=== PATIENT | male | born 1960 | race Caucasian/White ===

== ENCOUNTER 2023-07-23 08:52 | Outpatient (OUT) | payer MEDICARE, MEDICAID, SELFPAY ==
--- NOTE | 2023-07-23 | XR_ITS ---
The [address] [address] Patient Name: JILLIAN POSADAS MRN: [id number] date: 1960 Sex: M Assigned Patient Location: Current Patient Location: Accession/Order Number: [id number] Exam Date: 07/23/2023 08:53 Report Date: 07/23/2023 13:33 At the request of: RAEANN CARRILLO Procedure: XR ankle TE min 3V EXAMINATION: XR ankle TE min 3V, XR foot TE min 3V HISTORY: BILATERAL ANKLE PAIN COMPARISON: XR foot left 06/26/2022, XR foot right 02/09/2022 FINDINGS: RIGHT FINDINGS: BONES: Advanced degenerative changes the midfoot with complete collapse of plantar arch. Unremarkable ankle joint. Remote fractures and healing/partial healing involving the second through 5th metatarsals. 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 SOFT TISSUES: Soft tissue swelling of the foot and ankle. OTHER: Negative. LEFT FINDINGS: BONES: Advanced degenerative changes of the midfoot with moderate flattening of plantar arch. Unremarkable ankle joint. Heterotopic bone formation distal lateral to the lateral malleolus favoring sequela of remote injury. Amputation of the first toe at the level of the first metatarsal neck. No appreciable cortical destruction or periosteal reaction. SOFT TISSUES: Moderate soft tissue swelling surrounding the foot and ankle. OTHER: Negative. XR/XR ankle TE min 3V IMPRESSION: RIGHT CONCLUSION: 1. 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 2. No appreciable osteomyelitis. 3. Stable surgical changes. LEFT CONCLUSION: 1. Grossly stable marked degenerative changes and stable prior surgical changes. 2. No appreciable ostial myelitis. Electronically authenticated by: YAZAN LARA Date: 07/23/2023 13:33
--- NOTE | 2023-07-23 | XR_ITS ---
The [address] [address] Patient Name: JILLIAN POSADAS MRN: [id number] date: 1960 Sex: M Assigned Patient Location: Current Patient Location: Accession/Order Number: [id number] Exam Date: 07/23/2023 08:53 Report Date: 07/23/2023 13:33 At the request of: RAEANN CARRILLO Procedure: XR foot TE min 3V EXAMINATION: XR ankle TE min 3V, XR foot TE min 3V HISTORY: BILATERAL ANKLE PAIN COMPARISON: XR foot left 06/26/2022, XR foot right 02/09/2022 FINDINGS: RIGHT FINDINGS: BONES: Advanced degenerative changes the midfoot with complete collapse of plantar arch. Unremarkable ankle joint. Remote fractures and healing/partial healing involving the second through 5th metatarsals. 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 SOFT TISSUES: Soft tissue swelling of the foot and ankle. OTHER: Negative. LEFT FINDINGS: BONES: Advanced degenerative changes of the midfoot with moderate flattening of plantar arch. Unremarkable ankle joint. Heterotopic bone formation distal lateral to the lateral malleolus favoring sequela of remote injury. Amputation of the first toe at the level of the first metatarsal neck. No appreciable cortical destruction or periosteal reaction. SOFT TISSUES: Moderate soft tissue swelling surrounding the foot and ankle. OTHER: Negative. XR/XR foot TE min 3V IMPRESSION: RIGHT CONCLUSION: 1. 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 2. No appreciable osteomyelitis. 3. Stable surgical changes. LEFT CONCLUSION: 1. Grossly stable marked degenerative changes and stable prior surgical changes. 2. No appreciable ostial myelitis. Electronically authenticated by: YAZAN LARA Date: 07/23/2023 13:33
== END 2023-07-23 08:53 | disposition home or self-care (01) ==
PROVIDERS: Visit Provider Podiatrist Foot & Ankle Surgery
DX: M25.571 Pain in right ankle and joints of right foot (principal); M25.572 Pain in left ankle and joints of left foot; M79.671 Pain in right foot; M79.672 Pain in left foot; E11.621 Type 2 diabetes mellitus with foot ulcer; L97.428 Non-pressure chronic ulcer of left heel and midfoot with other specified severity
CPT/HCPCS: 11042; 73610; 73630; G0463

== ENCOUNTER 2023-07-23 10:28 | Outpatient (OUT) | payer MEDICARE, MEDICAID, SELFPAY ==
[2023-07-23 11:09] LABS: Basophils Percent Auto 0.3 % (0.2-2.0); Eosinophils Absolute Auto 0.2 10^3/uL (0.0-0.7); Eosinophils Percent Auto 2.1 % (0.9-7.0); Hematocrit 33.4 % (42.0-54.0); Hemoglobin 10.7 g/dL (14.0-18.0); Immature Granulocytes Abs Auto 0.03 10^3/uL (0.00-0.03); Immature Granulocytes Pct Auto 0.3 % (0.0-0.5); Lymphocytes Percent Auto 23.3 % (20.5-60.0); Mean Corpuscular Hemoglobin 30.6 pg (25.9-34.0); Mean Corpuscular Volume 95.4 fL (80.0-94.0); Mean Platelet Volume 9.6 fL (9.5-13.5); Monocytes Absolute Auto 0.5 10^3/uL (0.3-0.8); Monocytes Percent Auto 6.2 % (1.7-12.0); Neutrophils Absolute Auto 5.9 10^3/uL (1.4-6.5); Neutrophils Percent Auto 67.8 % (43.0-75.0); Platelet Count 273 10^3/uL (150-450); Red Cell Distribution Width 13.3 % (11.0-15.0); White Blood Count 8.7 10^3/uL (4.0-11.0)
[2023-07-23 11:10] LABS: C Reactive Protein 1.63 mg/dL (<=0.50)
[2023-07-23 11:13] LABS: Erythrocyte Sedimentation Rate 50 mm/hr (<=20)
== END 2023-07-23 10:29 | disposition home or self-care (01) ==
LOC: LAB 10:32
PROVIDERS: PCP Student in an Organized Health Care Education/Training Program; Visit Provider Podiatrist Foot & Ankle Surgery
DX: M14.672 Charcot's joint, left ankle and foot (principal)
CPT/HCPCS: 36415; 85025; 85652; 86140

== ENCOUNTER 2023-07-30 15:34 | Outpatient (OUT) | payer MEDICARE, MEDICAID, SELFPAY | END 2023-07-30 15:35 | disposition home or self-care (01) | LOC: WC 15:34 | PROVIDERS: PCP Student in an Organized Health Care Education/Training Program; Visit Provider Podiatrist Foot & Ankle Surgery | DX: E11.621 Type 2 diabetes mellitus with foot ulcer (principal); L97.428 Non-pressure chronic ulcer of left heel and midfoot with other specified severity | CPT/HCPCS: 11042 ==

== ENCOUNTER 2023-08-01 09:12 | Outpatient (OUT) | payer MEDICARE, MEDICAID, SELFPAY ==
--- NOTE | 2023-08-01 09:15 | CT_ITS ---
[address] [address] Patient Name: JILLIAN POSADAS MRN: [id number] date: 1960 Sex: M Assigned Patient Location: CT Current Patient Location: CT Accession/Order Number: [id number] Exam Date: 08/01/2023 09:25 Report Date: 08/01/2023 10:19 At the request of: JUANJOSE KAUR Procedure: CT ankle LT wo con EXAMINATION: CT ankle LT wo con HISTORY: Left midfoot charcot,chronic ulcer COMPARISON: 07/23/2023 plain x-ray TECHNIQUE: Multi-planar CT images were created without IV contrast. Dose reduction techniques were achieved by using automated exposure control and/or adjustment of mA and/or kV according to patient size and/or use of iterative reconstruction technique. FINDINGS: BONES: No acute fracture or dislocation. Marked degenerative changes of the midfoot and hindfoot with bone destruction bony remodeling and heterotopic ossification and extensive cystic changes. Dorsal displacement of the midfoot in relation to the hindfoot with plantar rotation of the hindfoot. SOFT TISSUES: Diffuse soft tissue swelling . 3.5 cm plantar ulceration best seen on sagittal image 69 EFFUSION: Large joint effusion OTHER: Negative. CT/CT ankle LT wo con IMPRESSION: Severe degenerative changes stable from the prior plain x-ray consistent with neuropathic osteoarthropathy Plantar ulceration with no bony changes to suggest osteomyelitis Electronically authenticated by: LUPE SOTO Date: 08/01/2023 10:19
== END 2023-08-01 09:13 | disposition home or self-care (01) ==
LOC: CT 09:12
PROVIDERS: PCP Student in an Organized Health Care Education/Training Program; Visit Provider Podiatrist Foot & Ankle Surgery
DX: M14.672 Charcot's joint, left ankle and foot (principal); L97.429 Non-pressure chronic ulcer of left heel and midfoot with unspecified severity
CPT/HCPCS: 73700

== ENCOUNTER 2023-08-06 09:00 | Outpatient (OUT) | payer MEDICARE, MEDICAID, SELFPAY | END 2023-08-06 09:01 | disposition home or self-care (01) | LOC: WC 08-07 09:09 | PROVIDERS: PCP Student in an Organized Health Care Education/Training Program; Visit Provider Physician Assistant | DX: E11.621 Type 2 diabetes mellitus with foot ulcer (principal); L97.428 Non-pressure chronic ulcer of left heel and midfoot with other specified severity; L97.418 Non-pressure chronic ulcer of right heel and midfoot with other specified severity; S90.821A Blister (nonthermal), right foot, initial encounter | CPT/HCPCS: A6213; G0463 ==

== ENCOUNTER 2023-08-13 10:27 | Outpatient (OUT) | payer MEDICARE, MEDICAID, SELFPAY | END 2023-08-13 10:28 | disposition home or self-care (01) | LOC: WC 10:27 | PROVIDERS: PCP Student in an Organized Health Care Education/Training Program; Visit Provider Podiatrist Foot & Ankle Surgery | DX: E11.621 Type 2 diabetes mellitus with foot ulcer (principal); L97.428 Non-pressure chronic ulcer of left heel and midfoot with other specified severity; L97.418 Non-pressure chronic ulcer of right heel and midfoot with other specified severity | CPT/HCPCS: 11042; 29445; A6213 ==

== ENCOUNTER 2023-08-21 09:00 | Outpatient (OUT) | payer MEDICARE, MEDICAID, SELFPAY ==
--- NOTE | 2023-08-21 09:24 | VEIN_ITS ---
The [place] [address] Patient Name: JILLIAN POSADAS MRN: [id number] date: 1960 Sex: M Assigned Patient Location: Current Patient Location: Accession/Order Number: [id number] Exam Date: 08/21/2023 09:35 Report Date: 08/21/2023 11:37 At the request of: JUANJOSE KAUR Procedure: VC SEGMENTAL PRESSURES EXAM: VC SEGMENTAL PRESSURES HISTORY: R09.89 COMPARISON: None. FINDINGS: Segmental pressures presented as follows (right, left) in mmHg. Brachial: 130, 131 Upper thigh: 165, 188 Lower thigh: 162, 176 Calf: 155, 163 DPA: 96, 143 MATTRESS STUFFER: 148, 136 1st Toe: 154, 233 STEW: 1.13, 1.09 TBI: 1.18, 1.78 The ABIs are Normal The TBI's are normal in the right, elevated on the left suggesting calcification of vessel hardening PVR waveforms: Right leg: Thigh: Grade C, moderate PAD Above knee: Grade C, moderate PAD Below knee: Grade B, mild PAD Right ankle: Grade C, moderate PAD Left leg: Thigh: Grade C, moderate PAD Above knee: Grade C, moderate PAD Below knee: Grade C, moderate PAD Right ankle: Grade B, mild PAD VEIN/VC SEGMENTAL PRESSURES IMPRESSION: Elevated tibial TBI left first metatarsal PVR waveforms suggest bilateral mild to moderate peripheral arterial disease Electronically authenticated by: LUPE SOTO Date: 08/21/2023 11:37
--- OUTSIDE RECORDS SUMMARY | 2023-08-21 09:34 | XMS_ITS | CCD ---
Author Organization [facility] Care Team Providers Care Coding Machine Operator Name Role Phone Moises Lesterssjeff Schaefer Primary Care Provider [phone] MOISES LESTERSSICA Silvano Primary Care Physician Yojake CHRISTINE Sara Silvano Primary Care Provider [phone] TITO MOREJON Attending Unavailable YONLEY, SARA Primary Care Unavailable Yonley DO, Sara L Primary Care Provider Yojake CHRISTINE Sara Silvano Primary Care Provider YONLEY, SARA L Primary Care Unavailable YONLEY, SARA L Attending Unavailable YONLEY, SARA L Referring Unavailable YONLEY, SARA L Primary Care Unavailable YONLEY, SARA L Attending Unavailable YONLEY, SARA L Referring Unavailable YONLEY, SARA L Primary Care Unavailable BACK, OMID Admitting Unavailable BACK, OMID Attending Unavailable FESTUS PEACE Consulting Unavailabl e BACK, OMID Consulting Unavailable YONLEY, SARA L Referring Unavailable YONLEY, SARA L Primary Care Unavailable YONLEY, SARA L Referring Unavailable YONLEY, SARA L Primary Care Unavailable YONLEY, SARA L Primary Care Unavailable YONLEY, SARA L Referring Unavailable YONLEY, SARA L Primary Care Unavailable YONLEY, SARA L Attending Unavailable YONLEY, SARA L Referring Unavailable YONLEY, SARA L Primary Care Unavailable YONLEY, SARA L Attending Unavailable YONLEY, SARA L Referring Unavailable YONLEY, SARA L Primary Care Unavailable YONLEY, SARA L Attending Unavailable YONLEY, SARA L Referring Unavailable YONLEY, SARA L Primary Care Unavailable YONLEY, SARA L Referring Unavailable FESTUS PEACE Attending Unavailabl e FESTUS PEACE Attending Unavailabl e Dolce, Zenon R Attending Unavailable Dolce, Zenon R Attending Unavailable Dolce, Zenon R Attending Unavailable Dolce, Zenon R Attending Unavailable Dolce, Zenon R Attending Unavailable Dolce, Zenon R Attending Unavailable Dolce, Zenon R Attending Unavailable Dolce, Zenon R Attending Unavailable Dolce, Zenon R Attending Unavailable Dolce, Zenon R Attending Unavailable Dolce, Zenon R Attending Unavailable Dolce, Zenon R Attending Unavailable Dolce, Zenon R Attending Unavailable Dolce, Zenon R Attending Unavailable AkkinaElder Attending Unavailable AkkinaElder Referring Unavailable Akkina Elder Admitting Unavailable Dolce, Zenon R Attending Unavailable Dolce, Zenon R Admitting Unavailable Moussawi, Anthony Attending Unavailable MoussawiPerlamacristian Admitting Unavailable Dolce, Zenon R Attending Unavailable Dolce, Zenon R Attending Unavailable Dolce, Zenon R Attending Unavailable Dolce, Zenon R Attending Unavailable Dolce, Zenon R Attending Unavailable Dolce, Zenon R Attending Unavailable Dolce, Zenon R Attending Unavailable Bill Ochoa Attending Unavailable Dolce, Zenon R Attending Unavailable Dolce, Zenon R Attending Unavailable Dolce, Zenon R Attending Unavailable Dolce, Zenon R Attending Unavailable Dolce, Zenon R Attending Unavailable Bill Ochoa Attending Unavailable Dolce, Zenon R Attending Unavailable Dolce, Zenon R Attending Unavailable Medications Current Medications Medication Drug Class(es) Dates Sig (Normalized) Sig (Original) Acetaminophen (3 sources) Start: 07-03-2023 acetaminophen (TYLENOL) tablet 650 mg Start: 06-26-2022 acetaminophen (TYLENOL) tablet 650 mg Start: 03-20-2020 acetaminophen (TYLENOL) tablet 650 mg acetaminophen 325 mg / HYDROcodone bitartrate 5 mg oral tablet (20 sources) Opioid Agonist Start: 05-16-2020 HYDROcodone-ac etaminophen (NORCO) 5-325 MG per tablet 1 tablet Start: 11-24-2019 Randolph 325 mg-5 mg oral tablet 1 tab(s), Oral, q6hr for pain, 6 tab(s), Refill(s) 0 Start Date: 11/24/19 Status: Ordered Advair Discus 100 mcg-50 mcg Powder (20 sources) Start: 01-19-2012 take 1 puff(s) by inhalation twice daily Advair Discus 100 mcg-50 mcg Powder 1 puff(s), Inhalation, BID, Refill(s) 0 Start Date: 01/19/12 Status: Ordered [id number] 200 actuat albuterol 0.09 mg/actuat metered dose inhaler (14 sources) beta2-Adrenergi c Agonist Start: 07-01-2023 take 2 puff(s) by inhalation every four hours as needed for wheezing albuterol sulfate HFA (PROVENTIL;VENTOLI N;PROAIR) 108 (90 Base) MCG/ACT inhaler INHALE 2 PUFFS into the lungs EVERY 4 HOURS NEEDED FOR WHEEZING 8.5 g 3 07/01/2023 Active Start: 01-03-2023 take 2 puff(s) by in halation every four hours as needed for wheezing albuterol sulfate HFA (VENTOLIN HFA) 108 (90 Base) MCG/ACT inhaler Inhale 2 puffs into the lungs every 4 hours as needed for Wheezing 18 g 3 01/03/2023 Active Start: 06-04-2022 take 2 puff(s) by mo uth every four hours as needed for wheezing VENTOLIN HFA 108 (90 Base) MCG/ACT inhaler INHALE 2 PUFFS BY MOUTH EVERY 4 HOURS NEEDED FOR WHEEZING. 18 g 0 06/04/2022 Active Start: 12-20-2021 take 2 puff(s) by mo uth every four hours as needed for wheezing PROAIR HFA 108 (90 Base) MCG/ACT inhaler INHALE 2 PUFFS BY MOUTH EVERY 4 HOURS NEEDED FOR WHEEZING 8.5 g 5 12/20/2021 Active Start: 06-15-2020 take 2 puff(s) by mo uth every four hours as needed for wheezing albuterol sulfate HFA 108 (90 Base) MCG/ACT inhaler INHALE 2 PUFFS BY MOUTH EVERY 4 HOURS NEEDED FOR WHEEZING 18 g 5 06/15/2020 Active Start: 01-20-2019 take 2 puff(s) by in halation every four hours as needed for wheezing albuterol sulfate HFA (PROAIR HFA) 108 (90 Base) MCG/ACT inhaler Inhale 2 puffs into the lungs every 4 hours as needed for Wheezing 1 Inhaler 5 01/20/2019 Active Start: 09-23-2018 take 2 puff(s) by in halation every four hours as needed for wheezing albuterol sulfate HFA (VENTOLIN HFA) 108 (90 Base) MCG/ACT inhaler Inhale 2 puffs into the lungs every 4 hours as needed for Wheezing or Shortness of Breath 1 Inhaler 0 09/23/2018 Active albuterol sulfate HFA 108 (90 Base) MCG/ACT inhaler (6 sources) Start: 12-17-2019 take 2 puff(s) by inhalation every four hours as needed for wheezing albuterol sulfate HFA 108 (90 Base) MCG/ACT inhaler INHALE 2 PUFFS EVERY 4 HOURS NEEDED FOR WHEEZING 18 g 5 12/17/2019 Active amoxicillin 500 mg oral capsule (1 source) Penicillin-class Antibacterial Start: 07-05-2023 End: 07-15-2023 take 1 capsule by mouth three times daily amoxicillin (AMOXIL) 500 MG capsule Take 1 capsule by mouth 3 times daily for 10 days 30 capsule 0 07/05/2023 07/15/2023 Active amoxicillin 875 mg / clavulanate 125 mg oral tablet (4 sources) Penicillin-class Antibacterial Start: 06-21-2022 End: 07-01-2022 take 1 tablet by mouth twice daily amoxicillin-clavu lanate (AUGMENTIN) 875-125 MG per tablet Take 1 tablet by mouth 2 times daily for 10 days 20 tablet 0 06/21/2022 06/30/2022 Discontinued (Stop Taking at Discharge) Start: 04-18-2021 End: 04-18-2021 amoxicillin-clavulanate (AUG MENTIN) 875-125 MG per tablet 1 tablet Start: 04-18-2021 End: 04-28-2021 take 1 tablet by mouth twice daily amoxicillin-clavulanate (AUGMENTIN) 875-125 MG per tablet Take 1 tablet by mouth 2 times daily for 10 days 20 tablet 0 04/18/2021 04/28/2021 Active becaplermin 0.0001 mg/mg topical gel (3 sources) Human Platelet-derived Growth Factor Start: 05-12-2020 REGRANEX 0.01 % gel benzonatate 100 mg oral capsule (4 sources) Non-narcotic Antitussive Start: 08-11-2022 End: 08-25-2022 take 1 capsule by mouth three times daily as needed for cough Tessalon 100 mg Cap 100 mg = 1 cap(s), Oral, TID, PRN Cough, X 2 week(s), # 20 cap(s), Refills(s) 0, Pharmacy: [id number], 175.3, cm, 08/09/22 15:05:00 EDT, Height/Length Dosing, 96, kg, 08/09/22 15:05:00 EDT, Weight Dosing Start Date: 08/11/22 Stop Date: 08/25/22 Status: Ordered Blood Glucose Calibration LIQD (2 sources) Start: 03-19-2023 Blood Glucose Calibration LIQD Indications: Type 2 diabetes mellitus with diabetic polyneuropathy, with long-term current use of insulin (HCC) Use to calibrate glucometer as needed 1 each 5 03/19/2023 Active Blood Glucose Monitoring Suppl (TRUE METRIX AIR GLUCOSE METER) EDDIE (20 sources) Start: 02-13-2023 Blood Glucose Monitoring Suppl (TRUE METRIX AIR GLUCOSE METER) EDDIE Indications: Type 2 diabetes mellitus with diabetic polyneuropathy, with long-term current use of insulin (HCC) Use to test sugar QID, AC and HS 1 each 0 02/13/2023 Active Start: 12-03-2017 Blood Glucose Monitoring Suppl (TRUE METRIX AIR GLUCOSE METER) EDDIE Use to test sugar TID and PRN 1 Device 0 12/03/2017 Active Blood Glucose Monitoring Suppl (TRUE METRIX METER) w/Device KIT (19 sources) Start: 01-20-2019 Blood Glucose Monitoring Suppl (TRUE METRIX METER) w/Device KIT use THREE TIMES DAILY 0 01/20/2019 Active 60 actuat budesonide 0.16 mg/actuat / formoterol fumarate 0.0045 mg/actuat metered dose inhaler (20 sources) Corticosteroid, beta2-Adrenergi c Agonist Start: 05-21-2023 take 2 puff(s) by inhalation twice daily budesonide-formot elizabeth (SYMBICORT) 160-4.5 MCG/ACT AERO INHALE 2 PUFFS TWICE DAILY. 30.6 g 5 05/21/2023 Active Start: 11-17-2021 take 2 puff(s) by in halation twice daily budesonide-formoterol (SYMBICORT) 160-4.5 MCG/ACT AERO INHALE 2 PUFFS into the lungs TWICE DAILY 30.6 g 5 11/17/2021 Active Start: 11-15-2020 take 2 puff(s) by in halation twice daily budesonide-formoterol (SYMBICORT) 160-4.5 MCG/ACT AERO Inhale 2 puffs into the lungs 2 times daily 30.6 g 1 11/15/2020 Active Start: 04-13-2020 take 2 puff(s) by in halation twice daily SYMBICORT 160-4.5 MCG/ACT AERO Inhale 2 puffs into the lungs 2 times daily 30.6 g 1 04/13/2020 Active Start: 03-20-2020 take 2 puff(s) by in halation twice daily 2 puff, Inhalation, 2 TIMES DAILY, First dose on 03/20/20 at 0900 Rinse mouth out with water (without swallowing) after every dose. Start: 10-22-2019 take 2 puff(s) by in halation twice daily SYMBICORT 160-4.5 MCG/ACT AERO Inhale 2 puffs into the lungs 2 times daily 30.6 g 1 10/22/2019 Active Start: 01-20-2019 take 2 puff(s) by in halation twice daily budesonide-formoterol (SYMBICORT) 160-4.5 MCG/ACT AERO Inhale 2 puffs into the lungs 2 times daily 3 Inhaler 1 01/20/2019 Active Start: 09-23-2018 take 2 puff(s) by in halation twice daily budesonide-formoterol (SYMBICORT) 160-4.5 MCG/ACT AERO Inhale 2 puffs into the lungs 2 times daily 1 Inhaler 0 09/23/2018 Active calcium chloride 0.0014 meq/ml / potassium chloride 0.004 meq/ml / sodium chloride 0.103 meq/ml / sodium lactate 0.028 meq/ml injectable solution (1 source) Start: 05-16-2020 lactated ringe rs infusion cefepime (MAXIPIME) 2,000 mg in sodium chloride 0.9 % 50 mL IVPB (mini-bag) (1 source) Start: 06-27-2022 End: 07-04-2022 cefepime (MAXIPIME) 2,000 mg in sodium chloride 0.9 % 50 mL IVPB (mini-bag) cephalexin 500 mg oral capsule (4 sources) Cephalosporin Antibacterial Start: 04-10-2022 End: 04-20-2022 take 1 capsule by mouth three times daily cephALEXin (KEFLEX) 500 MG capsule Take 1 capsule by mouth 3 times daily for 10 days 30 capsule 0 04/10/2022 04/20/2022 Active Start: 02-09-2022 End: 02-19-2022 take 1 capsule by mouth three times daily cephALEXin (KEFLEX) 500 MG capsule Take 1 capsule by mouth 3 times daily for 10 days 30 capsule 0 02/09/2022 02/19/2022 Start: 12-13-2020 take 1 capsule by mo ut four times daily cephALEXin (KEFLEX) 500 MG capsule Take 1 capsule by mouth 4 times daily 40 capsule 0 12/13/2020 Active Start: 11-30-2020 take 1 capsule by mo ut four times daily cephALEXin (KEFLEX) 500 MG capsule Take 1 capsule by mouth 4 times daily 40 capsule 0 11/30/2020 Active clindamycin 300 mg oral capsule (3 sources) Lincosamide Antibacterial Start: 06-21-2022 End: 06-30-2022 take 1 capsule by mouth three times daily clindamycin (CLEOCIN) 300 MG capsule Take 1 capsule by mouth 3 times daily for 7 days 21 capsule 0 06/21/2022 06/30/2022 Discontinued (Stop Taking at Discharge) Start: 06-21-2022 End: 06-21-2022 clindamycin (CLEOCIN) capsul e 300 mg Continuous Blood Gluc Manager Plant (DEXCOM G6 COOK RAILROAD) EDDIE (2 sources) Start: 12-13-2020 Continuous Blood Gluc Manager Plant (DEXCOM G6 COOK RAILROAD) EDDIE Indications: Uncontrolled type 2 diabetes mellitus with peripheral neuropathy (HCC) , detention current use of insulin (HCC) Use to monitor glucose continuously. Replace yearly. 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 Replace every 30 days 3 each 3 12/13/2020 Active Continuous Blood Gluc Transmit (DEXCOM G6 TRANSMITTER) [facility] (2 sources) Start: 12-13-2020 Continuous Blood Gluc Transmit (DEXCOM G6 TRANSMITTER) [facility] Indications: Uncontrolled type 2 diabetes mellitus with peripheral neuropathy (HCC) , detention current use of insulin (HCC) Use to monitor glucose continuously. Replace every 3 mos. 1 each 3 12/13/2020 Active 12 hr dextromethorphan hydrobromide 60 mg / guaiFENesin 1200 mg extended release oral tablet (1 source) Uncompetitive [place] te Receptor Antagonist, Sigma-1 Agonist Start: 04-18-2021 take 1 tablet by mouth every twelve hours as needed for cough Dextromethorphan-g uaiFENesin 60-1200 MG TB12 Take 1 tablet by mouth every 12 hours as needed (cough congestion) 28 tablet 0 04/18/2021 Active diphenhydrAMINE hydrochloride 25 mg oral capsule (20 sources) Histamine-1 Receptor Antagonist Start: 01-19-2012 take 1 capsule by mouth twice daily Benadryl 25 mg Cap 25 mg = 1 cap(s), Oral, BID, Refills(s) 0 Start Date: 01/19/12 Status: Ordered doxycycline hyclate 100 mg oral capsule (3 sources) Tetracycline-class Drug Start: 06-30-2022 End: 07-07-2022 take 1 capsule by mouth twice daily doxycycline hyclate (VIBRAMYCIN) 100 MG capsule Take 1 capsule by mouth 2 times daily for 7 days 14 capsule 0 06/30/2022 07/07/2022 Active Start: 03-26-2020 End: 04-02-2020 take 1 capsule by mouth twice daily doxycycline hyclate (VIBRAMYCIN) 100 MG capsule Take 1 capsule by mouth 2 times daily for 7 days 14 capsule 0 03/26/2020 04/02/2020 Active doxycycline (VIBRAMYCIN) 100 mg in sodium chloride 0.9 % 100 mL IVPB (1 source) Start: 07-04-2023 End: 07-11-2023 doxycycline (VIBRAMYCIN) 100 mg in sodium chloride 0.9 % 100 mL IVPB 0.5 ml dulaglutide 3 mg/ml auto-injector (9 sources) GLP-1 Receptor Agonist Start: 04-30-2022 inject 1.5 mg by subcutaneous injection every week TRULICITY 1.5 MG/0.5ML SC injection INJECT 1.5mg under the skin once a week. 2 mL 5 04/30/2022 Active Start: 11-17-2021 Dulaglutide (T RULICITY) 1.5 MG/0.5ML SOPN Inject 1.5 mg into the skin once a week 4 Adjustable Dose Pre-filled Pen Syringe 5 11/17/2021 Active Start: 12-13-2020 Dulaglutide (T RULICITY) 1.5 MG/0.5ML SOPN Inject 1.5 mg into the skin once a week 4 pen 5 12/13/2020 Active Dulaglutide (TRULICITY) 3 MG/0.5ML SOPN (2 sources) Start: 05-21-2023 Dulaglutide (TRULICITY) 3 MG/0.5ML SOPN Inject 3 mg into the skin once a week 2 mL 5 05/21/2023 Active empagliflozin 10 mg oral tablet (1 source) Sodium-Glucose Cotransporter 2 Inhibitor Start: 06-20-2023 take 1 tablet by mouth once daily JARDIANCE 10 MG tablet Take 1 tablet by mouth daily 0 06/20/2023 Active esomeprazole 40 mg delayed release oral capsule (20 sources) Proton Pump Inhibitor Start: 01-19-2012 Nexium 40 mg Cap-EC Oral, Daily, Refills(s) 0 Start Date: 01/19/12 Status: Ordered ferrous sulfate 325 mg oral tablet (20 sources) Start: 08-11-2022 take 1 tablet by mouth three times daily ferrous sulfate 325 mg Tab 325 mg = 1 tab(s), Oral, TID, # 90 tab(s), Refills(s) 0, Pharmacy: [id number], 175.3, cm, 08/09/22 15:05:00 EDT, Height/Length Dosing, 96, kg, 08/09/22 15:05:00 EDT, Weight Dosing Start Date: 08/11/22 Status: Ordered 30 actuat fluticasone furoate 0.2 mg/actuat / vilanterol 0.025 mg/actuat dry powder inhaler (5 sources) Corticosteroid, beta2-Adrenergic Agonist Start: 04-19-2020 take 1 puff(s) by inhalation once daily Fluticasone furoate-vilanter ol (BREO ELLIPTA) 200-25 MCG/INH AEPB inhaler Inhale 1 puff into the lungs daily 30 each 5 04/19/2020 Active glimepiride 4 mg oral tablet (20 sources) Sulfonylurea Start: 08-11-2022 take 1 tablet by mouth twice daily at mealtime glimepiride (AMARYL) 4 MG tablet Take 1 tablet by mouth 2 times daily (with meals) 180 tablet 3 05/21/2023 Active Start: 01-19-2012 take 1 tablet by yadira th once daily glimepiride 4 mg Tab 4 mg = 1 tab(s), Oral, Daily, Refills(s) 0 Start Date: 01/19/12 Status: Ordered 1000 ml glucose 100 mg/ml injection (9 sources) Start: 07-03-2023 take 1 mL intravenously every hour IntraVENous, at 100 mL/hr, CONTINUOUS PRN, if blood glucose remains LESS THAN 70 mg/dL after 2 dextrose 10% intravenous boluses or administration of glucagon, Starting on Sat07/03/23 at 1750 If blood glucose fails to stabilize after 2 dextrose 10% intravenous boluses or glucagon administration, start dextrose 10% infusion at 100 mL/hour and repeat blood glucose at 30 and 60 minutes. If blood glucose is GREATER THAN 70 mg/dL after 60 minutes, discontinue dextrose 10% infusion. Start: 07-03-2023 dextrose bolus 10% 125 mL Start: 07-03-2023 16 g (4 tablet ), Oral, PRN, Starting on Sat07/03/23 at 1750, Until Discontinued, Low blood sugar If blood glucose is LESS THAN 70 mg/dL and patient is alert and tolerating oral. Give 4 tablets (16g) Repeat blood glucose in 15 minutes. If blood glucose is LESS THAN 70 mg/dL, repeat treatment and recheck blood glucose in 15 minutes x 2. If blood glucose remains LESS THAN 70 mg/dL, notify provider. Start: 06-26-2022 take 1 mL intravenou sly every hour IntraVENous, at 100 mL/hr, CONTINUOUS PRN, if blood glucose remains LESS THAN 70 mg/dL after 2 dextrose 10% intravenous boluses or administration of glucagon, Starting on Sat06/26/22 at 1820 If blood glucose fails to stabilize after 2 dextrose 10% intravenous boluses or glucagon administration, start dextrose 10% infusion at 100 mL/hour and repeat blood glucose at 30 and 60 minutes. If blood glucose is GREATER THAN 70 mg/dL after 60 minutes, discontinue dextrose 10% infusion. Start: 06-26-2022 dextrose bolus 10% 125 mL Start: 06-26-2022 16 g (4 tablet ), Oral, PRN, Starting on Sat06/26/22 at 1820, Until Discontinued, Low blood sugar If blood glucose is LESS THAN 70 mg/dL and patient is alert and tolerating oral. Give 4 tablets (16g) Repeat blood glucose in 15 minutes. If blood glucose is LESS THAN 70 mg/dL, repeat treatment and recheck blood glucose in 15 minutes x 2. If blood glucose remains LESS THAN 70 mg/dL, notify provider. Start: 03-20-2020 15 g, Oral, MS N, Low blood sugar, Starting 03/20/20 at 0358 If blood glucose less than 50 mg/dL and patient ALERT and TOLERATING PO, give 2 tubes glucose gel. If blood glucose less than 70 mg/dL and patient ALERT and TOLERATING PO, give 1 tube glucose gel. Repeat blood glucose in 15 minutes. If blood glucose is less than 70 mg/dL, repeat treatment and recheck blood glucose in 15 minutes x2 and notify provider. Start: 03-20-2020 12.5 g, Intrav enous, PRN, Low blood sugar, Blood glucose less than 70 mg/dL and patient NOT ALERT or NPO., Starting 03/20/20 at 0358 If patient does not respond within 5 minutes, repeat dose x1. Start D5W at 100 mL/hour until ordering provider can be reached. Repeat blood glucose in 15 minutes. If blood glucose is less than 70 mg/dL, repeat treatment and recheck blood glucose in 15 minutes x2. If using Glucostabilizer, dose as instructed per system. Start: 03-20-2020 100 mL/hr, Int ravenous, at 100 mL/hr, PRN, Low blood sugar, Starting 03/20/20 at 0358 Start infusion following administration of dextrose 50% or glucagon. 12 hr guaiFENesin 600 mg extended release oral tablet (4 sources) Start: 08-11-2022 End: 08-25-2022 take 1 tablet by mouth twice daily Mucinex 600 mg Tab-ER 600 mg = 1 tab(s), Oral, BID, X 2 week(s), # 28 tab(s), Refills(s) 0, Pharmacy: [id number], 175.3, cm, 08/09/22 15:05:00 EDT, Height/Length Dosing, 96, kg, 08/09/22 15:05:00 EDT, Weight Dosing Start Date: 08/11/22 Stop Date: 08/25/22 Status: Ordered hydroCHLOROthiazide 25 mg / lisinopril 20 mg oral tablet (17 sources) Thiazide Diuretic, Angiotensin Converting Enzyme Inhibitor Start: 04-30-2022 End: 06-30-2022 take 0.5 tablet by mouth once daily lisinopril-hydroCH LOROthiazide (PRINZIDE;ZESTORET IC) 20-25 MG per tablet TAKE 1/2 (ONE-HALF) OF A TABLET BY MOUTH EVERY DAY. 45 tablet 5 04/30/2022 06/30/2022 Discontinued (Stop Taking at Discharge) Start: 11-17-2021 take 0.5 tablet by mouth once daily lisinopril-hydroCHLOROthiazide (PRINZIDE;ZESTORETIC) 20-25 MG per tablet Take 0.5 tablets by mouth daily 45 tablet 1 11/17/2021 Active Start: 11-15-2020 take 0.5 tablet by mouth once daily lisinopril-hydroCHLOROthiazide (PRINZIDE;ZESTORETIC) 20-25 MG per tablet Take 0.5 tablets by mouth daily 45 tablet 1 11/15/2020 Active Start: 04-13-2020 take 0.5 tablet by mouth once daily lisinopril-hydroCHLOROthiazide (PRINZIDE;ZESTORETIC) 20-25 MG per tablet Take 0.5 tablets by mouth daily 45 tablet 1 04/13/2020 Active Start: 09-23-2018 take 0.5 tablet by mouth once daily lisinopril-hydrochlorothiazide (PRINZIDE;ZESTORETIC) 20-25 MG per tablet Take 0.5 tablets by mouth daily 45 tablet 1 10/21/2018 Active hydroCHLOROthiazide 12.5 mg / losartan potassium 50 mg oral tablet (20 sources) Thiazide Diuretic, Angiotensin 2 Receptor Pierre Start: 01-19-2012 take 1 tablet by mouth once daily hydrochlorothiazide-losartan 12.5 mg-50 mg Tab 1 tab(s), Oral, Daily, Refill(s) 0 Start Date: 01/19/12 Status: Ordered sodium hypochlorite 2.5 mg/ml topical solution (2 sources) Start: 10-17-2022 HYSEPT 0.25 % SOLN Apply onc e daily for infected wound as directed for 14 days 0 10/17/2022 Active 3 ml insulin aspart, human 100 unt/ml pen injector (12 sources) Insulin Analog Start: 05-21-2023 insulin aspart (NOVOLOG FLEXPEN) 100 UNIT/ML injection pen Inject 40 Units into the skin 3 times daily (before meals) 15 mL 5 05/21/2023 Active Start: 04-30-2022 NOVOLOG FLEXPE N 100 UNIT/ML injection pen inject 15 units into the skin 3 (THREE) times a day before meals 15 mL 5 04/30/2022 Active Start: 09-25-2021 NOVOLOG FLEXPE N 100 UNIT/ML injection pen inject 15 units into the skin 3 (THREE) times a day before meals 15 mL 5 09/25/2021 Active Start: 11-15-2020 insulin aspart (NOVOLOG FLEXPEN) 100 UNIT/ML injection pen Inject 10 Units into the skin 3 times daily (before meals) 5 pen 5 11/15/2020 Active 3 ml insulin degludec 100 unt/ml pen injector (19 sources) Insulin Analog Start: 06-25-2023 TRESIBA FLEXTO UCH 100 UNIT/ML SOPN Inject 70 Units into the skin daily 0 06/25/2023 Active Start: 05-21-2023 End: 06-20-2023 Insulin Degludec (TRESIBA FL EXTOUCH) 100 UNIT/ML SOPN Inject 70 Units into the skin daily 45 mL 5 05/21/2023 06/20/2023 Active Start: 05-18-2022 Insulin Deglud ec (TRESIBA FLEXTOUCH) 200 UNIT/ML SOPN INJECT 100 UNITS under the skin once DAILY. 27 mL 5 05/18/2022 Active Start: 11-17-2021 Insulin Deglud ec (TRESIBA FLEXTOUCH) 200 UNIT/ML SOPN inejct 100 units into the skin daily 27 mL 5 11/17/2021 Active Start: 04-10-2021 Insulin Deglud ec (TRESIBA FLEXTOUCH) 200 UNIT/ML SOPN inejct 90 units into the skin daily 27 mL 5 04/10/2021 Active Start: 11-15-2020 Insulin Deglud ec (TRESIBA FLEXTOUCH) 200 UNIT/ML SOPN inejct 90 units into the skin daily 27 mL 5 11/15/2020 Active Start: 04-13-2020 Insulin Deglud ec (TRESIBA FLEXTOUCH) 200 UNIT/ML SOPN inejct 90 units into the skin daily 27 mL 5 05/16/2020 Active Start: 01-19-2020 TRESIBA FLEXTO UCH 200 UNIT/ML SOPN INJECT 90 UNITS into the skin DAILY 35 mL 0 01/19/2020 Active Start: 03-12-2019 Insulin Deglud ec (TRESIBA FLEXTOUCH) 200 UNIT/ML SOPN Inject 86 Units into the skin daily 7 pen 5 03/12/2019 Active insulin glargine 100 unt/ml injectable solution (15 sources) Insulin Analog Start: 07-03-2023 insulin glargi ne (LANTUS) injection vial 56 Units Start: 08-12-2022 inject 20 [IU] by colon bcutaneous injection at bedtime insulin glargine 100 units/mL SubQ Ana 10 mL 20 unit(s), SubCutaneous, Bedtime, # 15 mL, Refills(s) 0, Pharmacy: [id number], 175.3, cm, 08/09/22 15:05:00 EDT, Height/Length Dosing, 96, kg, 08/09/22 15:05:00 EDT, Weight Dosing Start Date: 08/12/22 Status: Ordered Start: 06-28-2022 insulin glargi ne (LANTUS) injection vial 45 Units Start: 06-26-2022 End: 06-28-2022 insulin glargine (LANTUS) injection vial 40 Units Start: 03-24-2020 insulin glargi ne (LANTUS) injection vial 10 Units Start: 03-21-2020 insulin glargi ne (LANTUS) injection vial 90 Units insulin glargine 100 units/mL SubQ Ana 10 mL (20 sources) Start: 08-12-2022 inject 20 [IU] by subcutaneous injection at bedtime insulin glargine 100 units/mL SubQ Ana 10 mL 20 unit(s), SubCutaneous, Bedtime, # 15 mL, Refills(s) 0, Pharmacy: [id number], 175.3, cm, 08/09/22 15:05:00 EDT, Height/Length Dosing, 96, kg, 08/09/22 15:05:00 EDT, Weight Dosing Start Date: 08/12/22 Status: Ordered Insulin Lispro KwikPen 100 units/mL injectable solution (20 sources) Start: 08-11-2022 Insulin Lispro KwikPen 100 units/mL injectable solution See Instructions, Check BS QID AC, HS Take 2 units of lispro if BS between 151-200 Take 4 units of lispro if BS between 201-250 Take 6 units of lispro if BS between 251-300 Take 8 units of lispro if BS between 301-350 Take 10 units of lispro if BS between 351-400 Take 14 units of lispro if BS between >400 Total maximum dose per day is 56 units, # 15 mL, Refills(s) 0, Pharmacy: [id number], 175.3, cm, 08/09/22 15:05:00 EDT, Height/Length Dosing, 96, kg, 08/09/22 15:05:00 EDT, Weight Dosing Start Date: 08/11/22 Status: Ordered Start: 08-11-2022 Insulin Lispro KwikPen 100 units/mL injectable solution See Instructions, Check BS QID AC, HS Take 2 units of lispro if BS between 151-200 Take 4 units of lispro if BS between 201-250 Take 6 units of lispro if BS between 251-300 Take 8 units of lispro if BS between 301-350 Take 10 units of lispro if B... Start Date: 08/11/22 Status: Ordered I-tvvuxlbkkebx-F0-B12 (METANX) 3-90.314-2-35 MG CAPS capsule (18 sources) Start: 03-26-2020 take 1 capsule by mouth once daily, then take 3-90.314 capsules by mouth F-hmpiebstwfxv-F5-B12 (METANX) 3-90.314-2-35 MG CAPS capsule Take 1 capsule by mouth daily 30 capsule 1 03/26/2020 Active L-vlarhjclzddn-Z3-B12 3-35-2 mg (METANX) capsule (1 source) Start: 03-25-2020 U-icehjntfemgn-I1-B12 3-35-2 mg (METANX) capsule levoFLOXacin 500 mg oral tablet (5 sources) Quinolone Antimicrobial Start: 06-30-2022 End: 07-10-2022 take 1 tablet by mouth once daily levoFLOXacin (LEVAQUIN) 500 MG tablet Take 1 tablet by mouth daily for 10 days 10 tablet 0 06/30/2022 07/10/2022 Active Start: 11-15-2020 End: 11-30-2020 take 1 tablet by mouth once daily levoFLOXacin (LEVAQUIN) 750 MG tablet TAKE 1 TABLET BY MOUTH ONCE DAILY FOR 10 DAYS 10 tablet 0 11/15/2020 11/30/2020 Discontinued (LIST CLEANUP) Start: 03-26-2020 End: 04-02-2020 take 1 tablet by mouth once daily levoFLOXacin (LEVAQUIN) 500 MG tablet Take 1 tablet by mouth daily for 7 days 7 tablet 0 03/26/2020 04/02/2020 Active 3 ml liraglutide 6 mg/ml pen injector (10 sources) GLP-1 Receptor Agonist Start: 06-15-2020 inject 1.8 mg by subcutaneous injection once daily VICTOZA 18 MG/3ML SOPN SC injection inject 1.8 mg under the skin once daily 9 mL 5 06/15/2020 Active Start: 12-17-2019 inject 1.8 mg by sub cutaneous injection once daily VICTOZA 18 MG/3ML SOPN SC injection INJECT 1.8 mg under the skin once DAILY 9 mL 5 12/17/2019 Active Start: 01-20-2019 Liraglutide (V ICTOZA) 18 MG/3ML SOPN SC injection Inject 1.8 mg into the skin daily 3 mL 1 01/20/2019 Active Start: 08-05-2018 Liraglutide (V ICTOZA) 18 MG/3ML SOPN SC injection Inject 1.8 mg into the skin daily 3 mL 0 08/05/2018 Active Lisinopril (20 sources) Angiotensin Converting Enzyme Inhibitor Start: 03-21-2020 lisinopril (PRINIVIL;ZESTRIL) tablet 10 mg Start: 01-19-2012 take 1 tablet by yadira th once daily lisinopril 20 mg Tab 20 mg = 1 tab(s), Oral, Daily, Refills(s) 0 Start Date: 01/19/12 Status: Ordered meloxicam 7.5 mg oral tablet (3 sources) Nonsteroidal Anti-inflammatory Drug Start: 06-21-2022 take 1 tablet by mouth once daily as needed for pain meloxicam (MOBIC) 7.5 MG tablet Take 1 tablet by mouth daily as needed for Pain 10 tablet 1 06/21/2022 Active 24 hr metFORMIN hydrochloride 750 mg extended release oral tablet (20 sources) Biguanide Start: 08-11-2022 take 1 tablet by mouth twice daily metformin 750 mg ER Tab 750 mg = 1 tab(s), Oral, BID, # 60 tab(s), Refills(s) 0, Pharmacy: [id number], 175.3, cm, 08/09/22 15:05:00 EDT, Height/Length Dosing, 96, kg, 08/09/22 15:05:00 EDT, Weight Dosing Start Date: 08/11/22 Status: Ordered Start: 08-11-2022 take 1 tablet by yadira th at bedtime metformin 500 mg ER Tab 500 mg = 1 tab(s), Oral, Bedtime, # 30 tab(s), Refills(s) 0, Pharmacy: [id number], 175.3, cm, 08/09/22 15:05:00 EDT, Height/Length Dosing, 96, kg, 08/09/22 15:05:00 EDT, Weight Dosing Start Date: 08/11/22 Status: Ordered Start: 07-27-2021 take 1 tablet by yadira th twice daily at mealtime metFORMIN (GLUCOPHAGE) 1000 MG tablet TAKE 1 TABLET BY MOUTH TWICE DAILY WITH MEALS 180 tablet 1 07/27/2021 Active Start: 03-16-2020 take 1000 mg by mout h twice daily at mealtime 1,000 mg, Oral, 2 TIMES DAILY WITH MEALS, First dose on 03/20/20 at 0800 Start: 01-20-2019 take 1 tablet by yadira th twice daily at mealtime metFORMIN (GLUCOPHAGE) 1000 MG tablet Take 1 tablet by mouth two times daily with meals 180 tablet 1 01/20/2019 Active Start: 09-23-2018 take 1 tablet by yadira th twice daily at mealtime metFORMIN (GLUCOPHAGE) 1000 MG tablet Take 1 tablet by mouth two times daily with meals 60 tablet 0 09/23/2018 Active metFORMIN hydrochloride 500 mg / repaglinide 1 mg oral tablet (20 sources) Glinide, Biguanide Start: 01-19-2012 take 1 tablet by mouth twice daily metformin-repaglinide 500 mg-1 mg oral tablet 1 tab(s), Oral, BID, Refill(s) 0 Start Date: 01/19/12 Status: Ordered 24 hr metoprolol succinate 25 mg extended release oral tablet (20 sources) beta-Adrenergi c Pierre Start: 08-12-2022 End: 08-14-2022 metoprolol 25 mg ER Tab 12.5 mg = 0.5 tab(s), Oral, Daily, # 15 tab(s), Refills(s) 0, Pharmacy: [id number], 175.3, cm, 08/09/22 15:05:00 EDT, Height/Length Dosing, 96, kg, 08/09/22 15:05:00 EDT, Weight Dosing Start Date: 08/12/22 Status: Ordered Misc. Devices (WALKER WHEELS) MISC (3 sources) Start: 03-26-2020 M[facility]. Devices (WALKER WHEELS) [facility] Indications: Osteomyelitis of right foot, unspecified type (HCC) , Cellulitis of right foot 1 each by Does not apply route once for 1 dose 1 each 0 03/26/2020 Active Multiple Vitamin (MULTIVITAMIN) TABS tablet (4 sources) Start: 06-30-2022 take 1 tablet by mouth once daily Multiple Vitamin (MULTIVITAMIN) TABS tablet Take 1 tablet by mouth daily 30 tablet 3 06/30/2022 Active Nebulizers (COMPRESSOR/NEBULI ZER) MISC (8 sources) Start: 06-04-2016 Nebulizers (COMPRESSOR/NEBULIZER) MISC Indications: COPD with exacerbation (HCC) , Hypoxemia Use for breathing tx every 4 hours as needed for shortness of breath and wheezing 1 each 0 06/04/2016 Active Nexium 40 mg Cap-EC (8 sources) Start: 01-19-2012 Nexium 40 mg Cap-EC Oral, Daily, Refills(s) 0 Start Date: 01/19/12 Status: Ordered omeprazole 40 mg delayed release oral capsule (20 sources) Proton Pump Inhibitor Start: 05-21-2023 take 1 capsule by mouth twice daily omeprazole (PRILOSEC) 40 MG delayed release capsule TAKE 1 CAPSULE BY MOUTH TWICE DAILY. 60 capsule 5 05/21/2023 Active Start: 04-30-2022 take 1 capsule by mo uth twice daily omeprazole (PRILOSEC) 40 MG delayed release capsule TAKE 1 CAPSULE BY MOUTH TWICE DAILY. 60 capsule 5 04/30/2022 Active Start: 11-17-2021 take 1 capsule by mo uth twice daily omeprazole (PRILOSEC) 40 MG delayed release capsule TAKE 1 CAPSULE BY MOUTH BID 60 capsule 5 11/17/2021 Active Start: 11-15-2020 take 1 capsule by mo uth once daily omeprazole (PRILOSEC) 40 MG delayed release capsule TAKE 1 CAPSULE BY MOUTH EVERY DAY 90 capsule 1 11/15/2020 Active Start: 04-13-2020 take 1 capsule by mo uth once daily omeprazole (PRILOSEC) 40 MG delayed release capsule TAKE 1 CAPSULE BY MOUTH EVERY DAY 90 capsule 1 04/13/2020 Active Start: 01-19-2020 take 1 capsule by mo uth once daily omeprazole (PRILOSEC) 40 MG delayed release capsule TAKE 1 CAPSULE BY MOUTH EVERY DAY 90 capsule 0 01/19/2020 Active Start: 01-20-2019 take 1 capsule by mo uth once daily omeprazole (PRILOSEC) 40 MG delayed release capsule TAKE 1 CAPSULE BY MOUTH EVERY DAY 90 capsule 1 01/20/2019 Active Start: 09-23-2018 take 1 capsule by mo uth once daily omeprazole (PRILOSEC) 40 MG delayed release capsule TAKE 1 CAPSULE BY MOUTH EVERY DAY 30 capsule 0 09/23/2018 Active ondansetron (ZOFRAN-ODT) disintegrating tablet 4 mg (2 sources) Start: 07-03-2023 ondansetron (Z OFRAN-ODT) disintegrating tablet 4 mg Start: 06-26-2022 ondansetron (Z OFRAN-ODT) disintegrating tablet 4 mg povidone-iodine 100 mg/ml topical spray (1 source) Antiseptic Start: 07-04-2023 povidone-iodine (BETADINE) 10 % external solution pramipexole dihydrochloride 0.5 mg oral tablet (9 sources) Nonergot Dopamine Agonist Start: 04-13-2020 take 1 tablet by mouth twice daily pramipexole (MIRAPEX) 0.5 MG tablet 1 by mouth twice daily 180 tablet 1 04/13/2020 Active Start: 03-20-2020 take 0.5 mg by mouth twice daily 0.5 mg, Oral, 2 TIMES DAILY, First dose on 03/20/20 at 0900 Start: 08-17-2019 take 1 tablet by yadira twice daily pramipexole (MIRAPEX) 0.5 MG tablet TAKE 1 TABLET BY MOUTH TWICE DAILY 180 tablet 1 08/17/2019 Active Start: 01-20-2019 take 1 tablet by yadira twice daily pramipexole (MIRAPEX) 0.5 MG tablet TAKE 1 TABLET BY MOUTH TWICE DAILY 180 tablet 1 01/20/2019 Active Start: 09-23-2018 take 1 tablet by [facility] twice daily pramipexole (MIRAPEX) 0.5 MG tablet TAKE 1 TABLET BY MOUTH TWICE DAILY 60 tablet 0 09/23/2018 Active Promethazine (1 source) Phenothiazine Start: 03-20-2020 promethazine ( PHENERGAN) tablet 12.5 mg repaglinide 1 mg oral tablet (20 sources) Glinide Start: 08-11-2022 repaglinide 1 mg Tab 1 mg = 1 tab(s), Oral, TIDAC, # 90 tab(s), Refills(s) 0, Pharmacy: [id number], 175.3, cm, 08/09/22 15:05:00 EDT, Height/Length Dosing, 96, kg, 08/09/22 15:05:00 EDT, Weight Dosing Start Date: 08/11/22 Status: Ordered Respiratory Therapy Supplies (NEBULIZER/TUBING/MOUTHPIE CE) KIT (19 sources) Start: 04-04-2022 Respiratory Th erapy Supplies (NEBULIZER/TUBING/MOUTHPI ERASMO) KIT 1 kit by Does not apply route daily as needed (SOB) Adult mask please 1 kit 0 04/04/2022 Active Start: 10-23-2018 Respiratory Th erapy Supplies (NEBULIZER/TUBING/MOUTHPIECE) KIT Indications: Chronic obstructive pulmonary disease with acute exacerbation (HCC) 1 kit by Does not apply route every 4 hours as needed (SOB) Adult sized mask please 1 kit 0 10/23/2018 Active sildenafil 20 mg oral tablet (18 sources) Phosphodiesterase 5 Inhibitor Start: 01-20-2019 take 3-5 tablets by mouth once daily as needed sildenafil (REVATIO) 20 MG tablet 3-5 tabs po daily prn 30 tablet 0 01/20/2019 Active Start: 08-05-2018 take 3-5 tablets by mouth once daily as needed sildenafil (REVATIO) 20 MG tablet 3-5 tabs po daily prn 30 tablet 0 08/05/2018 Active silver sulfADIAZINE 10 mg/ml topical cream (3 sources) Sulfonamide Antibacterial Start: 04-06-2022 End: 06-30-2022 silver sulfADIAZINE (SILVADENE) 1 % cream APPLY once a day for 30 days 0 04/06/2022 06/30/2022 Discontinued (Stop Taking at Discharge) simvastatin 40 mg oral tablet (20 sources) HMG-CoA Reductase Inhibitor Start: 01-19-2012 take 1 tablet by mouth once daily at bedtime Zocor 40 mg Tab 40 mg = 1 tab(s), Oral, Once a day (at bedtime), Refills(s) 0 Start Date: 01/19/12 Status: Ordered SITagliptin 100 mg oral tablet (20 sources) Dipeptidyl Peptidase 4 Inhibitor Start: 01-19-2012 take 1 tablet by mouth once daily Januvia 100 mg Tab 100 mg = 1 tab(s), Oral, Daily, Refills(s) 0 Start Date: 01/19/12 Status: Ordered sulfamethoxazole 800 mg / trimethoprim 160 mg oral tablet (1 source) Dihydrofolate Reductase Inhibitor Antibacterial, Sulfonamide Antimicrobial Start: 11-30-2020 End: 12-10-2020 take 1 tablet by mouth twice daily sulfamethoxazole -trimethoprim (BACTRIM DS) 800-160 MG per tablet Take 1 tablet by mouth 2 times daily for 10 days 20 tablet 0 11/30/2020 12/10/2020 Active tiotropium 0.018 mg inhalation powder (8 sources) Anticholinergic Start: 05-21-2023 take 1 capsule by inhalation once daily tiotropium (SPIRIVA HANDIHALER) 18 MCG inhalation capsule Inhale 1 capsule into the lungs daily 30 capsule 5 05/21/2023 Active Start: 04-30-2022 take 1 capsule by in halation once daily SPIRIVA HANDIHALER 18 MCG inhalation capsule Inhale 1 (ONE) CAPSULES into the lungs DAILY 30 capsule 5 04/30/2022 Active Start: 09-25-2021 take 1 capsule by in halation once daily SPIRIVA HANDIHALER 18 MCG inhalation capsule INHALE 1 (ONE) capsule into the lungs DAILY 30 capsule 5 09/25/2021 Active traMADol hydrochloride 50 mg oral tablet (1 source) Opioid Agonist Start: 03-20-2020 traMADol (ULTRAM) tablet 50 mg 7 actuat umeclidinium 0.0625 mg/actuat dry powder inhaler (8 sources) Anticholinergic Start: 01-20-2019 take 1 puff(s) by inhalation once daily Umeclidinium Jefferson (INCRUSE ELLIPTA) 62.5 MCG/INH AEPB 1 puff inhaled daily 90 each 1 01/20/2019 Active Start: 09-23-2018 take 1 puff(s) by in halation once daily Umeclidinium Jefferson (INCRUSE ELLIPTA) 62.5 MCG/INH AEPB 1 puff inhaled daily 1 each 0 09/23/2018 Active vancomycin (VANCOCIN) 1,250 mg in sodium chloride 0.9 % 250 mL IVPB (2 sources) Start: 06-29-2022 vancomycin (VA NCOCIN) 1,250 mg in sodium chloride 0.9 % 250 mL IVPB Start: 06-27-2022 End: 06-29-2022 vancomycin (VANCOCIN) 1,250 mg in sodium chloride 0.9 % 250 mL IVPB vancomycin (VANCOCIN) intermittent dosing (placeholder) (2 sources) Start: 06-26-2022 vancomycin (VA NCOCIN) intermittent dosing (placeholder) Start: 03-20-2020 vancomycin (VA NCOCIN) intermittent dosing (placeholder) vitamin b12 1 mg oral tablet (20 sources) Vitamin B12 Start: 08-11-2022 take 1 tablet by mouth once daily cyanocobalamin 1000 mcg Tab 1,000 mcg = 1 tab(s), Oral, Daily, # 30 tab(s), Refills(s) 0, Pharmacy: [id number], 175.3, cm, 08/09/22 15:05:00 EDT, Height/Length Dosing, 96, kg, 08/09/22 15:05:00 EDT, Weight Dosing Start Date: 08/11/22 Status: Ordered Start: 08-11-2022 take 1000 ug by mout h once daily 1,000 mcg, Oral, DAILY, First dose on Sat07/03/23 at 1815, Until Discontinued Completed/Discontinued Medications Medication Drug Class(es) Dates Sig (Normalized) Sig (Original) albuterol 0.833 mg/ml / ipratropium bromide 0.167 mg/ml inhalation solution (20 sources) Anticholinergic, beta2-Adrenergic Agonist Start: 04-04-2022 take 1 dose by inhalation every four hours as needed 1 Dose, Inhalation, EVERY 4 HOURS PRN, Starting on Sat07/03/23 at 1750, Until Discontinued, Shortness of Breath Initiate RT Bronchodilator Protocol: No Start: 09-23-2018 take 3 mL by inhalat ion every four hours as needed ipratropium-albuterol (DUONEB) 0.5-2.5 (3) MG/3ML SOLN nebulizer solution Inhale 3 mLs into the lungs every 4 hours as needed for Shortness of Breath 360 mL 0 10/21/2018 Active amitriptyline hydrochloride 25 mg oral tablet (20 sources) Tricyclic Antidepressant Start: 10-02-2022 take 25 mg by mouth once daily 25 mg, Oral, NIGHTLY, First dose on Sat07/03/23 at 2100, Until Discontinued Start: 09-25-2021 take 1 tablet by yadira th once daily amitriptyline (ELAVIL) 25 MG tablet TAKE 1 TABLET BY MOUTH NIGHTLY 90 tablet 5 09/25/2021 Active Start: 03-31-2021 take 1 tablet by yadira th once daily amitriptyline (ELAVIL) 25 MG tablet TAKE 1 TABLET BY MOUTH NIGHTLY 90 tablet 1 03/31/2021 Active Start: 09-07-2020 take 1 tablet by yadira th once daily amitriptyline (ELAVIL) 25 MG tablet TAKE 1 TABLET BY MOUTH NIGHTLY 90 tablet 1 09/07/2020 Active Start: 04-13-2020 take 1 tablet by yadira th once daily amitriptyline (ELAVIL) 25 MG tablet Take 1 tablet by mouth nightly 90 tablet 1 04/13/2020 Active Start: 08-17-2019 take 25 mg by mouth once daily 25 mg, Oral, NIGHTLY, First dose on 03/20/20 at 2100 Start: 01-20-2019 take 1 tablet by yadira th once daily amitriptyline (ELAVIL) 25 MG tablet Take 1 tablet by mouth nightly 90 tablet 1 01/20/2019 Active Start: 09-23-2018 take 1 tablet by yadira th once daily amitriptyline (ELAVIL) 25 MG tablet Take 1 tablet by mouth nightly 30 tablet 0 09/23/2018 Active ampicillin-sulbactam (UNASYN) 3,000 mg in sodium chloride 0.9 % 100 mL IVPB (mini-bag) (1 source) Start: 06-21-2022 End: 06-21-2022 ampicillin-sulbactam (UNASYN) 3,000 mg in sodium chloride 0.9 % 100 mL IVPB (mini-bag) aspirin 81 mg delayed release oral tablet (15 sources) Platelet Aggregation Inhibitor, Nonsteroidal Anti-inflammator y Drug Start: 01-06-2023 take 81 mg by mouth once daily 81 mg, Oral, DAILY, First dose on Sat07/03/23 at 1815, Until Discontinued Do not crush or break. Start: 03-20-2020 take 81 mg by mouth once daily 81 mg, Oral, DAILY, First dose on 03/20/20 at 0900 take 1 tablet by mouth once miko y aspirin 81 MG tablet Take 81 mg by mouth daily 0 Active atorvastatin 40 mg oral tablet (20 sources) HMG-CoA Reductase Inhibitor Start: 10-02-2022 take 40 mg by mouth once daily 40 mg, Oral, DAILY, First dose on Sat07/03/23 at 1815, Until Discontinued Start: 04-30-2022 take 1 tablet by yadira th once daily atorvastatin (LIPITOR) 40 MG tablet TAKE 1 TABLET BY MOUTH EVERY DAY. 90 tablet 1 04/30/2022 Active Start: 11-17-2021 take 1 tablet by yadira th once daily atorvastatin (LIPITOR) 40 MG tablet Take 1 tablet by mouth daily 90 tablet 1 11/17/2021 Active Start: 11-15-2020 take 1 tablet by yadira th once daily atorvastatin (LIPITOR) 40 MG tablet Take 1 tablet by mouth daily 90 tablet 1 11/15/2020 Active Start: 04-13-2020 take 1 tablet by yadira th once daily atorvastatin (LIPITOR) 40 MG tablet Take 1 tablet by mouth daily 90 tablet 1 04/13/2020 Active Start: 04-21-2019 take 40 mg by mouth once daily 40 mg, Oral, DAILY, First dose on 03/20/20 at 0900 Start: 01-20-2019 take 1 tablet by yadira th once daily atorvastatin (LIPITOR) 40 MG tablet Take 1 tablet by mouth daily 90 tablet 1 01/20/2019 Active Start: 09-23-2018 take 1 tablet by yadira th once daily atorvastatin (LIPITOR) 40 MG tablet Take 1 tablet by mouth daily 30 tablet 0 09/23/2018 Active 24 hr buPROPion hydrochloride 150 mg extended release oral tablet (20 sources) Aminoketone Start: 10-02-2022 take 150 mg by mouth once daily in the morning 150 mg, Oral, EVERY MORNING, First dose on Elenita 07/04/23 at 0900, Until Discontinued Do not crush or break. Start: 04-30-2022 take 1 tablet by yadira th once daily in the morning buPROPion (WELLBUTRIN XL) 150 MG extended release tablet TAKE 1 TABLET BY MOUTH EVERY DAY IN THE MORNING. 30 tablet 5 04/30/2022 Active Start: 11-17-2021 take 1 tablet by yadira th once daily in the morning buPROPion (WELLBUTRIN XL) 150 MG extended release tablet Take 1 tablet by mouth every morning 30 tablet 5 11/17/2021 Active Start: 11-15-2020 take 1 tablet by yadira th once daily in the morning buPROPion (WELLBUTRIN XL) 150 MG extended release tablet Take 1 tablet by mouth every morning 30 tablet 5 11/15/2020 Active cefepime (MAXIPIME) 2,000 mg in sterile water 20 mL IV syringe (1 source) Start: 06-26-2022 End: 06-27-2022 cefepime (MAXIPIME) 2,000 mg in sterile water 20 mL IV syringe cholecalciferol 0.025 mg oral tablet (20 sources) Vitamin D Start: 05-21-2023 take 1000 [IU] by mouth once daily 1,000 Units, Oral, DAILY, First dose on Sat07/03/23 at 1815, Until Discontinued Start: 08-11-2022 take 1 tablet by yadira th once daily cholecalciferol 1000 intl units (25 mcg) oral tablet 25 mcg = 1 tab(s), Oral, Daily, # 30 tab(s), Refills(s) 0, Pharmacy: [id number], 175.3, cm, 08/09/22 15:05:00 EDT, Height/Length Dosing, 96, kg, 08/09/22 15:05:00 EDT, Weight Dosing Start Date: 08/11/22 Status: Ordered Start: 08-11-2022 take 1 tablet by yadira th once daily cholecalciferol 1000 intl units (25 mcg) oral tablet 25 mcg = 1 tab(s), Oral, Daily, # 30 tab(s), Refills(s) 0, Pharmacy: [id number], 175.3, cm, 08/09/22 15:05:00 EDT, Height/Length Dosing, 96, kg, 08/09/22 15:05:00 EDT, Weight Dosing Start Date: 08/11/22 Status: Ordered cyclobenzaprine hydrochloride 10 mg oral tablet (20 sources) Muscle Relaxant Start: 07-03-2023 take 5 mg by mouth twice daily as needed 5 mg, Oral, 2 TIMES DAILY PRN, Starting on Sat07/03/23 at 1750, Until Discontinued, Muscle spasms Start: 05-21-2023 take 1 tablet by yadira th twice daily as needed for muscle spasms cyclobenzaprine (FLEXERIL) 5 MG tablet Take 1 tablet by mouth 2 times daily as needed for Muscle spasms 60 tablet 2 05/21/2023 Active Start: 01-19-2012 take 1 tablet by yadira th three times daily Flexeril 10 mg Tab 10 mg = 1 tab(s), Oral, TID, Take one by mouth three times a day, # 21 tab(s), Refills(s) 0 Start Date: 01/19/12 Status: Ordered DULoxetine 30 mg delayed release oral capsule (20 sources) Serotonin and Norepinephrine Reuptake Inhibitor Start: 07-03-2023 take 1 capsule by mouth once daily 60 mg, Oral, DAILY, First dose on Sat07/03/23 at 1815, Until Discontinued Do not crush or break. May add contents of capsule to apple juice or apple sauce, but not chocolate. Start: 10-02-2022 take 1 capsule by mo uth once daily, then take 1 capsule by mouth once daily DULoxetine (CYMBALTA) 60 MG extended release capsule Take 1 capsule by mouth daily TAKE 1 CAPSULE BY MOUTH EVERY DAY. 90 capsule 1 05/21/2023 Active Start: 06-26-2022 take 1 capsule by mo uth once daily 60 mg, Oral, DAILY, First dose on Sat06/26/22 at 1830, Until Discontinued Do not crush or break. May add contents of capsule to apple juice or apple sauce, but not chocolate. Start: 04-30-2022 take 1 capsule by mo uth once daily DULoxetine (CYMBALTA) 60 MG extended release capsule TAKE 1 CAPSULE BY MOUTH EVERY DAY. 90 capsule 1 04/30/2022 Active Start: 11-17-2021 take 1 capsule by mo uth once daily DULoxetine (CYMBALTA) 60 MG extended release capsule TAKE 1 CAPSULE BY MOUTH EVERY DAY 90 capsule 1 11/17/2021 Active Start: 04-10-2021 take 1 capsule by mo uth once daily DULoxetine (CYMBALTA) 60 MG extended release capsule TAKE 1 CAPSULE BY MOUTH EVERY DAY 90 capsule 1 04/10/2021 Active Start: 10-10-2020 take 1 capsule by mo uth once daily DULoxetine (CYMBALTA) 60 MG extended release capsule TAKE 1 CAPSULE BY MOUTH EVERY DAY 90 capsule 1 10/10/2020 Active Start: 04-13-2020 take 1 capsule by mo uth once daily DULoxetine (CYMBALTA) 60 MG extended release capsule 1 by mouth daily 90 capsule 1 04/13/2020 Active Start: 03-20-2020 take 1 capsule by mo uth once daily 60 mg, Oral, DAILY, First dose on Sat03/20/20 at 0900 Do not crush or break. May add contents of capsule to apple juice or apple sauce, but not chocolate. Start: 04-21-2019 take 1 capsule by mo ut once daily DULoxetine (CYMBALTA) 60 MG extended release capsule Take 1 capsule by mouth daily 90 capsule 1 04/21/2019 Active Start: 01-20-2019 take 1 capsule by mo uth once daily DULoxetine (CYMBALTA) 60 MG extended release capsule Take 1 capsule by mouth daily 90 capsule 1 01/20/2019 Active Start: 09-23-2018 take 1 capsule by mo uth once daily DULoxetine (CYMBALTA) 60 MG extended release capsule Take 1 capsule by mouth daily 30 capsule 0 09/23/2018 Active 0.4 ml enoxaparin sodium 100 mg/ml prefilled syringe (4 sources) Low Molecular Weight Heparin Start: 07-03-2023 inject 40 mg by subcutaneous injection once daily 40 mg, SubCUTAneous, DAILY, First dose on Sat07/03/23 at 1815, Until Discontinued Indication of Use: Prophylaxis-DVT/PE Administer by deep subCUTAneous injection with pt lying down. Alternate injection sites on abdominal wall. Do not rub site after injection. Check with provider prior to any invasive procedure. Start: 06-26-2022 inject 40 mg by subc utaneous injection once daily 40 mg, SubCUTAneous, DAILY, First dose on Sat06/26/22 at 1830, Until Discontinued Indication of Use: Prophylaxis-DVT/PE Administer by deep subCUTAneous injection with pt lying down. Alternate injection sites on abdominal wall. Do not rub site after injection. Check with provider prior to any invasive procedure. Start: 03-26-2020 enoxaparin (LO VENOX) injection 40 mg Start: 03-20-2020 End: 03-23-2020 inject 40 mg by subcutaneous injection once daily 40 mg, Subcutaneous, DAILY, First dose on Sat03/20/20 at 0900 60 actuat formoterol fumarate 0.005 mg/actuat / mometasone furoate 0.2 mg/actuat metered dose inhaler (2 sources) Corticosteroid, beta2-Adrenergic Agonist Start: 07-03-2023 take 2 puff(s) by inhalation twice daily 2 puff, Inhalation, 2 TIMES DAILY RESP, First dose on Sat07/03/23 at 2000, Until Discontinued Substituted for Budesonide-Formoterol (SYMBICORT). Start: 06-26-2022 take 2 puff(s) by in halation twice daily 2 puff,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 foot] Spondylosis; intervertebral disc disorders; other back problems (1 source) Chronic low back pain; Translations: [Chronic midline low back pain without sciatica] Episodic Transient cerebral ischemia (1 source) Transient cerebral ischemic attack, unspecified; Translations: [Transient cerebral ischemic attack, unspecified] Onset: 3 Chronic Past or Other Problems Problem Classification Problem Date Documented Date Episodic/Chronic Cardiac dysrhythmias (20 sources) Atrial fibrillation with rapid ventricular response; Translations: [Unspecified atrial fibrillation] Onset: 05-26-2016 Resolved: 09-23-2018 09-23-2018 Chronic Deficiency and other anemia (1 source) Iron deficiency anemia, unspecified; Translations: [Iron deficiency anemia, unspecified] Onset: 08-28-2022 Episodic Infective arthritis and osteomyelitis (except that caused by tuberculosis or sexually transmitted disease) (6 sources) Osteomyelitis of forefoot; Translations: [Osteomyelitis, unspecified] Onset: 06-26-2022 Resolved: 11-09-2022 Chronic Other nervous system disorders (1 source) Slurred speech; Translations: [Slurred speech] Onset: 01-17-2023 Episodic Other nutritional; endocrine; and metabolic disorders (1 source) Polydipsia; Translations: [Polydipsia] Onset: 02-13-2023 Episodic Other screening for suspected conditions (not mental disorders or infectious disease) (2 sources) Encounter for screening for malignant neoplasm of prostate; Translations: [Other specified abnormal findings of blood chemistry] Onset: 01-17-2023 Episodic Skin and subcutaneous tissue infections (20 sources) Cellulitis of foot; Translations: [Paronychia of toe of left foot] Onset: 03-20-2020 Resolved: 04-17-2020 04-17-2020 Episodic Unclassified (2 sources) Onset: 03-19-2023 03-19-2023 Results Test Name Value Interpretation Reference Range Facility Consent for Treatmenton 08-09 Consent for Treatment [id number] #1.00TIFF [facility] Physician Orderon 07-31-2023 Physician Order [id number] #1.00TIFF [facility] Cult, Bloodon 07-09-2023 Cult, Blood Specimen Description .BLOOD Special Requests 20ML LAC Culture NO GROWTH 6 DAYS Report Status FINAL 07/09/2023 [facility] Comment on above: Performed By: #### B CUL2 #### [facility] [address] [place] [address] [employer] Supervisor: Anibal Marquis MD Cult,Bloodon 07-09-2023 Cult,Blood Specimen Description .BLOOD Special Requests 10ML RFA Culture NO GROWTH 6 DAYS Report Status FINAL 07/09/2023 [facility] Comment on above: Performed By: #### B C #### [facility] [address] [place] [address] [employer] Supervisor: Anibal [facility]quis [facility],Wound Specimen Description .FOOT Direct Exam NO NEUTROPHILS SEEN NO BACTERIA SEEN Culture STAPHYLOCOCCUS AUREUS MODERATE GROWTH This isolate is methicillin susceptible. NORMAL SKIN VIRGEN Report Status FINAL 07/06/2023 SUSCEPTIBILITY Organism SAUR MSSA Method LANDY Clindamycin >=8 RESISTANT Erythromycin >=8 RESISTANT Gentamicin <=0.5 SUSCEPTIBLE Gentamicin is used only in combination with other active agents that test susceptible. Induced Clind Resist NEGATIVE Levofloxacin 0.25 SUSCEPTIBLE Oxacillin 0.5 SUSCEPTIBLE This staph isolate may be susceptible to Penicillin. Please contact Microbiology for confirmatory testing of susceptibility if Pencillin is a therapeutic consideration. Tetracycline <=1 SUSCEPTIBLE Trimethoprim/Sulfa <=10 SUSCEPTIBLE Susceptible [facility] Comment on above: Performed By: #### C DP, BMPX #### [facility] [address] [place] [address] [employer] Supervisor: Anibal Marquis [facility] Cult,Wound Specimen Description .FOOT Direct Exam NO NEUTROPHILS NO ORGANISMS SEEN Culture STAPHYLOCOCCUS AUREUS HEAVY GROWTH This isolate is methicillin susceptible. Report Status FINAL 07/05/2023 SUSCEPTIBILITY Organism SAUR MSSA Method LANDY Clindamycin >=8 RESISTANT Erythromycin >=8 RESISTANT Gentamicin <=0.5 SUSCEPTIBLE Gentamicin is used only in combination with other active agents that test susceptible. Induced Clind Resist NEGATIVE Levofloxacin 0.25 SUSCEPTIBLE Oxacillin <=0.25 SUSCEPTIBLE This staph isolate may be susceptible to Penicillin. Please contact Microbiology for confirmatory testing of susceptibility if Pencillin is a therapeutic consideration. Tetracycline <=1 SUSCEPTIBLE Trimethoprim/Sulfa <=10 SUSCEPTIBLE Susceptible [facility] Comment on above: Performed By: #### W DC #### [facility] [address] [place] [address] [employer] Supervisor: Tai Albarran MD [facility] [address] [facility] [place] [address] [employer] Supervisor: Anibal Marquis MD Culture, [facility] 07-05-2023 Interpretation and review of laboratory results Abnormal [facility] Microorganism identified Cx Nom (Unsp spec) STAPHYLOCOCCUS AUREUS HEAVY GROWTH This isolate is methicillin susceptible. Abnormal [facility] Microorganism or agent identified Nom (Unsp spec) NO NEUTROPHILS [facility] Microorganism or agent identified Nom (Unsp spec) NO ORGANISMS SEEN [facility] Specimen Description .FOOT [facility] Glucose, Whole Bloodon 07-04 Glucose [Mass/Vol] 114 mg/dL High 65 - 99 mg/dL [facility] Interpretation and review of laboratory results Abnormal [facility] Glucose [Mass/Vol] 209 mg/dL High 65 - 99 mg/dL [facility] Interpretation and review of laboratory results Abnormal [facility] Glucose,Whole Bloodon 2023 Glucose [Mass/Vol] 114 mg/dL High 65-99 [facility] Glucose [Mass/Vol] 209 mg/dL High 65-99 [facility] Basic Metab w/rfx MGon 07-03 Anion gap [Moles/Vol] 12 mmol/L Normal 9-17 [facility] Comment on above: Performed By: #### C DP, BMPX #### [facility] [address] [place], [place] [id number] [employer] Supervisor: Anibal Marquis MD BUN/CRE Ratio 9 Normal 9-20 [facility] Comment on above: Performed By: #### C DP, BMPX #### [facility] [address] [place], [place] [id number] [employer] Supervisor: Anibal Marquis MD Calcium [Mass/Vol] 8.9 mg/dL Normal 8.6-10.4 [facility] Comment on above: Performed By: #### C DP, BMPX #### [facility] [address] [place], [place] [id number] [employer] Supervisor: Anibal Marquis MD Chloride [Moles/Vol] 103 mmol/L Normal 98-107 [facility] Comment on above: Performed By: #### C DP, BMPX #### [facility] [address] [place], [place] [id number] [employer] Supervisor: Anibal Marquis MD CO2 [Moles/Vol] 22 mmol/L Normal 20-31 [facility] Comment on above: Performed By: #### C DP, BMPX #### [facility] [address] [place] [address] [employer] Supervisor: Anibal Marquis MD Creatinine [Mass/Vol] 1.2 mg/dL Normal 0.7-1.2 [facility] Comment on above: Performed By: #### C DP, BMPX #### [facility] [address] [place], [place] [id number] [employer] Supervisor: Anibal Marquis MD GFR/1.73 sq M.predicted among non-blacks MDRD (S/P/Bld) [Vol rate/Area] 68 mL/min/{1.73_m2} Normal >60 [facility] Comment on above: Result Comment: These results are not intended for use in patients <18 years of age. eGFR results are calculated without a race factor using the 2020 CKD-EPI equation. Careful clinical correlation is recommended, particularly when comparing to results calculated using previous equations. The CKD-EPI equation is less accurate in patients with extremes of muscle mass, extra-renal metabolism of creatine, excessive creatine ingestion, or following therapy that affects renal tubular secretion. Performed By: #### C DP, BMPX #### [facility] [address] [place], [place] [id number] [employer] Supervisor: Anibal Marquis MD Glucose [Mass/Vol] 236 mg/dL High 70-99 [facility] Comment on above: Performed By: #### C DP, BMPX #### [facility] [address] [place], [place] [id number] [employer] Supervisor: Anibal Marquis MD Potassium [Moles/Vol] 4.4 mmol/L Normal 3.7-5.3 [facility] Comment on above: Performed By: #### C DP, BMPX #### [facility] [address] [place] [address] [employer] Supervisor: Anibal Marquis MD Sodium [Moles/Vol] 137 mmol/L Normal 135-144 [facility] Comment on above: Performed By: #### C DP, BMPX #### [facility] [address] [place] [address] [employer] Supervisor: Anibal Marquis MD Urea nitrogen [Mass/Vol] 11 mg/dL Normal 8-23 [facility] Comment on above: Performed By: #### C DP, BMPX #### [facility] [address] [place] [address] [employer] Supervisor: Anibal Marquis MD Basic Metabolic Panel w/ Ref belle to MG 07-04-2023 Anion gap [Moles/Vol] 12 mmol/L 9 - 17 mmol/L [facility] Calcium [Mass/Vol] 8.9 mg/dL 8.6 - 10. 4 mg/dL [facility] Chloride [Moles/Vol] 103 mmol/L 98 - 10 7 mmol/L [facility] CO2 [Moles/Vol] 22 mmol/L 20 - 31 mmol/L [facility] Creatinine [Mass/Vol] 1.2 mg/dL 0.7 - 1.2 mg/dL [facility] GFR/1.73 sq M.predicted MDRD (S/P/Bld) [Vol rate/Area] 68 mL/min/{1.73_m2} - PINF [facility] Comment on above: These results are not intended for use in patients <18 years of age. eGFR results are calculated without a race factor using the 2020 CKD-EPI equation. Careful clinical correlation is recommended, particularly when comparing to results calculated using previous equations. The CKD-EPI equation is less accurate in patients with extremes of muscle mass, extra-renal metabolism of creatine, excessive creatine ingestion, or following therapy that affects renal tubular secretion. Glucose [Mass/Vol] 236 mg/dL High 70 - 99 mg/dL [facility] Interpretation and review of laboratory results Abnormal [facility] Potassium [Moles/Vol] 4.4 mmol/L 3.7 - 5.3 mmol/L [facility] Sodium [Moles/Vol] 137 mmol/L 135 - 144 mmol/L [facility] Urea nitrogen [Mass/Vol] 11 mg/dL 8 - 23 mg/dL [facility] Urea nitrogen/Creatinine [Mass ratio] 9 mg/mg 9 - 20 [facility] CBC with Auto Differentialon 07-04-2023 Basophils (Bld) [#/Vol] 0.03 10*3/uL [facility] Basophils/100 WBC (Bld) 1 % 0 - 2 % B ON [facility] Eosinophils (Bld) [#/Vol] 0.18 10*3/uL [facility] Eosinophils/100 WBC (Bld) 3 % 0 - 5 % [facility] Erythrocyte distribution width (RBC) [Ratio] 13.8 % 12.1 - 15.2 % [facility] Hematocrit (Bld) [Volume fraction] 30.2 % Low 41.0 - 53.0 % [facility] Hemoglobin (Bld) [Mass/Vol] 10.3 g/dL Low 13.5 - 17.5 g/dL [facility] Immature granulocytes (Bld) [#/Vol] 0.01 10*3/uL [facility] Immature granulocytes/100 WBC (Bld) 0 % 0 - 5 % [facility] Interpretation and review of laboratory results Abnormal [facility] Lymphocytes/100 WBC (Bld) 37 % 13 - 44 % [facility] Lymphocytes/100 WBC (Bld) 2.14 % [facility] MCH (RBC) [Entitic mass] 31.8 pg 26. 0 - 34.0 pg [facility] MCHC (RBC) [Mass/Vol] 34.1 g/dL 31.0 - 37.0 g/dL [facility] MCV (RBC) [Entitic vol] 93.2 fL 80.0 - 100.0 fL [facility] Monocytes/100 WBC (Bld) 7 % 5 - 9 % B ON [facility] Monocytes/100 WBC (Bld) 0.38 % B ON [facility] Neutrophils/100 WBC (Bld) 52 % 39 - 75 % [facility] Platelet mean volume (Bld) [Entitic vol] 9.6 fL 6.0 - 12.0 fL [facility] Platelets (Bld) [#/Vol] 194 10*3/uL [facility] RBC (Bld) [#/Vol] 3.24 10*6/uL Low 4.50 - 5.9 0 m/uL [facility] Segmented neutrophils/100 WBC (Bld) 3.09 % [facility] WBC other (Bld) [#/Vol] 5.8 B ON [facility] CBC with Diffon 07-04-2023 Abs. Basophil 0.03 k/uL Normal 0.00-0.20 [facility] Comment on above: Performed By: #### C DP, BMPX #### [facility] [address] [place] [address] [employer] Supervisor: Anibal Marquis MD Abs.Imm.Granulocyte 0.01 k/uL Normal 0.00-0.30 [facility] Comment on above: Performed By: #### C DP, BMPX #### [facility] [address] [place] [address] [employer] Supervisor: Ainbal Marquis MD Abs.Neutrophil (Seg) 3.09 k/uL Normal 2.1-6.5 [facility] Comment on above: Performed By: #### C DP, BMPX #### [facility] [address] [place] [address] [employer] Supervisor: Anibal Marquis MD Basophils/100 WBC (Bld) 1 % Normal 0-2 M [facility] Comment on above: Performed By: #### C DP, BMPX #### [facility] [address] [place] [address] [employer] Supervisor: Anibal Marquis MD Eosinophils (Bld) [#/Vol] 0.18 10*3/uL Normal 0.00-0.40 [facility] Comment on above: Performed By: #### C DP, BMPX #### [facility] [address] [place], [place] [id number] [employer] Supervisor: Anibal Marquis MD Eosinophils/100 WBC (Bld) 3 % Normal 0-5 [facility] Comment on above: Performed By: #### C DP, BMPX #### [facility] [address] [place] [phone] [employer] Supervisor: Anibal Marquis MD Erythrocyte distribution width (RBC) [Ratio] 13.8 % Normal 12.1-15.2 [facility] Comment on above: Performed By: #### C DP, BMPX #### [facility] [address] [place] [address] [employer] Supervisor: Anibal Marquis MD Hematocrit (Bld) [Volume fraction] 30.2 % Low 41.0-53.0 [facility] Comment on above: Performed By: #### C DP, BMPX #### [facility] [address] [place] [phone] [employer] Supervisor: Anibal Marquis MD Hemoglobin (Bld) [Mass/Vol] 10.3 g/dL Low 13.5-17.5 [facility] Comment on above: Performed By: #### C DP, BMPX #### [facility] [address] [place] [phone] [employer] Supervisor: Anibal Marquis MD Immature granulocytes/100 WBC (Bld) 0 % Normal 0-5 [facility] Comment on above: Performed By: #### C DP, BMPX #### [facility] [address] [place] [phone] [employer] Supervisor: Anibal Marquis MD Lymphocytes (Bld) [#/Vol] 2.14 10*3/uL Normal 1.00-4.80 [facility] Comment on above: Performed By: #### C DP, BMPX #### [facility] [address] [place] [address] [employer] Supervisor: Anibal Marquis MD Lymphocytes/100 WBC (Bld) 37 % Normal 13-44 [facility] Comment on above: Performed By: #### C DP, BMPX #### [facility] [address] [place] [address] [employer] Supervisor: Anibal Marquis MD MCH (RBC) [Entitic mass] 31.8 pg Normal 26.0-34.0 [facility] Comment on above: Performed By: #### C DP, BMPX #### [facility] [address] [place] [address] [employer] Supervisor: Anibal Marquis MD MCHC (RBC) [Mass/Vol] 34.1 g/dL Normal 31.0-37.0 [facility] Comment on above: Performed By: #### C DP, BMPX #### [facility] [address] [place] [phone] [employer] Supervisor: Anibal Marquis MD MCV (RBC) [Entitic vol] 93.2 fL Normal 80.0-100.0 [facility] Comment on above: Performed By: #### C DP, BMPX #### [facility] [address] [place] [address] [employer] Supervisor: Anibal Marquis MD Monocytes (Bld) [#/Vol] 0.38 10*3/uL Normal 0.00-1.00 [facility] Comment on above: Performed By: #### C DP, BMPX #### [facility] [address] [place] [address] [employer] Supervisor: Anibal Marquis MD Monocytes/100 WBC (Bld) 7 % Normal 5-9 M [facility] Comment on above: Performed By: #### C DP, BMPX #### [facility] [address] [place] [address] [employer] Supervisor: Anibal Marquis MD Neutrophil (Seg) 52 % Normal 39-75 [facility] Comment on above: Performed By: #### C DP, BMPX #### [facility] [address] [place] [address] [employer] Supervisor: Anibal Marquis MD Platelet mean volume (Bld) [Entitic vol] 9.6 fL Normal 6.0-12.0 [facility] Comment on above: Performed By: #### C DP, BMPX #### [facility] [address] [place] [address] [employer] Supervisor: Anibal Marquis MD Platelets (Bld) [#/Vol] 194 10*3/uL Normal 140-450 [facility] Comment on above: Performed By: #### C DP, BMPX #### [facility] [address] [place] [address] [employer] Supervisor: Anibal Marquis MD RBC (Bld) [#/Vol] 3.24 10*6/uL Low 4.50-5.90 [facility] Comment on above: Performed By: #### C DP, BMPX #### [facility] [address] [place] [address] [employer] Supervisor: Anibal Marquis MD WBC (Bld) [#/Vol] 5.8 10*3/uL Normal 3.5-11.0 [facility] Comment on above: Performed By: #### C DP, BMPX #### [facility] [address] [place] [address] [employer] Supervisor: Anibal Marquis MD Glucose, Whole Bloodon 07-03 Glucose [Mass/Vol] 241 mg/dL High 65 - 99 mg/dL [facility] Interpretation and review of laboratory results Abnormal [facility] Glucose [Mass/Vol] 241 mg/dL High 65 - 99 mg/dL [facility] Interpretation and review of laboratory results Abnormal [facility] Glucose [Mass/Vol] 73 mg/dL 65 - 99 mg/dL [facility] Glucose [Mass/Vol] 171 mg/dL High 65 - 99 mg/dL [facility] Interpretation and review of laboratory results Abnormal [facility] Glucose,Whole Bloodon 2023 Glucose [Mass/Vol] 241 mg/dL High 65-99 [facility] Glucose [Mass/Vol] 241 mg/dL High 65-99 [facility] Glucose [Mass/Vol] 73 mg/dL Normal 65-99 [facility] Glucose [Mass/Vol] 171 mg/dL High 65-99 [facility] Hemoglobin A1Con 07-04-2023 Glucose [Mass/Vol] 258 mg/dL Normal [facility] Comment on above: Result Comment: The ADA and AACC recommend providing the estimated average glucose result to permit better patient understanding of their HBA1c result. Performed By: #### B C #### [facility] [address] [place] [address] [employer] Supervisor: Anibal Marquis MD HbA1c (Bld) [Mass fraction] 10.6 % High 4.0-6.0 [facility] Comment on above: Performed By: #### B C #### [facility] [address] [place] [address] [employer] Supervisor: Anibal Marquis MD Hemoglobin A1con 07-04-2023 Average glucose Estimated from glycated hemoglobin (Bld) [Mass/Vol] 258 mg/dL [facility] Comment on above: The ADA and AACC rec ommend providing the estimated average glucose result to permit better patient understanding of their HBA1c result. HbA1c (Bld) [Mass fraction] 10.6 % High 4.0 - 6.0 % [facility] Interpretation and review of laboratory results Abnormal [facility] CBC with Auto Differentialon 07-03-2023 Basophils (Bld) [#/Vol] 0.03 10*3/uL [facility] Basophils/100 WBC (Bld) 1 % 0 - 2 % B ON [facility] Eosinophils (Bld) [#/Vol] 0.13 10*3/uL [facility] Eosinophils/100 WBC (Bld) 2 % 0 - 5 % [facility] Erythrocyte distribution width (RBC) [Ratio] 13.6 % 12.1 - 15.2 % [facility] Hematocrit (Bld) [Volume fraction] 32.2 % Low 41.0 - 53.0 % [facility] Hemoglobin (Bld) [Mass/Vol] 10.8 g/dL Low 13.5 - 17.5 g/dL [facility] Immature granulocytes (Bld) [#/Vol] 0.02 10*3/uL [facility] Immature granulocytes/100 WBC (Bld) 0 % 0 - 5 % [facility] Interpretation and review of laboratory results Abnormal [facility] Lymphocytes/100 WBC (Bld) 26 % 13 - 44 % [facility] Lymphocytes/100 WBC (Bld) 1.57 % [facility] MCH (RBC) [Entitic mass] 30.6 pg 26. 0 - 34.0 pg [facility] MCHC (RBC) [Mass/Vol] 33.5 g/dL 31.0 - 37.0 g/dL [facility] MCV (RBC) [Entitic vol] 91.2 fL 80.0 - 100.0 fL [facility] Monocytes/100 WBC (Bld) 6 % 5 - 9 % B ON [facility] Monocytes/100 WBC (Bld) 0.35 % B ON [facility] Neutrophils/100 WBC (Bld) 65 % 39 - 75 % [facility] Platelet mean volume (Bld) [Entitic vol] 9.9 fL 6.0 - 12.0 fL [facility] Platelets (Bld) [#/Vol] 203 10*3/uL [facility] RBC (Bld) [#/Vol] 3.53 10*6/uL Low 4.50 - 5.9 0 m/uL [facility] Segmented neutrophils/100 WBC (Bld) 3.88 % [facility] WBC other (Bld) [#/Vol] 6.0 B ON [facility] CBC with Diffon 07-03-2023 Abs. Basophil 0.03 k/uL Normal 0.00-0.20 [facility] Comment on above: Performed By: #### C DP, CP #### [facility] [address] [place] [address] [employer] Supervisor: Anibal Marquis MD Abs.Imm.Granulocyte 0.02 k/uL Normal 0.00-0.30 [facility] Comment on above: Performed By: #### C DP, CP #### [facility] [address] [place] [address] [employer] Supervisor: Anibal Marquis MD Abs.Neutrophil (Seg) 3.88 k/uL Normal 2.1-6.5 [facility] Comment on above: Performed By: #### C DP, CP #### [facility] [address] [place] [id number] [employer] Supervisor: Anibal Marquis MD Basophils/100 WBC (Bld) 1 % Normal 0-2 [facility] Comment on above: Performed By: #### C DP, CP #### [facility] [address] [place] [address] [employer] Supervisor: Anibal Marquis MD Eosinophils (Bld) [#/Vol] 0.13 10*3/uL Normal 0.00-0.40 [facility] Comment on above: Performed By: #### C DP, CP #### [facility] [address] [place] [address] [employer] Supervisor: Anibal Marquis MD Eosinophils/100 WBC (Bld) 2 % Normal 0-5 [facility] Comment on above: Performed By: #### C DP, CP #### [facility] [address] [place] [id number] [employer] Supervisor: Anibal Marquis MD Erythrocyte distribution width (RBC) [Ratio] 13.6 % Normal 12.1-15.2 [facility] Comment on above: Performed By: #### C DP, CP #### [facility] [address] [place] [address] [employer] Supervisor: Anibal Marquis MD Hematocrit (Bld) [Volume fraction] 32.2 % Low 41.0-53.0 [facility] Comment on above: Performed By: #### C DP, CP #### [facility] [address] [place] [address] [employer] Supervisor: Anibal Marquis MD Hemoglobin (Bld) [Mass/Vol] 10.8 g/dL Low 13.5-17.5 [facility] Comment on above: Performed By: #### C DP, CP #### [facility] [address] [place] [address] [employer] Supervisor: Anibal Marquis MD Immature granulocytes/100 WBC (Bld) 0 % Normal 0-5 [facility] Comment on above: Performed By: #### C DP, CP #### [facility] [address] [place] [address] [employer] Supervisor: Anibal Marqius MD Lymphocytes (Bld) [#/Vol] 1.57 10*3/uL Normal 1.00-4.80 [facility] Comment on above: Performed By: #### C DP, CP #### [facility] [address] [place] [address] [employer] Supervisor: Anibal Marquis MD Lymphocytes/100 WBC (Bld) 26 % Normal 13-44 [facility] Comment on above: Performed By: #### C DP, CP #### [facility] [address] [place] [address] [employer] Supervisor: Anibal Marquis MD MCH (RBC) [Entitic mass] 30.6 pg Normal 26.0-34.0 [facility] Comment on above: Performed By: #### C DP, CP #### [facility] [address] [place] [address] [employer] Supervisor: Anibal Marquis MD MCHC (RBC) [Mass/Vol] 33.5 g/dL Normal 31.0-37.0 [facility] Comment on above: Performed By: #### C DP, CP #### [facility] [address] [place] [address] [employer] Supervisor: Anibal Marquis MD MCV (RBC) [Entitic vol] 91.2 fL Normal 80.0-100.0 [facility] Comment on above: Performed By: #### C DP, CP #### [facility] [address] [place] [phone] [employer] Supervisor: Anibal Marquis MD Monocytes (Bld) [#/Vol] 0.35 10*3/uL Normal 0.00-1.00 [facility] Comment on above: Performed By: #### C DP, CP #### [facility] [address] [place] [address] [employer] Supervisor: Anibal Marquis MD Monocytes/100 WBC (Bld) 6 % Normal 5-9 M [facility] Comment on above: Performed By: #### C DP, CP #### [facility] [address] [place] [address] [employer] Supervisor: Anibal Marquis MD Neutrophil (Seg) 65 % Normal 39-75 [facility] Comment on above: Performed By: #### C DP, CP #### [facility] [address] [place] [address] [employer] Supervisor: Anibal Marquis MD Platelet mean volume (Bld) [Entitic vol] 9.9 fL Normal 6.0-12.0 [facility] Comment on above: Performed By: #### C DP, CP #### [facility] [address] [place], [place] [phone] [employer] Supervisor: Anibal Marquis MD Platelets (Bld) [#/Vol] 203 10*3/uL Normal 140-450 [facility] Comment on above: Performed By: #### C DP, CP #### [facility] [address] [place] [phone] [employer] Supervisor: Anibal Marquis MD RBC (Bld) [#/Vol] 3.53 10*6/uL Low 4.50-5.90 [facility] Comment on above: Performed By: #### C DP, CP #### [facility] [address] [place] [phone] [employer] Supervisor: Anibal Marquis MD WBC (Bld) [#/Vol] 6.0 10*3/uL Normal 3.5-11.0 [facility] Comment on above: Performed By: #### C DP, CP #### [facility] [address] [place] [address] [employer] Supervisor: Anibal Marquis MD [facility] 07-03-2023 Albumin [Mass/Vol] 4.2 g/dL 3.5 - 5.2 g/dL [facility] ALP [Catalytic activity/Vol] 138 U/L High 40 - 129 U/L [facility] ALT [Catalytic activity/Vol] 15 U/L 5 - 41 U/L [facility] Anion gap [Moles/Vol] 13 mmol/L 9 - 17 mmol/L [facility] AST [Catalytic activity/Vol] 16 U/L NINF - 40 U/L [facility] Bilirubin [Mass/Vol] 0.8 mg/dL 0.3 - 1 .2 mg/dL [facility] Calcium [Mass/Vol] 9.3 mg/dL 8.6 - 10. 4 mg/dL [facility] Chloride [Moles/Vol] 100 mmol/L 98 - 10 7 mmol/L [facility] CO2 [Moles/Vol] 25 mmol/L 20 - 31 mmol/L [facility] Creatinine [Mass/Vol] 1.2 mg/dL 0.7 - 1.2 mg/dL [facility] GFR/1.73 sq M.predicted MDRD (S/P/Bld) [Vol rate/Area] 68 mL/min/{1.73_m2} - PINF [facility] Comment on above: These results are not intended for use in patients <18 years of age. eGFR results are calculated without a race factor using the 2020 CKD-EPI equation. Careful clinical correlation is recommended, particularly when comparing to results calculated using previous equations. The CKD-EPI equation is less accurate in patients with extremes of muscle mass, extra-renal metabolism of creatine, excessive creatine ingestion, or following therapy that affects renal tubular secretion. Glucose [Mass/Vol] 459 mg/dL Critically high 70 - 9 9 mg/dL [facility] Interpretation and review of laboratory results Abnormal [facility] Potassium [Moles/Vol] 4.8 mmol/L 3.7 - 5.3 mmol/L [facility] Protein [Mass/Vol] 7.3 g/dL 6.4 - 8.3 g/dL [facility] Sodium [Moles/Vol] 138 mmol/L 135 - 144 mmol/L [facility] Urea nitrogen [Mass/Vol] 11 mg/dL 8 - 23 mg/dL [facility] Urea nitrogen/Creatinine [Mass ratio] 9 mg/mg 9 - 20 [facility] Comp Metabolic Profon 2023 Albumin [Mass/Vol] 4.2 g/dL Normal 3.5-5.2 [facility] Comment on above: Performed By: #### C ROSY, CP #### [facility] [address] [place] [address] [employer] Supervisor: Anibal Marquis MD Alkaline Phos 138 U/L High 40-129 [facility] Comment on above: Performed By: #### C ROSY, CP #### [facility] [address] [place], [place] [phone] [employer] Supervisor: Anibal Marquis MD ALT [Catalytic activity/Vol] 15 U/L Normal 5-41 [facility] Comment on above: Performed By: #### C DP, CP #### [facility] [address] [place], [place] [phone] [employer] Supervisor: Anibal Marquis MD Anion gap [Moles/Vol] 13 mmol/L Normal 9-17 [facility] Comment on above: Performed By: #### C DP, CP #### [facility] [address] [place], [place] [phone] [employer] Supervisor: Anibal Marquis MD AST [Catalytic activity/Vol] 16 U/L Normal <40 [facility] Comment on above: Performed By: #### C DP, CP #### [facility] [address] [place], [place] [phone] [employer] Supervisor: Anibal Marquis MD Bilirubin [Mass/Vol] 0.8 mg/dL Normal 0.3-1.2 [facility] Comment on above: Performed By: #### C DP, CP #### [facility] [address] [place] [address] [employer] Supervisor: Anibal Marquis MD BUN/CRE Ratio 9 Normal 9-20 [facility] Comment on above: Performed By: #### C DP, CP #### [facility] [address] [place], [place] [phone] [employer] Supervisor: Anibal Marquis MD Calcium [Mass/Vol] 9.3 mg/dL Normal 8.6-10.4 [facility] Comment on above: Performed By: #### C DP, CP #### [facility] [address] [place], [place] [phone] [employer] Supervisor: Anibal Marquis MD Chloride [Moles/Vol] 100 mmol/L Normal 98-107 [facility] Comment on above: Performed By: #### C DP, CP #### [facility] [address] [place], [place] [phone] [employer] Supervisor: Anibal Marquis MD CO2 [Moles/Vol] 25 mmol/L Normal 20-31 [facility] Comment on above: Performed By: #### C DP, CP #### [facility] [address] [place] [address] [employer] Supervisor: Anibal Marquis MD Creatinine [Mass/Vol] 1.2 mg/dL Normal 0.7-1.2 [facility] Comment on above: Performed By: #### C DP, CP #### [facility] [address] [place] [address] [employer] Supervisor: Anibal Marquis MD GFR/1.73 sq M.predicted among non-blacks MDRD (S/P/Bld) [Vol rate/Area] 68 mL/min/{1.73_m2} Normal >60 [facility] Comment on above: Result Comment: These results are not intended for use in patients <18 years of age. eGFR results are calculated without a race factor using the 2020 CKD-EPI equation. Careful clinical correlation is recommended, particularly when comparing to results calculated using previous equations. The CKD-EPI equation is less accurate in patients with extremes of muscle mass, extra-renal metabolism of creatine, excessive creatine ingestion, or following therapy that affects renal tubular secretion. Performed By: #### C DP, CP #### [facility] [address] [place] [address] [employer] Supervisor: Anibal Marquis MD Glucose [Mass/Vol] 459 mg/dL Critically high 70-99 M [facility] Comment on above: Performed By: #### C DP, CP #### [facility] [address] [place] [address] [employer] Supervisor: Anibal Marquis MD Potassium [Moles/Vol] 4.8 mmol/L Normal 3.7-5.3 [facility] Comment on above: Performed By: #### C DP, CP #### [facility] [address] [place] [address] [employer] Supervisor: Anibal Marquis MD Protein [Mass/Vol] 7.3 g/dL Normal 6.4-8.3 [facility] Comment on above: Performed By: #### C DP, CP #### [facility] [address] [facility] [place] [address] [employer] Supervisor: Anibal Marquis MD Sodium [Moles/Vol] 138 mmol/L Normal 135-144 [facility] Comment on above: Performed By: #### C DP, CP #### [facility] [address] [place] [address] [employer] Supervisor: Anibal Marquis MD Urea nitrogen [Mass/Vol] 11 mg/dL Normal 8-23 [facility] Comment on above: Performed By: #### C DP, CP #### [facility] [address] [place] [address] [employer] Supervisor: Anibal Marquis MD Glucose, Whole Bloodon 07-02 Glucose [Mass/Vol] 157 mg/dL High 65 - 99 mg/dL [facility] Interpretation and review of laboratory results Abnormal [facility] Glucose,Whole Bloodon 2023 Glucose [Mass/Vol] 157 mg/dL High 65-99 [facility] Lactic Acidon 07-03-2023 Lactate [Moles/Vol] 2.2 mmol/L Normal 0.5-2.2 [facility] Comment on above: Performed By: #### C DP, BMPX #### [facility] [address] [place] [address] [employer] Supervisor: Anibal Marquis MD Lactate (BldV) [Moles/Vol] 2.2 mmol/L 0.5 - 2.2 mmol/L [facility] XR FOOT LEFT (MIN 3 VIEWS)on 07-03-2023 XR FOOT LEFT (MIN 3 VIEWS) IMAGES REVIEWED: XR FOOT LEFT (MIN 3 VIEWS) COMPARISON: 06/26/2022. CLINICAL INDICATION: new wound on arch of foot (not there yesterday), Hx DM w/ neuropathy and CMT disease, r/o FB or air IMPRESSION: FINDINGS/IMPRESSION: 1. Advanced neuropathic arthropathy of the midfoot/hindfoot with associated severe bony fragmentation and dislocation/disorgan ization as well as midfoot collapse, new compared to prior from 06/26/2022. 2. Given apparent plantar midfoot soft tissue ulcer and diffuse moderate soft tissue swelling of the left foot which could suggest cellulitis, as well as apparent fairly prominent tibiotalar joint effusion extending into the midfoot, superimposed osteomyelitis is a consideration and further evaluation with MRI should be considered. Again destructive change of the midfoot/hindfoot is favored to relate to neuropathic arthropathy as opposed to osteomyelitis. 3. BB marker placed by technologist. No radiopaque foreign body or soft tissue gas collection seen deep to the plantar midfoot soft tissue ulcer. 4. New partial amputation of the first digit at the level of the distal first metatarsal. Small plantar calcaneal spur. Osteopenia. Possible small loose bodies in the posterior recess of the ankle. Question neuropathic arthropathy versus less likely osteomyelitis of the ankle as well. Interpreted by: Timoteo Monroy MD Signed by: Timoteo Monroy MD 07/03/23 Final result Normal [facility] XR Foot - left 3 Viewson FINDINGS/IMPRESSION: 1. Advanced neuropathic arthropathy of the midfoot/hindfoot with associated severe bony fragmentation and dislocation/disorgan ization as well as midfoot collapse, new compared to prior from 06/26/2022. 2. Given apparent plantar midfoot soft tissue ulcer and diffuse moderate soft tissue swelling of the left foot which could suggest cellulitis, as well as apparent fairly prominent tibiotalar joint effusion extending into the midfoot, superimposed osteomyelitis is a consideration and further evaluation with MRI should be considered. Again destructive change of the midfoot/hindfoot is favored to relate to neuropathic arthropathy as opposed to osteomyelitis. 3. BB marker placed by technologist. No radiopaque foreign body or soft tissue gas collection seen deep to the plantar midfoot soft tissue ulcer. 4. New partial amputation of the first digit at the level of the distal first metatarsal. Small plantar calcaneal spur. Osteopenia. Possible small loose bodies in the posterior recess of the ankle. Question neuropathic arthropathy versus less likely osteomyelitis of the ankle as well. [facility] IMAGES REVIEWED: XR FOOT LEFT (MIN 3 VIEWS) COMPARISON: 06/26/2022. CLINICAL INDICATION: new wound on arch of foot (not there yesterday), Hx DM w/ neuropathy and CMT disease, r/o FB or air [facility] Timoteo Monroy MD - 07/03/2023 IMAGES REVIEWED: XR FOOT LEFT (MIN 3 VIEWS) COMPARISON: 06/26/2022. CLINICAL INDICATION: new wound on arch of foot (not there yesterday), Hx DM w/ neuropathy and CMT disease, r/o FB or air IMPRESSION: FINDINGS/IMPRESSION: 1. Advanced neuropathic arthropathy of the midfoot/hindfoot with associated severe bony fragmentation and dislocation/disorgan ization as well as midfoot collapse, new compared to prior from 06/26/2022. 2. Given apparent plantar midfoot soft tissue ulcer and diffuse moderate soft tissue swelling of the left foot which could suggest cellulitis, as well as apparent fairly prominent tibiotalar joint effusion extending into the midfoot, superimposed osteomyelitis is a consideration and further evaluation with MRI should be considered. Again destructive change of the midfoot/hindfoot is favored to relate to neuropathic arthropathy as opposed to osteomyelitis. 3. BB marker placed by technologist. No radiopaque foreign body or soft tissue gas collection seen deep to the plantar midfoot soft tissue ulcer. 4. New partial amputation of the first digit at the level of the distal first metatarsal. Small plantar calcaneal spur. Osteopenia. Possible small loose bodies in the posterior recess of the ankle. Question neuropathic arthropathy versus less likely osteomyelitis of the ankle as well. [facility] Radiology Study observation (narrative) [facility] XR Foot - left 3 ViewsOrdere d By: Timoteo Monroy on 07-03-2023 [facility] Work Phone: US Kidneyon 06-06-2023 Normal study. [facility] EXAM: US RENAL COMPLETE. HISTORY: HALEY (acute kidney injury) (HCC). COMPARISON: CT abdomen and pelvis 12/04/2021 FINDINGS: POSITIVES related to history: None. NEGATIVES related to history: Normal echogenicity of the kidneys with no mass or hydronephrosis. ROUTINE: Right kidney: 10.5 x 5.5 x 5.7 cm with cortical thickness 18 mm. Left kidney: 9.9 x 4.9 x 4.5 cm with cortical thickness 14 mm. Both ureteral jets are seen. The bladder volume 459 mL with 40 mL postvoid residual. [facility] Primo Neely Jr., MD - 06/06/2023 EXAM: US RENAL COMPLETE. HISTORY: HALEY (acute kidney injury) (HCC). COMPARISON: CT abdomen and pelvis 12/04/2021 FINDINGS: POSITIVES related to history: None. NEGATIVES related to history: Normal echogenicity of the kidneys with no mass or hydronephrosis. ROUTINE: Right kidney: 10.5 x 5.5 x 5.7 cm with cortical thickness 18 mm. Left kidney: 9.9 x 4.9 x 4.5 cm with cortical thickness 14 mm. Both ureteral jets are seen. The bladder volume 459 mL with 40 mL postvoid residual. IMPRESSION: Normal study. [facility] Radiology Study observation (narrative) [facility] US KidneyOrdered By: Primo Neely on 06-06-2023 [facility] Work Phone: US RENAL COMPLETEon 06-06-19 US RENAL COMPLETE EXAM: US RENAL COMPLETE. HISTORY: HALEY (acute kidney injury) (HCC). COMPARISON: CT abdomen and pelvis 12/04/2021 FINDINGS: POSITIVES related to history: None. NEGATIVES related to history: Normal echogenicity of the kidneys with no mass or hydronephrosis. ROUTINE: Right kidney: 10.5 x 5.5 x 5.7 cm with cortical thickness 18 mm. Left kidney: 9.9 x 4.9 x 4.5 cm with cortical thickness 14 mm. Both ureteral jets are seen. The bladder volume 459 mL with 40 mL postvoid residual. IMPRESSION: Normal study. Interpreted by: Primo Neely Jr., MD Signed by: Primo Neely Jr., MD 06/06/23 Final result Normal [facility] CBC with Diffon 05-21-2023 Abs. Basophil 0.03 k/uL Normal 0.00-0.20 [facility] Comment on above: Performed By: #### C DP, BMPX #### [facility] [address] [place] [address] [employer] Supervisor: Anibal Marquis MD Abs.Imm.Granulocyte 0.01 k/uL Normal 0.00-0.30 [facility] Comment on above: Performed By: #### C DP, BMPX #### [facility] [address] [place] [phone] [employer] Supervisor: Anibal Marquis MD Abs.Neutrophil (Seg) 2.97 k/uL Normal 2.1-6.5 [facility] Comment on above: Performed By: #### C DP, BMPX #### [facility] [address] [place] [phone] [employer] Supervisor: Anibal Marquis MD Basophils/100 WBC (Bld) 1 % Normal 0-2 [facility] Comment on above: Performed By: #### C DP, BMPX #### [facility] [address] [place] [phone] [employer] Supervisor: Anibal Marquis MD Eosinophils (Bld) [#/Vol] 0.17 10*3/uL Normal 0.00-0.40 [facility] Comment on above: Performed By: #### C DP, BMPX #### [facility] [address] [place] [phone] [employer] Supervisor: Anibal Marquis MD Eosinophils/100 WBC (Bld) 3 % Normal 0-5 [facility] Comment on above: Performed By: #### C DP, BMPX #### [facility] [address] [place] [phone] [employer] Supervisor: Anibal Marquis MD Erythrocyte distribution width (RBC) [Ratio] 13.0 % Normal 12.1-15.2 [facility] Comment on above: Performed By: #### C DP, BMPX #### [facility] [address] [place] [address] [employer] Supervisor: Anibal Marquis MD Hematocrit (Bld) [Volume fraction] 34.1 % Low 41.0-53.0 [facility] Comment on above: Performed By: #### C DP, BMPX #### [facility] [address] [place] [address] [employer] Supervisor: Anibal Marquis MD Hemoglobin (Bld) [Mass/Vol] 11.3 g/dL Low 13.5-17.5 [facility] Comment on above: Performed By: #### C DP, BMPX #### [facility] [address] [place] [address] [employer] Supervisor: Anibal Marquis MD Immature granulocytes/100 WBC (Bld) 0 % Normal 0-5 [facility] Comment on above: Performed By: #### C DP, BMPX #### [facility] [address] [place] [address] [employer] Supervisor: Anibal Marquis MD Lymphocytes (Bld) [#/Vol] 1.72 10*3/uL Normal 1.00-4.80 [facility] Comment on above: Performed By: #### C DP, BMPX #### [facility] [address] [place] [address] [employer] Supervisor: Anibal Marquis MD Lymphocytes/100 WBC (Bld) 33 % Normal 13-44 [facility] Comment on above: Performed By: #### C DP, BMPX #### [facility] [address] [place] [address] [employer] Supervisor: Anibal Marquis MD MCH (RBC) [Entitic mass] 30.5 pg Normal 26.0-34.0 [facility] Comment on above: Performed By: #### C DP, BMPX #### [facility] [address] [place] [address] [employer] Supervisor: Anibal Marquis MD MCHC (RBC) [Mass/Vol] 33.1 g/dL Normal 31.0-37.0 [facility] Comment on above: Performed By: #### C DP, BMPX #### [facility] [address] [place] [address] [employer] Supervisor: Anibal Marquis MD MCV (RBC) [Entitic vol] 92.2 fL Normal 80.0-100.0 [facility] Comment on above: Performed By: #### C DP, BMPX #### [facility] [address] [place] [address] [employer] Supervisor: Anibal Marquis MD Monocytes (Bld) [#/Vol] 0.36 10*3/uL Normal 0.00-1.00 [facility] Comment on above: Performed By: #### C DP, BMPX #### [facility] [address] [place] [address] [employer] Supervisor: Anibal Marquis MD Monocytes/100 WBC (Bld) 7 % Normal 5-9 M [facility] Comment on above: Performed By: #### C DP, BMPX #### [facility] [address] [place] [address] [employer] Supervisor: Anibal Marquis MD Neutrophil (Seg) 56 % Normal 39-75 [facility] Comment on above: Performed By: #### C DP, BMPX #### [facility] [address] [place] [address] [employer] Supervisor: Anibal Marquis MD Platelet mean volume (Bld) [Entitic vol] 9.4 fL Normal 6.0-12.0 [facility] Comment on above: Performed By: #### C DP, BMPX #### [facility] [address] [place] [address] [phone] [employer] Supervisor: Anibal Marquis MD Platelets (Bld) [#/Vol] 197 10*3/uL Normal 140-450 [facility] Comment on above: Performed By: #### C DP, BMPX #### [facility] [address] [place] [address] [employer] Supervisor: Anibal Marquis MD RBC (Bld) [#/Vol] 3.70 10*6/uL Low 4.50-5.90 [facility] Comment on above: Performed By: #### C DP, BMPX #### [facility] [address] [place], [place] [phone] [employer] Supervisor: Anibal Marquis MD WBC (Bld) [#/Vol] 5.3 10*3/uL Normal 3.5-11.0 [facility] Comment on above: Performed By: #### C DP, BMPX #### [facility] [address] [place], [place] [phone] [employer] Supervisor: Anibal Marquis MD Comp Metabolic Profon 2023 Albumin [Mass/Vol] 4.1 g/dL Normal 3.5-5.2 [facility] Comment on above: Performed By: #### C DP, BMPX #### [facility] [address] [place] [address] [employer] Supervisor: Anibal Marquis MD Alkaline Phos 112 U/L Normal 40-129 [facility] Comment on above: Performed By: #### C DP, BMPX #### [facility] [address] [place] [address] [employer] Supervisor: Anibal Marquis MD ALT [Catalytic activity/Vol] 14 U/L Normal 5-41 [facility] Comment on above: Performed By: #### C DP, BMPX #### [facility] [address] [place], [place] [phone] [employer] Supervisor: Anibal Marquis MD Anion gap [Moles/Vol] 15 mmol/L Normal 9-17 [facility] Comment on above: Performed By: #### C DP, BMPX #### [facility] [address] [place], [place] [phone] [employer] Supervisor: Anibal Marquis MD AST [Catalytic activity/Vol] 16 U/L Normal <40 [facility] Comment on above: Performed By: #### C DP, BMPX #### [facility] [address] [place], [place] [phone] [employer] Supervisor: Anibal Marquis MD Bilirubin [Mass/Vol] 0.7 mg/dL Normal 0.3-1.2 [facility] Comment on above: Performed By: #### C DP, BMPX #### [facility] [address] [place], [place] [phone] [employer] Supervisor: Anibal Marquis MD BUN/CRE Ratio 13 Normal 9-20 [facility] Comment on above: Performed By: #### C DP, BMPX #### [facility] [address] [place], [place] [phone] [employer] Supervisor: Anibal Marquis MD Calcium [Mass/Vol] 9.4 mg/dL Normal 8.6-10.4 [facility] Comment on above: Performed By: #### C DP, BMPX #### [facility] [address] [place], [place] [phone] [employer] Supervisor: Anibal Marquis MD Chloride [Moles/Vol] 104 mmol/L Normal 98-107 [facility] Comment on above: Performed By: #### C DP, BMPX #### [facility] [address] [place], [place] [phone] [employer] Supervisor: Anibal Marquis MD CO2 [Moles/Vol] 22 mmol/L Normal 20-31 [facility] Comment on above: Performed By: #### C DP, BMPX #### [facility] [address] [place] [address] [employer] Supervisor: Anibal Marquis MD Creatinine [Mass/Vol] 2.1 mg/dL High 0.7-1.2 [facility] Comment on above: Performed By: #### C DP, BMPX #### [facility] [address] [place] [address] [employer] Supervisor: Anibal Marquis MD GFR/1.73 sq M.predicted among non-blacks MDRD (S/P/Bld) [Vol rate/Area] 35 mL/min/{1.73_m2} Low >60 [facility] Comment on above: Result Comment: These results are not intended for use in patients <18 years of age. eGFR results are calculated without a race factor using the 2020 CKD-EPI equation. Careful clinical correlation is recommended, particularly when comparing to results calculated using previous equations. The CKD-EPI equation is less accurate in patients with extremes of muscle mass, extra-renal metabolism of creatine, excessive creatine ingestion, or following therapy that affects renal tubular secretion. Performed By: #### C DP, BMPX #### [facility] [address] [place] [address] [employer] Supervisor: Anibal Marquis MD Glucose [Mass/Vol] 247 mg/dL High 70-99 [facility] Comment on above: Performed By: #### C DP, BMPX #### [facility] [address] [place] [address] [employer] Supervisor: Anibal Marquis MD Potassium [Moles/Vol] 4.8 mmol/L Normal 3.7-5.3 [facility] Comment on above: Performed By: #### C DP, BMPX #### [facility] [address] [place] [address] [employer] Supervisor: Anibal Marquis MD Protein [Mass/Vol] 7.0 g/dL Normal 6.4-8.3 [facility] Comment on above: Performed By: #### C DP, BMPX #### [facility] [address] [place], [place] 1949[address] [employer] Supervisor: Anibal Marquis MD Sodium [Moles/Vol] 141 mmol/L Normal 135-144 [facility] Comment on above: Performed By: #### C DP, BMPX #### [facility] [address] [place], [place] 0331290 [employer] Supervisor: Anibal Marquis MD Urea nitrogen [Mass/Vol] 28 mg/dL High 8-23 [facility] Comment on above: Performed By: #### C DP, BMPX #### [facility] [address] [place], [place] [id number] [employer] Supervisor: Anibal Marquis MD Ferritinon 05-21-2023 Ferritin [Mass/Vol] 192 ng/mL Normal 30-400 [facility] Comment on above: Result Comment: No r eference range established for this age/gender. Performed By: #### C DP, BMPX #### [facility] [address] [place], [place] 3425[address] [employer] Supervisor: Anibal Marquis MD Ironon 05-21-2023 Iron [Mass/Vol] 71 ug/dL Normal 61-157 [facility] Comment on above: Performed By: #### C DP, BMPX #### [facility] [address] [place] [address] [employer] Supervisor: Anibal Marquis MD Insurance Correspondence Off iceon 02-21-2023 Insurance Correspondence Office [phone] [id number] 69#1.00TIFF Normal [facility] Nursing Assessment - Woundon 02-19-2023 Nursing Assessment - Wound [id number] 51#1.00TIFF Normal [facility] Nursing Assessment - Woundon 02-15-2023 Nursing Assessment - Wound [id number] 8#1.00TIFF Normal [facility] Ironon 02-14-2023 Iron [Mass/Vol] 70 ug/dL Normal 59-158 [facility] Comment on above: Performed By: #### C DP, TSHX, CP, MG ####[facility] Hqj110[address] [place] [address] Lab Director: Anibal Marquis MD#### LIPR, PSAS, FE ####[address] [place], [place] 7169308 Lab Director: Tai Albarran MD CBC with Diffon 02-13-2023 Abs. Basophil 0.03 k/uL Normal 0.00-0.20 [facility] Comment on above: Performed By: #### C DP, TSHX, CP, MG ####[facility] Oou[address] [place] [address] lab Director: Anibal Marquis MD#### ANTOINE PSAS, FE ####[address] [place] [address] Lab Director: Tai Albarran MD Abs.Imm.Granulocyte 0.02 k/uL Normal 0.00-0.30 [facility] Comment on above: Performed By: #### C DP, TSHX, CP, MG ####[facility] Xin[address] [place], [place] 0157490 Lab Director: Anibal Marquis MD#### ANTOINE PSAS, FE ####[address] [place] [address] Lab Director: Tai Albarran MD Abs.Neutrophil (Seg) 3.55 k/uL Normal 2.1-6.5 [facility] Comment on above: Performed By: #### C DP, TSHX, CP, MG ####[facility] Qcr8149 [place] [address] lab Director: Anibal Marquis MD#### LIPR, PSAS, FE ####[address] [place] [address] Lab Director: Tai Albarran MD Basophils/100 WBC (Bld) 1 % Normal 0-2 M [facility] Comment on above: Performed By: #### C DP, TSHX, CP, MG ####[facility] [phone]([facility])[phone] Director: Anibal Marquis MD#### LIPR, PSAS, FE ####[place] [address] Lab Director: Tai Albarran MD Eosinophils (Bld) [#/Vol] 0.15 10*3/uL Normal 0.00-0.40 [facility] Comment on above: Performed By: #### C DP, TSHX, CP, MG ####[facility] [address] [phone] Lab Director: Anibal Marquis MD#### LIPAdarsh, PSAS, FE ####[place] [address] Lab Director: Tai Albarran MD Eosinophils/100 WBC (Bld) 3 % Normal 0-5 [facility] Comment on above: Performed By: #### C DP, TSHX, CP, MG ####[facility] [address] [phone] Lab Director: Anibal Marquis MD#### LIPR, PSAS, FE ####[place] [address] Lab Director: Tai Albarran MD Erythrocyte distribution width (RBC) [Ratio] 13.7 % Normal 12.1-15.2 [facility] Comment on above: Performed By: #### C DP, TSHX, CP, MG ####[facility] [address] [place] [address] Lab Director: Anibal Marquis MD#### LIPR PSAS, FE ####[facility] [address] [place] [address] Lab Director: Tai Albarran MD Hematocrit (Bld) [Volume fraction] 34.3 % Low 41.0-53.0 [facility] Comment on above: Performed By: #### C DP, TSHX, CP, MG ####[facility] Oux[address] [place], [place] 9811190 Lab Director: Anibal Marquis MD#### ANTOINE PSAS, FE ####[address] [address] Lab Director: Tai Albarran MD Hemoglobin (Bld) [Mass/Vol] 11.4 g/dL Low 13.5-17.5 [facility] Comment on above: Performed By: #### C DP, TSHX, CP, MG ####[facility] Rgk[address] [place], [place] 5036990 Lab Director: Anibal Marquis MD#### ANTOINE PSAS, FE ####[address] [place] [address] Lab Director: Tai Albarran MD Immature granulocytes/100 WBC (Bld) 0 % Normal 0-5 [facility] Comment on above: Performed By: #### C DP, TSHX, CP, MG ####[facility] Ski[address] [place], [place] 5687290 Lab Director: Anibal Marquis MD#### LIPR PSAS, FE ####[address] [place] [address] Lab Director: Tai Albarran MD Lymphocytes (Bld) [#/Vol] 1.65 10*3/uL Normal 1.00-4.80 [facility] Comment on above: Performed By: #### C DP, TSHX, CP, MG ####[facility] Xdu77[address] [place], [place] [address])[phone] Director: Anibal Marquis MD#### LIPR, PSAS, FE ####[place] [address] Lab Director: Tai Albarran MD Lymphocytes/100 WBC (Bld) 29 % Normal 13-44 [facility] Comment on above: Performed By: #### C DP, TSHX, CP, MG ####[facility] Jsd5526 [place], [place] [address])[phone] Director: Anibal Marquis MD#### ANTOINE PSAS, FE ####[place] [address] Lab Director: Tai Albarran MD MCH (RBC) [Entitic mass] 29.4 pg Normal 26.0-34.0 [facility] Comment on above: Performed By: #### C DP, TSHX, CP, MG ####[facility] Cwm9621 [place] [address] lab Director: Anibal Marquis MD#### ANTOINE PSANain, FE ####[place] [address] Lab Director: Tai Albarran MD MCHC (RBC) [Mass/Vol] 33.2 g/dL Normal 31.0-37.0 [facility] Comment on above: Performed By: #### C DP, TSHX, CP, MG ####[facility] Cfv1819 [place] [address] Lab Director: Anibal Marquis MD#### ANTOINE PSAS, FE ####[address] [address] Lab Director: Tai Albarran MD MCV (RBC) [Entitic vol] 88.4 fL Normal 80.0-100.0 M [facility] Comment on above: Performed By: #### C DP, TSHX, CP, MG ####[facility] Ksy[address] [place] [address] Lab Director: Anibal Marquis MD#### LIPR, PSAS, FE ####[facility] [address] [place] [address] Lab Director: Tai Albarran MD Monocytes (Bld) [#/Vol] 0.38 10*3/uL Normal 0.00-1.00 [facility] Comment on above: Performed By: #### C DP, TSHX, CP, MG ####[facility] Mxm80[address] [place], [place] [address])[phone] Director: Anibal Marquis MD#### ANTOINE PSAS, FE ####[address] [address] Lab Director: Tai Albarran MD Monocytes/100 WBC (Bld) 7 % Normal 5-9 M [facility] Comment on above: Performed By: #### C DP, TSHX, CP, MG ####[facility] [address]sx[address] [place] [phone] Lab Director: Anibal Marquis MD#### LIPAdarsh, PSAS, FE ####[address] [place] [address] Lab Director: Tai Albarran MD Neutrophil (Seg) 62 % Normal 39-75 [facility] Comment on above: Performed By: #### C DP, TSHX, CP, MG ####[facility] Baj[address] [place], [place] 0804390 Lab Director: Anibal Marquis MD#### LIPR, PSAS, FE ####[facility] Tg[address]zzknpd8978 [place], [place] [phone] Director: Tai Albarran MD Platelet mean volume (Bld) [Entitic vol] 9.4 fL Normal 6.0-12.0 [facility] Comment on above: Performed By: #### C DP, TSHX, CP, MG ####[facility] [address] [phone])[phone] Director: Anibal Marquis MD#### LIPR, PSAS, FE ####[address] [place], [place] [address])[phone] Director: Tai Albarran MD Platelets (Bld) [#/Vol] 235 10*3/uL Normal 140-450 [facility] Comment on above: Performed By: #### C DP, TSHX, CP, MG ####[facility] Bgw[address] [place], [place] [address])[phone] Director: Anibal Marquis MD#### LIPAdarsh, PSAS, FE ####[address] [place], [place] [phone] Director: Tai Albarran MD RBC (Bld) [#/Vol] 3.88 10*6/uL Low 4.50-5.90 [facility] Comment on above: Performed By: #### C DP, TSHX, CP, MG ####[facility] [address] [phone])[phone] Director: Anibal Marquis MD#### LIPR, PSAS, FE ####[address] [place], [place] [phone] Director: Tai Albarran MD WBC (Bld) [#/Vol] 5.8 10*3/uL Normal 3.5-11.0 [facility] Comment on above: Performed By: #### C DP, TSHX, CP, MG ####[facility] Hne7517 [place], [place] 9822990 Lab Director: Anibal Marquis MD#### LIPR, PSAS, FE ####[facility] [address] [place] [address] Lab Director: Tai Albarran MD Comp Metabolic Profon 2022 Albumin [Mass/Vol] 4.3 g/dL Normal 3.5-5.2 [facility] Comment on above: Performed By: #### C DP, TSHX, CP, MG ####[facility] Unz[address] [place], [place] 2122190 Lab Director: Anibal Marquis MD#### ANTOINE PSAS, FE ####[address] [place] [address] Lab Director: Tai Albarran MD Alkaline Phos 179 U/L High 40-129 [facility] Comment on above: Performed By: #### C DP, TSHX, CP, MG ####[facility] Deg[address] [place], [place] [phone] Lab Director: Aniabl Marquis MD#### ANTOINE PSAS, FE ####[address] [place] [address] Lab Director: Tai Albarran MD ALT [Catalytic activity/Vol] 8 U/L Normal 5-41 [facility] Comment on above: Performed By: #### C DP, TSHX, CP, MG ####[facility] Yle7559 [place], [place] 8349890 Lab Director: Anibal Marquis MD#### LIPR, PSAS, FE ####[address] [place], [place] 1072908 Lab Director: Tai Albarran MD Anion gap [Moles/Vol] 11 mmol/L Normal 9-17 [facility] Comment on above: Performed By: #### C DP, TSHX, CP, MG ####[facility] Vxi6595 [place] [address] Lab Director: Anibal Marquis MD#### LIPR, PSAS, FE ####[address] [place] [address] Lab Director: Tai Albarran MD AST [Catalytic activity/Vol] 9 U/L Normal <40 [facility] Comment on above: Performed By: #### C DP, TSHX, CP, MG ####[facility] Rfz97[address] [place], [place] [address])[phone] Director: Anibal Marquis MD#### ANTOINE PSAS, FE ####[address] [address] Lab Director: Tai Albarran MD Bilirubin [Mass/Vol] 0.5 mg/dL Normal 0.3-1.2 [facility] Comment on above: Performed By: #### C DP, TSHX, CP, MG ####[facility] [address] [place] [phone] Lab Director: Anibal Marquis MD#### ANTOINE PSAS, FE ####[address] [address] Lab Director: Tai Albarran MD BUN/CRE Ratio 14 Normal 9-20 [facility] Comment on above: Performed By: #### C DP, TSHX, CP, MG ####[facility] Hha0914 [place] [address] Lab Director: Anibal Marquis MD#### LIPR, PSAS, FE ####[address] [place] [address] Lab Director: Tai Albarran MD Calcium [Mass/Vol] 9.7 mg/dL Normal 8.6-10.4 [facility] Comment on above: Performed By: #### C DP, TSHX, CP, MG ####[facility] Dvw5603 [place] [address] Lab Director: Anibal Marquis MD#### LIPAdarsh PSAS, FE ####[address] 8352508 Lab Director: Tai Albarran MD Chloride [Moles/Vol] 96 mmol/L Low 98-107 [facility] Comment on above: Performed By: #### C DP, TSHX, CP, MG ####[facility] Ndx[address] [place], [place] [phone] Lab Director: Anibal Marquis MD#### ANTOINE PSAS, FE ####[address] [address] Lab Director: Tai Albarran MD CO2 [Moles/Vol] 26 mmol/L Normal 20-31 [facility] Comment on above: Performed By: #### C DP, TSHX, CP, MG ####[facility] Yhw2995 [place], [place] 7288990 Lab Director: Anibal Marquis MD#### ANTOINE PSAS, FE ####[address] [address] Lab Director: Tai Albarran MD Creatinine [Mass/Vol] 1.2 mg/dL Normal 0.7-1.2 [facility] Comment on above: Performed By: #### C DP, TSHX, CP, MG ####[facility] Vfh[address] [place], [place] 3123390 Lab Director: Anibal Marquis MD#### LIPAdarsh PSAS, FE ####[address], [place] 2021708 Lab Director: Tai Albarran MD GFR/1.73 sq M.predicted among non-blacks MDRD (S/P/Bld) [Vol rate/Area] mL/min/{1.73_m2} Normal >60 [facility] Comment on above: Result Comment: These results are not intended for use in patients <18 years of age. eGFR results are calculated without a race factor using the 2020 CKD-EPI equation. Careful clinical correlation is recommended, particularly when comparing to results calculated using previous equations. The CKD-EPI equation is less accurate in patients with extremes of muscle mass, extra-renal metabolism of creatine, excessive creatine ingestion, or following therapy that affects renal tubular secretion. Performed By: #### C DP, TSHX, CP, MG ####[facility] Yhe1694 [place] [address] lab Director: Anibal Marquis MD#### CRISTIANO SCHULTZ, FE ####[address] [place], [place] 0049708 Lab Director: Tai Albarran MD Glucose [Mass/Vol] 334 mg/dL High 70-99 [facility] Comment on above: Performed By: #### C DP, TSHX, CP, MG ####[facility] Xpl[address] [place], [place] 6390290 Lab Director: Anibal Marquis MD#### ANTOINE PSANain, FE ####[address] [place], [place] 8722808 Lab Director: Tai Albarran MD Potassium [Moles/Vol] 4.4 mmol/L Normal 3.7-5.3 [facility] Comment on above: Performed By: #### C DP, TSHX, CP, MG ####[facility] Aal24[address] [place] [address] Lab Director: Anibal Marquis MD#### ANTOINE PSAS, FE ####[facility] [place] [address] Lab Director: Tai Albarran MD Protein [Mass/Vol] 7.7 g/dL Normal 6.4-8.3 [facility] Comment on above: Performed By: #### C DP, TSHX, CP, MG ####[facility] Pbj6748 [place] [address] Lab Director: Anibal Marquis MD#### ANTOINE PSAS, FE ####[facility] [address]ubx[address]22 [place] [address] Lab Director: Tai Albarran MD Sodium [Moles/Vol] 133 mmol/L Low 135-144 [facility] Comment on above: Performed By: #### C DP, TSHX, CP, MG ####[facility] Pyh7396 [place], [place] 1532090 Lab Director: Anibal Marquis MD#### ANTOINE PSANain, FE ####[address] [place], [place] 0263708 Lab Director: Tai Albarran MD Urea nitrogen [Mass/Vol] 17 mg/dL Normal 8-23 [facility] Comment on above: Performed By: #### C DP, TSHX, CP, MG ####[facility] Tcn[address] [place] [address] Lab Director: Anibal Marquis MD#### ANTOINE PSAS, FE ####[address] [place], [place] 3942308 Lab Director: Tai Albarran MD Lipid Profileon 02-13-2023 Cholesterol [Mass/Vol] 136 mg/dL Normal 0-199 [facility] Comment on above: Result Comment: Cholesterol Guidelines: <200 Desirable 200-240 Borderline >240 Undesirable Performed By: #### C DP, TSHX, CP, MG ####[facility] Gyw0975 [place] [address] Lab Director: Anibal Marquis MD#### LIPR PSAS, FE ####[facility] F[address]chmzu[address] [place] [address] Lab Director: Tai Albarran MD Cholesterol in HDL [Mass/Vol] 36 mg/dL Low >40 [facility] Comment on above: Result Comment: HDL Guidelines: <40 Undesirable 40-59 Borderline >59 Desirable Performed By: #### C DP, TSHX, CP, MG ####[facility] Yan59[address] [place] [address] Lab Director: Anibal Marquis MD#### ANTOINE, PSAS, FE ####[facility] [place] [address] Lab Director: Tai Albarran MD Cholesterol in LDL [Mass/Vol] 51 mg/dL Normal 0-100 [facility] Comment on above: Result Comment: LDL Guidelines: <100 Desirable 100-129 Near to/above Desirable 130-159 Borderline >159 Undesirable Direct (measured) LDL and calculated LDL are not interchangeable tests. Performed By: #### C DP, TSHX, CP, MG ####[facility] Ffh[address]381 [place] [address] Lab Director: Anibal Marquis MD#### LIPAdarsh PSAS, FE ####[facility] [address]jo[address] [place] [address] Lab Director: Tai Albarran MD Cholesterol in VLDL [Mass/Vol] 49 mg/dL Normal [facility] Comment on above: Performed By: #### C DP, TSHX, CP, MG ####[facility] Ute[address]13 [place] [address] Lab Director: Anibal Marquis MD#### LIPR PSAS, FE ####[facility] [address] [place] [address] Lab Director: Tai Albarran MD Cholesterol.total/Choles terol in HDL [Mass ratio] 4.0 {ratio} Normal [facility] Comment on above: Performed By: #### C DP, TSHX, CP, MG ####[facility] Kmz8673 [place] [address] Lab Director: Anibal Marquis MD#### RAQUEL SCHULTZS, FE ####[facility] [place] [address] Lab Director: Tai Albarran MD Triglyceride [Mass/Vol] 245 mg/dL High 0-149 M [facility] Comment on above: Result Comment: Triglyceride Guidelines: <150 Desirable 150-199 Borderline 200-499 High >499 Very high Based on AHA Guidelines for fasting triglyceride, December 2011. Performed By: #### C DP, TSHX, CP, MG ####[facility] Vji[address] [place], [place] [address])[phone] Director: Anibal Marquis MD#### CRISTIANO SCHULTZ, FE ####[address] [place] [address] Lab Director: Tai Albarran MD Magnesiumon 02-13-2023 Magnesium [Mass/Vol] 2.1 mg/dL Normal 1.6-2.6 [facility] Comment on above: Performed By: #### C DP, TSHX, CP, MG ####[facility] Caf[address] [place], [place] [address])[phone] Director: Anibal Marquis MD#### CRISTIANO SCHULTZ, FE ####[facility] [address]una[address] [place], [place] 5940608 Lab Director: Tai Albarran MD Osmolality, Urineon 02-14-20 23 Osmolality - Urine 634 mOsm/kg Normal 80-1300 [facility] Comment on above: Performed By: #### U AMIC #### [facility] [address] [place], [place] 0996990 [employer] Supervisor: Anibal Marquis MD #### UOSMO #### [facility] [address] [place], [place] 3348808 [employer] Supervisor: Tai Albarran MD PSA, Screeningon 02-13-2023 Prostatic Spec. Ag 0.40 ng/mL Normal <4.1 [facility] Comment on above: Result Comment: The Tha ECLIA assay is used. Results obtained with different assay methods cannot be used interchangeably. Performed By: #### C DP, TSHX, CP, MG ####[facility] Nbr[address] [place], [place] 8299190 Lab Director: Anibal Marquis MD#### LIPR, PSAS, FE ####[address] [place] [address] Lab Director: Tai Albarran MD TSH w/reflex to FT4on 2022 Thyroid Stim. Horm. 1.66 uIU/mL Normal 0.30-5.00 [facility] Comment on above: Performed By: #### C DP, TSHX, CP, MG ####[facility] Nas9419 [place], [place] 7289090 Lab Director: Anibal Marquis MD#### LIPR, PSAS, FE ####[address] [place] [address] Lab Director: Tai Albarran MD Urinalysis w/ Microon 4 ----- Normal [facility] Comment on above: Performed By: #### U AMIC #### [facility] [address] [place], [place] 8607990 [employer] Supervisor: Anibal Marquis MD #### UOSMO #### [facility] [address] [place] [address] [employer] Supervisor: Tai Albarran MD Bilirubin, SemiQt,Ur Negative Normal NEG [facility] Comment on above: Performed By: #### U AMIC #### [facility] [address] [place] [address] [employer] Supervisor: Anibal Marquis MD #### UOSMO #### [facility] [address] [place] [address] [employer] Supervisor: Tai Albarran MD Blood, Urine TRACE Abnormal NEG [facility] Comment on above: Performed By: #### U AMIC #### [facility] [address] [place] [address] [employer] Supervisor: Anibal Marquis MD #### UOSMO #### [facility] [address] [place] [address] [employer] Supervisor: Tai Albarran MD Clarity (U) Clear Normal CLEAR [facility] Comment on above: Performed By: #### U AMIC #### [facility] [address] [place] [address] [employer] Supervisor: Anibal Marquis MD #### UOSMO #### [facility] [address] [place] [address] [employer] Supervisor: Tai Albarran MD Color (U) Yellow Normal YEL [facility] Comment on above: Performed By: #### U AMIC #### [facility] [address] [place] [address] [employer] Supervisor: Anibal Marquis MD #### UOSMO #### [facility] [address] [place] [address] [employer] Supervisor: Tai Albarran MD Comment Normal [facility] Comment on above: Performed By: #### U AMIC #### [facility] [address] [place] [address] [employer] Supervisor: Anibal Marquis MD #### UOSMO #### [facility] [address] [place] [address] [employer] Supervisor: Tai Albarran MD Epithelial cells LM Ql (Urine sed) 0 TO 2 Normal [facility] Comment on above: Performed By: #### U AMIC #### [facility] [address] [place] [address] [employer] Supervisor: Anibal Marquis MD #### UOSMO #### [facility] [address] [place] [address] [employer] Supervisor: Tai Albarran MD Glucose Ql (U) 1000 mg/dL Abnormal NEG [facility] Comment on above: Performed By: #### U AMIC #### [facility] [address] [place] [address] [employer] Supervisor: Anibal Marquis MD #### UOSMO #### [address] [address] [employer] Supervisor: Tai Albarran MD Ketones Ql (U) Negative Normal NEG [facility] Comment on above: Performed By: #### U AMIC #### [facility] [address] [place] [address] [employer] Supervisor: Anibal Marquis MD #### UOSMO #### [facility] [address] [place] [address] [employer] Supervisor: Tai Albarran MD Leukocyte esterase Test strip Ql (U) Negative Normal NEG [facility] Comment on above: Performed By: #### U AMIC #### [facility] [address] [place] [address] [employer] Supervisor: Anibal Marquis MD #### UOSMO #### [facility] [address] [place] [address] [employer] Supervisor: Tai Albarran MD Nitrite,Ur Negative Normal NEG [facility] Comment on above: Performed By: #### U AMIC #### [facility] [address] [place] [address] [employer] Supervisor: Anibal Marquis MD #### UOSMO #### [facility] [address] [place] [address] [employer] Supervisor: Tai Albarran MD PH,Ur 6.0 Normal 5.0-8.0 [facility] Comment on above: Performed By: #### U AMIC #### [facility] [address] [place] [address] [employer] Supervisor: Anibal Marquis MD #### UOSMO #### [address] [address] [address] [employer] Supervisor: Tai Albarran MD Protein Ql (U) Negative Normal NEG [facility] Comment on above: Performed By: #### U AMIC #### [facility] [address] [place] [address] [employer] Warehouse Supervisor: Anibal Marquis MD #### UOSMO #### [facility] [address] [place] [address] [employer] Supervisor: Tai Albarran MD Spec. [place],Ur 1.020 Normal 1.005-1.030 [facility] Comment on above: Performed By: #### U AMIC #### [facility] [address] [place] [address] [employer] Supervisor: Anibal Marquis MD #### UOSMO #### [facility] [address] [place] [address] [employer]house Supervisor: Tai Albarran MD Urine RBC's 0 TO 2 Normal 0-2 [facility] Comment on above: Performed By: #### U AMIC #### [facility] [address] [place] [address] [employer] Supervisor: Anibal Marquis MD #### UOSMO #### [facility] [address] [place] [address] [employer] Supervisor: Tai Albarran MD Urine WBC's NONE SEEN Normal 0 [facility] Comment on above: Performed By: #### U AMIC #### [facility] [address] [place], [place] [id number] [employer] Supervisor: Anibal Marquis MD #### UOSMO #### [facility] [address] [place] [address] [employer] Supervisor: Tai Albarran MD Urobilinogen,Ur Normal Normal 0.0-1.0 [facility] Comment on above: Performed By: #### U AMIC #### [facility] [address] [place], [place] [id number] [employer] Supervisor: Anibal Marquis MD #### UOSMO #### [facility] [address] [place] [address] [employer] Supervisor: Tai Albarran MD Basic Metabolic Profon 01-17 Anion gap [Moles/Vol] 13 mmol/L Normal - [facility] Comment on above: Performed By: #### C DP, BMP ####[facility] Kht[address] [place], [place] 0209[address] Lab Director: Anibal Marquis MD BUN/CRE Ratio 9 Normal - [facility] Comment on above: Performed By: #### C DP, BMP ####[facility] Qkg3311 [place], [place] 9881290 Lab Director: Anibal Marquis MD Calcium [Mass/Vol] 9.0 mg/dL Normal 8.6-10.4 [facility] Comment on above: Performed By: #### C DP, BMP ####[facility] Gin0610 [facility] [place] [address] lab Director: Anibal Marquis MD Chloride [Moles/Vol] 96 mmol/L Low 98-107 [facility] Comment on above: Performed By: #### C DP, BMP ####[facility] Ucd[address] [place] [address] Lab Director: Anibal Marquis MD CO2 [Moles/Vol] 24 mmol/L Normal 20-31 [facility] Comment on above: Performed By: #### C DP, BMP ####[facility] Jrq[address] [place] [address] Lab Director: Anibal Marquis MD Creatinine [Mass/Vol] 1.7 mg/dL High 0.7-1.2 [facility] Comment on above: Performed By: #### C DP, BMP ####[facility] Xzr1047 [place] [address] Lab Director: Anibal Marquis MD GFR/1.73 sq M.predicted among non-blacks MDRD (S/P/Bld) [Vol rate/Area] 45 mL/min/{1.73_m2} Low >60 [facility] Comment on above: Result Comment: These results are not intended for use in patients <18 years of age. eGFR results are calculated without a race factor using the 2020 CKD-EPI equation. Careful clinical correlation is recommended, particularly when comparing to results calculated using previous equations. The CKD-EPI equation is less accurate in patients with extremes of muscle mass, extra-renal metabolism of creatine, excessive creatine ingestion, or following therapy that affects renal tubular secretion. Performed By: #### C DP, BMP ####[facility] Hrl[address] [place] [address] Lab Director: Anibal Marquis MD Glucose [Mass/Vol] 213 mg/dL High 70-99 [facility] Comment on above: Performed By: #### C DP, BMP ####[facility] Vvz[address] [place] [address] Lab Director: Anibal Marquis MD Potassium [Moles/Vol] 4.3 mmol/L Normal 3.7-5.3 [facility] Comment on above: Performed By: #### C DP, BMP ####[facility] Avm[address] [place], [place] [phone] Director: Anibal Marquis MD Sodium [Moles/Vol] 133 mmol/L Low 135-144 [facility] Comment on above: Performed By: #### C DP, BMP ####[facility] Wyg[address]39 [address] [place], [place] [phone] Director: Anibal Marquis MD Urea nitrogen [Mass/Vol] 15 mg/dL Normal 8-23 [facility] Comment on above: Performed By: #### C DP, BMP ####[facility] Piv[address] [place], [place] [phone] Director: Anibal Marquis MD CBC with Diffon 01-17-2023 Abs. Basophil 0.05 k/uL Normal 0.00-0.20 [facility] Comment on above: Performed By: #### C DP, BMP ####[facility] Rjg[address] [place], [place] [phone] Director: Anibal Marquis MD Abs.Imm.Granulocyte 0.01 k/uL Normal 0.00-0.30 [facility] Comment on above: Performed By: #### C DP, BMP ####[facility] Iqj[address] [place], [place] [phone] Director: Anibal Marquis MD Abs.Neutrophil (Seg) 4.64 k/uL Normal 2.1-6.5 [facility] Comment on above: Performed By: #### C DP, BMP ####[facility] Hht[address]146 [address] [place], [place] [phone] Director: Anibal Marquis MD Basophils/100 WBC (Bld) 1 % Normal 0-2 [facility] Comment on above: Performed By: #### C DP, BMP ####[facility] Yfd4243 [facility] [place] [address] Lab Director: Anibal Marquis MD Eosinophils (Bld) [#/Vol] 0.22 10*3/uL Normal 0.00-0.40 [facility] Comment on above: Performed By: #### C DP, BMP ####[facility] Aye8962 [place] [address] Lab Director: Anibal Marquis MD Eosinophils/100 WBC (Bld) 3 % Normal 0-5 [facility] Comment on above: Performed By: #### C DP, BMP ####[facility] Dlv3111 [place] [address] Lab Director: Anibal Marquis MD Erythrocyte distribution width (RBC) [Ratio] 13.3 % Normal 12.1-15.2 [facility] Comment on above: Performed By: #### C DP, BMP ####[facility] Xul5725 [place] [address] Lab Director: Anibal Marquis MD Hematocrit (Bld) [Volume fraction] 28.9 % Low 41.0-53.0 [facility] Comment on above: Performed By: #### C DP, BMP ####[facility] Wwt1194 [place] [address] Lab Director: Anibal Marquis MD Hemoglobin (Bld) [Mass/Vol] 9.5 g/dL Low 13.5-17.5 [facility] Comment on above: Performed By: #### C DP, BMP ####[facility] Dhn6875 [place] [address] Lab Director: Anbial Marquis MD Immature granulocytes/100 WBC (Bld) 0 % Normal 0-5 [facility] Comment on above: Performed By: #### C DP, BMP ####[facility] Xsq2359 [place] [address] Lab Director: Anibal Marquis MD Lymphocytes (Bld) [#/Vol] 2.45 10*3/uL Normal 1.00-4.80 [facility] Comment on above: Performed By: #### C DP, BMP ####[facility] Xlc3271 [place] [phone] lab Director: Anibal Marquis MD Lymphocytes/100 WBC (Bld) 31 % Normal 13-44 [facility] Comment on above: Performed By: #### C DP, BMP ####[facility] Mdi0757 [place] [address] lab Director: Anibal Marquis MD MCH (RBC) [Entitic mass] 29.6 pg Normal 26.0-34.0 [facility] Comment on above: Performed By: #### C DP, BMP ####[facility] Jjt3752 [place] [phone] lab Director: Anibal Marquis MD MCHC (RBC) [Mass/Vol] 32.9 g/dL Normal 31.0-37.0 [facility] Comment on above: Performed By: #### C DP, BMP ####[facility] Kvr8636 [place] [address] Lab Director: Anibal Marquis MD MCV (RBC) [Entitic vol] 90.0 fL Normal 80.0-100.0 [facility] Comment on above: Performed By: #### C DP, BMP ####[facility] Jwf0710 [place] [address] Lab Director: Anibal Marquis MD Monocytes (Bld) [#/Vol] 0.53 10*3/uL Normal 0.00-1.00 [facility] Comment on above: Performed By: #### C DP, BMP ####[facility] Zof[address] [place] [address] Lab Director: Anibal Marquis MD Monocytes/100 WBC (Bld) 7 % Normal 5-9 [facility] Comment on above: Performed By: #### C DP, BMP ####[facility] Rjs[address] [place], [place] [phone] Director: Anibal Marquis MD Neutrophil (Seg) 59 % Normal 39-75 [facility] Comment on above: Performed By: #### C DP, BMP ####[facility] Agx0466 [address] [place], [place] [phone] Director: Anibal Marquis MD Platelet mean volume (Bld) [Entitic vol] 8.9 fL Normal 6.0-12.0 [facility] Comment on above: Performed By: #### C DP, BMP ####[facility] Vmx9663 [facility] [place] [address] Lab Director: Anibal Marquis MD Platelets (Bld) [#/Vol] 222 10*3/uL Normal 140-450 [facility] Comment on above: Performed By: #### C DP, BMP ####[facility] Dik5688 [facility] [place] [address] Lab Director: Anibal Marquis MD RBC (Bld) [#/Vol] 3.21 10*6/uL Low 4.50-5.90 [facility] Comment on above: Performed By: #### C DP, BMP ####[facility] Jfr[address] [place], [place] [phone] Director: Anibal Marquis MD WBC (Bld) [#/Vol] 7.9 10*3/uL Normal 3.5-11.0 [facility] Comment on above: Performed By: #### C DP, BMP ####[facility] Whr[address] [place] [address] Lab Director: Anibal Marquis MD MRI BRAIN W WO CONTRASTon MRI BRAIN W WO CONTRAST EXAM: MRI BRAIN W WO CONTRAST HISTORY: Slurred speech COMPARISON: None. TECHNIQUE: Multiplanar multisequence imaging of the brain with and without contrast FINDINGS: No acute ischemia. No acute intracranial hemorrhage. Midline structures and the craniocervical junction is within limits of normal. The ventricles and sulci are of normal size shape and position. There is no significant brain parenchymal abnormality. No evidence of abnormal intraparenchymal enhancement. IMPRESSION: No acute intracranial abnormality Interpreted by: Mona Rodriguez DO Signed by: Mona Rodriguez DO 01/17/23 Final result Normal [facility] Nursing Note - Woundon 01-09 Nursing Note - Wound [id number] 1 [id number] 1#2.00TIFF Normal [facility] Progress Note - Woundon 12-09 Progress Note - Wound [id number] 1#2.00TIFF Normal [facility] Consent for Treatmenton 12-09 Consent for Treatment [id number] #1.00TIFF [facility] Nursing Assessment - Woundon 12-26-2022 Nursing Assessment - Wound [id number] 9#1.00TIFF Normal [facility] Physician Orderon 12-26-2022 Physician Order [id number] 3#1.00TIFF [facility] CBC with Diffon 12-20-2022 Abs. Basophil 0.02 k/uL Normal 0.00-0.20 [facility] Comment on above: Performed By: #### B C #### [facility] [address] [place], [place] [phone] [employer] Supervisor: Anibal Marquis MD Abs.Imm.Granulocyte 0.01 k/uL Normal 0.00-0.30 [facility] Comment on above: Performed By: #### B C #### [facility] [address] [place], [place] [phone] [employer] Supervisor: Anibal Marquis MD Abs.Neutrophil (Seg) 5.01 k/uL Normal 2.1-6.5 [facility] Comment on above: Performed By: #### B C #### [facility] [address] [place], [place] [phone] [employer] Supervisor: Anibal Marquis MD Basophils/100 WBC (Bld) 0 % Normal 0-2 [facility] Comment on above: Performed By: #### B C #### [facility] [address] [place] [address] [employer] Supervisor: Anibal Marquis MD Eosinophils (Bld) [#/Vol] 0.19 10*3/uL Normal 0.00-0.40 [facility] Comment on above: Performed By: #### B C #### [facility] [address] [place] [address] [employer] Supervisor: Anibal Marquis MD Eosinophils/100 WBC (Bld) 3 % Normal 0-5 [facility] Comment on above: Performed By: #### B C #### [facility] [address] [place], [place] [phone] [employer] Supervisor: Anibal Marquis MD Erythrocyte distribution width (RBC) [Ratio] 13.5 % Normal 12.1-15.2 [facility] Comment on above: Performed By: #### B C #### [facility] [address] [place] [address] [employer] Supervisor: Anibal Marquis MD Hematocrit (Bld) [Volume fraction] 31.7 % Low 41.0-53.0 [facility] Comment on above: Performed By: #### B C #### [facility] [address] [place], [place] [phone] [employer] Supervisor: Anibal Marquis MD Hemoglobin (Bld) [Mass/Vol] 10.6 g/dL Low 13.5-17.5 [facility] Comment on above: Performed By: #### B C #### [facility] [address] [place] [address] [employer] Supervisor: Anibal Marquis MD Immature granulocytes/100 WBC (Bld) 0 % Normal 0-5 [facility] Comment on above: Performed By: #### B C #### [facility] [address] [place] [address] [employer] Supervisor: Anibal Marquis MD Lymphocytes (Bld) [#/Vol] 1.42 10*3/uL Normal 1.00-4.80 [facility] Comment on above: Performed By: #### B C #### [facility] [address] [place] [address] [employer] Supervisor: Anibal Marquis MD Lymphocytes/100 WBC (Bld) 20 % Normal 13-44 [facility] Comment on above: Performed By: #### B C #### [facility] [address] [place] [address] [employer] Supervisor: Anibal Marquis MD MCH (RBC) [Entitic mass] 29.9 pg Normal 26.0-34.0 [facility] Comment on above: Performed By: #### B C #### [facility] [address] [place] [address] [employer] Supervisor: Anibal Marquis MD MCHC (RBC) [Mass/Vol] 33.4 g/dL Normal 31.0-37.0 [facility] Comment on above: Performed By: #### B C #### [facility] [address] [place] [address] [employer] Supervisor: Anibal Marquis MD MCV (RBC) [Entitic vol] 89.5 fL Normal 80.0-100.0 M [facility] Comment on above: Performed By: #### B C #### [facility] [address] [place] [address] [employer] Supervisor: Anibal Marquis MD Monocytes (Bld) [#/Vol] 0.47 10*3/uL Normal 0.00-1.00 [facility] Comment on above: Performed By: #### B C #### [facility] [address] [place] [address] [employer] Supervisor: Anibal Marquis MD Monocytes/100 WBC (Bld) 7 % Normal 5-9 M [facility] Comment on above: Performed By: #### B C #### [facility] [address] [place] [address] [employer] Supervisor: Anibal Marquis MD Neutrophil (Seg) 70 % Normal 39-75 [facility] Comment on above: Performed By: #### B C #### [facility] [address] [place] [address] [employer] Supervisor: Anibal Marquis MD Platelet mean volume (Bld) [Entitic vol] 9.2 fL Normal 6.0-12.0 [facility] Comment on above: Performed By: #### B C #### [facility] [address] [place] [address] [employer] Supervisor: Anibal Marquis MD Platelets (Bld) [#/Vol] 266 10*3/uL Normal 140-450 [facility] Comment on above: Performed By: #### B C #### [facility] [address] [place] [address] [employer] Supervisor: Anibal Marquis MD RBC (Bld) [#/Vol] 3.54 10*6/uL Low 4.50-5.90 [facility] Comment on above: Performed By: #### B C #### [facility] [address] [place] [address] [employer] Supervisor: Anibal Marquis MD WBC (Bld) [#/Vol] 7.1 10*3/uL Normal 3.5-11.0 [facility] Comment on above: Performed By: #### B C #### [facility] [address] [place] [address] [employer] Supervisor: Anibal Marquis MD Comp Metabolic Profon 2022 Albumin [Mass/Vol] 3.7 g/dL Normal 3.5-5.2 [facility] Comment on above: Performed By: #### B C #### [facility] [address] [place] [address] [employer] Supervisor: Anibal Maqruis MD Alkaline Phos 171 U/L High 40-129 [facility] Comment on above: Performed By: #### B C #### [facility] [address] [place], [place] 0404690 [employer] Supervisor: Anibal Marquis MD ALT [Catalytic activity/Vol] 12 U/L Normal 5-41 [facility] Comment on above: Performed By: #### B C #### [facility] [address] [place] [address] [employer] Supervisor: Anibal Marquis MD Anion gap [Moles/Vol] 12 mmol/L Normal 9-17 [facility] Comment on above: Performed By: #### B C #### [facility] [address] [place] [address] [employer] Supervisor: Anibal Marquis MD AST [Catalytic activity/Vol] 14 U/L Normal <40 [facility] Comment on above: Performed By: #### B C #### [facility] [address] [place], [place] [id number] [employer] Supervisor: Anibal Marquis MD Bilirubin [Mass/Vol] 0.7 mg/dL Normal 0.3-1.2 [facility] Comment on above: Performed By: #### B C #### [facility] [address] [place], [place] 5922790 [employer] Supervisor: Anibal Marquis MD BUN/CRE Ratio 16 Normal 9-20 [facility] Comment on above: Performed By: #### B C #### [facility] [address] [place], [place] 1113190 [employer] Supervisor: Anibal Marquis MD Calcium [Mass/Vol] 9.8 mg/dL Normal 8.6-10.4 [facility] Comment on above: Performed By: #### B C #### [facility] [address] [place], [place] 6702090 [employer] Supervisor: Anibal Marquis MD Chloride [Moles/Vol] 94 mmol/L Low 98-107 [facility] Comment on above: Performed By: #### B C #### [facility] [address] [place] [address] [employer] Supervisor: Anibal Marquis MD CO2 [Moles/Vol] 25 mmol/L Normal 20-31 [facility] Comment on above: Performed By: #### B C #### [facility] [address] [place], [place] 8416090 [employer] Supervisor: Anibal Marquis MD Creatinine [Mass/Vol] 1.5 mg/dL High 0.7-1.2 [facility] Comment on above: Performed By: #### B C #### [facility] [address] [place] [address] [employer] Supervisor: Anibal Marquis MD GFR/1.73 sq M.predicted among non-blacks MDRD (S/P/Bld) [Vol rate/Area] 53 mL/min/{1.73_m2} Low >60 [facility] Comment on above: Result Comment: These results are not intended for use in patients <18 years of age. eGFR results are calculated without a race factor using the 1 CKD-EPI equation. Careful clinical correlation is recommended, particularly when comparing to results calculated using previous equations. The CKD-EPI equation is less accurate in patients with extremes of muscle mass, extra-renal metabolism of creatine, excessive creatine ingestion, or following therapy that affects renal tubular secretion. Performed By: #### B C #### [facility] [address] [place] [address] [employer] Supervisor: Anibal Marquis MD Glucose [Mass/Vol] 334 mg/dL High 70-99 [facility] Comment on above: Performed By: #### B C #### [facility] [address] [place] [address] [employer] Supervisor: Anibal Marquis MD Potassium [Moles/Vol] 4.3 mmol/L Normal 3.7-5.3 [facility] Comment on above: Performed By: #### B C #### [facility] [address] [place] [address] [employer] Supervisor: Anibal Marquis MD Protein [Mass/Vol] 7.7 g/dL Normal 6.4-8.3 [facility] Comment on above: Performed By: #### B C #### [facility] [address] [place] [address] [employer] Supervisor: Anibal Marquis MD Sodium [Moles/Vol] 131 mmol/L Low 135-144 [facility] Comment on above: Performed By: #### B C #### [facility] [address] [place] [address] [employer] Supervisor: Anibal Marquis MD Urea nitrogen [Mass/Vol] 24 mg/dL High 8-23 [facility] Comment on above: Performed By: #### B C #### [facility] [address] [place] [address] [employer] Supervisor: Anibal Marquis MD Sedimentation Rateon 023 Sedimentation Rate 70 mm/Hr High 0-20 [facility] Comment on above: Performed By: #### B C #### [facility] [address] [place] [address] [employer] Supervisor: Anibal Marquis MD Physician Orderon 12-13-2022 Physician Order [id number] 2#1.00CD:127 [facility] Procedure - Woundon 12-14-19 Procedure - Wound [id number] 9#1.00CD:127 [facility] Consent for Treatmenton Consent for Treatment [id number] #1.00CD:127 [facility] Multi-Wound Charton 12-12-19 Multi-Wound Chart [id number] 2#1.00CD:127 [facility] Nursing Assessment - Woundon 12-11-2022 Nursing Assessment - Wound [id number] 9#1.00CD:127 [facility] Nursing Note - Woundon 12-11 Nursing Note - Wound [id number] 4#1.00CD:127 [facility] Consent for Treatmenton 11-10 Consent for Treatment [id number] #1.00CD:127 [facility] Multi-Wound Charton 12-06-19 Multi-Wound Chart [id number] 1#1.00CD:127 [facility] Nursing Assessment - Woundon 12-05-2022 Nursing Assessment - Wound [id number] 4#1.00CD:127 [facility] Nursing Note - Woundon 12-05 Nursing Note - Wound [id number] 4#1.00CD:127 [facility] Physician Orderon 12-05-2022 Physician Order [id number] 3#1.00CD:127 [facility] Procedure - Woundon 12-06-19 Procedure - Wound [id number] 1#1.00CD:127 [facility] Progress Note - Woundon 11-10 Progress Note - Wound [id number] 6#1.00CD:127 [facility] HBOon 11-29-2022 HBO [id number] 8#3.00CD:127 [facility] Physician Orderon 11-29-2022 Physician Order [id number] 7#1.00CD:127 [facility] Consent for Treatmenton 11-10 Consent for Treatment [id number] #1.00CD:127 [facility] Multi-Wound Charton 11-29-19 Multi-Wound Chart [id number] 4#1.00CD:127 [facility] Nursing Assessment - Woundon 11-28-2022 Nursing Assessment - Wound [id number] 5#1.00CD:127 [facility] Nursing Note - Woundon 11-28 Nursing Note - Wound [id number] 0 [id number] 4#1.00CD:127 [facility] Physician Orderon 11-28-2022 Physician Order [id number] 8#1.00CD:127 Normal [facility] Procedure - Woundon 11-29-19 Procedure - Wound [id number] 5#1.00CD:127 Normal [facility] Progress Note - Woundon 11-10 Progress Note - Wound [id number] 5#1.00CD:127 Normal [facility] CHEMISTRYOrdered By: Lab ROP User on 11-26-2022 Glucose [Mass/Vol] 115 mg/dL High 55 - 99 mg/dL [facility] Subsection Comment on above: Result Comment: Oliva hanane Meter POC Username Shona Clark Invalid Interpretation Code [facility] Subsection Sodium [Moles/Vol] 916463648965 mmol/L Invalid Interpretation Code [facility] Subsection Sodium [Moles/Vol] [id number] mmol/L Invalid Interpretation Code [facility] Subsection Glucose [Mass/Vol] 152 mg/dL High 55 - 99 mg/dL [facility] Subsection Comment on above: Result Comment: Oliva hanane Meter POC Username Shona Clark Invalid Interpretation Code [facility] P[facility] Subsection Sodium [Moles/Vol] 365927039110 mmol/L Invalid Interpretation Code [facility] P[facility] Subsection Sodium [Moles/Vol] 281963038 mmol/L Invalid Interpretation Code [facility] POC Subsection Capillary Glucose POCon 11-09 Glucose [Mass/Vol] 115 mg/dL High 55-99 [facility] Comment on above: Result Comment: Oliva hanane Meter Performed By: #### 2 [id number] ####[facility] [address] [place] [address] Glucose [Mass/Vol] 152 mg/dL High 55-99 [facility] Comment on above: Result Comment: Oliva hanane Meter Performed By: #### 2 [id number] #### [facility] [address] [place] [address] Nursing Note - Woundon 11-26 Nursing Note - Wound [id number] 0 [id number] 1#2.00CD:127 Normal [facility] CHEMISTRYOrdered By: Lab ROP User on 11-21-2022 Glucose [Mass/Vol] 307 mg/dL High 55 - 99 mg/dL [facility] POC Subsection Comment on above: Result Comment: Oliva hanane Meter POC Username Shona Clark Invalid Interpretation Code [facility] POC Subsection Sodium [Moles/Vol] 042430272024 mmol/L Invalid Interpretation Code [facility] POC Subsection Sodium [Moles/Vol] 989847336 mmol/L Invalid Interpretation Code [facility] POC Subsection Capillary Glucose POCon 11-09 Glucose [Mass/Vol] 307 mg/dL High 55-99 [facility] Comment on above: Result Comment: Oliva hanane Meter Performed By: #### 2 [id number] #### [facility] [address] [place] [address] Consent for Treatmenton 11-09 Consent for Treatment [id number] 30 [id number] #1.00CD:127 [facility] Correspondence - Woundon Correspondence - Wound [id number] 309 [id number] 8#1.00CD:127 [facility] Multi-Wound Charton 11-22-19 23 Multi-Wound Chart [id number] 7#1.00CD:127 [facility] Nursing Assessment - Woundon 11-21-2022 Nursing Assessment - Wound [id number] 0#1.00CD:127 [facility] Nursing Note - Woundon 11-21 Nursing Note - Wound [id number] 0 [id number] 9#1.00CD:127 [facility] Nursing Note - Wound [id number] 0 [id number] 6#1.00CD:127 [facility] Physician Orderon 11-21-2022 Physician Order [id number] 2#1.00CD:127 Normal [facility] Physician Order [id number] 5#1.00CD:127 Normal [facility] Physician Order [id number] 0#1.00CD:127 Normal [facility] Procedure - Woundon 11-22-19 Procedure - Wound [id number] 9#1.00CD:127 Normal [facility] Progress Note - Woundon 11-09 Progress Note - Wound 170.71.121.117. 30 [id number] 2#1.00CD:127 [facility] Capillary Glucose POCon 11-09 Glucose [Mass/Vol] 229 mg/dL [address] Comment on above: Result Comment: Oliva hanane Meter Performed By: #### 2 [id number] ####[facility] [address] [place] [address] Glucose [Mass/Vol] 229 mg/dL [address] Comment on above: Result Comment: Oliav hanane Meter Performed By: #### 2 [id number] #### [facility] [address] [place] [address] HBOon 11-19-2022 HBO [id number] 1#1.00CD:127 Normal [facility] Nursing Note - Woundon 11-19 Nursing Note - Wound [id number] 0 [id number] 5#1.00CD:127 Normal [facility] Nursing Note - Woundon 11-16 Nursing Note - Wound [id number] 0 [id number] 8#2.00CD:127 Normal [facility] Physician Orderon 11-16-2022 Physician Order [id number] 5#1.00CD:127 Normal [facility] Capillary Glucose POCon Glucose [Mass/Vol] 395 mg/dL High 55-99 [facility] Comment on above: Result Comment: Oliva hanane Meter Performed By: #### 2 [id number] #### [facility] [address] [place] [address] HBOon 11-15-2022 HBO [id number] 3#1.00CD:127 Normal [facility] Capillary Glucose POCon Glucose [Mass/Vol] 253 mg/dL High 55-99 [facility] Comment on above: Performed By: #### 2 [id number] #### [facility] [address] [place] [address] Glucose [Mass/Vol] 198 mg/dL High 55-99 [facility] Comment on above: Performed By: #### 2 [id number] #### [facility] [address] [place] [address] Glucose [Mass/Vol] 128 mg/dL High 55-99 [facility] Comment on above: Result Comment: Oliva hanane Meter Performed By: #### 2 [id number] #### [facility] [address] [place] [address] Glucose [Mass/Vol] 124 mg/dL High 55-99 [facility] Comment on above: Result Comment: Oliva hanane Meter Performed By: #### 2 [id number] #### [facility] [address] [place] [address] Nursing Note - Woundon 11-13 Nursing Note - Wound [id number] 0 [id number] 8#1.00CD:127 Normal [facility] Physician Orderon 11-13-2022 Physician Order [id number] 9#1.00CD:127 Normal [facility] Capillary Glucose POCon Glucose [Mass/Vol] 141 mg/dL High 55-99 [facility] Comment on above: Performed By: #### 2 [id number] #### [facility] [address] [place] [address] Glucose [Mass/Vol] 233 mg/dL [address] Comment on above: Performed By: #### 2 [id number] ####[facility] [address] [place] [address] HBOon 11-09-2022 HBO [id number] 4#1.00CD:127 Normal [facility] HBO [id number] 5#1.00CD:127 Normal [facility] Nursing Note - Woundon 11-09 Nursing Note - Wound [id number] 0 [id number] 7#1.00CD:127 Normal [facility] Capillary Glucose POCon 10-11 Glucose [Mass/Vol] 192 mg/dL [address] Comment on above: Performed By: #### 2 [id number] #### [facility] [address] [place] [address] Glucose [Mass/Vol] 153 mg/dL [address] Comment on above: Result Comment: Oliva hanane Meter Performed By: #### 2 [id number] #### [facility] [address] [place] [address] Nursing Note - Woundon 11-08 Nursing Note - Wound [id number] 0 [id number] 4#1.00CD:127 Normal [facility] Nursing Note - Wound 170.71.860.338.3216 0 [id number] 0#2.00CD:127 Normal [facility] Physician Orderon 11-08-2022 Physician Order [id number] 1#1.00CD:127 Normal [facility] Physician Order [id number] 5#1.00CD:127 Normal [facility] Physician Order [id number] 5#1.00CD:127 Normal [facility] Capillary Glucose POCon - Glucose [Mass/Vol] 169 mg/dL High 55-99 [facility] Comment on above: Performed By: #### 2 [id number] #### [facility] [address] [place] [address] Glucose [Mass/Vol] 145 mg/dL High 55-99 [facility] Comment on above: Performed By: #### 2 [id number] #### [facility] [address] [place] [address] HBOon 11-07-2022 HBO [id number] 6#2.00CD:127 Normal [facility] Nursing Note - Woundon 11-07 Nursing Note - Wound 170.71.029.313.2632 0 [id number] 7#2.00CD:127 Normal [facility] Procedure - Woundon 11-08-19 Procedure - Wound [id number] 7#1.00CD:127 Normal [facility] Capillary Glucose POCon 10-10 Glucose [Mass/Vol] 190 mg/dL High 55-[address] [place] [address] Comment on above: Result Comment: Oliva hanane Meter Performed By: #### 2 [id number] #### [facility] [address] [place] [address] Glucose [Mass/Vol] 141 mg/dL [facility] 55-99 [facility] Comment on above: Performed By: #### 2 [id number] #### [facility] [address] [place] [address] Glucose [Mass/Vol] 111 mg/dL High 55-99 [facility] Comment on above: Performed By: #### 2 [id number] #### [facility] [address] [place] [address] HBOon 11-06-2022 HBO [id number] 4#2.00CD:127 Normal [facility] Multi-Wound Charton 11-07-19 Multi-Wound Chart [id number] 0#1.00CD:127 Normal [facility] Nursing Assessment - Woundon 11-06-2022 Nursing Assessment - Wound [id number] 6#1.00CD:127 Normal [facility] Nursing Note - Woundon 11-06 Nursing Note - Wound 170.71.070.416.8783 0 [id number] 3#2.00CD:127 Normal [facility] Physician Orderon 11-06-2022 Physician Order [id number] 3#1.00CD:127 Normal [facility] Physician Order [id number] 9#1.00CD:127 Normal [facility] Capillary Glucose POCon 10-10 Glucose [Mass/Vol] 215 mg/dL High 55-99 [facility] Comment on above: Performed By: #### 2 [id number] ####[facility] [address] [place] [address] Glucose [Mass/Vol] 169 mg/dL High 55-99 [facility] Comment on above: Performed By: #### 2 [id number] #### [facility] [address] [place] [address] Glucose [Mass/Vol] 102 mg/dL High 55-99 [facility] Comment on above: Performed By: #### 2 [id number] #### [facility] [address] [place] [address] Glucose [Mass/Vol] 98 mg/dL Normal 55-99 [facility] Comment on above: Result Comment: Repe at Test Performed By: #### 2 [id number] ####[facility] [address] [place] [address] Consent for Treatmenton 10-10 Consent for Treatment [id number] 08 [id number] 1#1.00CD:127 Normal [facility] HBOon 11-05-2022 HBO [id number] 1#1.00CD:127 Normal [facility] Nursing Note - Woundon 11-05 Nursing Note - Wound [id number] 0 [id number] 5#1.00CD:127 [facility] Capillary Glucose POCon 10-10 Glucose [Mass/Vol] 148 mg/dL [address] Comment on above: Performed By: #### 2 [id number] #### [facility] [address] [place] [address] Glucose [Mass/Vol] 265 mg/dL [address] Comment on above: Performed By: #### 2 [id number] #### [facility] [address] [place] [address] HBOon 11-02-2022 HBO [id number] 2#1.00CD:127 Normal [facility] Nursing Note - Woundon 11-02 Nursing Note - Wound [id number] 0 [id number] 6#1.00CD:127 Normal [facility] Nursing Note - Wound [id number] 0 [id number] 4#1.00CD:127 Normal [facility] Physician Orderon 11-02-2022 Physician Order [id number] 5#1.00CD:127 [facility] Physician Order [id number] 6#1.00CD:127 Normal [facility] CHEMISTRYOrdered By: SYSTEM SYSTEM on 11-01-2022 Glucose post fast [Mass/Vol] 616 mg/dL Invalid Interpretation Code 55 - 99 mg/dL [facility] Comment on above: Result Comment: Crit ical Result verified by repeat analysis\Critical Result S_GLUF:[id number] Called to DANIKA HERNADEZ AT [facility] by DAVON RUIZ And Read Back For Confirmation at: 11/01/2022 09:57:53 Capillary Glucose POCon 10-10 Glucose Cap >500 Abnormal 55-99 [facility] Comment on above: Performed By: #### 2 [id number] #### [facility] [address] [place] [address] Glucose Cap >500 Abnormal 55-99 [facility] Comment on above: Result Comment: Oliva hanane Meter Performed By: #### 2 [id number] #### [facility] [address] [place] [address] Glu Fastingon 11-01-2022 Glucose [Mass/Vol] 616 mg/dL Abnormal 55-99 [facility] Comment on above: Result Comment: Crit ical Result verified by repeat analysis\Critical Result S_GLUF:[id number] Called to DANIKA HERNADEZ AT [facility] by DAVON RUIZ And Read Back For Confirmation at: 11/01/2022 09:57:53 Performed By: #### 2 [id number] #### [facility] [address] [place] [address] Consent for Procedure/Surger yon 10-31-2022 Consent for Procedure/Surgery [id number] #1.00CD:127 Normal [facility] Consent for Treatmenton 10-10 Consent for Treatment [id number]. [id number] #1.00CD:127 Normal [facility] Correspondence - Woundon Correspondence - Wound [id number] 080 [id number] #1.00CD:127 [facility] Nursing Note - Woundon 10-31 Nursing Note - Wound [id number] 0 [id number] 0#1.00CD:127 [facility] Physician Orderon 10-31-2022 Physician Order [id number] 8#1.00CD:127 [facility] Consent for Treatmenton 10-09 Consent for Treatment [id number] 30 [id number] #1.00CD:127 [facility] Correspondence - Woundon Correspondence - Wound [id number] 308 [id number] 9#1.00CD:127 [facility] Correspondence - Wound [id number] [facility] [id number] 0#1.00CD:127 [facility] Correspondence - Wound [id number] [facility] [id number] 9#1.00CD:127 [facility] Insurance Correspondenceon 0 10-25-2022 Insurance Correspondence [id number] 4#1.00CD:127 [facility] Nursing Assessment - Woundon 10-25-2022 Nursing Assessment - Wound [id number] 4#1.00CD:127 [facility] Nursing Note - Woundon 10-25 Nursing Note - Wound 170.71.396.635.6528 0 [id number] 0#1.00CD:127 [facility] Physician Orderon 10-25-2022 Physician Order [id number] 6#1.00CD:127 [facility] Physician Order [id number] 1#1.00CD:127 [facility] Procedure - Woundon 10-26-19 Procedure - Wound [id number] 0#1.00CD:127 Normal [facility] Progress Note - Woundon 10-09 Progress Note - Wound 170.71.121.117. 30 [id number] 3#1.00CD:127 Normal [facility] XR Chest 2 Viewson XR Chest 2 Views Exam Date/Time: 10/25/2022 11:12 EDT Reason for Exam: clearance for HBOT Report IMPRESSION: Significant clearing of bilateral infiltrates and effusions EXAM: XR Chest 2 Views CLINICAL HISTORY: Shortness of breath clearance for HBOT COMPARISONS: 08/09/[address] from 08/12/2022. FINDINGS: Significant clearing of bilateral opacities and resolving of the previous bilateral effusions which were suggestive of CHF. Minimal increase reticulation at the lung bases may represent chronic change or minimal atelectasis.. No pneumothorax. No focal consolidation. Ordering Provider: Bill Ochoa FINAL REPORT Dictated: 10/25/2022 3:23 pm Godwin Brower MD Signed (Electronic Signature): 10/25/2022 3:23 pm Signed by: Godwin Brower MD Transcribed by: ROSY Technologist: PRESLEY Technical Comments Radiation Dose: Ka,r in mGy = na DAP = na Normal [facility] Insurance Correspondenceon 0 10-18-2022 Insurance Correspondence [id number] #1.00CD:127 Normal [facility] XR Foot 3+ Views Lefton 10-09 XR Foot 3+ Views Left Exam Date/Time: 10/17/2022 13:01 EDT Reason for Exam: WOUND Report IMPRESSION: NO SIGNIFICANT CHANGE EXAM: XR Foot 3+ Views Left DATE: 10/17/2022 12:51 PM INDICATION: Acute left foot pain WOUND COMPARISON: 10/02/2022 FINDINGS: Images obtained through overlying cast which obscures detail somewhat. 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 Exuberant reactive periosteal reaction again seen. Appearance stable. No signs of disease/osteomyeliti s of progression radiographically. Left foot otherwise unremarkable.. Ordering Provider: Zenon Santiago FINAL REPORT Dictated: 10/18/2022 1:12 pm Godwin Brower MD Signed (Electronic Signature): 10/18/2022 1:12 pm Signed by: Godwin Brower MD Transcribed by: ROSY Technologist: NADIA Technical Comments Radiation Dose: Ka,r in mGy = na DAP = na [facility] Consent for Treatmenton Consent for Treatment [id number] 30 [id number] #1.00CD:127 [facility] Consent for Treatment [id number] 30 [id number] #1.00CD:127 [facility] Multi-Wound Charton 10-18-19 Multi-Wound Chart [id number] 9#1.00CD:127 [facility] No Panel InformationOrdered By: Emily Walton on 10-17-2022 GS Occasional Gram Positive [facility] Nursing Assessment - Woundon 10-17-2022 Nursing Assessment - Wound [id number] 2#1.00CD:127 [facility] Nursing Note - Woundon 10-17 Nursing Note - Wound 170.71.945.934.9817 0 [id number] 3#2.00CD:127 [facility] Physician Orderon 10-17-2022 Physician Order [id number] 7#2.00CD:127 [facility] Physician Order [id number] 4#1.00CD:127 [facility] Procedure - Woundon 10-18-19 Procedure - Wound [id number] 5#1.00CD:127 [facility] Progress Note - Woundon Progress Note - Wound 170.71.121.117.202 30 [id number] 0#1.00CD:127 [facility] Consent for Treatmenton Consent for Treatment [id number] 30 [id number] #1.00CD:127 [facility] Multi-Wound Charton 10-16-19 Multi-Wound Chart [id number] [id number] 9#1.00CD:127 [facility] Nursing Note - Woundon 10-15 Nursing Note - Wound 170.71.261.407.0853 0 [id number] 3#1.00CD:127 [facility] Physician Orderon 10-15-2022 Physician Order [id number] 6#1.00CD:127 [facility] Procedure - Woundon 10-16-19 Procedure - Wound [id number] [id number] 8#1.00CD:127 [facility] Consent for Procedure/Surger yon 10-10-2022 Consent for Procedure/Surgery [id number] 6#1.00CD:127 [facility] Consent for Treatmenton Consent for Treatment [id number] 30 [id number] #1.00CD:127 [facility] Multi-Wound Charton 10-11-19 Multi-Wound Chart [id number] 9#1.00CD:127 [facility] Nursing Assessment - Woundon 10-10-2022 Nursing Assessment - Wound [id number] [id number] 7#1.00CD:127 [facility] Nursing Note - Woundon 10-10 Nursing Note - Wound 170.71.208.910.6895 0 [id number] 1#1.00CD:127 [facility] Physician Orderon 10-10-2022 Physician Order [id number] 0#1.00CD:127 [facility] Procedure - Woundon 10-11-19 Procedure - Wound [id number] [id number] 0#1.00CD:127 [facility] Progress Note - Woundon Progress Note - Wound 170.71.121.117.202 30 [id number] 3#1.00CD:127 [facility] Discharge Instructionson Discharge Instructions [id number] 307 [id number] 1#1.00CD:127 [facility] Insurance Correspondence Off iceon 10-04-2022 Insurance Correspondence Office [id number] #1.00CD:127 [facility] CHEMISTRYOrdered By: Carlos Hill on 10-03-2022 POC Device SN [id number] Invalid Interpretation Code [facility] POC Subsection POC User ID [id number] Invalid Interpretation Code [facility] POC Subsection POC Username AUSTIN CURRIE Invalid Interpretation Code [facility] POC Subsection Capillary Glucose POCOrdered By: Carlos Billingsely on 10-03-2022 Glucose [Mass/Vol] 222 mg/dL High 55-99 [facility] P OC Subsection Comment on above: Result Comment: Luna webb RN/ Performed By: #### 2 [id number] #### [facility] [address] [place] [address] Inpatient Clinical Summaryon 10-03-2022 Inpatient Clinical Summary [address] [address] Clinical Summary Person Information: Name: JILLIAN LITTLE Age: 62 Years : 1960 Sex: Male PCP: SARA LESTER DO Marital Status: Race: White Ethnicity: Non- or Language: Namibian Visit Id: Visit Reason: LEFT FOOT WOUND Speciality: Acuity: Enc Type: Observation Med Service: Medical Arrival: 10/02/2022 09:25:11 Discharge: Dispo Type: Admitted as IP to this Hosp Address: [address] [place] [id number] Provider Notes: Diagnosis: 1:Chronic GERD; 2:HTN (hypertension); 3:diabetes; 4:HLD (hyperlipidemia); 5:Diabetic foot ulcer; 6:Hyperlipidemia; Non-pressure chronic ulcer of other part of unspecified foot with unspecified severity Problems Active Diabetic foot ulcer HLD (hyperlipidemia) Anemia diabetes HTN (hypertension) Hyperlipidemia Chronic GERD Smoking Status: Former Smoker Functional Status: Sensory Deficits: History of Falls: Mobility Assistance Prior to Admission: Independent ADLs: Independent Current Level of Assistance for Self-Care/Mobility: Cognitive Status: Oriented x 3 Allergies No Known Allergies Measurements: Height: 175.26 cm Weight: 90.3 kg Blood Pressure: 113 mmHg / 72 mmHg BMI: 30.02 kg/m2 Procedures No Procedures Documented Immunizations No Immunizations Documented This Visit Final Med List: acetaminophen-hydroc odone (Randolph 325 mg-5 mg oral tablet) 1 Tablets By Mouth every 6 hours as needed for pain. Refills: 0. amitriptyline (amitriptyline 25 mg Tab) 1 Tablets By Mouth once a day (at bedtime). TAKE 1 TABLET BY MOUTH NIGHTLY.. atorvastatin (atorvastatin 40 mg Tab) 1 Tablets By Mouth every day. TAKE 1 TABLET BY MOUTH EVERY DAY. buPROPion (buPROPion 150 mg/24 hours XL Tab) 1 Tablets By Mouth every day. cholecalciferol (cholecalciferol 1000 intl units (25 mcg) oral tablet) 1 Tablets By Mouth every day. Refills: 0. cyanocobalamin (cyanocobalamin 1000 mcg Tab) 1 Tablets By Mouth every day. Refills: 0. cyclobenzaprine (Flexeril 10 mg Tab) 1 Tablets By Mouth 3 times a day. Take one by mouth three times a day. Refills: 0. diphenhydrAMINE (Benadryl 25 mg Cap) 1 Capsules By Mouth 2 times a day. duloxetine (duloxetine 60 mg oral delayed release capsule) 1 Capsules By Mouth every day. TAKE 1 CAPSULE BY MOUTH EVERY DAY. esomeprazole (Nexium 40 mg Cap-EC) By Mouth every day. ferrous sulfate (ferrous sulfate 325 mg Tab) 1 Tablets By Mouth 3 times a day. Refills: 0. fluticasone-salmeter ol (Advair Discus 100 mcg-50 mcg Powder) 1 Puffs Inhalation 2 times a day. glimepiride (glimepiride 4 mg Tab) 1 Tablets By Mouth 2 times a day. Refills: 0. insulin glargine (insulin glargine 100 units/mL SubQ Ana 10 mL) 20 Units Subcutaneous at bedtime. Refills: 0. insulin lispro (Insulin Lispro KwikPen 100 units/mL injectable solution) Check BS QID AC, HS Take 2 units of lispro if BS between 151-200 Take 4 units of lispro if BS between 201-250 Take 6 units of lispro if BS between 251-300 Take 8 units of lispro if BS between 301-350 Take 10 units of lispro if BS between 351-400 Take 14 units of lispro if BS between >400 Total maximum dose per day is 56 units. Refills: 0. metformin (metformin 500 mg ER Tab) 1 Tablets By Mouth at bedtime. Refills: 0. metformin (metformin 750 mg ER Tab) 1 Tablets By Mouth 2 times a day. Refills: 0. metoprolol (metoprolol 25 mg ER Tab) 0.5 Tablets By Mouth every day. Refills: 0. Misc Prescription (glucometer, matching strips and lancets, insulin pen and needles, alcohol swabs) 0. 30 day supply. Refills: 0. pregabalin (pregabalin 75 mg Cap) 1 By Mouth 3 times a day. TAKE 1 CAPSULE BY MOUTH THREE TIMES DAILY. repaglinide (repaglinide 1 mg Tab) 1 Tablets By Mouth before meals. Refills: 0. ropinirole (ropinirole 1 mg Tab) 3 Tablets By Mouth at bedtime. TAKE 3 TABLETS BY MOUTH NIGHTLY. simvastatin (Zocor 40 mg Tab) 1 Tablets By Mouth once a day (at bedtime). sitagliptin (Januvia 100 mg Tab) 1 Tablets By Mouth every day. Care Team Members: Attending Physician: Anthony Mansfield MD Consulting Physician: Referring Physician: Follow up: With: Address: When: Zenon Santiago [facility]: [place] [facility] [place] [address] [place] [address], [place] [address] In 1 week 10/10/2022 With: Address: When: [address] [place] [address] Business (1) Type Location Start Finish State Secured Appointment Type Secured Location 10/10/2022 9:45 AM 10/10/2022 10:30 AM Confirmed Patient Education Information: Normal [facility] Inpatient Patient Summaryon 10-03-2022 Inpatient Patient Summary JILLIAN LITTLE :1960 Visit Date:10/02/2022 Inpatient Discharge Instructions Your Care Team Admitting Physician - Shyla MCGILL, Anthony Reason for Your Visit swelling and drainage R foot Your Diagnosis Chronic GERD HTN (hypertension) diabetes HLD (hyperlipidemia), Hyperlipidemia Diabetic foot ulcer Non-pressure chronic ulcer of other part of unspecified foot with unspecified severity Tests Performed Automated Diff Blood Culture Charcoal -- Results Pending -- BMP -- Results Pending -- Capillary Glucose POC CBC w/ Auto Diff -- Results Pending -- CMP eGFR Ferritin Iron Level Lactic Acid Magnesium Level -- Results Pending -- PT & PTT TIBC Calculated Troponin US PVR Lower EXT Complete Bilat XR Foot 3+ Views Left Please visit your patient portal for your results or contact your primary care physician. This Is Your Medications List [facility] Prescription (glucometer, matching strips and lancets, insulin pen and needles, alcohol swabs) acetaminophen-hydroc odone (Randolph 325 mg-5 mg oral tablet) amitriptyline (amitriptyline 25 mg Tab) atorvastatin (atorvastatin 40 mg Tab) buPROPion (buPROPion 150 mg/24 hours XL Tab) cholecalciferol (cholecalciferol 1000 intl units (25 mcg) oral tablet) cyanocobalamin (cyanocobalamin 1000 mcg Tab) cyclobenzaprine (Flexeril 10 mg Tab) diphenhydrAMINE (Benadryl 25 mg Cap) duloxetine (duloxetine 60 mg oral delayed release capsule) esomeprazole (Nexium 40 mg Cap-EC) ferrous sulfate (ferrous sulfate 325 mg Tab) fluticasone-salmeter ol (Advair Discus 100 mcg-50 mcg Powder) glimepiride (glimepiride 4 mg Tab) insulin glargine (insulin glargine 100 units/mL SubQ Ana 10 mL) insulin lispro (Insulin Lispro KwikPen 100 units/mL injectable solution) metformin (metformin 500 mg ER Tab) metformin (metformin 750 mg ER Tab) metoprolol (metoprolol 25 mg ER Tab) pregabalin (pregabalin 75 mg Cap) repaglinide (repaglinide 1 mg Tab) ropinirole (ropinirole 1 mg Tab) simvastatin (Zocor 40 mg Tab) sitagliptin (Januvia 100 mg Tab) Procedure History hernia repair X 3, Lasik left eye. Discharge Vitals Temperature (Oral) 36.7 ?C Heart Rate (Monitored) 89 Respiratory Rate 17 Blood Pressure 113/72 Weight 90.3 kg What to do next Instructions From Your Doctor Event Name Event Result Discharge Activity Partial weight bearing Discharge Diet(s) Calorie Controlled- 1999 Calorie Diet Wound Care Remove dressing as instructed Pharmacy Information [facility] [place] Previously Scheduled Follow-Up Appointments Saturday 9:45 AM EDT With: Zenon Santiago DPM Where: [facility] New Follow Up Appointments after Discharge Follow Up with Zenon Santiago When: 10/10/2022 09:45 AM EDT Comments: Wound clinic Where: [facility]: c/o [address] [place] [address]- Follow Up with SARA LESTER When: In 0 days Where: [address] [place] [address]- Business (1) Medications What How Much When Why Instructions Next Dose Unchanged acetaminophen-hydroc odone (Randolph 325 mg-5 mg oral tablet) 1 Tablets By Mouth Every 6 hours as needed for for pain Ultraviolet keratitis of both eyes resume Unchanged amitriptyline (amitriptyline 25 mg Tab) 1 Tablets By Mouth Once a day (at bedtime) TAKE 1 TABLET BY MOUTH NIGHTLY. resume Unchanged atorvastatin (atorvastatin 40 mg Tab) 1 Tablets By Mouth Every day TAKE 1 TABLET BY MOUTH EVERY DAY resume Unchanged buPROPion (buPROPion 150 mg/ 24 hours XL Tab) 1 Tablets By Mouth Every day resume Unchanged cholecalciferol (cholecalciferol 1000 intl units (25 mcg) oral tablet) 1 Tablets By Mouth Every day resume Unchanged cyanocobalamin (cyanocobalamin 1000 mcg Tab) 1 Tablets By Mouth Every day resume Unchanged cyclobenzaprine (Flexeril 10 mg Tab) 1 Tablets By Mouth 3 times a day Take one by mouth three times a day resume Unchanged diphenhydrAMINE (Benadryl 25 mg Cap) 1 Capsules By Mouth 2 times a day resume Unchanged duloxetine (duloxetine 60 mg oral delayed release capsule) 1 Capsules By Mouth Every day TAKE 1 CAPSULE BY MOUTH EVERY DAY resume Unchanged esomeprazole (Nexium 40 mg Cap-EC) By Mouth Every day resume Unchanged ferrous sulfate (ferrous sulfate 325 mg Tab) 1 Tablets By Mouth 3 times a day resume Unchanged fluticasone-salmeter ol (Advair Discus 100 mcg-50 mcg Powder) 1 Puffs Inhalation 2 times a day resume Unchanged glimepiride (glimepiride 4 mg Tab) 1 Tablets By Mouth 2 times a day resume Unchanged insulin glargine (insulin glargine 100 units/ mL SubQ Ana 10 mL) 20 Units Subcutaneous At bedtime resume Unchanged insulin lispro (Insulin Lispro KwikPen 100 units/ mL injectable solution) See instructions Check BS QID AC, HS Take 2 units of lispro if BS between 151-200 Take 4 units of lispro if BS between 201-250 Take 6 units of lis (more content not included)... Normal [facility] Inpatient Patient Summary [place] [address] Patient Discharge Instructions PERSON INFORMATION Name: JILLIAN LITTLE Date of : 1960 Current Date: 10/03/2022 10:40:10 PHYSICIANS Admitting Physician: Anthony Mansfield MD Primary Care Physician: SARA LESTER DO PCP Comment: Discharge Diagnosis: 1:Chronic GERD; 2:HTN (hypertension); 3:diabetes; 4:HLD (hyperlipidemia); 5:Diabetic foot ulcer; 6:Hyperlipidemia; Non-pressure chronic ulcer of other part of unspecified foot with unspecified severity Condition at Discharge: JILLIAN LITTLE has been given the following list of follow-up instructions, prescriptions, and patient education materials: PATIENT FOLLOW-UP INFORMATION Diet: Calorie Controlled- 2000 Calorie Diet Discharge Activity: Partial weight bearing Discharge Restrictions: Wound Care Instructions: Remove dressing as instructed Remove Your Dressing In Days Call Your Doctor For: IF UNABLE TO CONTACT YOUR PHYSICIAN AND YOU FEEL IT IS AN EMERGENCY, GO TO THE NEAREST EMERGENCY ROOM OR CALL 911 Home Treatment: Devices/Equipment: Cane Special Services: Additional Instructions: Primary Care Physician to provide the following pending test results: Follow up: With: Address: When: Zenon Pamela [facility]: [place] [facility] [place] [address] [place] [address], [place] [address] In 1 week 10/10/2022 With: Address: When: SARA LESTER [address] [place], [place] [address] [address] [facility] () In the event that this physician does not participate in your insurance network, please consult with your insurance company to find a nearby participating provider. Type Location Start Finish State Secured Appointment Type Secured Location 10/10/2022 9:45 AM 10/10/2022 10:30 AM Confirmed Comment: KATHARINA Posadas WESLEY E, have received the attached patient education materials/instructio ns and have verbalized understanding: Patient Signature Date Clinican/Nurse Signature Date HERE ARE THE MEDICATION CHANGES THAT OCCURRED DURING YOUR HOSPITAL STAY Medications to Continue with No Changes Other Medications acetaminophen-hydroc odone (Randolph 325 mg-5 mg oral tablet) 1 Tablets By Mouth every 6 hours as needed for pain. Refills: 0. Last Dose: Next Dose: amitriptyline (amitriptyline 25 mg Tab) 1 Tablets By Mouth once a day (at bedtime). TAKE 1 TABLET BY MOUTH NIGHTLY.. Last Dose: Next Dose: atorvastatin (atorvastatin 40 mg Tab) 1 Tablets By Mouth every day. TAKE 1 TABLET BY MOUTH EVERY DAY. Last Dose: Next Dose: buPROPion (buPROPion 150 mg/24 hours XL Tab) 1 Tablets By Mouth every day. Last Dose: Next Dose: cholecalciferol (cholecalciferol 1000 intl units (25 mcg) oral tablet) 1 Tablets By Mouth every day. Refills: 0. Last Dose: Next Dose: cyanocobalamin (cyanocobalamin 1000 mcg Tab) 1 Tablets By Mouth every day. Refills: 0. Last Dose: Next Dose: cyclobenzaprine (Flexeril 10 mg Tab) 1 Tablets By Mouth 3 times a day. Take one by mouth three times a day. Refills: 0. Last Dose: Next Dose: diphenhydrAMINE (Benadryl 25 mg Cap) 1 Capsules By Mouth 2 times a day. Last Dose: Next Dose: duloxetine (duloxetine 60 mg oral delayed release capsule) 1 Capsules By Mouth every day. TAKE 1 CAPSULE BY MOUTH EVERY DAY. Last Dose: Next Dose: esomeprazole (Nexium 40 mg Cap-EC) By Mouth every day. Last Dose: Next Dose: ferrous sulfate (ferrous sulfate 325 mg Tab) 1 Tablets By Mouth 3 times a day. Refills: 0. Last Dose: Next Dose: fluticasone-salmeter ol (Advair Discus 100 mcg-50 mcg Powder) 1 Puffs Inhalation 2 times a day. Last Dose: Next Dose: glimepiride (glimepiride 4 mg Tab) 1 Tablets By Mouth 2 times a day. Refills: 0. Last Dose: Next Dose: insulin glargine (insulin glargine 100 units/mL SubQ Ana 10 mL) 20 Units Subcutaneous at bedtime. Refills: 0. Last Dose: Next Dose: insulin lispro (Insulin Lispro KwikPen 100 units/mL injectable solution) Check BS QID AC, HS Take 2 units of lispro if BS between 151-200 Take 4 units of lispro if BS between 201-250 Take 6 units of lispro if BS between 251-300 Take 8 units of lispro if BS between 301-350 Take 10 units of lispro if BS between 351-400 Take 14 units of lispro if BS between >40 (more content not included)... [facility] Interdisciplinary Note - Harpreet e Manageron 10-03-2022 Interdisciplinary Note - Curator Of Collections Pt is awake and alert in bed, previously rounded with Dr. Mansfield and aware of plan to DC home today at bedside and will transport at DC. PCP verified and insurance information reviewed and DME discussed. Declines any concerns or DC needs. Contact information provided and white board updated. Observation status reviewed, WEEKS form reviewed with pt and original provided. [facility] Comment on above: Result Comment: Elec tronically Signed By: Abe ARCHIBALD, Rachana\.br\Date and Time Signed: 10/03/22 10:22 EDT Message from Medicareon 09-09 Message from Medicare [id number] 07 [id number] #1.00CD:127 [facility] Physician Orderon 10-03-2022 Physician Order [id number] 6#1.00CD:127 [facility] Progress Note-Physicianon Progress Note-Physician Patient: JILLIAN LITTLE Age: 62 years Sex: Male : 1960 Associated Diagnoses: None Author: Zenon Santiago DPM Subjective Chief complaint 10/02/2022 13:50 EDT swelling and drainage R foot 10/02/2022 9:30 EDT Snet from wound clinnic for possible infection of left foot. Denies fever and chills. . pt seen bedside this am he is doing well with no signs of infection based on labs, clinical exam pvrs were good. pt can be discharged today. Health Status Allergies: Allergic Reactions (Selected) No Known Allergies Problem list: All Problems Anemia / SNOMED CT 315318519 / Confirmed At risk for falls / SNOMED CT 593884481 / Possible Problem added when Risk for Falls Careplan was initiated. diabetes / SNOMED CT 520947273 / Confirmed Diabetic foot ulcer / SNOMED CT 1754051883 / Confirmed Chronic GERD / SNOMED CT 064978439 / Confirmed HTN (hypertension) / ICD-9-CM 401.9 / Confirmed Hyperlipidemia / SNOMED CT 10263227 / Confirmed HLD (hyperlipidemia) / SNOMED CT 43425434 / Confirmed Objective vasc: dp/pt palpable no erythema or edema present no proximal streaking noted overall progressing well derm: wound periwound more than likely reaction to foam dressing around the wound deramtitis wound is to the deep exposed fat layer. wound has mild periwound erythema no edema noted does not probe or undermine wound bed to deep exposed fat layer no malodor or purulence noted overall progressing well no proximal streaking noted Impression and Plan Pt is diabetic with chronic wound to the level of deep exposed fat layer, there are no signs of infection pt can be discharged today with remaining wound care supplies instructed for to change. applied aquacel ag to wound gauze abd kerlix and tubidgrip she can change every other and will see in wound care next week Normal [facility] Comment on above: Result Comment: Elec tronically Signed By: Pamela HECK, Zenon Altamirano\.br\Date and Time Signed: 10/03/22 09:21 EDT Auto Diffon 10-02-2022 Basophils/100 WBC (Bld) 1.0 % Normal 0.0-2.0 [facility] Comment on above: Order Comment: Order Added by Discern Expert. Performed By: #### 1 [id number], 14838140, 2405874, 4801917, 36753113, 7283038, 5867704, 4543447, 0162137, 8040788 ####[facility] [address] [place] [address] Basophils/Leukocytes Auto (Bld) [Pure # fraction] 0.1 E9/L Normal 0.0-0.2 [facility] Comment on above: Order Comment: Order Added by Discern Expert. Performed By: #### 1 2906616, 34855794, 4760424, 5700465, 40620738, 7784049, 6094314, 5120136, 2664857, 5528776 ####[facility] [address] [place] [address] Eosinophils/100 WBC (Bld) 3.3 % Normal 0.0-8.0 [facility] Comment on above: Order Comment: Order Added by Discern Expert. Performed By: #### 1 9676210, 29125356, 2255641, 4271695, 10699967, 3802125, 4751623, 9757490, 2725232, 8250275 ####[facility] [address] [place] [address] Eosinophils/Leukocytes Auto (Bld) [Pure # fraction] 0.2 E9/L Normal 0.0-0.5 [facility] Comment on above: Order Comment: Order Added by Discern Expert. Performed By: #### 1 3668735, 59835256, 4502641, 4970466, 27509025, 0240061, 4662370, 8648742, 1707649, 4794346 ####[facility] [address] [place] [address] Lymphocytes/100 WBC (Bld) 33.0 % Normal 14.0-50.0 [facility] Comment on above: Order Comment: Order Added by Discern Expert. Performed By: #### 1 8821920, 45614511, 6485163, 9270140, 18956046, 1323293, 6431063, 0712146, 1926041, 8922581 ####[place] [address] [place] [address] Lymphocytes/Leukocytes Auto (Bld) [Pure # fraction] 1.9 E9/L Normal 1.0-4.0 [facility] Comment on above: Order Comment: Order Added by Discern Expert. Performed By: #### 1 0916349, 08057420, 2877602, 6196820, 78979601, 9933963, 8448674, 8297766, 4747843, 8226720 ####[place] [address] [place] [address] Monocytes/100 WBC (Bld) 6.4 % Normal 4.0-14.0 [facility] Comment on above: Order Comment: Order Added by Discern Expert. Performed By: #### 1 4489067, 87947661, 9492974, 6601695, 03480771, 0173567, 9311051, 4473468, 5924679, 9141026 ####[facility] [address] [place] [address] Monocytes/Leukocytes Auto (Bld) [Pure # fraction] 0.4 E9/L Normal 0.2-1.0 [facility] Comment on above: Order Comment: Order Added by Discern Expert. Performed By: #### 1 0307106, 47071914, 6121606, 2009256, 72372887, 8743150, 6400641, 5471406, 6059021, 8401794 ####[place] [address] [place] [address] Neutrophils/100 WBC (Bld) 56.3 % Normal 36.0-75.0 [facility] Comment on above: Order Comment: Order Added by Discern Expert. Performed By: #### 1 8610113, 25613602, 6348695, 1436712, 88053340, 0484068, 5083012, 3880880, 5508675, 4580969 ####[facility] [address] [place] [address] Neutrophils/Leukocytes Auto (Bld) [Pure # fraction] 3.2 E9/L Normal 2.0-7.5 [facility] Comment on above: Order Comment: Order Added by Discern Expert. Performed By: #### 1 1900177, 24732902, 1566584, 1994527, 62866539, 1938812, 9147898, 6142947, 4025669, 8023177 ####[facility] [address] [place] [address] CBC w/ Auto Diffon 3 Erythrocyte distribution width (RBC) [Ratio] 15.3 % High 10.9-14.2 [facility] Comment on above: Performed By: #### 1 4775836, 12363404, 2616033, 6576304, 14005201, 6387009, 3410033, 7351544, 3009372, 9668577 ####[facility] [address] [place] [address] Hematocrit (Bld) [Volume fraction] 37.2 % Low 37.7-49.0 [facility] Comment on above: Performed By: #### 1 3899418, 38159363, 3591551, 2562234, 27982116, 8047939, 2381082, 3854197, 9568631, 2938973 ####[facility] [address] [place] [address] Hemoglobin (Bld) [Mass/Vol] 12.6 g/dL Low 13.5-17.5 [facility] Comment on above: Performed By: #### 1 0713547, 07294791, 3103083, 7399753, 57020644, 1093329, 4974468, 3144265, 7757117, 3549751 ####[facility] [address] [place] [address] MCH (RBC) [Entitic mass] 30.1 pg Normal 27.0-34.0 [facility] Comment on above: Performed By: #### 1 1582331, 71409022, 9774819, 3712288, 41906607, 7997548, 3425796, 0706840, 0937787, 2048662 ####[facility] [address] [place] [address] MCHC (RBC) [Mass/Vol] 34.0 g/dL Normal 31.4-36.0 [facility] Comment on above: Performed By: #### 1 1153954, 50670509, 8968049, 5684590, 22219865, 1023221, 1378688, 4542427, 9753578, 1317536 ####[place] [address] [place] [address] MCV (RBC) [Entitic vol] 88.5 fL Normal 80.0-100.0 [facility] Comment on above: Performed By: #### 1 5063731, 68771152, 4439771, 2356966, 44654248, 9526962, 4080578, 4307600, 6508226, 2144318 ####[facility] [address] [place] [address] Platelet mean volume (Bld) [Entitic vol] 7.7 fL Normal 6.4-10.8 [facility] Comment on above: Performed By: #### 1 6178082, 50764628, 3666488, 6428402, 89032596, 1717361, 2218364, 6659530, 6249791, 8247446 ####[facility] [address] [place] [address] Platelets (Bld) [#/Vol] 268.0 E9/L Normal 150.0-500.0 [facility] Comment on above: Performed By: #### 1 3943271, 27392300, 0930664, 6425721, 24033046, 2974829, 9942452, 6305567, 7667889, 9327526 ####[address] [address] RBC (Bld) [#/Vol] 4.2 E12/L Low 4.3-5.9 [facility] Comment on above: Performed By: #### 1 9261439, 01875726, 8481002, 1095771, 26390477, 2512010, 6781294, 8388290, 2982084, 1570836 ####[facility] [address] [place] [address] WBC corrected for nucl RBC Auto (Bld) [#/Vol] 5.7 E9/L Normal 4.0-11.0 [facility] Comment on above: Performed By: #### 1 1878592, 60244470, 2125602, 2177951, 60159594, 3555258, 7431663, 6005302, 4374591, 4243944 ####[place] [place] [address] CHEMISTRYOrdered By: Lab ROP User on 10-02-2022 Glucose [Mass/Vol] 305 mg/dL High 55 - 99 mg/dL [facility] POC Subsection Comment on above: Result Comment: Luna webb RN/ POC Device SN [id number] Invalid Interpretation Code [facility] POC Subsection POC User ID [id number] Invalid Interpretation Code [facility] POC Subsection POC Username ELEONORA NOLAND Invalid Interpretation Code [facility] POC Subsection Glucose [Mass/Vol] 277 mg/dL High 55 - 99 mg/dL [facility] POC Subsection Comment on above: Result Comment: Luna webb RN/ POC Device SN [id number] Invalid Interpretation Code [facility] POC Subsection POC User ID [id number] Invalid Interpretation Code [facility] POC Subsection POC Username DINESH FERNANDEZ Invalid Interpretation Code [facility] POC Subsection CHEMISTRYOrdered By: SYSTEM SYSTEM on 10-02-2022 Albumin [Mass/Vol] 4.1 g/dL Normal 3.3 - 5.0 gm/dL [facility] Remisol Albumin/Globulin [Mass ratio] 1.0 {ratio} Low 1.1 - 2.2 [facility] ALP [Catalytic activity/Vol] 127 [iU]/d High 21 - 98 Int._Unit/L [facility] ALT No additional P-5'-P [Catalytic activity/Vol] 23 [iU]/d Normal 6 - 46 Int._Unit/L [facility] Anion gap [Moles/Vol] 15 mmol/L Normal 6 - 16 mEq/L [facility] AST [Catalytic activity/Vol] 25 [iU]/d Normal 5 - 43 Int._Unit/L [facility] Bilirubin [Mass/Vol] 0.7 mg/dL Normal 0.0 - 1 .1 mg/dL [facility] Calcium [Mass/Vol] 9.3 mg/dL Normal 8.9 - 11. 1 mg/dL [facility] Chloride [Moles/Vol] 99 mmol/L Low 101 - 1 11 mmol/L [facility] CO2 [Moles/Vol] 25 mmol/L Normal 21 - 31 mmol/L [facility] Creatinine [Mass/Vol] 1.2 mg/dL Normal 0.5 - 1.3 mg/dL [facility] Ferritin [Mass/Vol] 163 ng/mL Normal 24 - 336 ng/mL [facility] Rem[facility] GFR/1.73 sq M.predicted among non-blacks MDRD (S/P/Bld) [Vol rate/Area] 69 mL/min/1.73 m2 Normal >=59mL/min/ 1.73 m2 [facility] Chem S Globulin (S) [Mass/Vol] 4.1 g/dL High 1.4 - 4.0 gm/dL [facility] Remisol Glucose [Mass/Vol] 326 mg/dL High 55 - 199 mg/dL [facility] Iron [Mass/Vol] 92 ug/dL Normal 35 - 153 mcg/dL [facility] Iron binding capacity [Mass/Vol] 327 ug/dL Normal 250 - 400 mcg/dL [facility] Lactate [Mass/Vol] 2.5 mmol/L High 0.5 - 2.2 mmol/L [facility] Potassium [Moles/Vol] 3.8 mmol/L Normal 3.5 - 5.3 mmol/L [facility] Protein [Mass/Vol] 8.2 g/dL High 6.0 - 7.8 gm/dL [facility] Sodium [Moles/Vol] 135 mmol/L Normal 135 - 145 mmol/L [facility] Transferrin [Mass/Vol] 234 mg/dL Normal 200 - 370 mg/dL [facility] Troponin I.cardiac [Mass/Vol] 5.20 pg/mL Low 15.90 - 38.40 pg/mL [facility] Urea nitrogen [Mass/Vol] 14 mg/dL Normal 5 - 21 mg/dL [facility] Urea nitrogen/Creatinine [Mass ratio] 12 mg/mg Normal 10 - 20 [facility] Rem[facility] CMPon 10-02-2022 Albumin [Mass/Vol] 4.1 g/dL Normal 3.3-5.0 [facility] Comment on above: Performed By: #### 1 4254876, 39469446, 9327964, 0173913, 29519993, 2317047, 8796890, 6360457, 6536860, 5547502 ####[facility] [address] [place] [address] Albumin/Globulin (S) [Mass conc ratio] 1.0 Low 1.1-2.2 [facility] Comment on above: Performed By: #### 1 5752818, 65666826, 6518605, 8016667, 67837269, 1839726, 8165546, 2234310, 6158319, 3004869 ####[facility] [address] [place] [address] ALP [Catalytic activity/Vol] 127 Int._Unit/L High 21-98 [facility] Comment on above: Performed By: #### 1 9843698, 81073129, 5438482, 3857517, 40910476, 2106920, 1972225, 6571041, 9381594, 0256921 ####[facility] [address] [place] [address] ALT No additional P-5'-P [Catalytic activity/Vol] 23 Int._Unit/L Normal 6-46 [facility] Comment on above: Performed By: #### 1 7710660, 02821075, 0672397, 6725857, 56130271, 4827020, 7097908, 5419682, 4929934, 4078477 ####[facility] [address] [place] [address] AST [Catalytic activity/Vol] 25 Int._Unit/L Normal 5-43 [facility] Comment on above: Performed By: #### 1 1232959, 96434949, 1969861, 5785649, 60297933, 1074098, 3193779, 1687272, 3549767, 9576864 ####[facility] [address] [place] [address] Bilirubin [Mass/Vol] 0.7 mg/dL Normal 0.0-1.1 [facility] Comment on above: Performed By: #### 1 0341808, 40533256, 2973598, 4207302, 43325447, 2695524, 4846963, 2361404, 5918954, 5426828 ####[facility] [address] [place] [address] Creatinine [Mass/Vol] 1.2 mg/dL Normal 0.5-1.3 [facility] Comment on above: Performed By: #### 1 3232248, 45232346, 0836029, 7556521, 36081601, 0117169, 7945420, 6507579, 7263771, 6987089 ####[facility] [address] [place] [address] Globulin (S) [Mass/Vol] 4.1 g/dL High 1.4-4.0 [facility] Comment on above: Performed By: #### 1 1075255, 06205524, 6523183, 2083970, 46617617, 9597942, 8504866, 4152649, 0357045, 4310646 ####[facility] [address] [place] [address] Protein [Mass/Vol] 8.2 g/dL High 6.0-7.8 [facility] Comment on above: Performed By: #### 1 6215121, 79368826, 4350630, 1594463, 17496925, 6960636, 9691722, 7393184, 7903400, 7367822 ####[facility] [address] [place] [address] Urea nitrogen [Mass/Vol] 14 mg/dL Normal 5-21 [facility] Comment on above: Performed By: #### 1 2417347, 76901398, 1611251, 0841936, 27230449, 5690407, 9425803, 1569336, 3165017, 2063890 ####[facility] [address] [place] [address] Urea nitrogen/Creatinine [Mass ratio] 12 No Units Normal 10-20 [facility] Comment on above: Performed By: #### 1 3806178, 46939048, 1744756, 7412890, 81341015, 3721197, 1356789, 3286278, 8799977, 2002392 ####[facility] [address] [place] [address] Anion gap [Moles/Vol] 15 mmol/L Normal 6-16 [facility] Comment on above: Performed By: #### 1 7320794, 68724883, [id number], [id number], [id number], 7657533, 5488751, 3121653, 5013327, [id number] ####[facility] [address] [place] [address] Calcium [Mass/Vol] 9.3 mg/dL Normal 8.9-11.1 [facility] Comment on above: Performed By: #### 1 [id number], [id number], 1459247, 1081784, 10045804, 0099772, 6528509, 9893649, 5032978, 9038823 ####[facility] [address] [place] [address] Chloride [Moles/Vol] 99 mmol/L Low 101-111 [facility] Comment on above: Performed By: #### 1 [id number], [id number], 7038200, 8462663, 44731273, 2367156, 8348015, 5598785, 8999350, 6415524 ####[facility] [address] [place] [address] CO2 [Moles/Vol] 25 mmol/L Normal 21-31 [facility] Comment on above: Performed By: #### 1 [id number], 63550758, 1784100, 9668853, 79926177, 6528230, 2154698, 3368533, 7235900, 6410611 ####[facility] [address] [place] [address] Glucose [Mass/Vol] 326 mg/dL High 55-199 [facility] Comment on above: Result Comment: If t his glucose result represents a fasting glucose, interpretation should refer to the following reference range: 55-99 mg/dL Performed By: #### 1 [id number], [id number], 1342278, 0481022, [id number], 9431202, 2309947, 7244676, 7679787, 2389313 ####[facility] [address] [place] [address] Potassium [Moles/Vol] 3.8 mmol/L Normal 3.5-5.3 [facility] Comment on above: Performed By: #### 1 [id number], [id number], 6542668, 1803488, 43034261, 5312325, 6126998, 9277294, 3679230, 2960068 ####[facility] [address] [place] [address] Sodium [Moles/Vol] 135 mmol/L Normal 135-145 [facility] Comment on above: Performed By: #### 1 6002941, [id number], 4865390, 4113694, 89663689, 0564827, 8578672, 5020245, 3626183, 3037084 ####[facility] [address] [place] [address] COAGULATIONOrdered By: Telma Harrison on 10-02-2022 aPTT Coag (PPP) [Time] 31.1 s Normal 25.1 - 36.5 second(s) [facility] Auto Coag INR Coag (PPP) [Relative time] 0.9 {INR} Invalid Interpretation Code [facility] Coag PT Coag (PPP) [Time] 10.3 s Normal 9.4 - 1 2.5 second(s) [facility] Coag Capillary Glucose POCon 09-09 Glucose [Mass/Vol] 305 mg/dL High 55-99 [facility] Comment on above: Result Comment: Luna GILBERT Performed By: #### 2 [id number] #### [facility] [address] [place] [address] Glucose [Mass/Vol] 277 mg/dL High 55-99 [facility] Comment on above: Result Comment: Luna GILBERT Performed By: #### 2 [id number] #### [facility] [address] [place] [address] Glucose [Mass/Vol] 289 mg/dL High 55-99 [facility] Comment on above: Result Comment: Luna GILBERT Performed By: #### 2 [id number] #### [facility] [address] [facility] [place] [address] Consent for Treatmenton 09-09 Consent for Treatment [id number] #1.00CD:127 Normal [facility] Consent for Treatment [id number] #1.00CD:127 Normal [facility] Consultation Noteon 10-03-19 Consultation Note Patient: JILLIAN LITTLE Age: 62 years Sex: Male : 1960 Associated Diagnoses: None Author: Maxim Santiago DPM Subjective Chief complaint 10/02/2022 9:30 EDT Snet from wound clinnic for possible infection of left foot. Denies fever and chills. . This patient was admitted today directly from the emergency department. He is well-known to our practice currently being seen in the wound center. The wound VAC was placed on hold approximately a week ago secondary to maceration. Has developed some erythema the dorsal aspect of the foot secondary to contact dermatitis that appears to be. Does have chronic osteomyelitis. Wound is improving appears to be stable at this point. Health Status Allergies: Allergic Reactions (Selected) No Known Allergies, Allergies (1) Active Reaction No Known Allergies None Documented Current medications: (Selected) Inpatient Medications Ordered Dextrose 50% Soln-IV: 50 mL, Soln-IV, IV Push, Once PRN Blood glucose, Routine, Start date 10/02/22 11:43:00 EDT DuoNeb 2.5 mg-0.5 mg/3 mL Soln-Inh: 3 mL, Soln-Inh, Inhalation, QID PRN Shortness of breath or wheezing, Routine, Start date 10/02/22 11:50:00 EDT Insulin Lispro Sliding Scale: 0-10 Units, Injection-Insulin, SubCutaneous, QIDACHS, NOW, Start date 10/02/22 11:43:00 EDT Lactated Ringers IV Ana 1000 mL 1,000 mL: 1,000 mL, IV, 120 mL/hr, Routine, Start date 10/02/22 11:42:00 EDT, 8.3 hour(s), Total volume (mL): 1,000, 92.2 kg, 2.12, m2 Pantoprazole [address] Tab: 40 mg = 1 tab(s), Tab-DR, Oral, Daily, Routine, Start date 10/03/22 9:00:00 EDT, 10/02/22 11:51:00 EDT atorvastatin 40 mg Tab: 40 mg = 1 tab(s), Tab, Oral, Bedtime, Routine, Start date 10/02/22 21:00:00 EDT, 10/02/22 11:53:00 EDT Prescriptions Prescribed Flexeril 10 mg Tab: 10 mg = 1 tab(s), Oral, TID, Take one by mouth three times a day, # 21 tab(s), Refills(s) 0, 0, Print Requisition Insulin Lispro KwikPen 100 units/mL injectable solution: See Instructions, Check BS QID AC, HS Take 2 units of lispro if BS between 151-200 Take 4 units of lispro if BS between 201-250 Take 6 units of lispro if BS between 251-300 Take 8 units of lispro if BS between 301-350 Take 10 units of lispro if B... Randolph 325 mg-5 mg oral tablet: 1 tab(s), Oral, q6hr for pain, 6 tab(s), Refill(s) 0 cholecalciferol 1000 intl units (25 mcg) oral tablet: 25 mcg = 1 tab(s), Oral, Daily, # 30 tab(s), Refills(s) 0, Pharmacy: [facility], 175.3, cm, 08/09/22 15:05:00 EDT, Height/Length Dosing, 96, kg, 08/09/22 15:05:00 EDT, Weight Dosing cyanocobalamin 1000 mcg Tab: 1,000 mcg = 1 tab(s), Oral, Daily, # 30 tab(s), Refills(s) 0, Pharmacy: [facility], 175.3, cm, 08/09/22 15:05:00 EDT, Height/Length Dosing, 96, kg, 08/09/22 15:05:00 EDT, Weight Dosing ferrous sulfate 325 mg Tab: 325 mg = 1 tab(s), Oral, TID, # 90 tab(s), Refills(s) 0, Pharmacy: [facility], 175.3, cm, 08/09/22 15:05:00 EDT, Height/Length Dosing, 96, kg, 08/09/22 15:05:00 EDT, Weight Dosing glimepiride 4 mg Tab: 4 mg = 1 tab(s), Oral, BID, # 60 tab(s), Refills(s) 0, Pharmacy: [facility], 175.3, cm, 08/09/22 15:05:00 EDT, Height/Length Dosing, 96, kg, 08/09/22 15:05:00 EDT, Weight Dosing glucometer, matching strips and lancets, insulin pen and needles, alcohol swabs: glucometer, matching strips and lancets, insulin pen and needles, alcohol swabs, 30 day supply, Print Requisition, Supply insulin glargine 100 units/mL SubQ Ana 10 mL: 20 unit(s), SubCutaneous, Bedtime, # 15 mL, Refills(s) 0, Pharmacy: [facility], 175.3, cm, 08/09/22 15:05:00 EDT, Height/Length Dosing, 96, kg, 08/09/22 15:05:00 EDT, Weight Dosing metformin 500 mg ER Tab: 500 mg = 1 tab(s), Oral, Bedtime, # 30 tab(s), Refills(s) 0, Pharmacy: [facility], 175.3, cm, 08/09/22 15:05:00 EDT, Height/Length Dosing, 96, kg, 08/09/22 15:05:00 EDT, Weight Dosing metformin 750 mg ER Tab: 750 mg = 1 tab(s), Oral, BID, # 60 tab(s), Refills(s) 0, Pharmacy: [facility], 175.3, cm, 08/09/22 15:05:00 EDT, Height/Length Dosing, 96, kg, 08/09/22 15:05:00 EDT, Weight Dosing metoprolol 25 mg ER Tab: 12.5 mg = 0.5 tab(s), Oral, Daily, # 15 tab(s), Refills(s) 0, Pharmacy: [facility], 175.3, cm, 08/09/22 15:05:00 EDT, Height/Length Dosing, 96, kg, 08/09/22 15:05:00 EDT, Weight Dosing repaglinide 1 mg Tab: 1 mg = 1 tab(s), Oral, TIDAC, # 90 tab(s), Refills(s) 0, Pharmacy: [facility], 175.3, cm, 08/09/22 15:05:00 EDT, Height/Length Dosing, 96, kg, 08/09/22 15:05:00 EDT, Weight Dosing Documented Medications Documented Advair Discus 100 mcg-50 mcg Powder: 1 puff(s), Inhalation, BID, Refill(s) 0 Benadryl 25 mg Cap: 25 mg = 1 cap(s), Oral, BID, Refills(s) 0 Januvia 100 mg Tab: 100 mg = 1 tab(s), Oral, Daily, Refills(s) 0 Nexium 40 mg Cap-EC: Oral, Daily, Refills(s) 0 Zocor 40 mg Tab: 40 mg = 1 tab(s), Oral, Once a day (at bedtime), Refills(s) 0 amitript (more content not included)... Normal [facility] Comment on above: Result Comment: Elec tronically Signed By: Maxim Santiago DPM\.br\Date and Time Signed: 10/02/22 14:05 EDT ED Clinical Summaryon 2022 ED Clinical Summary [place] [id number] ED Clinical Summary Person Information Name: JILLIAN LITTLE/[facility] Age: 62 Years : 1960 Sex: Male Language: Namibian PCP: SARA LESTER DO Marital Status: Visit Id: Visit Reason: LEFT FOOT WOUND Speciality: Acuity: 2 Enc Type: Observation Med Service: Emergency Arrival: 10/02/2022 09:25:11 Discharge: LOS: 000 03:02 Checkin: 10/02/2022 09:25:11 Checkout: 10/02/2022 12:27:57 Dispo Type: Admitted as IP to this [facility] EVENTS: Event Name Event Status Request Date/Time Start Date/Time Complete Date/Time Arrive Complete 10/02/2022 09:25:11 10/02/2022 09:25:11 10/02/2022 09:25:11 Document Home Meds Request 10/02/2022 09:25:11 Triage Complete 10/02/2022 09:25:11 10/02/2022 09:36:55 10/02/2022 09:36:55 X-Ray Complete 10/02/2022 09:28:16 10/02/2022 09:41:14 10/02/2022 10:22:36 EKG Complete 10/02/2022 09:28:16 10/02/2022 09:33:34 Pending Labs Inlab 10/02/2022 09:28:16 Lab Inlab 10/02/2022 09:28:16 Patient Care Request 10/02/2022 09:28:16 RT Request 10/02/2022 09:28:16 Bed Assign Complete 10/02/2022 09:28:27 10/02/2022 09:28:27 10/02/2022 09:28:27 Dr Exam Complete 10/02/2022 09:28:27 10/02/2022 09:28:37 10/02/2022 09:28:37 RN Exam Complete 10/02/2022 09:28:27 10/02/2022 10:06:09 10/02/2022 10:06:09 Registration Complete 10/02/2022 09:28:37 10/02/2022 10:04:44 10/02/2022 10:04:44 Meds Admin Cancel 10/02/2022 09:42:59 10/02/2022 11:33:39 Pending Labs Complete 10/02/2022 09:57:08 10/02/2022 09:57:08 10/02/2022 10:14:20 Lab Complete 10/02/2022 09:57:08 10/02/2022 09:57:08 10/02/2022 10:14:20 Pending Labs Complete 10/02/2022 09:59:09 10/02/2022 09:59:09 10/02/2022 09:59:10 Reg Complete Request 10/02/2022 10:04:44 Pending Labs Complete 10/02/2022 10:05:50 10/02/2022 10:05:50 10/02/2022 10:06:00 Lab Complete 10/02/2022 10:05:50 10/02/2022 10:05:50 10/02/2022 10:06:00 Fall Risk Request 10/02/2022 10:06:10 Pending Labs Request 10/02/2022 10:15:18 Lab Request 10/02/2022 10:15:18 Wet Read Complete 10/02/2022 10:22:36 10/02/2022 10:30:14 10/02/2022 10:30:14 Consult Request 10/02/2022 10:33:26 Hospitalist Consult Request 10/02/2022 10:33:31 Meds Admin Complete 10/02/2022 10:33:31 10/02/2022 11:33:39 Patient Care Request 10/02/2022 11:29:16 Patient Care Request 10/02/2022 11:29:16 Patient Care Request 10/02/2022 11:29:16 Patient Care Request 10/02/2022 11:29:16 Patient Care Request 10/02/2022 11:42:03 Bed Request Request 10/02/2022 11:42:03 Reg Bed Request Request 10/02/2022 11:42:03 Admit Request 10/02/2022 11:42:03 Meds Admin Request 10/02/2022 11:44:02 Patient Care Request 10/02/2022 11:44:02 Meds Admin Request 10/02/2022 11:52:36 RT Tx/ABG Request 10/02/2022 11:52:36 RT Tx/ABG Request 10/02/2022 11:52:37 RT Tx/ABG Request 10/02/2022 11:52:37 Meds Admin Request 10/02/2022 11:53:27 Pending Labs Complete 10/02/2022 11:54:35 10/02/2022 11:54:35 10/02/2022 11:54:36 Pending Labs Cancel 10/02/2022 12:04:10 10/02/2022 12:10:31 Lab Cancel 10/02/2022 12:04:10 10/02/2022 12:10:31 Pending Labs Inlab 10/02/2022 12:11:16 10/02/2022 12:11:16 Lab Inlab 10/02/2022 12:11:16 10/02/2022 12:11:16 Pending Labs Inlab 10/02/2022 12:11:37 10/02/2022 12:11:37 Lab Inlab 10/02/2022 12:11:37 10/02/2022 12:11:37 Inpatient Bed Ready Complete 10/02/2022 12:27:57 10/02/2022 12:27:57 10/02/2022 12:27:57 ADDRESS: [address] [place] [id number] PHYS DOC NOTES: MEDICAL INFORMATION: Prescriptions Given: Medications to Continue with No Changes Other Medications acetaminophen-hydroc odone (Randolph 325 mg-5 mg oral tablet) 1 Tablets By Mouth every 6 hours as needed for pain. Refills: 0. cholecalciferol (cholecalciferol 1000 intl units (25 mcg) oral tablet) 1 Tablets By Mouth every day. Refills: 0. cyanocobalamin (cyanocobalamin 1000 mcg Tab) 1 Tablets By Mouth every day. Refills: 0. cyclobenzaprine (Flexeril 10 mg Tab) 1 Tablets By Mouth 3 times a day. Take one by mouth three times a day. Refills: 0. diphenhydrAMINE (Benadryl 25 mg Cap) 1 Capsules By Mouth 2 times a day. esomeprazole (Nexium 40 mg Cap-EC) By Mouth every day. ferrous sulfate (ferrous sulfate 325 mg Tab) 1 Tablets By Mouth 3 times a day. Refills: 0. fluticasone-salmeter ol (Advair Discus 100 mcg-50 mcg Powder) 1 Puffs Inhalation 2 times a day. glimepiride (glimepiride 4 mg Tab) 1 Tablets By Mouth 2 times a day. Refills: 0. insulin glargine (insulin glargine 100 units/mL SubQ Ana 10 mL) 20 Units Subcutaneous at bedtime. Refills: 0. insulin lispro (Insulin Lispro KwikPen 100 units/mL injectable solution) Check BS QID AC, HS Take 2 units of lispro if BS between 151-200 Take 4 units of lispro if BS between 201-250 Take 6 units of lispro if BS between 251-300 Take 8 units of lispro if BS between 301-350 Take 10 units of lispro if BS between 351-400 Take 14 units of lispro if BS between >400 Total maximum dose per day (more content not included)... Normal [facility] ED Note-Physicianon 10-03-19 ED Note-Physician Basic Information Time Seen: Sakina Bill 10/02/2022 09:28 work-up in the ER has been reviewed and noted. Patient is found to have elevated lactate level Chief Complaint Snet from wound clinnic for possible infection of left foot. Denies fever and chills. History of Present Illness 62 male presents emergency department with left foot wound. 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 He was sent from wound care today because of foul smell emanating from the wound with purulent drainage to the medial aspect of that distal left foot. It was wrapped at that time. Patient has not recently been on antibiotics for this but was just recently in the hospital last month for sepsis secondary to pneumonia did receive Rocephin and Zithromax at that time. Patient does state that he occasionally monitors his blood sugars he has not noticed any deviations from his baseline however family does state that normally he runs between 5 and 700 regardless of what they do with his medications. Patient states he does not feel sick he does not feel like he has fevers nausea vomiting he is noted to be tachycardic here upon presentation to the ER. He reports no pain in the foot. No other aggravating or relieving factors no other associated symptoms no other prior treatments or complaints. Family: Reviewed and noncontributory Social: lives at home Review of systems negative unless otherwise specified in the HPI. Physical Exam Vitals & Measurements T: 36.8 ?C(Oral) HR: 120(Peripheral) RR: 18 BP: 132/83 SpO2: 97% HT: 175.26 cm WT: 92.2 kg BMI: 30.02 General: The patient appears well and in no apparent distress. Patient is resting comfortably on cart. Skin: The left foot is wrapped from wound care therefore I did not take the entire dressing down. There is some redness and ulceration to the medial aspect of the left foot distally with amputation of the great toe previously. There is drainage noted on the fresh bandage as well. No other evidence of cellulitis a sending up the extremity. The dorsum of the foot is swollen. Head: Normocephalic, atraumatic Neck: No JVD Eye: PERRLA, EOMI ENT: Moist mucus membranes Cardiovascular: Tachycardic rate regular rhythm with normal peripheral perfusion Respiratory: No respiratory distress no accessory muscle use no obvious audible wheezing Chest Wall: no deformity Musculoskeletal: Skin exam as described above GI: Soft no obvious distention. No rebound or rigidity. No guarding. No tenderness. Neurological: A&O moves all extremities equal strength and symmetry Psychiatric: Cooperative and appropriate Medical Decision Making MEDICAL DECISION MAKING Number and Complexity of Problems Differential Diagnosis: MDM Data External documents reviewed: My EKG interpretation: in chart if applicable My CT interpretation: in chart if applicable My X-ray interpretation: in chart if applicable My Ultrasound interpretation: Decision rules/scores evaluated: Discussed with: Treatment and Disposition ED Course: Work-up in the ER has been reviewed and noted. Patient was found to have elevated lactate level and tachycardia therefore does meet criteria for sepsis. He is treated here with IV fluids cultures pending started on IV Zosyn and vancomycin. Case will be discussed with the hospitalist for admission. Shared decision making: Code status: Assessment/Plan Diabetic foot ulcer (E11.621: Type 2 diabetes mellitus with foot ulcer) Non-pressure chronic ulcer of other part of unspecified foot with unspecified severity (L97.509: Non-pressure chronic ulcer of other part of unspecified foot with unspecified severity) Sepsis due to cellulitis (L03.90: Cellulitis, unspecified) Sepsis, unspecified organism (A41.9: Sepsis, unspecified organism) Orders: piperacillin-tazobac perez + Sodium Chloride 0.9% intravenous solution 50 mL, 3.375 gram = 1 EA, IV Piggyback, Once, Stop date 10/02/22 10:33:00 EDT, STAT, Start date 10/02/22 10:33:00 EDT, 100 mL/hr, Infuse over 30 minute(s), 10/02/22 10:33:00 EDT Sodium Chloride 0.9% intravenous solution 1,000 mL, 1,000 mL, IV, 1,000 mL/hr, STAT, Start date 10/02/22 9:42:00 EDT, 1 hour(s), Total volume (mL): 1,000, 92.2 kg, 2.12, m2 vancomycin + Sodium Chloride 0.9% intravenous solution 250 mL, Reason for Vancomycin: Acute hospitalization within last year, 1,000 mg = 1 EA, IV Piggyback, Once, Stop date 10/02/22 11:00:00 EDT, Routine, Start date 10/02/22 11:00:00 EDT, Infuse over 60 minute(s) Automated Diff Blood Culture Charcoal Blood Culture Charcoal CBC w/ Auto Diff Comprehensive Metabolic Panel Continuous Pulse Oximetry ECG 12 Lead Adult ED Cardiac Monitoring ED Physician consult Hospitalist for continued care eGFR Extra SST Tube Lactic Acid Lactic Acid Lactic Acid Oxygen Therapy PT & PTT Saline Lock Insert Troponin XR Foot 3+ Views Left Medications Administered Given Sodi (more content not included)... Normal [facility] Comment on above: Result Comment: Elec tronically Signed By: Bill Presley DO\.br\Date and Time Signed: 10/02/22 10:33 EDT ED Patient Education Noteon 10-02-2022 ED Patient Education Note Normal [facility] ED Patient Summaryon 023 ED Patient Summary [place] [id number] Patient Discharge Instructions Person Information Name: JILLIAN LITTLE Age: 62 Years Arrival Date: 10/02/2022 09:25:11 Discharge Diagnosis: 1:Chronic GERD; 2:HTN (hypertension); 3:diabetes; 4:HLD (hyperlipidemia); 5:Diabetic foot ulcer; 6:Hyperlipidemia; Non-pressure chronic ulcer of other part of unspecified foot with unspecified severity Primary Care Physician: SARA LESTER DO Provider Information Primary Provider: Bill Presley DO Advanced Science Manager:None The exam and treatment you received in the Emergency Department were for an urgent problem and are not intended as complete care. It is important that you follow up with a doctor, nurse practitioner, or physician?s retirement assistant for ongoing care. If your symptoms become worse or you do not improve as expected and you are unable to reach your usual health care provider, you should return to the Emergency Department. We are available 24 hours a day. KATHARINA JILLIAN Singh has been given the following list of patient education materials, prescriptions and follow-up instructions: Follow-up Instructions: In the event that this physician does not participate in your insurance network, please consult with your insurance company to find a nearby participating provider. Patient Education Materials: A MESSAGE TO ALL PATIENTS REGARDING OPIOIDS PRESCRIPTION OPIOIDS: WHAT YOU NEED TO KNOW Prescription opioids can be used to help relieve rcwfwryo-dr-sskyvy pain and are often prescribed following a surgery or injury, or for certain health conditions. These medications can be an important part of the treatment but also come with serious risks. It is important to work with your healthcare provider to make sure you are getting the safest, most effective care. WHAT ARE THE RISKS AND SIDE EFFECTS OF OPIOID USE? Prescription opioids carry serious risks of addiction and overdose, especially with prolonged use. An opioid overdose, often marked by slowed breathing, can cause sudden . The use of prescription opioids can have a number of side effects as well, even when taken as directed: ? Tolerance?meaning you might need to take more of the medication for the same pain relief ? Physical dependence?meaning you have symptoms of withdrawal when a medication is stopped ? Increased sensitivity to pain ? Constipation ? Nausea, vomiting, and dry mouth ? Sleepiness and dizziness ? Confusion ? Depression ? Low levels of testosterone that can result in lower sex drive, energy, and strength ? Itching and sweating RISKS ARE GREATER WITH: ? History of drug misuse, substance use disorder, or overdose ? Mental health conditions (such as depression or anxiety) ? Sleep apnea ? Older age (65 years and older) ? Avoid alcohol while taking prescription opioids. Also, unless specifically advised by your health care provider, medications to avoid include: ? Benzodiazepines (such as Xanax or Valium) ? Muscle relaxants (such as Soma or Flexeril) ? Hypnotics (such as Ambien or Lunesta) ? Other prescription opioids KNOW YOUR OPTIONS Talk to your health care provider about ways to manage your pain that don?t involve prescription opioids. Some of these options may actually work better and have fewer risks and side effects. Options may include: ? Pain relievers such as acetaminophen, ibuprofen, and naproxen ? Some medication that are also used for depression or seizures ? Physical therapy and exercise ? Cognitive behavioral therapy, a psychological, goal-directed approach, in which patients learn how to modify physical, behavioral, and emotional triggers of pain and stress. IF YOU ARE PRESCRIBED OPIOIDS FOR PAIN: ? Never take opioids in greater amounts or more often than prescribed. ? Follow up with your primary health care provider. o Work together to create a plan on how to manage your pain. o Talk about ways to help manage your pain that don?t involve prescription opioids. o Talk about any and all concerns and side effects. ? Help prevent misuse and abuse o Never sell or share prescription opioids. o Never use another person?s prescription opioids. ? Store prescription opioids in a secure place and out of reach of others (this may include visitors, children, friends, and family). ? Safely dispose of unused prescription opioids: Find your community drug take-back program or your pharmacy mail-back program, or flush them down the toilet, following guidance from the Food and Drug Administration (www.fda.gov/Drugs/R esourcesForYou). ? Visit www.cdc.gov/drugover dose to learn about the risks of opioids abuse and overdose. ? If you believe you may be struggling with addiction, tell your health home care physical therapist and ask for guidance or call SAMHSA?S National Helpline at 9-767-359-HELP. maría Dent (more content not included)... Normal [facility] Ferritinon 10-02-2022 Ferritin [Mass/Vol] 163 ng/mL Normal 24-336 [facility] Comment on above: Result Comment: NORM ALS MEN <30 YRS 16-132 ng/mL MEN >30 YRS 8-338 ng/mL WOMEN (PREMEN) 6-104 ng/mL WOMEN (POSTMEN) 12-210 ng/mL Performed By: #### 2 [id number] #### [facility] [address] [place] [address] HEMATOLOGYOrdered By: SYSTEM SYSTEM on 10-02-2022 Basophils/100 WBC (Bld) 1.0 % Normal 0.0 - 2.0 % [facility] HemeAutoSS Basophils/Leukocytes Auto (Bld) [Pure # fraction] 0.1 E9/L Normal 0.0 - 0.2 E9/L [facility] HemeAutoSS Eosinophils/100 WBC (Bld) 3.3 % Normal 0.0 - 8.0 % [facility] HemeAutoSS Eosinophils/Leukocytes Auto (Bld) [Pure # fraction] 0.2 E9/L Normal 0.0 - 0.5 E9/L [facility] HemeAutoSS Lymphocytes/100 WBC (Bld) 33.0 % Normal 14.0 - 50.0 % [facility] HemeAutoSS Lymphocytes/Leukocytes Auto (Bld) [Pure # fraction] 1.9 E9/L Normal 1.0 - 4.0 E9/L [facility] HemeAutoSS Monocytes/100 WBC (Bld) 6.4 % Normal 4.0 - 14.0 % [facility] HemeAutoSS Monocytes/Leukocytes Auto (Bld) [Pure # fraction] 0.4 E9/L Normal 0.2 - 1.0 E9/L [facility] Neutrophils/100 WBC (Bld) 56.3 % Normal 36.0 - 75.0 % [facility] Neutrophils/Leukocytes Auto (Bld) [Pure # fraction] 3.2 E9/L Normal 2.0 - 7.5 E9/L [facility] HEMATOLOGYOrdered By: Belinda Mas on 10-02-2022 Erythrocyte distribution width (RBC) [Ratio] 15.3 % High 10.9 - 14.2 % [facility] Hematocrit (Bld) [Volume fraction] 37.2 % Low 37.7 - 49.0 % [facility] Hemoglobin (Bld) [Mass/Vol] 12.6 g/dL Low 13.5 - 17.5 gm/dL [facility] MCH (RBC) [Entitic mass] 30.1 pg Normal 27. 0 - 34.0 pg [facility] MCHC (RBC) [Mass/Vol] 34.0 g/dL Normal 31.4 - 36.0 gm/dL [facility] MCV (RBC) [Entitic vol] 88.5 fL Normal 80.0 - 100.0 fL [facility] Platelet mean volume (Bld) [Entitic vol] 7.7 fL Normal 6.4 - 10.8 fL [facility] Platelets (Bld) [#/Vol] 268.0 E9/L Normal 150. 0 - 500.0 E9/L [facility] RBC (Bld) [#/Vol] 4.2 E12/L Low 4.3 - 5.9 E12/L [facility] WBC corrected for nucl RBC Auto (Bld) [#/Vol] 5.7 E9/L Normal 4.0 - 11.0 E9/L [facility] Ironon 10-02-2022 Iron [Mass/Vol] 92 microgram/dL Normal 35-153 [facility] Comment on above: Performed By: #### 1 [id number], [id number], 1095162, 7684576, 46501748, 0387069, 6427002, 4898008, 5951266, 1610503 ####[facility] [address] [place] [address] Lactic AcidOrdered By: [employer] on 10-02-2022 Lactate [Mass/Vol] 2.3 mmol/L High 0.5-2.2 [facility] R emisol Comment on above: Order Comment: Order added by EKS Rule. (FT_LACTIC_ACID_REFLEX) Adds reflex Lactic Acid 4 hours after initial if result is greater than or equal to 2.0. Performed By: #### 2 [id number] #### [facility] [address] [place] [address] Lactic Acidon 10-02-2022 Lactate [Mass/Vol] 2.5 mmol/L High 0.5-2.2 [facility] Comment on above: Performed By: #### 1 [id number], 17787655, 4344647, 7005657, 48524078, 8085785, 4312916, 0546765, 9152457, 5596727 ####[facility] [address] [place] [address] Monitor Recordon 10-02-2022 Monitor Record [id number] 4#1.00CD:127 Normal [facility] Multi-Wound Charton 10-03-19 Multi-Wound Chart [id number] 4#1.00CD:127 Normal [facility] No Panel InformationOrdered By: ANGPROCESSSERVER MICROBIOLOGY on 10-02-2022 Blood Culture Charcoal No growth at 1 da y. Final to follow at 7 days. [facility] Blood Culture Charcoal No growth at 1 da y. Final to follow at 7 days. [facility] Nursing Note - Woundon 10-02 Nursing Note - Wound [id number] 0 [id number] 2#1.00CD:127 Normal [facility] PT & PTTon 10-02-2022 aPTT Coag (PPP) [Time] 31.1 second(s) Normal 25.1-36.5 [facility] Comment on above: Result Comment: Para meter 15 days - 4 weeks 1 - 5 months 6 - 11 months 1 - 5 years 6 - 10 years 11 - 17 years PTT Mean: 35.4 (27.6-45.6) Mean: 33.5 (24.8-40.7) Mean: 32.4 (25.1-40.7) Mean: 31.6 (24.0-39.2) Mean: 31.6 (26.9-38.7) Mean: 31.0 (24.6-38.4) Pediatric Reference ranges were obtained from a study by Antoine Luna et al. prepared from 1437 samples obtained at 7 different centers using the same coagulation reagent and instrumentation as [facility]. Currently there are no coagulation studies available worldwide for children to 14 days, and no normal ranges. Heparin therapeutic range (represented by Anti-Factor Xa activity of 0.2 - 0.4 U/mL) corresponds to PTT of 56.6 - 109.0 sec. Performed By: #### 1 [id number], [id number], 4759952, 0940458, 99958571, 7723134, 6862784, 6682534, 6811106, 1342178 ####[facility] [address] [place] [address] INR Coag (PPP) [Relative time] 0.9 {INR} Invalid Interpretation Code [facility] Comment on above: Result Comment: INR results are specifically intended to assess patients stabilized on long-term Anticoagulation therapy suggested INR?s ?Less Intensive Anticoagulation? 2.0 ? 3.0 Conventional Range 3.0 ? 4.5 Performed By: #### 1 [id number], 85365157, 7982142, 3455300, 14198771, 3866401, 7657801, 5761776, 4707053, 0700499 ####[facility] [address] [place] [address] PT Coag (PPP) [Time] 10.3 second(s) Normal 9.4-12.5 [facility] Comment on above: Result Comment: 15 d ays - 4 weeks 1 - 5 months 6 -11 months 1 ? 5 years 6 ? 10 years 11 -17 years Mean: 11.2 (9.5 ? 12.6) Mean: 11.0 (9.7 ? 12.8) Mean: 11.0 (9.8 ? 13.0) Mean: 11.3 (9.9 ? 13.4) Mean: 11.7 (10.0 ? 14.6) Mean: 11.8 (10.0 - 14.1) Pediatric Reference ranges were obtained from a study by Antoine Luna et al. prepared from 1437 samples obtained at 7 different centers using the same coagulation reagent and instrumentation as [facility]. Currently there are no coagulation studies available worldwide for children to 14 days, and no normal ranges. Performed By: #### 1 [id number], 93562049, 9270545, 5715642, 31486340, 3798254, 3186451, 5467664, 5433001, 1123120 ####[facility] [address] [place] [address] Progress Note-Nurseon 2022 Progress Note-Nurse Only one liter of NS given per Dr Sakina Maxwell [facility] TIBC Calculatedon 10-02-2022 Iron binding capacity [Mass/Vol] 327 microgram/dL Normal 250-400 [facility] Comment on above: Performed By: #### 2 [id number] #### [facility] [address] [place] [address] Transferrin [Mass/Vol] 234 mg/dL Normal 200-370 [facility] Comment on above: Performed By: #### 2 [id number] #### [facility] [address] [place] [address] Troponinon 10-02-2022 Troponin I.cardiac [Mass/Vol] 5.20 pg/mL Low 15.90-38.40 [facility] Comment on above: Result Comment: The 95% CI (Confidence Interval) PPV (Positive Predictive Value) for myocardial infarction in females is 38 pg/mL, in males 51 pg/mL. The results should be used in conjunction with clinical conditions of myocardial infarction. (Access High Sensitivity Troponin I Instructions For Use, Zan [place], October 2017) Performed By: #### 1 [id number], 08698686, 2168259, 8202156, 15301427, 7108063, 3596237, 6510867, 8140256, 4600455 ####[facility] [address] [place] [address] US PVR Lower EXT Complete Bi laton 10-02-2022 US PVR Lower EXT Complete Bilat Exam Date/Time: 10/02/2022 15:18 EDT Reason for Exam: PAD Report IMPRESSION: NO EVIDENCE OF SIGNIFICANT ARTERIAL STENOTIC DISEASE INVOLVING THE RIGHT AND LEFT LEGS. CLINICAL HISTORY: PAD. COMPARISON: None available. FINDINGS: On the right, the brachial systolic pressure is 104, the high thigh pressure is 142, the low thigh pressure is 130, the calf pressure is 123, the posterior tibial ankle pressure is 132, the dorsalis pedis ankle pressure is 127, and the digit pressure is 79. The high thigh-brachial index is 1.28. The ankle-brachial index at the posterior tibial artery is 1.17 The dorsalis pedis-brachial index is 1.14. The toe-brachial index is 0.71, with normal 0.7 or greater. The plethysmography waveforms are essentially normal. On the left, the brachial systolic pressure is 111, the high thigh pressure is 146, the low thigh pressure is 138, the calf pressure is 119, the posterior tibial ankle pressure is 125, the dorsalis pedis ankle pressure is 113, and the digit pressure was not obtained secondary to previous amputation. The high thigh-brachial index is 1.32. The ankle-brachial index at the posterior tibial artery is 1.13 The dorsalis pedis to brachial index is 1.02, with normal 1.0 or greater. The plethysmography waveforms are essentially normal. Report Ordering Provider: Maxim Santiago FINAL REPORT Dictated: 10/02/2022 4:19 pm Song Loya MD Signed (Electronic Signature): 10/02/2022 4:19 pm Signed by: Song Loya MD Transcribed by: ROSY Technologist: HW Normal [facility] XR Foot 3+ Views Lefton 09-09 XR Foot 3+ Views Left Exam Date/Time: 10/02/2022 10:22 EDT Reason for Exam: Pain, Traumatic Report IMPRESSION: CHRONIC OSTEOMYELITIS VERSUS REACTIVE PERIOSTEAL REACTION LEFT FIRST METATARSAL STUMP. EXAM: XR Foot 3+ Views Left DATE: 10/02/2022 CLINICAL HISTORY: Pain, Traumatic. COMPARISON: 05/16/2022 TECHNIQUE: AP, lateral and oblique radiographs of the left foot were obtained. 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 Moderately extensive periosteal reaction of the mid left first metatarsal diaphysis is probably related to chronic osteomyelitis, but may be reactive. Predominantly medial forefoot soft tissue swelling is present, without obvious soft tissue emphysema, other areas of periosteal reaction, fracture, bone destruction, radiodense foreign bodies. Ordering Provider: Bill Presley FINAL REPORT Dictated: 10/02/2022 12:50 pm Song Loya MD Signed (Electronic Signature): 10/02/2022 12:50 pm Signed by: Song Loya MD Transcribed by: ROSY Technologist: JUWAN Technical Comments Radiation Dose: Ka,r in mGy = na DAP = na Wet Read 10/02/2022 12:51 pm EDT, Song Loya MD, DISAGREE Normal [facility] eGFRon 10-02-2022 GFR/1.73 sq M.predicted among non-blacks MDRD (S/P/Bld) [Vol rate/Area] 69 mL/min/1.73 m2 Normal >=59 [facility] Comment on above: Order Comment: Order added by Discern Expert. Result Comment: Vascular Ultrasound Technician sarah kidney disease could be indicated at eGFR's of less than 60 mL/min/1.73m2. Kidney failure is indicated at less than 15 mL/min/1.73m2. Performed By: #### 1 [id number], 15030850, 8888329, 0833539, 29605302, 1266075, 2689224, 0180378, 4459539, 1427632 ####[facility] [address] [place] [address] Consent for Treatmenton 09-08 Consent for Treatment [id number] 30 [id number] #1.00CD:127 Normal [facility] Multi-Wound Charton 09-27-19 Multi-Wound Chart [id number] 7#1.00CD:127 [facility] Nursing Assessment - Woundon 09-26-2022 Nursing Assessment - Wound [id number] [id number] 3#1.00CD:127 [facility] Nursing Note - Woundon 09-26 Nursing Note - Wound 170.71.864.750.9144 0 [id number] 5#1.00CD:127 [facility] Physician Orderon 09-26-2022 Physician Order [id number] 9#1.00CD:127 [facility] Physician Order [id number] 9#1.00CD:127 [facility] Procedure - Woundon 09-27-19 Procedure - Wound [id number] 1#1.00CD:127 [facility] Progress Note - Woundon 09-08 Progress Note - Wound 170.71.121.117.202 30 [id number] 3#1.00CD:127 [facility] Consent for Treatmenton 09-08 Consent for Treatment 159.140.128.36.202 30 [id number] #1.00CD:127 [facility] Multi-Wound Charton 09-25-19 Multi-Wound Chart [id number] 6#1.00CD:127 [facility] Nursing Note - Woundon 09-24 Nursing Note - Wound 170.71.553.214.6072 0 [id number] 1#2.00CD:127 [facility] Procedure - Woundon 09-25-19 Procedure - Wound [id number] [id number] 0#1.00CD:127 [facility] Consent for Treatmenton 09-08 Consent for Treatment 159.140.128.34.202 30 [id number] #1.00CD:127 [facility] Multi-Wound Charton 09-22-19 Multi-Wound Chart [id number] 4#1.00CD:127 [facility] Nursing Note - Woundon 09-21 Nursing Note - Wound 170.71.387.297.7942 0 [id number] 1#1.00CD:127 [facility] Physician Orderon 09-21-2022 Physician Order [id number] 8#1.00CD:127 [facility] Procedure - Woundon 09-22-19 Procedure - Wound [id number] [id number] 4#1.00CD:127 [facility] Progress Note - Woundon 09-08 Progress Note - Wound 170.71.121.117.202 30 [id number] 1#2.00CD:127 [facility] Consent for Procedure/Surger yon 09-19-2022 Consent for Procedure/Surgery [id number] 2#1.00CD:127 [facility] Consent for Treatmenton 09-08 Consent for Treatment 159.140.128.34.202 30 [id number] #1.00CD:127 [facility] Correspondence - Woundon Correspondence - Wound 170.71.121.95.202 307 [id number] 6#1.00CD:127 [facility] Correspondence - Wound 170.71.121.95.202 307 [id number] 2#1.00CD:127 [facility] Multi-Wound Charton 09-20-19 Multi-Wound Chart [id number] [id number] 6#1.00CD:127 [facility] Nursing Assessment - Woundon 09-19-2022 Nursing Assessment - Wound 170.71.121.117.33813 [id number] 3#1.00CD:127 [facility] Nursing Note - Woundon 09-19 Nursing Note - Wound 170.71.956.977.3906 0 [id number] 4#1.00CD:127 [facility] Physician Orderon 09-19-2022 Physician Order [id number] 5#1.00CD:127 [facility] Procedure - Woundon 09-20-19 Procedure - Wound 170.71.121.117.85377 [id number] 9#2.00CD:127 [facility] Physician Orderon 09-18-2022 Physician Order [id number] 7#1.00CD:127 [facility] Consent for Treatmenton 09-08 Consent for Treatment 159.140.128.36.202 30 [id number] #1.00CD:127 [facility] Multi-Wound Charton 09-18-19 Multi-Wound Chart 170.71.121.117.81739 [id number] 5#1.00CD:127 [facility] Nursing Note - Woundon 09-17 Nursing Note - Wound 170.71.033.476.2133 0 [id number] 2#1.00CD:127 Normal [facility] Procedure - Woundon 09-18-19 Procedure - Wound 170.71.121.117.56924 [id number] 2#1.00CD:127 [facility] Multi-Wound Charton 09-15-19 Multi-Wound Chart [id number] 1#1.00CD:127 [facility] Nursing Note - Woundon 09-14 Nursing Note - Wound 170.71.699.320.1449 0 [id number] 0#1.00CD:127 [facility] Physician Orderon 09-14-2022 Physician Order [id number] 1#1.00CD:127 [facility] Physician Order [id number] 1#1.00CD:127 [facility] Physician Order [id number] 0#1.00CD:127 [facility] Procedure - Woundon 09-15-19 Procedure - Wound 170.71.121.117.60062 [id number] 3#1.00CD:127 [facility] Progress Note - Woundon Progress Note - Wound 170.71.121.117.202 30 [id number] #2.00CD:127 [facility] Nursing Note - Woundon 09-13 Nursing Note - Wound 170.71.611.321.9075 0 [id number] 8#1.00CD:127 [facility] Multi-Wound Charton 09-11-19 Multi-Wound Chart 170.71.121.117.67431 [id number] 4#1.00CD:127 [facility] Procedure - Woundon 09-11-19 Procedure - Wound 170.71.121.117.66322 [id number] 7#1.00CD:127 [facility] Consent for Treatmenton 08-11 Consent for Treatment 159.140.128.36.202 30 [id number] #1.00CD:127 [facility] Multi-Wound Charton 09-08-19 Multi-Wound Chart 170.71.121.117.63788 [id number] #1.00CD:127 [facility] Nursing Note - Woundon 09-07 Nursing Note - Wound 170.71.181.977.2949 0 [id number] #1.00CD:127 [facility] Procedure - Woundon 09-08-19 Procedure - Wound 170.71.121.117. [id number] #1.00CD:127 [facility] Consent for Procedure/Surger yon 09-05-2022 Consent for Procedure/Surgery 149.45.122.20.079646 [id number] 0#1.00CD:127 [facility] Consent for Treatmenton 08-10 Consent for Treatment 159.140.128.34.202 30 [id number] #1.00CD:127 [facility] Multi-Wound Charton 09-06-19 Multi-Wound Chart 170.71.121.117.70531 [id number] #1.00CD:127 [facility] Nursing Assessment - Woundon 09-05-2022 Nursing Assessment - Wound 170.71.121.117. [id number] #1.00CD:127 [facility] Nursing Note - Woundon 09-05 Nursing Note - Wound 170.71.607.147.6122 0 [id number] #2.00CD:127 [facility] Physician Orderon 09-05-2022 Physician Order 170.71.121.117. [id number] #1.00CD:127 [facility] Physician Order [id number] #1.00CD:127 [facility] Procedure - Woundon 09-06-19 Procedure - Wound 170.71.121.117.09349 [id number] #1.00CD:127 [facility] Consent for Treatmenton 08-10 Consent for Treatment 159.140.128.36.202 30 [id number] #1.00CD:127 [facility] Multi-Wound Charton 09-04-19 Multi-Wound Chart [id number] [id number] 9#1.00CD:127 [facility] Nursing Note - Woundon 09-03 Nursing Note - Wound 170.71.046.676.2190 0 [id number] 3#1.00CD:127 [facility] Nursing Note - Wound 170.71.913.913.3861 0 [id number] 6#1.00CD:127 [facility] Procedure - Woundon 09-04-19 Procedure - Wound 170.71.121.117.06677 [id number] 9#1.00CD:127 [facility] Consent for Treatmenton 08-10 Consent for Treatment 159.140.128.36.202 30 [id number] #1.00CD:127 [facility] Multi-Wound Charton 09-01-19 Multi-Wound Chart 170.71.121.117.24794 [id number] 5#1.00CD:127 [facility] Nursing Note - Woundon 08-31 Nursing Note - Wound 170.71.026.502.9985 0 [id number] 8#1.00CD:127 [facility] Physician Orderon 08-31-2022 Physician Order [id number] 6#1.00CD:127 [facility] Procedure - Woundon 09-01-19 Procedure - Wound 170.71.121.117.50146 [id number] 2#1.00CD:127 Normal [facility] Physician Orderon 08-30-2022 Physician Order [id number] 1#1.00CD:127 Normal [facility] Physician Order [id number] 6#1.00CD:127 Normal [facility] Physician Order [id number] 0#1.00CD:127 [facility] Physician Order [id number] 7#1.00CD:127 Normal [facility] Procedure - Woundon 08-31-19 Procedure - Wound 170.71.121.117.66762 [id number] 2#1.00CD:127 Normal [facility] Progress Note - Woundon 08-10 Progress Note - Wound 170.71.121.117.202 30 [id number] 1#1.00CD:127 Normal [facility] B12/Folate Panelon Cobalamin (Vitamin B12) [Mass/Vol] 472 pg/mL Normal 232-1245 [facility] Comment on above: Performed By: #### B C #### [facility] [address] [place], [place] [address] [employer] Supervisor: Anibal Marquis MD Folic Acid 11.6 ng/mL Normal >4.8 [facility] Comment on above: Performed By: #### B C #### [facility] [address] [place] [address] [employer] Supervisor: Anibal Marquis MD Consent for Treatmenton 08-10 Consent for Treatment 159.140.128.34.202 30 [id number] #1.00CD:127 Normal [facility] Iron Binding Cap.on 08-30-19 23 % Fe Saturation 33 % Normal 20-55 [facility] Comment on above: Performed By: #### B C #### [facility] [address] [place], [place] [address] [employer] Supervisor: Anibal Marquis MD Iron [Mass/Vol] 86 ug/dL Normal 59-158 [facility] Comment on above: Performed By: #### B C #### [facility] [address] [place], [place] [address] [employer] Supervisor: Anibal Marquis MD Total Fe Binding Cap 259 ug/dL Normal 250-450 [facility] Comment on above: Performed By: #### B C #### [facility] [address] [place], [place] [address] [employer] Supervisor: Anibal Marquis MD Unbound Fe Bind Cap 173 ug/dL Normal 112-347 [facility] Comment on above: Performed By: #### B C #### [facility] [address] [place], [place] [address] [employer] Supervisor: Anibal Marquis MD Multi-Wound Charton 08-30-19 23 Multi-Wound Chart [id number] [id number] 4#1.00CD:127 Normal [facility] Nursing Assessment - Woundon 08-29-2022 Nursing Assessment - Wound 170.71.121.117.81131 [id number] 3#1.00CD:127 Normal [facility] Nursing Note - Woundon 08-29 Nursing Note - Wound 170.71.948.768.6147 0 [id number] 0#1.00CD:127 Normal [facility] Hgb/Hcton 08-28-2022 Hematocrit (Bld) [Volume fraction] 34.6 % Low 41-53 [facility] Comment on above: Performed By: #### B C #### [facility] [address] [place], [place] [address] [employer] Supervisor: Anibal Marquis MD Hemoglobin (Bld) [Mass/Vol] 11.5 g/dL Low 13.5-17.5 [facility] Comment on above: Performed By: #### B C #### [facility] [address] [place] [address] [employer] Supervisor: Anibal Marquis MD Consent for Treatmenton 08-09 Consent for Treatment 159.140.128.34.202 30 [id number] #1.00CD:127 [facility] Consent for Treatmenton 08-09 Consent for Treatment 159.140.128.34.202 30 [id number] #1.00CD:127 [facility] Multi-Wound Charton 08-25-19 Multi-Wound Chart [id number] [id number] 2#1.00CD:127 [facility] Nursing Note - Woundon 08-24 Nursing Note - Wound 170.71.020.306.8494 0 [id number] 5#1.00CD:127 [facility] Nursing Note - Woundon 08-23 Nursing Note - Wound 170.71.329.110.9235 0 [id number] 4#2.00CD:127 [facility] Consent for Treatmenton 08-09 Consent for Treatment 159.140.128.36.202 30 [id number] #1.00CD:127 [facility] Multi-Wound Charton 08-23-19 Multi-Wound Chart [id number] [id number] 4#1.00CD:127 [facility] Physician Orderon 08-22-2022 Physician Order [id number] 1#1.00CD:127 [facility] Multi-Wound Charton 08-22-19 Multi-Wound Chart [id number] 1#1.00CD:127 Normal [facility] Nursing Note - Woundon 08-21 Nursing Note - Wound 170.71.739.193.7119 0 [id number] 9#1.00CD:127 [facility] Consent for Treatmenton 08-09 Consent for Treatment 159.140.128.34.202 30 [id number] #1.00CD:127 [facility] CHEMISTRYOrdered By: Lab ROP User on 08-14-2022 Glucose [Mass/Vol] 106 mg/dL High 55 - 99 mg/dL [facility] POC Subsection Comment on above: Result Comment: Luna GILBERT POC Device SN [id number] Invalid Interpretation Code [facility] POC Subsection POC User ID [id number] Invalid Interpretation Code [facility] POC Subsection POC Username GUSTAVO EVERETT Invalid Interpretation Code [facility] POC Subsection CHEMISTRYOrdered By: Lab ROP User on 08-13-2022 Glucose [Mass/Vol] 121 mg/dL High 55 - 99 mg/dL [facility] POC Subsection POC Device SN [id number] Invalid Interpretation Code FT POC Subsection POC User ID [id number] Invalid Interpretation Code FT POC Subsection POC Username MICAELA ORTIZ Invalid Interpretation Code [facility] POC Subsection Glucose [Mass/Vol] 79 mg/dL Normal 55 - 99 mg/dL [facility] POC Subsection Comment on above: Result Comment: Luna GILBERT POC Device SN [id number] Invalid Interpretation Code [facility] POC Subsection POC User ID [id number] Invalid Interpretation Code [facility] POC Subsection POC Username JAN ANGULO Invalid Interpretation Code [facility] POC Subsection CHEMISTRYOrdered By: SYSTEM SYSTEM on 08-12-2022 Anion gap [Moles/Vol] 8 mmol/L Normal 6 - 16 mEq/L FT Remisol Calcium [Mass/Vol] 8.5 mg/dL Low 8.9 - 11. 1 mg/dL [facility] Chloride [Moles/Vol] 107 mmol/L Normal 101 - 1 11 mmol/L [facility] CO2 [Moles/Vol] 27 mmol/L Normal 21 - 31 mmol/L [facility] Creatinine [Mass/Vol] 0.9 mg/dL Normal 0.5 - 1.3 mg/dL [facility] GFR/1.73 sq M.predicted among non-blacks MDRD (S/P/Bld) [Vol rate/Area] 97 mL/min/1.73 m2 Normal >=59mL/min/ 1.73 m2 [facility] S Glucose [Mass/Vol] 140 mg/dL Normal 55 - 199 mg/dL [facility] Potassium [Moles/Vol] 4.2 mmol/L Normal 3.5 - 5.3 mmol/L [facility] Procalcitonin 3.18 ng/mL High 0.00 - 0.50 ng/mL [facility] Sodium [Moles/Vol] 138 mmol/L Normal 135 - 145 mmol/L [facility] Urea nitrogen [Mass/Vol] 9 mg/dL Normal 5 - 21 mg/dL [facility] Urea nitrogen/Creatinine [Mass ratio] 10 mg/mg Normal 10 - 20 [facility] COAGULATIONOrdered By: Telma Velez on 08-12-2022 Fibrin D-dimer FEU (PPP) [Mass/Vol] 3745 ng/mL FEU Invalid Interpretation Code 215 - 500 ng/mL FEU [facility] Comment on above: Result Comment: Resu lts Called To Bharat/Jony Meza By BC And Read Back For Confirmation On 08/12/2022 08:49:03 EDT Results Verified By Repeat Analysis HEMATOLOGYOrdered By: SYSTEM SYSTEM on 08-12-2022 Basophils/100 WBC (Bld) 0.4 % Normal 0.0 - 2.0 % [facility] Basophils/Leukocytes Auto (Bld) [Pure # fraction] 0.0 E9/L Normal 0.0 - 0.2 E9/L [facility] Eosinophils/100 WBC (Bld) 2.2 % Normal 0.0 - 8.0 % [facility] Eosinophils/Leukocytes Auto (Bld) [Pure # fraction] 0.2 E9/L Normal 0.0 - 0.5 E9/L [facility] Lymphocytes/100 WBC (Bld) 16.5 % Normal 14.0 - 50.0 % [facility] Lymphocytes/Leukocytes Auto (Bld) [Pure # fraction] 1.3 E9/L Normal 1.0 - 4.0 E9/L [facility] Monocytes/100 WBC (Bld) 7.0 % Normal 4.0 - 14.0 % [facility] Monocytes/Leukocytes Auto (Bld) [Pure # fraction] 0.5 E9/L Normal 0.2 - 1.0 E9/L [facility] Neutrophils/100 WBC (Bld) 73.9 % Normal 36.0 - 75.0 % [facility] Neutrophils/Leukocytes Auto (Bld) [Pure # fraction] 5.7 E9/L Normal 2.0 - 7.5 E9/L [facility] HEMATOLOGYOrdered By: Liana Vivar on 08-12-2022 Erythrocyte distribution width (RBC) [Ratio] 14.4 % High 10.9 - 14.2 % [facility] Hematocrit (Bld) [Volume fraction] 25.1 % Low 37.7 - 49.0 % [facility] Hemoglobin (Bld) [Mass/Vol] 8.4 g/dL Low 13.5 - 17.5 gm/dL [facility] MCH (RBC) [Entitic mass] 29.9 pg Normal 27. 0 - 34.0 pg [facility] MCHC (RBC) [Mass/Vol] 33.3 g/dL Normal 31.4 - 36.0 gm/dL [facility] MCV (RBC) [Entitic vol] 89.8 fL Normal 80.0 - 100.0 fL [facility] Platelet mean volume (Bld) [Entitic vol] 7.8 fL Normal 6.4 - 10.8 fL [facility] Platelets (Bld) [#/Vol] 256.0 E9/L Normal 150. 0 - 500.0 E9/L [facility] RBC (Bld) [#/Vol] 2.8 E12/L Low 4.3 - 5.9 E12/L [facility] WBC corrected for nucl RBC Auto (Bld) [#/Vol] 7.7 E9/L Normal 4.0 - 11.0 E9/L [facility] Laboratory - Microbiology an d Antimicrobial susceptibilityOrdered By: Emily Walton on 08-12-2022 Bacteria identified Respiratory culture Nom (Sput) 2+ Normal upper respiratory virgen isolated [facility] No Panel InformationOrdered By: Emily Walton on 08-12-2022 GS 2+ White Blood Cells 1+ epithelial cells 2+ Yeast Occasional Gram Positive Cocci Occasional Gram Positive Rods [facility] Reference Laboratory Testing Ordered By: Harrison Espinosa on 08-12-2022 Cortisol [Mass/Vol] 14.9 ug/dL Invalid Interpretation Code 6.2-19.4mcg /dL [facility] Comment on above: Result Comment: Seferino carlos Note: The reference interval and flagging for this test is for an AM collection. If this is a PM collection please use: Cortisol PM: 2.3-11.9 Performed at: [id number] [id number] PhD Marlo Bowser CHEMISTRYOrdered By: SYSTEM SYSTEM on 08-11-2022 Anion gap [Moles/Vol] 6 mmol/L Normal 6 - 16 mEq/L [facility] Calcium [Mass/Vol] 8.2 mg/dL Low 8.9 - 11. 1 mg/dL [facility] Chloride [Moles/Vol] 110 mmol/L Normal 101 - 1 11 mmol/L [facility] CO2 [Moles/Vol] 25 mmol/L Normal 21 - 31 mmol/L [facility] Creatinine [Mass/Vol] 1.2 mg/dL Normal 0.5 - 1.3 mg/dL [facility] GFR/1.73 sq M.predicted among non-blacks MDRD (S/P/Bld) [Vol rate/Area] 69 mL/min/1.73 m2 Normal >=59mL/min/ 1.73 m2 [facility] Chem S Glucose [Mass/Vol] 342 mg/dL High 55 - 199 mg/dL [facility] Potassium [Moles/Vol] 4.2 mmol/L Normal 3.5 - 5.3 mmol/L [facility] Procalcitonin 6.43 ng/mL High 0.00 - 0.50 ng/mL [facility] Sodium [Moles/Vol] 137 mmol/L Normal 135 - 145 mmol/L [facility] Urea nitrogen [Mass/Vol] 14 mg/dL Normal 5 - 21 mg/dL [facility] Urea nitrogen/Creatinine [Mass ratio] 12 mg/mg Normal 10 - 20 [facility] HEMATOLOGYOrdered By: SYSTEM SYSTEM on 08-11-2022 Basophils/100 WBC (Bld) 0.2 % Normal 0.0 - 2.0 % [facility] Basophils/Leukocytes Auto (Bld) [Pure # fraction] 0.0 E9/L Normal 0.0 - 0.2 E9/L [facility] Eosinophils/100 WBC (Bld) 1.3 % Normal 0.0 - 8.0 % [facility] Eosinophils/Leukocytes Auto (Bld) [Pure # fraction] 0.1 E9/L Normal 0.0 - 0.5 E9/L [facility] Lymphocytes/100 WBC (Bld) 14.5 % Normal 14.0 - 50.0 % [facility] Lymphocytes/Leukocytes Auto (Bld) [Pure # fraction] 1.1 E9/L Normal 1.0 - 4.0 E9/L [facility] Monocytes/100 WBC (Bld) 5.4 % Normal 4.0 - 14.0 % [facility] Monocytes/Leukocytes Auto (Bld) [Pure # fraction] 0.4 E9/L Normal 0.2 - 1.0 E9/L [facility] Neutrophils/100 WBC (Bld) 78.6 % High 36.0 - 75.0 % [facility] Neutrophils/Leukocytes Auto (Bld) [Pure # fraction] 6.0 E9/L Normal 2.0 - 7.5 E9/L [facility] HEMATOLOGYOrdered By: Liana Vivar on 08-11-2022 Erythrocyte distribution width (RBC) [Ratio] 15.0 % High 10.9 - 14.2 % [facility] Hematocrit (Bld) [Volume fraction] 24.9 % Low 37.7 - 49.0 % [facility] Hemoglobin (Bld) [Mass/Vol] 8.2 g/dL Low 13.5 - 17.5 gm/dL [facility] MCH (RBC) [Entitic mass] 29.8 pg Normal 27. 0 - 34.0 pg [facility] MCHC (RBC) [Mass/Vol] 33.0 g/dL Normal 31.4 - 36.0 gm/dL [facility] MCV (RBC) [Entitic vol] 90.2 fL Normal 80.0 - 100.0 fL [facility] Platelet mean volume (Bld) [Entitic vol] 8.1 fL Normal 6.4 - 10.8 fL [facility] Platelets (Bld) [#/Vol] 238.0 E9/L Normal 150. 0 - 500.0 E9/L [facility] RBC (Bld) [#/Vol] 2.8 E12/L Low 4.3 - 5.9 E12/L [facility] WBC corrected for nucl RBC Auto (Bld) [#/Vol] 7.7 E9/L Normal 4.0 - 11.0 E9/L [facility] CHEMISTRYOrdered By: SYSTEM SYSTEM on 08-10-2022 Albumin [Mass/Vol] 3.0 g/dL Low 3.3 - 5.0 gm/dL [facility] Albumin/Globulin [Mass ratio] 0.9 {ratio} Low 1.1 - 2.2 [facility] ALP [Catalytic activity/Vol] 102 [iU]/d High 21 - 98 Int._Unit/L [facility] ALT No additional P-5'-P [Catalytic activity/Vol] 22 [iU]/d Normal 6 - 46 Int._Unit/L [facility] Anion gap [Moles/Vol] 9 mmol/L Normal 6 - 16 mEq/L [facility] AST [Catalytic activity/Vol] 27 [iU]/d Normal 5 - 43 Int._Unit/L [facility] Bilirubin [Mass/Vol] 1.2 mg/dL High 0.0 - 1 .1 mg/dL [facility] Bilirubin.direct [Mass/Vol] 0.3 mg/dL Normal 0.1 - 0.4 mg/dL [facility] Bilirubin.indirect [Mass or moles/Vol] 0.9 mg/dL Normal 0.1 - 0.9 mg/dL [facility] Calcium [Mass/Vol] 8.1 mg/dL Low 8.9 - 11. 1 mg/dL [facility] Chloride [Moles/Vol] 108 mmol/L Normal 101 - 1 11 mmol/L [facility] CO2 [Moles/Vol] 22 mmol/L Normal 21 - 31 mmol/L [facility] Creatinine [Mass/Vol] 1.4 mg/dL High 0.5 - 1.3 mg/dL [facility] Ferritin [Mass/Vol] 57 ng/mL Normal 24 - 336 ng/mL [facility] GFR/1.73 sq M.predicted among non-blacks MDRD (S/P/Bld) [Vol rate/Area] 57 mL/min/1.73 m2 Low >=59mL/min/ 1.73 m2 [facility] S Globulin (S) [Mass/Vol] 3.2 g/dL Normal 1.4 - 4.0 gm/dL [facility] Glucose [Mass/Vol] 381 mg/dL High 55 - 199 mg/dL [facility] Iron [Mass/Vol] 19 ug/dL Low 35 - 153 mcg/dL [facility] Iron binding capacity [Mass/Vol] 281 ug/dL Normal 250 - 400 mcg/dL [facility] Iron saturation [Mass fraction] 7 % Low 20 - 50 % [facility] Magnesium [Mass/Vol] 2.1 mg/dL Normal 1.3 - 2 .4 mg/dL [facility] Phosphate [Mass/Vol] 2.6 mg/dL Normal 1.9 - 4 .6 mg/dL [facility] Potassium [Moles/Vol] 4.1 mmol/L Normal 3.5 - 5.3 mmol/L [facility] Procalcitonin 10.25 ng/mL High 0.00 - 0.50 ng/mL [facility] Protein [Mass/Vol] 6.2 g/dL Normal 6.0 - 7.8 gm/dL [facility] Sodium [Moles/Vol] 135 mmol/L Normal 135 - 145 mmol/L [facility] Transferrin [Mass/Vol] 201 mg/dL Normal 200 - 370 mg/dL [facility] Urea nitrogen [Mass/Vol] 20 mg/dL Normal 5 - 21 mg/dL [facility] Urea nitrogen/Creatinine [Mass ratio] 14 mg/mg Normal 10 - 20 [facility] HEMATOLOGYOrdered By: SYSTEM SYSTEM on 08-10-2022 Basophils/100 WBC (Bld) 0.4 % Normal 0.0 - 2.0 % [facility] Basophils/Leukocytes Auto (Bld) [Pure # fraction] 0.0 E9/L Normal 0.0 - 0.2 E9/L [facility] Eosinophils/100 WBC (Bld) 1.4 % Normal 0.0 - 8.0 % [facility] Eosinophils/Leukocytes Auto (Bld) [Pure # fraction] 0.1 E9/L Normal 0.0 - 0.5 E9/L [facility] Lymphocytes/100 WBC (Bld) 16.7 % Normal 14.0 - 50.0 % [facility] Lymphocytes/Leukocytes Auto (Bld) [Pure # fraction] 1.5 E9/L Normal 1.0 - 4.0 E9/L [facility] Monocytes/100 WBC (Bld) 5.4 % Normal 4.0 - 14.0 % [facility] Monocytes/Leukocytes Auto (Bld) [Pure # fraction] 0.5 E9/L Normal 0.2 - 1.0 E9/L [facility] Neutrophils/100 WBC (Bld) 76.1 % High 36.0 - 75.0 % [facility] Neutrophils/Leukocytes Auto (Bld) [Pure # fraction] 6.8 E9/L Normal 2.0 - 7.5 E9/L [facility] HEMATOLOGYOrdered By: Gutierrez Guzmán on 08-10-2022 Erythrocyte distribution width (RBC) [Ratio] 14.7 % High 10.9 - 14.2 % [facility] Hematocrit (Bld) [Volume fraction] 27.1 % Low 37.7 - 49.0 % [facility] Hemoglobin (Bld) [Mass/Vol] 8.9 g/dL Low 13.5 - 17.5 gm/dL [facility] MCH (RBC) [Entitic mass] 30.0 pg Normal 27. 0 - 34.0 pg [facility] MCHC (RBC) [Mass/Vol] 32.9 g/dL Normal 31.4 - 36.0 gm/dL [facility] MCV (RBC) [Entitic vol] 91.3 fL Normal 80.0 - 100.0 fL [facility] Platelet mean volume (Bld) [Entitic vol] 7.4 fL Normal 6.4 - 10.8 fL [facility] Platelets (Bld) [#/Vol] 224.0 E9/L Normal 150. 0 - 500.0 E9/L [facility] RBC (Bld) [#/Vol] 3.0 E12/L Low 4.3 - 5.9 E12/L [facility] WBC corrected for nucl RBC Auto (Bld) [#/Vol] 8.9 E9/L Normal 4.0 - 11.0 E9/L [facility] Laboratory - Microbiology an d Antimicrobial susceptibilityOrdered By: Fadia Cyr on 08-10-2022 MRSA DNA NAKIA+probe Ql (Unsp spec) MRSA Negative. [facility] MICRO OTHER TESTSOrdered By: Kati Castillo on 08-10-2022 Occult Bld Stl Negative (08/10/22 1:00 PM) Normal Negative [facility] CHEMISTRYOrdered By: SYSTEM SYSTEM on 08-09-2022 Troponin I.cardiac [Mass/Vol] 6.30 pg/mL Low 15.90 - 38.40 pg/mL [facility] Lactate [Mass/Vol] 2.1 mmol/L Normal 0.5 - 2.2 mmol/L [facility] Troponin I.cardiac [Mass/Vol] 6.80 pg/mL Low 15.90 - 38.40 pg/mL [facility] 25-hydroxyvitamin D3 [Mass/Vol] 24.0 ng/mL Low 30.0 - 100.0 ng/mL [facility] Albumin [Mass/Vol] 3.6 g/dL Normal 3.3 - 5.0 gm/dL [facility] Albumin/Globulin [Mass ratio] 1.0 {ratio} Low 1.1 - 2.2 [facility] ALP [Catalytic activity/Vol] 122 [iU]/d High 21 - 98 Int._Unit/L [facility] ALT No additional P-5'-P [Catalytic activity/Vol] 25 [iU]/d Normal 6 - 46 Int._Unit/L [facility] AST [Catalytic activity/Vol] 39 [iU]/d Normal 5 - 43 Int._Unit/L [facility] Bilirubin [Mass/Vol] 0.8 mg/dL Normal 0.0 - 1 .1 mg/dL [facility] Bilirubin.direct [Mass/Vol] 0.3 mg/dL Normal 0.1 - 0.4 mg/dL [facility] Bilirubin.indirect [Mass or moles/Vol] 0.5 mg/dL Normal 0.1 - 0.9 mg/dL [facility] CK [Catalytic activity/Vol] 240 [iU]/d Normal 14 - 261 Int._Unit/L [facility] Cobalamin (Vitamin B12) [Mass/Vol] 137 pg/mL Normal 50 - 1500 pg/mL [facility] Folate [Mass/Vol] 9.5 ng/mL Normal >=6.7ng/mL [facility] Re misol Globulin (S) [Mass/Vol] 3.7 g/dL Normal 1.4 - 4.0 gm/dL [facility] Lactate [Mass/Vol] 3.2 mmol/L High 0.5 - 2.2 mmol/L [facility] Lipase [Catalytic activity/Vol] 25 U/L Normal 13 - 58 unit/L [facility] Protein [Mass/Vol] 7.3 g/dL Normal 6.0 - 7.8 gm/dL [facility] Troponin I.cardiac [Mass/Vol] 10.50 pg/mL Low 15.90 - 38.40 pg/mL [facility] TSH Qn 0.77 m[IU]/L Normal 0.34 - 5.60 mcIU/mL [facility] CHEMISTRYOrdered By: Gutierrez can on 08-09-2022 HbA1c (Bld) [Mass fraction] 13.4 % High <=5.9% [facility] CHEMISTRYOrdered By: Jules Mas on 08-09-2022 Natriuretic peptide B (Bld) [Mass/Vol] 17 pg/mL Normal 5 - 80 pg/mL [facility] COAGULATIONOrdered By: Di Walton on 08-09-2022 aPTT Coag (PPP) [Time] 16.6 s Low 25.1 - 36.5 second(s) [facility] INR Coag (PPP) [Relative time] 1.1 {INR} Invalid Interpretation Code [facility] PT Coag (PPP) [Time] 12.2 s Normal 9.4 - 1 2.5 second(s) [facility] FT Blood GasesOrdered By: Alfredo Olmos on 08-09-2022 a/A Ratio Art 50.70 % Normal >=0.80% [facility] Resp A uto SS AaDO2 Art 50.2 mm[Hg] High 5.0 - 15.0 mmHg [facility] Resp Auto SS Allens Test Positive (08/09/22 4:10 PM) Normal [facility] Resp Auto SS Base Excess Arterial -0.7 mmol/L Low >=2.8mmol/L [facility] Resp Auto SS cCa2+ Art 4.76 mg/dL Normal 4.40 - 5.30 mg/dL [facility] Resp Auto SS cCl- Art 98.0 mmol/L Low 101.0 - 111.0 mmol/L [facility] Resp Auto SS cGlu Art 441 mg/dL High 55 - 99 mg/dL [facility] Resp Auto SS cK+ Art 4.4 mmol/L Normal 3.5 - 5.3 mmol/L [facility] Resp Auto SS cLac Art 2.0 mmol/L Normal 0.5 - 2.2 mmol/L [facility] Resp Auto SS sales and support center agent+ Art 134.0 mmol/L Low 135.0 - 145.0 mmol/L [facility] Resp Auto SS Drawn by D[facility] Invalid Interpretation Code [facility] Resp Auto SS FCOHb Art 1.9 % Normal 1.5 - 4.9 % [facility] Resp Aut o SS FIO2 BG 21 Invalid Interpretation Code [facility] Resp Auto SS FMetHb Art 0.2 % Normal 0.0 - 1.9 % [facility] Resp Aut o SS FO2Hb Art 86.5 % Low 93.0 - 100.0 % [facility] Resp Auto SS HCO3 (Bld) [Moles/Vol] 23.7 mmol/L Normal 22.0 - 26.0 mmol/L [facility] Resp Auto SS Hemoglobin (Bld) [Mass/Vol] 9.8 g/dL Low 12.0 - 17.0 gm/dL [facility] Resp Auto SS P CO2 Arterial 38.8 mm[Hg] Normal 35.0 - 45.0 mmHg [facility] Resp Auto SS P O2 Arterial 51.7 mm[Hg] Low 80.0 - 100.0 mmHg [facility] Resp Auto SS pH Arterial 7.400 Normal 7.350 - 7.450 [facility] Resp Auto SS Sample Site R Radial (08/09/22 4:10 PM) Normal [facility] Resp Auto SS Sample Type Arterial Draw (08/09/22 4:10 PM) Normal [facility] Resp Auto SS No Panel InformationOrdered By: [facility] on 08-09-2022 Blood Culture Charcoal No growth at 5 da ys. Final to follow at 7 days. [facility] Blood Culture Charcoal No growth at 5 da ys. Final to follow at 7 days. [facility] Basic Metabolic Panel w/ Ref belle to MGon 06-30-2022 Anion gap [Moles/Vol] 8 mmol/L Low 9 - 17 mmol/L [facility] Calcium [Mass/Vol] 9.3 mg/dL 8.6 - 10. 4 mg/dL [facility] Chloride [Moles/Vol] 102 mmol/L 98 - 10 7 mmol/L [facility] CO2 [Moles/Vol] 27 mmol/L 20 - 31 mmol/L [facility] Creatinine [Mass/Vol] 1.09 mg/dL 0.70 - 1.20 mg/dL [facility] GFR/1.73 sq M.predicted MDRD (S/P/Bld) [Vol rate/Area] - PINF [facility] Comment on above: These results are not intended for use in patients <18 years of age. eGFR results are calculated without a race factor using the 2020 CKD-EPI equation. Careful clinical correlation is recommended, particularly when comparing to results calculated using previous equations. The CKD-EPI equation is less accurate in patients with extremes of muscle mass, extra-renal metabolism of creatine, excessive creatine ingestion, or following therapy that affects renal tubular secretion. Glucose [Mass/Vol] 224 mg/dL High 70 - 99 mg/dL [facility] Interpretation and review of laboratory results Abnormal [facility] Potassium [Moles/Vol] 4.5 mmol/L 3.7 - 5.3 mmol/L [facility] Sodium [Moles/Vol] 137 mmol/L 135 - 144 mmol/L [facility] Urea nitrogen [Mass/Vol] 14 mg/dL 8 - 23 mg/dL [facility] [facility] Urea nitrogen/Creatinine (Bld) [Mass ratio] 13 9 - 20 [facility] Glucose, Whole Bloodon 06-30 Glucose [Mass/Vol] 189 mg/dL High 65 - 99 mg/dL [facility] Interpretation and review of laboratory results Abnormal [facility] Basic Metabolic Panel w/ Ref belle to MGon 06-29-2022 Anion gap [Moles/Vol] 8 mmol/L Low 9 - 17 mmol/L [facility] Calcium [Mass/Vol] 9.1 mg/dL 8.6 - 10. 4 mg/dL [facility] Chloride [Moles/Vol] 105 mmol/L 98 - 10 7 mmol/L [facility] CO2 [Moles/Vol] 27 mmol/L 20 - 31 mmol/L [facility] Creatinine [Mass/Vol] 1.05 mg/dL 0.70 - 1.20 mg/dL [facility] GFR/1.73 sq M.predicted MDRD (S/P/Bld) [Vol rate/Area] - PINF [facility] Comment on above: These results are not intended for use in patients <18 years of age. eGFR results are calculated without a race factor using the 2020 CKD-EPI equation. Careful clinical correlation is recommended, particularly when comparing to results calculated using previous equations. The CKD-EPI equation is less accurate in patients with extremes of muscle mass, extra-renal metabolism of creatine, excessive creatine ingestion, or following therapy that affects renal tubular secretion. Glucose [Mass/Vol] 220 mg/dL High 70 - 99 mg/dL [facility] Interpretation and review of laboratory results Abnormal [facility] Potassium [Moles/Vol] 4.3 mmol/L 3.7 - 5.3 mmol/L [facility] Sodium [Moles/Vol] 140 mmol/L 135 - 144 mmol/L [facility] Urea nitrogen [Mass/Vol] 14 mg/dL 8 - 23 mg/dL [facility] Urea nitrogen/Creatinine (Bld) [Mass ratio] 13 9 - 20 [facility] Culture, Wound Aerobic Onlyo n 06-29-2022 Interpretation and review of laboratory results Abnormal [facility] Microorganism identified Cx Nom (Unsp spec) SERRATIA MARCESCENS MODERATE GROWTH Abnormal [facility] Microorganism identified Cx Nom (Unsp spec) NORMAL SKIN VIRGEN [facility] Microorganism or agent identified Nom (Unsp spec) MODERATE NEUTROPHILS Abnormal [facility] Microorganism or agent identified Nom (Unsp spec) MIXED BACTERIAL MORPHOTYPES SEEN ON GRAM STAIN. Abnormal [facility] Specimen Description .FOOT [facility] Glucose, Whole Bloodon 06-29 Glucose [Mass/Vol] 270 mg/dL High 65 - 99 mg/dL [facility] Interpretation and review of laboratory results Abnormal [facility] Glucose [Mass/Vol] 258 mg/dL High 65 - 99 mg/dL [facility] Interpretation and review of laboratory results Abnormal [facility] Glucose [Mass/Vol] 171 mg/dL High 65 - 99 mg/dL [facility] Interpretation and review of laboratory results Abnormal [facility] Glucose [Mass/Vol] 165 mg/dL High 65 - 99 mg/dL [facility] Interpretation and review of laboratory results Abnormal [facility] Vancomycin Level, Randomon 0 06-29-2022 Vancomycin Random Date last dose 06.28.22 [facility] Vancomycin Random Dose amount 1250 [facility] Vancomycin Random Time last dose 2232 [facility] Vancomycin Rm 13.5 ug/mL [facility] Comment on above: Higher trough serum vancomycin concentrations of 15-20 ug/mL are recommended for complicated infections such as bacteremia, endocarditis, osteomyelitis, meningitis, and hospital acquired pneumonia. [facility] Basic Metabolic Panel w/ Ref belle to MGon 06-28-2022 Anion gap [Moles/Vol] 9 mmol/L 9 - 17 mmol/L [facility] Calcium [Mass/Vol] 8.5 mg/dL Low 8.6 - 10. 4 mg/dL [facility] Chloride [Moles/Vol] 103 mmol/L 98 - 10 7 mmol/L [facility] CO2 [Moles/Vol] 25 mmol/L 20 - 31 mmol/L [facility] Creatinine [Mass/Vol] 1.09 mg/dL 0.70 - 1.20 mg/dL [facility] GFR/1.73 sq M.predicted MDRD (S/P/Bld) [Vol rate/Area] - [facility] Comment on above: These results are not intended for use in patients <18 years of age. eGFR results are calculated without a race factor using the 2020 CKD-EPI equation. Careful clinical correlation is recommended, particularly when comparing to results calculated using previous equations. The CKD-EPI equation is less accurate in patients with extremes of muscle mass, extra-renal metabolism of creatine, excessive creatine ingestion, or following therapy that affects renal tubular secretion. Glucose [Mass/Vol] 320 mg/dL High 70 - 99 mg/dL [facility] Interpretation and review of laboratory results Abnormal [facility] Potassium [Moles/Vol] 4.5 mmol/L 3.7 - 5.3 mmol/L [facility] Sodium [Moles/Vol] 137 mmol/L 135 - 144 mmol/L [facility] Urea nitrogen [Mass/Vol] 15 mg/dL 8 - 23 mg/dL [facility] Urea nitrogen/Creatinine (Bld) [Mass ratio] 14 - [facility] Glucose, Whole Bloodon 06-28 Glucose [Mass/Vol] 375 mg/dL High 65 - 99 mg/dL [facility] Interpretation and review of laboratory results Abnormal [facility] [employer] Glucose [Mass/Vol] 331 mg/dL High 65 - 99 mg/dL [facility] Interpretation and review of laboratory results Abnormal [facility] Glucose [Mass/Vol] 209 mg/dL High 65 - 99 mg/dL [facility] Interpretation and review of laboratory results Abnormal [facility] Glucose [Mass/Vol] 306 mg/dL High 65 - 99 mg/dL [facility] Interpretation and review of laboratory results Abnormal [facility] Vancomycin Level, Randomon 0 06-28-2022 Vancomycin Random Date last dose 06.28.22 [facility] Vancomycin Random Dose amount 1250 [facility] Vancomycin Random Time last dose 415 [facility] Vancomycin Rm 25.9 ug/mL [facility] Comment on above: Higher trough serum vancomycin concentrations of 15-20 ug/mL are recommended for complicated infections such as bacteremia, endocarditis, osteomyelitis, meningitis, and hospital acquired pneumonia. [facility] Basic Metabolic Panel w/ Ref belle to MGon 06-27-2022 Anion gap [Moles/Vol] 10 mmol/L 9 - 17 mmol/L [facility] Calcium [Mass/Vol] 8.7 mg/dL 8.6 - 10. 4 mg/dL [facility] Chloride [Moles/Vol] 102 mmol/L 98 - 10 7 mmol/L [facility] CO2 [Moles/Vol] 25 mmol/L 20 - 31 mmol/L [facility] Creatinine [Mass/Vol] 1.31 mg/dL High 0.70 - 1.20 mg/dL [facility] GFR/1.73 sq M.predicted MDRD (S/P/Bld) [Vol rate/Area] - PINF [facility] Comment on above: These results are not intended for use in patients <18 years of age. eGFR results are calculated without a race factor using the 2020 CKD-EPI equation. Careful clinical correlation is recommended, particularly when comparing to results calculated using previous equations. The CKD-EPI equation is less accurate in patients with extremes of muscle mass, extra-renal metabolism of creatine, excessive creatine ingestion, or following therapy that affects renal tubular secretion. Glucose [Mass/Vol] 290 mg/dL High 70 - 99 mg/dL [facility] Interpretation and review of laboratory results Abnormal [facility] Potassium [Moles/Vol] 4.5 mmol/L 3.7 - 5.3 mmol/L [facility] Sodium [Moles/Vol] 137 mmol/L 135 - 144 mmol/L [facility] Urea nitrogen [Mass/Vol] 14 mg/dL 8 - 23 mg/dL [facility] Urea nitrogen/Creatinine (Bld) [Mass ratio] 11 9 - 20 [facility] CBC with Auto Differentialon 06-27-2022 Absolute Eos # 0.20 [place] [facility] Absolute Lymph # 2.00 [facility] Absolute Pope # 0.50 [facility] Basophils (Bld) [#/Vol] 0.00 10*3/uL [facility] Basophils/100 WBC (Bld) 0 % 0 - 2 % B ON [facility] Differential Type YES [facility] Eosinophils/100 WBC (Bld) 3 % 0 - 5 % [facility] Hematocrit (Bld) [Volume fraction] 31.0 % Low 41 - 53 % [facility] Hemoglobin (Bld) [Mass/Vol] 10.4 g/dL Low 13.5 - 17.5 g/dL [facility] Interpretation and review of laboratory results Abnormal [facility] Lymphocytes/100 WBC (Bld) 34 % 13 - 44 % [facility] MCH (RBC) [Entitic mass] 30.6 pg 26 - 34 pg [facility] MCHC (RBC) [Mass/Vol] 33.7 g/dL 31 - 3 7 g/dL [facility] MCV (RBC) [Entitic vol] 91.0 fL 80 - 100 fL [facility] Monocytes/100 WBC (Bld) 8 % 5 - 9 % B ON [facility] Platelet distribution width (Bld) [Ratio] 13.9 % 12.1 - 15.2 % [facility] Platelets (Bld) [#/Vol] 334 10*3/uL [facility] RBC (Bld) [#/Vol] 3.40 10*6/uL Low 4.5 - 5.9 m/uL [facility] Segmented neutrophils/100 WBC (Bld) 55 % 39 - 75 % [facility] Segs Absolute 3.30 [facility] WBC (Bld) [#/Vol] 6.0 10*3/uL [facility] Glucose, Whole Bloodon 06-27 Glucose [Mass/Vol] 211 mg/dL High 65 - 99 mg/dL [facility] Interpretation and review of laboratory results Abnormal [facility] Glucose [Mass/Vol] 184 mg/dL High 65 - 99 mg/dL [facility] Interpretation and review of laboratory results Abnormal [facility] Glucose [Mass/Vol] 217 mg/dL High 65 - 99 mg/dL [facility] Interpretation and review of laboratory results Abnormal [facility] Glucose [Mass/Vol] 289 mg/dL High 65 - 99 mg/dL [facility] Interpretation and review of laboratory results Abnormal [facility] C-Reactive Proteinon 023 CRP High sensitivity method [Mass/Vol] 151.6 mg/L High 0.0 - 5.0 mg/L [facility] CBC with Auto Differentialon 06-26-2022 Absolute Eos # 0.10 [place] [facility] Absolute Lymph # 1.50 [facility] Absolute Pope # 0.70 [facility] RS [facility] Basophils (Bld) [#/Vol] 0.00 10*3/uL [facility] Basophils/100 WBC (Bld) 0 % 0 - 2 % B ON [facility] Differential Type YES [facility] Eosinophils/100 WBC (Bld) 1 % 0 - 5 % [facility] Hematocrit (Bld) [Volume fraction] 31.9 % Low 41 - 53 % [facility] Hemoglobin (Bld) [Mass/Vol] 10.7 g/dL Low 13.5 - 17.5 g/dL [facility] Interpretation and review of laboratory results Abnormal [facility] Lymphocytes/100 WBC (Bld) 17 % 13 - 44 % [facility] MCH (RBC) [Entitic mass] 30.5 pg 26 - 34 pg [facility] MCHC (RBC) [Mass/Vol] 33.5 g/dL 31 - 3 7 g/dL [facility] MCV (RBC) [Entitic vol] 91.3 fL 80 - 100 fL [facility] Monocytes/100 WBC (Bld) 8 % 5 - 9 % B ON [facility] Platelet distribution width (Bld) [Ratio] 13.9 % 12.1 - 15.2 % [facility] Platelets (Bld) [#/Vol] 350 10*3/uL [facility] RBC (Bld) [#/Vol] 3.49 10*6/uL Low 4.5 - 5.9 m/uL [facility] Segmented neutrophils/100 WBC (Bld) 74 % 39 - 75 % [facility] Segs Absolute 6.50 [facility] WBC (Bld) [#/Vol] 8.8 10*3/uL [facility] CMPon 06-26-2022 Albumin [Mass/Vol] 3.7 g/dL 3.5 - 5.2 g/dL [facility] ALP [Catalytic activity/Vol] 129 U/L 40 - 129 U/L [facility] ALT [Catalytic activity/Vol] 17 U/L 5 - 41 U/L [facility] Anion gap [Moles/Vol] 14 mmol/L 9 - 17 mmol/L [facility] AST [Catalytic activity/Vol] 21 U/L NINF - 40 U/L [facility] Bilirubin [Mass/Vol] 0.6 mg/dL 0.3 - 1 .2 mg/dL [facility] Calcium [Mass/Vol] 8.9 mg/dL 8.6 - 10. 4 mg/dL [facility] Chloride [Moles/Vol] 94 mmol/L Low 98 - 10 7 mmol/L [facility] CO2 [Moles/Vol] 23 mmol/L 20 - 31 mmol/L [facility] Creatinine [Mass/Vol] 1.43 mg/dL High 0.70 - 1.20 mg/dL [facility] GFR/1.73 sq M.predicted MDRD (S/P/Bld) [Vol rate/Area] 56 mL/min/{1.73_m2} Low - PINF [facility] Comment on above: These results are not intended for use in patients <18 years of age. eGFR results are calculated without a race factor using the 2020 CKD-EPI equation. Careful clinical correlation is recommended, particularly when comparing to results calculated using previous equations. The CKD-EPI equation is less accurate in patients with extremes of muscle mass, extra-renal metabolism of creatine, excessive creatine ingestion, or following therapy that affects renal tubular secretion. Glucose [Mass/Vol] 560 mg/dL Critically high 70 - 9 9 mg/dL [facility] Potassium [Moles/Vol] 4.4 mmol/L 3.7 - 5.3 mmol/L [facility] Protein [Mass/Vol] 7.6 g/dL 6.4 - 8.3 g/dL [facility] Sodium [Moles/Vol] 131 mmol/L Low 135 - 144 mmol/L [facility] Urea nitrogen [Mass/Vol] 15 mg/dL 8 - 23 mg/dL [facility] Urea nitrogen/Creatinine (Bld) [Mass ratio] 10 9 - 20 [facility] COVID-19, Rapidon 06-26-2022 SARS-CoV-2 (COVID-19) RdRp gene NAKIA+probe Ql (Resp) Not detected Not Detected [facility] Comment on above: Rapid NAAT: The specimen is NEGATIVE for SARS-CoV-2, the novel coronavirus associated with COVID-19. The ID NOW COVID-19 assay is designed to detect the virus that causes COVID-19 in patients with signs and symptoms of infection who are suspected of COVID-19. An individual without symptoms of COVID-19 and who is not shedding SARS-CoV-2 virus would expect to have a negative (not detected) result in this assay. Negative results should be treated as presumptive and, if inconsistent with clinical signs and symptoms or necessary for patient management, should be tested with an alternative molecular assay. Negative results do not preclude SARS-CoV-2 infection and should not be used as the sole basis for patient management decisions. Fact sheet for Healthcare Providers: https://www.fda.gov/media/118518/download Fact sheet for Patients: https://www.fda.gov/media/110724/download Methodology: Isothermal Nucleic Acid Amplification Specimen Description .NASOPHARYNGEAL SWAB [facility] Glucose, Whole Bloodon 06-26 Glucose [Mass/Vol] 333 mg/dL High 65 - 99 mg/dL [facility] Interpretation and review of laboratory results Abnormal [facility] Glucose [Mass/Vol] 381 mg/dL High 65 - 99 mg/dL [facility] Interpretation and review of laboratory results Abnormal [facility] No Panel Informationon 06-26 Interpretation and review of laboratory results Abnormal [facility] Sedimentation Rateon 023 ESR (Bld) [Velocity] 49 mm/h High [facility] Interpretation and review of laboratory results Abnormal [facility] XR FOOT LEFT (MIN 3 VIEWS)on 06-26-2022 FINDINGS/IMPRESSION: 1. 8 mm area rarefaction in the medial articular aspect proximal portion of the distal phalanx great toe with associated skin ulcer and soft tissue swelling is more suspicious for osteomyelitis than previously. 2. No gas in the soft tissues. [facility] EXAM: XR FOOT LEFT (MIN 3 VIEWS) HISTORY: Reason for exam:->big toe infection COMPARISON: 06/21/2022. [facility] Primo Neely Jr., MD - 06/26/2022 EXAM: XR FOOT LEFT (MIN 3 VIEWS) HISTORY: Reason for exam:->big toe infection COMPARISON: 06/21/2022. IMPRESSION: FINDINGS/IMPRESSION: 1. 8 mm area rarefaction in the medial articular aspect proximal portion of the distal phalanx great toe with associated skin ulcer and soft tissue swelling is more suspicious for osteomyelitis than previously. 2. No gas in the soft tissues. [facility] Work Phone: Radiology Study observation (narrative) [facility] Work Phone: XR FOOT LEFT (MIN 3 VIEWS)Or dered By: Primo Neely on 06-26-2022 [facility] Work Phone: C-Reactive Proteinon 023 CRP High sensitivity method [Mass/Vol] 73.2 mg/L High 0.0 - 5.0 mg/L [facility] CBC with Auto Differentialon 06-21-2022 Absolute Eos # 0.10 [place] [facility] Absolute Lymph # 1.40 [facility] URS [facility] Absolute Pope # 0.50 [facility] RS [facility] Basophils (Bld) [#/Vol] 0.10 10*3/uL [facility] Basophils/100 WBC (Bld) 1 % 0 - 2 % B ON [facility] Differential Type YES [facility] Eosinophils/100 WBC (Bld) 2 % 0 - 5 % [facility] Hematocrit (Bld) [Volume fraction] 33.3 % Low 41 - 53 % [facility] Hemoglobin (Bld) [Mass/Vol] 11.3 g/dL Low 13.5 - 17.5 g/dL [facility] Interpretation and review of laboratory results Abnormal [facility] Lymphocytes/100 WBC (Bld) 20 % 13 - 44 % [facility] MCH (RBC) [Entitic mass] 30.7 pg 26 - 34 pg [facility] MCHC (RBC) [Mass/Vol] 33.9 g/dL 31 - 3 7 g/dL [facility] MCV (RBC) [Entitic vol] 90.7 fL 80 - 100 fL [facility] Monocytes/100 WBC (Bld) 7 % 5 - 9 % B ON [facility] Platelet distribution width (Bld) [Ratio] 14.1 % 12.1 - 15.2 % [facility] Platelets (Bld) [#/Vol] 283 10*3/uL [facility] RBC (Bld) [#/Vol] 3.67 10*6/uL Low 4.5 - 5.9 m/uL [facility] Segmented neutrophils/100 WBC (Bld) 70 % 39 - 75 % [facility] Segs Absolute 4.70 [facility] WBC (Bld) [#/Vol] 6.8 10*3/uL [facility] CMPon 06-21-2022 Albumin [Mass/Vol] 3.9 g/dL 3.5 - 5.2 g/dL [facility] ALP [Catalytic activity/Vol] 141 U/L High 40 - 129 U/L [facility] ALT [Catalytic activity/Vol] 20 U/L 5 - 41 U/L [facility] Anion gap [Moles/Vol] 12 mmol/L 9 - 17 mmol/L [facility] AST [Catalytic activity/Vol] 21 U/L NINF - 40 U/L [facility] Bilirubin [Mass/Vol] 0.7 mg/dL 0.3 - 1 .2 mg/dL [facility] Calcium [Mass/Vol] 9.2 mg/dL 8.6 - 10. 4 mg/dL [facility] Chloride [Moles/Vol] 97 mmol/L Low 98 - 10 7 mmol/L [facility] CO2 [Moles/Vol] 26 mmol/L 20 - 31 mmol/L [facility] Creatinine [Mass/Vol] 1.2 mg/dL 0.70 - 1.20 mg/dL [facility] GFR/1.73 sq M.predicted MDRD (S/P/Bld) [Vol rate/Area] - PINF [facility] Comment on above: These results are not intended for use in patients <18 years of age. eGFR results are calculated without a race factor using the 2020 CKD-EPI equation. Careful clinical correlation is recommended, particularly when comparing to results calculated using previous equations. The CKD-EPI equation is less accurate in patients with extremes of muscle mass, extra-renal metabolism of creatine, excessive creatine ingestion, or following therapy that affects renal tubular secretion. Glucose [Mass/Vol] 367 mg/dL High 70 - 99 mg/dL [facility] Potassium [Moles/Vol] 4.5 mmol/L 3.7 - 5.3 mmol/L [facility] Protein [Mass/Vol] 7.4 g/dL 6.4 - 8.3 g/dL [facility] Sodium [Moles/Vol] 135 mmol/L 135 - 144 mmol/L [facility] Urea nitrogen [Mass/Vol] 11 mg/dL 8 - 23 mg/dL [facility] Urea nitrogen/Creatinine (Bld) [Mass ratio] 9 9 - 20 [facility] No Panel Informationon 06-21 Interpretation and review of laboratory results Abnormal [facility] Sedimentation Rateon 023 ESR (Bld) [Velocity] 90 mm/h High [facility] Interpretation and review of laboratory results Abnormal [facility] XR FOOT LEFT (MIN 3 VIEWS)on 06-21-2022 FINDINGS/IMPRESSION: 1. Ulcer plantar surface distal phalanx great toe. 2. Diffuse soft tissue swelling particularly involving the great toe, distal phalanx. 3. A subtle lucency in the medial aspect base of the distal phalanx does not appear closely correlated to the skin ulcer and is unlikely to represent osteomyelitis. 3. Healed fracture proximal phalanx second toe. Recommendation: Consider 7-10 day follow-up films.. [facility] EXAM: XR FOOT LEFT (MIN 3 VIEWS) HISTORY: Reason for exam:->toe infection COMPARISON: None. [facility] Primo Neely Jr., MD - 06/21/2022 EXAM: XR FOOT LEFT (MIN 3 VIEWS) HISTORY: Reason for exam:->toe infection COMPARISON: None. IMPRESSION: FINDINGS/IMPRESSION: 1. Ulcer plantar surface distal phalanx great toe. 2. Diffuse soft tissue swelling particularly involving the great toe, distal phalanx. 3. A subtle lucency in the medial aspect base of the distal phalanx does not appear closely correlated to the skin ulcer and is unlikely to represent osteomyelitis. 3. Healed fracture proximal phalanx second toe. Recommendation: Consider 7-10 day follow-up films.. [employer] Phone: Radiology Study observation (narrative) [email or web address] Phone: XR FOOT LEFT (MIN 3 VIEWS)Or dered By: Primo Neely on 06-21-2022 [employer] Phone: VL LOWER EXTREMITY ARTERIAL SEGMENTAL PRESSURES W PPGon 04-16-2022 Primo Neely Jr., MD - 04/17/2022 [facility] Vascular Lower Arterial Plethysmography Procedure Patient Name KATHARINA WALSH Date of Study 04/16/2022 E Date of 1960 Gender Male Age 62 year(s) Race Room Number Corporate ID # [id number] Patient MR # [id number] Safety Relief Valve Technician Sofie Conn, RT Interpreting Physician Tank Neely Referring Referring Physician Sara Lester Nurse Practitioner Procedure Type of Study: Extremities Arteries: Lower Arterial Plethysmography, PVR Lower with PPG. Indications for Study:Diminished pulses. Patient Status:Routine. 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 Near normal waveforms. Signature ---- ---- ---- ---- Findings: Right Impression: Left Impression: Right STEW within normal limits at Left STEW within normal limits at 1.09 1.08 Velocities are measured in cm/s ; Diameters are measured in cm Pressures + + +--------+-----+---- +--------+----- + ! !!Right ! !Left! ! ! + + +--------+-----+---- +--------+----- + !Location !!Pressure!Ratio! !Pressure!Ratio! + + +--------+-----+---- +--------+----- + !Thigh !!122 !1.06 ! !128 !1.11 ! + + +--------+-----+---- +--------+----- + !Calf !!119 !1.03 ! !125 !1.09 ! + + +--------+-----+---- +--------+----- + !Ankle PT !!120 !1.04 ! !117 !1.02 ! + + +--------+-----+---- +--------+----- + !Ankle DP !!124 !1.08 ! !125 !1.09 ! + + +--------+-----+---- +--------+----- + !Great Toe !!143 !1.24 ! !125 !1.09 ! + + +--------+-----+---- +--------+----- + - Brachial Pressure:Right: 103.Left:115. - STEW:Right: 1.08.Left: 1.09. Right Plethysmographic Results + +--- +------- -----+ +- + !Right ! ! ! ! ! + +--- +------- -----+ +- + !Location !Pressure !Ratio !Notch !Amplitude ! + +--- +------- -----+ +- + !Calf !119 !1.03 ! ! ! + +--- +------- -----+ +- + !Ankle PT !120 !1.04 ! ! ! + +--- +------- -----+ +- + !Ankle DP !124 !1.08 ! ! ! + +--- +------- -----+ +- + - Right Brachial Pressure:103. - Right STEW:1.08. Left Plethysmographic Results + +--- +------- -----+ +- + !Left ! ! ! ! ! + +--- +------- -----+ +- + !Location !Pressure !Ratio !Notch !Amplitude ! + +--- +------- -----+ +- + !Calf !125 !1.09 ! ! ! + +--- +------- -----+ +- + !Ankle PT !117 !1.02 ! ! ! + +--- +------- -----+ +- + !Ankle DP !125 !1.09 ! ! ! + +--- +------- -----+ +- + - Left Brachial Pressure:115. - Left STEW:1.09. Plethysmographic Digit Evaluation +---------++-------- +-----+ --++--------+-----+- + ! !!Right ! !Left !! ! ! ! +---------++-------- +-----+ --++--------+-----+- + !Location !!Pressure!Ratio!PPG Wave Form !!Pressure!Ratio!PPG Wave Form ! +---------++-------- +-----+ --++--------+-----+- + !Great Toe!!143 !1.24 ! !!125 !1.09 ! ! +---------++-------- +-----+ --++--------+-----+- + Post Exercise Exercise Time: 0 sec. [employer] Phone: Radiology Study observation (narrative) [employer] Phone: VL LOWER EXTREMITY ARTERIAL SEGMENTAL PRESSURES W PPGOrdered By: Primo Neely on 04-16-2022 [employer] Phone: CHEMISTRYOrdered By: Kati Castillo on 04-02-2022 HbA1c (Bld) [Mass fraction] 10.4 % High <=5.9% [facility] [employer] MRI LUMBAR SPINE W WO CONTRA STonatalya 02-20-2022 1. There is grade 1 anterolisthesis of L4 on L5 of 2 mm secondary to severe facet joint arthropathy and the findings at this level causes moderate spinal canal stenosis with at least moderate narrowing of the lateral recesses bilaterally. There is also mild bilateral foraminal narrowing. No other spinal canal stenosis of the lumbar spine is seen. 2. There is mild left foraminal narrowing at the L3-L4 level secondary to a small left foraminal/left far lateral disc protrusion. 3. There is multilevel discogenic disease and this appears most severe at the L1-L2 level. [facility] HISTORY: The patient has had incontinence of stool for the past 6-8 months. Chronic midline low back pain. MRI lumbar spine without and with contrast 02/19/2022. COMPARISON: CT scan abdomen and pelvis 12/04/2021. TECHNIQUE: Multiplanar, multisequence MRI images of the lumbar spine were obtained prior to and following the intravenous administration of gadolinium. FINDINGS: A few images are slightly degraded by motion artifact. There is severe discogenic disease at the L1-L2 level with prominent anterior osteophyte formation. There is mild anterolisthesis of L4 on L5 of 2 mm. No other spondylolisthesis is seen. There is mild discogenic disease at the L4-L5 level and moderate discogenic disease posteriorly at the L5-S1 level. There is no significant scoliosis. The bone marrow signal intensity appears age appropriate. The conus medullaris is not studied in detail, but it appears grossly unremarkable. L1-L2 level: There is a small posterior disc bulge, but there is no significant spinal canal stenosis or foraminal narrowing. L2-L3 level: No significant disc protrusion, spinal canal stenosis, or foraminal narrowing is seen. L3-L4 level: There is a small left foraminal/left far lateral disc protrusion containing an annular fissure and this appears to cause mild left foraminal narrowing. There is no right foraminal narrowing or central spinal canal stenosis. Mild facet joint arthropathy. L4-L5 level: Anterolisthesis is secondary to severe facet joint arthropathy. This results in moderate spinal canal stenosis and at least moderate narrowing of the lateral recesses bilaterally. There is also mild bilateral foraminal narrowing. L5-S1 level: There is a small posterior disc bulge without significant spinal canal stenosis or foraminal narrowing. No abnormal enhancement of the thecal sac is seen. [facility] [place], King Vargas MD - 02/20/2022 HISTORY: The patient has had incontinence of stool for the past 6-8 months. Chronic midline low back pain. MRI lumbar spine without and with contrast 02/19/2022. COMPARISON: CT scan abdomen and pelvis 12/04/2021. TECHNIQUE: Multiplanar, multisequence MRI images of the lumbar spine were obtained prior to and following the intravenous administration of gadolinium. FINDINGS: A few images are slightly degraded by motion artifact. There is severe discogenic disease at the L1-L2 level with prominent anterior osteophyte formation. There is mild anterolisthesis of L4 on L5 of 2 mm. No other spondylolisthesis is seen. There is mild discogenic disease at the L4-L5 level and moderate discogenic disease posteriorly at the L5-S1 level. There is no significant scoliosis. The bone marrow signal intensity appears age appropriate. The conus medullaris is not studied in detail, but it appears grossly unremarkable. L1-L2 level: There is a small posterior disc bulge, but there is no significant spinal canal stenosis or foraminal narrowing. L2-L3 level: No significant disc protrusion, spinal canal stenosis, or foraminal narrowing is seen. L3-L4 level: There is a small left foraminal/left far lateral disc protrusion containing an annular fissure and this appears to cause mild left foraminal narrowing. There is no right foraminal narrowing or central spinal canal stenosis. Mild facet joint arthropathy. L4-L5 level: Anterolisthesis is secondary to severe facet joint arthropathy. This results in moderate spinal canal stenosis and at least moderate narrowing of the lateral recesses bilaterally. There is also mild bilateral foraminal narrowing. L5-S1 level: There is a small posterior disc bulge without significant spinal canal stenosis or foraminal narrowing. No abnormal enhancement of the thecal sac is seen. IMPRESSION: 1. There is grade 1 anterolisthesis of L4 on L5 of 2 mm secondary to severe facet joint arthropathy and the findings at this level causes moderate spinal canal stenosis with at least moderate narrowing of the lateral recesses bilaterally. There is also mild bilateral foraminal narrowing. No other spinal canal stenosis of the lumbar spine is seen. 2. There is mild left foraminal narrowing at the L3-L4 level secondary to a small left foraminal/left far lateral disc protrusion. 3. There is multilevel discogenic disease and this appears most severe at the L1-L2 level. [employer] Phone: MRI LUMBAR SPINE W WO CONTRA STOrdered By: King Antonio on 02-20-2022 [employer] Phone: MRI LUMBAR SPINE W WO CONTRA STon 02-19-2022 Radiology Study observation (narrative) [email or web address] Phone: CBCon 12-04-2021 ABSOLUTE BAS 0.0 10*3/uL Normal 0.0-0.2 [facility] Comment on above: Performed By: #### M G, PT, CMPF, ACBC, PTT #### Testing performed at [facility] [address] [place] [address] ABSOLUTE EOS 0.1 10*3/uL Normal 0.0-0.7 [facility] Comment on above: Performed By: #### M G, PT, CMPF, ACBC, PTT #### Testing performed at [address] [address] ABSOLUTE NEUTROPHIL COUNT 5.2 10*3/uL Normal 1.4-6.5 [facility] Comment on above: Performed By: #### M G, PT, CMPF, ACBC, PTT #### Testing performed at [address] [address] Basophils/100 WBC (Bld) 0.6 % Normal 0.0-2.0 [facility] Comment on above: Performed By: #### M G, PT, CMPF, ACBC, PTT #### Testing performed at [address] [address] DTYPE AUTO DIFF Normal [facility] Comment on above: Performed By: #### M G, PT, CMPF, ACBC, PTT #### Testing performed at [address] [address] Eosinophils/100 WBC (Bld) 1.8 % Normal 0.0-11.0 [facility] Comment on above: Performed By: #### M G, PT, CMPF, ACBC, PTT #### Testing performed at [address] [address] Lymphocytes (Bld) [#/Vol] 1.3 10*3/uL Normal 1.2-3.4 [facility] Comment on above: Performed By: #### M G, PT, CMPF, ACBC, PTT #### Testing performed at [address] [address] Lymphocytes/100 WBC (Bld) 18.6 % Low 20.0-55.0 [facility] Comment on above: Performed By: #### M G, PT, CMPF, ACBC, PTT #### Testing performed at [address] [address] Monocytes (Bld) [#/Vol] 0.3 10*3/uL Normal 0.0-0.7 [facility] Comment on above: Performed By: #### M G, PT, CMPF, ACBC, PTT #### Testing performed at [address] [address] Monocytes/100 WBC (Bld) 4.9 % Normal 0.0-10.0 [facility] Comment on above: Performed By: #### M G, PT, CMPF, ACBC, PTT #### Testing performed at [address] [address] Neutrophils/100 WBC (Bld) 74.1 % Normal 37.0-75.0 [facility] Comment on above: Performed By: #### M G, PT, CMPF, ACBC, PTT #### Testing performed at [address] [address] Erythrocyte distribution width (RBC) [Ratio] 14.1 % Normal 11.5-14.5 [facility] Comment on above: Performed By: #### M G, PT, CMPF, ACBC, PTT #### Testing performed at [address] [address] Hematocrit (Bld) [Volume fraction] 36.3 % Low 42.0-52.0 [facility] Comment on above: Performed By: #### M G, PT, CMPF, ACBC, PTT #### Testing performed at [address] [address] Hemoglobin (Bld) [Mass/Vol] 12.1 g/dL Low 14.0-18.0 [facility] Comment on above: Performed By: #### M G, PT,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 (Bld) [#/Vol] 4.18 10*6/uL Low 4.5 - 5.9 m/uL [employer] Work Phone: RBC (Bld) [#/Vol] NOT REPORTED [employer] Phone: Segmented neutrophils/100 WBC (Bld) 79 % High 39 - 75 % [employer] Work Phone: Segs Absolute 6.80 High [employer] Work Phone: WBC (Bld) [#/Vol] 8.6 10*3/uL [employer] Work Phone: WBC (Bld) [#/Vol] NOT REPORTED [employer] Phone: [employer] Phone: XR FOOT RIGHT (MIN 3 VIEWS)O rdered By: Festus Tolentino on 11-30-2020 Subacute fractures consistent with neuropathic foot, 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 [employer] Phone: EXAM: XR FOOT RIGHT (MIN 3 VIEWS) HISTORY: Reason for exam:->?infection (red/warm/swollen) , DM pt w/ Hx 3+5th toe removal, per pt known 4 fx in foot from xrays taken at foot/ankle in [place], [place] COMPARISON: Right foot 03/20/2020. TECHNIQUE: 3 views right foot. FINDINGS: Healing subacute fractures with periosteal new bone formation proximal third and fourth metatarsal shafts. Healing fracture fifth metatarsal, distal third, with mild overlap of fracture fragments. On the lateral view there is fragmentation of the medial cuneiform. Diffuse soft tissue swelling. No evidence of osteomyelitis. [employer] Phone: Cedric, Mhpn Incoming Radiant Results From [facility] - 11/30/2020 5:11 PM EDT EXAM: XR FOOT RIGHT (MIN 3 VIEWS) HISTORY: Reason for exam:->?infection (red/warm/swollen) , DM pt w/ Hx 3+5th toe removal, per pt known 4 fx in foot from xrays taken at foot/ankle in [place], [place] COMPARISON: Right foot 03/20/2020. TECHNIQUE: 3 views right foot. FINDINGS: Healing subacute fractures with periosteal new bone formation proximal third and fourth metatarsal shafts. Healing fracture fifth metatarsal, distal third, with mild overlap of fracture fragments. On the lateral view there is fragmentation of the medial cuneiform. Diffuse soft tissue swelling. No evidence of osteomyelitis. IMPRESSION: Subacute fractures consistent with neuropathic foot, 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 [employer] Phone: [employer] Phone: Comprehensive Metabolic Pane lOrdered By: Sara Lester on 11-15-2020 Albumin [Mass/Vol] 4 g/dL 3.5 - 5.2 g/dL [employer] Phone: Albumin/Globulin Ratio NOT REPORTED [employer] Phone: ALP (Bld) [Catalytic activity/Vol] 197 U/L High 40 - 129 U/L [employer] Phone: ALT [Catalytic activity/Vol] 23 U/L 5 - 41 U/L [employer] Phone: Anion gap [Moles/Vol] 13 mmol/L 9 - 17 mmol/L [employer] Phone: AST [Catalytic activity/Vol] 21 U/L <40 [employer] Phone: Bilirubin [Mass/Vol] 0.71 mg/dL 0.30 - 1.20 mg/dL [employer] Phone: Calcium [Mass/Vol] 9.4 mg/dL 8.6 - 10. 4 mg/dL [employer] Phone: Chloride [Moles/Vol] 94 mmol/L Low 98 - 10 7 mmol/L [employer] Phone: CO2 [Moles/Vol] 23 mmol/L 20 - 31 mmol/L [employer] Phone: Creatinine [Mass/Vol] 1.03 mg/dL 0.70 - 1.20 mg/dL [employer] Phone: Free PSA/Total PSA [Mass fraction] 7.4 g/dL 6.4 - 8.3 g/dL [employer] Phone: GFR >60 >60 mL/min [employer] Phone: GFR Non- >60 >60 mL/min [employer] Phone: GFR/1.73 sq M.predicted MDRD (S/P/Bld) [Vol rate/Area] [employer] Phone: Comment on above: Average GFR for 50-5 9 years old: 93 mL/min/1.73sq m Chronic Kidney Disease: <60 mL/min/1.73sq m Kidney failure: <15 mL/min/1.73sq m eGFR calculated using average adult body mass. Additional eGFR calculator available at: http://www.AppLayer.Cogniscan/multiple_crcl_2012.htm GFR/1.73 sq M.predicted MDRD (S/P/Bld) [Vol rate/Area] NOT REPORTED [employer] Phone: Glucose [Mass/Vol] 514 mg/dL Critically high 70 - 9 9 mg/dL [employer] Phone: Interpretation and review of laboratory results Abnormal [employer] Phone: Potassium [Moles/Vol] 4.6 mmol/L 3.7 - 5.3 mmol/L [employer] Phone: Sodium [Moles/Vol] 130 mmol/L Low 135 - 144 mmol/L [employer] Phone: Urea nitrogen (BldV) [Mass/Vol] 13 mg/dL 6 - 20 mg/dL [employer] Phone: Urea nitrogen/Creatinine (Bld) [Mass ratio] 13 [employer] Phone: [employer] Phone: Sedimentation RateOrdered By : Sara Lester on 11-15-2020 Interpretation and review of laboratory results Abnormal [employer] Phone: Sed Rate 58 mm High 0 - 20 mm [employer] Phone: [employer] Phone: COVID-19, Rapidon 05-16-2020 SARS-CoV-2, Rapid Not Detected Not Detected [employer] Phone: Comment on above: Rapid NAAT: The specimen is NEGATIVE for SARS-CoV-2, the novel coronavirus associated with COVID-19. The ID NOW COVID-19 assay is designed to detect the virus that causes COVID-19 in patients with signs and symptoms of infection who are suspected of COVID-19. An individual without symptoms of COVID-19 and who is not shedding SARS-CoV-2 virus would expect to have a negative (not detected) result in this assay. Negative results should be treated as presumptive and, if inconsistent with clinical signs and symptoms or necessary for patient management, should be tested with an alternative molecular assay. Negative results do not preclude SARS-CoV-2 infection and should not be used as the sole basis for patient management decisions. Fact sheet for Healthcare Providers: https://www.fda.gov/media/649003/download Fact sheet for Patients: https://www.fda.gov/media/762683/download Methodology: Isothermal Nucleic Acid Amplification Specimen Description .NASOPHARYNGEAL SWAB [employer] Phone: Glucose, Whole Bloodon 05-16 Glucose [Mass/Vol] 120 mg/dL High 65 - 99 mg/dL [employer] Phone: Interpretation and review of laboratory results Abnormal [employer] Phone: Basic Metabolic Panelon - Anion gap [Moles/Vol] 14 mmol/L 9 - 17 mmol/L [employer] Phone: Bun/Cre Ratio 15 [employer] Work Phone: Calcium [Mass/Vol] 10.0 mg/dL 8.6 - 10. 4 mg/dL [employer] Phone: Chloride [Moles/Vol] 98 mmol/L 98 - 10 7 mmol/L [employer] Phone: CO2 [Moles/Vol] 22 mmol/L 20 - 31 mmol/L [employer] Phone: Creatinine [Mass/Vol] 1.08 mg/dL 0.7 - 1.2 mg/dL [employer] Phone: GFR >60 >60 mL/min [employer] Phone: GFR Non- >60 >60 mL/min [employer] Phone: GFR/1.73 sq M predicted among non-blacks MDRD (S/P/Bld) [Vol rate/Area] NOT REPORTED [employer] Phone: GFR/1.73 sq M predicted among non-blacks MDRD (S/P/Bld) [Vol rate/Area] [employer] Phone: Comment on above: Average GFR for 50-5 9 years old: 93 mL/min/1.73sq m Chronic Kidney Disease: <60 mL/min/1.73sq m Kidney failure: <15 mL/min/1.73sq m eGFR calculated using average adult body mass. Additional eGFR calculator available at: http://www.AppLayer.Cogniscan/multiple_crcl_2012.htm Glucose [Mass/Vol] 227 mg/dL High 70 - 99 mg/dL [employer] Phone: Interpretation and review of laboratory results Abnormal [employer] Phone: Potassium [Moles/Vol] 3.5 mmol/L Low 3.7 - 5.3 mmol/L [employer] Phone: Sodium [Moles/Vol] 134 mmol/L Low 135 - 144 mmol/L [employer] Phone: Urea nitrogen [Mass/Vol] 16 mg/dL 6 - 20 mg/dL [employer] Phone: CBCon 05-13-2020 Erythrocyte distribution width (RBC) [Ratio] 12.4 % 12.1 - 15.2 % [employer] Phone: Hematocrit (Bld) [Volume fraction] 35.0 % Low 41 - 53 % [employer] Phone: Hemoglobin (Bld) [Mass/Vol] 11.9 g/dL Low 13.5 - 17.5 g/dL [employer] Phone: Interpretation and review of laboratory results Abnormal [employer] Phone: MCH (RBC) [Entitic mass] 29.2 pg 26 - 34 pg [employer] Phone: MCHC (RBC) [Mass/Vol] 34.0 g/dL 31 - 3 7 g/dL [employer] Phone: MCV (RBC) [Entitic vol] 86.0 fL 80 - 100 fL [employer] Phone: Platelet mean volume (Bld) [Entitic vol] NOT REPORTED fL [employer] Phone: Platelets (Bld) [#/Vol] 410 10*3/uL [employer] Phone: RBC (Bld) [#/Vol] 4.07 10*6/uL Low 4.5 - 5.9 m/uL [employer] Phone: WBC (Bld) [#/Vol] NOT REPORTED per 100 WBC [employer] Phone: WBC (Bld) [#/Vol] 9.4 10*3/uL [employer] Phone: Comprehensive Metabolic Pane dayo 05-13-2020 Albumin [Mass/Vol] 4.1 g/dL 3.5 - 5.2 g/dL [employer] Phone: Albumin/Globulin [Mass ratio] NOT REPORTED [employer] Phone: ALP [Catalytic activity/Vol] 129 U/L 40 - 129 U/L [employer] Phone: ALT [Catalytic activity/Vol] 22 U/L 5 - 41 U/L [employer] Phone: Anion gap [Moles/Vol] 13 mmol/L 9 - 17 mmol/L [employer] Phone: AST [Catalytic activity/Vol] 22 U/L <40 [employer] Phone: Bilirubin Ql (U) 0.37 mg/dL 0.3 - 1.2 mg/dL [employer] Phone: Bun/Cre Ratio 14 [employer] Phone: Calcium [Mass/Vol] 9.8 mg/dL 8.6 - 10. 4 mg/dL [employer] Phone: Chloride [Moles/Vol] 97 mmol/L Low 98 - 10 7 mmol/L [employer] Phone: CO2 [Moles/Vol] 23 mmol/L 20 - 31 mmol/L [employer] Phone: Creatinine [Mass/Vol] 1.11 mg/dL 0.7 - 1.2 mg/dL [employer] Phone: GFR >60 >60 mL/min [employer] Phone: GFR Non- >60 >60 mL/min [employer] Phone: GFR/1.73 sq M predicted among non-blacks MDRD (S/P/Bld) [Vol rate/Area] [employer] Phone: Comment on above: Average GFR for 50-5 9 years old: 93 mL/min/1.73sq m Chronic Kidney Disease: <60 mL/min/1.73sq m Kidney failure: <15 mL/min/1.73sq m eGFR calculated using average adult body mass. Additional eGFR calculator available at: http://www.dabanniu.com/multiple_crcl_2012.htm GFR/1.73 sq M predicted among non-blacks MDRD (S/P/Bld) [Vol rate/Area] NOT REPORTED [employer] Phone: Glucose [Mass/Vol] 226 mg/dL High 70 - 99 mg/dL [employer] Phone: Interpretation and review of laboratory results Abnormal [employer] Phone: Potassium [Moles/Vol] 3.5 mmol/L Low 3.7 - 5.3 mmol/L [employer] Phone: Protein [Mass/Vol] 8.2 g/dL 6.4 - 8.3 g/dL [employer] Phone: Sodium [Moles/Vol] 133 mmol/L Low 135 - 144 mmol/L [employer] Phone: Urea nitrogen [Mass/Vol] 15 mg/dL 6 - 20 mg/dL [employer] Phone: Hemoglobin A1Con 05-13-2020 Glucose [Mass/Vol] 286 mg/dL [employer] Phone: Comment on above: The ADA and AACC rec ommend providing the estimated average glucose result to permit better patient understanding of their HBA1c result. HbA1c (Bld) [Mass fraction] 11.6 % High 4 - 6 % [employer] Phone: Interpretation and review of laboratory results Abnormal [employer] Phone: Lipid Panelon 05-13-2020 Cholesterol [Mass/Vol] 137 mg/dL <200 [employer] Phone: Comment on above: Cholesterol Guidelines: <200 Desirable 200-240 Borderline >240 Undesirable Cholesterol in HDL [Mass/Vol] 32 mg/dL Low >40 [employer] Phone: Comment on above: HDL Guidelines: <40 Undesirable 40-59 Borderline >59 Desirable Cholesterol in LDL [Mass/Vol] 62 mg/dL 0 - 130 mg/dL [employer] Phone: Comment on above: LDL Guidelines: <100 Desirable 100-129 Near to/above Desirable 130-159 Borderline >159 Undesirable Direct (measured) LDL and calculated LDL are not interchangeable tests. Cholesterol in VLDL [Mass/Vol] NOT REPORTED High 1 - 30 mg/dL [employer] Phone: Cholesterol.total/Choles terol in HDL [Mass ratio] 4.3 {ratio} <5 [employer] Phone: Interpretation and review of laboratory results Abnormal [employer] Phone: Triglyceride [Mass/Vol] 215 mg/dL High <150 [employer] Phone: Comment on above: Triglyceride Guidelines: <150 Desirable 150-199 Borderline 200-499 High >499 Very high Based on AHA Guidelines for fasting triglyceride, December 2011. Microalbumin, Uron 1 Albumin/Creatinine DL <= 20 mg/L (24H U) [Mass ratio] <12 <21 mg/L [employer] Phone: Albumin/Creatinine DL <= 20 mg/L (U) [Ratio] CANNOT BE CALCULATED <17 mcg/mg creat [employer] Phone: Creatinine [Mass/Vol] 20.6 mg/dL Low 39 - 2 59 mg/dL [employer] Phone: Interpretation and review of laboratory results Abnormal [employer] Phone: Culture, Blood 1on 1 Culture NO GROWTH 6 DAYS [place], [place] Special Requests 10 ml iv start [place] Specimen Description .BLOOD [place] Glucose, Whole Bloodon 03-26 Glucose [Mass/Vol] 254 mg/dL High 65 - 99 mg/dL [place] Interpretation and review of laboratory results Abnormal [place] Glucose [Mass/Vol] 160 mg/dL High 65 - 99 mg/dL [place] Interpretation and review of laboratory results Abnormal [place] Glucose, Whole Bloodon 03-25 Glucose [Mass/Vol] 198 mg/dL High 65 - 99 mg/dL [place] Interpretation and review of laboratory results Abnormal [place] Glucose [Mass/Vol] 321 mg/dL High 65 - 99 mg/dL [place] Interpretation and review of laboratory results Abnormal [place] Glucose [Mass/Vol] 162 mg/dL High 65 - 99 mg/dL [place] Interpretation and review of laboratory results Abnormal [place] Glucose [Mass/Vol] 181 mg/dL High 65 - 99 mg/dL [place] Interpretation and review of laboratory results Abnormal [place] Basic Metabolic Panelon 03-11 Anion gap [Moles/Vol] 10 mmol/L 9 - 17 mmol/L [place] Bun/Cre Ratio 11 [place] Calcium [Mass/Vol] 9.1 mg/dL 8.6 - 10. 4 mg/dL [place] Chloride [Moles/Vol] 100 mmol/L 98 - 10 7 mmol/L [place] CO2 [Moles/Vol] 27 mmol/L 20 - 31 mmol/L [place] Creatinine [Mass/Vol] 0.84 mg/dL 0.7 - 1.2 mg/dL [place] GFR >60 >60 mL/min [place] GFR Non- >60 >60 mL/min [place] GFR/1.73 sq M predicted among non-blacks MDRD (S/P/Bld) [Vol rate/Area] NOT REPORTED [place] GFR/1.73 sq M predicted among non-blacks MDRD (S/P/Bld) [Vol rate/Area] [place] Comment on above: Average GFR for 50-5 9 years old: 93 mL/min/1.73sq m Chronic Kidney Disease: <60 mL/min/1.73sq m Kidney failure: <15 mL/min/1.73sq m eGFR calculated using average adult body mass. Additional eGFR calculator available at: http://www.dabanniu.com/multiple_crcl_2012.htm Glucose [Mass/Vol] 222 mg/dL High 70 - 99 mg/dL [place] Interpretation and review of laboratory results Abnormal [place] Potassium [Moles/Vol] 4.0 mmol/L 3.7 - 5.3 mmol/L [place] Sodium [Moles/Vol] 137 mmol/L 135 - 144 mmol/L [place] Urea nitrogen [Mass/Vol] 9 mg/dL 6 - 20 mg/dL [place] Glucose, Whole Bloodon 03-24 Glucose [Mass/Vol] 255 mg/dL High 65 - 99 mg/dL [place] Interpretation and review of laboratory results Abnormal [place] Glucose [Mass/Vol] 262 mg/dL High 65 - 99 mg/dL [place] Interpretation and review of laboratory results Abnormal [place] Glucose [Mass/Vol] 208 mg/dL High 65 - 99 mg/dL [place] Interpretation and review of laboratory results Abnormal [place] Glucose [Mass/Vol] 184 mg/dL High 65 - 99 mg/dL [place] Interpretation and review of laboratory results Abnormal [place] Surgical Pathologyon 021 Surgical Pathology Report -- Diagnosis -- 1. 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 2. RIGHT FIFTH TOE AMPUTATION: CHRONIC ACTIVE ULCER WITH ACUTE SUPPURATIVE INFLAMMATION, BONE NECROSIS AND REACTIVE BONE CHANGES. Dara Beckford Electronically Signed Out ajb03/24/2020 Clinical Information Pre-op Diagnosis: OSTEOMYELITIS, RIGHT 3RD AND 5TH TOES Operative Findings: RIGHT 5TH TOE (CULTURE ANAEROBIC AND AEROBIC); RIGHT 3RD TOE; RIGHT 5TH TOE Operation Performed: TOE AMPUTATION Source of Specimen 1: RIGHT 3RD TOE 2: RIGHT 5TH TOE Gross Description 1. JILLIAN LITTLE, RIGHT 3RD TOE 5.5 x 2.5 x 2.2 cm disarticulated digit with nail. On the plantar aspect at the margin there is granularity that extends to the soft tissue margin (inked black). There is no subjacent bone. Sectioning of the tip reveals pink-ferguson trabecular bone with no marked softening. Also, separate, is a 3.2 x 1.5 x 1.2 cm portion of bone with grossly unremarkable yellow-ferguson cut surfaces. Cassette summary: A soft tissue margin inked black perpendicular, B bone distal digit and separate bone inked black after decalcification. 2. JILLIAN LITTLE, RIGHT 5TH TOE 5.0 x 2.9 x 2.0 cm disarticulated digit with nail. At the margin, is an area of granularity and necrosis. The subjacent bone is pink-ferguson and slightly soft. Senior Storage 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 sections 2cs with margin inked black perpendicular after decalcification. tm Microscopic Description 1, 2. Microscopic examination performed. SURGICAL PATHOLOGY CONSULTATION Patient Name: JILLIAN LITTLE [facility] Rec: [id number] Path Number: [id number] [facility] ANATOMIC PATHOLOGY [address] [place] [address]. [place], [place] [address] [place] Basic Metabolic Panelon 03-11 Anion gap [Moles/Vol] 10 mmol/L 9 - 17 mmol/L [place] Bun/Cre Ratio 13 [place] Calcium [Mass/Vol] 9.9 mg/dL 8.6 - 10. 4 mg/dL [place] Chloride [Moles/Vol] 100 mmol/L 98 - 10 7 mmol/L [place] CO2 [Moles/Vol] 26 mmol/L 20 - 31 mmol/L [place] Creatinine [Mass/Vol] 0.9 mg/dL 0.7 - 1.2 mg/dL [place] GFR >60 >60 mL/min [place] GFR Non- >60 >60 mL/min [place] GFR/1.73 sq M predicted among non-blacks MDRD (S/P/Bld) [Vol rate/Area] [place] Comment on above: Average GFR for 50-5 9 years old: 93 mL/min/1.73sq m Chronic Kidney Disease: <60 mL/min/1.73sq m Kidney failure: <15 mL/min/1.73sq m eGFR calculated using average adult body mass. Additional eGFR calculator available at: http://www.dabanniu.com/multiple_crcl_2012.htm GFR/1.73 sq M predicted among non-blacks MDRD (S/P/Bld) [Vol rate/Area] NOT REPORTED [place] Glucose [Mass/Vol] 227 mg/dL High 70 - 99 mg/dL [place] Interpretation and review of laboratory results Abnormal [place] Potassium [Moles/Vol] 3.6 mmol/L Low 3.7 - 5.3 mmol/L [place] Sodium [Moles/Vol] 136 mmol/L 135 - 144 mmol/L [place] Urea nitrogen [Mass/Vol] 12 mg/dL 6 - 20 mg/dL [place] Culture, Woundon 03-23-2020 Culture NORMAL SKIN VIRGEN Abnormal [place] Culture STREPTOCOCCI, BETA HEMOLYTIC GROUP B LIGHT GROWTH Abnormal [place] Direct Exam NO NEUTROPHILS SEEN [place] Direct Exam NO BACTERIA SEEN [place] Interpretation and review of laboratory results Abnormal [place] Special Requests NOT REPORTED [place] Specimen Description .FOOT LEFT [place] Glucose, Whole Bloodon 03-23 Glucose [Mass/Vol] 268 mg/dL High 65 - 99 mg/dL [place] Interpretation and review of laboratory results Abnormal [place] Glucose [Mass/Vol] 273 mg/dL High 65 - 99 mg/dL [place] Interpretation and review of laboratory results Abnormal [place] Glucose [Mass/Vol] 118 mg/dL High 65 - 99 mg/dL [place] Interpretation and review of laboratory results Abnormal [place] Glucose [Mass/Vol] 173 mg/dL High 65 - 99 mg/dL [place] Interpretation and review of laboratory results Abnormal [place] Vancomycin, troughon 021 Vancomycin Tr 15 ug/mL 10 - 20 ug/mL [place] Comment on above: Higher trough serum vancomycin concentrations of 15-20 ug/mL are recommended for complicated infections such as bacteremia, endocarditis, osteomyelitis, meningitis, and hospital acquired pneumonia. Vancomycin Trough Date last dose UNKNOWN [place] Vancomycin Trough Dose amount UNKNOWN [place] Vancomycin Trough Time last dose UNKNOWN [place] Basic Metabolic Panelon 03-11 Anion gap [Moles/Vol] 7 mmol/L Low 9 - 17 mmol/L [place] Bun/Cre Ratio 12 [place] Calcium [Mass/Vol] 9.6 mg/dL 8.6 - 10. 4 mg/dL [place] Chloride [Moles/Vol] 100 mmol/L 98 - 10 7 mmol/L [place] CO2 [Moles/Vol] 29 mmol/L 20 - 31 mmol/L [place] Creatinine [Mass/Vol] 0.78 mg/dL 0.7 - 1.2 mg/dL [place] GFR >60 >60 mL/min [place] GFR Non- >60 >60 mL/min [place] GFR/1.73 sq M predicted among non-blacks MDRD (S/P/Bld) [Vol rate/Area] NOT REPORTED [place] GFR/1.73 sq M predicted among non-blacks MDRD (S/P/Bld) [Vol rate/Area] [place] Comment on above: Average GFR for 50-5 9 years old: 93 mL/min/1.73sq m Chronic Kidney Disease: <60 mL/min/1.73sq m Kidney failure: <15 mL/min/1.73sq m eGFR calculated using average adult body mass. Additional eGFR calculator available at: http://www.AppLayer.Cogniscan/multiple_crcl_2011.htm Glucose [Mass/Vol] 193 mg/dL High 70 - 99 mg/dL [place] Interpretation and review of laboratory results Abnormal [place] Potassium [Moles/Vol] 3.6 mmol/L Low 3.7 - 5.3 mmol/L [place] Sodium [Moles/Vol] 136 mmol/L 135 - 144 mmol/L [place] Urea nitrogen [Mass/Vol] 9 mg/dL 6 - 20 mg/dL [place] CBC Auto Differentialon 03-11 Basophils (Bld) [#/Vol] 0.00 10*3/uL [place] Basophils/100 WBC (Bld) 1 % 0 - 2 % [place] Differential Type YES [place] Eosinophils (Bld) [#/Vol] 0.10 10*3/uL [place] Eosinophils/100 WBC (Bld) 2 % 0 - 5 % [place] Erythrocyte distribution width (RBC) [Ratio] 12.9 % 12.1 - 15.2 % [place] Hematocrit (Bld) [Volume fraction] 31.0 % Low 41 - 53 % [place] Hemoglobin (Bld) [Mass/Vol] 10.5 g/dL Low 13.5 - 17.5 g/dL [place] Interpretation and review of laboratory results Abnormal [place] Lymphocytes (Bld) [#/Vol] 1.50 10*3/uL [place] Lymphocytes/100 WBC (Bld) 26 % 13 - 44 % [place] MCH (RBC) [Entitic mass] 29.5 pg 26 - 34 pg [place] MCHC (RBC) [Mass/Vol] 33.9 g/dL 31 - 3 7 g/dL [place] MCV (RBC) [Entitic vol] 86.9 fL 80 - 100 fL [place] Monocytes (Bld) [#/Vol] 0.50 10*3/uL [place] Monocytes/100 WBC (Bld) 8 % 5 - 9 % [place] Platelet mean volume (Bld) [Entitic vol] NOT REPORTED 6 - 12 fL [place] Platelets (Bld) [#/Vol] 247 10*3/uL [place] Platelets (Bld) [#/Vol] NOT REPORTED [place] RBC (Bld) [#/Vol] 3.56 10*6/uL Low 4.5 - 5.9 m/uL [place] RBC morphology finding Nom (Bld) NOT REPORTED [place] Segmented neutrophils/100 WBC (Bld) 63 % 39 - 75 % [place] Segs Absolute 3.70 [place] WBC (Bld) [#/Vol] NOT REPORTED per 100 WBC [place] WBC (Bld) [#/Vol] 5.9 10*3/uL [place] WBC Morphology NOT REPORTED [place] Culture, [place] 03-22-2020 Culture STAPHYLOCOCCUS AUREUS MODERATE GROWTH Abnormal [place] Culture STREPTOCOCCI, BETA HEMOLYTIC GROUP B HEAVY GROWTH Abnormal [place] Culture This is a mixed culture of organisms, which may represent colonization or contamination. Notify the laboratory within 7 days for further workup. Susceptibilities have not been performed. Abnormal [place] Culture MULTIPLE SPECIES OF GRAM NEGATIVE BACTERIA, NO PREDOMINANT ORGANISM ISOLATED. Abnormal [place] Direct Exam NO NEUTROPHILS SEEN [place] Direct Exam Positive Abnormal [place] Direct Exam Negative Abnormal [place] Interpretation and review of laboratory results Abnormal [place] Special Requests NOT REPORTED [place] Specimen Description .FOOT [place] Glucose, Whole Bloodon 03-22 Glucose [Mass/Vol] 200 mg/dL High 65 - 99 mg/dL [place] Interpretation and review of laboratory results Abnormal [place] Glucose [Mass/Vol] 170 mg/dL High 65 - 99 mg/dL [place] Interpretation and review of laboratory results Abnormal [place] Glucose [Mass/Vol] 196 mg/dL High 65 - 99 mg/dL [place] Interpretation and review of laboratory results Abnormal [place] Glucose [Mass/Vol] 174 mg/dL High 65 - 99 mg/dL [place] Interpretation and review of laboratory results Abnormal [place] Otheron 03-22-2020 Immature granulocytes (Bld) [#/Vol] NOT REPORTED 0 % [place] Vancomycin, troughon 021 Interpretation and review of laboratory results Abnormal [place] Vancomycin Tr 9.7 ug/mL Low 10 - 20 ug/mL [place] Comment on above: Higher trough serum vancomycin concentrations of 15-20 ug/mL are recommended for complicated infections such as bacteremia, endocarditis, osteomyelitis, meningitis, and hospital acquired pneumonia. Vancomycin Trough Date last dose 03/21/2020 [place] Vancomycin Trough Dose amount 1250 MG [place] Vancomycin Trough Time last dose 1250 [place] Basic Metabolic Panel w/ Ref belle to MGon 03-21-2020 Anion gap [Moles/Vol] 8 mmol/L Low 9 - 17 mmol/L [place] Bun/Cre Ratio 9 [place] Calcium [Mass/Vol] 8.3 mg/dL Low 8.6 - 10. 4 mg/dL [place] Chloride [Moles/Vol] 100 mmol/L 98 - 10 7 mmol/L [place] CO2 [Moles/Vol] 27 mmol/L 20 - 31 mmol/L [place] Creatinine [Mass/Vol] 0.8 mg/dL 0.7 - 1.2 mg/dL [place] GFR >60 >60 mL/min [place] GFR Non- >60 >60 mL/min [place] GFR/1.73 sq M predicted among non-blacks MDRD (S/P/Bld) [Vol rate/Area] [place] Comment on above: Average GFR for 50-5 9 years old: 93 mL/min/1.73sq m Chronic Kidney Disease: <60 mL/min/1.73sq m Kidney failure: <15 mL/min/1.73sq m eGFR calculated using average adult body mass. Additional eGFR calculator available at: http://www.AppLayer.Cogniscan/multiple_crcl_2012.htm GFR/1.73 sq M predicted among non-blacks MDRD (S/P/Bld) [Vol rate/Area] NOT REPORTED [place] Glucose [Mass/Vol] 160 mg/dL High 70 - 99 mg/dL [place] Interpretation and review of laboratory results Abnormal [place] Potassium [Moles/Vol] 3.3 mmol/L Low 3.7 - 5.3 mmol/L [place] Sodium [Moles/Vol] 135 mmol/L 135 - 144 mmol/L [place] Urea nitrogen [Mass/Vol] 7 mg/dL 6 - 20 mg/dL [place] CBC auto differentialon 03-11 Basophils (Bld) [#/Vol] 0.00 10*3/uL [place] Basophils/100 WBC (Bld) 0 % 0 - 2 % M [place] Differential Type YES [place] Eosinophils (Bld) [#/Vol] 0.10 10*3/uL [place] Eosinophils/100 WBC (Bld) 1 % 0 - 5 % [place] Erythrocyte distribution width (RBC) [Ratio] 13.0 % 12.1 - 15.2 % [place] Hematocrit (Bld) [Volume fraction] 30.6 % Low 41 - 53 % [place] Hemoglobin (Bld) [Mass/Vol] 10.3 g/dL Low 13.5 - 17.5 g/dL [place] Interpretation and review of laboratory results Abnormal [place] Lymphocytes (Bld) [#/Vol] 1.70 10*3/uL [place] Lymphocytes/100 WBC (Bld) 22 % 13 - 44 % [place] MCH (RBC) [Entitic mass] 29.3 pg 26 - 34 pg [place] MCHC (RBC) [Mass/Vol] 33.6 g/dL 31 - 3 7 g/dL [place] MCV (RBC) [Entitic vol] 87.2 fL 80 - 100 fL [place] Monocytes (Bld) [#/Vol] 0.60 10*3/uL [place] Monocytes/100 WBC (Bld) 8 % 5 - 9 % [place] Platelet mean volume (Bld) [Entitic vol] NOT REPORTED 6 - 12 fL [place] Platelets (Bld) [#/Vol] NOT REPORTED [place] Platelets (Bld) [#/Vol] 221 10*3/uL [place] RBC (Bld) [#/Vol] 3.51 10*6/uL Low 4.5 - 5.9 m/uL [place] RBC morphology finding Nom (Bld) NOT REPORTED [place] Segmented neutrophils/100 WBC (Bld) 69 % 39 - 75 % [place] Segs Absolute 5.20 [place] WBC (Bld) [#/Vol] 7.5 10*3/uL [place] WBC (Bld) [#/Vol] NOT REPORTED per 100 WBC [place] WBC Morphology NOT REPORTED [place] Glucose, Whole Bloodon 03-21 Glucose [Mass/Vol] 150 mg/dL High 65 - 99 mg/dL [place] Interpretation and review of laboratory results Abnormal [place] Glucose [Mass/Vol] 202 mg/dL High 65 - 99 mg/dL [place] Interpretation and review of laboratory results Abnormal [place] Glucose [Mass/Vol] 153 mg/dL High 65 - 99 mg/dL [place] Interpretation and review of laboratory results Abnormal [place] Glucose [Mass/Vol] 155 mg/dL High 65 - 99 mg/dL [place] Interpretation and review of laboratory results Abnormal [place] Hemoglobin A1con 03-21-2020 Glucose [Mass/Vol] 355 mg/dL [place] Comment on above: The ADA and AACC rec ommend providing the estimated average glucose result to permit better patient understanding of their HBA1c result. HbA1c (Bld) [Mass fraction] 14.0 % High 4 - 6 % [place] Interpretation and review of laboratory results Abnormal [place] MRI FOOT RIGHT W WO CONTRAST on 03-21-2020 1. A 1.5 cm skin wound/ulcer plantar to the third proximal phalanx, with early osteomyelitis throughout the third proximal phalanx. 2. A skin wound/ulcer is also suspected lateral to the base of the fifth proximal phalanx, overlying a 1.6 cm area of hypointense signal, which may represent devitalized/necrotic subcutaneous soft tissue. There is surrounding subcutaneous soft tissue edema/enhancement throughout the lateral and dorsal aspect of the forefoot, which may represent cellulitis. No abscess is seen. 3. Early osteomyelitis is suspected in the fifth proximal phalanx. Mild bone marrow edema, which is most likely reactive, in the medial aspect of the fifth metatarsal head. 4. A small amount of fluid surrounds the fifth flexor digitorum tendons at the level of the phalanges, suggestive of tenosynovitis, which may be infectious or inflammatory. 5. Edema throughout the foot musculature, which is most likely due to chronic diabetic neuropathy, though the possibility of superimposed infectious myositis cannot be excluded. [place] CLINICAL HISTORY: Diabetic right foot ulcer, plantar to the third toe. Evaluate for deep infection, septic arthritis, or osteomyelitis. MRI RIGHT FOOT WITH AND WITHOUT CONTRAST: TECHNIQUE: Before and after the administration of 19 mL of IV MultiHance contrast, multiplanar long and short TR and TE images were obtained through the right forefoot, from the level of the metatarsal diaphyses through the distal phalanges. COMPARISON: Radiographs of 03/20/2020. FINDINGS: This MRI is mildly compromised by patient motion artifact. A 1.5 cm skin wound/ulcer is noted plantar to the third proximal phalanx. There is mild wispy hypointense T1 signal in the bone marrow of the base of the third proximal phalanx, with bone marrow edema throughout the third proximal phalanx, consistent with early osteomyelitis. A skin wound/ulcer is also suspected lateral to the base of the fifth proximal phalanx, overlying an approximately 1.6 cm AP by 1.2 cm craniocaudal by 1.5 cm transverse globular area of hypointense T1/STIR signal in the subcutaneous soft tissues, which may represent devitalized/necrotic soft tissue. There is surrounding subcutaneous soft tissue edema/enhancement throughout the lateral and dorsal aspect of the forefoot, which may represent cellulitis in the correct clinical setting. No abscess is seen. Mild wispy hypointense T1 signal is noted in the bone marrow of the base of the fifth proximal phalanx, with bone marrow edema throughout the fifth proximal phalanx, suggestive of early osteomyelitis. Mild bone marrow edema, which is most likely reactive, is noted in the medial aspect of the fifth metatarsal head. There is bony fusion of the fifth DIP joint, which is most likely due to normal anatomic variation. A small amount of fluid surrounds the fifth flexor digitorum tendons at the level of the phalanges, suggestive of tenosynovitis, which may be infectious or inflammatory. The visualized distal portions of the tendons appear otherwise intact. Edema is noted throughout the foot musculature, which is most likely due to chronic diabetic neuropathy, though the possibility of superimposed infectious myositis cannot be excluded. Mild first MTP joint osteoarthrosis is present, with small marginal osteophytes, and minimal subchondral bone edema in the central aspect of the first metatarsal head. The bone marrow is otherwise normal in signal, without signs of acute fracture. This case was placed in stat call report folder at the time dictation on 03/21/2020, at 1:[address] [facility], [facility] Incoming Radiant Results From [facility] - 03/21/2020 1:02 PM EST CLINICAL HISTORY: Diabetic right foot ulcer, plantar to the third toe. Evaluate for deep infection, septic arthritis, or osteomyelitis. MRI RIGHT FOOT WITH AND WITHOUT CONTRAST: TECHNIQUE: Before and after the administration of 19 mL of IV MultiHance contrast, multiplanar long and short TR and TE images were obtained through the right forefoot, from the level of the metatarsal diaphyses through the distal phalanges. COMPARISON: Radiographs of 03/20/2020. FINDINGS: This MRI is mildly compromised by patient motion artifact. A 1.5 cm skin wound/ulcer is noted plantar to the third proximal phalanx. There is mild wispy hypointense T1 signal in the bone marrow of the base of the third proximal phalanx, with bone marrow edema throughout the third proximal phalanx, consistent with early osteomyelitis. A skin wound/ulcer is also suspected lateral to the base of the fifth proximal phalanx, overlying an approximately 1.6 cm AP by 1.2 cm craniocaudal by 1.5 cm transverse globular area of hypointense T1/STIR signal in the subcutaneous soft tissues, which may represent devitalized/necrotic soft tissue. There is surrounding subcutaneous soft tissue edema/enhancement throughout the lateral and dorsal aspect of the forefoot, which may represent cellulitis in the correct clinical setting. No abscess is seen. Mild wispy hypointense T1 signal is noted in the bone marrow of the base of the fifth proximal phalanx, with bone marrow edema throughout the fifth proximal phalanx, suggestive of early osteomyelitis. Mild bone marrow edema, which is most likely reactive, is noted in the medial aspect of the fifth metatarsal head. There is bony fusion of the fifth DIP joint, which is most likely due to normal anatomic variation. A small amount of fluid surrounds the fifth flexor digitorum tendons at the level of the phalanges, suggestive of tenosynovitis, which may be infectious or inflammatory. The visualized distal portions of the tendons appear otherwise intact. Edema is noted throughout the foot musculature, which is most likely due to chronic diabetic neuropathy, though the possibility of superimposed infectious myositis cannot be excluded. Mild first MTP joint osteoarthrosis is present, with small marginal osteophytes, and minimal subchondral bone edema in the central aspect of the first metatarsal head. The bone marrow is otherwise normal in signal, without signs of acute fracture. This case was placed in stat call report folder at the time dictation on 03/21/2020, at 1:00 PM IMPRESSION: 1. A 1.5 cm skin wound/ulcer plantar to the third proximal phalanx, with early osteomyelitis throughout the third proximal phalanx. 2. A skin wound/ulcer is also suspected lateral to the base of the fifth proximal phalanx, overlying a 1.6 cm area of hypointense signal, which may represent devitalized/necrotic subcutaneous soft tissue. There is surrounding subcutaneous soft tissue edema/enhancement throughout the lateral and dorsal aspect of the forefoot, which may represent cellulitis. No abscess is seen. 3. Early osteomyelitis is suspected in the fifth proximal phalanx. Mild bone marrow edema, which is most likely reactive, in the medial aspect of the fifth metatarsal head. 4. A small amount of fluid surrounds the fifth flexor digitorum tendons at the level of the phalanges, suggestive of tenosynovitis, which may be infectious or inflammatory. 5. Edema throughout the foot musculature, which is most likely due to chronic diabetic neuropathy, though the possibility of superimposed infectious myositis cannot be excluded. [place] Magnesiumon 03-21-2020 Magnesium [Mass/Vol] 1.6 mg/dL 1.6 - 2 .6 mg/dL [place] Otheron 03-21-2020 Immature granulocytes (Bld) [#/Vol] NOT REPORTED [place] CBC Auto Differentialon 03-11 Basophils (Bld) [#/Vol] 0.10 10*3/uL [place] Basophils/100 WBC (Bld) 1 % 0 - 2 % M [place] Differential Type YES [place] Eosinophils (Bld) [#/Vol] 0.00 10*3/uL [place] Eosinophils/100 WBC (Bld) 0 % 0 - 5 % [place] Erythrocyte distribution width (RBC) [Ratio] 13.6 % 12.1 - 15.2 % [place] Hematocrit (Bld) [Volume fraction] 35.4 % Low 41 - 53 % [place] Hemoglobin (Bld) [Mass/Vol] 11.8 g/dL Low 13.5 - 17.5 g/dL [place] Interpretation and review of laboratory results Abnormal [place] Lymphocytes (Bld) [#/Vol] 1.40 10*3/uL [place] Lymphocytes/100 WBC (Bld) 13 % 13 - 44 % [place] MCH (RBC) [Entitic mass] 29.3 pg 26 - 34 pg [place] MCHC (RBC) [Mass/Vol] 33.4 g/dL 31 - 3 7 g/dL [place] MCV (RBC) [Entitic vol] 87.6 fL 80 - 100 fL [place] Monocytes (Bld) [#/Vol] 0.70 10*3/uL [place] Monocytes/100 WBC (Bld) 6 % 5 - 9 % M [place] Platelet mean volume (Bld) [Entitic vol] NOT REPORTED 6 - 12 fL [place] Platelets (Bld) [#/Vol] 253 10*3/uL [place] Platelets (Bld) [#/Vol] NOT REPORTED [place] RBC (Bld) [#/Vol] 4.04 10*6/uL Low 4.5 - 5.9 m/uL [place] RBC morphology finding Nom (Bld) NOT REPORTED [place] Segmented neutrophils/100 WBC (Bld) 80 % High 39 - 75 % [place] Segs Absolute 9.20 High [place] WBC (Bld) [#/Vol] 11.5 10*3/uL [place] WBC (Bld) [#/Vol] NOT REPORTED per 100 WBC [place] WBC Morphology NOT REPORTED [place] COVID-19on 03-20-2020 SARS-CoV-2, Rapid Not Detected Not Detected [place] Comment on above: Rapid NAAT: The specimen is NEGATIVE for SARS-CoV-2, the novel coronavirus associated with COVID-19. The ID NOW COVID-19 assay is designed to detect the virus that causes COVID-19 in patients with signs and symptoms of infection who are suspected of COVID-19. An individual without symptoms of COVID-19 and who is not shedding SARS-CoV-2 virus would expect to have a negative (not detected) result in this assay. Negative results should be treated as presumptive and, if inconsistent with clinical signs and symptoms or necessary for patient management, should be tested with an alternative molecular assay. Negative results do not preclude SARS-CoV-2 infection and should not be used as the sole basis for patient management decisions. Fact sheet for Healthcare Providers: https://www.fda.gov/media/625041/download Fact sheet for Patients: https://www.fda.gov/media/757720/download Methodology: Isothermal Nucleic Acid Amplification Source .THROAT [place] Comprehensive Metabolic Pane dayo 03-20-2020 Albumin [Mass/Vol] 3.8 g/dL 3.5 - 5.2 g/dL [place] Albumin/Globulin [Mass ratio] NOT REPORTED [place] ALP [Catalytic activity/Vol] 121 U/L 40 - 129 U/L [place] ALT [Catalytic activity/Vol] 11 U/L 5 - 41 U/L [place] Anion gap [Moles/Vol] 10 mmol/L 9 - 17 mmol/L [place] AST [Catalytic activity/Vol] 13 U/L <40 [place] Bilirubin Ql (U) 1.33 mg/dL High 0.3 - 1.2 mg/dL [place] Bun/Cre Ratio 11 [place] Calcium [Mass/Vol] 8.9 mg/dL 8.6 - 10. 4 mg/dL [place] Chloride [Moles/Vol] 97 mmol/L Low 98 - 10 7 mmol/L [place] CO2 [Moles/Vol] 27 mmol/L 20 - 31 mmol/L [place] Creatinine [Mass/Vol] 0.94 mg/dL 0.7 - 1.2 mg/dL [place] GFR >60 >60 mL/min [place] GFR Non- >60 >60 mL/min [place] GFR/1.73 sq M predicted among non-blacks MDRD (S/P/Bld) [Vol rate/Area] [place] Comment on above: Average GFR for 50-5 9 years old: 93 mL/min/1.73sq m Chronic Kidney Disease: <60 mL/min/1.73sq m Kidney failure: <15 mL/min/1.73sq m eGFR calculated using average adult body mass. Additional eGFR calculator available at: http://www.dabanniu.com/multiple_crcl_2012.htm GFR/1.73 sq M predicted among non-blacks MDRD (S/P/Bld) [Vol rate/Area] NOT REPORTED [place] Glucose [Mass/Vol] 244 mg/dL High 70 - 99 mg/dL [place] Interpretation and review of laboratory results Abnormal [place] Potassium [Moles/Vol] 3.6 mmol/L Low 3.7 - 5.3 mmol/L [place] Protein [Mass/Vol] 7.1 g/dL 6.4 - 8.3 g/dL [place] Sodium [Moles/Vol] 134 mmol/L Low 135 - 144 mmol/L [place] Urea nitrogen [Mass/Vol] 10 mg/dL 6 - 20 mg/dL [place] Glucose, Whole Bloodon 03-20 Glucose [Mass/Vol] 203 mg/dL High 65 - 99 mg/dL [place] Interpretation and review of laboratory results Abnormal [place] Glucose [Mass/Vol] 178 mg/dL High 65 - 99 mg/dL [place] Interpretation and review of laboratory results Abnormal [place] Glucose [Mass/Vol] 217 mg/dL High 65 - 99 mg/dL [place] Interpretation and review of laboratory results Abnormal [place] Glucose [Mass/Vol] 187 mg/dL High 65 - 99 mg/dL [place] Interpretation and review of laboratory results Abnormal [place] Glucose [Mass/Vol] 209 mg/dL High 65 - 99 mg/dL [place] Interpretation and review of laboratory results Abnormal [place] Lactic Acidon 03-20-2020 Lactate [Moles/Vol] 2 mmol/L 0.5 - 2. 2 mmol/L [place] Otheron 03-20-2020 SARS-CoV-2 [place] Immature granulocytes (Bld) [#/Vol] NOT REPORTED 0 % [place] XR FOOT RIGHT (MIN 3 VIEWS)o n 03-20-2020 1. No osseous abnormality is noted. 2. There is mild diffuse soft tissue swelling. [place] [facility] Incoming Radiant Results From [employer] - 03/20/2020 1:10 AM EST RIGHT FOOT 3 VIEWS HISTORY: Large open wound plantar aspect right foot COMPARISON: 02/21/2017 FINDINGS: The osseous structures are adequately mineralized. No fracture, dislocation, or other acute osseous abnormality is noted. There is no conventional radiographic evidence of osteomyelitis. There is mild diffuse soft tissue swelling about the metatarsals. IMPRESSION: 1. No osseous abnormality is noted. 2. There is mild diffuse soft tissue swelling. [facility] RIGHT FOOT 3 VIEWS HISTORY: Large open wound plantar aspect right foot COMPARISON: 02/21/2017 FINDINGS: The osseous structures are adequately mineralized. No fracture, dislocation, or other acute osseous abnormality is noted. There is no conventional radiographic evidence of osteomyelitis. There is mild diffuse soft tissue swelling about the metatarsals. [facility] Comprehensive Metabolic Pane lOrdered By: Sara Lester on 03-12-2019 Albumin [Mass/Vol] 4.9 g/dL 3.5 - 5.2 g/dL [employer] Phone: Albumin/Globulin Ratio NOT REPORTED [employer] Phone: ALP [Catalytic activity/Vol] 84 U/L 40 - 129 U/L [employer] Phone: ALT [Catalytic activity/Vol] 22 U/L 5 - 41 U/L [employer] Phone: Anion gap [Moles/Vol] 15 mmol/L 9 - 17 mmol/L [employer] Phone: AST [Catalytic activity/Vol] 28 U/L <40 [employer] Phone: Bilirubin [Mass/Vol] 1.02 mg/dL 0.3 - 1 .2 mg/dL [employer] Phone: Bun/Cre Ratio 13 [employer] Phone: Calcium [Mass/Vol] 10.8 mg/dL High 8.6 - 10. 4 mg/dL [employer] Phone: Chloride [Moles/Vol] 101 mmol/L 98 - 10 7 mmol/L [employer] Phone: CO2 [Moles/Vol] 24 mmol/L 20 - 31 mmol/L [employer] Phone: Creatinine [Mass/Vol] 0.94 mg/dL 0.7 - 1.2 mg/dL [employer] Phone: GFR >60 >60 mL/min [employer] Phone: GFR Comment [employer] Phone: Comment on above: Average GFR for 50-5 9 years old: 93 mL/min/1.73sq m Chronic Kidney Disease: <60 mL/min/1.73sq m Kidney failure: <15 mL/min/1.73sq m eGFR calculated using average adult body mass. Additional eGFR calculator available at: http://www.dabanniu.com/multiple_crcl_2012.htm GFR Non- >60 >60 mL/min [employer] Phone: GFR Staging NOT REPORTED [employer] Phone: Glucose [Mass/Vol] 61 mg/dL Low 70 - 99 mg/dL [employer] Phone: Interpretation and review of laboratory results Abnormal [employer] Phone: Potassium [Moles/Vol] 4.0 mmol/L 3.7 - 5.3 mmol/L [employer] Phone: Protein [Mass/Vol] 7.8 g/dL 6.4 - 8.3 g/dL [employer] Phone: Sodium [Moles/Vol] 140 mmol/L 135 - 144 mmol/L [employer] Phone: Urea nitrogen [Mass/Vol] 12 mg/dL 6 - 20 mg/dL [employer] Phone: Hemoglobin [id number] By: Moises Lester on 03-12-2019 Glucose [Mass/Vol] 203 mg/dL [employer] Phone: Comment on above: The ADA and AACC rec ommend providing the estimated average glucose result to permit better patient understanding of their HBA1c result. HbA1c (Bld) [Mass fraction] 8.7 % High 4.8 - 5.9 % [employer] Phone: Interpretation and review of laboratory results Abnormal [employer] Phone: Lipid PanelOrdered By: Lilia Lester on 03-12-2019 Cholesterol [Mass/Vol] 109 mg/dL <200 [employer] Phone: Comment on above: Cholesterol Guidelines: <200 Desirable 200-240 Borderline >240 Undesirable Cholesterol in HDL [Mass/Vol] 58 mg/dL >40 [facility]: Comment on above: HDL Guidelines: <40 Undesirable 40-59 Borderline >59 Desirable Cholesterol in LDL [Mass/Vol] 32 mg/dL 0 - 130 mg/dL [employer] Phone: Comment on above: LDL Guidelines: <100 Desirable 100-129 Near to/above Desirable 130-159 Borderline >159 Undesirable Direct (measured) LDL and calculated LDL are not interchangeable tests. Cholesterol.total/Choles terol in HDL [Mass ratio] 1.9 {ratio} <5 [facility] Phone: Triglyceride [Mass/Vol] 93 mg/dL <[address] [facility]: Comment on above: Triglyceride Guidelines: <150 Desirable 150-199 Borderline 200-499 High >499 Very high Based on AHA Guidelines for fasting triglyceride, December 2011. VLDL NOT REPORTED 1 - 30 mg/dL [employer] Phone: Patient Fasting?Ordered By: Sara Lester on 03-12-2019 Patient Fasting? yes [employer] Phone: Comprehensive Metabolic Pane dayo 10-20-2018 Albumin [Mass/Vol] 4.1 g/dL 3.5 - 5.2 g/dL [facility] [place] Albumin/Globulin [Mass ratio] NOT REPORTED [facility] [employer] [place] ALP [Catalytic activity/Vol] 98 U/L 40 - 129 U/L [place] ALT [Catalytic activity/Vol] 9 U/L 5 - 41 U/L [place] Anion gap [Moles/Vol] 13 mmol/L 9 - 17 mmol/L [place] AST [Catalytic activity/Vol] 12 U/L <40 [place] Bilirubin Ql (U) 0.74 mg/dL 0.3 - 1.2 mg/dL [place] Bun/Cre Ratio 8 Low [place] Calcium [Mass/Vol] 9.5 mg/dL 8.6 - 10. 4 mg/dL [place] Chloride [Moles/Vol] 98 mmol/L 98 - 10 7 mmol/L [place] CO2 [Moles/Vol] 25 mmol/L 20 - 31 mmol/L [place] Creatinine [Mass/Vol] 0.75 mg/dL 0.7 - 1.2 mg/dL [place] GFR >60 >60 mL/min [place] GFR Non- >60 >60 mL/min [place] GFR/1.73 sq M predicted among non-blacks MDRD (S/P/Bld) [Vol rate/Area] [place] Comment on above: Average GFR for 50-5 9 years old: 93 mL/min/1.73sq m Chronic Kidney Disease: <60 mL/min/1.73sq m Kidney failure: <15 mL/min/1.73sq m eGFR calculated using average adult body mass. Additional eGFR calculator available at: http://www.[employer].Cogniscan/multiple_crcl_2012.htm GFR/1.73 sq M predicted among non-blacks MDRD (S/P/Bld) [Vol rate/Area] NOT REPORTED [place] Glucose [Mass/Vol] 440 mg/dL Critically high 70 - 9 9 mg/dL [place] Interpretation and review of laboratory results Abnormal [place] Potassium [Moles/Vol] 3.3 mmol/L Low 3.7 - 5.3 mmol/L [place] Protein [Mass/Vol] 7.4 g/dL 6.4 - 8.3 g/dL [place] Sodium [Moles/Vol] 136 mmol/L 135 - 144 mmol/L [place] Urea nitrogen [Mass/Vol] 6 mg/dL 6 - 20 mg/dL [place] Hemoglobin A1Con 10-20-2018 Glucose [Mass/Vol] 303 mg/dL [place] Comment on above: The ADA and AACC rec ommend providing the estimated average glucose result to permit better patient understanding of their HBA1c result. HbA1c (Bld) [Mass fraction] 12.2 % High 4.8 - 5.9 % [place] Interpretation and review of laboratory results Abnormal [place] Microalbumin / Creatinine Ur ine Ratioon 10-20-2018 Albumin/Creatinine DL <= 20 mg/L (24H U) [Mass ratio] <12 <21 mg/L [place] Albumin/Creatinine DL <= 20 mg/L (U) [Ratio] CANNOT BE CALCULATED <17 mcg/mg creat [place] Creatinine, Ur 47.6 mg/dL 39 - 259 mg/dL [place] Vital Signs Date Time Vital Sign Value Performing Clinician Charles jean-baptiste 07-05-2023 11:16-0400 Body height 175.3 cm Festus Tolentino MD Work Phone: [facility] 07-05-2023 08:57-0400 SaO2% (BldA) [Mass fraction] 98 % Festus Tolentino MD Work Phone: [facility] 07-05-2023 07:40-0400 Body temperature 98.1 [degF] Festus Tolentino MD Work Phone: [facility] 07-05-2023 07:40-0400 Diastolic blood pressure 67 mm[Hg] Festus Tolentino MD Work Phone: [facility] 07-05-2023 07:40-0400 Heart rate 88 /min Festus Tolentino MD Work Phone: [facility] 07-05-2023 07:40-0400 Respiratory rate 16 /min Festus Tolentino MD Work Phone: [facility] 07-05-2023 07:40-0400 Systolic blood pressure 110 mm[Hg] Festus Tolentino MD Work Phone: [facility] 07-05-2023 06:00-0400 Body mass index (BMI) [Ratio] 28.26 kg/m2 Festus Tolentino MD Work Phone: [facility] 07-05-2023 06:00-0400 Body weight 86.8 kg Festus Tolentino MD Work Phone: [facility] 10-03-2022 14:03-[address] [facility] 10-03-2022 14:03-[address] [facility] 10-03-2022 14:00-[address] [facility] 10-03-2022 14:00-0400 Body temperature 98.06 [degF] [facility] 10-03-2022 14:00-0400 Diastolic blood pressure 70 mm[Hg] [facility] 10-03-2022 14:00-0400 Heart rate 88 /min [facility] 10-03-2022 14:00-[address] [facility] 10-03-2022 14:00-0400 Respiratory rate 17 /min [facility] 10-03-2022 14:00-0400 SaO2% (BldA) [Mass fraction] 97 % [facility] 10-03-2022 14:00-0400 Systolic blood pressure 118 mm[Hg] [facility] 10-03-2022 13:27-[address] [facility] 10-03-2022 12:27-0400 [facility]-03-[facility] 08:00-0400 Diastolic blood pressure 72 mm[Hg] [facility] 10-03-2022 08:00-0400 Heart rate 89 /min [facility] 10-03-2022 08:00-0400 SaO2% (BldA) [Mass fraction] 94 % [facility] 10-03-2022 08:00-0400 Systolic blood pressure 113 mm[Hg] [facility] 10-02-2022 20:00-0400 Respiratory rate 16 /min [facility] 10-02-2022 19:24-0400 Heart rate 96 /min [facility] 10-02-2022 19:24-0400 SaO2% (BldA) [Mass fraction] 96 % [facility] 10-02-2022 19:24-0400 Diastolic blood pressure 73 mm[Hg] yang [facility] 10-02-2022 19:24-0400 Mean blood pressure 89 mm[Hg] [facility] 10-02-2022 19:24-0400 Systolic blood pressure 121 mm[Hg] yang [facility] 10-02-2022 19:23-0400 Body temperature 98.24 [degF] [facility] 10-02-2022 16:30-0400 Body temperature 97.88 [degF] [facility] 10-02-2022 16:30-0400 Mean blood pressure 81 mm[Hg] [facility] 10-02-2022 16:00-[address] [facility] 10-02-2022 14:22-0400 Mean blood pressure 91 mm[Hg] [facility] 10-02-2022 14:21-0400 Body temperature 97.88 [degF] [facility] 10-02-2022 12:00-0400 Mean blood pressure 94 mm[Hg] [facility] 10-02-2022 11:54-0400 gluc 289 mg/dL [facility] 10-02-2022 11:54-0400 Mean blood pressure 102 mm[Hg] [facility] 10-02-2022 11:54-0400 Respiratory rate 20 /min [facility] 10-02-2022 11:29-0400 Body temperature 97.88 [degF] [facility] 10-02-2022 11:29-0400 Heart rate 103 /min [facility] 10-02-2022 10:25-0400 Mean blood pressure 79 mm[Hg] [facility] 10-02-2022 09:30-0400 Heart rate 120 /min [facility] 08-14-2022 10:07-0400 Diastolic blood pressure 69 mm[Hg] Bonifacio Blayne [facility] 08-14-2022 10:07-0400 Heart rate 108 /min Bonifacio Blayne [facility] 08-14-2022 10:07-0400 Systolic blood pressure 120 mm[Hg] Bonifacio Blayne [facility] 08-14-2022 10:03-0400 Hourly Rounding Bonifacio Blayne [facility] 08-14-2022 10:03-0400 Promise to Return Bonifacio Blayne [facility] 08-14-2022 09:15-0400 Hourly Rounding Bonifacio Blayne [facility] 08-14-2022 09:15-0400 Promise to Return Bonifacio Blayne [facility] 08-14-2022 08:37-0400 gluc 106 mg/dL Bonifacio Blayen [facility] 08-14-2022 08:37-0400 Hourly Rounding Bonifacio Blayne [facility] 08-14-2022 08:37-0400 Promise to Return Bonifacio Blayne [facility] 08-14-2022 08:06-0400 Heart rate 104 /min Bonifacio Blayne [facility] 08-14-2022 08:06-0400 SaO2% (BldA) [Mass fraction] 91 % Bonifacio Blayne [facility] 08-14-2022 08:04-0400 Diastolic blood pressure 69 mm[Hg] Bonifacio Blayne [facility] 08-14-2022 08:04-0400 Mean blood pressure 86 mm[Hg] Bonifacio Blayne [facility] 08-14-2022 08:04-0400 Systolic blood pressure 120 mm[Hg] Bonifacio Blayne [facility] 08-14-2022 08:04-0400 Body temperature 98.6 [degF] Bonifacio Blay[facility] 08-14-2022 08:00-0400 gluc 98 mg/dL Bonifacio Blayne [facility] 08-14-2022 07:52-0400 Heart rate 100 /min Bonifacio Blayne [facility] 08-14-2022 07:52-0400 Respiratory rate 18 /min Bonifacio Blayne [facility] 08-14-2022 07:47-0400 Heart rate 98 /min Bonifacio Blayne [facility] 08-14-2022 07:47-0400 Respiratory rate 18 /min Bonifacio Blayne [facility] 08-14-2022 00:25-0400 Body temperature 97.88 [degF] Bonifacio Blayne [facility] 08-14-2022 00:25-0400 Diastolic blood pressure 62 mm[Hg] Bonifacio Blayne [facility] 08-14-2022 00:25-0400 Respiratory rate 16 /min Bonifacio Blayne [facility] 08-14-2022 00:25-0400 SaO2% (BldA) [Mass fraction] 97 % Bonifacio Blayne [facility] 08-14-2022 00:25-0400 Systolic blood pressure 110 mm[Hg] Bonifacio Blayne [facility] 08-13-2022 19:58-0400 SaO2% (BldA) [Mass fraction] 97 % Bonifacio Blayne [facility] 08-13-2022 17:04-0400 gluc 79 mg/dL Bonifacio Blayne [facility] 08-13-2022 16:40-0400 Body temperature 98.42 [degF] Bonifacio Blayne [facility] 08-13-2022 16:40-0400 Mean blood pressure 93 mm[Hg] Bonifacio Blayne [facility] 08-13-2022 11:24-0400 Mean blood pressure 98 mm[Hg] Bonifacio Blayne [facility] 08-13-2022 08:57-0400 Heart rate 111 /min Bonifacio Blayen [facility] 08-13-2022 01:41-0400 Mean blood pressure 93 mm[Hg] Bonifacio Blayne [facility] 08-12-2022 10:05-0400 Heart rate 110 /min Bonifacio Blayne [facility] 08-12-2022 00:00-0400 Blood Pressure Location Bonifacio Blayne [facility] 08-12-2022 00:00-0400 Body temperature 98.42 [degF] Bonifacio Blayne [facility] 08-12-2022 00:00-0400 Mean blood pressure 89 mm[Hg] Bonifacio Blayne [facility] 08-11-2022 15:44-0400 Body temperature 96.98 [degF] Bonifacio Blayne [facility] 08-10-2022 07:00-0400 Blood Pressure Location Bonifacio Blayne [facility] 08-10-2022 05:00-0400 Mean blood pressure 80 mm[Hg] Bonifacio Blayne [facility] 08-09-2022 19:03-0400 Heart rate 99 /min Bonifacio Blayne [facility] 08-09-2022 18:33-0400 Respiratory rate 19 /min Bonifacio Blayne [facility] 08-09-2022 18:00-0400 Respiratory rate 20 /min Bonifacio Blayne [facility] 08-09-2022 17:30-0400 Respiratory rate 22 /min Bonifacio Blayne [facility] 08-09-2022 16:10-0400 SaO2% (BldA) [Mass fraction] 88.3 % Bonifacio Blayne [facility] [employer] 08-09-2022 15:00-0400 Heart rate 125 /min Bonifacio Cisneros [facility] 06-30-2022 09:07-0400 Heart rate 98 /min Cass Harrison MD Work Phone: [employer] 06-30-2022 09:07-0400 Respiratory rate 18 /min Cass Harrison MD Work Phone: [employer] 06-30-2022 09:07-0400 SaO2% (BldA) [Mass fraction] 97 % Cass Harrison MD Work Phone: [employer] 06-30-2022 08:20-0400 Body temperature 98.2 [degF] Cass Harrison MD Work Phone: [employer] 06-30-2022 08:20-0400 Diastolic blood pressure 66 mm[Hg] Cass Harrison MD Work Phone: [employer] 06-30-2022 08:20-0400 Systolic blood pressure 112 mm[Hg] Cass Harrison MD Work Phone: [employer] 06-30-2022 06:00-0400 Body mass index (BMI) [Ratio] 31.19 kg/m2 Cass Harrison MD Work Phone: [employer] 06-30-2022 06:00-0400 Body weight 95.8 kg Cass Harrison MD Work Phone: [employer] 06-27-2022 10:12-0400 Body height 175.3 cm Cass Harrison MD Work Phone: [employer] 06-21-2022 13:50-0400 Diastolic blood pressure 78 mm[Hg] Cass Harrison MD Work Phone: [employer] 06-21-2022 13:50-0400 Heart rate 94 /min Cass Harrison MD Work Phone: [employer] 06-21-2022 13:50-0400 Respiratory rate 18 /min Cass Harrison MD Work Phone: [employer] 06-21-2022 13:50-0400 SaO2% (BldA) [Mass fraction] 95 % Cass Harrison MD Work Phone: [employer] 06-21-2022 13:50-0400 Systolic blood pressure 113 mm[Hg] Cass Harrison MD Work Phone: [facility] [employer] 06-21-2022 11:12-0400 Body height 175.3 cm Cass Harrison MD Work Phone: [facility] [employer] 06-21-2022 11:12-0400 Body mass index (BMI) [Ratio] 31.04 kg/m2 Cass Harrison MD Work Phone: [employer] 06-21-2022 11:12-0400 Body temperature 98.1 [degF] Cass Harrison MD Work Phone: [facility] [employer] 06-21-2022 11:12-0400 Body weight 95.35 kg Cass Harrison MD Work Phone: [facility] [employer] 04-18-2021 21:04-0500 Body height 175.3 cm Festus Tolentino MD Work Phone: [employer] 04-18-2021 21:04-0500 Body mass index (BMI) [Ratio] 28.06 kg/m2 Festus Tolentino MD Work Phone: [employer] 04-18-2021 21:04-0500 Body temperature 98.6 [degF] Festus Tolentino MD Work Phone: [employer] 04-18-2021 21:04-0500 Body weight 86.18 kg Festus Tolentino MD Work Phone: [employer] 04-18-2021 21:04-0500 Diastolic blood pressure 73 mm[Hg] Festus Tolentino MD Work Phone: [employer] 04-18-2021 21:04-0500 Heart rate 124 /min Festus Tolentino MD Work Phone: [employer] 04-18-2021 21:04-0500 Respiratory rate 20 /min Festus Tloentino MD Work Phone: [employer] 04-18-2021 21:04-0500 SaO2% (BldA) [Mass fraction] 99 % Festus Tolentino MD Work Phone: [employer] 04-18-2021 21:04-0500 Systolic blood pressure 117 mm[Hg] Festus Tolentino MD Work Phone: [employer] 11-30-2020 16:28-0400 Body temperature 97.5 [degF] Festus Tolentino MD Work Phone: [employer] Work Phone: 11-30-2020 16:22-0400 Body height 175.3 cm Festus Tolentino MD Work Phone: [employer] Work Phone: 11-30-2020 16:22-0400 Body mass index (BMI) [Ratio] 28.31 kg/m2 Festus Tolentino MD Work Phone: [employer] Work Phone: 11-30-2020 16:22-0400 Body weight 86.95 kg Festus Tolentino MD Work Phone: [employer] Work Phone: 11-30-2020 16:22-0400 Diastolic blood pressure 61 mm[Hg] Festus Tolentino MD Work Phone: [employer] Work Phone: 11-30-2020 16:22-0400 Heart rate 119 /min Festus Tolentino MD Work Phone: [employer] Work Phone: 11-30-2020 16:22-0400 Respiratory rate 18 /min Festus Tolentino MD Work Phone: [employer] Work Phone: 11-30-2020 16:22-0400 SaO2% (BldA) [Mass fraction] 97 % Festus Tolentino MD Work Phone: [facility] Work Phone: 11-30-2020 16:22-0400 Systolic blood pressure 116 mm[Hg] Festus Tolentino MD Work Phone: [facility] Work Phone: 05-16-2020 09:04-0500 BP Diastolic 85 mm[Hg] [facility] Work Phone: 05-16-2020 09:04-0500 BP Systolic 140 mm[Hg] [facility] Work Phone: 05-16-2020 09:04-0500 Pulse (Heart Rate) 93 /min [facility] Work Phone: 05-16-2020 09:04-0500 Pulse Oximetry 98 % [facility] Work Phone: 05-16-2020 09:04-0500 Respiratory Rate 20 /min [facility] Work Phone: 05-16-2020 08:28-0500 Body Temperature 97.9 [degF] [facility] Work Phone: 05-16-2020 06:41-0500 BMI (Body Mass Index) 30.85 kg/m2 [facility] [employer] Work Phone: 05-16-2020 06:41-0500 Body weight 94.76 kg [facility] Work Phone: 05-16-2020 06:41-0500 Height 175.3 cm [facility] Work Phone: 03-26-2020 09:40-0500 Pulse Oximetry 96 % [facility] [place] 03-26-2020 07:45-0500 Body Temperature 97.5 [degF] [facility] 03-26-2020 07:45-0500 BP Diastolic 69 mm[Hg] [facility] [place] 03-26-2020 07:45-0500 BP Systolic 110 mm[Hg] [place] 03-26-2020 07:45-0500 Pulse (Heart Rate) 88 /min [place] 03-26-2020 07:45-0500 Respiratory Rate 16 /min [place] 03-26-2020 06:00-0500 BMI (Body Mass Index) 29 kg/m2 [facility] [place] 03-26-2020 06:00-0500 Body weight 91.67 kg [place] 03-23-2020 06:15-0500 Height 177.8 cm [facility] [place] Encounters Encounter Date Encounter Type Care Provider Facility Start: 08-20-2023 ambulatory Elder Denson Facility:[facility] Start: 08-20-2023 End: 08-20-2023 Patient encounter procedure Elder Akmarion [facility] Start: 07-09-2023 End: 07-09-2023 ambulatory FESTUS PEACE Not Available Start: 07-04-2023 End: 07-04-2023 ambulatory FESTUS PEACE Not Available Start: 07-03-2023 End: 07-05-2023 Evaluation and management of inpatient SARA Silvano [facility] Start: 07-03-2023 End: 07-05-2023 Evaluation and management of inpatient Festus Tolentino MD Work Phone: [facility] Comment on above: Diabetic ulcer of le ft midfoot associated with type 2 diabetes mellitus, unspecified ulcer stage (HCC) (Primary Dx); Foot ulcer, left, limited to breakdown of skin ([facility]) Start: 06-06-2023 End: 06-09-2023 ambulatory [facility] Start: 06-06-2023 End: 06-08-2023 Subsequent hospital visit by physician Sara Lester DO Work Phone: [facility] Comment on above: HALEY (acute kidney in jury) ([facility]) Start: 05-21-2023 End: 05-22-2023 ambulatory [facility] Start: 02-13-2023 End: 02-14-2023 ambulatory [facility] Start: 01-17-2023 End: 01-20-2023 [facility] Start: 12-26-2022 End: 12-26-2022 ambulatory Zenon R Dolce Facility:[facility] Start: 12-20-2022 End: 12-21-2022 ambulatory [facility] Start: 12-11-2022 End: 12-11-2022 ambulatory Zenon R Dolce Facility:[facility] Start: 12-11-2022 End: 12-11-2022 Patient encounter procedure Zenon R Dolce [facility] Start: 12-05-2022 End: 12-05-2022 ambulatory Zenon R Dolce Facility:[facility] Start: 11-28-2022 End: 11-28-2022 ambulatory Zenon R Dolce Facility:[facility] Start: 11-28-2022 End: 11-28-2022 Patient encounter procedure Zenon R Dolce [facility] Start: 11-21-2022 End: 11-21-2022 ambulatory Zenon R Dolce Facility:[facility] Start: 11-21-2022 End: 11-21-2022 Patient encounter procedure Zenon R Dolce [facility] Start: 11-06-2022 End: 11-06-2022 ambulatory Zenon R Dolce Facility:[facility] Start: 11-06-2022 End: 11-06-2022 Patient encounter procedure Zenon R Wilmerce [facility] Start: 11-01-2022 End: 02-24-2023 ambulatory Bill Ochoa Facility:[facility] Start: 11-01-2022 End: 02-24-2023 Recurring Bill Ochoa [facility] Start: 10-31-2022 End: 10-31-2022 ambulatory Zenon R Dolce Facility:[facility] Start: 10-31-2022 End: 10-31-2022 Patient encounter procedure Zenon R Wil[place] [facility] Start: 10-25-2022 End: 10-25-2022 ambulatory Bill Ochoa Facility:[facility] Start: 10-25-2022 End: 10-25-2022 Patient encounter procedure Bill Ochoa [facility] Start: 10-17-2022 End: 10-17-2022 ambulatory Zenon R Dolce Facility:[facility] Start: 10-17-2022 End: 10-17-2022 Patient encounter procedure Zenon R Wilmerce [facility] Start: 10-15-2022 End: 10-15-2022 ambulatory Zenon R Dolce Facility:[facility] Start: 10-15-2022 End: 10-15-2022 Patient encounter procedure Zenon R Dolce [facility] Start: 10-10-2022 End: 10-10-2022 ambulatory Zenon R Dolce Facility:[facility] Start: 10-10-2022 End: 10-10-2022 Patient encounter procedure Zenon R Dolce [facility] Start: 10-02-2022 End: 10-03-2022 Observation Anthony Vanceawi [facility] Start: 10-02-2022 End: 10-03-2022 ambulatory Anthony Mansfield Facility:[facility] Start: 09-26-2022 End: 09-26-2022 ambulatory Zenon R Dolce Facility:[facility] Start: 09-26-2022 End: 09-26-2022 Patient encounter procedure Zenon R Dolce [facility] Start: 09-24-2022 End: 09-24-2022 ambulatory Zenon R Dolce Facility:[facility] Start: 09-24-2022 End: 09-24-2022 Patient encounter procedure Zenon R Wil[place] [facility] Start: 09-21-2022 End: 09-21-2022 ambulatory Zenon R Dolce Facility:[facility] Start: 09-21-2022 End: 09-21-2022 Patient encounter procedure Zenon R Dolce [facility] Start: 09-19-2022 End: 09-19-2022 ambulatory Zenon R Dolce Facility:[facility] Start: 09-19-2022 End: 09-19-2022 Patient encounter procedure Zenon R Dolce [facility] Start: 09-17-2022 End: 09-17-2022 ambulatory Zenon R Dolce Facility:[facility] Start: 09-17-2022 End: 09-17-2022 Patient encounter procedure Zenon R Dolce [facility] Start: 09-14-2022 End: 09-15-2022 ambulatory Zenon R Dolce Facility:[facility] Start: 09-14-2022 End: 09-15-2022 Pre-admission assessment Zenon R Dolce [facility] Start: 09-12-2022 End: 09-12-2022 ambulatory Zenon R Dolce Facility:[facility] Start: 09-12-2022 End: 09-13-2022 Pre-admission assessment Zenon R Wilmerce [facility] Start: 09-10-2022 End: 09-10-2022 ambulatory Zenon R Dolce Facility:[facility] Start: 09-10-2022 End: 09-11-2022 Pre-admission assessment Zenon R [place] [facility] Start: 09-07-2022 End: 09-07-2022 ambulatory Zenon R Dolce Facility:[facility] Start: 09-07-2022 End: 09-07-2022 Patient encounter procedure Zenon R [place] [facility] Start: 09-05-2022 End: 09-05-2022 ambulatory Zenon R Dolce Facility:[facility] Start: 09-03-2022 End: 09-03-2022 ambulatory Zenon R Dolce Facility:[facility] Start: 09-03-2022 End: 09-03-2022 Patient encounter procedure Zenon R Dolce [facility] Start: 08-31-2022 End: 08-31-2022 ambulatory Zenon R Dolce Facility:[facility] Start: 08-31-2022 End: 08-31-2022 Patient encounter procedure Zenon R Dolce [facility] Start: 08-29-2022 End: 08-29-2022 ambulatory Zenon R Dolce Facility:[facility] Start: 08-29-2022 End: 08-29-2022 Patient encounter procedure Zenon R Dolce [facility] Start: 08-28-2022 End: 08-29-2022 ambulatory [facility] Start: 08-27-2022 End: 08-27-2022 ambulatory Zenon R Dolce Facility:[facility] Start: 08-27-2022 End: 08-27-2022 Patient encounter procedure Zenon R Dolce [facility] Start: 08-24-2022 End: 08-24-2022 ambulatory Zenon Santiago Facility:[facility] Start: 08-24-2022 End: 08-24-2022 Patient encounter procedure Zenon Santiago [facility] Start: 08-22-2022 End: 08-22-2022 ambulatory Zenon Santiago Facility:[facility] Start: 08-20-2022 End: 08-20-2022 ambulatory Zenon Santiago Facility:[facility] Start: 08-20-2022 End: 08-20-2022 Patient encounter procedure Zenon Santiago [facility] Start: 08-15-2022 End: 08-15-2022 Patient encounter procedure Zenon Santiago [facility] Start: 08-09-2022 End: 08-14-2022 Evaluation and management of inpatient Boinfacio Cisneros [facility] Start: 07-05-2022 End: 07-05-2022 Lab Drop off Zenon Santiago [facility] Start: 06-30-2022 End: 06-30-2022 Subsequent hospital visit by physician Sara Lester DO Work Phone: [facility] Start: 06-26-2022 End: 06-30-2022 Evaluation and management of inpatient Cass Harrison MD Work Phone: [facility]LE[facility] Comment on above: Osteomyelitis of gre at toe (HCC) (Primary Dx); Cellulitis of foot; Hyperglycemia Start: 06-21-2022 End: 06-21-2022 Emergency department patient visit Cass Harrison MD Work Phone: [facility] Comment on above: Abscess or celluliti s of toe, left (Primary Dx); Wound infection Start: 06-11-2022 End: 06-11-2022 Patient encounter procedure Bill Ochoa [facility] Start: 06-06-2022 End: 06-06-2022 Patient encounter procedure Zenon Santiago [facility] Start: 05-23-2022 End: 05-23-2022 Patient encounter procedure Zenon Santiago [facility] Start: 05-02-2022 End: 05-02-2022 Patient encounter procedure Zenon Santiago [facility] Start: 04-30-2022 End: 04-30-2022 Patient encounter procedure Zenno Santiago [facility] Start: 04-16-2022 End: 04-18-2022 Subsequent hospital visit by physician [facility] Comment on above: Decreased pulse Start: 04-04-2022 End: 04-04-2022 Patient encounter procedure Zenon Santiago [facility] Start: 04-02-2022 End: 04-02-2022 Patient encounter procedure Zenon Santiago [facility] Start: 03-28-2022 End: 03-28-2022 Patient encounter procedure Zenon Santiago [facility] Start: 02-19-2022 End: 02-21-2022 Subsequent hospital visit by physician [facility] Comment on above: Full incontinence of feces; Chronic midline low back pain without sciatica Start: 12-04-2021 End: 12-04-2021 Emergency department patient visit [facility] Start: 11-29-2021 End: 11-29-2021 Patient encounter procedure Zenon [facility] Start: 11-17-2021 End: 11-17-2021 Subsequent hospital visit by physician Sara Lester DO Work Phone: [facility] Comment on above: Type 2 diabetes evonne itus with diabetic polyneuropathy, with long-term current use of insulin (HCC) Start: 11-01-2021 End: 11-01-2021 Patient encounter procedure [facility] Start: 10-18-2021 End: 10-18-2021 Patient encounter procedure [facility]on [facility] Start: 10-11-2021 End: 10-11-2021 [facility] Start: 10-04-2021 End: 10-04-2021 [facility] Start: 09-27-2021 End: 09-27-2021 Patient encounter procedure Zenon [facility] Start: 09-20-2021 End: 09-20-2021 Patient encounter procedure [facility]on [facility] Start: 09-18-2021 End: 09-18-2021 Patient encounter procedure [facility]on [facility] Start: 09-12-2021 End: 09-20-2021 Pre-admission assessment [facility] Start: 09-12-2021 End: 09-12-2021 Patient encounter procedure [facility] Start: 09-06-2021 End: 09-06-2021 Patient encounter procedure [facility]on [facility] Start: 08-30-2021 End: 08-30-2021 Patient encounter procedure Zenon [facility] Start: 08-14-2021 End: 08-14-2021 Patient encounter procedure Zenon [facility] Start: 07-31-2021 End: 07-31-2021 Patient encounter procedure [facility]on [facility] Start: 07-17-2021 End: 07-17-2021 Patient encounter procedure Zenon [facility] Start: 07-03-2021 End: 07-11-2021 Pre-admission assessment Zenon [facility] Start: 07-03-2021 End: 07-03-2021 Patient encounter procedure Zenon [facility] Start: 06-19-2021 End: 06-27-2021 Pre-admission assessment [facility]on [facility] Start: 06-19-2021 End: 06-19-2021 Patient encounter procedure Zenon [facility] Start: 06-12-2021 End: 09-10-2021 Recurring SARA LE[facility] Start: 06-12-2021 End: 09-10-2021 Special examination status SARA LESTER [facility] Start: 06-05-2021 End: 06-05-2021 Patient encounter procedure Zenon [facility] Start: 04-18-2021 End: 04-18-2021 Emergency department patient visit Festus Tolentino MD Work Phone: [facility] ED Comment on above: Subacute bronchitis (Primary Dx); Lab test negative for COVID-19 virus Start: 12-14-2020 End: 12-16-2020 Subsequent hospital visit by physician Leyda Mri [facility] MRI Comment on above: Charcot's joint of r ight foot; Cellulitis of right foot; Diabetic neuropathic arthropathy (HCC) Start: 11-30-2020 End: 11-30-2020 Emergency department patient visit Festus Tolentino MD Work Phone: [facility] ED Comment on above: Cellulitis of right foot (Primary Dx); Type 2 diabetes mellitus with hyperglycemia, with long-term current use of insulin (HCC) Start: 11-15-2020 End: 11-15-2020 Subsequent hospital visit by physician Sara Lester DO Work Phone: [facility] Comment on above: Paronychia of great toe of left foot; Diabetic polyneuropathy associated with type 2 diabetes mellitus (HCC) Start: 05-16-2020 End: 05-16-2020 Subsequent hospital visit by physician Festus Peace Work Phone: [facility] Start: 05-16-2020 End: 05-16-2020 Subsequent hospital visit by physician Bong Covid19 Pat Screening Schedule [facility] PRE ADMIT Comment on above: Arrived Start: 05-13-2020 End: 05-13-2020 Subsequent hospital visit by physician Sara Lester [facility] Comment on above: Diabetic polyneuropa thy associated with type 2 diabetes mellitus (HCC) Start: 03-19-2020 End: 03-26-2020 Evaluation and management of inpatient Hugo Butler Work Phone: [facility] Comment on above: Osteomyelitis of rig ht foot, unspecified type (HCC) (Primary Dx); Cellulitis of right foot Start: 03-12-2019 End: 03-12-2019 Subsequent hospital visit by physician Sara Lester DO Work Phone: [facility] Comment on above: Type 2 diabetes evonne itus with diabetic polyneuropathy, with long-term current use of insulin (HCC) Start: 10-20-2018 End: 10-20-2018 Subsequent hospital visit by physician Sara Lester [facility] Comment on above: Diabetic polyneuropa thy associated with type 2 diabetes mellitus (HCC) Procedures Date Procedure Procedure Detail Performing Clinician Start: 07-05-2023 Gluc bld gluc mntr d ev cleared fda spec home use Omid Carias MD Work Phone: Start: 07-05-2023 Gluc bld gluc mntr d ev cleared fda spec home use Omid Carias MD Work Phone: Start: 07-04-2023 Gluc bld gluc mntr d ev cleared fda spec home use Omid Carias MD Work Phone: Start: 07-04-2023 Gluc bld gluc mntr d ev cleared fda spec home use Omid Carias MD Work Phone: Start: 07-04-2023 Gluc bld gluc mntr d ev cleared fda spec home use Omid Carias MD Work Phone: Start: 07-04-2023 Cul bact xcpt urine blood/stool aerobic isol Festus Peace DPM Work Phone: Start: 07-04-2023 Gluc bld gluc mntr d ev cleared fda spec home use Omid Carias MD Work Phone: Start: 07-04-2023 BASIC METABOLIC PANE L W/ REFLEX TO MG FOR LOW K Omid Carias MD Work Phone: Start: 07-04-2023 Blood count complete auto&auto difrntl wbc Omid Carias MD Work Phone: Start: 07-03-2023 Gluc bld gluc mntr d ev cleared fda spec home use Omid Carias MD Work Phone: Start: 07-03-2023 Assay of lactate Dinh Tolentino MD Work Phone: Start: 07-03-2023 CULTURE, BLOOD 1 Dinh Tolentino MD Work Phone: Start: 07-03-2023 End: 07-03-2023 Cul bact xcpt urine blood/stool aerobic isol Festus Tolentino MD Work Phone: Start: 07-03-2023 Comprehensive metabo lic panel Festus Tolentino MD Work Phone: Start: 07-03-2023 Radex foot complete minimum 3 views Festus Tolentino MD Work Phone: Start: 06-06-2023 Us retroperitoneal r eal time w/image complete Sara Lester DO Work Phone: Start: 06-30-2022 Ecg routine ecg w/le ast 12 lds w/i&r Zenon R Dolce DPM Work Phone: Start: 06-30-2022 Gluc bld gluc mntr d ev cleared fda spec home use Kiet Farah MD Work Phone: Start: 06-30-2022 BASIC METABOLIC PANE L W/ REFLEX TO MG FOR LOW K Kiet Farah MD Work Phone: Start: 06-29-2022 Gluc bld gluc mntr d ev cleared fda spec home use Kiet Farah MD Work Phone: Start: 06-29-2022 Gluc bld gluc mntr d ev cleared fda spec home use Kiet Farah MD Work Phone: Start: 06-29-2022 Gluc bld gluc mntr d ev cleared fda spec home use Kiet Farah MD Work Phone: Start: 06-29-2022 Gluc bld gluc mntr d ev cleared fda spec home use Kiet Farah MD Work Phone: Start: 06-29-2022 BASIC METABOLIC PANE L W/ REFLEX TO MG FOR LOW K Kiet Farah MD Work Phone: Start: 06-29-2022 Drug screen quantita tive vancomycin Kiet Farah MD Work Phone: Start: 06-28-2022 Gluc bld gluc mntr d ev cleared fda spec home use Kiet Farah MD Work Phone: Start: 06-28-2022 Gluc bld gluc mntr d ev cleared fda spec home use Kiet Farah MD Work Phone: Start: 06-28-2022 Gluc bld gluc mntr d ev cleared fda spec home use Kiet Farah MD Work Phone: Start: 06-28-2022 Gluc bld gluc mntr d ev cleared fda spec home use Kiet Farah MD Work Phone: Start: 06-28-2022 BASIC METABOLIC PANE L W/ REFLEX TO MG FOR LOW K Kiet Farah MD Work Phone: Start: 06-28-2022 Drug screen quantita tive vancomycin Kiet Farah MD Work Phone: Start: 06-27-2022 Gluc bld gluc mntr d ev cleared fda spec home use Kiet Farah MD Work Phone: Start: 06-27-2022 Gluc bld gluc mntr d ev cleared fda spec home use Kiet Farah MD Work Phone: Start: 06-27-2022 Gluc bld gluc mntr d ev cleared fda spec home use Cass Harrison MD Work Phone: Start: 06-27-2022 Cul bact xcpt urine blood/stool aerobic isol Festus Peace DPM Work Phone: Start: 06-27-2022 Gluc bld gluc mntr d ev cleared fda spec home use Kiet Farah MD Work Phone: Start: 06-27-2022 BASIC METABOLIC PANE L W/ REFLEX TO MG FOR LOW K Kiet Farah MD Work Phone: Start: 06-27-2022 Blood count complete auto&auto difrntl wbc Kiet Farah MD Work Phone: Start: 06-26-2022 Gluc bld gluc mntr d ev cleared fda spec home use Kiet Farah MD Work Phone: Start: 06-26-2022 Gluc bld gluc mntr d ev cleared fda spec home use Cass Harrison MD Work Phone: Start: 06-26-2022 Radex foot complete minimum 3 views Cass Harrison MD Work Phone: Start: 06-26-2022 CULTURE, BLOOD 1 Cass Harrison MD Work Phone: Start: 06-26-2022 C-reactive protein Rebekah Harrison MD Work Phone: Start: 06-26-2022 Comprehensive metabo lic panel Cass Harrison MD Work Phone: Start: 06-26-2022 COVID-19, RAPID Cass Harrison MD Work Phone: Start: 06-26-2022 Culture bacterial bl ood aerobic w/id isolates Cass Harrison MD Work Phone: Start: 06-21-2022 C-reactive protein Rebekah Harrison MD Work Phone: Start: 06-21-2022 End: 06-21-2022 Comprehensive metabolic panel Cass Harrison MD Work Phone: Start: 06-21-2022 Radex foot complete minimum 3 views Cass Harrison MD Work Phone: Start: 04-16-2022 Non-invasive physiol ogic study extremity 3 levls Sara Lester DO Work Phone: Start: 02-19-2022 Mri spinal canal lum bar w/o & w/contr matrl Sara Lester DO Work Phone: Start: 11-17-2021 Comprehensive metabo lic panel Sara Schaefer Yonley DO Work Phone: Start: 11-17-2021 Lipid panel Sara Lester DO Work Phone: Start: 11-17-2021 PATIENT FASTING? Mae Lester DO Work Phone: Start: 04-18-2021 COVID-19, RAPID Khari Tolentino MD Work Phone: Start: 04-18-2021 Iaadiadoo streptococ cus group a Festus Tolentino MD Work Phone: Start: 12-14-2020 Mri lower extrem oth /thn jt w/o & w/contr matr Sara Lester DO Work Phone: Start: 11-30-2020 Radex foot complete minimum 3 views Festus Tolentino MD Work Phone: Start: 11-30-2020 BASIC METABOLIC PANE L W/ REFLEX TO MG FOR LOW K Festus Tolentino MD Work Phone: Start: 11-30-2020 Blood count complete auto&auto difrntl wbc Festus Tolentino MD Work Phone: Start: 11-15-2020 Comprehensive metabo lic panel Sara Lester DO Work Phone: Start: 05-16-2020 Gluc bld gluc mntr d ev cleared fda spec home use Festus Peace Work Phone: Start: 05-16-2020 COVID-19, RAPID Fernando Dimas Work Phone: Start: 05-13-2020 Ecg routine ecg w/le ast 12 lds w/i&r Festus Peace Work Phone: Start: 05-13-2020 Basic metabolic pane l calcium total Festus Peace Work Phone: Start: 05-13-2020 Blood count complete automated Festus Peace Work Phone: Start: 05-13-2020 Comprehensive metabo lic panel Sara Lester Work Phone: Start: 05-13-2020 Hemoglobin glycosylated a1c Sara Lester Work Phone: Start: 05-13-2020 Lipid panel Sara Lester Work Phone: Start: 05-13-2020 Urine albumin quantitative Sara Lester Work Phone: Start: 03-26-2020 Gluc bld gluc mntr d ev cleared fda spec home use [employer] Work Phone: Start: 03-26-2020 Gluc bld gluc mntr d ev cleared fda spec home use [employer] Work Phone: Start: 03-25-2020 Gluc bld gluc mntr d ev cleared fda spec home use [employer] Work Phone: Start: 03-25-2020 Gluc bld gluc mntr d ev cleared fda spec home use [employer] Work Phone: Start: 03-25-2020 Gluc bld gluc mntr d ev cleared fda spec home use [place] [employer] Work Phone: Start: 03-25-2020 Gluc bld gluc mntr d ev cleared fda spec home use [employer] Work Phone: Start: 03-24-2020 Gluc bld gluc mntr d ev cleared fda spec home use [employer] Work Phone: Start: 03-24-2020 Gluc bld gluc mntr d ev cleared fda spec home use [place] [employer] Work Phone: Start: 03-24-2020 Gluc bld gluc mntr d ev cleared fda spec home use [employer] Work Phone: Start: 03-24-2020 Gluc bld gluc mntr d ev cleared fda spec home use [place] [employer] Work Phone: Start: 03-24-2020 Basic metabolic pane l calcium total Festus Peace Work Phone: Start: 03-23-2020 Gluc bld gluc mntr d ev cleared fda spec home use [employer] Work Phone: Start: 03-23-2020 Level iv surg pathol ogy gross&microscopic exam Festus Peace Work Phone: Start: 03-23-2020 Drug screen quantita tive vancomycin Festus Castellanos [employer] Work Phone: Start: 03-23-2020 Gluc bld gluc mntr d ev cleared fda spec home use [employer] Work Phone: Start: 03-23-2020 Cul prsmptv pthgnc o rganism scrn w/col[place] estimj Dinhzenon Castellanos [employer] Work Phone: Start: 03-23-2020 End: 03-23-2020 Amputation of toe Festus Castellanos [employer] Work Phone: Start: 03-23-2020 End: 03-23-2020 Gluc bld gluc mntr dev cleared fda spec home use [employer] Work Phone: Start: 03-23-2020 Basic metabolic pane l calcium total [employer] Work Phone: Start: 03-22-2020 Gluc bld gluc mntr d ev cleared fda spec home use [employer] Work Phone: Start: 03-22-2020 Gluc bld gluc mntr d ev cleared fda spec home use [employer] Work Phone: Start: 03-22-2020 Gluc bld gluc mntr d ev cleared fda spec home use [employer] Work Phone: Start: 03-22-2020 Gluc bld gluc mntr d ev cleared fda spec home use [employer] Work Phone: Start: 03-22-2020 Basic metabolic pane l calcium total [employer] Work Phone: Start: 03-22-2020 Blood count complete auto&auto difrntl wbc [employer] Work Phone: Start: 03-21-2020 Drug screen quantita tive vancomycin [employer] Work Phone: Start: 03-21-2020 Gluc bld gluc mntr d ev cleared fda spec home use [employer] Work Phone: Start: 03-21-2020 Gluc bld gluc mntr d ev cleared fda spec home use [employer] Work Phone: Start: 03-21-2020 Mri lower extrem oth /thn jt w/o & w/contr matr Dinhzenon Emanuel Kobi Work Phone: Start: 03-21-2020 Cul bact xcpt urine blood/stool aerobic isol Dinhzenon Peace Work Phone: Start: 03-21-2020 End: 03-21-2020 Gluc bld gluc mntr dev cleared fda spec home use [employer] Work Phone: Start: 03-21-2020 Assay of magnesium Bill y Back Work Phone: Start: 03-21-2020 BASIC METABOLIC PANE L W/ REFLEX TO MG FOR LOW K Omid Back Work Phone: Start: 03-21-2020 Blood count complete auto&auto difrntl wbc Omid Back Work Phone: Start: 03-20-2020 Gluc bld gluc mntr d ev cleared fda spec home use Omid Back Work Phone: Start: 03-20-2020 Gluc bld gluc mntr d ev cleared fda spec home use Omid Back Work Phone: Start: 03-20-2020 Gluc bld gluc mntr d ev cleared fda spec home use Omid Back Work Phone: Start: 03-20-2020 End: 03-20-2020 Gluc bld gluc mntr dev cleared fda spec home use Omid Back Work Phone: Start: 03-20-2020 COVID-19 Hugo beckman Work Phone: Start: 03-20-2020 Radex foot complete minimum 3 views Hugo Butler Work Phone: Start: 03-20-2020 Blood count complete auto&auto difrntl wbc Hugo Butler Work Phone: Start: 03-20-2020 Comprehensive metabo lic panel Hugo Butler Work Phone: Start: 03-20-2020 Cul bact xcpt urine blood/stool aerobic isol Hugo Butler Work Phone: Start: 03-20-2020 CULTURE, BLOOD 1 Hugo Butler Work Phone: Start: 03-20-2020 Lactate [Moles/Vol] Marshall Butler Work Phone: Start: 03-20-2020 Hemoglobin glycosylated a1c Omid Back Work Phone: Start: 03-12-2019 Comprehensive metabo lic panel Sara Silvano Jose Rafaelveenademetrio DO Work Phone: Start: 03-12-2019 Lipid panel Sarajeff Lester DO Work Phone: Start: 03-12-2019 PATIENT FASTING? Mae Mantillaveenademetrio DO Work Phone: Start: 10-20-2018 Comprehensive metabo lic panel Sara Silvano Jose Rafaelveenademetrio Work Phone: Start: 10-20-2018 Hemoglobin glycosylated a1c Sara Silvano Jose Rafaelveenademetrio Work Phone: Start: 10-20-2018 Urine albumin quantitative Sara L Jose Rafaelveenademetrio Work Phone: hernia repair X 3 Zenon Dol ce Lasik left eye Zenon Dolce Plan of Treatment Date Care Activity Detail Author Start: 08-05-2028 DTaP/Tdap/Td vaccine (3 - Td or Tdap) DTaP/Tdap/Td vaccine (3 - Td or Tdap) [facility] Start: 08-05-2028 DTaP/Tdap/Td vaccine (3 - Td) DTaP/Tdap/Td vaccine (3 - Td) [facility] [place] Start: 2026 Pneumococcal 0-64 ye ars Vaccine (2 of 2 - PPSV23) Pneumococcal 0-64 years Vaccine (2 of 2 - PPSV23) [facility] Start: 2026 Pneumococcal 0-64 ye ars Vaccine (3 - PPSV23 if available, else PCV20) Pneumococcal 0-64 years Vaccine (3 - PPSV23 if available, else PCV20) [facility] Start: 2026 Pneumococcal 0-64 ye ars Vaccine (3 - PPSV23 or PCV20) Pneumococcal 0-64 years Vaccine (3 - PPSV23 or PCV20) [facility] Start: 2026 Pneumococcal 0-64 ye ars Vaccine (3 of 3 - PPSV23 or PCV20) Pneumococcal 0-64 years Vaccine (3 of 3 - PPSV23 or PCV20) [facility] Start: 07-03-2024 GFR test (Diabetes, CKD 3-4, OR last GFR 15-59) GFR test (Diabetes, CKD 3-4, OR last GFR 15-59) [facility] Start: 05-20-2024 Diabetic foot examination Diabetic f oot exam [facility] Start: 05-20-2024 GFR test (Diabetes, CKD 3-4, OR last GFR 15-59) GFR test (Diabetes, CKD 3-4, OR last GFR 15-59) [facility] Start: 05-20-2024 Urine screening for protein Diabetic Alb to Cr ratio (uACR) test [facility] Start: 03-19-2024 Depression Monitoring Depression Mon itoring [facility] Start: 02-14-2024 Lipid panel Lipids [facility] Start: 10-02-2023 Hemoglobin A1c measurement A1C test (Diabetic or Prediabetic) [facility] Start: 08-27-2023 End: 08-27-2023 Patient encounter procedure 08/27/2023 9:00 AM EDT Office Visit [facility] [address] [place] [address] Sara Lester DO [address] [place] [address] 3 mon check DM [facility] Comment on above: 3 mon check DM Start: 08-21-2023 Hemoglobin A1c measurement A1C test (Diabetic or Prediabetic) [facility] [email or web address] Start: 07-09-2023 End: 07-09-2023 Patient encounter procedure 07/09/2023 10:00 AM EDT Office Visit [facility] [address] [facility] [place] [phone] Sara Lester DO [address] [facility] [place] [address] discharged 07/06/23 [facility] Comment on above: discharged 07/06/23 Start: 07-01-2023 GFR test (Diabetes, CKD 3-4, OR last GFR 15-59) GFR test (Diabetes, CKD 3-4, OR last GFR 15-59) [facility] [email or web address] Start: 06-22-2023 GFR test (Diabetes, CKD 3-4, OR last GFR 15-59) GFR test (Diabetes, CKD 3-4, OR last GFR 15-59) [facility] [employer] Start: 04-10-2023 Depression Monitoring Depression Mon itoring [facility] [employer] Start: 04-10-2023 Diabetic foot examination Diabetic f oot exam [facility] [email or web address] Start: 02-09-2023 GFR test (Diabetes, CKD 3-4, OR last GFR 15-59) GFR test (Diabetes, CKD 3-4, OR last GFR 15-59) [facility] [email or web address] Start: 11-17-2022 Hemoglobin A1c measurement A1C test (Diabetic or Prediabetic) [facility] [email or web address] Start: 11-17-2022 Lipid panel [facility] Start: 07-04-2022 End: 07-04-2022 Patient encounter procedure 07/04/2022 Office Visit Family Medicine Sara Lester DO [address] [facility] [place] [phone] [facility] Start: 07-02-2022 End: 07-02-2022 Patient encounter procedure 07/02/2022 Office Visit Family Medicine Sara Lester DO [address] [place] [address] [facility] Start: 07-01-2022 Hemoglobin A1c measurement A1C test (Diabetic or Prediabetic) [facility] Start: 04-21-2022 Depression Monitoring Depression Mon itoring [facility] Start: 11-30-2021 Creatinine measurement Creatinine mo [facility] Start: 11-30-2021 Potassium monitoring Potassium monit [facility] Start: 11-15-2021 Creatinine measurement Creatinine mo [facility] Work Phone: Start: 11-15-2021 Potassium monitoring Potassium monit [facility] Work Phone: Start: 11-09-2021 Influenza vaccination Flu vaccine (# 1) [facility] Start: 07-19-2021 Hemoglobin A1c measurement A1C test (Diabetic or Prediabetic) [facility] Start: 07-01-2021 Diabetic foot examination Diabetic f oot exam [facility] Start: 05-13-2021 Creatinine measurement Creatinine mo [facility] Work Phone: Start: 05-13-2021 Diabetic microalbumi kristopher test Diabetic microalbuminuria test [facility] [employer] Phone: Start: 05-13-2021 Lipid panel [facility] Start: 05-13-2021 Potassium monitoring Potassium monit [facility] Work Phone: Start: 05-13-2021 Urine screening for protein [facility] Start: 05-05-2021 Screening for malign ant neoplasm of colon [facility] Start: 03-24-2021 Creatinine measurement Creatinine mo [facility] [place] Start: 03-24-2021 Potassium monitoring Potassium monit [facility] [place], [place] Start: 02-21-2021 End: 02-21-2021 Patient encounter procedure 02/21/2021 Office Visit Family Medicine Sara Lester, DO [address] [place] [address] [facility] Start: 02-14-2021 Hemoglobin A1c measurement A1C test (Diabetic or Prediabetic) [facility] Start: 2021 Respiratory Syncytia l Virus (RSV) or age 60 yrs+ (1 - 1-dose 60+ series) Respiratory Syncytial Virus (RSV) or age 60 yrs+ (1 - 1-dose 60+ series) [facility] TORRES [facility] Start: 12-13-2020 End: 12-13-2020 Patient encounter procedure 12/13/2020 Office Visit Family Medicine Sara Lester DO [address] [place] [address] [facility] Start: 11-09-2020 Influenza vaccination Flu vaccine (# 1) [facility] [employer] Phone: Start: 08-13-2020 HbA1c (Bld) [Mass fraction] A1C test (Diabetic or Prediabetic) [facility]: Start: 08-13-2020 Hemoglobin A1c measurement A1C test (Diabetic or Prediabetic) [facility] Phone: Start: 07-11-2020 End: 07-11-2020 Office Visit 07/11/2020 Office Visit Family Medicine Sara Lester DO [address] [place] [address] [facility] Start: 06-18-2020 HbA1c (Bld) [Mass fraction] A1C test (Diabetic or Prediabetic) [facility] [place], [place] Start: 05-24-2020 End: 05-24-2020 Office Visit 05/24/2020 Office Visit Family Sara Estes DO [address] [place] [phone] [facility] Start: 05-16-2020 End: 05-16-2020 Hospital Encounter [facility] Comment on above: I AND D OF RIGHT FIF TH METATARSAL AND EXCESION OF BONE RIGHT FIFTH METATARSAL Start: 05-16-2020 End: 05-16-2020 Appointment 05/16/2020 Appointment Pre-Admission Testing [facility] PRE ADMIT Start: 03-12-2020 A1C test (Diabetic o r Prediabetic) A1C test (Diabetic or Prediabetic) [employer] Phone: Start: 03-12-2020 Creatinine monitoring Creatinine mon itoring [employer] Phone: Start: 03-12-2020 Lipid panel Lipid screen [facility] [place] [place] Start: 03-12-2020 Lipid screen Lipid screen [employer] Phone: Start: 03-12-2020 Potassium monitoring Potassium monit oring [employer] Phone: Start: 02-22-2020 Shingles Vaccine (2 of 2) Shingles V accine (2 of 2) [facility] [employer] Start: 01-21-2020 3 comp foot exam completed Diabetic foot exam [employer] Phone: Start: 01-21-2020 Diabetic foot examination Diabetic f oot exam [place], [place] Start: 10-22-2019 Colon Cancer Screen FIT/FOBT Colon Cancer Screen FIT/FOBT [facility] Phone: Start: 10-22-2019 Screening for malign ant neoplasm of colon Colon Cancer Screen FIT/FOBT [place], [place] Start: 10-21-2019 Diabetic microalbumi kristopher test Diabetic microalbuminuria test [facility] Phone: Start: 09-06-2019 Diabetic retinal exam Diabetic retin al exam [facility] [employer] Start: 09-06-2019 Glaucoma screening Diabetic retinal exam [facility] TORRES [facility] [email or web address] Start: 04-22-2019 End: 04-22-2019 Patient encounter procedure 04/22/2019 Office Visit Family Medicine Sara Lester DO [address] [place] [address] [facility] Start: 12-03-2018 Creatinine monitoring Creatinine mon [place], [place] Start: 12-03-2018 Lipid screen Lipid screen [place], [place] Start: 12-03-2018 Potassium monitoring Potassium monit oring [place], [place] Start: 11-09-2018 Influenza vaccination Flu vaccine (# 1) [place] Start: 10-21-2018 End: 10-21-2018 Office Visit 10/21/2018 Office Visit Family Medicine Sara Lester DO [address] [place] [address] [facility] Start: 06-21-2018 [object Object] Diabetic foot exam M [place] Start: 06-21-2018 Diabetic microalbumi kristopher test Diabetic microalbuminuria test [place] Start: 03-04-2018 A1C test (Diabetic o r Prediabetic) A1C test (Diabetic or Prediabetic) [place] Start: 10-16-2017 Colon Cancer Screen FIT/FOBT Colon Cancer Screen FIT/FOBT [place], [place] Start: 09-25-[address] lung screening Low dose CT lung screening [place] Start: 09-25-2017 Screening for malign ant neoplasm of lung Low dose CT lung screening [facility] Start: 2011 Shingles Vaccine (1 of 2) Shingles V accine (1 of 2) [place] Start: 2006 Screening for malign ant neoplasm of colon [facility] Start: 01-09-1980 Hepatitis B Vaccine (1 of 3 - Risk 3-dose series) Hepatitis B Vaccine (1 of 3 - Risk 3-dose series) [place] Start: 1973 COVID-19 Vaccine (1) COVID-19 Vaccin e (1) [facility] Work Phone: Start: 1973 Depression Monitoring Depression Mon [facility] Start: 1967 Pneumococcal 0-64 ye ars Vaccine (1 of 1 - PPSV23) Pneumococcal 0-64 years Vaccine (1 of 1 - PPSV23) [place] Start: 1966 COVID-19 Vaccine (1) COVID-19 Vaccin e (1) [employer] Start: 1961 COVID-19 Vaccine (#1) COVID-19 Vacci ne (#1) [facility] End: 07-02-2022 Basic Metabolic Panel w/ Reflex to MG Basic Metabolic Panel w/ Reflex to MG Lab Routine Daily for 5 Days starting 06/28/2022 until 07/02/2022, 3 completed [facility] [employer] Work Phone: Comment on above: Daily for 5 Days sta rting 06/28/2022 until 07/02/2022, 3 completed Blood Culture 1 Blood Culture 1 Microbiology STAT 07/03/2023 4:55 PM EDT [facility] Culture, Anaerobic a nd Aerobic [place] Comment on above: Release Upon Orderin g for 1 Occurrences starting 05/16/2020 Culture, Blood 1 Culture, Blood 1 Microbiology Routine 06/26/2022 2:26 PM EDT [facility] [employer] Work Phone: Culture, Blood 2 Culture, Blood 2 Microbiology Stat [employer] Label print 06/26/2022 2:15 PM EDT [facility] [employer] Phone: Culture, Blood 2 Culture, Blood 2 Microbiology Stat [employer] Label print 07/03/2023 5:00 PM EDT [facility] [employer] Culture, Wound Culture, Wound Microbiology [employer] Label Print 07/04/2023 9:18 AM EDT [facility] EKG 12 lead EKG 12 lead ECG Routine 05/13/2020 8:51 AM EST [employer] Work Phone: EKG 12 Lead EKG 12 Lead ECG Routine 06/30/2022 10:05 AM EDT [facility] Work Phone: Glucose [Mass/volume ] in Serum or Plasma [facility] Phone: Comment on above: 4X Daily (AC & HS) u ntil discontinued starting 06/26/2022 As Needed until disc ontinued starting 06/26/2022 Glucose [Mass/volume ] in Serum or Plasma [facility] [employer] Comment on above: 4X Daily (AC & HS) u ntil discontinued starting 07/03/2023 As Needed until disc ontinued starting 07/03/2023 End: 11-15-2020 Hemoglobin A1c/Hemoglobin.total in Blood Hemoglobin A1C Lab Routine Diabetic polyneuropathy associated with type 2 diabetes mellitus (HCC) 1 Occurrences starting 11/15/2020 until 11/15/2020 [employer] Phone: Comment on above: 1 Occurrences starti ng 11/15/2020 until 11/15/2020 Hemoglobin A1c/Hemoglobin.total in Blood Hemoglobin A1C Lab Routine Diabetic polyneuropathy associated with type 2 diabetes mellitus (HCC) 11/15/2020 2:01 PM EDT [employer] Phone: Oxygen therapy [Mini mum Data Set] Initiate Oxygen Therapy Protocol Respiratory Care Routine Daily until discontinued starting 03/20/2020 [facility] Comment on above: Daily until disconti nued starting 03/20/2020 Oxygen therapy [Mini mum Data Set] Initiate Oxygen Therapy Protocol Respiratory Care Routine As Needed until discontinued starting 06/26/2022 [facility] [employer] Phone: Comment on above: As Needed until disc ontinued starting 06/26/2022 Oxygen therapy [Mini mum Data Set] Initiate Oxygen Therapy Protocol Respiratory Care Routine As Needed until discontinued starting 07/03/2023 [facility] [employer] Comment on above: As Needed until disc ontinued starting 07/03/2023 POCT glucose [facility] Comment on above: 4X Daily (AC & HS) u ntil discontinued starting 03/20/2020 As Needed until disc ontinued starting 03/20/2020 [facility] Comment on above: Release Upon Orderin g for 1 Occurrences starting 05/16/2020 Release Upon Orderin g for 1 Occurrences starting 03/23/2020 End: 04-18-2021 XR CHEST PORTABLE [employer] Phone: Comment on above: Once for 1 Occurrenc es starting 04/18/2021 until 04/18/2021 Immunizations Immunization Date Immunization Notes Care Provider Andrew rosaanabel 01-03-2023 Influenza, injectabl e, Madin Teresa Canine Kidney, preservative free, quadrivalent Sara Yonley DO Work Phone: [facility] [employer] 01-15-2022 influenza, injectabl e, quadrivalent, preservative free [facility] [employer] Work Phone: 12-15-2020 influenza, injectabl e, quadrivalent, preservative free Sara Yonley DO Work Phone: [facility] [employer] Work Phone: 12-15-2020 pneumococcal conjuga te vaccine, 13 valent Sara Yonley DO Work Phone: [facility] [employer] Work Phone: 05-25-2020 zoster vaccine recombinant [facility] [employer] Work Phone: 12-28-2019 influenza virus vacc ine, unspecified formulation Sara Yonley DO Work Phone: [facility] [employer] Work Phone: 12-28-2019 influenza, injectabl e, quadrivalent, contains preservative [facility] 12-28-2019 zoster vaccine recombinant [place] 01-20-2019 influenza, injectabl e, quadrivalent, preservative free Sara Yonley DO Work Phone: [facility] [employer] Work Phone: 01-20-2019 pneumococcal polysaccharide vaccine, 23 valent Sara Yonley DO Work Phone: [facility] Phone: 08-05-2018 tetanus toxoid, redu kavon diphtheria toxoid, and acellular pertussis vaccine, adsorbed Sara [facility] 12-06-2016 tetanus toxoid, redu kavon diphtheria toxoid, and acellular pertussis vaccine, adsorbed [employer] [employer] 11-19-2016 influenza, injectabl e, quadrivalent, contains preservative [facility] P[facility] Date Payer Category Payer Medicare [id number] 2022 Medicare [id number] 2022 Private Health Insurance [id number] 2022 Private Health Insurance [id number] 2022 Medicare [id number] 2018 Unknown [facility] xxxxxxxxxxxx 2018-Present [phone] [address] [place] [address] xxxxxxxxxxxx [id number] .[id number] 2016 Unknown [id number] 1.2.840.157265.1.13.239.2 .7.3.883977.315 1961 Unknown [id number] 2.16.840.1.412252.3.579.2 .983 1961 Unknown [id number] 2.16.840.1.514993.3.579.2 .174 1961 Unknown [id number] 2.16.840.1.796861.3.579.2 .174 1961 Unknown [id number] 2.16.840.1.894592.3.579.2 .174 1961 Unknown [id number] 2.16.840.1.301319.3.579.2 .174 1961 Unknown [id number] 2.16.840.1.875402.3.579.2 .174 1961 Unknown [id number] 2.16.840.1.616761.3.579.2 .174 1961 Unknown [id number] 2.16.840.1.468346.3.579.2 .174 1961 Unknown [id number] 2.16.840.1.531609.3.579.2 .174 1961 Unknown [id number] 2.16.840.1.378459.3.579.2 .174 1961 Unknown [id number] 2.16.840.1.742854.3.579.2 .174 1961 Unknown [id number] 2.16.840.1.094109.3.579.2 .1259 1961 Unknown [id number] 2.16.840.1.738583.3.579.2 .1259 1961 Unknown [id number] 2.16.840.1.941930.3.579.2 .727 1961 Unknown [id number] 2.16.840.1.664207.3.579.2 .727 1961 Unknown [id number] 2.16.840.1.844990.3.579.2 .727 1961 Unknown [id number] 2.16.840.1.820552.3.579.2 .727 1961 Unknown [id number] 2.16.840.1.715298.3.579.2 .727 1961 Unknown [id number] 2.16.840.1.612509.3.579.2 .727 1961 Unknown [id number] 2.16.840.1.434574.3.579.2 .727 1961 Unknown [id number] 2.16.840.1.166029.3.579.2 .727 1961 Unknown [id number] 2.16.840.1.993571.3.579.2 .727 1961 Unknown [id number] 2.16.840.1.659548.3.579.2 .727 1961 Unknown [id number] 2.16.840.1.804961.3.579.2 .727 1961 Unknown [id number] 2.16.840.1.788540.3.579.2 .727 1961 Unknown [id number] 2.16.840.1.339890.3.579.2 .727 1961 Unknown [id number] 2.16.840.1.325283.3.579.2 .72 1961 Unknown [id number] 2.16.840.1.010733.3.579.2 .72 1961 Unknown [id number] 2.16.840.1.482328.3.579.2 .72 1961 Unknown [id number] 2.16.840.1.747069.3.579.2 .72 1961 Unknown [id number] 2.16.840.1.720051.3.579.2 .72 1961 Unknown [id number] 2.16.840.1.939432.3.579.2 .727 1961 Unknown [id number] 2.16.840.1.471383.3.579.2 .727 1961 Unknown [id number] 2.16.840.1.732151.3.579.2 .72 1961 Unknown [id number] 2.16.840.1.030732.3.579.2 .72 1961 Unknown [id number] 2.16.840.1.717750.3.579.2 .727 1961 Unknown [id number] 2.16.840.1.622984.3.579.2 .72 1961 Unknown [id number] 2.16.840.1.028380.3.579.2 .727 1961 Unknown [id number] 2.16.840.1.982055.3.579.2 .727 1961 Unknown [id number] 2.16.840.1.844291.3.579.2 .727 1961 Unknown [id number] 2.16.840.1.182580.3.579.2 .727 1961 Unknown [id number] 2.16.840.1.115352.3.579.2 .727 1961 Unknown [id number] 2.16.840.1.205580.3.579.2 .727 1961 Unknown [id number] 2.16.840.1.054577.3.579.2 .727 1961 Unknown [id number] 2.16.840.1.566501.3.579.2 .727 1961 Unknown [id number] 2.16.840.1.546090.3.579.2 .727 Social History Date Type Detail Facility Start: 08-05-2018 End: 11-24-2019 Tobacco smoking status NHIS Former sm[place] Comment on above: pt states he quit in 2007 Start: 10-11-1967 End: 10-11-2007 History of tobacco use Current smoker [place] Start: 10-11-1967 End: 10-11-2007 History of tobacco use Cigarette Smoker [place] Start: 08-05-2018 End: 07-03-2023 Cigarettes smoked current (pack per day) - Reported [facility]ACH TORRES [facility] Start: 08-05-2018 End: 07-03-2023 Alcohol intake No [place], [place] Start: 1960 Sex Assigned At Not on file [place] Start: 04-12-2020 End: 03-19-2023 Tobacco use and exposure Never used [facility] Start: 04-12-2020 End: 07-03-2023 Alcohol intake Current non-drinker of alcohol (finding) [facility] [employer] Work Phone: Start: 04-12-2020 End: 04-21-2021 History SDOH Financial 5 [employer] Phone: Start: 04-12-2020 End: 04-21-2021 History SDOH Food Worry 1 [employer] Phone: Start: 06-11-2022 End: 06-26-2022 Exposure to SARS-CoV-2 (event) Not sure [employer]- [place], [place] Start: 06-21-2022 End: 06-26-2022 History SDOH Alcohol Std Drinks 0 [employer] Work Phone: How often to you hav e a drink containing alcohol? Never [employer] How many standard dr inks containing alcohol do you have on a typical day? Patient does not drink [employer] (I/We) worried wheth er (my/our) food would run out before (I/we) got money to buy more. Never true [employer] At any time in the p ast 12 months, were you homeless or living in alf [including now]? No [employer] Medical Equipment Procedure Code Equipment Code Equipment Origin al Text Equipment Identifier Dates Use to test suga r TID and as needed. [id number] Start: 12-03-2017 use to inject la ntus and victoza daily [id number] Start: 06-17-2017 Dispense to matc h true metrix [id number] Start: 06-18-2016 Use to test suga r BID [id number] Start: 04-13-2020 Use to inject tw ice daily [id number] Start: 04-13-2020 1 each by Does n ot apply route 3 times daily [id number] Start: 01-20-2019 use to inject la ntus and victoza daily [id number] Start: 01-27-2019 Use to test suga r BID [id number] Start: 11-15-2020 use to inject TW ICE DAILY [id number] Start: 07-14-2020 glucometer, matc kaitlin strips and lancets, insulin pen and needles, alcohol swabs, 30 day supply, Print Requisition, Supply Start: 08-11-2022 glucometer, matc kaitlin strips and lancets, insulin pen and needles, alcohol swabs, 30 day supply, Print Requisition, Supply Start: 08-11-2022 glucometer, matc kaitlin strips and lancets, insulin pen and needles, alcohol swabs, 30 day supply, Print Requisition, Supply Start: 08-11-2022 glucometer, matc kaitlin strips and lancets, insulin pen and needles, alcohol swabs, 30 day supply, Print Requisition, Supply Start: 08-11-2022 glucometer, matc kaitlin strips and lancets, insulin pen and needles, alcohol swabs, 30 day supply, Print Requisition, Supply Start: 08-11-2022 glucometer, matc kaitlin strips and lancets, insulin pen and needles, alcohol swabs, 30 day supply, Print Requisition, Supply Start: 08-11-2022 glucometer, matc kaitlin strips and lancets, insulin pen and needles, alcohol swabs, 30 day supply, Print Requisition, Supply Start: 08-11-2022 glucometer, matc kaitlin strips and lancets, insulin pen and needles, alcohol swabs, 30 day supply, Print Requisition, Supply Start: 08-11-2022 glucometer, matc kaitlin strips and lancets, insulin pen and needles, alcohol swabs, 30 day supply, Print Requisition, Supply Start: 08-11-2022 glucometer, matc kaitlin strips and lancets, insulin pen and needles, alcohol swabs, 30 day supply, Print Requisition, Supply Start: 08-11-2022 glucometer, matc kaitlin strips and lancets, insulin pen and needles, alcohol swabs, 30 day supply, Print Requisition, Supply Start: 08-11-2022 glucometer, matc kaitlin strips and lancets, insulin pen and needles, alcohol swabs, 30 day supply, Print Requisition, Supply Start: 08-11-2022 glucometer, matc kaitlin strips and lancets, insulin pen and needles, alcohol swabs, 30 day supply, Print Requisition, Supply Start: 08-11-2022 glucometer, matc kaitlin strips and lancets, insulin pen and needles, alcohol swabs, 30 day supply, Print Requisition, Supply Start: 08-11-2022 glucometer, matc kaitlin strips and lancets, insulin pen and needles, alcohol swabs, 30 day supply, Print Requisition, Supply Start: 08-11-2022 glucometer, matc kaitlin strips and lancets, insulin pen and needles, alcohol swabs, 30 day supply, Print Requisition, Supply Start: 08-11-2022 glucometer, matc kaitlin strips and lancets, insulin pen and needles, alcohol swabs, 30 day supply, Print Requisition, Supply Start: 08-11-2022 glucometer, matc kaitlin strips and lancets, insulin pen and needles, alcohol swabs, 30 day supply, Print Requisition, Supply Start: 08-11-2022 glucometer, matc kaitlin strips and lancets, insulin pen and needles, alcohol swabs, 30 day supply, Print Requisition, Supply Start: 08-11-2022 glucometer, matc kaitlin strips and lancets, insulin pen and needles, alcohol swabs, 30 day supply, Print Requisition, Supply Start: 08-11-2022 glucometer, matc kaitlin strips and lancets, insulin pen and needles, alcohol swabs, 30 day supply, Print Requisition, Supply Start: 08-11-2022 glucometer, matc kaitlin strips and lancets, insulin pen and needles, alcohol swabs, 30 day supply, Print Requisition, Supply Start: 08-11-2022 glucometer, matc kaitlin strips and lancets, insulin pen and needles, alcohol swabs, 30 day supply, Print Requisition, Supply Start: 08-11-2022 glucometer, matc kaitlin strips and lancets, insulin pen and needles, alcohol swabs, 30 day supply, Print Requisition, Supply Start: 08-11-2022 glucometer, matc kaitlin strips and lancets, insulin pen and needles, alcohol swabs, 30 day supply, Print Requisition, Supply Start: 08-11-2022 glucometer, matc kaitlin strips and lancets, insulin pen and needles, alcohol swabs, 30 day supply, Print Requisition, Supply Start: 08-11-2022 glucometer, matc kaitlin strips and lancets, insulin pen and needles, alcohol swabs, 30 day supply, Print Requisition, Supply Start: 08-11-2022 glucometer, matc kaitlin strips and lancets, insulin pen and needles, alcohol swabs, 30 day supply, Print Requisition, Supply Start: 08-11-2022 glucometer, matc kaitlin strips and lancets, insulin pen and needles, alcohol swabs, 30 day supply, Print Requisition, Supply Start: 08-11-2022 Use to test mandi MCCLELLAN [id number] Start: 02-13-2023 glucometer, matc kaitlin strips and lancets, insulin pen and needles, alcohol swabs, 30 day supply, Print Requisition, Supply Start: 08-11-2022 Functional Status Date Assessment Result Facility 10-02-2022 Functional Status No [facility] 10-02-2022 Functional Status [facility] 08-09-2022 Functional Status No [facility] Clinical Notes 04-16-2022 to 07-05-2023 Janice Matias RN - 07/05/2023 12:[address], LD - 07/05/2023 11:15 AM Rhea Aguirre LSW - 07/05/2023 11:06 AM FADITMatt Maddox RN - 07/05/2023 8:45 AM EDT Note Date & Type Note Facility 07-05-2023 History of Present illness Narrative IV removed without incident, diffuse pink area above IV site. Instructed patient to monitor area for s/s of infection, and to call if s/s appear. Discharge instructions reviewed with and provided to patient at bedside. 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 LLE foot new dressing applied and earl wrap applied. Dressing supplies sent with patient. Advised to call back directly if there are further questions, or if these symptoms fail to improve as anticipated or worsen. All questions answered. Personal belongings sent with patient. Assisted to wheelchair and taken to personal car. Denies further needs. Comprehensive Nutrition Assessment Type and Reason for Visit: Initial, Wound Nutrition Recommendations/Plan: Continue current diet. Continue daily MVI. Recommend 500 mg vitamin C and 220 mg zinc sulfate to aid healing needs. Encouraged 3 meals per day with consistent carbs. Encouraged protein foods for healing needs with meals and snacks. 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 Altered nutrition related labs r/t endocrine dysfunction aeb A1c 10.6/EAG 258. Pt encouraged to eat protein foods, drink water, take daily MVI for wound healing needs. Recommended vitamin C and zinc to aid wound healing. Pt expected to d/c today. Pt states he was not eating the right things at home. Discussed with Pt that improving glycemic control can aid healing, states I know. States he is going to start making changes. Recommended comprehensive diabetes outpatient education. Pt states he had education years ago. Glucose 236, glucose range 73-241. Pt is on a daily vitamin and probiotic. 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 Weight Source: Bed Scale Current BMI (kg/m2): 28.2 Usual Body Weight: 90.7 kg (200 lb) % Weight Change (Calculated): -4.3 Weight Adjustment For: No Adjustment BMI Categories: Normal Weight (BMI 22.0 to 24.9) age over 65 Estimated Daily Nutrient Needs: Energy Requirements Based On: Kcal/kg Weight Used for Energy Requirements: Current Energy (kcal/day): [phone] (25-28/kg) Weight Used for Protein Requirements: Redford Protein (g/day): 102-117g (1.4-1.6g/kg) Method Used for Fluid Requirements: 1 ml/kcal Fluid (ml/day): 2,400 ml Lab Results Component Value Date/Time LABA1C 10.6 07/03/2023 03:23 PM Recent Labs 07/03/23202307/04/23 0734 07/04/23 1131 07/04/23 1628 07/04/23202007/05/23 0746 POCGLU 157* 171* 73 241* 241* 209* Lab Results Component Value Date/Time TRIG 245 02/13/2023 07:00 AM HDL 36 02/13/2023 07:00 AM LDLDIRECT 89 12/03/2017 09:17 AM Hematology: Recent Labs 07/03/23 1523 07/04/23 0411 WBC 6.0 5.8 HGB 10.8* 10.3* HCT 32.2* 30.2* Chemistry: Recent Labs 07/03/23 1523 07/04/23 0411 NA 138 137 K 4.8 4.4 CL 100 103 CO2 25 22 GLUCOSE 459* 236* BUN 11 11 CREATININE 1.2 1.2 CALCIUM 9.3 8.9 Recent Labs 07/03/23 1523 PROT 7.3 LABA1C 10.6* AST 16 ALT 15 ALKPHOS 138* BILITOT 0.8 Nutrition Diagnosis: Increased nutrient needs related to acute injury/trauma as evidenced by wounds Altered nutrition-related lab values related to endocrine dysfuntion as evidenced by lab values Nutrition Interventions: Food and/or Nutrient Delivery: Continue Current Diet, Mineral Supplement, Vitamin Supplement Nutrition Education/Counseling: Education initiated Coordination of Nutrition Care: Continue to monitor while inpatient Plan of Care discussed with: Patient Goals: Goals: Meet at least 75% of estimated needs Nutrition Monitoring and Evaluation: Behavioral-Environmental Outcomes: Readiness for Change Food/Nutrient Intake Outcomes: Food and Nutrient Intake, Vitamin/Mineral Intake Physical Signs/Symptoms Outcomes: Biochemical Data, Weight, Skin, Fluid Status or Edema Discharge Planning: Continue current diet, Recommend pursue outpatient diabetes education STELLA SOARES RD, LD Contact: [phone] Order for front wheeled walker sent to [employer] this a.m. per Patient request for choice of Pharmacy. 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 Knee scooter not covered by insurance as it is considered a convenience item. Spoke with [facility] in [place] where Patient can rent one for $50/month. Information provided to Patient for his consideration. Patient to be discharged home later today. DIANA Ramos 07/05/[address] Alvarenga's office to schedule podiatry appointment. Per office phone message, office is closed on Fridays. Patient encouraged to call office on Saturday to set up an appointment, information added to his discharge AVS. Podiatry Progress Note SUBJECTIVE no pain, no complaints OBJECTIVE Physical VITALS: BP 110/67 Pulse 88 Temp 98.1 F (36.7 C) (Oral) Resp 16 Ht 1.753 m (5' 9 ) Wt 86.8 kg (191 lb 5.8 oz) SpO2 95% BMI 28.26 kg/m CONSTITUTIONAL: awake, alert, cooperative, no apparent distress, and appears stated age Reduced wound size. No redness , swelling and minimal drainage Data CBC with Differential: Lab Results Component Value Date/Time WBC 5.8 07/04/2023 04:11 AM RBC 3.24 07/04/2023 04:11 AM HGB 10.3 07/04/2023 04:11 AM HCT 30.2 07/04/2023 04:11 AM PLT 194 07/04/2023 04:11 AM MCV 93.2 07/04/2023 04:11 AM MCH 31.8 07/04/2023 04:11 AM MCHC 34.1 07/04/2023 04:11 AM RDW 13.8 07/04/2023 04:11 AM LYMPHOPCT 37 07/04/2023 04:11 AM MONOPCT 7 07/04/2023 04:11 AM BASOPCT 1 07/04/2023 04:11 AM MONOSABS 0.38 07/04/2023 04:11 AM LYMPHSABS 2.14 07/04/2023 04:11 AM EOSABS 0.18 07/04/2023 04:11 AM BASOSABS 0.03 07/04/2023 04:11 AM DIFFTYPE YES 06/27/2022 03:45 AM CMP: Lab Results Component Value Date/Time NA 137 07/04/2023 04:11 AM K 4.4 07/04/2023 04:11 AM CL 103 07/04/2023 04:11 AM CO2 22 07/04/2023 04:11 AM BUN 11 07/04/2023 04:11 AM CREATININE 1.2 07/04/2023 04:11 AM GFRAA >60 11/17/2021 06:43 AM AGRATIO NOT REPORTED 04/21/2021 09:57 AM LABGLOM 68 07/04/2023 04:11 AM GLUCOSE 236 07/04/2023 04:11 AM PROT 7.3 07/03/2023 03:23 PM CALCIUM 8.9 07/04/2023 04:11 AM BILITOT 0.8 07/03/2023 03:23 PM ALKPHOS 138 07/03/2023 03:23 PM AST 16 07/03/2023 03:23 PM ALT 15 07/03/2023 03:23 PM Wound Culture: sensitive S. Aureus Current Inpatient Medications Current Facility-Administered Medications: povidone-iodine (BETADINE) 10 % external solution, , Topical, BID doxycycline (VIBRAMYCIN) 100 mg in sodium chloride 0.9 % 100 mL IVPB, 100 mg, IntraVENous, Q12H amitriptyline (ELAVIL) tablet 25 mg, 25 mg, Oral, Nightly aspirin EC tablet 81 mg, 81 mg, Oral, Daily atorvastatin (LIPITOR) tablet 40 mg, 40 mg, Oral, Daily mometasone-formoterol (DULERA) 200-5 MCG/ACT inhaler 2 puff, 2 puff, Inhalation, BID RT buPROPion (WELLBUTRIN XL) extended release tablet 150 mg, 150 mg, Oral, QAM cyclobenzaprine (FLEXERIL) tablet 5 mg, 5 mg, Oral, BID PRN DULoxetine (CYMBALTA) extended release capsule 60 mg, 60 mg, Oral, Daily glipiZIDE (GLUCOTROL) tablet 5 mg, 5 mg, Oral, BID AC insulin lispro (HUMALOG) injection vial 40 Units, 40 Units, SubCUTAneous, TID WC ipratropium 0.5 mg-albuterol 2.5 mg (DUONEB) nebulizer solution 1 Dose, 1 Dose, Inhalation, Q4H PRN [id number] 3-35-2 mg (METANX) capsule (Patient Supplied), 1 capsule, Oral, Daily lactobacillus (CULTURELLE) capsule 1 capsule, 1 capsule, Oral, BID WC multivitamin 1 tablet, 1 tablet, Oral, Daily pantoprazole (PROTONIX) tablet 40 mg, 40 mg, Oral, BID AC pregabalin (LYRICA) capsule 75 mg, 75 mg, Oral, TID rOPINIRole (REQUIP) tablet 3 mg, 3 mg, Oral, Nightly ipratropium (ATROVENT) 0.02 % nebulizer solution 0.5 mg, 0.5 mg, Nebulization, TID RT vitamin B-12 (CYANOCOBALAMIN) tablet 1,000 mcg, 1,000 mcg, Oral, Daily Vitamin D (CHOLECALCIFEROL) tablet 1,000 Units, 1,000 Units, Oral, Daily sodium chloride flush 0.9 % injection 5-40 mL, 5-40 mL, IntraVENous, 2 times per day sodium chloride flush 0.9 % injection 5-40 mL, 5-40 mL, IntraVENous, PRN 0.9 % sodium chloride infusion, , IntraVENous, PRN enoxaparin (LOVENOX) injection 40 mg, 40 mg, SubCUTAneous, Daily ondansetron (ZOFRAN-ODT) disintegrating tablet 4 mg, 4 mg, Oral, Q8H PRN OR ondansetron (ZOFRAN) injection 4 mg, 4 mg, IntraVENous, Q6H PRN polyethylene glycol (GLYCOLAX) packet 17 g, 17 g, Oral, Daily PRN acetaminophen (TYLENOL) tablet 650 mg, 650 mg, Oral, Q6H PRN OR acetaminophen (TYLENOL) suppository 650 mg, 650 mg, Rectal, Q6H PRN piperacillin-tazobactam (ZOSYN) 3,375 mg in sodium chloride 0.9 % 50 mL IVPB (mini-bag), 3,375 mg, IntraVENous, Q8H glucose chewable tablet 16 g, 4 tablet, Oral, PRN dextrose bolus 10% 125 mL, 125 mL, IntraVENous, PRN OR dextrose bolus 10% 250 mL, 250 mL, IntraVENous, PRN glucagon injection 1 mg, 1 mg, SubCUTAneous, PRN dextrose 10 % infusion, , IntraVENous, Continuous PRN insulin lispro (HUMALOG) injection vial 0-8 Units, 0-8 Units, SubCUTAneous, TID WC insulin lispro (HUMALOG) injection vial 0-4 Units, 0-4 Units, SubCUTAneous, Nightly insulin glargine (LANTUS) injection vial 56 Units, 56 Units, SubCUTAneous, Daily ASSESSMENT AND PLAN Good progress left foot Risks of osteo discussed as low , but wound care and follow-up needed NWB critical to heal wound and stop the acute charcot reviewed again and agreed Oral amox sugg with knee scooter and qd betadine drsg Follow <1wk dr Alvarenga Hospitalist Progress Note 07/05/2023 5:15 AM Subjective: Admit Date: 07/03/2023 PCP: Sara Lester DO Interval History: Jillian has no complaints this am. He denies chest pain or SOB. No pain in the foot. Appetite is good, no nausea. Bowels are moving and he denies any trouble urinating. Diet: ADULT DIET; Regular; 4 carb choices (60 gm/meal) Medications: Scheduled Meds: povidone-iodine Topical BID doxycycline (VIBRAMYCIN) IV 100 mg IntraVENous Q12H amitriptyline 25 mg Oral Nightly aspirin 81 mg Oral Daily atorvastatin 40 mg Oral Daily mometasone-formoterol 2 puff Inhalation BID RT buPROPion 150 mg Oral QAM DULoxetine 60 mg Oral Daily glipiZIDE 5 mg Oral BID AC insulin lispro 40 Units SubCUTAneous TID WC [id number] 1 capsule Oral Daily lactobacillus 1 capsule Oral BID WC multivitamin 1 tablet Oral Daily pantoprazole 40 mg Oral BID AC pregabalin 75 mg Oral TID rOPINIRole 3 mg Oral Nightly ipratropium 0.5 mg Nebulization TID RT vitamin B-12 1,000 mcg Oral Daily Vitamin D 1,000 Units Oral Daily sodium chloride flush 5-40 mL IntraVENous 2 times per day enoxaparin 40 mg SubCUTAneous Daily piperacillin-tazobactam 3,375 mg IntraVENous Q8H insulin lispro 0-8 Units SubCUTAneous TID WC insulin lispro 0-4 Units SubCUTAneous Nightly insulin glargine 56 Units SubCUTAneous Daily Continuous Infusions: sodium chloride 15 mL/hr at 07/05/23 0256 dextrose Patient's current medications documented, reviewed, and updated. CBC: Recent Labs 07/03/23 1523 07/04/23 0411 WBC 6.0 5.8 HGB 10.8* 10.3* PLT 203 194 BMP: Recent Labs 07/03/23 1523 07/04/23 0411 NA 138 137 K 4.8 4.4 CL 100 103 CO2 25 22 BUN 11 11 CREATININE 1.2 1.2 GLUCOSE 459* 236* Hepatic: Recent Labs 07/03/23 1523 AST 16 ALT 15 BILITOT 0.8 ALKPHOS 138* Troponin: No results for input(s): TROPONINI in the last 72 hours. BNP: No results for input(s): BNP in the last 72 hours. Lipids: No results for input(s): CHOL , HDL in the last 72 hours. Invalid input(s): LDLCALCU INR: No results for input(s): INR in the last 72 hours. Objective: Vitals: BP (!) 101/52 Pulse 94 Temp 98.3 F (36.8 C) (Axillary) Resp 16 Ht 1.753 m (5' 9 ) Wt 86.6 kg (190 lb 14.7 oz) SpO2 94% BMI 28.19 kg/m General appearance: alert and cooperative with exam HEENT: Head: Normocephalic, no lesions, without obvious abnormality. Eye: Normal external eye, conjunctiva, lids cornea, WES. Nose: Normal external nose, mucus membranes and septum. Neck: no adenopathy, no carotid bruit, and supple, symmetrical, trachea midline Lungs: clear to auscultation bilaterally Heart: regular rate and rhythm and S1, S2 normal Abdomen: soft, non-tender; bowel sounds normal; no masses, no organomegaly Extremities: No lower leg edema, no calf tenderness. Dressing over the left foot. Neurologic: Mental status: Alert, oriented, thought content appropriate Medical Decision Making (MDM) Data: External documents reviewed: - My CXR interpretation: - My EKG interpretation: - Discussed with: - Tests considered but not ordered: - Heart score: - Social Determinants of Health that impact treatment or disposition: - Assessment and Plan: Left foot Ulcer - stage II according to Podiatry. Wound culture with Louise. Jillian was started on IV Zosyn and Doxycycline upon admission. Blood cultures with no growth. Dr. Peace, in Podiatry, consulted with debridement on 07/03. Charcot foot. DM II - BS > 400 upon admission. Humalog SS added to his normal dose of Lantus and Humalog. Hyperlipidemia - on Lipitor. H/O Depression / anxiety - on Elavil, Wellbutrin XL, and Cymbalta. COPD - on Dulera with PRN Duoneb. GERD - on Protonix. Diabetic Peripheral neuropathy - on Lyrica. Restless legs - controlled on Requip. Vitamin D deficiency - on replacement. Plan: Continue with the current treatment while awaiting sensitivity of Staph. Dr. Peace to determine when patient can be discharged and which oral antibiotic he would prefer at discharge. Differential Diagnosis: - Condition is improving / unchanged / worsening: Improving Condition is at treatment goal: Close Chronic condition is / is not having mild / moderate, severe exacerbation, progression or side effects of treatment: - Shared decision making: - Code status and discussions: Full Medical Necessity: In patient is appropriate for this patient secondary to the need for IV antibiotics. DVT prophylaxis: [x] Lovenox [] SCDs [] SQ Heparin [] Encourage ambulation, low risk for DVT, no chemical or mechanical prophylaxis necessary [] Already on Anticoagulation Patient Active Problem List: Pure hypercholesterolemia Essential hypertension, benign GERD (gastroesophageal reflux disease) RLS (restless legs syndrome) Uncontrolled type 2 diabetes mellitus with peripheral neuropathy Major depressive disorder, single episode, moderate (HCC) Mixed simple and mucopurulent chronic bronchitis (HCC) Charcot's arthropathy Foot ulcer, left, limited to breakdown of skin (HCC) Omid Carias MD, MD Rounding Hospitalist 2020 Patient is alert and oriented to time, place, person and situation. FSBS 241. Snack provided per pt request. Medications administered as ordered as well as PRN Flexeril per pt request. IV fluids infusing without incident. VITALS: BP 109/64 Pulse 98 Temp 98.2 F (36.8 C) (Oral) Resp 16 Ht 1.753 m (5' 9 ) Wt 86.6 kg (190 lb 14.7 oz) SpO2 96% BMI 28.19 kg/m . Pt reports pain 0 out of 10. Pt continent of bowel and bladder. Patient is a high fall risk, discussed such with patient, as well as, fall prevention strategies. Pt ambulated to and from bathroom using Left knee scooter and tolerated fairly well. Left plantar foot dressing change performed per orders as well as Left sherwood dressing change. Pt tolerated well with no complaints of pain before, during, or after dressing changes. Pt updated on plan of care as well as the use of call light throughout this shift. Lights dimmed for patient comfort with no further needs at this time. Lunch time humalog held at this time per Dr. Carias. FSBS 73. Met with Patient this a.m. during quality flow rounding to discuss discharge planning. Patient is a 63 year old white male, admitted with a diagnosis of left foot ulcer. Patient is alert and oriented, polite and cooperative with this assessment. States that his plan is to return home with his girl friend following this hospitalization. Patient [place] in [place] with his significant other. Patient has a knee scooter, cane, home oxygen and a shower chair to use at home as needed. Patient reports no current use of outside resources or services. Patient ordinarily drives himself and provides for his own transportation needs. 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 History of anxiety and depression and Diabetes noted. PCP is Dr. Lester. Patient sees Dr. Alvarenga in podiatry as well. Patient reports that he has medical insurance coverage and that his prescription medications are well covered at this time. Discharge plan is home when stable. Patient may need a front wheeled walker at discharge as he says that he cannot use crutches. Patient is a 'Full Code' status and has no medical directives currently on file. Designates his son as his decision maker with girl friend second. Patient considering implementing Advanced Directives. HIMS MANAGER to monitor and assist with further discharge planning needs as they present. DIANA Ramos 07/04/2023 Dressing to left lateral leg torn down; moderate yellow thick exudate on old padded tegaderm bandage; wound bed cleansed with saline and wound painted with betadine as ordered; dsd 4x4 applied and secured with paper tape. Pt tolerated well. Dressing is still clean dry, and intact on left plantar foot from morning dressing change by Dr. Peace. Patient is alert and oriented to time, place, person and situation. FSBS 157. Snack provided per pt request. Medications administered as ordered as well as PRN Flexeril per pt request. IV fluids infusing without incident. Pt reports pain 0 out of 10. Pt continent of bowel and bladder. Patient is not a high fall risk, discussed such with patient, as well as, fall prevention strategies. Pt updated on plan of care as well as the use of call light throughout this shift. Lights dimmed for patient comfort with no further needs at this time. documented in this encounter [facility] 07-05-2023 Hospital Discharge instructions Janice Matias RN - 07/05/2023 9:22 AM EDT Discharge Instructions Admission Date: 07/03/2023 Discharge Date: 07/05/23 Disposition: Home. Discharge Instructions: Resume previous home medication. Take Amoxicillin 500 mg three times a day x 10 days. Activity: As tolerated (non weight bearing left foot). Diet: Diabetic Wound care as directed by Dr. Peace. Follow up with Sara Lester DO in 1 week. Janice Matais RN - 07/05/2023 10:20 AM EDT supply coordinator prescription and walker from [facility]. Non-weight bearing to left foot- use wheeled walker, or knee scooter if you choose to rent one. Call to schedule follow up appointment with your product safety expert, Dr. Alvarenga. Daily dressing change to left foot and leg. Apply betadine followed with dry, sterile dressing. Janice Matias RN - 07/05/2023 10:15 AM EDT Maintain non-weight bearing status to left foot using front wheeled walker, or knee scooter, if you choose to rent one. Stella Soares RD, ANNE MARIE - 07/05/2023 11:29 AM EDT Good nutrition is important when healing from an illness, injury, or surgery. Follow any nutrition recommendations given to you during your hospital stay. If you were given an oral nutrition supplement while in the hospital, continue to take this supplement at home. You can take it with meals, in-between meals, and/or before bedtime. These supplements can be purchased at most local grocery stores, pharmacies, and chain super-stores. If you have any questions about your diet or nutrition, call the hospital and ask for the dietitian. Eat 3 well balanced meals with a variety of lean meats, fresh fruits, vegetables, whole grains and low fat dairy. Include protein foods with meals and snacks (cheese, chicken, eggs, fish, etc.). Take daily multivitamin with minerals to aid healing needs. Start 500 mg vitamin C daily for healing needs. Start 220 mg zinc sulfate daily for healing needs. Consider comprehensive outpatient diabetes education. Call Stella (dietitian) with any questions: [phone] The following attachments cannot be sent through Care Everywhere.Charcot Foot (Namibian)amoxicillin (Namibian)Diabetes and Wound Care: Video (Namibian)Care for a Skin Wound: Video (Namibian)Diabetes Diet Meal Planning: General Info (Namibian)documented in this encounter [facility] 10-19-2022 Note Microbiology PROCEDURE: Wound Culture [R1] SOURCE: Wound BODY SITE: Foot L COLLECTED DATE/TIME: 10/17/2022 12:20 EDT RECEIVED DATE/TIME: 10/17/2022 15:25 EDT START DATE/TIME: 10/17/2022 15:25 EDT FREE TEXT SOURCE: deep tissue culture left foot ulcer Pamela HECK, Zenon Santiago DPM, Zenon Altamirano FINAL REPORTS Final Report [] Verified Date/Time: 10/19/2022 15:31 EDT 2+ Enterococcus faecalis 2+ Staphylococcus epidermidis Scant growth of Bacteroides species Presumptive STAINS Gram Stain Report [] Verified Date/Time: 10/17/2022 16:41 EDT Occasional Gram Positive Cocci SUSCEPTIBILITY RESULTS LEGEND: S=Susceptible, N/R=Not Reported, Blank=Data not available, or drug not advisable or tested, I=Intermediate, ESBL=Extended spectrum beta-lactamase, R=Resistant, TFG=Thymidine-dependent strain, EARLENE=Beta-lactamase positive, LANDY=mcg/m;(mg/L), S*=Predicted susceptible interp, R*=Predicted resistant interp Entfaeca Staepi Antibiotic LANDY Dilutn LANDY Interp LANDY Dilutn LANDY Interp Amoxicillin/ <=4/2 R Clavulanate Ampicillin <=2 S >8 R Ampicillin/ <=8/4 R Sulbactam Azithromycin >4 R Cefazolin <=8 R Ciprofloxacin >2 R Clindamycin >2 R Daptomycin 4 S <=1 S Erythromycin 2 I >4 R Gentamicin >8 R Levofloxacin 4 I Linezolid <=2 S <=2 S Nitrofurantoin <=32 Oxacillin >2 R Penicillin 2 S >8 R Rifampin >2 R <=1 S Tetracycline >8 R Trimethoprim/ >2/38 R Sulfa Vancomycin 2 S 1 S Performing Locations R1: This test was performed at: [facility], [address] [place] [address], [id number] , , [facility] Comment on above: Performed By: #### [id number] ####[id number] [place] [address] 10-09-2022 Note Microbiology PROCEDURE: Blood Culture Charcoal [R1] SOURCE: Blood BODY SITE: Arm L COLLECTED DATE/TIME: 10/02/2022 09:49 EDT RECEIVED DATE/TIME: 10/02/2022 10:05 EDT START DATE/TIME: 10/02/2022 10:05 EDT FREE TEXT SOURCE: left forearm Sakina DO, Bill Freeman DO FINAL REPORTS Final Report [] Verified Date/Time: 10/09/2022 17:01 EDT No growth at 7 days. Performing Locations R1: [facility] at: [facility], [address] [place] [address], [address] [place] [address], [facility] Comment on above: Performed By: #### 1 [id number] ####[address] [address] 10-09-2022 Note Microbiology PROCEDURE: Blood Culture Charcoal [R1] SOURCE: Blood BODY SITE: Arm R COLLECTED DATE/TIME: 10/02/2022 09:39 EDT RECEIVED DATE/TIME: 10/02/2022 10:03 EDT START DATE/TIME: 10/02/2022 10:03 EDT FREE TEXT SOURCE: IV start/right forearm Sakina DO, Bill Freeman DO FINAL REPORTS Final Report [] Verified Date/Time: 10/09/2022 16:59 EDT No growth at 7 days. Performing Locations R1: This test was performed at: [facility], [address] [place] [address], [address] [place] [address], [facility] Comment on above: Performed By: #### 1 [id number] ####[address] [address] 10-03-2022 Hospital Discharge instructions Patient Education 10/03/2022 14:38:10 Diabetes Mellitus and Foot Care Diabetes Mellitus and Foot Care Foot care is an important part of your health, especially when you have diabetes. Diabetes may cause you to have problems because of poor blood flow (circulation) to your feet and legs, which can cause your skin to: Become thinner and bobbin drier. Break more easily. Heal more slowly. Peel and crack. You may also have nerve damage (neuropathy) in your legs and feet, causing decreased feeling in them. This means that you may not notice minor injuries to your feet that could lead to more serious problems. Noticing and addressing any potential problems early is the best way to prevent future foot problems. How to care for your feet Foot hygiene Wash your feet daily with warm water and mild soap. Do not use hot water. Then, pat your feet and the areas between your toes until they are completely dry. Do not soak your feet as this can dry your skin. Trim your toenails straight across. Do not dig under them or around the cuticle. File the edges of your nails with an emery board or nail file. Apply a moisturizing lotion or petroleum jelly to the skin on your feet and to dry, brittle toenails. Use lotion that does not contain alcohol and is unscented. Do not apply lotion between your toes. Shoes and socks Wear clean socks or stockings every day. Make sure they are not too tight. Do not wear knee-high stockings since they may decrease blood flow to your legs. Wear shoes that fit properly and have enough cushioning. Always look in your shoes before you put them on to be sure there are no objects inside. To break in new shoes, wear them for just a few hours a day. This prevents injuries on your feet. Wounds, scrapes, corns, and calluses Check your feet daily for blisters, cuts, bruises, sores, and redness. If you cannot see the bottom of your feet, use a mirror or ask someone for help. Do not cut corns or calluses or try to remove them with medicine. If you find a minor scrape, cut, or break in the skin on your feet, keep it and the skin around it clean and dry. You may clean these areas with mild soap and water. Do not clean the area with peroxide, alcohol, or iodine. If you have a wound, scrape, corn, or callus on your foot, look at it several times a day to make sure it is healing and not infected. Check for: ?Redness, swelling, or pain. ?Fluid or blood. ?Warmth. ?Pus or a bad smell. General tips Do not cross your legs. This may decrease blood flow to your feet. Do not use heating pads or hot water bottles on your feet. They may burn your skin. If you have lost feeling in your feet or legs, you may not know this is happening until it is too late. Protect your feet from hot and cold by wearing shoes, such as at the beach or on hot pavement. Schedule a complete foot exam at least once a year (annually) or more often if you have foot problems. Report any cuts, sores, or bruises to your health care provider immediately. Where to find more information [place] [employer]: www.diabetes.org Association of Diabetes Care & Education Specialists: www.diabeteseducator.org Contact a health care provider if: You have a medical condition that increases your risk of infection and you have any cuts, sores, or bruises on your feet. You have an injury that is not healing. You have redness on your legs or feet. You feel burning or tingling in your legs or feet. You have pain or cramps in your legs and feet. Your legs or feet are numb. Your feet always feel cold. You have pain around any toenails. Get help right away if: You have a wound, scrape, corn, or callus on your foot and: ?You have pain, swelling, or redness that gets worse. ?You have fluid or blood coming from the wound, scrape, corn, or callus. ?Your wound, scrape, corn, or callus feels warm to the touch. ?You have pus or a bad smell coming from the wound, scrape, corn, or callus. ?You have a fever. ?You have a red line going up your leg. Summary Check your feet every day for blisters, cuts, bruises, sores, and redness. Apply a moisturizing lotion or petroleum jelly to the skin on your feet and to dry, brittle toenails. Wear shoes that fit properly and have enough cushioning. If you have foot problems, report any cuts, sores, or bruises to your health care provider immediately. Schedule a complete foot exam at least once a year (annually) or more often if you have foot problems. This information is not intended to replace advice given to you by your health care provider. Make sure you discuss any questions you have with your health care provider. Document Revised: 09/15/2020 Document Reviewed: 09/15/2020 [employer] Patient Education 2022 [employer]. 10/03/2022 14:37:56 Diabetes Mellitus and Foot Care Diabetes Mellitus and Foot Care Foot care is an important part of your health, especially when you have diabetes. Diabetes may cause you to have problems because of poor blood flow (circulation) to your feet and legs, which can cause your skin to: Become thinner and bobbin drier. Break more easily. Heal more slowly. Peel and crack. You may also have nerve damage (neuropathy) in your legs and feet, causing decreased feeling in them. This means that you may not notice minor injuries to your feet that could lead to more serious problems. Noticing and addressing any potential problems early is the best way to prevent future foot problems. How to care for your feet Foot hygiene Wash your feet daily with warm water and mild soap. Do not use hot water. Then, pat your feet and the areas between your toes until they are completely dry. Do not soak your feet as this can dry your skin. Trim your toenails straight across. Do not dig under them or around the cuticle. File the edges of your nails with an emery board or nail file. Apply a moisturizing lotion or petroleum jelly to the skin on your feet and to dry, brittle toenails. Use lotion that does not contain alcohol and is unscented. Do not apply lotion between your toes. Shoes and socks Wear clean socks or stockings every day. Make sure they are not too tight. Do not wear knee-high stockings since they may decrease blood flow to your legs. Wear shoes that fit properly and have enough cushioning. Always look in your shoes before you put them on to be sure there are no objects inside. To break in new shoes, wear them for just a few hours a day. This prevents injuries on your feet. Wounds, scrapes, corns, and calluses Check your feet daily for blisters, cuts, bruises, sores, and redness. If you cannot see the bottom of your feet, use a mirror or ask someone for help. Do not cut corns or calluses or try to remove them with medicine. If you find a minor scrape, cut, or break in the skin on your feet, keep it and the skin around it clean and dry. You may clean these areas with mild soap and water. Do not clean the area with peroxide, alcohol, or iodine. If you have a wound, scrape, corn, or callus on your foot, look at it several times a day to make sure it is healing and not infected. Check for: ?Redness, swelling, or pain. ?Fluid or blood. ?Warmth. ?Pus or a bad smell. General tips Do not cross your legs. This may decrease blood flow to your feet. Do not use heating pads or hot water bottles on your feet. They may burn your skin. If you have lost feeling in your feet or legs, you may not know this is happening until it is too late. Protect your feet from hot and cold by wearing shoes, such as at the beach or on hot pavement. Schedule a complete foot exam at least once a year (annually) or more often if you have foot problems. Report any cuts, sores, or bruises to your health care provider immediately. Where to find more information [place] [employer]: www.diabetes.org Association of [employer] Education Specialists: www.diabeteseducator.org Contact a health care provider if: You have a medical condition that increases your risk of infection and you have any cuts, sores, or bruises on your feet. You have an injury that is not healing. You have redness on your legs or feet. You feel burning or tingling in your legs or feet. You have pain or cramps in your legs and feet. Your legs or feet are numb. Your feet always feel cold. You have pain around any toenails. Get help right away if: You have a wound, scrape, corn, or callus on your foot and: ?You have pain, swelling, or redness that gets worse. ?You have fluid or blood coming from the wound, scrape, corn, or callus. ?Your wound, scrape, corn, or callus feels warm to the touch. ?You have pus or a bad smell coming from the wound, scrape, corn, or callus. ?You have a fever. ?You have a red line going up your leg. Summary Check your feet every day for blisters, cuts, bruises, sores, and redness. Apply a moisturizing lotion or petroleum jelly to the skin on your feet and to dry, brittle toenails. Wear shoes that fit properly and have enough cushioning. If you have foot problems, report any cuts, sores, or bruises to your health care provider immediately. Schedule a complete foot exam at least once a year (annually) or more often if you have foot problems. This information is not intended to replace advice given to you by your health care provider. Make sure you discuss any questions you have with your health care provider. Document Revised: 09/15/2020 Document Reviewed: 09/15/2020 [employer] Patient Education 2022 [employer]. Follow Up Care 10/02/2022 09:25:48 With:Zenon Santiago Address: [facility]: [address]/o [address] [place] [address]- When:10/10/2022 09:45:00 Comments:Wound clinic With:SARA LESTER Address: [address] [place], [place] [address] [address]- Business (1) When: Unknown [facility] 10-03-2022 Evaluation + Plan note Extrac felix from: Title:Discharge Note Author:Shyla MCGILL, Anthony Juárez ate:10/03/22 Stable Home Discharge Diet(s): Calorie Controlled- 2000 Calorie Diet (10/03/22 09:57:00) Prescriptions cholecalciferol 1000 intl units (25 mcg) oral tablet, 25 mcg= 1 tab(s), Oral, Daily cyanocobalamin 1000 mcg Tab, 1000 mcg= 1 tab(s), Oral, Daily ferrous sulfate 325 mg Tab, 325 mg= 1 tab(s), Oral, TID Flexeril 10 mg Tab, 10 mg= 1 tab(s), Oral, TID glimepiride 4 mg Tab, 4 mg= 1 tab(s), Oral, BID glucometer, matching strips and lancets, insulin pen and needles, alcohol swabs, 0 insulin glargine 100 units/mL SubQ Ana 10 mL, 20 unit(s), SubCutaneous, Bedtime Insulin Lispro KwikPen 100 units/mL injectable solution, See Instructions metformin 500 mg ER Tab, 500 mg= 1 tab(s), Oral, Bedtime metformin 750 mg ER Tab, 750 mg= 1 tab(s), Oral, BID metoprolol 25 mg ER Tab, 12.5 mg= 0.5 tab(s), Oral, Daily Randolph 325 mg-5 mg oral tablet, 1 tab(s), Oral, q6hr, PRN repaglinide 1 mg Tab, 1 mg= 1 tab(s), Oral, TIDAC, Not taking Home Advair Discus 100 mcg-50 mcg Powder, 1 puff(s), Inhalation, BID amitriptyline 25 mg Tab, 25 mg= 1 tab(s), Oral, Once a day (at bedtime) atorvastatin 40 mg Tab, 40 mg= 1 tab(s), Oral, Daily Benadryl 25 mg Cap, 25 mg= 1 cap(s), Oral, BID buPROPion 150 mg/24 hours XL Tab, 150 mg= 1 tab(s), Oral, Daily duloxetine 60 mg oral delayed release capsule, 60 mg= 1 cap(s), Oral, Daily Januvia 100 mg Tab, 100 mg= 1 tab(s), Oral, Daily Nexium 40 mg Cap-EC, Oral, Daily pregabalin 75 mg Cap, 1, Oral, TID ropinirole 1 mg Tab, 3 mg= 3 tab(s), Oral, Bedtime Zocor 40 mg Tab, 40 mg= 1 tab(s), Oral, Once a day (at bedtime) With When Contact Information Zenon Santiago In 1 week 10/10/2022 T [facility]: [address] [place] [address]- Additional Instructions: SARA LESTER In 0 days [address] [place] [address]- [facility] (1) Additional Instructions: Extracted from: Title:SOAP Note: Simple * Author:Jessica Santiago DPM Date:10/03/22 Impression and Plan Pt is diabetic with chronic wound to the level of deep exposed fat layer, there are no signs of infection pt can be discharged today with remaining wound care supplies instructed for to change. applied aquacel ag to wound gauze abd kerlix and tubidgrip she can change every other and will see in wound care next week Extracted from: Title:Podiatric surgery Author:Maxim Santiago DPM Date:10/02/22 Impression and Plan I educated the patient and the patient's on the contact dermatitis to the dorsal aspect of the left foot recommended topical steroid be applied daily. Continue local wound care to the wound itself continue with IV antibiotics cultures and sensitivities were taken. Also recommended PVRs be ordered as well for vascular assessment. We will follow until discharge Extracted from: Title:Admission H & P [facility] Date:10/02/22 type 2 diabetes, hypertensio n, vitamin D deficiency, hyperlipidemia, chronic GERD, COPD w/DM foot infection Assessment/Plan Dehydration: IVF T2DM: Exacerbation of DM, start insulin sub q DM diet DM foot ulcer: I do not see overt signs of infection, he has no fevers or ANC. His erythema improved, as evident by pictures his supplied me with, by simply removing the bandage. Erythema was likely from vascular congestion. Consult podiatry very much appreciate Dr. Santiago assistance. COPD: No s/s of exacerbation, I/S + duo nebs HLD : stable, statin GERD: stable, PPI Vitamin D: Vitamin D replenishment Anemia: no s/s of bleeding, likely Anemia of chronic disease Time: 55 mins Plan: As above Extracted from: Title:ED Note Author:Bill Presley DO Date:09/09 07/31 Diabetic foot ulcer (E11.621 : Type 2 diabetes mellitus with foot ulcer) Non-pressure chronic ulcer of other part of unspecified foot with unspecified severity (L97.509: Non-pressure chronic ulcer of other part of unspecified foot with unspecified severity) Sepsis due to cellulitis (L03.90: Cellulitis, unspecified) Sepsis, unspecified organism (A41.9: Sepsis, unspecified organism) Orders: piperacillin-tazobactam + Sodium Chloride 0.9% intravenous solution 50 mL, 3.375 gram = 1 EA, IV Piggyback, Once, Stop date 10/02/22 10:33:00 EDT, STAT, Start date 10/02/22 10:33:00 EDT, 100 mL/hr, Infuse over 30 minute(s), 10/02/22 10:33:00 EDT Sodium Chloride 0.9% intravenous solution 1,000 mL, 1,000 mL, IV, 1,000 mL/hr, STAT, Start date 10/02/22 9:42:00 EDT, 1 hour(s), Total volume (mL): 1,000, 92.2 kg, 2.12, m2 vancomycin + Sodium Chloride 0.9% intravenous solution 250 mL, Reason for Vancomycin: Acute hospitalization within last year, 1,000 mg = 1 EA, IV Piggyback, Once, Stop date 10/02/22 11:00:00 EDT, Routine, Start date 10/02/22 11:00:00 EDT, Infuse over 60 minute(s) Automated Diff Blood Culture Charcoal Blood Culture Charcoal CBC w/ Auto Diff Comprehensive Metabolic Panel Continuous Pulse Oximetry ECG 12 Lead Adult ED Cardiac Monitoring ED Physician consult Hospitalist for continued care eGFR Extra SST Tube Lactic Acid Lactic Acid Lactic Acid Oxygen Therapy PT & PTT Saline Lock Insert Troponin XR Foot 3+ Views Left Future Appointments Appointment Date:10/10/2022 09:45:00 AM Scheduled Provider:Zenon Santiago DPM Location:[facility] CLINIC Appointment Type: Follow Up Visit ([facility]) [facility]07-26-2023 NoteAdmission and Discharge Information Admitting Physician - Anthony Mansfield MD Admitting Diagnoses: Discharge Diagnoses 1. Chronic GERD, 10/02/2022 2. HTN (hypertension), 10/02/2022 3. diabetes, 10/02/2022 4. HLD (hyperlipidemia), Hyperlipidemia 5. Diabetic foot ulcer, 10/02/2022 Non-pressure chronic ulcer of other part of unspecified foot with unspecified severity, 10/02/2022 Procedure History hernia repair X 3, Lasik left eye. Hospital Course 62-year-old male with multiple comorbidities most significant for a diabetic foot wound. Was being followed by podiatry. There is a very small suspicion that he may have had an infection. He did not have any antibiotics and his wound had improved. Dietary had seen the patient. Okay for patient to follow-up outpatient. I agree with podiatry no need for any antibiotics at this time. Did have an extensive conversation with his that at this time there is no indication for antibiotics however if his wound does not properly looked after he may develop a infection at a later time. All questionsanswered. Patient's family agreeable to after mentioned plan. - On day of discharge patient was vitally, hemodynamically clinically stable. Patient verbalized understanding and agreement with above. A good marilee effort was made to discuss the above with the patient. Teach back method was used when discussing plan and need for referrals with patients. - Follow Up Patient is to follow up with podiatry Patient is to follow up with PCP for transition of care - Discharge Instructions: Given Discharge Medications: Reviewed Discharge Status: Improved Discharge disposition: Stable - Prescriptions reviewed with Patient Physical Exam Vitals & Measurements T: 36.7 ?C(Oral) TMIN: 36.6 ?C(Axillary) TMAX: 36.8 ?C(Axillary) HR: 89(Monitored) RR: 17 BP: 113/72 SpO2: 94% HT: 175.26 cm WT: 90.3 kg General: alert, no acute distress Psychiatric: cooperative, affect appropriate for age Neurological: awake, alert, oriented, speech normal Cardiovascular: no overt murmurs Respiratory: no adventitious breath sounds Gastrointestinal: soft NT, NG, NR Extremities: left lower limb in dressing appears to be c/d/i Laboratory Results Automated Diff (10/02/2022) Neutro Auto - 56.3 % Lymph Auto - 33.0 % Pope Auto - 6.4 % Eos Auto - 3.3 % Basophil Auto - 1.0 % Neutro Absolute - 3.2 E9/L Lymph Absolute - 1.9 E9/L Pope Absolute - 0.4 E9/L Eos Absolute - 0.2 E9/L Basophil Absolute - 0.1 E9/L Capillary Glucose POC (10/03/2022) Glucose Cap - 222 mg/dL POC Device SN - [id number] POC User ID - [id number] POC Username - AUSTIN CURRIE CMP (10/02/2022) Glucose Lvl - 326 mg/dL BUN - 14 mg/dL Creatinine - 1.2 mg/dL BUN/Creat Ratio - 12 Sodium Lvl - 135 mmol/L Potassium Lvl - 3.8 mmol/L Chloride - 99 mmol/L CO2 - 25 mmol/L AGAP - 15 mEq/L Calcium Lvl - 9.3 mg/dL Alk Phos - 127 Int._Unit/L ALT - 23 Int._Unit/L AST - 25 Int._Unit/L Total Protein - 8.2 gm/dL Albumin Lvl - 4.1 gm/dL Globulin - 4.1 gm/dL A/G Ratio - 1.0 Bili Total - 0.7 mg/dL eGFR (10/02/2022) eGFR - 69 mL/min/1.73 m2 Ferritin (10/02/2022) Ferritin Lvl - 163 ng/mL Iron Level (10/02/2022) Iron - 92 mcg/dL Lactic Acid (10/02/2022) Lactic Acid Lvl - 2.3 mmol/L PT & PTT (10/02/2022) PT - 10.3 second(s) INR - 0.9 PTT - 31.1 second(s) TIBC Calculated (10/02/2022) Transferrin - 234 mg/dL TIBC - 327 mcg/dL Troponin (10/02/2022) Troponin - 5.20 pg/mL Tests Performed Automated Diff Blood Culture Charcoal -- Results Pending -- BMP -- Results Pending -- Capillary Glucose POC CBC w/ Auto Diff -- Results Pending -- CMP eGFR Ferritin Iron Level Lactic Acid Magnesium Level -- Results Pending -- PT & PTT TIBC Calculated Troponin US PVR Lower EXT Complete Bilat XR Foot 3+ Views Left Please visit your patient portal for your results or contact your primary care physician. Discharge Plan Patient Discharge Condition Stable Discharge Disposition Home Discharge Diet Discharge Diet(s): Calorie Controlled- 2000 Calorie Diet (10/03/22 09:57:00) Discharge Medication List Prescriptions cholecalciferol 1000 intl units (25 mcg) oral tablet, 25 mcg= 1 tab(s), Oral, Daily cyanocobalamin 1000 mcg Tab, 1000 mcg= 1 tab(s), Oral, Daily ferrous sulfate 325 mg Tab, 325 mg= 1 tab(s), Oral, TID Flexeril 10 mg Tab, 10 mg= 1 tab(s), Oral, TID glimepiride 4 mg Tab, 4 mg= 1 tab(s), Oral, BID glucometer, matching strips and lancets, insulin pen and needles, alcohol swabs, 0 insulin glargine 100 units/mL SubQ Ana 10 mL, 20 unit(s), SubCutaneous, Bedtime Insulin Lispro KwikPen 100 units/mL injectable solution, See Instructions metformin 500 mg ER Tab, 500 mg= 1 tab(s), Oral, Bedtime metformin 750 mg ER Tab, 750 mg= 1 tab(s), Oral, BID metoprolol 25 mg ER Tab, 12.5 mg= 0.5 tab(s), Oral, Daily Randolph 325 mg-5 mg oral tablet, 1 tab(s), Oral, q6hr, PRN (more content not included)...[facility] HospitalComment on above:Result Comment: Electronically Signed By: Shyla MCGILL, Anthony\.jarek\Date and Time Signed: 10/03/22 10:41 [id number] NoteChief Complaint Snet from wound clinnic for possible infection of left foot. Denies fever and chills. History of Present Illness 62-year-old male with a medical history significant for type 2 diabetes, hypertension, vitamin D deficiency, hyperlipidemia, chronic GERD, COPD w/DM foot infection and he follows with podiatry. He was at wound clinic having his foot checked when they noticed some erythema to the left lower limb. Herecently had a wound VAC that was removed. He was being followed by podiatry. He had the foot wrapped in a bandage. takes exquisite detailed photos. Has many photos. Appears that since he was moved from wound care to the ED for check of possible infection the erythema had self resolved. Patient endorses occasional alcohol use once every 2 weeks, denies tobacco use or recreational drug use. Informs me he is a full code. Review of Systems Constitutional: Deniesany complaints Eyes: Deniesloss of vision Ear, nose, mouth, throat: Deniesdifficulty swallowing Cardiovascular: Denieschest pain; denies calf pain, pressure, or edema. Respiratory: Deniesshortens of breath on exertion. Gastrointestinal: Deniesnausea and diarrhea. Urinary: Deniesincontinence, frequency, urgency, nocturia, pain, or discomfort. Skin: Deniesskin rash Neurological: Deniesnumbness, tingling, and tremors Psychiatric: Deniesmemory loss or depression. Mood pleasant. Scoring [place] Fall Risk Score: 55 High (10/02/22) Physical Exam Vitals & Measurements T: 36.8 ?C(Oral) HR: 98(Monitored) RR: 20 BP: 135/86 SpO2: 96% HT: 175.26 cm WT: 92.2 kg General: alert, no acute distress Psychiatric: cooperative, affect appropriate for age Neurological: awake, alert, oriented, speech normal Cardiovascular: no overt murmurs Respiratory: no adventitious breath sounds Gastrointestinal: soft NT, NG, NR Extremities: no rash Lab Results WBC: 5.7 E9/L (10/02/22 09:39:00) RBC: 4.2 E12/L Low (10/02/22 09:39:00) HGB: 12.6 gm/dL Low (10/02/22 09:39:00) Hct: 37.2 % Low (10/02/22 09:39:00) MCV: 88.5 fL (10/02/22 09:39:00) MCH: 30.1 pg (10/02/22 09:39:00) MCHC: 34 gm/dL (10/02/22 09:39:00) RDW: 15.3 % High (10/02/22 09:39:00) Platelet: 268 E9/L (10/02/22 09:39:00) MPV: 7.7 fL (10/02/22 09:39:00) Neutro Auto: 56.3 % (10/02/22 09:49:00) Lymph Auto: 33 % (10/02/22 09:49:00) Pope Auto: 6.4 % (10/02/22 09:49:00) Eos Auto: 3.3 % (10/02/22 09:49:00) Basophil Auto: 1 % (10/02/22 09:49:00) Neutro Absolute: 3.2 E9/L (10/02/22 09:49:00) Lymph Absolute: 1.9 E9/L (10/02/22 09:49:00) Pope Absolute: 0.4 E9/L (10/02/22 09:49:00) Eos Absolute: 0.2 E9/L (10/02/22 09:49:00) Basophil Absolute: 0.1 E9/L (10/02/22 09:49:00) PT: 10.3 second(s) (10/02/22 09:39:00) INR: 0.9 (10/02/22 09:39:00) PTT: 31.1 second(s) (10/02/22 09:39:00) Glucose Lvl: 326 mg/dL High (10/02/22 09:49:00) BUN: 14 mg/dL (10/02/22 09:49:00) Creatinine: 1.2 mg/dL (10/02/22 09:49:00) eGFR: 69 mL/min/1.73 m2 (10/02/22 09:49:00) BUN/Creat Ratio: 12 (10/02/22 09:49:00) Sodium Lvl: 135 mmol/L (10/02/22 09:49:00) Potassium Lvl: 3.8 mmol/L (10/02/22 09:49:00) Chloride: 99 mmol/L Low (10/02/22 09:49:00) CO2: 25 mmol/L (10/02/22 09:49:00) AGAP: 15 mEq/L (10/02/22 09:49:00) Calcium Lvl: 9.3 mg/dL (10/02/22 09:49:00) Alk Phos: 127 Int._Unit/L High (10/02/22 09:49:00) ALT: 23 Int._Unit/L (10/02/22 09:49:00) AST: 25 Int._Unit/L (10/02/22 09:49:00) Total Protein: 8.2 gm/dL High (10/02/22 09:49:00) Albumin Lvl: 4.1 gm/dL (10/02/22 09:49:00) Globulin: 4.1 gm/dL High (10/02/22 09:49:00) A/G Ratio: 1 Low (10/02/22 09:49:00) Bili Total: 0.7 mg/dL (10/02/22 09:49:00) Lactic Acid Lvl: 2.5 mmol/L High (10/02/22 09:49:00) Troponin: 5.2 pg/mL Low (10/02/22 09:49:00) Glucose Cap: 289 mg/dL High (10/02/22 11:53:00) POC Device SN: [id number] (10/02/22 11:53:00) POC User ID: [id number] (10/02/22 11:53:00) POC Username: POC Username (10/02/22 11:53:00) Assessment/Plan type 2 diabetes, hypertension, vitamin D deficiency, hyperlipidemia, chronic GERD, COPD w/DM foot infection Assessment/Plan Dehydration: IVF T2DM: Exacerbation of DM, start insulin sub q DM diet DM foot ulcer: I do not see overt signs of infection, he has no fevers or ANC. His erythema improved, as evident by pictures his supplied me with, by simply removing the bandage. Erythema was likely from vascular congestion. Consult podiatry very much appreciate Dr. Santiago assistance. COPD: No s/s of exacerbation, I/S + duo nebs HLD: stable, statin GERD: stable, PPI Vitamin D: Vitamin D replenishment Anemia: no s/s of bleeding, likely Anemia of chronic disease Time: 55 mins Plan: As above Problem List/Past Medical History Ongoing Anemia Chronic GERD diabetes Diabetic foot ulcer HLD (hyperlipidemia) HTN (hypertension) Hyperlipidemia Historical Acid reflux disease Procedure/Surgical History hernia repair X 3, Lasik left eye. Medications Inpatient atorvastatin 40 mg Tab, (more content not included)...[facility] HospitalComment on above:Result Comment: Electronically Signed By: Shyla MCGILL, [facility]\.br\Date and Time Signed: 10/02/22 12:08 [id number] Evaluation + Plan noteExtracted from: Title:Discharge Note Author:ALEX MCGILL, Martin Date: 08/14/22 Discharge To, Anticipated II - Home with responsible caregiver Discharge Diet(s): Calorie Controlled- 1800 Calorie Diet (08/11/22 10:05:00) Prescriptions cholecalciferol 1000 intl units (25 mcg) oral tablet, 25 mcg= 1 tab(s), Oral, Daily cyanocobalamin 1000 mcg Tab, 1000 mcg= 1 tab(s), Oral, Daily ferrous sulfate 325 mg Tab, 325 mg= 1 tab(s), Oral, TID Flexeril 10 mg Tab, 10 mg= 1 tab(s), Oral, TID glimepiride 4 mg Tab, 4 mg= 1 tab(s), Oral, BID glucometer, matching strips and lancets, insulin pen and needles, alcohol swabs, 0 insulin glargine 100 units/mL SubQ Ana 10 mL, 20 unit(s), SubCutaneous, Bedtime Insulin Lispro KwikPen 100 units/mL injectable solution, See Instructions metformin 500 mg ER Tab, 500 mg= 1 tab(s), Oral, Bedtime metformin 750 mg ER Tab, 750 mg= 1 tab(s), Oral, BID metoprolol 25 mg ER Tab, 12.5 mg= 0.5 tab(s), Oral, Daily Mucinex 600 mg Tab-ER, 600 mg= 1 tab(s), Oral, BID Randolph 325 mg-5 mg oral tablet, 1 tab(s), Oral, q6hr, PRN repaglinide 1 mg Tab, 1 mg= 1 tab(s), Oral, TIDAC Tessalon 100 mg Cap, 100 mg= 1 cap(s), Oral, TID, PRN Home Advair Discus 100 mcg-50 mcg Powder, 1 puff(s), Inhalation, BID Benadryl 25 mg Cap, 25 mg= 1 cap(s), Oral, BID Januvia 100 mg Tab, 100 mg= 1 tab(s), Oral, Daily Nexium 40 mg Cap-EC, Oral, Daily Zocor 40 mg Tab, 40 mg= 1 tab(s), Oral, Once a day (at bedtime) With When Contact Information SARA LESTER DO 08/21/2022 10:00 AM EDT [address] [place] [address]- Additional Instructions: [facility]: [place]- [phone] 08/15/2022 11:45 AM EDT Additional Instructions: Appointment has already been scheduled Keep scheduled appointment Hyperglycemia Blood Glucose Monitoring, Adult Community-Acquired Pneumonia, Adult Diet - Basic Carbohydrate Counting (Custom) Extracted from: Title:Discharge Note Author:Martin JOHNSON MD Date: 08/13/22 Discharge To, Anticipated II - Home with responsible caregiver Discharge Diet(s): Calorie Controlled- 1800 Calorie Diet (08/11/22 10:05:00) Prescriptions azithromycin 250 mg Tab, 250 mg= 1 tab(s), Oral, Daily cefdinir 300 mg Cap, 300 mg= 1 cap(s), Oral, BID cholecalciferol 1000 intl units (25 mcg) oral tablet, 25 mcg= 1 tab(s), Oral, Daily cyanocobalamin 1000 mcg Tab, 1000 mcg= 1 tab(s), Oral, Daily ferrous sulfate 325 mg Tab, 325 mg= 1 tab(s), Oral, TID Flexeril 10 mg Tab, 10 mg= 1 tab(s), Oral, TID glimepiride 4 mg Tab, 4 mg= 1 tab(s), Oral, BID glucometer, matching strips and lancets, insulin pen and needles, alcohol swabs, 0 insulin glargine 100 units/mL SubQ Ana 10 mL, 20 unit(s), SubCutaneous, Bedtime Insulin Lispro KwikPen 100 units/mL injectable solution, See Instructions metformin 500 mg ER Tab, 500 mg= 1 tab(s), Oral, Bedtime metformin 750 mg ER Tab, 750 mg= 1 tab(s), Oral, BID metoprolol 25 mg ER Tab, 12.5 mg= 0.5 tab(s), Oral, Daily Mucinex 600 mg Tab-ER, 600 mg= 1 tab(s), Oral, BID Randolph 325 mg-5 mg oral tablet, 1 tab(s), Oral, q6hr, PRN repaglinide 1 mg Tab, 1 mg= 1 tab(s), Oral, TIDAC Tessalon 100 mg Cap, 100 mg= 1 cap(s), Oral, TID, PRN Home Advair Discus 100 mcg-50 mcg Powder, 1 puff(s), Inhalation, BID Benadryl 25 mg Cap, 25 mg= 1 cap(s), Oral, BID Januvia 100 mg Tab, 100 mg= 1 tab(s), Oral, Daily Nexium 40 mg Cap-EC, Oral, Daily Zocor 40 mg Tab, 40 mg= 1 tab(s), Oral, Once a day (at bedtime) With When Contact Information SARA LESTER DO 08/21/2022 10:00 AM EDT [address] [place] [address]- Additional Instructions: [facility] [place]- [phone] 08/15/2022 11:45 AM EDT Additional Instructions: Appointment has already been scheduled Keep scheduled appointment Hyperglycemia Blood Glucose Monitoring, Adult Community-Acquired Pneumonia, Adult Diet - Basic Carbohydrate Counting (Custom) Extracted from: Title:Admission H & P Author:Bonifacio Cisneros MD Date:08/09/22 62-year-old male with past m edical history of left foot ulcer, diabetes, hypertension, hyperlipidemia, chronic GERD, prior nicotine use presented with shortness of breath, nausea. Left lower lobe pneumonia Acute hypoxic respiratory failure Received Zosyn and vancomycin in ED. Start ceftriaxone and azithromycin Start DuoNeb 4 times daily, incentive spirometer, flutter valve, Mucinex Send MRSA screen, blood culture On 2L O2 Lactic acidosis Sepsis Likely due to pneumonia Sinus tachycardia with heart rate 110, tachypnea with respiratory 20s. Lactic acid 3.2. No leukocytosis Hypotension SBP 80 90s Patient received 1 L normal saline bolus. 30 mL/kg bolus and then start normal saline 100 cc/h Telemetry HALEY Creatinine 1.7. Unknown baseline Likely due to sepsis, infection, hypertension Anemia Hemoglobin 9.8. Unknown baseline Continue to monitor Hyperglycemia Blood sugar 400s History of diabetes, on glimepiride, metformin repaglinide, Sitagliptin Inpatient: SSI Check HbA1c Hypertension On lisinopril. Hold Hyperlipidemia On simvastatin Chronic GERD On PPI Prior smoker Quit smoking many years ago Diet: diabetic Code: Full code DVT prophylaxis: heparin Dispo: inpatient; anticipated hosp stay >2 midnights This report was transcribed using voice recognition software. Every effort was made to ensure accuracy, however, inadvertently computerized red mud thickener operator mistakes may be present. Dr. Bonifacio Persaud [facility] Hospitalist Extracted from: Title:ED Note Author:Mino Daniels PA-C te:08/09/22 1. Sepsis (A41.9: Sepsis, un specified organism) 2. Pneumonia (J18.9: Pneumonia, unspecified organism) 3. Hyperglycemia (R73.9: Hyperglycemia, unspecified) 4. Hypoxia (R09.02: Hypoxemia) Orders: acetaminophen, 975 mg = 3 tab(s), Tab, Oral, Once, Stop date 08/09/22 17:13:00 EDT, STAT, Start date 08/09/22 17:13:00 EDT, 08/09/22 17:13:00 EDT piperacillin-tazobactam + Sodium Chloride 0.9% intravenous solution 50 mL, 3.375 gm = 1 EA, Injection, IV Piggyback, Once, Stop date 08/09/22 16:54:00 EDT, STAT, Start date 08/09/22 16:54:00 EDT, 100 mL/hr, Infuse over 30 minute(s) Sodium Chloride 0.9% intravenous solution 1,000 mL, 1,000 mL, IV, 2880, STAT, Start date 08/09/22 16:40:00 EDT, Total volume (mL): 1,000, 96 kg, 2.16, m2 vancomycin + Generic Diluent 400 mL, 2,000 mg = 400 mL, Soln-IV, IV Piggyback, Once, Stop date 08/09/22 17:00:00 EDT, Start date 08/09/22 17:00:00 EDT, 200 mL/hr, Infuse over 2 hour(s) Automated Diff B-Type Natriuretic Peptide Basic Metabolic Panel Blood Culture Charcoal Blood Culture Charcoal Blood Gas Art, with Lytes, Gluc, Lact CBC w/ Auto Diff eGFR Extra SST Tube Lactic Acid Lactic Acid PT & PTT Troponin 0 Hr. Troponin 3 Hr. Troponin 6 Hr. Troponin 9 Hr. XR Chest Single View Future Appointments Appointment Date:08/15/2022 11:45:00 AM Scheduled Provider:Zenon Santiago DPM [facility] Appointment Type: Follow Up Visit (FT) [facility]06-[facility]23 Hospital Discharge instructions Patient Education 08/11/2022 10:05:31 Hyperglycemia Hyperglycemia Hyperglycemia occurs when the level of sugar (glucose) in the blood is too high. Glucose is a type of sugar that provides the body's main source of energy. Certain hormones (insulin and glucagon) control the level of glucose in the blood. Insulin lowers blood glucose, and glucagon increases blood glucose. Hyperglycemia can result from not having enough insulin in the bloodstream, or from the bodynot responding normally to insulin. Hyperglycemia occurs most often in people who have diabetes (diabetes mellitus), but it can happen in people who do not have diabetes. It can develop quickly, and it can be life-threatening if it causes you to become severely dehydrated (diabetic ketoacidosis or hyperglycemic hyperosmolar state). Severe hyperglycemia is a medical emergency. For most people with diabetes, a blood glucose level above 240 mg/dL is considered hyperglycemia. What are the causes? If you have diabetes, hyperglycemia may be caused by: Medicines that increase blood glucose or affect your diabetes control. Getting less physical activity. Eating more than planned. Being sick or injured, having an infection, or having surgery. Stress. Not giving yourself enough insulin (if you are taking insulin). If you have undiagnosed diabetes, this may be the reason you have hyperglycemia. If you do not have diabetes, hyperglycemia may be caused by: Certain medicines, including: ?Steroid medicines. ?Beta-blockers. ?Epinephrine. ?Thiazide diuretics. Stress. Having a serious illness, an infection, or surgery. Diseases of the pancreas. What increases the risk? Hyperglycemia is more likely to develop in people who have risk factors for diabetes, such as: Having a family member with diabetes. Certain conditions in which the body's disease-fighting system (immune system) attacks itself (autoimmune disorders). Being overweight or obese. Having an inactive (sedentary) lifestyle. Having been diagnosed with insulin resistance. Having a history of prediabetes, gestational diabetes, or polycystic ovarian syndrome (PCOS). What are the signs or symptoms? Hyperglycemia may not cause any symptoms. If you do have symptoms, they may include: Increased thirst. Needing to urinate more often than usual. Hunger. Feeling very tired. Blurry vision. Other symptoms may develop if hyperglycemia gets worse, such as: Dry mouth. Abdominal pain. Loss of appetite. Fruity-smelling breath. Weakness. Unexpected weight loss. Tingling or numbness in the hands or feet. Headache. Cuts or bruises that are slow to heal. How is this diagnosed? Hyperglycemia is diagnosed with a blood test to measure your blood glucose level. This blood test is usually done while you are having symptoms. Your health care provider may also do a physical exam and review your medical history. You may have more tests to determine the cause of your hyperglycemia, such as: A fasting blood glucose (FBG) test. You will not be allowed to eat (you will fast) for at least 8 hours before a blood sample is taken. An A1C blood test. This provides information about blood glucose control over the previous 2 3 months. An oral glucose tolerance test (OGTT). This measures your blood glucose at two times: ?After fasting. This is your baseline blood glucose level. ?2 hours after drinking a beverage that contains glucose. How is this treated? Treatment depends on the cause of your hyperglycemia. Treatment may include: Taking medicine to regulate your blood glucose levels. If you take insulin or other diabetes medicines, your medicine or dosage may be adjusted. Lifestyle changes, such as exercising more, eating healthier foods, or losing weight. Treating an illness or infection. Checking your blood glucose more often. Stopping or reducing steroid medicines. If your hyperglycemia becomes severe and it results in diabetic ketoacidosis or hyperglycemic hyperosmolar state, you must be hospitalized and given IV fluids and IV insulin. Follow these instructions at home: General instructions Take spsd-qxz-pfzmqrm and prescription medicines only as told by your health care provider. Do not use any products that contain nicotine or tobacco. These products include cigarettes, chewing tobacco, and vaping devices, such as e-cigarettes. If you need help quitting, ask your health careprovider. If you drink alcohol: ?Limit how much you have to: ?0 1 drink a day for women who are not . ?0 2 drinks a day for men. ?Know how much alcohol is in a drink. In the [place] one drink equals one 12 oz bottle of beer (355 mL), one 5 oz glass of wine (148 mL), or one 1 oz glass of hard liquor (44 mL). Learn to manage stress. If you need help with this, ask your health care provider. Do exercises as told by your health care provider. Keep all follow-up visits. This is important. Eating and drinking Maintain a healthy weight. Stay hydrated, especially when you exercise, get sick, or spend time in hot temperatures. Drink enough fluid to keep your urine pale yellow. If you have diabetes: Know the symptoms of hyperglycemia. Follow your diabetes management plan as told by your health care provider. Make sure you: ?Take your insulin and medicines as told. ?Follow your exercise plan. ?Follow your meal plan. Eat on time, and do not skip meals. ?Check your blood glucose as often as told. Make sure to check your blood glucose before and after exercise. If you exercise longer or in a different way, check your blood glucose more often. ?Follow your sick day plan whenever you cannot eat or drink normally. Make this plan in advance with your health care provider. Share your diabetes management plan with people in your workplace, school, and household. Check your urine for ketones when you are ill and as told by your health care provider. Carry a medical alert card or wear medical alert jewelry. Where to find more information [place] [employer]: www.diabetes.org Contact a health care provider if: Your blood glucose is at or above 240 mg/dL (13.3 mmol/L) for 2 days in a row. You have problems keeping your blood glucose in your target range. You have frequent episodes of hyperglycemia. You have signs of illness, such as nausea, vomiting, or fever. Get help right away if: Your blood glucose monitor reads high even when you are taking insulin. You have trouble breathing. You have a change in how you think, feel, or act (mental status). You have nausea or vomiting that does not go away. These symptoms may represent a serious problem that is an emergency. Do not wait to see if the symptoms will go away. Get medical help right away. Call your local emergency services (911 in the [place] Do not drive yourself to the hospital. Summary Hyperglycemia occurs when the level of sugar (glucose) in the blood is too high. Hyperglycemia can happen with or without diabetes, and severe hyperglycemia can be life-threatening. Hyperglycemia is diagnosed with a blood test to measure your blood glucose level. This blood test is usually done while you are having symptoms. Your health care provider may also do a physical exam and review your medical history. If you have diabetes, follow your diabetes management plan as told by your health care provider. Contact your health care provider if you have problems keeping your blood glucose in your target range. This information is not intended to replace advice given to you by your health care provider. Make sure you discuss any questions you have with your health care provider. Document Revised: 12/09/2020 Document Reviewed: 12/09/2020 [employer] Patient Education 2022 [employer]. 08/11/2022 10:05:28 Blood Glucose Monitoring, Adult Blood Glucose Monitoring, Adult Monitoring your blood sugar (glucose) is an important part of managing your diabetes. Blood glucosemonitoring involves checking your blood glucose as often as directed and keeping a log or record ofyour results over time. Checking your blood glucose regularly and keeping a blood glucose log can: Help you and your health care provider adjust your diabetes management plan as needed, including your medicines or insulin. Help you understand how food, exercise, illnesses, and medicines affect your blood glucose. Let you know what your blood glucose is at any time. You can quickly find out if you have low bloodglucose (hypoglycemia) or high blood glucose (hyperglycemia). Your health care provider will set individualized treatment goals for you. Your goals will be basedon your age, other medical conditions you have, and how you respond to diabetes treatment. Generally, the goal of treatment is to maintain the following blood glucose levels: Before meals (preprandial): 80 130 mg/dL (4.4 7.2 mmol/L). After meals (postprandial): below 180 mg/dL (10 mmol/L). A1C level: less than 7%. Supplies needed: Blood glucose meter. Test strips for your meter. Each meter has its own strips. You must use the strips that came with your meter. A needle to prick your finger (lancet). Do not use a lancet more than one time. A device that holds the lancet (lancing device). A journal or log book to write down your results. How to check your blood glucose Checking your blood glucose 1.Wash your hands for at least 20 seconds with soap and water. 2.Prick the side of your finger (not the tip) with the lancet. Do not use the same finger consecutively. 3.Gently rub the finger until a small drop of blood appears. 4.Follow instructions that come with your meter for inserting the test strip, applying blood to thestrip, and using your blood glucose meter. 5.Write down your result and any notes in your log. Using alternative sites Some meters allow you to use areas of your body other than your finger (alternative sites) to test your blood. The most common alternative sites are the forearm, the thigh, and the palm of your hand. Alternative sites may not be as accurate as the fingers because blood flow is slower in those areas. This means that the result you get may be delayed, and it may be different from the result that you would get from your finger. Use the finger only, and do not use alternative sites, if: You think you have hypoglycemia. You sometimes do not know that your blood glucose is getting low (hypoglycemia unawareness). General tips and recommendations Blood glucose log Every time you check your blood glucose, write down your result. Also write down any notes about things that may be affecting your blood glucose, such as your diet and exercise for the day. This information can help you and your health care provider: ?Look for patterns in your blood glucose over time. ?Adjust your diabetes management plan as needed. Check if your meter allows you to download your records to a computer or if there is an frankie for [employer]. Most glucose meters store a record of glucose readings in the meter. If you have type 1 diabetes: Check your blood glucose 4 or more times a day if you are on intensive insulin therapy with multiple daily injections (MDI) or if you are using an insulin pump. Check your blood glucose: ?Before every meal and snack. ?Before bedtime. Also check your blood glucose: ?If you have symptoms of hypoglycemia. ?After treating low blood glucose. ?Before doing activities that create a risk for injury, like driving or using machinery. ?Before and after exercise. ?Two hours after a meal. ?Occasionally between 2:00 a.m. and 3:00 a.m., as directed. You may need to check your blood glucose more often, 6 10 times per day, if: ?You have diabetes that is not well controlled. ?You are ill. ?You have a history of severe hypoglycemia. ?You have hypoglycemia unawareness. If you have type 2 diabetes: Check your blood glucose 2 or more times a day if you take insulin or other diabetes medicines. Check your blood glucose 4 or more times a day if you are on intensive insulin therapy. Occasionally, you may also need to check your glucose between 2:00 a.m. and 3:00 a.m., as directed. Also check your blood glucose: ?Before and after exercise. ?Before doing activities that create a risk for injury, like driving or using machinery. You may need to check your blood glucose more often if: ?Your medicine is being adjusted. ?Your diabetes is not well controlled. ?You are ill. General tips Make sure you always have your supplies with you. After you use a few boxes of test strips, adjust (calibrate) your blood glucose meter by following instructions that came with your meter. If you have questions or need help, all blood glucose meters have a 24-hour hotline phone number available that you can call. Also contact your health care provider with questions or concerns you mayhave. Where to find more information [employer] [place] [employer]: www.diabetes.org The [employer]: www.diabeteseducator.org Contact a health care provider if: Your blood glucose is at or above 240 mg/dL (13.3 mmol/L) for 2 days in a row. You have been sick or have had a fever for 2 days or longer, and you are not getting better. You have any of the following problems for more than 6 hours: ?You cannot eat or drink. ?You have nausea or vomiting. ?You have diarrhea. Get help right away if: Your blood glucose is lower than 54 mg/dL (3 mmol/L). You become confused, or you have trouble thinking clearly. You have difficulty breathing. You have moderate or large ketone levels in your urine. These symptoms may represent a serious problem that is an emergency. Do not wait to see if the symptoms will go away. Get medical help right away. Call your local emergency services (911 in the [place] Do not drive yourself to the hospital. Summary Monitoring your blood glucose is an important part of managing your diabetes. Blood glucose monitoring involves checking your blood glucose as often as directed and keeping a log or record of your results over time. Your health care provider will set individualized treatment goals for you. Your goals will be basedon your age, other medical conditions you have, and how you respond to diabetes treatment. Every time you check your blood glucose, write down your result. Also, write down any notes about things that may be affecting your blood glucose, such as your diet and exercise for the day. This information is not intended to replace advice given to you by your health care provider. Make sure you discuss any questions you have with your health care provider. Document Revised: 11/23/2020 Document Reviewed: 11/23/2020 [employer] Patient Education 2022 [employer]. 08/11/2022 10:05:26 Community-Acquired Pneumonia, Adult Community-Acquired Pneumonia, Adult Pneumonia is a lung infection that causes inflammation and the buildup of mucus and fluids in the lungs. This may cause coughing and difficulty breathing. Community-acquired pneumonia is pneumonia that develops in people who are not, and have not recently been, in a hospital or other health care facility. Usually, pneumonia develops as a result of an illness that is caused by a virus, such as the commoncold and the flu (influenza). It can also be caused by bacteria or fungi. While the common cold andinfluenza can pass from person to person (are contagious), pneumonia itself is not considered contagious. What are the causes? This condition may be caused by: Viruses. Bacteria. Fungi, such as molds or mushrooms. What increases the risk? The following factors may make you more likely to develop this condition: Having certain medical conditions, such as: ?A long-term (chronic) disease, which may include chronic obstructive pulmonary disease (COPD), asthma, heart failure, cystic fibrosis, diabetes, kidney disease, sickle cell disease, and human immunodeficiency virus (HIV). ?A condition that increases the risk of breathing in (aspirating) mucus and other fluids from your mouth and nose. ?A weakened body defense system (immune system). Having had your spleen removed (splenectomy). The spleen is the organ that helps fight germs and infections. Not cleaning your teeth and gums well (poor dental hygiene). Using tobacco products. Traveling to places where germs that cause pneumonia are present. Being near certain animals, or animal habitats, that have germs that cause pneumonia. Being older than 65 years of age. What are the signs or symptoms? Symptoms of this condition include: A dry cough or a wet (productive) cough. A fever. Sweating or chills. Chest pain, especially when breathing deeply or coughing. Fast breathing, difficulty breathing, or shortness of breath. Tiredness (fatigue). Muscle aches. How is this diagnosed? This condition may be diagnosed based on your medical history or a physical exam. You may also havetests, including: Chest X-rays. Tests of the level of oxygen and other gases in your blood. Tests of: ?Your blood. ?Mucus from your lungs (sputum). ?Fluid around your lungs (pleural fluid). ?Your urine. If your pneumonia is severe, other tests may be done to learn more about the cause. How is this treated? Treatment for this condition depends on many factors, such as the cause of your pneumonia, your medicines, and other medical conditions that you have. For most adults, pneumonia may be treated at home. In some cases, treatment must happen in a hospital and may include: Medicines that are given by mouth (orally) or through an IV, including: ?Antibiotic medicines, if bacteria caused the pneumonia. ?Medicines that kill viruses (antiviral medicines), if a virus caused the pneumonia. Oxygen therapy. Severe pneumonia, although rare, may require the following treatments: Mechanical ventilation.This procedure uses a machine to help you breathe if you cannot breathe wellon your own or maintain a safe level of blood oxygen. Thoracentesis. This procedure removes any buildup of pleural fluid to help with breathing. Follow these instructions at home: Medicines Take ejtf-etf-ylkufcv and prescription medicines only as told by your health care provider. Take cough medicine only if you have trouble sleeping. Cough medicine can prevent your body from removing mucus from your lungs. If you were prescribed an antibiotic medicine, take it as told by your health care provider. Do notstop taking the antibiotic even if you start to feel better. Lifestyle Do not drink alcohol. Do not use any products that contain nicotine or tobacco, such as cigarettes, e- cigarettes, and chewing tobacco. If you need help quitting, ask your health care provider. Eat a healthy diet. This includes plenty of vegetables, fruits, whole grains, low-fat dairy products, and lean protein. General instructions Rest a lot and get at least 8 hours of sleep each night. Sleep in a partly upright position at night. Place a few pillows under your head or sleep in a reclining chair. Return to your normal activities as told by your health care provider. Ask your health care provider what activities are safe for you. Drink enough fluid to keep your urine pale yellow. This helps to thin the mucus in your lungs. If your throat is sore, gargle with a salt water mixture 3 4 times a day or as needed. To make a salt water mixture, completely dissolve 1 tsp (3 6 g) of salt in 1 cup (237 mL) of warm water. Keep all follow-up visits as told by your health care provider. This is important. How is this prevented? You can lower your risk of developing community-acquired pneumonia by: Getting the pneumonia vaccine. There are different types and schedules of pneumonia vaccines. Ask your health care provider which option is best for you. Consider getting the pneumonia vaccine if: ?You are older than 65 years of age. ?You are 19 65 years of age and are receiving cancer treatment, have chronic lung disease, or have other medical conditions that affect your immune system. Ask your health care provider if this applies to you. Getting your influenza vaccine every year. Ask your health care provider which type of vaccine is best for you. Getting regular dental checkups. Washing your hands often with soap and water for at least 20 seconds. If soap and water are not available, use hand tire retreader. Contact a health care provider if you have: A fever. Trouble sleeping because you cannot control your cough with cough medicine. Get help right away if: Your shortness of breath becomes worse. Your chest pain increases. Your sickness becomes worse, especially if you are an older adult or have a weak immune system. You cough up blood. These symptoms may represent a serious problem that is an emergency. Do not wait to see if the symptoms will go away. Get medical help right away. Call your local emergency services (911 in the [place] Do not drive yourself to the hospital. Summary Pneumonia is an infection of the lungs. Community-acquired pneumonia develops in people who have not been in the hospital. It can be causedby bacteria, viruses, or fungi. This condition may be treated with antibiotics or antiviral medicines. Severe pneumonia may require a hospital stay and treatment to help with breathing. This information is not intended to replace advice given to you by your health care provider. Make sure you discuss any questions you have with your health care provider. Document Revised: 12/08/2019 Document Reviewed: 12/08/2019 [employer] Patient Education 2022 [employer]. 08/10/2022 12:00:39 Diet - Basic Carbohydrate Counting (Custom) Carbohydrate Counting for People with Diabetes Why Is Carbohydrate Counting Important? Counting carbohydrate servings may help you to control your blood glucose level so that you feel better. The balance between the carbohydrates you eat and insulin determines what your blood glucose level will be after eating. Carbohydrate counting can also help you plan your meals. Which Foods Have Carbohydrates? Foods with carbohydrates include: ? ?reads, crackers, and cereals - Pasta, rice, and grains - Starchy vegetables, such as potatoes, corn, and peas - Beans and legumes - Milk, soy milk, and yogurt - Fruits and fruit juices - Sweets, such as cakes, cookies, ice cream, jam, and jelly Carbohydrate Servings In diabetes meal planning, 1 serving of a food with carbohydrate has about 15 grams of carbohydrate: - Check serving sizes with measuring cups and spoons or a food scale. - Read the Nutrition Facts on food labels to find out how many grams of carbohydrate are in foods you eat. - The food lists in this handout show portions that have about 15 grams of carbohydrate. Food Lists for Carbohydrate Counting 1 serving = about 15 grams of carbohydrate Starches 1 slice bread (1 ounce) 1 tortilla (6-inch size) 1/4 large bagel (1 ounce) 2 taco shells (5-inch size) 1/2 hamburger or hot dog bun (1 ounce) 3/4 cup [id number]-[id number] cereal 1/2 cup cooked cereal 1 cup broth-based soup 4-6 small crackers ? cup pasta or rice (cooked) cup beans, peas, corn, sweet potatoes, winter squash, or mashed or boiled potatoes (cooked) 1/2 large baked potato (3 ounces) ounce pretzels, potato chips, or tortilla chips 3 cups popcorn (popped) Fruit 1 small fresh fruit (4 ounces) cup canned fruit cup dried fruit (2 tablespoons) 17 small grapes (3 ounces) 1 cup melon or berries 2 tablespoons raisins or other dired fruit cup fruit juice Milk 1 cup fat-free or reduced-fat milk 1 cup soy milk ? cup (6 ounces) fat-free yogurt sweetened with sugar-free sweetener Sweets and Desserts 2-inch square cake (unfrosted) 2 small cookies (? ounce) cup ice cream or frozen yogurt cup sherbet or sorbet 1 tablespoon syrup, jam, jelly, table sugar, or honey 2 tablespoons light syrup Other Foods - Count 1 cup raw vegetables or cup cooked nonstarchy vegetables as zero carbohydrate servings or free foods. If you eat 3 or more servings at one meal, count them as 1 carbohydrate serving. - Foods that have less than 20 calories in each serving also may be counted as zero carbohydrate servings or free foods. - Count 1 cup of casserole or other mixed foods as 2 carbohydrate servings. Meal Planning Tips A meal plan tells you how many carbohydrate servings to eat at your meals and snacks. For many adults, eating 3 to 5 servings of carbohydrate foods at each meal and 1 or 2 carbohydrate servings for each snack works well. In a healthy daily meal plan, most carbohydrates come from: 5 servings of fruits and vegetables 3 servings of whole grains 2 to 4 servings of milk or milk products - Check your blood glucose level regularly. It can tell you if you need to adjust the timing of when you eat carbohydrates. - Eating foods that have fiber, such as whole grains, and having very few salty foods is good for your health. ? Eat 4 to 6 ounces of meat or other protein foods (such as soybean burgers) each day. - Choose low-fat sources of protein, such as lean beef, lean pork, chicken, fish, low-fat cheese, or vegetarian foods such as soy. ? Eat some healthy fats, such as olive oil, canola oil, and nuts. ? Eat very little saturated fats. These unhealthy fats are found in butter, cream, and high-fat meats, such as riley and sausage. ? Eat very little or no trans fats. These unhealthy fats are found in all foods that list partially hydrogenated oil as an ingredient. Label Reading Tips The Nutrition Facts panel on a label lists the grams of total carbohydrate in 1 standard serving. The label s standard serving may be larger or smaller than 1 carbohydrate serving. To figure out how many carbohydrate servings are in the food: Look first at the label s standard serving size. Then check the grams of total carbohydrate. This is the amount of carbohydrate in 1standard serving. Divide the grams of total carbohydrate by 15. This number equals the number of carbohydrate servings in 1 standard serving. Remember: 1 carbohydrate serving is 15 grams of carbohydrate. Note: You may ignore the grams of sugars on the Nutrition Facts panel because they are included in the grams of total carbohydrate. Sample 1-Day Menu Total Carbohydrate Servings: 15 Breakfast: 1 small banana (1 carbohydrate serving) cup corn flakes (1 carbohydrate serving) 1 cup fat-free or low-fat milk (1 carbohydrate serving) 1 slice whole wheat bread (1 carbohydrate serving) 1 teaspoon soft margarine Lunch:2 ounces lean meat (for sandwich) 2 slices whole wheat bread (2 carbohydrate servings) Raw vegetables: 3-4 carrot sticks, 3-4 celery sticks, 2 lettuce leaves 1 cup fat-free or low-fat milk (1 carbohydrate serving) 1 small apple (1 carbohydrate serving) Snack: cup canned apricots (1 carbohydrate serving) ounce unsalted mini-pretzels (1 carbohydrate serving) Supper: 3 ounces lean roast beef large baked potato (2 carbohydrate servings) 1 tablespoon reduced-fat sour cream cup green beans 1 vegetable salad: lettuce, cup raw vegetables, and 1 tablespoon light salad dressing 1 small whole wheat dinner roll (1 carbohydrate serving) 1 teaspoon soft margarine 1 cup melon balls (1 carbohydrate serving) Snack:6 ounces low-fat fruit yogurt with sugar-free sweetener (1carbohydrate serving) 2 tablespoons unsalted nuts Follow Up Care 08/09/2022 14:57:30 With:SARA LESTER DO Address: [address] [place], [place] [address] [place] [address]- When:08/21/2022 10:00:00 With:[facility]: [facility] [phone] Address:Unknown When:08/15/2022 11:45:00 Comments:Appointment has already been scheduledKeep scheduled appointment [facility]04-22-2023 Hospital course Narrative* Kiet Farah MD - 06/30/2022 7:55 AM EDT Images from the original note were not included. Hospitalist Discharge Summary Patient: Jillian Little Date of : 1960 Acct: [id number] Primary Care Physician: Sara Lester DO Admit date: 06/26/2022 Discharge date: 06/30/2022 Discharge Diagnoses: 1.Osteomyelitis of great toe of left foot (HCC) 2. Left foot cellulitis 3. Diabetes mellitus type 2, insulin-dependent, uncontrolled 4. Severe neuropathy due to diabetes 5. History of COPD 6. Restless leg syndrome 7. Probable CKD 8. Chronic anemia 9. History of depression Discharge Medications: Medication List START taking these medications doxycycline hyclate 100 MG capsule Commonly known as: VIBRAMYCIN Take 1 capsule by mouth 2 times daily for 7 days levoFLOXacin 500 MG tablet Commonly known as: Levaquin Take 1 tablet by mouth daily for 10 days multivitamin Tabs tablet Take 1 tablet by mouth daily CONTINUE taking these medications amitriptyline 25 MG tablet Commonly known as: ELAVIL TAKE 1 TABLET BY MOUTH NIGHTLY atorvastatin 40 MG tablet Commonly known as: LIPITOR TAKE 1 TABLET BY MOUTH EVERY DAY. budesonide-formoterol 160-4.5 MCG/ACT Aero Commonly known as: Symbicort INHALE 2 PUFFS into the lungs TWICE DAILY buPROPion 150 MG extended release tablet Commonly known as: WELLBUTRIN XL TAKE 1 TABLET BY MOUTH EVERY DAY IN THE MORNING. Drug Turin Unifine Pentips 31G X 5 MM Misc Generic drug: Insulin Pen Needle use to inject TWICE DAILY DULoxetine 60 MG extended release capsule Commonly known as: CYMBALTA TAKE 1 CAPSULE BY MOUTH EVERY DAY. ipratropium-albuterol 0.5-2.5 (3) MG/3ML Soln nebulizer solution Commonly known as: DUONEB Inhale 3 mLs into the lungs every 4 hours as needed for Shortness of Breath [id number] 3-90.314-2-35 MG Caps capsule Take 1 capsule by mouth daily lactobacillus capsule Take 1 capsule by mouth 2 times daily (with meals) Lancets Misc 1 each by Does not apply route 3 times daily meloxicam 7.5 MG tablet Commonly known as: MOBIC Take 1 tablet by mouth daily as needed for Pain metFORMIN 1000 MG tablet Commonly known as: GLUCOPHAGE TAKE 1 TABLET BY MOUTH TWICE DAILY WITH MEALS Nebulizer/Tubing/Mouthpiece Kit 1 kit by Does not apply route daily as needed (SOB) Adult mask please NovoLOG FlexPen 100 UNIT/ML injection pen Generic drug: insulin aspart inject 15 units into the skin 3 (THREE) times a day before meals omeprazole 40 MG delayed release capsule Commonly known as: PRILOSEC TAKE 1 CAPSULE BY MOUTH TWICE DAILY. pregabalin 75 MG capsule Commonly known as: LYRICA TAKE 1 CAPSULE BY MOUTH THREE TIMES DAILY. rOPINIRole 1 MG tablet Commonly known as: REQUIP TAKE 3 TABLETS BY MOUTH NIGHTLY. sildenafil 20 MG tablet Commonly known as: REVATIO 3-5 tabs po daily prn Spiriva HandiHaler 18 MCG inhalation capsule Generic drug: tiotropium Inhale 1 (ONE) CAPSULES into the lungs DAILY Tresiba FlexTouch 200 UNIT/ML Sopn Generic drug: Insulin Degludec INJECT 100 UNITS under the skin once DAILY. * True Metrix Air Glucose Meter Eddie Use to test sugar TID and PRN * True Metrix Meter w/Device Kit True Metrix Blood Glucose Test strip Generic drug: blood glucose test strips Use to test sugar BID Trulicity 1.5 MG/0.5ML SC injection Generic drug: dulaglutide INJECT 1.5mg under the skin once a week. Ventolin HFA 108 (90 Base) MCG/ACT inhaler Generic drug: albuterol sulfate HFA INHALE 2 PUFFS BY MOUTH EVERY 4 HOURS NEEDED FOR WHEEZING. * This list has 2 medication(s) that are the same as other medications prescribed for you. Read thedirections carefully, and ask your doctor or other care provider to review them with you. STOP taking these medications amoxicillin-clavulanate 875-125 MG per tablet Commonly known as: Augmentin clindamycin 300 MG capsule Commonly known as: CLEOCIN lisinopril-hydroCHLOROthiazide 20-25 MG per tablet Commonly known as: PRINZIDE;ZESTORETIC silver sulfADIAZINE 1 % cream Commonly known as: SILVADENE Where to Get Your Medications These medications were sent to [facility] # - [place], [place] - [address] [place] [address] - F [phone] [address] [facility] [address] doxycycline hyclate 100 MG capsule levoFLOXacin 500 MG tablet multivitamin Tabs tablet Diet: ADULT DIET; Regular; 4 carb choices (60 gm/meal) ADULT ORAL NUTRITION SUPPLEMENT; Breakfast, Dinner; Wound Healing Oral Supplement ADULT ORAL NUTRITION SUPPLEMENT; Lunch; Diabetic Oral Supplement Activity: Up ad louise (Patient can move independently) Follow-up: in 1-2 weeks with Sara Lester DO, follow-up with your product safety expert Dr. Santiago coming Saturday Consultants: Podiatry Dr. Peace Procedures: None Diagnostic Test: CBC: No results for input(s): WBC, HGB, PLT in the last 72 hours. BMP: Recent Labs 06/30/22 0453 NA 137 K 4.5 CL 102 CO2 27 BUN 14 CREATININE 1.09 GLUCOSE 224* Calcium: Recent Labs 06/30/22 0453 CALCIUM 9.3 Physical Exam: Vitals:Patient Vitals for the past 24 hrs: BP Temp Temp src Pulse Resp SpO2 Weight 06/30/22 0615 107/60 98.7 F (37.1 C) Oral 95 16 92 % -- 06/30/22 0600 -- -- -- -- -- -- 211 lb 3.2 oz (95.8 kg) 06/29/22 2136 -- -- -- 96 18 96 % -- 06/29/22 1945 119/70 98.2 F (36.8 C) Oral 100 18 -- -- 06/29/22 1500 110/66 98.2 F (36.8 C) Oral 95 16 92 % -- 06/29/22 1100 (!) 117/56 98 F (36.7 C) Oral 99 16 94 % 213 lb 4 oz (96.7 kg) 06/29/22 0934 -- -- -- -- -- 95 % -- Weight: Weight: 211 lb 3.2 oz (95.8 kg) General Appearance: alert and oriented to person, place and time, in no acute distress Cardiovascular: normal rate, regular rhythm, normal S1 and S2, no murmurs, rubs, clicks, or gallops, distal pulses intact, Pulmonary/Chest: clear to auscultation bilaterally- no wheezes, rales or rhonchi, normal air movement, no respiratory distress Abdomen: soft, non-tender, non-distended, normal bowel sounds Extremities: Left great toe and foot dressed, mild swelling, right foot with no edema, missing third and fifth toes due to previous amputations Skin: warm and dry, no rash Neurological: alert, oriented, normal speech, no focal findings or movement disorder noted Hospital Course: The patient is a 62 y.o. male with history of uncontrolled diabetes due to noncompliance, severe neuropathy, hypertension, bilateral feet diabetic ulcers/osteomyelitis, presented to the emergency room complaining of worsening redness, swelling of the left lower extremity with associated left great toe chronic diabetic ulcer with increased drainage. Patient has been following up with [facility] and product safety expert Dr. Santiago for chronic diabetic ulcer. Despite treatments he developed worsening of the infection. He reports minimal pain in his foot due to underlying severe neuropathy. He had noassociated fevers or chills. He came to the emergency room on 06/21 for worsening infection of the left great toe. Was treated with IV Unasyn and discharged home with Augmentin and Cleocin. Apparentlyhis product safety expert was on vacation and he was unable to follow-up. Due to worsening infection had to come back to ER again yesterday. He was noted to have worsening redness and swelling despite taking oral antibiotics and deemed appropriate for admission for IV antibiotics. Work-up in ER revealed stable vitals. He was afebrile. Labs revealed sodium 131, potassium 4.4, chloride 94, CO2 23, BUN 15, creatinine 1.43, random glucose was 560. WBC was 6.0, H&H 10.4/31.0. X-ray of the left foot revealed: 1.8 mm area rarefaction in the medial articular aspect proximal portion of the distal phalanx great toe with associated skin ulcer and soft tissue swelling is more suspicious for osteomyelitis than previously. 2. No gas in the soft tissues. Patient had no evidence of DKA. Apparently did not take his insulin before coming to ER. Due to worsening infection in his left great toe/foot and failure of outpatient oral antibiotics he was deemedappropriate for admission for IV antibiotics and podiatry evaluation. Patient was started on IV cefepime and vancomycin empirically. We consulted podiatry who provided wound care and recommended to continue on IV antibiotics and follow-up outpatient with his product safety expert Dr. Santiago. Patient's wound culture came back positive for mixed bacterial morphotypes andSerratia marcescens moderate growth. Patient will be discharged with Levaquin and doxycycline course. He is to follow-up with his product safety expert Dr. Santiago and has an appointment on Sunday 07/02. He is encouraged to be more compliant with his insulin therapy. Disposition: home Condition: Stable Time Spent: 34 minutes Discharging Hospitalist [facility] Work Phone: [phone]) 983-341804-21-2023 History of Present illness Narrative* Stella Soares RD, LD - 06/29/2022 9:39 AM EDT Nutrition Note Pt declined offer of CC diabetic diet education. Contact: [phone] * Briana Rust RCP - 06/29/2022 9:34 AM EDT Hearing Dog Trainer explained to patient the Dr. Santiago office is requesting him to get an EKG prior to his surgery next week. Explained to patient we would be able to do it for him on Saturday after discharge before he leaves if he wishes to do so. Patient made aware to let a staff member know if he decides to do so. * Matt Maddox RN - 06/29/2022 9:27 AM EDT Called [facility] and spoke with Karlos to clarify pt f/u appt with Dr. Santiago. Only appt pt hasis on July 03 @ 3:45pm. * DIANA Harris - 06/29/2022 9:25 AM EDT Acknowledge pt potential discharge to home tomorrow. Pt with all needed DME at home and girlfriend to assist with dressing changes until follow up with [facility]. Yulisa SIERRA HIMS MANAGER 06/29/2022 * Stella Soares RD, LD - 06/29/2022 9:00 AM EDT Comprehensive Nutrition Assessment Type and Reason for Visit: Reassess Nutrition Recommendations/Plan: Continue current diet. Continue current supplements for wound healing. Continue daily MVI. 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 Continued altered nutrition related lab aeb glucose 220 this morning, range has been 165-306 since yesterday. No new weight, daily weights started. MVI started for healing needs. On probiotic. Pt reports taking the supplements for woundhealing. Denied any PO changes. Pt states he does not typically eat 3 meals per day. Pt encouraged to consume 3 meals per day with protein at every meal and snack. Pt states he moves around a lot when asked about PA. Pt encouraged to have 150 minutes of PA weekly to aid DM. Pt to see [facility] doctor[facility] Saturday, possible R great toe amputation per EMR. Nutrition Related Findings: appears well nourished Wound Type: Diabetic Ulcer Current Nutrition Intake & Therapies: Average Meal Intake: 76-100% Average Supplements Intake: 76-100% ADULT DIET; Regular; 4 carb choices (60 gm/meal) ADULT ORAL NUTRITION SUPPLEMENT; Breakfast, Dinner; Wound Healing Oral Supplement ADULT ORAL NUTRITION SUPPLEMENT; Lunch; Diabetic Oral Supplement Anthropometric Measures: Height: 5' 9 (175.3 cm) Redford Body Weight (IBW): 160 lbs (73 kg) Admission Body Weight: 208 lb (94.3 kg) Current Body Weight: 208 lb (94.3 kg), 130 % IBW. Weight Source: Bed Scale Current BMI (kg/m2): 30.7 Usual Body Weight: 216 lb (98 kg) % Weight Change (Calculated): -3.7 Weight Adjustment For: No Adjustment BMI Categories: Obese Class 1 (BMI 30.0-34.9) Estimated Daily Nutrient Needs: Energy Requirements Based On: Kcal/kg Weight Used for Energy Requirements: Current Energy (kcal/day): 5201-2311 (20-23/kg) Weight Used for Protein Requirements: Redford Protein (g/day): 95-117g (1.3-1.6g/kg) Method Used for Fluid Requirements: 1 ml/kcal Fluid (ml/day): 2,200 ml Recent Labs 06/27/22 1151 06/27/22 1659 06/27/22202306/28/22 0746 06/28/22 1155 06/28/22 1718 06/28/22 20506/29/22 0745 POCGLU 217* 184* 211* 306* 209* 331* 375* 165* Recent Labs 06/26/22 1415 06/27/22 0345 06/28/22 0450 06/29/22 0457 NA 131* 137 137 140 K 4.4 4.5 4.5 4.3 CL 94* 102 103 105 CO2 23 25 25 27 BUN 15 14 15 14 CREATININE 1.43* 1.31* 1.09 1.05 GLUCOSE 560* 290* 320* 220* ALT 17 -- -- -- ALKPHOS 129 -- -- -- Lab Results Component Value Date/Time LABALBU 3.7 06/26/2022 02:15 PM Nutrition Diagnosis: Increased nutrient needs related to acute injury/trauma as evidenced by wounds Altered nutrition-related lab values related to endocrine dysfuntion as evidenced by lab values Nutrition Interventions: Food and/or Nutrient Delivery: Continue Current Diet, Continue Oral Nutrition Supplement, Vitamin Supplement Nutrition Education/Counseling: Education needed, Education initiated Coordination of Nutrition Care: Continue to monitor while inpatient Plan of Care discussed with: Patient Goals: Previous Goal Met: Progressing toward Goal(s) Goals: Meet at least 75% of estimated needs Nutrition Monitoring and Evaluation: Behavioral-Environmental Outcomes: Readiness for Change Food/Nutrient Intake Outcomes: Food and Nutrient Intake, Supplement Intake Physical Signs/Symptoms Outcomes: Biochemical Data, Weight, Skin, Fluid Status or Edema Discharge Planning: Continue Oral Nutrition Supplement, Continue current diet STELLA SOARES RD, [place]NE MARIE Contact: [phone] * Kiet Farah MD - 06/29/2022 8:32 AM EDT Hospitalist Progress Note 06/29/2022 8:32 AM Subjective: Admit Date: 06/26/2022 PCP: Sara Lester DO Interval History: Patient has no complaints this morning. He states that the pain in his foot resolved. His appetitesbeen good. Has no nausea, vomiting, no diarrhea Diet: ADULT DIET; Regular; 4 carb choices (60 gm/meal) ADULT ORAL NUTRITION SUPPLEMENT; Breakfast, Dinner; Wound Healing Oral Supplement ADULT ORAL NUTRITION SUPPLEMENT; Lunch; Diabetic Oral Supplement Medications: Scheduled Meds: vancomycin 1,250 mg IntraVENous Q12H multivitamin 1 tablet Oral Daily insulin glargine 45 Units SubCUTAneous BID cefepime (MAXIPIME) 2000 mg in NS 50 mL IVPB (mini-bag) 2,000 mg IntraVENous 3 times per day amitriptyline 25 mg Oral Nightly atorvastatin 40 mg Oral Daily mometasone-formoterol 2 puff Inhalation BID buPROPion 150 mg Oral QAM DULoxetine 60 mg Oral Daily H-[id number]-[id number] 1 capsule Oral Daily lactobacillus 1 capsule Oral BID WC metFORMIN 1,000 mg Oral BID WC insulin lispro 15 Units SubCUTAneous TID WC pantoprazole 40 mg Oral QAM AC pregabalin 75 mg Oral TID rOPINIRole 3 mg Oral Nightly dulaglutide 1.5 mg SubCUTAneous Weekly sodium chloride flush 5-40 mL IntraVENous 2 times per day enoxaparin 40 mg SubCUTAneous Daily insulin lispro 0-16 Units SubCUTAneous TID WC insulin lispro 0-4 Units SubCUTAneous Nightly vancomycin (VANCOCIN) intermittent dosing (placeholder) Other RX Placeholder Continuous Infusions: sodium chloride Stopped (06/28/22 1718) dextrose PRN Medications: ipratropium-albuterol, sodium chloride flush, sodium chloride, ondansetron OR ondansetron, polyethylene glycol, acetaminophen OR acetaminophen, glucose, dextrose bolus ORdextrose bolus, glucagon (rDNA), dextrose Objective: Vitals: BP 111/75 Pulse 89 Temp 97.8 F (36.6 C) (Oral) Resp 16 Ht 5' 9 (1.753 m) Wt 208 lb (94.3 kg) SpO2 93% BMI 30.72 kg/m BMI: Body mass index is 30.72 kg/m . CBC: Recent Labs 06/26/22 1415 06/27/22 0345 WBC 8.8 6.0 HGB 10.7* 10.4* PLT 350 334 BMP: Recent Labs 06/27/22 0345 06/28/22 0450 06/29/22 0457 NA 137 137 140 K 4.5 4.5 4.3 CL 102 103 105 CO2 25 25 27 BUN 14 15 14 CREATININE 1.31* 1.09 1.05 GLUCOSE 290* 320* 220* Hepatic: Recent Labs 06/26/22 1415 AST 21 ALT 17 BILITOT 0.6 ALKPHOS 129 Physical Exam: General Appearance: alert and oriented to person, place and time, in no acute distress Cardiovascular: normal rate, regular rhythm, normal S1 and S2, no murmurs, rubs, clicks, or gallops, distal pulses intact, Pulmonary/Chest: clear to auscultation bilaterally- no wheezes, rales or rhonchi, normal air movement, no respiratory distress Abdomen: soft, non-tender, non-distended, normal bowel sounds Extremities: Left great toe and foot dressed, mild swelling, right foot with no edema, missing third and fifth toes due to previous amputations Skin: warm and dry, no rash Neurological: alert, oriented, normal speech, no focal findings or movement disorder noted Medical Decision Making (MDM) Data: External documents reviewed: My CXR interpretation: My EKG interpretation: Discussed with: ER physician Dr. Harrison and podiatry Tests considered but not ordered: Heart score: Social Determinants of Health that impact treatment or disposition: Assessment and Plan 1. Left great toe possible osteomyelitis, left foot cellulitis -continue on IV vancomycin and cefepime. Consulted podiatry , help greatly appreciated. Recommends to treat with IV antibioticsfor 1 or 2 more days and change to p.o. on discharge with further recommendation to follow-up with [facility] wound [facility] and his product safety expert Dr. Santiago 2. Diabetes mellitus type 2, uncontrolled, insulin-dependent - patient historically noncompliant with his insulin therapy. Glucose level was critically elevated 560 on admission. No evidence of DKA. Resumed Lantus 40 units twice daily, sliding scale insulin, Trulicity, metformin, hyperglycemia improved. 3. 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 History of COPD - no symptoms of COPD, continue on Dulera 5. Restless leg syndrome - on Requip 6. History of depression -mood is stable on Wellbutrin and Cymbalta 7. Probable CKD 8. Chronic anemia Differential Diagnosis: Left great toe diabetic ulcer/cellulitis, osteomyelitis Condition is improving / unchanged / worsening: Improving Condition is a treatment goal: No Chronic condition is / is not having mild / moderate, severe exacerbation, progression or side effects of treatment: Shared decision making: Code status and discussions: Full code Medical Necessity: Inpatient is appropriate for this patient due to need for IV antibiotics, podiatry consultation, wound care Estimated length of stay: 2 days. The beneficiary may reasonably be expected to be discharged or transferred to a hospital within 96 hours after admission. Kiet Farah MD, MD Rounding Hospitalist * Festus Peace DPM - 06/29/2022 8:16 AM EDT Podiatry Progress Note SUBJECTIVE feeling good, no pain complaints, including GI OBJECTIVE Physical VITALS: BP 111/75 Pulse 89 Temp 97.8 F (36.6 C) (Oral) Resp 16 Ht 5' 9 (1.753 m) Wt 208 lb (94.3 kg) SpO2 93% BMI 30.72 kg/m CONSTITUTIONAL: awake, alert, cooperative, no apparent distress, and appears stated age EXTREMITY: rt foot stable. Left with receded cellulitis from foot. Local around wound margins and sub q fat necrosis and exposed DP base with purulence/ odor. Good refill to toe Data CBC with Differential: Lab Results Component Value Date/Time WBC 6.0 06/27/2022 03:45 AM RBC 3.40 06/27/2022 03:45 AM HGB 10.4 06/27/2022 03:45 AM HCT 31.0 06/27/2022 03:45 AM PLT 334 06/27/2022 03:45 AM MCV 91.0 06/27/2022 03:45 AM MCH 30.6 06/27/2022 03:45 AM MCHC 33.7 06/27/2022 03:45 AM RDW 13.9 06/27/2022 03:45 AM LYMPHOPCT 34 06/27/2022 03:45 AM MONOPCT 8 06/27/2022 03:45 AM BASOPCT 0 06/27/2022 03:45 AM MONOSABS 0.50 06/27/2022 03:45 AM LYMPHSABS 2.00 06/27/2022 03:45 AM EOSABS 0.20 06/27/2022 03:45 AM BASOSABS 0.00 06/27/2022 03:45 AM DIFFTYPE YES 06/27/2022 03:45 AM BMP: Lab Results Component Value Date/Time NA 140 06/29/2022 04:57 AM K 4.3 06/29/2022 04:57 AM CL 105 06/29/2022 04:57 AM CO2 27 06/29/2022 04:57 AM BUN 14 06/29/2022 04:57 AM LABALBU 3.7 06/26/2022 02:15 PM CREATININE 1.05 06/29/2022 04:57 AM CALCIUM 9.1 06/29/2022 04:57 AM GFRAA >60 11/17/2021 06:43 AM LABGLOM >60 06/29/2022 04:57 AM GLUCOSE 220 06/29/2022 04:57 AM Wound Culture: gram neg rods -- results prelim and not final Radiology Review: prob osteo aorund IPJ gr toe Current Inpatient Medications Current Facility-Administered Medications: vancomycin (VANCOCIN) 1,250 mg in sodium chloride 0.9 % 250 mL IVPB, 1,250 mg, IntraVENous, Q12H insulin glargine (LANTUS) injection vial 45 Units, 45 Units, SubCUTAneous, BID cefepime (MAXIPIME) 2,000 mg in sodium chloride 0.9 % 50 mL IVPB (mini-bag), 2,000 mg, IntraVENous,3 times per day amitriptyline (ELAVIL) tablet 25 mg, 25 mg, Oral, Nightly atorvastatin (LIPITOR) tablet 40 mg, 40 mg, Oral, Daily mometasone-formoterol (DULERA) 200-5 MCG/ACT inhaler 2 puff, 2 puff, Inhalation, BID buPROPion (WELLBUTRIN XL) extended release tablet 150 mg, 150 mg, Oral, QAM DULoxetine (CYMBALTA) extended release capsule 60 mg, 60 mg, Oral, Daily ipratropium-albuterol (DUONEB) nebulizer solution 3 mL, 1 vial, Inhalation, Q4H PRN [id number] 3-35-2 mg (METANX) capsule (Patient Supplied), 1 capsule, Oral, Daily lactobacillus (CULTURELLE) capsule 1 capsule, 1 capsule, Oral, BID WC metFORMIN (GLUCOPHAGE) tablet 1,000 mg, 1,000 mg, Oral, BID WC insulin lispro (HUMALOG) injection vial 15 Units, 15 Units, SubCUTAneous, TID WC pantoprazole (PROTONIX) tablet 40 mg, 40 mg, Oral, QAM AC pregabalin (LYRICA) capsule 75 mg, 75 mg, Oral, TID rOPINIRole (REQUIP) tablet 3 mg, 3 mg, Oral, Nightly dulaglutide (TRULICITY) SC injection 1.5 mg (Patient Supplied), 1.5 mg, SubCUTAneous, Weekly sodium chloride flush 0.9 % injection 5-40 mL, 5-40 mL, IntraVENous, 2 times per day sodium chloride flush 0.9 % injection 5-40 mL, 5-40 mL, IntraVENous, PRN 0.9 % sodium chloride infusion, , IntraVENous, PRN enoxaparin (LOVENOX) injection 40 mg, 40 mg, SubCUTAneous, Daily ondansetron (ZOFRAN-ODT) disintegrating tablet 4 mg, 4 mg, Oral, Q8H PRN OR ondansetron (ZOFRAN) injection 4 mg, 4 mg, IntraVENous, Q6H PRN polyethylene glycol (GLYCOLAX) packet 17 g, 17 g, Oral, Daily PRN acetaminophen (TYLENOL) tablet 650 mg, 650 mg, Oral, Q6H PRN OR acetaminophen (TYLENOL) suppository 650 mg, 650 mg, Rectal, Q6H PRN glucose chewable tablet 16 g, 4 tablet, Oral, PRN dextrose bolus 10% 125 mL, 125 mL, IntraVENous, PRN OR dextrose bolus 10% 250 mL, 250 mL, IntraVENous, PRN glucagon (rDNA) injection 1 mg, 1 mg, SubCUTAneous, PRN dextrose 10 % infusion, , IntraVENous, Continuous PRN insulin lispro (HUMALOG) injection vial 0-16 Units, 0-16 Units, SubCUTAneous, TID WC insulin lispro (HUMALOG) injection vial 0-4 Units, 0-4 Units, SubCUTAneous, Nightly vancomycin (VANCOCIN) intermittent dosing (placeholder), , Other, RX Placeholder ASSESSMENT AND PLAN Improved cellulitis and wound improved. Will cont IVAB and plan d/c in AM- NWB/PWB in [facility] with qd betadine drsg and oral AB. Gram negcoverage needed(cipro) and probable Staph A or Epi with resistance likely(linezolid vs clinda if C&S not final) suggested, depending on C&S result. Spoke tp Dr Zenon Santiago at [facility] and agreed to accept his return and resume care with probable gr toe amp.- Appt Mon AM * Dariusz Hampton [facility] - 06/28/2022 10:50 AM EDT Vancomycin Dosing by Pharmacy - Daily Note Vancomycin Therapy Day: 3 Indication: SSTI/Osteo Allergies: Patient has no known allergies. Actual Weight: Wt Readings from Last 1 Encounters: 06/26/22 208 lb (94.3 kg) Labs/Ancillary Data Estimated Creatinine Clearance: 81 mL/min (based on SCr of 1.09 mg/dL). Recent Labs 06/26/22 1415 06/27/22 0345 06/28/22 0450 CREATININE 1.43* 1.31* 1.09 BUN 15 14 15 WBC 8.8 6.0 -- No results found for: PROCAL Intake/Output Summary (Last 24 hours) at 06/28/2022 1021 Last data filed at 06/28/2022 0832 Gross per 24 hour Intake 1896.77 ml Output 1200 ml Net 696.77 ml Temp: 98.7 Culture Date / Source / Results 06/26 Blood No growth 2 days 06/27 Wound Mixed Bacterial Morphotypes (Gram stain) Recent vancomycin administrations vancomycin (VANCOCIN) 1,250 mg in sodium chloride 0.9 % 250 mL IVPB (mg) 1,250 mg New Bag 06/28/22 0240 1,250 mg New Bag 06/27/22 0913 vancomycin 1000 mg IVPB in 250 mL NS addavial (mg) 1,000 mg New Bag 06/26/22 1625 MRSA Nasal Swab: N/A. Non-respiratory infection.. PLAN Will continue maintenance dose of Vancomycin 1250 mg IV every 18 hours as ordered - next dose 06/28 @ 1999 Using updated patient parameters and Bayesian software modeling, current dosing predicts an AUC = 453 mg/L/hr and steady state trough concentration = 13.2 mg/L Will order a random vancomycin level for 06/29/2022 at 0600 Pharmacy will continue to monitor patient condition, renal function, and other labs and adjust therapy as indicated. Vancomycin Target Concentration Parameters Treatment Population Target AUC/LANDY Target Trough Invasive MRSA Infection (bacteremia, pneumonia, meningitis, endocarditis, osteomyelitis) Sepsis (undifferentiated) 400-600 N/A Infection due to non-MRSA pathogen Empiric treatment of non-invasive MRSA infection (SSTI, UTI) <500 10-15 mg/L CrCl < 29 mL/min Rapidly fluctuating serum creatinine HALEY N/A < 15 mg/L Renal replacement therapy is dosed by levels, per hospital protocol. Abbreviations * Pauc: probability that AUC is >400 (efficacy); Pconc: probability that Ctrough is above 20 ?g/mL (toxicity); Tox: Probability of nephrotoxicity, based on Marcia et al. Clin Infect Dis 2009. Thank you for the consult. Pharmacy will continue to follow. Dariusz Hampton, PharmD 06/28/2022 10:49 AM * Iwona S Safia - 06/28/2022 9:42 AM EDT [facility] Date: 06/28/2022 Physical Therapy Daily Note Patient Name: Jillian Little : 1960 (62 y.o.) Pt is PROGRESSING toward goals and increased independence of mobility this treatment session Discharge Recommendations: Home with assist PRN Assessment WB Status: Ambulates with wheeled walker ~15 ft to w/c. Later ambulates with straight cane ~65 ft x1 both with supervision and no LOB Stairs # Steps : 5 (x4 laps) Stairs Height: 4 (and 6 ) Rails: None Device: Single pt cane Assistance: Stand by assistance, Supervision Assessment: Patient seated at edge of bed upon arrival to room. Agrees to work with TRAIN OPERATOR. Walking boot is applied prior to session and patient is educated on how to use. Sit to stand from bed is independent. Requests need for bathroom and ambulates to bathroom wtih wheeled walker. Good standing balance to urinate and then to wash hands at sink. Ambulates then to w/c in hallway and is wheeled to therapy room. Educated on steps utilizing straight cane and no handrails. Up/down 4 and 6 steps withstraight cane and SBA/supervision. No LOB noted. Patient is educated and does well at maintaining weight bearing through his L heel on steps. Wheeled part way back to room and is able to ambulate ~65ftx1 with straight cane and SBA/supervision. Remains sitting at side of bed following session with call light in reach. Per PT plan, patient is safe with steps and will be discharged from PT at this time. Safety Devices Type of Devices: Call light within reach, Gait belt, Left in bed (sitting at side of bed) Call light in reach, Phone in reach, Use of Gait belt, and Left in bed Time In: 904 Time Out: 929 Timed Coded Minutes: 25 Total Treatment Time: 25 Plan Cont Per Plan Of Care Goals Short Term Goals Time Frame for Short Term Goals: 3 visits Short Term Goal 1: Assess functional mobility using walker and promote safety with NWB LLE gait on level surfaces independently-MET Short Term Goal 2: Educate on stair ambulation using cane and heel weight bearing LLE to safely enter/exit home-MET Halfway Goals [facility] License Number: TRAIN OPERATOR Date: 06/28/2022 * Kiet Farah MD - 06/28/2022 8:17 AM EDT Hospitalist Progress Note 06/28/2022 8:17 AM Subjective: Admit Date: 06/26/2022 PCP: Sara Lester, Interval History: Patient states he is doing well, has no complaints this morning. Appetite is good. Reports no nausea, no abdominal pain, no diarrhea. States pain in the left foot resolved. Diet: ADULT DIET; Regular; 4 carb choices (60 gm/meal) ADULT ORAL NUTRITION SUPPLEMENT; Breakfast, Dinner; Wound Healing Oral Supplement ADULT ORAL NUTRITION SUPPLEMENT; Lunch; Diabetic Oral Supplement Medications: Scheduled Meds: cefepime (MAXIPIME) 2000 mg in NS 50 mL IVPB (mini-bag) 2,000 mg IntraVENous 3 times per day amitriptyline 25 mg Oral Nightly atorvastatin 40 mg Oral Daily mometasone-formoterol 2 puff Inhalation BID buPROPion 150 mg Oral QAM DULoxetine 60 mg Oral Daily [id number] 1 capsule Oral Daily lactobacillus 1 capsule Oral BID WC metFORMIN 1,000 mg Oral BID WC insulin lispro 15 Units SubCUTAneous TID WC pantoprazole 40 mg Oral QAM AC pregabalin 75 mg Oral TID rOPINIRole 3 mg Oral Nightly dulaglutide 1.5 mg SubCUTAneous Weekly sodium chloride flush 5-40 mL IntraVENous 2 times per day enoxaparin 40 mg SubCUTAneous Daily insulin lispro 0-16 Units SubCUTAneous TID WC insulin lispro 0-4 Units SubCUTAneous Nightly insulin glargine 40 Units SubCUTAneous BID vancomycin (VANCOCIN) intermittent dosing (placeholder) Other RX Placeholder vancomycin 1,250 mg IntraVENous Q18H Continuous Infusions: sodium chloride 15 mL/hr at 06/28/22 0647 dextrose PRN Medications: ipratropium-albuterol, sodium chloride flush, sodium chloride, ondansetron OR ondansetron, polyethylene glycol, acetaminophen OR acetaminophen, glucose, dextrose bolus ORdextrose bolus, glucagon (rDNA), dextrose Objective: Vitals: BP 117/71 Pulse 94 Temp 98.4 F (36.9 C) (Oral) Resp 16 Ht 5' 9 (1.753 m) Wt 208 lb (94.3 kg) SpO2 90% BMI 30.72 kg/m BMI: Body mass index is 30.72 kg/m . CBC: Recent Labs 06/26/22 1415 06/27/22 0345 WBC 8.8 6.0 HGB 10.7* 10.4* PLT 350 334 BMP: Recent Labs 06/26/22 1415 06/27/22 0345 06/28/22 0450 NA 131* 137 137 K 4.4 4.5 4.5 CL 94* 102 103 CO2 23 25 25 BUN 15 14 15 CREATININE 1.43* 1.31* 1.09 GLUCOSE 560* 290* 320* Hepatic: Recent Labs 06/26/22 1415 AST 21 ALT 17 BILITOT 0.6 ALKPHOS 129 Physical Exam: General Appearance: alert and oriented to person, place and time, in no acute distress Cardiovascular: normal rate, regular rhythm, normal S1 and S2, no murmurs, rubs, clicks, or gallops, distal pulses intact, Pulmonary/Chest: clear to auscultation bilaterally- no wheezes, rales or rhonchi, normal air movement, no respiratory distress Abdomen: soft, non-tender, non-distended, normal bowel sounds Extremities: Left great toe and foot dressed, mild swelling, right foot with no edema, missing third and fifth toes due to previous amputations Skin: warm and dry, no rash Head: normocephalic and atraumatic Eyes: pupils equal, round, and reactive to light Neck: supple and non-tender without mass, no thyromegaly Musculoskeletal: normal range of motion, no joint swelling, deformity or tenderness Neurological: alert, oriented, normal speech, no focal findings or movement disorder noted Review of Labs and Diagnostic Testing: Recent Results Recent Results (from the past 24 hour(s)) CBC with Auto Differential Collection Time: 06/26/22 2:15 PM Result Value Ref Range WBC 8.8 3.5 - 11.0 k/uL RBC 3.49 (L) 4.5 - 5.9 m/uL Hemoglobin 10.7 (L) 13.5 - 17.5 g/dL Hematocrit 31.9 (L) 41 - 53 % MCV 91.3 80 - 100 fL MCH 30.5 26 - 34 pg MCHC 33.5 31 - 37 g/dL RDW 13.9 12.1 - 15.2 % Platelets 350 140 - 450 k/uL Differential Type YES Seg Neutrophils 74 39 - 75 % Lymphocytes 17 13 - 44 % Monocytes 8 5 - 9 % Eosinophils % 1 0 - 5 % Basophils 0 0 - 2 % Segs Absolute 6.50 2.1 - 6.5 k/uL Absolute Lymph # 1.50 1.0 - 4.8 k/uL Absolute Pope # 0.70 0.0 - 1.0 k/uL Absolute Eos # 0.10 0.0 - 0.4 k/uL Basophils Absolute 0.00 0.0 - 0.2 k/uL CMP Collection Time: 06/26/22 2:15 PM Result Value Ref Range Glucose 560 (HH) 70 - 99 mg/dL BUN 15 8 - 23 mg/dL Creatinine 1.43 (H) 0.70 - 1.20 mg/dL Est, Glom Filt Rate 56 (L) >60 mL/min/1.73m2 Bun/Cre Ratio 10 9 - 20 Calcium 8.9 8.6 - 10.4 mg/dL Sodium 131 (L) 135 - 144 mmol/L Potassium 4.4 3.7 - 5.3 mmol/L Chloride 94 (L) 98 - 107 mmol/L CO2 23 20 - 31 mmol/L Anion Gap 14 9 - 17 mmol/L Alkaline Phosphatase 129 40 - 129 U/L ALT 17 5 - 41 U/L AST 21 <40 U/L Total Bilirubin 0.6 0.3 - 1.2 mg/dL Total Protein 7.6 6.4 - 8.3 g/dL Albumin 3.7 3.5 - 5.2 g/dL Sedimentation Rate Collection Time: 06/26/22 2:15 PM Result Value Ref Range Sed Rate 49 (H) 0 - 20 mm/Hr C-Reactive Protein Collection Time: 06/26/22 2:15 PM Result Value Ref Range CRP 151.6 (H) 0.0 - 5.0 mg/L Culture, Blood 2 Collection Time: 06/26/22 2:15 PM Specimen: Blood Result Value Ref Range Specimen Description .BLOOD Special Requests 10 ML LEFT AC Culture NO GROWTH 15 HOURS COVID-19, Rapid Collection Time: 06/26/22 2:15 PM Specimen: Nasopharyngeal Swab Result Value Ref Range Specimen Description .NASOPHARYNGEAL SWAB SARS-CoV-2, Rapid Not Detected Not Detected Culture, Blood 1 Collection Time: 06/26/22 2:26 PM Specimen: Blood Result Value Ref Range Specimen Description .BLOOD Culture NO GROWTH 15 HOURS Glucose, Whole Blood Collection Time: 06/26/22 4:29 PM Result Value Ref Range POC Glucose 381 (H) 65 - 99 mg/dL Glucose, Whole Blood Collection Time: 06/26/22 8:32 PM Result Value Ref Range POC Glucose 333 (H) 65 - 99 mg/dL Basic Metabolic Panel w/ Reflex to MG Collection Time: 06/27/22 3:45 AM Result Value Ref Range Glucose 290 (H) 70 - 99 mg/dL BUN 14 8 - 23 mg/dL Creatinine 1.31 (H) 0.70 - 1.20 mg/dL Est, Glom Filt Rate >60 >60 mL/min/1.73m2 Bun/Cre Ratio 11 9 - 20 Calcium 8.7 8.6 - 10.4 mg/dL Sodium 137 135 - 144 mmol/L Potassium 4.5 3.7 - 5.3 mmol/L Chloride 102 98 - 107 mmol/L CO2 25 20 - 31 mmol/L Anion Gap 10 9 - 17 mmol/L CBC with Auto Differential Collection Time: 06/27/22 3:45 AM Result Value Ref Range WBC 6.0 3.5 - 11.0 k/uL RBC 3.40 (L) 4.5 - 5.9 m/uL Hemoglobin 10.4 (L) 13.5 - 17.5 g/dL Hematocrit 31.0 (L) 41 - 53 % MCV 91.0 80 - 100 fL MCH 30.6 26 - 34 pg MCHC 33.7 31 - 37 g/dL RDW 13.9 12.1 - 15.2 % Platelets 334 140 - 450 k/uL Differential Type YES Seg Neutrophils 55 39 - 75 % Lymphocytes 34 13 - 44 % Monocytes 8 5 - 9 % Eosinophils % 3 0 - 5 % Basophils 0 0 - 2 % Segs Absolute 3.30 2.1 - 6.5 k/uL Absolute Lymph # 2.00 1.0 - 4.8 k/uL Absolute Pope # 0.50 0.0 - 1.0 k/uL Absolute Eos # 0.20 0.0 - 0.4 k/uL Basophils Absolute 0.00 0.0 - 0.2 k/uL Glucose, Whole Blood Collection Time: 06/27/22 7:34 AM Result Value Ref Range POC Glucose 289 (H) 65 - 99 mg/dL Radiology: XR FOOT LEFT (MIN 3 VIEWS) Result Date: 06/26/2022 EXAM: XR FOOT LEFT (MIN 3 VIEWS) HISTORY: Reason for exam:->big toe infection COMPARISON: 06/21/2022. FINDINGS/IMPRESSION: 1. 8 mm area rarefaction in the medial articular aspect proximal portion of the distal phalanx great toe with associated skin ulcer and soft tissue swelling is more suspicious for osteomyelitis than previously. 2. No gas in the soft tissues. Medical Decision Making (MDM) Data: External documents reviewed: My CXR interpretation: My EKG interpretation: Discussed with: ER physician Dr. Harrison and podiatry Tests considered but not ordered: Heart score: Social Determinants of Health that impact treatment or disposition: Assessment and Plan 1. Left great toe possible osteomyelitis, left foot cellulitis -continue on IV vancomycin and cefepime. Consulted podiatry , help is greatly appreciated. Recommends to treat with IV antibiotics for 1 or 2 more days and change to p.o. on discharge with further recommendation to follow-up with [facility] and his product safety expert Dr. Santiago 2. Diabetes mellitus type 2, uncontrolled, insulin-dependent - patient historically noncompliant with his insulin therapy. Glucose level was critically elevated 560 on admission. No evidence of DKA. Resumed Lantus 40 units twice daily, sliding scale insulin, Trulicity, metformin, hyperglycemia improved. 3. 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 History of COPD - no symptoms of COPD, continue on Dulera 5. Restless leg syndrome - on Requip 6. History of depression -mood is stable on Wellbutrin and Cymbalta 7. Probable CKD 8. Chronic anemia Differential Diagnosis: Left great toe diabetic ulcer/cellulitis, osteomyelitis Condition is improving / unchanged / worsening: Improving Condition is a treatment goal: No Chronic condition is / is not having mild / moderate, severe exacerbation, progression or side effects of treatment: Shared decision making: Code status and discussions: Full code Medical Necessity: Inpatient is appropriate for this patient due to need for IV antibiotics, podiatry consultation, wound care Estimated length of stay: 2 days. The beneficiary may reasonably be expected to be discharged or transferred to a hospital within 96 hours after admission. Kiet Farah MD, MD Rounding Hospitalist * Misty Carranza RN - 06/27/2022 2:08 PM EDT Pt's girlfriend in to visit- she did not bring in pt's home medications. Pt and and girlfriend unable to give verbal recall for home meds. * DIANA Harris - 06/27/2022 10:22 AM EDT manager college and SW met with pt to complete assessment during quality rounds this morning. Pt isalert and oriented and pleasant with assessment. Pt is a 62 year old male admitted for osteomyelitis of great toe of left foot. Pt lives with his girlfriend in their home in [place]. Pt has a nebulizer, walker, cane, glucometer, and multiple walking boots. Pt is not using any community services at home. Pt drives and is able to get himself to appointments. Pt is a full code and follows with Dr Lester as PCP. Pt does not have advance directives and does not wish to complete these. Pt reports that his girlfriend would be his decision maker if needed. ACPnote completed with pt. Pt reports that his medications are covered completely by his insurance. Pt plans to return home at discharge with follow up to his product safety expert at [facility]. Ptidentifies no discharge needs or concerns. Pt states that his girlfriend can assist with any dressing changes that are needed. SW will follow and remain available as needed. Yulisa SIERRA HIMS MANAGER 06/27/2022 * Stella Soares RD, LD - 06/27/2022 10:11 AM EDT Comprehensive Nutrition Assessment Type and Reason for Visit: Initial, Wound Nutrition Recommendations/Plan: Continue current diet. Start Mynor BID for healing needs. Continue probiotic. Start 4 oz Glucerna daily at lunch for healing needs. Recommend addition of daily MVI with minerals. Provided basic CC diet information at bedside. Malnutrition Assessment: Malnutrition Status: Insufficient data (06/27/22 1011) Context: Acute Illness Findings of the 6 clinical characteristics of malnutrition: Energy Intake: Unable to assess Weight Loss: No significant weight loss Body Fat Loss: No significant body fat loss Muscle Mass Loss: No significant muscle mass loss Fluid Accumulation: Mild Extremities (+ 1 BLE) Manufacturing Applications Engineer Strength: Not Performed Nutrition Assessment: Increased nutrient needs r/t acute injury/trauma aeb healing needs from DM wound. Altered nutritionrelated labs r/t endocrine dysfunction aeb A1c 10.4, increased 3% x 4 months. Support probiotic. Recommend addition of MVI with minerals, Mynor BID, and 4 oz Glucerna daily with lunch to aid healing needs. Recommend to obtain vitamin D level due to risk for deficiency. Encourage protein foods. CC diet information left at bedside due to Pt asleep and did not awaken to knock or name. Nutrition Related Findings: appears well nourished Wound Type: Diabetic Ulcer Current Nutrition Intake & Therapies: Average Meal Intake: 76-100% Average Supplements Intake: None Ordered ADULT DIET; Regular; 4 carb choices (60 gm/meal) Anthropometric Measures: Height: 5' 9 (175.3 cm) Redford Body Weight (IBW): 160 lbs (73 kg) Admission Body Weight: 208 lb (94.3 kg) Current Body Weight: 208 lb (94.3 kg), 130 % IBW. Weight Source: Bed Scale Current BMI (kg/m2): 30.7 Usual Body Weight: 216 lb (98 kg) % Weight Change (Calculated): -3.7 Weight Adjustment For: No Adjustment BMI Categories: Obese Class 1 (BMI 30.0-34.9) Estimated Daily Nutrient Needs: Energy Requirements Based On: Kcal/kg Weight Used for Energy Requirements: Current Energy (kcal/day): 5525-0558 (20-23/kg) Weight Used for Protein Requirements: Redford Protein (g/day): 95-117g (1.3-1.6g/kg) Method Used for Fluid Requirements: 1 ml/kcal Fluid (ml/day): 2,200 ml Recent Labs 06/26/22 1415 06/27/22 0345 NA 131* 137 K 4.4 4.5 CL 94* 102 CO2 23 25 BUN 15 14 CREATININE 1.43* 1.31* GLUCOSE 560* 290* ALT 17 -- ALKPHOS 129 -- Lab Results Component Value Date/Time LABALBU 3.7 06/26/2022 02:15 PM Lab Results Component Value Date/Time LABA1C 10.4 04/02/2022 12:00 AM Recent Labs 06/26/22 1629 06/26/22203106/27/22 0734 POCGLU 381* 333* 289* Lab Results Component Value Date/Time TRIG 356 11/17/2021 06:43 AM HDL 35 11/17/2021 06:43 AM LDLDIRECT 89 12/03/2017 09:17 AM Nutrition Diagnosis: Increased nutrient needs related to acute injury/trauma as evidenced by wounds Altered nutrition-related lab values related to endocrine dysfuntion as evidenced by lab values Nutrition Interventions: Food and/or Nutrient Delivery: Continue Current Diet, Mineral Supplement, Vitamin Supplement, StartOral Nutrition Supplement Nutrition Education/Counseling: Education needed, Education initiated Coordination of Nutrition Care: Continue to monitor while inpatient Plan of Care discussed with: no one Goals: Goals: Meet at least 75% of estimated needs Nutrition Monitoring and Evaluation: Behavioral-Environmental Outcomes: None Identified Food/Nutrient Intake Outcomes: Food and Nutrient Intake, Supplement Intake Physical Signs/Symptoms Outcomes: Biochemical Data, Weight, Skin, Fluid Status or Edema Discharge Planning: Continue Oral Nutrition Supplement STELLA [address], [place]NE MARIE Contact: [phone] * August French, [facility] - 06/26/2022 7:[address] [facility] Pharmacokinetic Monitoring Service - Vancomycin Jillian Little is a 62 y.o. male starting on vancomycin therapy for skin and soft tissue/osteo. Pharmacy consulted by Dr. Farah for monitoring and adjustment. Target Concentration: Goal AUC/LANDY 400-600 mg*hr/L Additional Antimicrobials: Zosyn Pertinent Laboratory Values: Wt Readings from Last 1 Encounters: 06/26/22 208 lb (94.3 kg) Temp Readings from Last 1 Encounters: 06/26/22 98.7 F (37.1 C) (Oral) Estimated Creatinine Clearance: 61 mL/min (A) (based on SCr of 1.43 mg/dL (H)). Recent Labs 06/26/22 1415 CREATININE 1.43* WBC 8.8 Procalcitonin: Pertinent Cultures: Culture Date Source Results MRSA Nasal Swab: N/A. Non-respiratory infection. Plan: Dosing recommendations based on Bayesian software Start vancomycin 1250mg q18 Anticipated AUC of 498 and trough concentration of 15.8 at steady state Renal labs as indicated Pharmacy will continue to monitor patient and adjust therapy as indicated Thank you for the consult, August French RP 06/26/2022 7:04 PM * Adrienne Cooper RN - 06/26/2022 7:00 PM EDT Consult called to Dr. Peace at this time. * Audrey Lau RN - 06/26/2022 6:48 PM EDT Patient and are unable to specify specific home medications he he currently taking. states He took he morning medications but I'm not sure what they are called. asked to bring in patient's medications when able. [facility] Work Phone: [phone] 466-772002-06-2023 Note [facility] Vascular Lower Arterial Plethysmography Procedure Patient Name KATHARINA WALSH Date of Study 04/16/2022 E Date of 1960 Gender Male Age 62 year(s) Race Room Number Corporate ID # [id number] Patient MR # [id number] Safety Relief Valve Technician RT Kendell Interpreting Physician Tank Neely Referring Referring Physician Sara Lester Nurse Practitioner Procedure Type of Study: Extremities Arteries: Lower Arterial Plethysmography, PVR Lower with PPG. Indications for Study:Diminished pulses. Patient Status:Routine. 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 Near normal waveforms. Signature Electronically signed by RT Kendell(Adarsh)(Dara)(CT)([facility])(Safety Relief Valve Technician) on 04/16/2022 11:11 AM Findings: Right Impression: Left Impression: Right STEW within normal limits at Left STEW within normal limits at 1.09 1.08 Velocities are measured in cm/s ; Diameters are measured in cm Pressures + ++--------+-----+----+--------+-----+ ! !!Right ! !Left! ! ! + ++--------+-----+----+--------+-----+ !Location !!Pressure!Ratio! !Pressure!Ratio! + ++--------+-----+----+--------+-----+ !Thigh !!122 !1.06 ! !128 !1.11 ! + ++--------+-----+----+--------+-----+ !Calf !!119 !1.03 ! !125 !1.09 ! + ++--------+-----+----+--------+-----+ !Ankle PT !!120 !1.04 ! !117 !1.02 ! + ++--------+-----+----+--------+-----+ !Ankle DP !!124 !1.08 ! !125 !1.09 ! + ++--------+-----+----+--------+-----+ !Great Toe !!143 !1.24 ! !125 !1.09 ! + ++--------+-----+----+--------+-----+ - Brachial Pressure:Right: 103.Left:115. - STEW:Right: 1.08.Left: 1.09. Right Plethysmographic Results + + + + + + !Right ! ! ! ! ! + + + + + + !Location !Pressure !Ratio !Notch !Amplitude ! + + + + + + !Calf !119 !1.03 ! ! ! + + + + + + !Ankle PT !120 !1.04 ! ! ! + + + + + + !Ankle DP !124 !1.08 ! ! ! + + + + + + - Right Brachial Pressure:103. - Right STEW:1.08. Left Plethysmographic Results + + + + + + !Left ! ! ! ! ! + + + + + + !Location !Pressure !Ratio !Notch !Amplitude ! + + + + + + !Calf !125 !1.09 ! ! ! + + + + + + !Ankle PT !117 !1.02 ! ! ! + + + + + + !Ankle DP !125 !1.09 ! ! ! + + + + + + - Left Brachial Pressure:115. - Left STEW:1.09. Plethysmographic Digit Evaluation +---------++--------+-----+ ++--- (more content not included)... MHPN MHW CPACSEvaluation + Plan note Future Appointments Appointment Date:06/12/2021 08:00:00 AM Scheduled Provider: Location[facility] [facility] Type[facility] () [facility] Future Appointments Appointment Date:06/26/2021 09:45:00 AM Scheduled Provider: [facility] Appointment Type:WC Assessment (FT) Appointment Date:07/03/2021 10:30:00 AM Scheduled Provider:Zenon Santiago DPM [facility] Appointment Type:WC [facility] Up [facility] (FT) [facility] Future Appointments Appointment Date:07/03/2021 10:30:00 AM Scheduled Provider:Zenon Santiago DPM [facility] Appointment Type:WC [facility] (FT) [facility] Future Appointments Appointment Date:07/10/2021 01:00:00 PM Scheduled Provider: [facility] Appointment Type:WC Assessment (FT) Appointment Date:07/17/2021 09:45:00 AM Scheduled Provider:Zenon Santiago DPM [facility] Appointment Type:WC [facility] Future Appointments Appointment Date:07/17/2021 09:45:00 AM Scheduled Provider:Zenon Santiago DPM [facility] Appointment Type:WC [facility] Up [facility] (FT) [facility] note Future Appointments Appointment Date:07/31/2021 09:45:00 AM Scheduled Provider:Zenon Santiago DPM [facility] Appointment Type:WC [facility] Up [facility] (FT) [facility] Future Appointments Appointment Date:08/14/2021 09:45:00 AM Scheduled Provider:Zenon Santiago DPM [facility] Appointment Type:WC [facility] Future Appointments Appointment Date:08/30/2021 10:00:00 AM Scheduled Provider:Zenon Santiago DPM [facility] Appointment Type:WC [facility] (FT[facility] Future Appointments Appointment Date:09/06/2021 11:00:00 AM Scheduled Provider:Zenon Santiago DPM [facility] Appointment Type:WC [facility] (FT) [facility] Future Appointments Appointment Date:09/12/2021 03:30:00 PM Scheduled Provider:Maxim Santiago DPM [facility] Appointment Type:WC [facility] (FT) [facility] Future Appointments Appointment Date:09/18/2021 10:00:00 AM Scheduled Provider:Zenon Santiago DPM [facility] Appointment Type:WC Follow Up Visit (FT) Appointment Date:09/20/2021 10:15:00 AM Scheduled Provider:Zenon Santiago DPM [facility] Appointment Type:WC [facility] (FT) [facility] Future Appointments Appointment Date:09/20/2021 10:15:00 AM Scheduled Provider:Zenon Santiago DPM [facility] Appointment Type:WC [facility] (FT[facility] Future Appointments Appointment Date:09/27/2021 11:15:00 AM Scheduled Provider:Zenon Santiago DPM [facility] Appointment Type:WC [facility] Up Visit (FT) [facility] Future Appointments Appointment Date:10/04/2021 11:45:00 AM Scheduled Provider:Zenon Santiago DPM [facility] Appointment Type:WC [facility] Up Visit (FT) [facility] Future Appointments Appointment Date:10/11/2021 02:30:00 PM Scheduled Provider: [facility] Appointment Type:WC Assessment (FT) Appointment Date:10/18/2021 09:30:00 AM Scheduled Provider:Zenon Santiago DPM [facility] Appointment Type:WC [facility] Up [facility] (FT) [facility] Future Appointments Appointment Date:10/18/2021 09:30:00 AM Scheduled Provider:Zenon Santiago DPM [facility] Appointment Type:WC [facility] (FT) [facility] Future Appointments Appointment Date:10/25/2021 09:30:00 AM Scheduled Provider:Dolce DPM, Zenon R [facility] Appointment Type:WC [facility] Up Visit (FT) [facility] Future Appointments Appointment Date:11/08/2021 09:15:00 AM Scheduled Provider:Zenon Santiago DPM [facility] Appointment Type:WC [facility] Up Visit (FT) [facility] Future Appointments Appointment Date:04/04/2022 09:45:00 AM Scheduled Provider:Zenon Santiago DPM [facility] Appointment Type:WC [facility] Up Visit (FT) [facility] Future Appointments Appointment Date:04/18/2022 10:45:00 AM Scheduled Provider:Zenon Santiago DPM [facility] Appointment Type:WC [facility] Up [facility] (FT) [facility] Future Appointments Appointment Date:05/02/2022 09:45:00 AM Scheduled Provider:Zenon Santiago DPM [facility] Appointment Type:WC [facility] Up Visit (FT) [facility] Future Appointments Appointment Date:05/16/2022 09:15:00 AM Scheduled Provider:Zenon Santiago DPM [facility] Appointment Type:WC [facility] Up Visit (FT) [facility] Future Appointments Appointment Date:06/06/2022 10:15:00 AM Scheduled Provider:Zenon Santiago DPM [facility] Appointment Type:WC [facility] Up Visit (FT) [facility] Future Appointments Appointment Date:06/12/2022 11:30:00 AM Scheduled Provider: [facility] Appointment Type:WC Assessment (FT) Appointment Date:06/19/2022 11:30:00 AM Scheduled Provider: [facility] Appointment Type:WC Assessment (FT) Appointment Date:06/27/2022 11:00:00 AM Scheduled Provider:Zenon Santiago DPM [facility] Appointment Type:WC [facility] Up [facility] (FT) [facility] Future Appointments Appointment Date:06/27/2022 11:00:00 AM Scheduled Provider:Zenon Santiago DPM [facility] Appointment Type:WC [facility] Up Visit (FT) [facility] Future Appointments Appointment Date:08/20/2022 09:00:00 AM Scheduled Provider: [facility] Appointment Type:WC Assessment (FT) Appointment Date:08/22/2022 01:30:00 PM Scheduled Provider: [facility] Appointment Type:WC Assessment (FT) Appointment Date:08/24/2022 09:30:00 AM Scheduled Provider: [facility] Appointment Type:WC Assessment (FT) [facility] Future Appointments Appointment Date:08/22/2022 01:30:00 PM Scheduled Provider: [facility] Appointment Type:WC Assessment (FT) Appointment Date:08/24/2022 09:30:00 AM Scheduled Provider: [facility] Appointment Type:WC Assessment (FT) [facility] Future Appointments Appointment Date:08/27/2022 08:00:00 AM Scheduled Provider: [facility] Appointment Type:WC Assessment (FT) Appointment Date:08/29/2022 10:30:00 AM Scheduled Provider:Zenon Santiago DPM [facility] Appointment Type:WC Follow Up Visit (FT) Appointment Date:08/31/2022 08:30:00 AM Scheduled Provider: [facility] Appointment Type:WC Assessment (FT) [facility] Future Appointments Appointment Date:08/29/2022 10:30:00 AM Scheduled Provider:Zenon Santiago DPM [facility] Appointment Type:WC Follow Up Visit (FT) Appointment Date:08/31/2022 08:30:00 AM Scheduled Provider: [facility] Appointment Type:WC Assessment (FT) [facility] Future Appointments Appointment Date:08/31/2022 08:30:00 AM Scheduled Provider: [facility] Appointment Type:WC Assessment (FT) Appointment Date:09/05/2022 11:45:00 AM Scheduled Provider:Zenon Santiago DPM [facility] Appointment Type:WC [facility] Up Visit (FT) [facility] Future Appointments Appointment Date:09/03/2022 01:30:00 PM Scheduled Provider: [facility] Appointment Type:WC Assessment (FT) Appointment Date:09/05/2022 11:45:00 AM Scheduled Provider:Zenon Santiago DPM [facility] Appointment Type:WC Follow Up Visit (FT) Appointment Date:09/07/2022 08:30:00 AM Scheduled Provider: [facility] Appointment Type:WC Assessment (FT) [facility] Future Appointments Appointment Date:09/05/2022 11:45:00 AM Scheduled Provider:Zenon Santiago DPM [facility] Appointment Type:WC Follow Up Visit (FT) Appointment Date:09/07/2022 08:30:00 AM Scheduled Provider: [facility] Appointment Type:WC Assessment (FT) [facility] Future Appointments Appointment Date:09/10/2022 09:00:00 AM Scheduled Provider: [facility] Appointment Type:WC Assessment (FT) Appointment Date:09/12/2022 09:30:00 AM Scheduled Provider: [facility] Appointment Type:WC Assessment (FT) Appointment Date:09/14/2022 09:00:00 AM Scheduled Provider: [facility] Appointment Type:WC Assessment (FT) Appointment Date:09/19/2022 12:00:00 PM Scheduled Provider:Zenon Santiago DPM [facility] Appointment Type:WC [facility] Up [facility] (FT) [facility] Future Appointments Appointment Date:09/12/2022 09:30:00 AM Scheduled Provider: [facility] Appointment Type:WC Assessment (FT) Appointment Date:09/14/2022 09:00:00 AM Scheduled Provider: [facility] Appointment Type:WC Assessment (FT) Appointment Date:09/19/2022 12:00:00 PM Scheduled Provider:Zenon Santiago DPM [facility] Appointment Type:WC [facility] Up [facility] (FT) [facility] Future Appointments Appointment Date:09/14/2022 09:00:00 AM Scheduled Provider: [facility] Appointment Type:WC Assessment (FT) Appointment Date:09/19/2022 12:00:00 PM Scheduled Provider:Zenon Santiago DPM [facility] Appointment Type:WC [facility] Up Visit (FT) [facility] Future Appointments Appointment Date:09/19/2022 12:00:00 PM Scheduled Provider:Zenon Santiago DPM [facility] Appointment Type:WC [facility] Up Visit (FT) [facility] Future Appointments Appointment Date:09/21/2022 09:00:00 AM Scheduled Provider: [facility] Appointment Type:WC Assessment (FT) Appointment Date:09/24/2022 11:00:00 AM Scheduled Provider: [facility] Appointment Type:WC Assessment (FT) Appointment Date:09/26/2022 09:15:00 AM Scheduled Provider:Zenon Santiago DPM [facility] Appointment Type:WC [facility] Up Visit (FT) [facility] Future Appointments Appointment Date:09/24/2022 11:00:00 AM Scheduled Provider: [facility] Appointment Type:WC Assessment (FT) Appointment Date:09/26/2022 09:15:00 AM Scheduled Provider:Zenon Santiago DPM [facility] Appointment Type:WC Follow Up Visit (FT) Appointment Date:09/28/2022 09:00:00 AM Scheduled Provider: [facility] Appointment Type:WC Assessment (FT) [facility] Future Appointments Appointment Date:09/26/2022 09:15:00 AM Scheduled Provider:Zenon Santiago DPM [facility] Appointment Type:WC Follow Up Visit (FT) Appointment Date:09/28/2022 09:00:00 AM Scheduled Provider: [facility] Appointment Type:WC Assessment (FT) [facility] Future Appointments Appointment Date:10/02/2022 09:00:00 AM Scheduled Provider: [facility] Appointment Type:WC Assessment (FT) Appointment Date:10/10/2022 09:45:00 AM Scheduled Provider:Zenon Santiago DPM [facility] Appointment Type:WC [facility]FT[facility] Future Appointments Appointment Date:10/15/2022 11:15:00 AM Scheduled Provider: [facility] Appointment Type:WC [facility] (FT) [facility] Future Appointments Appointment Date:10/17/2022 11:45:00 AM Scheduled Provider:Zenon Santiago DPM [facility] Appointment Type:WC [facility]FT[facility] Future Appointments Appointment Date:10/19/2022 09:00:00 AM Scheduled Provider: [facility] Appointment Type:WC Assessment (FT) Appointment Date:10/25/2022 09:30:00 AM Scheduled Provider:Bill Ochoa MD [facility] Appointment Type:WC HBO Eval (FT) Appointment Date:10/31/2022 08:45:00 AM Scheduled Provider:Zenon Santiago DPM [facility] Appointment Type:WC Follow Up [facility] (FT) [facility] Future Appointments Appointment Date:10/31/2022 08:45:00 AM Scheduled Provider:Zenon Santiago DPM [facility] Appointment Type:WC [facility] Future Appointments Appointment Date:11/01/2022 08:00:00 AM Scheduled Provider: [facility] Appointment Type:WC HBO (FT) Appointment Date:11/02/2022 08:00:00 AM Scheduled Provider: [facility] Appointment Type:WC HBO (FT) Appointment Date:11/05/2022 08:00:00 AM Scheduled Provider: [facility] Appointment Type:WC HBO (FT) Appointment Date:11/06/2022 08:00:00 AM Scheduled Provider: [facility] Appointment Type:WC HBO (FT) Appointment Date:11/07/2022 10:45:00 AM Scheduled Provider:Zenon Santiago DPM [facility] Appointment Type:WC Follow Up Visit (FT) Appointment Date:11/07/2022 11:15:00 AM Scheduled Provider: [facility] Appointment Type:WC Assessment (FT) Appointment Date:11/07/2022 11:30:00 AM Scheduled Provider: [facility] Appointment Type:WC HBO (FT) Appointment Date:11/08/2022 11:30:00 AM Scheduled Provider: [facility] Appointment Type:WC HBO (FT) Appointment Date:11/09/2022 08:00:00 AM Scheduled Provider: [facility] Appointment Type:WC HBO (FT) Appointment Date:11/14/2022 11:30:00 AM Scheduled Provider:Zenon Santiago DPM [facility] Appointment Type:WC Follow Up Visit (FT) Appointment Date:11/29/2022 11:45:00 AM Scheduled Provider:Bill Ochoa MD [facility] Appointment Type:WC HBO Re-Eval (FT) [facility] Future Appointments Appointment Date:11/07/2022 11:30:00 AM Scheduled Provider: [facility] Appointment Type:WC HBO (FT) Appointment Date:11/08/2022 11:30:00 AM Scheduled Provider: [facility] Appointment Type:WC HBO (FT) Appointment Date:11/09/2022 08:00:00 AM Scheduled Provider: [facility] Appointment Type:WC HBO (FT) Appointment Date:11/14/2022 11:30:00 AM Scheduled Provider:Zenon Santiago DPM [facility] Appointment Type:WC Follow Up Visit (FT) Appointment Date:11/29/2022 11:45:00 AM Scheduled Provider:Bill Ochoa MD [facility] Appointment Type:WC HBO Re-Eval (FT) [facility] Future Appointments Appointment Date:11/26/2022 01:30:00 PM Scheduled Provider: [facility] Appointment Type:WC HBO (FT) Appointment Date:11/27/2022 08:30:00 AM Scheduled Provider: [facility] Appointment Type:WC HBO (FT) Appointment Date:11/28/2022 11:15:00 AM Scheduled Provider:Zenon Santiago DPM [facility] Appointment Type:WC Follow Up Visit (FT) Appointment Date:11/28/2022 11:30:00 AM Scheduled Provider: [facility] Appointment Type:WC HBO (FT) Appointment Date:11/29/2022 11:45:00 AM Scheduled Provider:Bill Ochoa MD [facility] Appointment Type:WC HBO Re-Eval (FT) Appointment Date:11/29/2022 01:30:00 PM Scheduled Provider: [facility] Appointment Type:WC HBO (FT) Appointment Date:11/30/2022 08:30:00 AM Scheduled Provider: [facility] Appointment Type:WC HBO (FT) [facility] Future Appointments Appointment Date:12/05/2022 07:45:00 AM Scheduled Provider:Zenon Santiago DPM [facility] Appointment Type:WC [facility] Up [facility] (FT) [facility] Future Appointments Appointment Date:12/19/2022 11:00:00 AM Scheduled Provider:Zenon Santiago DPM [facility] Appointment Type:WC [facility] Diagnosis Paronychia of great toe of left foot Onychia and paronychia of toe Diabetic polyneuropathy associated with type 2 diabetes mellitus (HCC) documented in this encounter [employer] Phone: evaluation note* Diagnosis Cellulitis of right foot- Primary Cellulitis and abscess of foot, except toes Type 2 diabetes mellitus with hyperglycemia, with long-term current use of insulin (HCC) documented in this encounter [employer] Phone: evaluation note* Diagnosis Charcot's joint of right foot Cellulitis of right foot Cellulitis and abscess of foot, except toes Diabetic neuropathic arthropathy (HCC) Type II or unspecified type diabetes mellitus with neurological manifestations, not stated as uncontrolled documented in this encounter [employer] Phone: evaluation note* Diagnosis Subacute bronchitis- Primary Acute bronchitis Lab test negative for COVID-19 virus documented in this encounter [employer] Phone: evaluation note* Diagnosis Type 2 diabetes mellitus with diabetic polyneuropathy, with long-term current use of insulin ([facility]) documented in this encounter [employer] Phone: evaluation note* Diagnosis Type 2 diabetes mellitus with diabetic polyneuropathy, with long-term current use of insulin ([facility]) documented in this encounter [employer] Phone: evaluation note* Diagnosis Full incontinence of feces Chronic midline low back pain without sciatica documented in this encounter [employer] Phone: evaluation note* Diagnosis Decreased pulse Other symptoms involving cardiovascular system documented in this encounter [employer] Phone: evaluation note* Diagnosis Abscess or cellulitis of toe, left- Primary Wound infection Posttraumatic wound infection not elsewhere classified documented in this encounter [employer] Phone: evaluation note* Diagnosis Osteomyelitis of great toe of left foot ([facility])- Primary Osteomyelitis of great toe ([facility]) Cellulitis of foot Cellulitis and abscess of foot, except toes Hyperglycemia Other abnormal glucose documented in this encounter [employer] Phone: evalqubvty note* Diagnosis HALEY (acute kidney injury) ([facility]) Acute kidney failure, unspecified documented in this encounter [facility] [employer] [facility] Diagnosis Foot ulcer, left, limited to breakdown of skin ([facility])- Primary Diabetic ulcer of left midfoot associated with type 2 diabetes mellitus, unspecified ulcer stage ([facility]) Foot ulcer, left, limited to breakdown of skin ([facility]) documented in this encounter [employer] Narrative No data available for this section [facility] Discharge instructions* Attachments The following attachments cannot be sent through Care Everywhere. * Cellulitis (Namibian) * Hyperglycemia: General Info (Namibian) [facility] Discharge [facility]* Attachments The following attachments cannot be sent through Care Everywhere. * Bronchitis (Namibian) * COPD: Prevent Lung Infections: General Info (Namibian) documented in this [facility] [employer] Phone: Hospital Discharge instructions No data available for this section [facility] Attachments The following attachments cannot be sent through Care Everywhere. * Abscess: Skin ([place]amibian) [facility] Phone: Hospital Discharge instructions* Attachments The following attachments cannot be sent through Care Everywhere. * Steroid-Induced Diabetes Mellitus: General Info (Namibian) * Cellulitis (Namibian) * Diabetes and Wound Care: Video (Namibian) documented in this [facility] [employer] Phone: progress note No data available for this section [facility] Diagnosis Diabetic polyneuropathy associated with type 2 diabetes mellitus (HCC) Diagnosis Diabetic polyneuropathy associated with type 2 diabetes mellitus (HCC) Diagnosis Osteomyelitis of right foot, unspecified type (HCC)- Primary Cellulitis of right foot Cellulitis and abscess of foot, except toes Cellulitis of foot Cellulitis and abscess of foot, except toes Advance Directives Documents on File Type Date Recorded 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 Storage 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 Expl anation Advance Directives and Living Will Power of Hydraulic Miner Latest Code Status on File Code Status Date Activated Date Inactivated Comments Full Code 05/26/2016 8:43 AM 05/30/2016 3:51 PM Documents on File Type Date Recorded 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 Storage 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 Expl anation ACP-Advance Directive ACP-Power of Hydraulic Miner Latest Code Status on File Code Status Date Activated Date Inactivated Comments Full Code 03/20/2020 3:58 AM 03/26/2020 4:22 PM Full Code 05/26/2016 8:43 AM 05/30/2016 3:51 PM Healthcare Agents on File Name Relationship Healthcare Agent Relationshi p Communication Merline Swan Other Primary Decision Maker Healthcare Agents on File Name Relationship Healthcare Agent Relationshi p Communication Merline Swan Other Primary Decision Maker Healthcare Agents on File Name Relationship Healthcare Agent Relationshi p Communication Merline Swan Other Primary Decision Maker Documents on File Type Date Recorded 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 Storage 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 Expl anation ACP-Advance Directive ACP-Power of Hydraulic Miner Latest Code Status on File Code Status Date Activated Date Inactivated Comments Full Code 03/20/2020 3:58 AM 03/26/2020 4:22 PM Full Code 05/26/2016 8:43 AM 05/30/2016 3:51 PM Healthcare Agents on File Name Relationship Healthcare Agent Relationshi p Communication Merline Swan Other Primary Decision Maker Healthcare Agents on File Name Relationship Healthcare Agent Relationshi p Communication Merline Swan Other Primary Decision Maker Latest Code Status on File Code Status Date Activated Date Inactivated Comments Full Code 03/20/2020 3:58 AM Healthcare Agents on File Name Relationship Healthcare Agent Relationshi p Communication Merline Swan Other Primary Decision Maker Healthcare Agents on File Name Relationship Healthcare Agent Relationshi p Communication Merline Swan Other Primary Decision Maker Healthcare Agents on File Name Relationship Healthcare Agent Relationshi p Communication Merline Swan Other Primary Decision Maker Healthcare Agents on File Name Relationship Healthcare Agent Relationshi p Communication Merline Swan Other Primary Decision Maker Healthcare Agents on File Name Relationship Healthcare Agent Relationshi p Communication Merline Swan Other Primary Decision Maker Healthcare Agents on File Name Relationship Healthcare Agent Relationshi p Communication Merline Swan Other Primary Decision Maker Healthcare Agents on File Name Relationship Healthcare Agent Relationshi p Communication Merline Swan Other Primary Decision Maker Healthcare Agents on File Name Relationship Healthcare Agent Relationshi p Communication Merline Swan Other Primary Decision Maker Latest Code Status on File Code Status Date Activated Date Inactivated Comments Full Code 03/20/2020 3:58 AM 03/26/2020 4:22 PM Code Status History Code Status Date Activated Date Inactivated Comments Full Code 05/26/2016 8:43 AM 05/30/2016 3:51 PM Healthcare Agents on File Name Relationship Healthcare Agent Relationshi p Communication Merline Swan Other Primary Decision Maker Latest Code Status on File Code Status Date Activated Date Inactivated Comments Full Code 06/26/2022 6:20 PM Code Status History Code Status Date Activated Date Inactivated Comments Full Code 03/20/2020 3:58 AM 03/26/2020 4:22 PM Full Code 05/26/2016 8:43 AM 05/30/2016 3:51 PM Healthcare Agents on File Name Relationship Healthcare Agent Sarahi p Communication Merline Swan Other Primary Decision Maker Latest Code Status on File Code Status Date Activated Date Inactivated Comments Full Code 06/26/2022 6:20 PM 06/30/2022 11:57 AM Healthcare Agents on File Name Relationship Healthcare Agent Sarahi p Communication Merline Swan Other Primary Decision Maker Latest Code Status on File Code Status Date Activated Date Inactivated Comments Full Code 06/26/2022 6:20 PM 06/30/2022 11:57 AM Code Status History Code Status Date Activated Date Inactivated Comments Full Code 03/20/2020 3:58 AM 03/26/2020 4:22 PM Full Code 05/26/2016 8:43 AM 05/30/2016 3:51 PM Healthcare Agents on File Name Relationship Healthcare Agent Sarahi p Siddharth Swan Other Primary Decision Maker Latest Code Status on File Code Status Date Activated Date Inactivated Comments Full Code 07/03/2023 5:50 PM Code Status History Code Status Date Activated Date Inactivated Comments Full Code 06/26/2022 6:20 PM 06/30/2022 11:57 AM Full Code 03/20/2020 3:58 AM 03/26/2020 4:22 PM Full Code 05/26/2016 8:43 AM 05/30/2016 3:51 PM Healthcare Agents on File Name Relationship Healthcare Agent Sarahi p Communication Merline Swan Other Secondary Decision Maker Andre Little Child Primary Decision Maker Discharge Instructions * Instructions* Festus Peace DPM - 05/16/2020 Take Home Instructions For Outpatient Surgery 1. No Bathing-- Keep clean and dry! 2. Use meds as directed. Dizziness and nausea is common from pain meds. Eat regularly to help prevent nausea. 3. Some discomfort and restlessness is common. 4. Swelling and bruising may occur and is normal. 5. Elevate at all times, at least waist high. 6. Do Not remove the Bandage! (For any Reason)- some bleeding may be seen through the bandage. 7. No Heat or hot water bottles until 2-3 wks. Postop. 8. To keep bandage neat and in place, wear a sock or stocking day and night. 9. Call me at once if you have heavy bleeding, severe pain or any urgent problem. 10. Please call office the day after surgery, to check in. 11. Use ice 20 minutes every 2 hours to foot or ankle during the 1st 3-4 days. 12. Up for food or bathroom only until your first postop office visit. 13. Surgical shoe Must be on for all activity and best to leave on at all times, unless icing or atrest.. 14. Any temp. over 101, call immediately. 15. No weight to foot.- knee scooter at all times. Office [phone] Dr. Peace documented in this encounter* Instructions* Pamela Garcia RN - 03/26/2020 Discharge Instructions: Continue Non-Weight Bearing to the R foot and use postop shoe. Take Doxycycline hyclate 100 MG capsule 2 times a day for 7 days Take Levaquin 500 mg tablet 1 time a day for 7 days. Follow up with Dr. Peace on 2020 at 10:15 am. * Attachments The following attachments cannot be sent through Care Everywhere. * Cellulitis (Namibian) documented in this encounter History of Present Illness * Eleonora Marin, DRAGAN - 05/16/2020 9:28 AM EST Discharge Criteria Outpatients must meet criteria 1 through 7. Up to restroom, void sufficient amount. Yes 1. Minimum 30 minutes after last dose of sedative medication, minimum 120 minutes after last dose of reversal agent. Yes 2. Systolic BP stable within 20 mmHg for 30 minutes & systolic BP between 90 & 180 or within 10 mmHg of baseline. Yes 3. Pulse between 60 and 100 or within 10 bpm of baseline. Yes 4. Spontaneous respiratory rate >/= 10 per minute. Yes 5. SaO2 >/= 95 or >/= baseline. Yes 6. Able to cough and swallow or return to baseline function. Yes 7. Alert and oriented or return to baseline mental status. Yes 8. Demonstrates controlled, coordinated movements, ambulates with steady gait, or return to baseline activity function. Yes 9. Minimal or no pain or nausea, or at a level tolerable and acceptable to patient. Yes 10. Takes and retains oral fluids as allowed. Yes 11. Procedural / perioperative site stable. Minimal or no bleeding. Yes 12. If GI endoscopy procedure, minimal or no abdominal distention or passing flatus. Yes 13. Written discharge instructions and emergency telephone number provided. Yes 14. Accompanied by a responsible adult. Yes Adult patient discharged from facility without responsible person meets above criteria plus the following: a) remains awake without stimulus for 30 minutes b) oriented appropriate for age c) all vital signs stable d) no significant risk of losing protective reflexes e) able to maintain pre-procedure mobility without assistance f) no nausea or dizziness g) transportation arrangements that do not require patient to operate motor Vehicle. Yes * Eleonora Marin RN - 05/16/2020 7:04 AM EST FSBS 120 documented in this encounter* Pamela Garcia RN - 03/26/2020 2:15 PM EST After further investigation, insulin found in ICU . Called patient no answer, called Merline, patient's girlfriend, she states she will be back in town on Saturday and will pick it up then, RN visual supervisor notified. * Pamela Garcia RN - 03/26/2020 12:50 PM EST Wound care education provided to girlfriend, Merline. Wound care completed, irrigated with normal saline, paint affected areas with iodine, covered with gauze and kerlix, wrapped with earl wrap. Discharge instructions given to patient and patient's girlfriend, Merline with special attention to medications and follow up appointments. Patient verbalizes understanding. Patient is asking about his personal insulin, girlfriend states a RN asked for her to bring in his insulin, girlfriend brought in insulin and gave in a RN and RN took insulin. This RN looks in medication drawer, no insulin found. Patient is eager to get home, this RN discharges patient and will look for insulin. * Pamela Garcia RN - 03/25/2020 1:40 PM EST Offered patient a sponge bath, patient refused, states maybe later on this evening. * Yulisa Ruiz LSW - 03/25/2020 1:11 PM EST SW met with pt this afternoon to discuss discharge planning again since pt's surgery. Pt scheduled to discharge to home tomorrow on oral antibiotics and with dressing changes and follow up with Dr Peace next week. Pt states that he is ready to go home and has no concerns or needs at this time. Pt states that they can manage the dressing changes independently. Pt reports that he has a walker at home he can use. No further needs expressed by pt. Plan for discharge to home tomorrow with girlfriend. Yulisa ORTIZ 03/25/2020 * Festus Peace DPM - 03/25/2020 11:48 AM EST Podiatry Progress Note SUBJECTIVE Afebrile, no complaints. Interested to incr activity OBJECTIVE Physical VITALS: BP 93/65 Pulse 88 Temp 98.5 F (36.9 C) (Oral) Resp 16 Ht 5' 10 (1.778 m) Wt 202 lb 1.6 oz (91.7 kg) SpO2 93% BMI 29.00 kg/m CONSTITUTIONAL: awake, alert, cooperative, no apparent distress, and appears stated age EXTREMITY: No calf or leg tenderness, soft. Wounds healthy margins, serous fluid on packing. Receding cellulitis and edema. Minimal bleeding in bandage.no odor, no new necrosis Data CBC with Differential: Lab Results Component Value Date WBC 5.9 03/22/2020 RBC 3.56 03/22/2020 HGB 10.5 03/22/2020 HCT 31.0 03/22/2020 PLT 247 03/22/2020 MCV 86.9 03/22/2020 MCH 29.5 03/22/2020 MCHC 33.9 03/22/2020 RDW 12.9 03/22/2020 LYMPHOPCT 26 03/22/2020 MONOPCT 8 03/22/2020 BASOPCT 1 03/22/2020 MONOSABS 0.50 03/22/2020 LYMPHSABS 1.50 03/22/2020 EOSABS 0.10 03/22/2020 BASOSABS 0.00 03/22/2020 DIFFTYPE YES 03/22/2020 BMP: Lab Results Component Value Date NA 137 03/24/2020 K 4.0 03/24/2020 CL 100 03/24/2020 CO2 27 03/24/2020 BUN 9 03/24/2020 LABALBU 3.8 03/20/2020 CREATININE 0.84 03/24/2020 CALCIUM 9.1 03/24/2020 GFRAA >60 03/24/2020 LABGLOM >60 03/24/2020 GLUCOSE 222 03/24/2020 Wound Culture: 03/20 multiple organisms with Group B strep and Staph Aureus predominant- no sensitivity. 03/21 and 03/23(surgical) showing only Strep,Staph and sensitivity pending Current Inpatient Medications Current Facility-Administered Medications: vancomycin (VANCOCIN) 500 MG injection, , , vancomycin (VANCOCIN) 1 g injection, , , S-[id number] 3-35-2 mg (METANX) capsule, 1 capsule, Oral, Daily lactobacillus (CULTURELLE) capsule 1 capsule, 1 capsule, Oral, BID WC insulin glargine (LANTUS) injection vial 10 Units, 10 Units, Subcutaneous, Nightly vancomycin (VANCOCIN) 1,500 mg in dextrose 5 % 500 mL IVPB, 1,500 mg, Intravenous, Q12H insulin glargine (LANTUS) injection vial 90 Units, 90 Units, Subcutaneous, QAM AC lisinopril (PRINIVIL;ZESTRIL) tablet 10 mg, 10 mg, Oral, Daily AND hydroCHLOROthiazide (HYDRODIURIL) tablet 12.5 mg, 12.5 mg, Oral, Daily amitriptyline (ELAVIL) tablet 25 mg, 25 mg, Oral, Nightly aspirin chewable tablet 81 mg, 81 mg, Oral, Daily atorvastatin (LIPITOR) tablet 40 mg, 40 mg, Oral, Daily DULoxetine (CYMBALTA) extended release capsule 60 mg, 60 mg, Oral, Daily ipratropium-albuterol (DUONEB) nebulizer solution 3 mL, 1 vial, Inhalation, Q4H PRN metFORMIN (GLUCOPHAGE) tablet 1,000 mg, 1,000 mg, Oral, BID WC pantoprazole (PROTONIX) tablet 40 mg, 40 mg, Oral, QAM AC pramipexole (MIRAPEX) tablet 0.5 mg, 0.5 mg, Oral, BID pregabalin (LYRICA) capsule 75 mg, 75 mg, Oral, TID budesonide-formoterol (SYMBICORT) 160-4.5 MCG/ACT inhaler 2 puff, 2 puff, Inhalation, BID sodium chloride flush 0.9 % injection 10 mL, 10 mL, Intravenous, 2 times per day sodium chloride flush 0.9 % injection 10 mL, 10 mL, Intravenous, PRN promethazine (PHENERGAN) tablet 12.5 mg, 12.5 mg, Oral, Q6H PRN OR ondansetron (ZOFRAN) injection 4 mg, 4 mg, Intravenous, Q6H PRN polyethylene glycol (GLYCOLAX) packet 17 g, 17 g, Oral, Daily PRN acetaminophen (TYLENOL) tablet 650 mg, 650 mg, Oral, Q6H PRN OR acetaminophen (TYLENOL) suppository 650 mg, 650 mg, Rectal, Q6H PRN piperacillin-tazobactam (ZOSYN) 3.375 g in dextrose 5 % 50 mL IVPB extended infusion (mini-bag), 3.375 g, Intravenous, Q8H glucose (GLUTOSE) 40 % oral gel 15 g, 15 g, Oral, PRN dextrose 50 % IV solution, 12.5 g, Intravenous, PRN glucagon (rDNA) injection 1 mg, 1 mg, Intramuscular, PRN dextrose 5 % solution, 100 mL/hr, Intravenous, PRN insulin lispro (HUMALOG) injection vial 0-6 Units, 0-6 Units, Subcutaneous, TID WC insulin lispro (HUMALOG) injection vial 0-3 Units, 0-3 Units, Subcutaneous, Nightly vancomycin (VANCOCIN) intermittent dosing (placeholder), , Other, RX Placeholder traMADol (ULTRAM) tablet 50 mg, 50 mg, Oral, Q6H PRN ASSESSMENT AND PLAN Stable, good progress cellulitis and infection. Wounds stable and Packing changed, reduced with dilute betadine irrigation, DSD. Cont NWB x 3wk. PT consult, postop shoe. Add Metanx evie for d/c and oral AB likely focus on B strep,S Aureus- sensitivity pending July d/c to home tomorrow after Vanco dose, NWB Oral AB and qd -Qod betadine drsg depending on drainage. No Packing Will send Rx for Metanx and waiting on sensitivty for choice of dual agent oral therapy for likely Strep/Staph * Pamela Garcia RN - 03/25/2020 8:[address] Peace at bedside, wound care completed by Dr. Peace, new orders received on wound care, Dr. Peace would like to see patient in next week appointment made for 03/31/2020, potential discharge tomorrow after lunch. * Kiet Farah MD - 03/25/2020 7:42 AM EST Hospitalist Progress Note 03/25/2020 7:42 AM Subjective: Admit Date: 03/19/2020 PCP: Sara Lester DO Interval History: The patient states that he is doing well, has no complaints. Reports no pain, no cough, no nausea/vomiting, no diarrhea. Diet: DIET CARB CONTROL; Dietary Nutrition Supplements: Diabetic Oral Supplement Dietary Nutrition Supplements: Wound Healing Oral Supplement Medications: Scheduled Meds: vancomycin vancomycin lactobacillus 1 capsule Oral BID WC insulin glargine 10 Units Subcutaneous Nightly vancomycin 1,500 mg Intravenous Q12H insulin glargine 90 Units Subcutaneous QAM AC lisinopril 10 mg Oral Daily And hydroCHLOROthiazide 12.5 mg Oral Daily amitriptyline 25 mg Oral Nightly aspirin 81 mg Oral Daily atorvastatin 40 mg Oral Daily DULoxetine 60 mg Oral Daily metFORMIN 1,000 mg Oral BID WC pantoprazole 40 mg Oral QAM AC pramipexole 0.5 mg Oral BID pregabalin 75 mg Oral TID budesonide-formoterol 2 puff Inhalation BID sodium chloride flush 10 mL Intravenous 2 times per day piperacillin-tazobactam 3.375 g Intravenous Q8H insulin lispro 0-6 Units Subcutaneous TID WC insulin lispro 0-3 Units Subcutaneous Nightly vancomycin (VANCOCIN) intermittent dosing (placeholder) Other RX Placeholder Continuous Infusions: dextrose PRN Medications: ipratropium-albuterol, sodium chloride flush, promethazine OR ondansetron, polyethylene glycol, acetaminophen OR acetaminophen, glucose, dextrose, glucagon (rDNA), dextrose, traMADol Objective: Vitals: BP 93/65 Pulse 88 Temp 98.5 F (36.9 C) (Oral) Resp 16 Ht 5' 10 (1.778 m) Wt 202 lb 1.6 oz (91.7 kg) SpO2 95% BMI 29.00 kg/m BMI: Body mass index is 29 kg/m . CBC: No results for input(s): WBC, HGB, PLT in the last 72 hours. BMP: Recent Labs 03/23/20 0540 03/24/20 0600 NA 136 137 K 3.6* 4.0 CL 100 100 CO2 26 27 BUN 12 9 CREATININE 0.90 0.84 GLUCOSE 227* 222* Physical Exam: General Appearance: Patient is awake, alert, no distress Cardiovascular: normal rate, regular rhythm, normal S1 and S2, no murmurs Pulmonary/Chest: Clear to auscultation bilaterally, no wheezing Abdomen: soft, non-tender, non-distended, normal bowel sounds Extremities: Right foot dressed, left lower extremity no edema Skin: warm and dry, no rash Neurological: alert, oriented, normal speech, no focal findings or movement disorder noted Assessment and Plan: 1. 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 Peace, on IV vancomycin and Zosyn. Wound culture mixed virgen including gram-positive cocci, gram-negative rods, strep beta-hemolytic group B heavy growth and moderate staph aureus.Await further recommendations by . 2. Diabetes mellitus type 2, insulin-dependent uncontrolled - HbA1C 14%, on lantus 90 u daily, lantus 10 u bedtime, on sliding scale lispro, Metformin 3. Mild hypokalemia - replaced 4. Hypertension -blood pressure stable, on lisinopril- HCTZ, 5. Diabetic neuropathy - on Lyrica 6. Acute on chronic anemia -hemoglobin dropped from baseline, most likely dilutional. 7. GERD -on Protonix 8. Restless leg syndrome -on Mirapex 9. Depression -mood is stable, continue on Cymbalta Patient continues to require inpatient admission related to need for IV antibiotics and wound care Rounding Hospitalist * Kiet Farah MD - 03/24/2020 6:35 AM EST Hospitalist Progress Note 03/24/2020 6:35 AM Subjective: Admit Date: 03/19/2020 PCP: Sara Lester DO Interval History: Mr. Little states he is doing well., reports no pain, no nausea, no vomiting, no diarrhea Diet: DIET CARB CONTROL; Dietary Nutrition Supplements: Diabetic Oral Supplement Dietary Nutrition Supplements: Wound Healing Oral Supplement Medications: Scheduled Meds: lactobacillus 1 capsule Oral BID WC vancomycin 1,500 mg Intravenous Q12H insulin glargine 90 Units Subcutaneous QAM AC lisinopril 10 mg Oral Daily And hydroCHLOROthiazide 12.5 mg Oral Daily amitriptyline 25 mg Oral Nightly aspirin 81 mg Oral Daily atorvastatin 40 mg Oral Daily DULoxetine 60 mg Oral Daily metFORMIN 1,000 mg Oral BID WC pantoprazole 40 mg Oral QAM AC pramipexole 0.5 mg Oral BID pregabalin 75 mg Oral TID budesonide-formoterol 2 puff Inhalation BID sodium chloride flush 10 mL Intravenous 2 times per day piperacillin-tazobactam 3.375 g Intravenous Q8H insulin lispro 0-6 Units Subcutaneous TID WC insulin lispro 0-3 Units Subcutaneous Nightly vancomycin (VANCOCIN) intermittent dosing (placeholder) Other RX Placeholder Continuous Infusions: dextrose PRN Medications: ipratropium-albuterol, sodium chloride flush, promethazine OR ondansetron, polyethylene glycol, acetaminophen OR acetaminophen, glucose, dextrose, glucagon (rDNA), dextrose, traMADol Objective: Vitals: BP 117/72 Pulse 91 Temp 98.2 F (36.8 C) (Oral) Resp 16 Ht 5' 10 (1.778 m) Wt 202lb 1.6 oz (91.7 kg) SpO2 96% BMI 29.00 kg/m BMI: Body mass index is 29 kg/m . CBC: Recent Labs 03/22/20 0550 WBC 5.9 HGB 10.5* PLT 247 BMP: Recent Labs 03/22/20 0550 03/23/20 0540 03/24/20 0600 NA 136 136 137 K 3.6* 3.6* 4.0 CL 100 100 100 CO2 29 26 27 BUN 9 12 9 CREATININE 0.78 0.90 0.84 GLUCOSE 193* 227* 222* Physical Exam: General Appearance: Awake, alert, watching TV this morning. Cardiovascular: normal rate, regular rhythm, normal S1 and S2, no murmurs Pulmonary/Chest: clear to auscultation bilaterally- no wheezes, rales or rhonchi Abdomen: soft, non-tender, non-distended, normal bowel sounds Extremities: Right foot dressed, left lower extremity no edema Skin: warm and dry, no rash Neurological: alert, oriented, normal speech, no focal findings or movement disorder noted Assessment and Plan: 1. 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 Peace, continue on IV vancomycin and Zosyn. Wound culture preliminary with mixedflora including gram-positive cocci, gram-negative rods, strep beta-hemolytic group B heavy growth and moderate staph aureus. 2. Diabetes mellitus type 2, insulin-dependent uncontrolled - HbA1C 14%, on lantus 90 u daily, add lantus 10 u bedtime, on sliding scale lispro, Metformin 3. Mild hypokalemia - replaced 4. Hypertension -blood pressure stable, on lisinopril- HCTZ, 5. Diabetic neuropathy - on Lyrica 6. Acute on chronic anemia -hemoglobin dropped from baseline, most likely dilutional. 7. GERD -on Protonix 8. Restless leg syndrome -on Mirapex 9. Depression -mood is stable, continue on Cymbalta Patient continues to require inpatient admission related to need for IV antibiotics, wound care Rounding Hospitalist * Stella Soares RD, LD - 03/23/2020 1:08 PM EST Nutrition Assessment Type and Reason for Visit: Reassess Nutrition Recommendations/Plan: 1. Continue current diet. 2. Continue current ONS and Mynor (resumed after surgery). 3. Encouraged protein foods for healing needs. 4. Recommend probiotic due to ATB therapy. 5. Continue to support MVI w/minerals addition to aid healing needs. Nutrition Assessment: Continued increased nutrient needs aeb s/p amputation of 3rd/5th toes on R foot due to osteomyelitis. PO has been good of meals and supplements. MVI w/minerals not added yet. Recommend probiotic due to ATB therapy. Pt denied any diet education questions. Encouraged to eat highprotein foods to aid healing, Pt acknowledged understanding. Malnutrition Assessment: Malnutrition Status: At risk for malnutrition (Comment) Estimated Daily Nutrient Needs: Energy (kcal): 8628-9465(18-23); Weight Used for Energy Requirements: Current Protein (g): 98-113(1.3-1.5); Weight Used for Protein Requirements: [place] Fluid (ml/day): 2100+; Weight Used for Fluid Requirements: 1 ml/kcal Nutrition Related Findings: overweight with 2 foot wounds Current Nutrition Therapies: DIET CARB CONTROL; Anthropometric Measures: Height: 5' 10 (177.8 cm) Current Body Wt: 202 lb 1.6 oz (91.7 kg) BMI: 29 Nutrition Diagnosis: Increased nutrient needs related to acute injury/trauma as evidenced by wounds Nutrition Interventions: Food and/or Nutrient Delivery: Continue Current Diet, Continue Oral Nutrition Supplement Nutrition Education/Counseling: No recommendation at this time Coordination of Nutrition Care: Continue to monitor while inpatient Goals: PO >75% meals and supplements Recent Labs 03/21/20 0550 03/22/20 0550 03/23/20 0540 NA 135 136 136 K 3.3* 3.6* 3.6* CL 100 100 100 CO2 27 29 26 BUN 7 9 12 CREATININE 0.80 0.78 0.90 GLUCOSE 160* 193* 227* GFR NOT REPORTED NOT REPORTED NOT REPORTED Lab Results Component Value Date LABALBU 3.8 03/20/2020 Recent Labs 03/21/20 1655 03/21/20 2058 03/22/20 0719 03/22/20 1126 03/22/20 1702 03/22/20 2037 03/23/20 0750 03/23/20 1142 POCGLU 202* 150* 174* 196* 170* 200* 173* 118* Nutrition Monitoring and Evaluation: Behavioral-Environmental Outcomes: Knowledge or Skill Food/Nutrient Intake Outcomes: Food and Nutrient Intake, Supplement Intake Physical Signs/Symptoms Outcomes: Biochemical Data, Skin, Weight Discharge Planning: Continue current diet, Continue Oral Nutrition Supplement Contact: [phone] * Anton Duran RN - 03/23/2020 10:28 AM EST Returns from surgery. Vitals WNL, affected foot elevated on 2 pillows. Call light in reach. * Kiet Farah MD - 03/23/2020 10:24 AM EST Hospitalist Progress Note 03/23/2020 10:24 AM Subjective: Admit Date: 03/19/2020 PCP: Sara Lester DO Interval History: The patient states that he is doing well. Has no complaints. This morning he underwent amputation of the third and fifth toes. Reports no pain in the foot. Denies having any headaches, shortness of breath, cough, nausea/vomiting, diarrhea Diet: Diet NPO, After Midnight Medications: Scheduled Meds: [MAY Hold] vancomycin 1,500 mg Intravenous Q12H [MAY Hold] insulin glargine 90 Units Subcutaneous QAM AC [May] lisinopril 10 mg Oral Daily And [MAY Hold] hydroCHLOROthiazide 12.5 mg Oral Daily [MAY Hold] amitriptyline 25 mg Oral Nightly [MAY Hold] aspirin 81 mg Oral Daily [MAY Hold] atorvastatin 40 mg Oral Daily [MAY Hold] DULoxetine 60 mg Oral Daily [MAY Hold] metFORMIN 1,000 mg Oral BID WC [MAY Hold] pantoprazole 40 mg Oral QAM AC [MAY Hold] pramipexole 0.5 mg Oral BID [MAY Hold] pregabalin 75 mg Oral TID [MAY Hold] budesonide-formoterol 2 puff Inhalation BID [MAY Hold] sodium chloride flush 10 mL Intravenous 2 times per day [MAY Hold] enoxaparin 40 mg Subcutaneous Daily [MAY Hold] piperacillin-tazobactam 3.375 g Intravenous Q8H [MAY Hold] insulin lispro 0-6 Units Subcutaneous TID WC [MAY Hold] insulin lispro 0-3 Units Subcutaneous Nightly [MAY Hold] vancomycin (VANCOCIN) intermittent dosing (placeholder) Other RX Placeholder Continuous Infusions: [MAY Hold] dextrose PRN Medications: [MAY Hold] ipratropium-albuterol, [MAY Hold] sodium chloride flush, [MAY Hold] promethazine OR [MAY Hold] ondansetron, [MAY Hold] polyethylene glycol, [MAY Hold] acetaminophen OR [MAY Hold] acetaminophen, [MAY Hold] glucose, [MAY Hold] dextrose, [MAY Hold] glucagon (rDNA), [MAY Hold] dextrose, [MAY Hold] traMADol Objective: Vitals: BP (!) 88/58 Pulse 90 Temp 97.1 F (36.2 C) (Temporal) Resp 22 Ht 5' 10 (1.778 m) Wt 202 lb 1.6 oz (91.7 kg) SpO2 94% BMI 29.00 kg/m BMI: Body mass index is 29 kg/m . CBC: Recent Labs 03/21/20 0550 03/22/20 0550 WBC 7.5 5.9 HGB 10.3* 10.5* PLT 221 247 BMP: Recent Labs 03/21/20 0550 03/22/20 0550 03/23/20 0540 NA 135 136 136 K 3.3* 3.6* 3.6* CL 100 100 100 CO2 27 29 26 BUN 7 9 12 CREATININE 0.80 0.78 0.90 GLUCOSE 160* 193* 227* Physical Exam: General Appearance: alert and oriented to person, place and time, in no acute distress Cardiovascular: normal rate, regular rhythm, normal S1 and S2, no murmurs Pulmonary/Chest: clear to auscultation bilaterally- no wheezes, rales or rhonchi Abdomen: soft, non-tender, non-distended, normal bowel sounds Extremities: Right foot dressed Skin: warm and dry, no rash Neurological: alert, oriented, normal speech, no focal findings or movement disorder noted Assessment and Plan: 1. Right foot ulcer stage IV, osteomyelitis and cellulitis -s/p amputation of the third and fifth toe this morning, continue on IV vancomycin and Zosyn. Wound culture preliminary with mixed virgen including gram-positive cocci, gram- negative rods, strep beta-hemolytic group B heavy growth and moderate staph aureus. Appreciate 's help 2. Diabetes mellitus type 2, insulin-dependent uncontrolled - on insulin degludec 90 units daily, sliding scale lispro, Metformin 3. Mild hypokalemia - replace 4. Hypertension -blood pressure stable, on lisinopril- HCTZ, 5. Diabetic neuropathy -on Lyrica 6. Acute on chronic anemia -hemoglobin dropped from baseline, most likely dilutional. 7. GERD -on Protonix 8. Restless leg syndrome -on Mirapex 9. Depression -mood is stable, continue on Cymbalta Patient continues to require inpatient admission related to need for IV antibiotics, wound care Rounding Hospitalist * Anton Duran RN - 03/23/2020 8:26 AM EST MARISSA to surgery. * Festus Peace DPM - 03/23/2020 7:53 AM EST Podiatry Progress Note SUBJECTIVE Ready for surgery , no new complaints and feeling good. OBJECTIVE Physical VITALS: BP 94/62 Pulse 94 Temp 98.5 F (36.9 C) (Oral) Resp 18 Ht 5' 10 (1.778 m) Wt 202 lb 1.6 oz (91.7 kg) SpO2 92% BMI 29.00 kg/m CONSTITUTIONAL: awake, alert, cooperative, no apparent distress, and appears stated age CARDIOVASCULAR: regular rate and rhythm EXTREMITY: Necrotic wounds sub5 and sub 3rt- reduced cellulitis Data CBC with Differential: Lab Results Component Value Date WBC 5.9 03/22/2020 RBC 3.56 03/22/2020 HGB 10.5 03/22/2020 HCT 31.0 03/22/2020 PLT 247 03/22/2020 MCV 86.9 03/22/2020 MCH 29.5 03/22/2020 MCHC 33.9 03/22/2020 RDW 12.9 03/22/2020 LYMPHOPCT 26 03/22/2020 MONOPCT 8 03/22/2020 BASOPCT 1 03/22/2020 MONOSABS 0.50 03/22/2020 LYMPHSABS 1.50 03/22/2020 EOSABS 0.10 03/22/2020 BASOSABS 0.00 03/22/2020 DIFFTYPE YES 03/22/2020 BMP: Lab Results Component Value Date NA 136 03/23/2020 K 3.6 03/23/2020 CL 100 03/23/2020 CO2 26 03/23/2020 BUN 12 03/23/2020 LABALBU 3.8 03/20/2020 CREATININE 0.90 03/23/2020 CALCIUM 9.9 03/23/2020 GFRAA >60 03/23/2020 LABGLOM >60 03/23/2020 GLUCOSE 227 03/23/2020 Current Inpatient Medications Current Facility-Administered Medications: [MAY Hold] vancomycin (VANCOCIN) 1,500 mg in dextrose 5 % 500 mL IVPB, 1,500 mg, Intravenous, Q12H [MAY Hold] insulin glargine (LANTUS) injection vial 90 Units, 90 Units, Subcutaneous, QAM AC [MAY Hold] lisinopril (PRINIVIL;ZESTRIL) tablet 10 mg, 10 mg, Oral, Daily AND [MAY Hold] hydroCHLOROthiazide (HYDRODIURIL) tablet 12.5 mg, 12.5 mg, Oral, Daily [MAY Hold] amitriptyline (ELAVIL) tablet 25 mg, 25 mg, Oral, Nightly [MAY Hold] aspirin chewable tablet 81 mg, 81 mg, Oral, Daily [MAY Hold] atorvastatin (LIPITOR) tablet 40 mg, 40 mg, Oral, Daily [MAY Hold] DULoxetine (CYMBALTA) extended release capsule 60 mg, 60 mg, Oral, Daily [MAY Hold] ipratropium-albuterol (DUONEB) nebulizer solution 3 mL, 1 vial, Inhalation, Q4H PRN [MAY Hold] metFORMIN (GLUCOPHAGE) tablet 1,000 mg, 1,000 mg, Oral, BID WC [MAY Hold] pantoprazole (PROTONIX) tablet 40 mg, 40 mg, Oral, QAM AC [MAY Hold] pramipexole (MIRAPEX) tablet 0.5 mg, 0.5 mg, Oral, BID [MAY Hold] pregabalin (LYRICA) capsule 75 mg, 75 mg, Oral, TID [MAY Hold] budesonide-formoterol (SYMBICORT) 160-4.5 MCG/ACT inhaler 2 puff, 2 puff, Inhalation, BID [May] sodium chloride flush 0.9 % injection 10 mL, 10 mL, Intravenous, 2 times per day [MAY Hold] sodium chloride flush 0.9 % injection 10 mL, 10 mL, Intravenous, PRN [May] enoxaparin (LOVENOX) injection 40 mg, 40 mg, Subcutaneous, Daily [MAY Hold] promethazine (PHENERGAN) tablet 12.5 mg, 12.5 mg, Oral, Q6H PRN OR [MAY Hold] ondansetron (ZOFRAN) injection 4 mg, 4 mg, Intravenous, Q6H PRN [MAY Hold] polyethylene glycol (GLYCOLAX) packet 17 g, 17 g, Oral, Daily PRN [MAY Hold] acetaminophen (TYLENOL) tablet 650 mg, 650 mg, Oral, Q6H PRN OR [MAY Hold] acetaminophen (TYLENOL) suppository 650 mg, 650 mg, Rectal, Q6H PRN [MAR Hold] piperacillin-tazobactam (ZOSYN) 3.375 g in dextrose 5 % 50 mL IVPB extended infusion (mini-bag), 3.375 g, Intravenous, Q8H [MAR Hold] glucose (GLUTOSE) 40 % oral gel 15 g, 15 g, Oral, PRN [MAY Hold] dextrose 50 % IV solution, 12.5 g, Intravenous, PRN [MAY Hold] glucagon (rDNA) injection 1 mg, 1 mg, Intramuscular, PRN [MAR Hold] dextrose 5 % solution, 100 mL/hr, Intravenous, PRN [MAY Hold] insulin lispro (HUMALOG) injection vial 0-6 Units, 0-6 Units, Subcutaneous, TID WC [MAY Hold] insulin lispro (HUMALOG) injection vial 0-3 Units, 0-3 Units, Subcutaneous, Nightly [MAY Hold] vancomycin (VANCOCIN) intermittent dosing (placeholder), , Other, RX Placeholder [MAY Hold] traMADol (ULTRAM) tablet 50 mg, 50 mg, Oral, Q6H PRN Facility-Administered Medications Ordered in Other Encounters: fentaNYL (SUBLIMAZE) injection, , , PRN midazolam PF (VERSED) injection, , , PRN 0.9 % sodium chloride infusion, , , Continuous PRN ASSESSMENT AND PLAN DM foot infection, early osteo and amp 3,5 with I&D planned Risk and recovery reviewed along with postop care * Rubens Wheeler RN - 03/23/2020 6:18 AM EST Pt wiped down with wipes and placed in gown for surgery. Extension tubing added to fluids and ATB running at this time. EKG stickers on and BP cuff on right arm. Pt denies any needs at the moment. * Ana Ellis RN - 03/22/2020 3:25 PM EST DIABETES EDUCATION Labs: Lab Results Component Value Date LABA1C 14.0 (H) 03/20/2020 LABA1C 8.7 (H) 03/12/2019 LABA1C 14 01/20/2019 Lab Results Component Value Date LABMICR CANNOT BE CALCULATED 10/20/2018 CREATININE 0.78 03/22/2020 Met with pt for approx 30 minutes for inpatient diabetes education. Pt has been diabetic for about20 years. He does not follow a diabetic diet and had been drinking regular pop until his girlfriend stopped buying it. Pt takes his diabetes medications most of the time but misses his second dose of metformin about twice a week. Pt states he stepped on a railroad spike 2-3 weeks ago and was trying to care for the wound himself, and it became infected. States this is a wake up call for him and he intends to manage his diabetes better. He monitors his blood sugar twice a week with AM readings in the 200's. Encouraged to monitor more often and to keep a log. Discussed SAFE handouts including hyper/hypoglycemia symptoms and proper treatment. Briefly discussed healthy eating and basic carbohydrate counting. [facility] dietitian was in to see him yesterday. Outpatient diabetes education offered to pt. Denies further questions. Provided with contact number and encouraged to call with questions or concerns. Did Dietitian see patient? [x] Yes [] No Does patient have a monitor and strips? [x] Yes [] No Frequency of monitoring at home: 2 x /week Can patient afford medications? [x] Yes [] No Medication taking at home: [x] Oral medication [x] Insulin [x] Other [] None New to insulin? [] Yes [x] No Instructed on insulin use? [] Yes [x] No [] N/A SAFE HANDOUTS: [x] Where do I Begin? booklet [x] What is Diabetes? [x] What is Insulin? [x] Hypo- hyperglycemia [x] Diabetes pills [x] How to Check your sugar [x] Be safe with needles [x] Sick Days with Diabetes [x] When to Call the Doctor [] Other [] Type 2 DM and adding Insulin [x] Carbohydrate Counting for People with Diabetes * Briana Eason RN - 03/22/2020 11:09 AM EST Surgery scheduled for around 9 am tomorrow morning with Dr. Bohach. Consent signed and placed in chart. * Festus Peace DPM - 03/22/2020 10:44 AM EST Podiatry Progress Note SUBJECTIVE Feeling good, no fever, belly pain, foot pain OBJECTIVE Physical VITALS: BP 114/65 Pulse 99 Temp 98.3 F (36.8 C) (Oral) Resp 16 Ht 5' 10 (1.778 m) Wt 205lb 1.6 oz (93 kg) SpO2 98% BMI 29.43 kg/m CONSTITUTIONAL: awake, alert, cooperative, no apparent distress, and appears stated age EXTREMITY: wounds little change, reduced swelling, cellulitis Data CBC with Differential: Lab Results Component Value Date WBC 5.9 03/22/2020 RBC 3.56 03/22/2020 HGB 10.5 03/22/2020 HCT 31.0 03/22/2020 PLT 247 03/22/2020 MCV 86.9 03/22/2020 MCH 29.5 03/22/2020 MCHC 33.9 03/22/2020 RDW 12.9 03/22/2020 LYMPHOPCT 26 03/22/2020 MONOPCT 8 03/22/2020 BASOPCT 1 03/22/2020 MONOSABS 0.50 03/22/2020 LYMPHSABS 1.50 03/22/2020 EOSABS 0.10 03/22/2020 BASOSABS 0.00 03/22/2020 DIFFTYPE YES 03/22/2020 BMP: Lab Results Component Value Date NA 136 03/22/2020 K 3.6 03/22/2020 CL 100 03/22/2020 CO2 29 03/22/2020 BUN 9 03/22/2020 LABALBU 3.8 03/20/2020 CREATININE 0.78 03/22/2020 CALCIUM 9.6 03/22/2020 GFRAA >60 03/22/2020 LABGLOM >60 03/22/2020 GLUCOSE 193 03/22/2020 Wound Culture: Multiple organisms, sensitivity pending Radiology Review: MRI early Osteomyelitis 3,5 toes Current Inpatient Medications Current Facility-Administered Medications: vancomycin (VANCOCIN) 1,500 mg in dextrose 5 % 500 mL IVPB, 1,500 mg, Intravenous, Q12H insulin glargine (LANTUS) injection vial 90 Units, 90 Units, Subcutaneous, QAM AC lisinopril (PRINIVIL;ZESTRIL) tablet 10 mg, 10 mg, Oral, Daily AND hydroCHLOROthiazide (HYDRODIURIL) tablet 12.5 mg, 12.5 mg, Oral, Daily amitriptyline (ELAVIL) tablet 25 mg, 25 mg, Oral, Nightly aspirin chewable tablet 81 mg, 81 mg, Oral, Daily atorvastatin (LIPITOR) tablet 40 mg, 40 mg, Oral, Daily DULoxetine (CYMBALTA) extended release capsule 60 mg, 60 mg, Oral, Daily ipratropium-albuterol (DUONEB) nebulizer solution 3 mL, 1 vial, Inhalation, Q4H PRN metFORMIN (GLUCOPHAGE) tablet 1,000 mg, 1,000 mg, Oral, BID WC pantoprazole (PROTONIX) tablet 40 mg, 40 mg, Oral, QAM AC pramipexole (MIRAPEX) tablet 0.5 mg, 0.5 mg, Oral, BID pregabalin (LYRICA) capsule 75 mg, 75 mg, Oral, TID budesonide-formoterol (SYMBICORT) 160-4.5 MCG/ACT inhaler 2 puff, 2 puff, Inhalation, BID sodium chloride flush 0.9 % injection 10 mL, 10 mL, Intravenous, 2 times per day sodium chloride flush 0.9 % injection 10 mL, 10 mL, Intravenous, PRN enoxaparin (LOVENOX) injection 40 mg, 40 mg, Subcutaneous, Daily promethazine (PHENERGAN) tablet 12.5 mg, 12.5 mg, Oral, Q6H PRN OR ondansetron (ZOFRAN) injection 4 mg, 4 mg, Intravenous, Q6H PRN polyethylene glycol (GLYCOLAX) packet 17 g, 17 g, Oral, Daily PRN acetaminophen (TYLENOL) tablet 650 mg, 650 mg, Oral, Q6H PRN OR acetaminophen (TYLENOL) suppository 650 mg, 650 mg, Rectal, Q6H PRN piperacillin-tazobactam (ZOSYN) 3.375 g in dextrose 5 % 50 mL IVPB extended infusion (mini-bag), 3.375 g, Intravenous, Q8H glucose (GLUTOSE) 40 % oral gel 15 g, 15 g, Oral, PRN dextrose 50 % IV solution, 12.5 g, Intravenous, PRN glucagon (rDNA) injection 1 mg, 1 mg, Intramuscular, PRN dextrose 5 % solution, 100 mL/hr, Intravenous, PRN insulin lispro (HUMALOG) injection vial 0-6 Units, 0-6 Units, Subcutaneous, TID WC insulin lispro (HUMALOG) injection vial 0-3 Units, 0-3 Units, Subcutaneous, Nightly vancomycin (VANCOCIN) intermittent dosing (placeholder), , Other, RX Placeholder traMADol (ULTRAM) tablet 50 mg, 50 mg, Oral, Q6H PRN ASSESSMENT AND PLAN DM foot infection stable, improving, reduced WBC. MRI sugg osteo 3,5 toes. Wounds need OR debridement and toe amp 3,5 planned tomorrow.Risks and recovery discussed. Consent reviewed. May need 2-3 days IVAB postop and home on orals, pending C&S results. NWB planned 2-3 wk * Kiet Farah MD - 03/22/2020 8:12 AM EST Hospitalist Progress Note 03/22/2020 8:12 AM Subjective: Admit Date: 03/19/2020 PCP: Sara Lester DO Interval History: Mr. Ltitle states he is doing well, has no complaints. Denies having pain in the foot. Eating breakfast. Reports no nausea/vomiting, no diarrhea. Diet: DIET CARB CONTROL; Dietary Nutrition Supplements: Wound Healing Oral Supplement Dietary Nutrition Supplements: Diabetic Oral Supplement Medications: Scheduled Meds: vancomycin 1,500 mg Intravenous Q12H insulin glargine 90 Units Subcutaneous QAM AC lisinopril 10 mg Oral Daily And hydroCHLOROthiazide 12.5 mg Oral Daily amitriptyline 25 mg Oral Nightly aspirin 81 mg Oral Daily atorvastatin 40 mg Oral Daily DULoxetine 60 mg Oral Daily metFORMIN 1,000 mg Oral BID WC pantoprazole 40 mg Oral QAM AC pramipexole 0.5 mg Oral BID pregabalin 75 mg Oral TID budesonide-formoterol 2 puff Inhalation BID sodium chloride flush 10 mL Intravenous 2 times per day enoxaparin 40 mg Subcutaneous Daily piperacillin-tazobactam 3.375 g Intravenous Q8H insulin lispro 0-6 Units Subcutaneous TID WC insulin lispro 0-3 Units Subcutaneous Nightly vancomycin (VANCOCIN) intermittent dosing (placeholder) Other RX Placeholder Continuous Infusions: dextrose PRN Medications: ipratropium-albuterol, sodium chloride flush, promethazine OR ondansetron, polyethylene glycol, acetaminophen OR acetaminophen, glucose, dextrose, glucagon (rDNA), dextrose, traMADol Objective: Vitals: BP 114/65 Pulse 99 Temp 98.3 F (36.8 C) (Oral) Resp 16 Ht 5' 10 (1.778 m) Wt 205lb 1.6 oz (93 kg) SpO2 99% BMI 29.43 kg/m BMI: Body mass index is 29.43 kg/m . CBC: Recent Labs 03/20/20 0045 03/21/20 0550 03/22/20 0550 WBC 11.5* 7.5 5.9 HGB 11.8* 10.3* 10.5* PLT 253 221 247 BMP: Recent Labs 03/20/20 0045 03/21/20 0550 03/22/20 0550 NA 134* 135 136 K 3.6* 3.3* 3.6* CL 97* 100 100 CO2 27 27 29 BUN 10 7 9 CREATININE 0.94 0.80 0.78 GLUCOSE 244* 160* 193* Hepatic: Recent Labs 03/20/20 0045 AST 13 ALT 11 BILITOT 1.33* ALKPHOS 121 Physical Exam: General Appearance: alert and oriented to person, place and time, in no acute distress Cardiovascular: normal rate, regular rhythm, normal S1 and S2, no murmurs Pulmonary/Chest: clear to auscultation bilaterally- no wheezes, rales or rhonchi, normal air movement, no respiratory distress Abdomen: soft, non-tender, non-distended, normal bowel sounds Extremities: Right foot dressed Skin: warm and dry, no rash Neurological: alert, oriented, normal speech, no focal findings or movement disorder noted Assessment and Plan: 1. Right foot ulcer stage IV and cellulitis - continue on IV vancomycin and Zosyn. Wound culture preliminary with mixed virgen including gram-positive cocci, gram-negative rods, strep beta-hemolytic group B heavy growth and moderate staph aureus. Patient was evaluated by product safety expert Dr. Peace, had bedside debridement. Had MRI of the foot revealing 1.5 cm skin wound/ulcer plantar to the third proximal phalanx with early osteomyelitis throughout the third proximal phalanx. Early osteomyelitis in the fifth proximal phalanx. Await further recommendations by 2. Diabetes mellitus type 2, insulin-dependent uncontrolled -insulin degludec 90 units daily, sliding scale lispro, Metformin 3. Mild hypokalemia -will replace 4. Hypertension -continue on lisinopril HCTZ, 5. Diabetic neuropathy -on Lyrica 6. Acute on chronic anemia -hemoglobin dropped from baseline, most likely dilutional. 7. GERD -on Protonix 8. Restless leg syndrome -on Mirapex 9. Depression -mood is stable, continue on Cymbalta Patient continues to require inpatient admission related to need for IV antibiotics, podiatry evaluation Rounding Hospitalist * Wellington Cohen, [facility] - 03/22/2020 1:06 AM EST Pharmacy Vancomycin Consult Vancomycin Day: 3 Current Dosin mg every 12 hours Temp max: 98.7 Recent Labs 03/20/20 0045 03/21/20 0550 BUN 10 7 Recent Labs 03/20/20 0045 03/21/20 0550 CREATININE 0.94 0.80 Recent Labs 03/20/20 0045 03/21/20 0550 WBC 11.5* 7.5 Intake/Output Summary (Last 24 hours) at 03/22/2020 0102 Last data filed at 03/21/2020 2250 Gross per 24 hour Intake 1390 ml Output 2000 ml Net -610 ml Culture Date Source Results Ht Readings from Last 1 Encounters: 03/21/20 5' 10 (1.778 m) Wt Readings from Last 1 Encounters: 03/21/20 204 lb 3.2 oz (92.6 kg) Body mass index is 29.3 kg/m . Estimated Creatinine Clearance: 114 mL/min (based on SCr of 0.8 mg/dL). Trough: 9.7 drawn 35 minutes early Assessment/Plan: Increase vancomycin dose to 1500 mg every 12 hours. Pharmacy will continue to monitor patient. Wellington Cohen [facility] 03/22/2020 1:06 AM * Rubens Wheeler RN - 03/21/2020 10:54 PM EST Dressing to right foot completed at this time. Dressing had small amount of serosanguinous drainage. Pt tolerated well. * Yulisa Ruiz LSW - 03/21/2020 2:20 PM EST SW met with pt to complete assessment during quality rounds with manager college. Pt is alert and oriented and pleasant throughout assessment. Pt is a 60 year old male admitted for foot cellulitis. Pt lives with his girl friend in their home in [place]. Pt has a nebulizer to use at home. Pt was not using any services prior to admission. 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 Pt is a full code and follows with Dr Lester as PCP. Pt does not have advance directives and is notcurrently interested in completing these. Pt reports that his medications are covered well by insurance. Pt plans to return home at discharge with his girlfriend. Pt expresses no discharge needs or concerns at this time. SW will continue to follow and remain available. Yulisa SIERRA HIMS MANAGER 03/21/2020 * Matt Maddox RN - 03/21/2020 12:36 PM EST Quality flow rounds held on 03/21/20 Jillian Little is admitted for Foot cellulits Length of stay 1. Education: Needed Education: wound care, meds, follow up,diet Do you have any questions regarding your plan of care while at the hospital? denies Planned Disposition: [x] Home when able [] Swing Bed [] ECF/SNF [] Other/TBD Barriers to Discharge: Can you afford your medications? yes Do you have transportation to follow up appointments? Drives self Do you need any new equipment at home? Wound care supplies Current equipment includes nebulizer Do you have a living will or durable power of shuttle spotter for healthcare? denies If yes do we have a copy on file? n/a Do you or your family have any questions or concerns we haven't already discussed? Denies Lives with girlfriend. 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 Yulisa ORTIZ and speech writer present for rounding. * Shona Chaney RN - 03/21/2020 8:[address] Peace in , debridement of wound performed by him. Culture taken, sent to lab. Pt tolerates well. * Yulisa Hancock [facility] - 03/21/2020 7:46 AM EST Insulin Degludec non formulary therapeutic interchange Insulin Glargine (same dose and frequency). Order changed * Pedro Rivas, RD, LD - 03/21/2020 7:34 AM EST Comprehensive Nutrition Assessment Type and Reason for Visit: Initial, Wound, Positive Nutrition Screen Nutrition Recommendations/Plan: Mynor and Glucerna Nutrition Assessment: Increased nutrient needs r/t acute injury or trauma, AEB foot wound. Suboptimally controlled diabetes per A1C (year old), with fair glycemia currently. 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 States has been through diabetes education in past. To benefit from increases in nutrition to aid healing, including nutrition supplements/mvi. Malnutrition Assessment: Malnutrition Status: At risk for malnutrition (Comment) Context: Acute Illness Findings of the 6 clinical characteristics of malnutrition: Energy Intake: No significant decrease in energy intake Weight Loss: No significant weight loss Body Fat Loss: No significant body fat loss Muscle Mass Loss: No significant muscle mass loss Fluid Accumulation: 1 - Mild Extremities Manufacturing Applications Engineer Strength: Not Performed Estimated Daily Nutrient Needs: Energy (kcal): 6315-0289(18-23); Weight Used for Energy Requirements: Current Protein (g): 98-113(1.3-1.5); Weight Used for Protein Requirements: Redford Fluid (ml/day): 2100+; Method Used for Fluid Requirements: 1 ml/kcal Nutrition Related Findings: overweight with 2 foot wounds Wounds: Open Wounds(right foot) Current Nutrition Therapies: DIET CARB CONTROL; Dietary Nutrition Supplements: Wound Healing Oral Supplement Dietary Nutrition Supplements: Diabetic Oral Supplement Anthropometric Measures: Height: 5' 10 (177.8 cm) Current Body Weight: 204 lb 3.2 oz (92.6 kg) Admission Body Weight: 203 lb 11.2 oz (92.4 kg) Usual Body Weight: 207 lb 14.4 oz (94.3 kg)(10 months ago- states right around 203# now is stable) Redford Body Weight: 166 lbs; % Redford Body Weight 123 % BMI: 29.3 Adjusted Body Weight: ; No Adjustment BMI Categories: Overweight (BMI 25.0-29.9) Nutrition Diagnosis: Increased nutrient needs related to acute injury/trauma as evidenced by wounds Lab Results Component Value Date NA 135 03/21/2020 K 3.3 (L) 03/21/2020 CL 100 03/21/2020 CO2 27 03/21/2020 BUN 7 03/21/2020 CREATININE 0.80 03/21/2020 GLUCOSE 160 (H) 03/21/2020 CALCIUM 8.3 (L) 03/21/2020 PROT 7.1 03/20/2020 LABALBU 3.8 03/20/2020 BILITOT 1.33 (H) 03/20/2020 ALKPHOS 121 03/20/2020 AST 13 03/20/2020 ALT 11 03/20/2020 LABGLOM >60 03/21/2020 GFRAA >60 03/21/2020 Lab Results Component Value Date LABA1C 8.7 (H) 03/12/2019 Lab Results Component Value Date EAG 203 03/12/2019 Nutrition Interventions: Food and/or Nutrient Delivery: Continue Current Diet, Start Oral Nutrition Supplement Nutrition Education/Counseling: No recommendation at this time Coordination of Nutrition Care: Continue to monitor while inpatient Goals: PO >75% meals and supplements Nutrition Monitoring and Evaluation: Behavioral-Environmental Outcomes: Knowledge or Skill Food/Nutrient Intake Outcomes: Food and Nutrient Intake, Supplement Intake Physical Signs/Symptoms Outcomes: Biochemical Data, Weight Discharge Planning: Too soon to determine Contact: [phone] * Kiet Farah MD - 03/21/2020 6:52 AM EST Hospitalist Progress Note 03/21/2020 6:52 AM Subjective: Admit Date: 03/19/2020 PCP: Sara Lester DO Interval History: The patient has no complaints this morning. Denies pain in the foot. Denies nausea/vomiting/diarrhea. States appetite is good. Diet: DIET CARB CONTROL; Medications: Scheduled Meds: amitriptyline 25 mg Oral Nightly aspirin 81 mg Oral Daily atorvastatin 40 mg Oral Daily DULoxetine 60 mg Oral Daily lisinopril-hydroCHLOROthiazide 0.5 tablet Oral Daily metFORMIN 1,000 mg Oral BID WC pantoprazole 40 mg Oral QAM AC pramipexole 0.5 mg Oral BID pregabalin 75 mg Oral TID budesonide-formoterol 2 puff Inhalation BID Insulin Degludec 90 Units Subcutaneous QAM AC sodium chloride flush 10 mL Intravenous 2 times per day enoxaparin 40 mg Subcutaneous Daily piperacillin-tazobactam 3.375 g Intravenous Q8H insulin lispro 0-6 Units Subcutaneous TID WC insulin lispro 0-3 Units Subcutaneous Nightly vancomycin (VANCOCIN) intermittent dosing (placeholder) Other RX Placeholder vancomycin 1,250 mg Intravenous Q12H vancomycin Continuous Infusions: dextrose sodium chloride 75 mL/hr at 03/20/20 2221 PRN Medications: ipratropium-albuterol, sodium chloride flush, promethazine OR ondansetron, polyethylene glycol, acetaminophen OR acetaminophen, glucose, dextrose, glucagon (rDNA), dextrose, traMADol Objective: Vitals: BP 109/66 Pulse 100 Temp 99 F (37.2 C) (Oral) Resp 16 Ht 5' 10 (1.778 m) Wt 204 lb 3.2 oz (92.6 kg) SpO2 95% BMI 29.30 kg/m BMI: Body mass index is 29.3 kg/m . CBC: Recent Labs 03/20/204403/21/20 0550 WBC 11.5* 7.5 HGB 11.8* 10.3* PLT 253 221 BMP: Recent Labs 03/20/204403/21/20 0550 NA 134* 135 K 3.6* 3.3* CL 97* 100 CO2 27 27 BUN 10 7 CREATININE 0.94 0.80 GLUCOSE 244* 160* Hepatic: Recent Labs 03/20/2044 AST 13 ALT 11 BILITOT 1.33* ALKPHOS 121 Physical Exam: General Appearance: alert and oriented to person, place and time, in no acute distress Cardiovascular: normal rate, regular rhythm, normal S1 and S2, no murmurs Pulmonary/Chest: clear to auscultation bilaterally- no wheezes, rales or rhonchi, normal air movement, no respiratory distress Abdomen: soft, non-tender, non-distended, normal bowel sounds Extremities: Right lower extremity with 1+ edema and erythema, right foot plantar aspect with 2.5 cm deep ulcer with surrounding necrotic tissue. Skin: warm and dry, no rash Neurological: alert, oriented, normal speech, no focal findings or movement disorder noted Assessment and Plan: 1. Right foot ulcer stage IV and cellulitis -continue on IV vancomycin and Zosyn, awaiting consultation by product safety expert . May need debridement. Also may need MRI of the foot for further evaluation of the infection 2. Diabetes mellitus type 2, insulin-dependent uncontrolled -insulin degludec 90 units daily, sliding scale lispro, Metformin 3. Mild hypokalemia -will replace 4. Hypertension -continue on lisinopril HCTZ, 5. Diabetic neuropathy -on Lyrica 6. Acute on chronic anemia -patient's hemoglobin noted to drop to 10.3 from 11.8, most likely dilutional. Will stop IV fluids and follow-up with CBC 7. GERD -on Protonix 8. Restless leg syndrome -on Mirapex 9. Depression -mood is stable, continue on Cymbalta Patient continues to require inpatient admission related to need for IV antibiotics, podiatry consultation, right foot ulcer management Rounding Hospitalist * Micaela Cohen RN - 03/20/2020 4:30 AM EST Pt's admission completed. Home medications reviewed. Pt medicated prn with Tylenol for mild R foot pain. +1 RLE edema. Lateral R foot redness, warmth & bruising noted. Dime sized R plantar wound assessed. Clear drainage noted. * Bill Leavitt [facility] - 03/20/2020 4:23 AM EST Pharmacy Note Vancomycin Consult Jillian Little is a 60 y.o. male started on Vancomycin for wound infection; consult received from Dr. Omid Carias to manage therapy. Also receiving the following antibiotics: Zosyn. Patient Active Problem List Diagnosis Pure hypercholesterolemia Essential hypertension, benign Diabetes mellitus (HCC) GERD (gastroesophageal reflux disease) RLS (restless legs syndrome) Uncontrolled type 2 diabetes mellitus with peripheral neuropathy (HCC) Major depressive disorder, single episode, moderate (HCC) Chronic obstructive pulmonary disease (HCC) Mixed simple and mucopurulent chronic bronchitis (HCC) Cellulitis of foot Allergies: Patient has no known allergies. Temp max: 100.2 Recent Labs 03/20/20 0045 BUN 10 Recent Labs 03/20/20 0045 CREATININE 0.94 Recent Labs 03/20/20 0045 WBC 11.5* No intake or output data in the 24 hours ending 03/20/20 0422 Culture Date Source Results Ht Readings from Last 1 Encounters: 03/19/20 5' 10 (1.778 m) Wt Readings from Last 1 Encounters: 03/19/20 203 lb 11.2 oz (92.4 kg) Body mass index is 29.23 kg/m . Estimated Creatinine Clearance: 97 mL/min (based on SCr of 0.94 mg/dL). Goal Trough Level: 10-20 mcg/mL Assessment/Plan: Will initiate Vancomycin 1250 mg IV every 12 hours. Timing of trough level will be determined basedon culture results, renal function, and clinical response. Thank you for the consult. Will continue to follow. Bill Leavitt Pharm.D. 03/20/2020 4:23 AM documented in this encounter Hospital Course * Kiet Farah MD - 03/26/2020 10:47 AM EST Hospitalist Discharge Summary Patient: Jillian Little Date of : 1960 Acct: [id number] Primary Care Physician: Sara Lester DO Admit date: 03/19/2020 Discharge date: 03/26/2020 Discharge Diagnoses: 1. Right foot osteomyelitis, stage IV ulcer, cellulitis. Blood cultures preliminary with strep beta-hemolytic group B and moderate staph aureus. Final report pending. S/p amputation of the third and fifth toe by on 03/23/20 2. Diabetes mellitus type 2, insulin-dependent, uncontrolled due to noncompliance. Hemoglobin A1c 14% on this admission 3. Mild hypokalemia 4. Hypertension 5. Acute on chronic anemia. H&H drop believed to be secondary to blood draws and dilutional. Needs outpatient follow-up with CBC 6. GERD 7. Restless leg syndrome 8. Depression 9. Diabetic neuropathy Discharge Medications: Jillian Little Home Medication Instructions JAYDEN:[id number] Printed on:03/26/20 1047 Medication Information albuterol sulfate HFA 108 (90 Base) MCG/ACT inhaler INHALE 2 PUFFS EVERY 4 HOURS NEEDED FOR WHEEZING amitriptyline (ELAVIL) 25 MG tablet TAKE 1 TABLET BY MOUTH NIGHTLY aspirin 81 MG tablet Take 81 mg by mouth daily atorvastatin (LIPITOR) 40 MG tablet Take 1 tablet by mouth daily Blood Glucose Monitoring Suppl (TRUE METRIX AIR GLUCOSE METER) EDDIE Use to test sugar TID and PRN Blood Glucose Monitoring Suppl (TRUE METRIX METER) w/Device KIT use THREE TIMES DAILY blood glucose test strips (TRUE METRIX BLOOD GLUCOSE TEST) strip Use to test sugar TID and as needed. doxycycline hyclate (VIBRAMYCIN) 100 MG capsule Take 1 capsule by mouth 2 times daily for 7 days [facility] UNIFINE PENTIPS 31G X 5 MM MISC use to inject lantus and victoza daily DULoxetine (CYMBALTA) 60 MG extended release capsule Take 1 capsule by mouth daily ipratropium-albuterol (DUONEB) 0.5-2.5 (3) MG/3ML SOLN nebulizer solution Inhale 3 mLs into the lungs every 4 hours as needed for Shortness of Breath ketorolac (ACULAR) 0.5 % ophthalmic solution INSTILL 1 DROP IN THE RIGHT EYE FOUR TIMES DAILY - - start 2 (TWO) days prior to surgery R-pnnrrdstcwss-F4-B12 (METANX) 3-90.314-2-35 MG CAPS capsule Take 1 capsule by mouth daily lactobacillus (CULTURELLE) capsule Take 1 capsule by mouth 2 times daily (with meals) Lancets MISC 1 each by Does not apply route 3 times daily levoFLOXacin (LEVAQUIN) 500 MG tablet Take 1 tablet by mouth daily for 7 days lisinopril-hydrochlorothiazide (PRINZIDE;ZESTORETIC) 20-25 MG per tablet Take 0.5 tablets by mouth daily metFORMIN (GLUCOPHAGE) 1000 MG tablet TAKE 1 TABLET BY MOUTH TWICE DAILY WITH MEALS Nebulizers (COMPRESSOR/NEBULIZER) [facility] Use for breathing tx every 4 hours as needed for shortness of breath and wheezing omeprazole (PRILOSEC) 40 MG delayed release capsule TAKE 1 CAPSULE BY MOUTH EVERY DAY pramipexole (MIRAPEX) 0.5 MG tablet TAKE 1 TABLET BY MOUTH TWICE DAILY prednisoLONE acetate (PRED FORTE) 1 % ophthalmic suspension instill 1 (ONE) drop into right eye FOUR TIMES DAILY - - start the day of surgery pregabalin (LYRICA) 75 MG capsule TAKE 1 CAPSULE BY MOUTH THREE TIMES DAILY Respiratory Therapy Supplies (NEBULIZER/TUBING/MOUTHPIECE) KIT 1 kit by Does not apply route every 4 hours as needed (SOB) Adult sized mask please sildenafil (REVATIO) 20 MG tablet 3-5 tabs po daily prn SYMBICORT 160-4.5 MCG/ACT AERO Inhale 2 puffs into the lungs 2 times daily TRESIBA FLEXTOUCH 200 UNIT/ML SOPN INJECT 90 UNITS into the skin DAILY trimethoprim-polymyxin b (POLYTRIM) 49907-4.1 UNIT/ML-% ophthalmic solution INSTILL 1 DROP IN THE RIGHT EYE FOUR TIMES DAILY - - start 1 (ONE) day prior to surgery Umeclidinium Jefferson (INCRUSE ELLIPTA) 62.5 MCG/INH AEPB 1 puff inhaled daily VICTOZA 18 MG/3ML SOPN SC injection INJECT 1.8 mg under the skin once DAILY Diet: DIET CARB CONTROL; Dietary Nutrition Supplements: Diabetic Oral Supplement Dietary Nutrition Supplements: Wound Healing Oral Supplement Activity: As tolerates Follow-up: in 1 week with Sara Lester DO, follow-up with next week Consultants: [employer] Saw [employer]ner , Dr. Peace Diagnostic Test: CBC: No results for input(s): WBC, HGB, PLT in the last 72 hours. BMP: Recent Labs 03/24/20 0600 NA 137 K 4.0 CL 100 CO2 27 BUN 9 CREATININE 0.84 GLUCOSE 222* Calcium: Recent Labs 03/24/20 0600 CALCIUM 9.1 Physical Exam: Vitals: Patient Vitals for the past 24 hrs: BP Temp Temp src Pulse Resp SpO2 Weight 03/26/20 0940 96 % 03/26/20 0745 110/69 97.5 F (36.4 C) Oral 88 16 95 % 03/26/20 0600 202 lb 1.6 oz (91.7 kg) 03/25/20 2210 16 97 % 03/25/20 2030 124/74 97.9 F (36.6 C) Oral 90 18 03/25/20 1529 118/71 97.4 F (36.3 C) Oral 105 18 95 % Weight: Weight: 202 lb 1.6 oz (91.7 kg) 24 hour intake/output: Intake/Output Summary (Last 24 hours) at 03/26/2020 1047 Last data filed at 03/26/2020 0845 Gross per 24 hour Intake 7931 ml Output 2800 ml Net 5131 ml General Appearance: Patient is awake, alert, no distress Cardiovascular: normal rate, regular rhythm, normal S1 and S2, no murmurs Pulmonary/Chest: Clear to auscultation bilaterally, no wheezing Abdomen: soft, non-tender, non-distended, normal bowel sounds Extremities: Right foot dressed, left lower extremity no edema Skin: warm and dry, no rash Neurological: alert, oriented, normal speech, no focal findings or movement disorder noted Hospital Course: The patient is a 60 y.o. male who presents to the ER with an ulcer at the bottom of his right foot with increased redness and swelling. According to Jillian, 2 weeks ago he was putting up a retaining wall with rail road ties. He states he stepped on one that had a railroad spike in it resulting in it going into the bottom of his right foot. He states since then the area has drained on occasion andthe surrounding skin has turned white. Jillian states he had a tetanus shot last year after cutting his right arm. Yesterday, the right foot became swollen and red with him noticing swelling in the right lower leg. He states he felt like he had a mild fever and developed chills. Jillian states he wasnot using any medication for the wound and did not see a doctor. There has not been a lot of pain. He denies his blood glucose levels being more elevated than normal. Jillian states he has been eatingand drinking with no nausea. With his worsening symptoms he came to the ER. In the ER his CMP was normal other than a sodium of 133, potassium of 3.6, Chloride of 97, glucose of 244, and bilirubin of 1.33. CBC showed a WBC of 11.5, Hgb 11.8, and Plt ct of 253. COVID 19 was negative. Xray of the foot showed swelling with no osseous abnormalities. IV Zosyn and Vancomycin were started in the ER. With his worsening symptoms it was felt he should be admitted to continue on IV antibiotics and to be evaluated by Podiatry for debridement of the wound. Patient was evaluated by and recommended MRI right foot which was done on 03/21/2020 and revealed: 1. A 1.5 cm skin wound/ulcer plantar to the third proximal phalanx, with early osteomyelitis throughout the third proximal phalanx. 2. A skin wound/ulcer is also suspected lateral to the base of the fifth proximal phalanx, overlying a 1.6 cm area of hypointense signal, which may represent devitalized/necrotic subcutaneous soft tissue. There is surrounding subcutaneous soft tissue edema/enhancement throughout the lateral and dorsal aspect of the forefoot, which may represent cellulitis. No abscess is seen. 3. Early osteomyelitis is suspected in the fifth proximal phalanx. Mild bone marrow edema, which is most likely reactive, in the medial aspect of the fifth metatarsal head. 4. A small amount of fluid surrounds the fifth flexor digitorum tendons at the level of the phalanges, suggestive of tenosynovitis, which may be infectious or inflammatory. 5. Edema throughout the foot musculature, which is most likely due to chronic diabetic neuropathy, though the possibility of superimposed infectious myositis cannot be excluded. The patient was taken to the OR and underwent amputation of the third and fifth toes. Postoperatively he did well. He continued IV vancomycin and Zosyn. Wound cultures preliminary showing mixed floraincluding gram-positive cocci, gram- negative rods, strep beta-hemolytic group B heavy growth and moderate staph aureus. Final identification and sensitivity report on staph aureus is pending. Had a discussion with regarding patient's antibiotic course. He recommended course of oral antibiotics for coverage for strep and staph (possible MRSA). We will discharge the patient with Levaquin and doxycycline course. Continue wound care per podiatry recommendations. Of note, patient was noncompliant at home with his insulin and diabetes medications. His avqxhlfvydS9c is 14%. Discussed with the patient potential complications from uncontrolled diabetes and encouraged him to be more compliant. He is to resume Tresiba, Victoza, Metformin. He is to follow-up with his PCP next week. Disposition: home Condition: Stable Time Spent: 32 minutes Discharging Hospitalist documented in this encounter Reason for Referral Status Reason Specialty Diagnoses / Procedures Referre d By Contact Referred To Contact Closed Radiology Diagnoses Charcot's joint of right foot Cellulitis of right foot Diabetic neuropathic arthropathy (HCC) Procedures MRI FOOT RIGHT W WO CONTRAST Sara Lester DO [address] [place] [address] Specialty Diagnoses / Procedures Referred By Contac t Referred To Contact Radiology Diagnoses Full incontinence of feces Chronic midline low back pain without sciatica Procedures MRI LUMBAR SPINE W WO CONTRAST Sara Lester DO [address] [place] [address] Referral ID Status Reason Start Date Expiration Date V isits Requested Visits Authorized [id number] Pending Review 02/19/2022 02/09/2023 1 1 Specialty Diagnoses / Procedures Referred By Contac t Referred To Contact Radiology Diagnoses Decreased pulse Procedures VL LOWER EXTREMITY ARTERIAL SEGMENTAL PRESSURES W PPG Sara Lester, DO [address] [place] [address] Referral ID Status Reason Start Date Expiration Date Visits Re quested Visits Authorized [id number] Closed 04/10/2022 04/10/2023 1 1 Summary Purpose Family History No Family History Records Found No data available for this section No data available for this section No Family History Records FoundNo Family History Records FoundNo Family History Records Found No data available for this section Additional Source Comments Reason for Visit (unrecogniz ed section and content) Status Reason Specialty Diagnoses / Procedures Referred By Contact Referred To Contact Diagnoses Non-pressure chronic ulcer of right heel and midfoot with necrosis of muscle Type 2 diabetes mellitus with diabetic polyneuropathy L97.413, E11.42 Procedures MS DEEP DISSEC FOOT INFEC,1 BURSA MS PART EXCIS 5TH METATARSAL HEAD I AND D OF RIGHT FIFTH METATARSAL AND EXCESION OF BONE RIGHT FIFTH METATARSAL EXCERSION OF THE BONE RIGHT 5TH METATARSAL Festus Peace, DPM [address], [place] [address] [facility] Reason Comments Foot Injury relates stepped on r ailroad spike 2-3 weeks ago and has infection Status Reason Specialty Diagnoses / Procedures Referre d By Contact Referred To Contact Diagnoses Cellulitis of foot Back, MD Omid [address] [place] [address] [facility] Reason Comments Leg Swelling Pt has increased swe lling to right foot. Status Reason Specialty Diagnoses / Procedures Referre d By Contact Referred To Contact Closed Radiology Diagnoses Charcot's joint of right foot Cellulitis of right foot Diabetic neuropathic arthropathy (HCC) Procedures MRI FOOT RIGHT W WO CONTRAST Jose RafaelSara joseph L, DO [address] [place] [address] Reason Comments Pharyngitis Pt c/o sore throat x 1 week. Specialty Diagnoses / Procedures Referred By Contac t Referred To Contact Radiology Diagnoses Full incontinence of feces Chronic midline low back pain without sciatica Procedures MRI LUMBAR SPINE W WO CONTRAST Jose RafaelSara joseph L, DO [address] [place] [address] Referral ID Status Reason Start Date Expiration Date V isits Requested Visits Authorized [id number] Pending Review 02/19/2022 02/09/2023 1 1 Specialty Diagnoses / Procedures Referred By Contac t Referred To Contact Radiology Diagnoses Decreased pulse Procedures VL LOWER EXTREMITY ARTERIAL SEGMENTAL PRESSURES W PPG Jose RafaelSara joseph L, DO [address] [place] [address] Referral ID Status Reason Start Date Expiration Date Visits Re quested Visits Authorized [id number] Closed 04/10/2022 04/10/2023 1 1 Reason Comments Toe Pain Left great toe pain I think its getting infected patient is seeing wound care in [place] Reason Comments Foot Pain Foot pain/ infection x14 days My foot doctor is still on vacation Specialty Diagnoses / Procedures Referred By Contac t Referred To Contact Diagnoses Cellulitis of foot Hyperglycemia Osteomyelitis of great toe of left foot (HCC) Osteomyelitis of great toe (HCC) Kiet Farah MD [address] [place] [id number] [facility] [address] [place] [address] Referral ID Status Reason Start Date Expiration Date Visits Re quested Visits Authorized [id number] 1 1 Specialty Diagnoses / Procedures Referred By Contac t Referred To Contact Radiology Diagnoses HALEY (acute kidney injury) (HCC) Procedures US RENAL COMPLETE US RETROPERITONEAL COMPLETE Sara Lester, DO [address] [place] [address] Referral ID Status Reason Start Date Expiration Date Visits Re quested Visits Authorized [id number] Open 05/22/2023 05/21/2024 1 1 Reason Comments Foot Injury Left foot injury x1 day I woke up this morning with a sore on my foot Specialty Diagnoses / Procedures Referred By Contac t Referred To Contact Diagnoses Foot ulcer, left, limited to breakdown of skin (HCC) Back, MD Omid [address] [place] [address] [facility] [address] [place] [address] Referral ID Status Reason Start Date Expiration Date Visits Re quested Visits Authorized [id number] 1 1 Ordered Prescriptions (unrec ognized section and content) Prescription Sig Dispensed Refills Start Date End Da te Misc. Devices (WALKER WHEELS) MISCIndications:Osteomye litis of right foot, unspecified type (HCC),Cellulitis of right foot 1 each by Does not apply route once for 1 dose 1 each 0 03/26/2020 G-zmrogowoemht-D5-B12 (METANX) 3-90.314-2-35 MG CAPS capsule Take 1 capsule by mouth daily 30 capsule 1 03/26/2020 doxycycline hyclate (VIBRAMYCIN) 100 MG capsule Take 1 capsule by mouth 2 times daily for 7 days 14 capsule 0 03/26/2020 04/02/2020 levoFLOXacin (LEVAQUIN) 500 MG tablet Take 1 tablet by mouth daily for 7 days 7 tablet 0 03/26/2020 04/02/2020 lactobacillus (CULTURELLE) capsule Take 1 capsule by mouth 2 times daily (with meals) 60 capsule 1 03/26/2020 Prescription Sig Dispensed Refills Start Date End Da te cephALEXin (KEFLEX) 500 MG capsule Take 1 capsule by mouth 4 times daily 40 capsule 0 11/30/2020 sulfamethoxazole-trimeth oprim (BACTRIM DS) 800-160 MG per tablet Take 1 tablet by mouth 2 times daily for 10 days 20 tablet 0 11/30/2020 12/10/2020 Prescription Sig Dispensed Refills Start Date End Da te Dextromethorphan-guaiFENe sin 60-1200 MG TB12 Take 1 tablet by mouth every 12 hours as needed (cough congestion) 28 tablet 0 04/18/2021 amoxicillin-clavulanate (AUGMENTIN) 875-125 MG per tablet Take 1 tablet by mouth 2 times daily for 10 days 20 tablet 0 04/18/2021 04/28/2021 Prescription Sig Dispensed Refills Start Date End Da te meloxicam (MOBIC) 7.5 MG tablet Take 1 tablet by mouth daily as needed for Pain 10 tablet 1 06/21/2022 clindamycin (CLEOCIN) 300 MG capsule Take 1 capsule by mouth 3 times daily for 7 days 21 capsule 0 06/21/2022 06/28/2022 amoxicillin-clavulanate (AUGMENTIN) 875-125 MG per tablet Take 1 tablet by mouth 2 times daily for 10 days 20 tablet 0 06/21/2022 07/01/2022 Prescription Sig Dispensed Refills Start Date End Da te doxycycline hyclate (VIBRAMYCIN) 100 MG capsule Take 1 capsule by mouth 2 times daily for 7 days 14 capsule 0 06/30/2022 07/07/2022 levoFLOXacin (LEVAQUIN) 500 MG tablet Take 1 tablet by mouth daily for 10 days 10 tablet 0 06/30/2022 07/10/2022 Multiple Vitamin (MULTIVITAMIN) TABS tablet Take 1 tablet by mouth daily 30 tablet 3 06/30/2022 Prescription Sig Dispensed Refills Start Date End Da te amoxicillin (AMOXIL) 500 MG capsule Take 1 capsule by mouth 3 times daily for 10 days 30 capsule 0 07/05/2023 07/15/2023 Scheduled Active and Recently Administ ered Medications (unrecognized section and content) Medication Order 04/16/2021 04/17/2021 04/18/2021 amoxicillin-clavulanate (AUGMENTIN) 875-125 MG per tablet 1 tablet (COMPLETED) 1 tablet, Oral, ONCE, On Sat04/18/21 at 2245, For 1 dose 2238 (Given - Provid er: Micaela Cohen RN) amoxicillin-clavulanate (AUGMENTIN) 875-125 MG per tablet 1 tablet 1 tablet, Oral, ONCE, On Sat04/18/21 at 2245, For 1 dose, Send home with pt 8 (Not Given - Pr ovider: Micaela Cohen RN - Reason: Other - Comment: sent home with pt) Scheduled Medication Order 06/19/2022 06/20/2022 06/21/2022 ampicillin-sulbactam (UNASYN) 3,000 mg in sodium chloride 0.9 % 100 mL IVPB (mini-bag) (COMPLETED) 3,000 mg, IntraVENous, ONCE, 1 dose, On Sat06/21/22 at 1300, Antimicrobial Indications: Skin and Soft Tissue Infection 1313 (New Bag - Prov ider: Anjel Olivia RN)1346 (Stopped - Provider: Paulina Keys RN) clindamycin (CLEOCIN) capsule 300 mg (COMPLETED) 300 mg, Oral, ONCE, 1 dose, On Sat06/21/22 at 1300, Antimicrobial Indications: Skin and Soft Tissue Infection 1307 (Given - Provid er: Anjel Olivia RN) ketorolac (TORADOL) injection 15 mg (COMPLETED) 15 mg, IntraVENous, ONCE, 1 dose, On Sat06/21/22 at 1300 1307 (Given - Provid er: Anjel Olivia RN) Scheduled Medication Order 06/28/2022 06/29/2022 06/30/2022 amitriptyline (ELAVIL) tablet 25 mg 25 mg, Oral, NIGHTLY, First dose on Sat06/26/22 at 2100, Until Discontinued 2140 (Given - Provider: Susan Read RN) 215 (Given - Provider: Matt Velasquez, DRAGAN) 2100 (Due) atorvastatin (LIPITOR) tablet 40 mg 40 mg, Oral, DAILY, First dose on Sat06/26/22 at 1830, Until Discontinued 08 (Given - Provider: Rosi Brooke RN) 08 (Given - Provider: Audrey Lau, DRAGAN) 08 (Given - Provider: Misty Carranza RN) buPROPion (WELLBUTRIN XL) extended release tablet 150 mg 150 mg, Oral, EVERY MORNING, First dose on Sat06/27/22 at 0900, Until Discontinued, Do not crush or break. 0823 (Given - Provider: Rosi Brooke RN) 08 (Given - Provider: Audrey Lau RN) 0826 (Given - Provider: Misty Carranza, RN) cefepime (MAXIPIME) 2,000 mg in sodium chloride 0.9 % 50 mL IVPB (mini-bag) 2,000 mg, IntraVENous, at 12.5 mL/hr, Administer over 240 Minutes, EVERY 8 HOURS SCHEDULED (3 times per day), First dose on Sat06/27/22 at 1200, For 7 days 0006 (Rate/Dose Verify - Provider: Josh Matthew RN)0113 (Stopped - Provider: Josh Matthew RN)0113 (Stopped - Provider: Josh Matthew RN)0214 (Stopped - Provider: Josh Matthew RN)0632 (New Bag - Provider: Josh Matthew RN)0632 (Rate/Dose Verify - Provider: Josh Matthew RN)0647 (Rate/Dose Verify - Provider: Josh Matthew RN)0908 (Stopped - Provider: Rosi Brooke RN)1033 (Stopped - Provider: Rosi Brooke RN)1350 (New Bag - Provider: Paulina Keys RN)1718 (Stopped - Provider: Susan Read RN)1727 (Stopped - Provider: Anton Duran, DRAGAN)2235 (New Bag - Provider: Susan Read RN) 0215 (Stopped - Provider: Susan Read RN)0215 (Stopped - Provider: Susan Read, DRAGAN)0235 (Stopped - Provider: Susan Read RN)0637 (New Bag - Provider: Susan Read RN)0938 (Stopped - Provider: Audrey Lau RN)1358 (New Bag - Provider: Audrey Lau, DRAGAN)1740 (Stopped - Provider: Audrey Lau, DRAGAN)2158 (New Bag - Provider: Matt Velasquez, RN) 0158 (Stopped - Provider: Matt Velasquez, RN)0625 (New Bag - Provider: Josh Matthew RN)0917 (Stopped - Provider: Misty Carranza, RN)1400 (Due)2200 (Due) dulaglutide (TRULICITY) SC injection 1.5 mg (Patient Supplied) 1.5 mg, SubCUTAneous, WEEKLY, First dose on Sat06/26/22 at 1830, Until Discontinued DULoxetine (CYMBALTA) extended release capsule 60 mg 60 mg, Oral, DAILY, First dose on Sat06/26/22 at 1830, Until Discontinued, Do not crush or break. May add contents of capsule to apple juice or apple sauce, but not chocolate. 0823 (Given - Provider: Rosi Brooke RN) 08 (Given - Provider: Audrey Lau RN) 0826 (Given - Provider: Misty Carranza, RN) enoxaparin (LOVENOX) injection 40 mg 40 mg, SubCUTAneous, DAILY, First dose on Sat06/26/22 at 1830, Until Discontinued, Indication of Use: Prophylaxis-DVT/PE, Administer by deep subCUTAneous injection with pt lying down. Alternate injection sites on abdominal wall. Do not rub site after injection. Check with provider prior to any invasive procedure. 08 (Given - Provider: Rosi Brooke RN) 08 (Given - Provider: Audrey Lau RN) 08 (Given - Provider: Misty Carranza, RN) insulin glargine (LANTUS) injection vial 40 Units (CANCELED) 40 Units, SubCUTAneous, 2 TIMES DAILY, First dose on Sat06/26/22 at 2100, Until Discontinued 818 (Given - Provider: Rosi Brooke RN)2126 (Not Given - Provider: Susan Read RN - Reason: Other - Comment: order modified) insulin glargine (LANTUS) injection vial 45 Units 45 Units, SubCUTAneous, 2 TIMES DAILY, First dose (after last modification) on Sat06/28/22 at 2145, Until Discontinued 2139 (Given - Provider: Susan Read RN) 08 (Given - Provider: Audrey Lau, DRAGAN)2201 (Given - Provider: Matt Velasquez RN) 0832 (Given - Provider: Misty Carranza, DRAGAN)2099 (Due) insulin lispro (HUMALOG) injection vial 0-16 Units 0-16 Units, SubCUTAneous, 3 TIMES DAILY WITH MEALS, First dose on Sat06/26/22 at 1830, Until Discontinued, High Dose Corrective Algorithm Glucose: Dose: 70-199 No Insulin 200-249 4 Units 250-299 8 Units 300-349 12 Units Over 349 16 Units and notify physician 0821 (Given - Provider: Rosi Brooke RN - Comment: [phone])1207 (Given - Provider: Rosi Brooke RN - Comment: [phone])1726 (Given - Provider: Anton Duran, DRAGAN) 0747 (Not Given - Provider: Audrey Lau RN - Reason: Order parameters not met)1139 (Not Given - Provider: Audrey Lau RN - Reason: Order parameters not met)1653 (Given - Provider: Audrey Lau RN) 0835 (Not Given - Provider: Misty Carranza RN - Reason: Order parameters not met)1200 (Due)1700 (Due) insulin lispro (HUMALOG) injection vial 0-4 Units 0-4 Units, SubCUTAneous, NIGHTLY, First dose on Sat06/26/22 at 2100, Until Discontinued, If continuous tube feedings/TPN/NPO, give correction dose based on result, no reduction in dose. If eating or bolus tube feeding: Corrective Bedtime Algorithm Glucose: Dose: 70-299 No Insulin 300-349 4 Units Over 349 4 Units and notify physician 210 (Not Given - Provider: Susan Read RN - Reason: Other - Comment: fsbs - 375 one time order put in for 15u of humalog to be given tonight.) 2311 (Not Given - Provider: Matt Velasquez RN - Reason: Order parameters not met) 2100 (Due) insulin lispro (HUMALOG) injection vial 15 Units 15 Units, SubCUTAneous, 3 TIMES DAILY WITH MEALS, First dose on Sat06/26/22 at 1830, Until Discontinued, Substituted for Insulin aspart (NOVOLOG). 0819 (Given - Provider: Rosi Brooke RN)1205 (Given - Provider: Rosi Brooke RN)1723 (Given - Provider: Anton Duran RN) 0810 (Given - Provider: Audrey Lau RN)1201 (Given - Provider: Audrey Lau, DRAGAN)1652 (Given - Provider: Audrey Lau RN) 0832 (Given - Provider: Misty Carranza RN)1200 (Due)1700 (Due) insulin lispro (HUMALOG) injection vial 15 Units (COMPLETED) 15 Units, SubCUTAneous, ONCE, 1 dose, On Sat06/28/22 at 2130 214 (Given - Provider: Susan Read RN) B-obghgbacyovo-C9-B12 3-35-2 mg (METANX) capsule (Patient Supplied) 1 capsule, Oral, DAILY, First dose on Sat06/26/22 at 1830, Until Discontinued 0824 (Not Given - Provider: Rosi Brooke RN - Reason: Medication not available) 0818 (Not Given - Provider: Audrey Lau RN - Reason: Medication not available) 0835 (Not Given - Provider: Misty Carranza RN - Reason: Medication not available) lactobacillus (CULTURELLE) capsule 1 capsule 1 capsule, Oral, 2 TIMES DAILY WITH MEALS, First dose on Sat06/26/22 at 1830, Until Discontinued, Do not add to warm or hot foods or beverages. Caps may be opened & mixed in a cool beverage or sprinkled onto baby food or applesauce. Mix entire packet content into cool food or drink until dissolved. 0823 (Given - Provider: Rosi Brooke RN)2051 (Not Given - Provider: Susan Read RN - Reason: Other - Comment: due at 1700. not given by previous shift) 0811 (Given - Provider: Audrey Lau RN)161 (Given - Provider: Audrey Lau RN) 0826 (Given - Provider: Misty Carranza, DRAGAN)1700 (Due) metFORMIN (GLUCOPHAGE) tablet 1,000 mg 1,000 mg, Oral, 2 TIMES DAILY WITH MEALS, First dose on Sat06/26/22 at 1830, Until Discontinued 0823 (Given - Provider: Rosi Brooke RN)2140 (Given - Provider: Susan Read RN - Comment: not given by previous shift @ 1700) 0811 (Given - Provider: Audrey Lau RN)161 (Given - Provider: Audrey Lau RN) 0826 (Given - Provider: Misty Carranza, DRAGAN)1700 (Due) mometasone-formoterol (DULERA) 200-5 MCG/ACT inhaler 2 puff 2 puff, Inhalation, 2 TIMES DAILY, First dose on Sat06/26/22 at 2000, Until Discontinued, Substituted for Budesonide-Formoterol (SYMBICORT). 1008 (Given - Provider: Briana Rust RCP - Comment: pt with therapy)2107 (Given - Provider: Emelina Jin RCP) 0934 (Given - Provider: Briana Rust RCP)2135 (Given - Provider: Edith Pettit RCP) 09 (Given - Provider: Angy Nur RCP)1999 (Due) multivitamin 1 tablet 1 tablet, Oral, DAILY, First dose on Sat06/29/22 at 0900, Until Discontinued 0853 (Given - Provider: Audrey Lau RN) 08 (Given - Provider: Misty Carranza, DRAGAN) pantoprazole (PROTONIX) tablet 40 mg 40 mg, Oral, DAILY BEFORE BREAKFAST, First dose on Sat06/27/22 at 0700, Until Discontinued, Do not crush or break. Substituted for Omeprazole (PRILOSEC). 0630 (Given - Provider: Josh Matthew RN) 0623 (Given - Provider: Susan Read RN) 0621 (Given - Provider: Josh Matthew RN) pregabalin (LYRICA) capsule 75 mg 75 mg, Oral, 3 TIMES DAILY, First dose on Sat06/26/22 at 2100, Until Discontinued 08 (Given - Provider: Rosi Brooke RN)1342 (Given - Provider: Paulina Keys RN)214 (Given - Provider: Susan Read RN) 08 (Given - Provider: Audrey Lau RN)140 (Given - Provider: Audrey Lau RN)215 (Given - Provider: Matt Velasquez, DRAGAN) 08 (Given - Provider: Misty Carranza, DRAGAN)1400 (Due)2099 (Due) rOPINIRole (REQUIP) tablet 3 mg 3 mg, Oral, NIGHTLY, First dose on Sat06/26/22 at 2100, Until Discontinued 2141 (Given - Provider: Susan Raed RN) 2152 (Given - Provider: Matt Velasquez, DRAGAN) 2099 (Due) sodium chloride flush 0.9 % injection 5-40 mL 5-40 mL, IntraVENous, EVERY 12 HOURS SCHEDULED (2 times per day), First dose on Sat06/26/22 at 2100, Until Discontinued, For Line Patency: Peripheral IV = 5 mL; Midline or Central Line = 10 mL/lumen. If following IV push medication, administer flush at same rate as the IV push. Flush volume is determined by type of infusion therapy being given. For non-viscous solutions use: Peripheral IV = 5 mL Midline or Central Line = 10 mL/lumen For viscous solutions (i.e. blood components, parenteral nutrition, contrast media, or after obtaining blood sample) use: Peripheral IV = 10 mL Midline or Central Line = 20 mL/lumen 0825 (Given - Provider: Rosi Brooke RN)2024 (Given - Provider: Susan Read RN) 075 (Not Given - Provider: Audrey Lau RN - Reason: IV Fluid Infusing)2152 (Given - Provider: Matt Velasquez RN) 0835 (Not Given - Provider: Misty Carranza RN - Reason: IV Fluid Infusing)2099 (Due) vancomycin (VANCOCIN) 1,250 mg in sodium chloride 0.9 % 250 mL IVPB (CANCELED) 1,250 mg (13.3 mg/kg), IntraVENous, at 166.7 mL/hr, Administer over 90 Minutes, EVERY 18 HOURS, First dose on Sat06/27/22 at 0800, Please check ICU refrigerator for patient specific bag 0240 (New Bag - Provider: Josh Matthew RN)0410 (Stopped - Provider: Josh Matthew RN)2022 (New Bag - Provider: Susan Read RN)215 (Rate/Dose Verify - Provider: Susan Read RN)215 (Rate/Dose Verify - Provider: Susan Read RN)223 (Stopped - Provider: Susan Read RN) 0918 (Stopped - Provider: Misty Carranza RN - Comment: stopped prior to shift) vancomycin (VANCOCIN) 1,250 mg in sodium chloride 0.9 % 250 mL IVPB 1,250 mg (13.3 mg/kg), IntraVENous, at 166.7 mL/hr, Administer over 90 Minutes, EVERY 12 HOURS, First dose (after last modification) on Sat06/29/22 at 1100, Please check ICU refrigerator for patient specific bag 1108 (New Bag - Provider: Audrey Lau, DRAGAN)1251 (Stopped - Provider: Audrey Lau RN)2358 (New Bag - Provider: Matt Velasquez, RN) 0321 (Stopped - Provider: Matt Velasquez, RN)1100 (Due)2300 (Due) vancomycin (VANCOCIN) intermittent dosing (placeholder) PRN Medication Order 06/28/2022 06/29/2022 06/30/2022 0.9 % sodium chloride infusion IntraVENous, at 5-250 mL/hr, PRN, if patient receiving piggyback infusions and maintenance fluids are not ordered OR KVO fluids to protect IV site / prevent frequent line interruptions/ long duration, Starting on Sat06/26/22 at 1820, For piggyback infusion, administer at same rate as piggyback for a total of 25 mL. Enter 25 mL into dose field and piggyback rate into rate field of order. If piggyback is infusing at a rate less than 100 mL/hr, enter 25 mL into dose field and 100 mL/hr into rate field of order. For KVO fluids, enter rate of 20 mL/hr or less into rate field of order. 0113 (Stopped - Provider: Josh Matthew RN)0214 (Stopped - Provider: Josh Matthew RN)0631 (New Bag - Provider: Josh Matthew RN)0647 (Rate/Dose Verify - Provider: Josh Matthew RN)0908 (Stopped - Provider: Rosi Brooke, RN)1349 (New Bag - Provider: Paulina Keys, RN)1718 (Stopped - Provider: Susan Read, DRAGAN) 1357 (New Bag - Provider: Audrey Lau RN) 0624 (New Bag - Provider: Josh Matthew RN)0920 (Stopped - Provider: Misty Carranza RN) acetaminophen (TYLENOL) suppository 650 mg(Linked Group 1) 650 mg, Rectal, EVERY 6 HOURS PRN, Starting on Sat06/26/22 at 1820, Until Discontinued, Pain Mild (1-3), Fever, For temp greater than 100.4 F (38 C), Administer if oral route cannot be used. acetaminophen (TYLENOL) tablet 650 mg(Linked Group 1) 650 mg, Oral, EVERY 6 HOURS PRN, Starting on Sat06/26/22 at 1820, Until Discontinued, Pain Mild (1-3), Fever, For temp greater than 100.4 F (38 C), Maximum dose of acetaminophen is 4000 mg from all sources in 24 hours. dextrose 10 % infusion IntraVENous, at 100 mL/hr, CONTINUOUS PRN, if blood glucose remains LESS THAN 70 mg/dL after 2 dextrose 10% intravenous boluses or administration of glucagon, Starting on Sat06/26/22 at 1820, If blood glucose fails to stabilize after 2 dextrose 10% intravenous boluses or glucagon administration, start dextrose 10% infusion at 100 mL/hour and repeat blood glucose at 30 and 60 minutes. If blood glucose is GREATER THAN 70 mg/dL after 60 minutes, discontinue dextrose 10% infusion. dextrose bolus 10% 125 mL(Linked Group 2) 125 mL, IntraVENous, at 937.5 mL/hr, Administer over 8 Minutes, PRN, Other, Blood glucose 40 - 69 mg/dL and patient NOT ALERT or NPO, Starting on Sat06/26/22 at 1820, Repeat blood glucose in 15 minutes. If blood glucose remains LESS THAN 70 mg/dL, repeat treatment and recheck blood glucose in 15 minutes x 2. If using glycemic management system, dose as instructed per system. If blood glucose remains LESS THAN 70 mg/dL after 2 intravenous boluses start dextrose 10% at 100 mL/hour and notify provider. dextrose bolus 10% 250 mL(Linked Group 2) 250 mL, IntraVENous, at 937.5 mL/hr, Administer over 16 Minutes, PRN, Other, Blood glucose LESS THAN 40 mg/dL and patient NOT ALERT or NPO, Starting on Sat06/26/22 at 1820, Repeat blood glucose in 15 minutes. If blood glucose remains LESS THAN 70 mg/dL, repeat treatment and recheck blood glucose in 15 minutes x 2. If using glycemic management system, dose as instructed per system. If blood glucose remains LESS THAN 70 mg/dL after 2 intravenous boluses start dextrose 10% at 100 mL/hour and notify provider. glucagon (rDNA) injection 1 mg 1 mg, SubCUTAneous, PRN, Starting on Sat06/26/22 at 1820, Until Discontinued, Low blood sugar, Blood glucose LESS THAN 70 mg/dL and patient NOT ALERT or NPO and does not have IV access., After administration, attempt intravenous access and start dextrose 10% at 100 mL/hr. Repeat blood glucose in 15 minutes x 2 and notify provider. glucose chewable tablet 16 g 16 g (4 tablet), Oral, PRN, Starting on Sat06/26/22 at 1820, Until Discontinued, Low blood sugar, If blood glucose is LESS THAN 70 mg/dL and patient is alert and tolerating oral. Give 4 tablets (16g) Repeat blood glucose in 15 minutes. If blood glucose is LESS THAN 70 mg/dL, repeat treatment and recheck blood glucose in 15 minutes x 2. If blood glucose remains LESS THAN 70 mg/dL, notify provider. ipratropium-albuterol (DUONEB) nebulizer solution 3 mL 3 mL (1 vial), Inhalation, EVERY 4 HOURS PRN, Starting on Sat06/26/22 at 1820, Until Discontinued, Shortness of Breath, Initiate RT Bronchodilator Protocol: Yes - Inpatient Protocol ondansetron (ZOFRAN) injection 4 mg(Linked Group 3) 4 mg, IntraVENous, EVERY 6 HOURS PRN, Starting on Sat06/26/22 at 1820, Until Discontinued, Nausea, Vomiting, Administer if oral route cannot be used. ondansetron (ZOFRAN-ODT) disintegrating tablet 4 mg(Linked Group 3) 4 mg, Oral, EVERY 8 HOURS PRN, Starting on Sat06/26/22 at 1820, Until Discontinued, Nausea, Vomiting polyethylene glycol (GLYCOLAX) packet 17 g 17 g, Oral, DAILY PRN, Starting on Sat06/26/22 at 1820, Until Discontinued, Constipation, First line therapy for constipation sodium chloride flush 0.9 % injection 5-40 mL 5-40 mL, IntraVENous, PRN, Starting on Sat06/26/22 at 1820, Until Discontinued, Line Care, After every IV line use, For Line Patency: Peripheral IV = 5 mL; Midline or Central Line = 10 mL/lumen. If following IV push medication, administer flush at same rate as the IV push. Flush volume is determined by type of infusion therapy being given. For non-viscous solutions use: Peripheral IV = 5 mL Midline or Central Line = 10 mL/lumen For viscous solutions (i.e. blood components, parenteral nutrition, contrast media, or after obtaining blood sample) use: Peripheral IV = 10 mL Midline or Central Line = 20 mL/lumen 1348 (Given - Provider: Paulina Keys RN) Linked Groups Order Group 1: acetaminophen (TYLENOL) tablet 650 mgJump to med 650 mg, Oral, EVERY 6 HOURS PRN, Starting on Sat06/26/22 at 1820, Until Discontinued, Pain Mild (1-3), Fever, For temp greater than 100.4 F (38 C)
Maximum dose of acetaminophen is 4000 mg from all sources in 24 hours.
Or acetaminophen (TYLENOL) suppository 650 mgJump to med 650 mg, Rectal, EVERY 6 HOURS PRN, Starting on Sat06/26/22 at 1820, Until Discontinued, Pain Mild (1-3), Fever, For temp greater than 100.4 F (38 C)
Administer if oral route cannot be used.
Group 2: dextrose bolus 10% 125 mLJump to med 125 mL, IntraVENous, at 937.5 mL/hr, Administer over 8 Minutes, PRN, Other, Blood glucose 40 - 69 mg/dL and patient NOT ALERT or NPO, Starting on Sat06/26/22 at 1820
Repeat blood glucose in 15 minutes. If blood glucose remains LESS THAN 70 mg/dL, repeat treatment and recheck blood glucose in 15 minutes x 2. If using glycemic management system, dose as instructed per system. If blood glucose remains LESS THAN 70 mg/dL after 2 intravenous boluses start dextrose 10% at 100 mL/hour and notify provider.
Or dextrose bolus 10% 250 mLJump to med 250 mL, IntraVENous, at 937.5 mL/hr, Administer over 16 Minutes, PRN, Other, Blood glucose LESS THAN 40 mg/dL and patient NOT ALERT or NPO, Starting on Sat06/26/22 at 1820
Repeat blood glucose in 15 minutes. If blood glucose remains LESS THAN 70 mg/dL, repeat treatment and recheck blood glucose in 15 minutes x 2. If using glycemic management system, dose as instructed per system. If blood glucose remains LESS THAN 70 mg/dL after 2 intravenous boluses start dextrose 10% at 100 mL/hour and notify provider.
Group 3: ondansetron (ZOFRAN-ODT) disintegrating tablet 4 mgJump to med 4 mg, Oral, EVERY 8 HOURS PRN, Starting on Sat06/26/22 at 1820, Until Discontinued, Nausea, Vomiting Or ondansetron (ZOFRAN) injection 4 mgJump to med 4 mg, IntraVENous, EVERY 6 HOURS PRN, Starting on Sat06/26/22 at 1820, Until Discontinued, Nausea, Vomiting
Administer if oral route cannot be used.
Scheduled Medication Order 07/03/2023 07/04/2023 07/05/2023 amitriptyline (ELAVIL) tablet 25 mg 25 mg, Oral, NIGHTLY, First dose on Sat07/03/23 at 2100, Until Discontinued 2041 (Given - Provider: Maria Esther Amado RN) 2101 (Given - Provider: Maria Esther Amado RN) 2100 (Due) aspirin EC tablet 81 mg 81 mg, Oral, DAILY, First dose on Sat07/03/23 at 1815, Until Discontinued, Do not crush or break. 1755 (Not Given - Provider: Adrienne Cooper RN - Reason: Patient took at home) 808 (Given - Provider: Adrienne Cooper RN) 822 (Given - Provider: Janice Matias, DRAGAN) atorvastatin (LIPITOR) tablet 40 mg 40 mg, Oral, DAILY, First dose on Sat07/03/23 at 1815, Until Discontinued 1754 (Not Given - Provider: Adrienne Cooper RN - Reason: Patient took at home) 808 (Given - Provider: Adrienne Cooper RN) 822 (Given - Provider: Janice Matias, DRAGAN) buPROPion (WELLBUTRIN XL) extended release tablet 150 mg 150 mg, Oral, EVERY MORNING, First dose on Sat07/04/23 at 0900, Until Discontinued, Do not crush or break. 08 (Given - Provider: Adrienne Cooper RN) 822 (Given - Provider: Janice Matias, DRAGAN) doxycycline (VIBRAMYCIN) 100 mg in sodium chloride 0.9 % 100 mL IVPB 100 mg, IntraVENous, EVERY 12 HOURS, 14 doses, First dose on Sat07/04/23 at 1230, Last dose on Sat07/11/23 at 0030, Antimicrobial Indications: Skin and Soft Tissue Infection, Skin duration of therapy: 7 days, Suspected Organism(s): MRSA 1335 (New Bag - Provider: Adrienne Cooper RN)1435 (Stopped - Provider: Adrienne Cooper RN)2351 (New Bag - Provider: Maria Esther Amado RN) 0105 (Stopped - Provider: Maria Esther Amado RN)1214 (Not Given - Provider: Janice Matias, DRAGAN - Reason: Loss of IV access) DULoxetine (CYMBALTA) extended release capsule 60 mg 60 mg, Oral, DAILY, First dose on Sat07/03/23 at 1815, Until Discontinued, Do not crush or break. May add contents of capsule to apple juice or apple sauce, but not chocolate. 175 (Not Given - Provider: Adrienne Cooper RN - Reason: Patient took at home) 08 (Given - Provider: Adrienne Cooper RN) 0823 (Given - Provider: Janice Matias, DRAGAN) enoxaparin (LOVENOX) injection 40 mg 40 mg, SubCUTAneous, DAILY, First dose on Sat07/03/23 at 1815, Until Discontinued, Indication of Use: Prophylaxis-DVT/PE, Administer by deep subCUTAneous injection with pt lying down. Alternate injection sites on abdominal wall. Do not rub site after injection. Check with provider prior to any invasive procedure. 181 (Given - Provider: Adrienne Cooper RN) 08 (Given - Provider: Adrienne Cooper RN) 0823 (Given - Provider: Janice Matias, DRAGAN) glipiZIDE (GLUCOTROL) tablet 5 mg 5 mg, Oral, 2 TIMES DAILY BEFORE MEALS, First dose on Sat07/04/23 at 0700, Until Discontinued, Substituted for glimepiride (AMARYL). 0519 (Given - Provider: Maria Esther Amado RN)1730 (Given - Provider: Adrienne Cooper RN) 0557 (Given - Provider: Maria Esther Amado RN)1600 (Due) insulin glargine (LANTUS) injection vial 56 Units 56 Units, SubCUTAneous, DAILY, First dose on Sat07/03/23 at 1815, Until Discontinued 180 (Not Given - Provider: Adrienne Cooper RN - Reason: Patient took at home) 0808 (Given - Provider: Adrienne Cooper RN) 0823 (Given - Provider: Janice Matias, RN) insulin lispro (HUMALOG) injection vial 0-4 Units 0-4 Units, SubCUTAneous, NIGHTLY, First dose on Sat07/03/23 at 2100, Until Discontinued, If continuous tube feedings/TPN/NPO, give correction dose based on result, no reduction in dose. If eating or bolus tube feeding: Corrective Bedtime Algorithm Glucose: Dose: 70-299 No Insulin 300-349 4 Units Over 349 4 Units and notify physician 222 (Not Given - Provider: Maria Esther Amado RN - Reason: Order parameters not met - Comment: FSBS 157.) 2157 (Not Given - Provider: Maria Esther Amado RN - Reason: Order parameters not met - Comment: FSBS 241.) 2099 (Due) insulin lispro (HUMALOG) injection vial 0-8 Units 0-8 Units, SubCUTAneous, 3 TIMES DAILY WITH MEALS, First dose on Sat07/03/23 at 1815, Until Discontinued, Medium Dose Corrective Algorithm Glucose: Dose: 70-199 No Insulin 200-249 2 Units 250-299 4 Units 300-349 6 Units Over 349 8 Units and notify physician 180 (Not Given - Provider: Adrienne Cooper RN - Reason: Other) 0810 (Not Given - Provider: Adrienne Cooper RN - Reason: Order parameters not met)1148 (Not Given - Provider: Adrienne Cooper RN - Reason: Order parameters not met)1730 (Given - Provider: Adrienne Cooper RN) 0825 (Given - Provider: Janice Matias RN - Comment: 209)1214 (Not Given - Provider: Janice Matias RN - Reason: Order parameters not met - Comment: 114)1700 (Due) insulin lispro (HUMALOG) injection vial 20 Units (COMPLETED) 20 Units, SubCUTAneous, ONCE, 1 dose, On Sat07/03/23 at 1830 1813 (Given - Provider: Adrienne Cooper RN) insulin lispro (HUMALOG) injection vial 40 Units 40 Units, SubCUTAneous, 3 TIMES DAILY WITH MEALS, First dose on Sat07/03/23 at 1815, Until Discontinued, Substituted for Insulin aspart (NOVOLOG). 180 (Not Given - Provider: Adrienne Cooper RN - Reason: Other) 0809 (Given - Provider: Adrienne Cooper RN)1218 (Not Given - Provider: Adrienne Cooper RN - Reason: Order parameters not met)170 (Not Given - Provider: Adrienne Cooper RN - Reason: Other) 0824 (Given - Provider: Janice Matias RN)1214 (Not Given - Provider: Janice Matias RN - Reason: Order parameters not met - Comment: 114)170 (Due) ipratropium (ATROVENT) 0.02 % nebulizer solution 0.5 mg 0.5 mg, Nebulization, 3 TIMES DAILY RESP, First dose on Sat07/03/23 at 2100, Until Discontinued, Initiate RT Bronchodilator Protocol: No, Substituted for Tiotropium (SPIRIVA). 2046 (Not Given - Provider: Emelina Jin RCP - Reason: Patient/family refused) 0511 (Not Given - Provider: Emelina Jin RCP - Reason: Patient/family refused)0949 (Given - Provider: Sho Everett RCP)1343 (Not Given - Provider: Sho Everett RCP - Reason: Other - Comment: Medication given at 10AM not due at this time.)203 (Given - Provider: Emelina Jin RCP) 0857 (Given - Provider: Briana Rust RCP)1300 (Due - Provider: Sho Everett RCP)2100 (Due - Provider: Sho Everett RCP) I-yvpttdqgiyrm-X1-B12 3-35-2 mg (METANX) capsule (Patient Supplied) 1 capsule, Oral, DAILY, First dose on Sat07/03/23 at 1815, Until Discontinued 180 (Not Given - Provider: Adrienne Cooper RN - Reason: Medication not available) 0810 (Not Given - Provider: Adrienne Cooper RN - Reason: Medication not available) 0841 (Not Given - Provider: Janice Matias RN - Reason: Medication not available) lactobacillus (CULTURELLE) capsule 1 capsule 1 capsule, Oral, 2 TIMES DAILY WITH MEALS, First dose on Sat07/03/23 at 1815, Until Discontinued, Do not add to warm or hot foods or beverages. Caps may be opened & mixed in a cool beverage or sprinkled onto baby food or applesauce. Mix entire packet content into cool food or drink until dissolved. 181 (Given - Provider: Adrienne Cooper RN) 08 (Given - Provider: Adrienne Cooper RN)173 (Given - Provider: Adrienne Cooper RN) 0823 (Given - Provider: Janice Matias RN)1700 (Due) mometasone-formoterol (DULERA) 200-5 MCG/ACT inhaler 2 puff 2 puff, Inhalation, 2 TIMES DAILY RESP, First dose on Sat07/03/23 at 2000, Until Discontinued, Substituted for Budesonide-Formoterol (SYMBICORT). 2046 (Given - Provider: Emelina Jin RCP) 0953 (Given - Provider: Sho Everett RCP)203 (Given - Provider: Emelina Jin RCP) 0903 (Given - Provider: Briana Rust RCP)2100 (Due - Provider: Sho Everett RCP) multivitamin 1 tablet 1 tablet, Oral, DAILY, First dose on Sat07/03/23 at 1815, Until Discontinued 175 (Not Given - Provider: Adrienne Cooper RN - Reason: Patient took at home) 08 (Given - Provider: Adrienne Cooper RN) 0823 (Given - Provider: Janice Matias RN) pantoprazole (PROTONIX) tablet 40 mg 40 mg, Oral, 2 TIMES DAILY BEFORE MEALS, First dose on Sat07/04/23 at 0700, Until Discontinued, Do not crush or break. Substituted for Omeprazole (PRILOSEC). 0519 (Given - Provider: Maria Esther Amado RN)1730 (Given - Provider: Adrienne Cooper RN) 0557 (Given - Provider: Maria Esther Amado RN)1600 (Due) piperacillin-tazobactam (ZOSYN) 3,375 mg in sodium chloride 0.9 % 50 mL IVPB (mini-bag) 3,375 mg, IntraVENous, EVERY 8 HOURS, First dose on Sat07/03/23 at 1815, Until Discontinued, Antimicrobial Indications: Skin and Soft Tissue Infection, Skin duration of therapy: 7 days 1816 (New Bag - Provider: Adrienne Cooper RN)2205 (Stopped - Provider: Maria Esther Amado RN)2207 (Stopped - Provider: Finesse Bustos RN) 0231 (New Bag - Provider: Maria Esther Amado RN)0702 (Stopped - Provider: Maria Esther Amado RN)1047 (New Bag - Provider: Adrienne Cooper RN)1346 (Stopped - Provider: Adrienne Cooper RN)1731 (New Bag - Provider: Adrienne Cooper RN)2308 (Rate/Dose Verify - Provider: Maria Esther Amado RN)2330 (Stopped - Provider: Maria Esther Amado RN) 0257 (New Bag - Provider: Maria Esther Amado RN)0700 (Stopped - Provider: Janice Matias, DRAGAN)1015 (Not Given - Provider: Janice Matias, DRAGAN - Reason: Loss of IV access)181 (Due) povidone-iodine (BETADINE) 10 % external solution Topical, 2 TIMES DAILY, First dose on Sat07/04/23 at 0930, Foot and leg with DSD, 4x4 wet-dry 1047 (Given - Provider: Adrienne Cooper RN)210 (Given - Provider: Maria Esther Amado RN) 0827 (Given - Provider: Janice Matias, DRAGAN)2100 (Due) pregabalin (LYRICA) capsule 75 mg 75 mg, Oral, 3 TIMES DAILY, First dose on Sat07/03/23 at 2100, Until Discontinued 2041 (Given - Provider: Maria Esther Amado RN) 0809 (Given - Provider: Adrienne Cooper RN)1334 (Given - Provider: Adrienne Cooper RN)210 (Given - Provider: Maria Esther Amado RN) 08 (Given - Provider: Janice Matias RN)1400 (Due)2099 (Due) rOPINIRole (REQUIP) tablet 3 mg 3 mg, Oral, NIGHTLY, First dose on Sat07/03/23 at 2100, Until Discontinued 2041 (Given - Provider: Maria Esther Amado RN) 2101 (Given - Provider: Maria Esther Amado RN) 2099 (Due) sodium chloride flush 0.9 % injection 5-40 mL 5-40 mL, IntraVENous, EVERY 12 HOURS SCHEDULED (2 times per day), First dose on Sat07/03/23 at 2100, Until Discontinued, For Line Patency: Peripheral IV = 5 mL; Midline or Central Line = 10 mL/lumen. If following IV push medication, administer flush at same rate as the IV push. Flush volume is determined by type of infusion therapy being given. For non-viscous solutions use: Peripheral IV = 5 mL Midline or Central Line = 10 mL/lumen For viscous solutions (i.e. blood components, parenteral nutrition, contrast media, or after obtaining blood sample) use: Peripheral IV = 10 mL Midline or Central Line = 20 mL/lumen 2227 (Given - Provider: Maria Esther Amado RN - Comment: Administered by DRAGAN Kilpatrick.) 824 (Given - Provider: Adrienne Cooper RN)2102 (Given - Provider: Maria Esther Amado RN) 824 (Given - Provider: Janice Matias RN)2099 (Due) vitamin B-12 (CYANOCOBALAMIN) tablet 1,000 mcg 1,000 mcg, Oral, DAILY, First dose on Sat07/03/23 at 1815, Until Discontinued 1756 (Not Given - Provider: Adrienne Cooper RN - Reason: Patient took at home) 08 (Given - Provider: Adrienne Cooper RN) 08 (Given - Provider: Janice Matias RN) Vitamin D (CHOLECALCIFEROL) tablet 1,000 Units 1,000 Units, Oral, DAILY, First dose on Sat07/03/23 at 1815, Until Discontinued 1758 (Not Given - Provider: Adrienne Cooper RN - Reason: Patient took at home) 08 (Given - Provider: Adrienne Cooper RN) 08 (Given - Provider: Janice Matias RN) PRN Medication Order 07/03/2023 07/04/2023 07/05/2023 0.9 % sodium chloride infusion IntraVENous, at 5-250 mL/hr, PRN, if patient receiving piggyback infusions and maintenance fluids are not ordered OR KVO fluids to protect IV site / prevent frequent line interruptions/ long duration, Starting on Sat07/03/23 at 1750, For piggyback infusion, administer at same rate as piggyback for a total of 25 mL. Enter 25 mL into dose field and piggyback rate into rate field of order. If piggyback is infusing at a rate less than 100 mL/hr, enter 25 mL into dose field and 100 mL/hr into rate field of order. For KVO fluids, enter rate of 20 mL/hr or less into rate field of order. 181 (New Bag - Provider: Adrienne Cooper RN)221 (Stopped - Provider: Maria Esther Amado RN) 0228 (Restarted - Provider: Maria Esther Amado RN)1047 (New Bag - Provider: Adrienne Cooper RN)210 (Stopped - Provider: Maria Esther Amado, DRAGAN)211 (New Bag - Provider: Maria Esther Amado, DRAGAN)2351 (Stopped - Provider: Maria Esther Amado RN) 0256 (Restarted - Provider: Maria Esther Amado RN) acetaminophen (TYLENOL) suppository 650 mg(Linked Group 1) 650 mg, Rectal, EVERY 6 HOURS PRN, Starting on Sat07/03/23 at 1750, Until Discontinued, Pain Mild (1-3), Fever, For temp greater than 100.4 F (38 C), Administer if oral route cannot be used. acetaminophen (TYLENOL) tablet 650 mg(Linked Group 1) 650 mg, Oral, EVERY 6 HOURS PRN, Starting on Sat07/03/23 at 1750, Until Discontinued, Pain Mild (1-3), Fever, For temp greater than 100.4 F (38 C), Maximum dose of acetaminophen is 4000 mg from all sources in 24 hours. cyclobenzaprine (FLEXERIL) tablet 5 mg 5 mg, Oral, 2 TIMES DAILY PRN, Starting on Sat07/03/23 at 1750, Until Discontinued, Muscle spasms 2041 (Given - Provider: Maria Esther Amado, DRAGAN) 2101 (Given - Provider: Maria Esther Amado RN) dextrose 10 % infusion IntraVENous, at 100 mL/hr, CONTINUOUS PRN, if blood glucose remains LESS THAN 70 mg/dL after 2 dextrose 10% intravenous boluses or administration of glucagon, Starting on Sat07/03/23 at 1750, If blood glucose fails to stabilize after 2 dextrose 10% intravenous boluses or glucagon administration, start dextrose 10% infusion at 100 mL/hour and repeat blood glucose at 30 and 60 minutes. If blood glucose is GREATER THAN 70 mg/dL after 60 minutes, discontinue dextrose 10% infusion. dextrose bolus 10% 125 mL(Linked Group 2) 125 mL, IntraVENous, at 937.5 mL/hr, Administer over 8 Minutes, PRN, Other, Blood glucose 40 - 69 mg/dL and patient NOT ALERT or NPO, Starting on Sat07/03/23 at 1750, Repeat blood glucose in 15 minutes. If blood glucose remains LESS THAN 70 mg/dL, repeat treatment and recheck blood glucose in 15 minutes x 2. If using glycemic management system, dose as instructed per system. If blood glucose remains LESS THAN 70 mg/dL after 2 intravenous boluses start dextrose 10% at 100 mL/hour and notify provider. dextrose bolus 10% 250 mL(Linked Group 2) 250 mL, IntraVENous, at 937.5 mL/hr, Administer over 16 Minutes, PRN, Other, Blood glucose LESS THAN 40 mg/dL and patient NOT ALERT or NPO, Starting on Sat07/03/23 at 1750, Repeat blood glucose in 15 minutes. If blood glucose remains LESS THAN 70 mg/dL, repeat treatment and recheck blood glucose in 15 minutes x 2. If using glycemic management system, dose as instructed per system. If blood glucose remains LESS THAN 70 mg/dL after 2 intravenous boluses start dextrose 10% at 100 mL/hour and notify provider. glucagon injection 1 mg 1 mg, SubCUTAneous, PRN, Starting on Sat07/03/23 at 1750, Until Discontinued, Low blood sugar, Blood glucose LESS THAN 70 mg/dL and patient NOT ALERT or NPO and does not have IV access., After administration, attempt intravenous access and start dextrose 10% at 100 mL/hr. Repeat blood glucose in 15 minutes x 2 and notify provider. glucose chewable tablet 16 g 16 g (4 tablet), Oral, PRN, Starting on Sat07/03/23 at 1750, Until Discontinued, Low blood sugar, If blood glucose is LESS THAN 70 mg/dL and patient is alert and tolerating oral. Give 4 tablets (16g) Repeat blood glucose in 15 minutes. If blood glucose is LESS THAN 70 mg/dL, repeat treatment and recheck blood glucose in 15 minutes x 2. If blood glucose remains LESS THAN 70 mg/dL, notify provider. ipratropium 0.5 mg-albuterol 2.5 mg (DUONEB) nebulizer solution 1 Dose 1 Dose, Inhalation, EVERY 4 HOURS PRN, Starting on Sat07/03/23 at 1750, Until Discontinued, Shortness of Breath, Initiate RT Bronchodilator Protocol: No ondansetron (ZOFRAN) injection 4 mg(Linked Group 3) 4 mg, IntraVENous, EVERY 6 HOURS PRN, Starting on Sat07/03/23 at 1750, Until Discontinued, Nausea, Vomiting, Administer if oral route cannot be used. ondansetron (ZOFRAN-ODT) disintegrating tablet 4 mg(Linked Group 3) 4 mg, Oral, EVERY 8 HOURS PRN, Starting on Sat07/03/23 at 1750, Until Discontinued, Nausea, Vomiting polyethylene glycol (GLYCOLAX) packet 17 g 17 g, Oral, DAILY PRN, Starting on Sat07/03/23 at 1750, Until Discontinued, Constipation, First line therapy for constipation sodium chloride flush 0.9 % injection 5-40 mL 5-40 mL, IntraVENous, PRN, Starting on Sat07/03/23 at 1750, Until Discontinued, Line Care, After every IV line use, For Line Patency: Peripheral IV = 5 mL; Midline or Central Line = 10 mL/lumen. If following IV push medication, administer flush at same rate as the IV push. Flush volume is determined by type of infusion therapy being given. For non-viscous solutions use: Peripheral IV = 5 mL Midline or Central Line = 10 mL/lumen For viscous solutions (i.e. blood components, parenteral nutrition, contrast media, or after obtaining blood sample) use: Peripheral IV = 10 mL Midline or Central Line = 20 mL/lumen Linked Groups Order Group 1: acetaminophen (TYLENOL) tablet 650 mgJump to med 650 mg, Oral, EVERY 6 HOURS PRN, Starting on Sat07/03/23 at 1750, Until Discontinued, Pain Mild (1-3), Fever, For temp greater than 100.4 F (38 C)
Maximum dose of acetaminophen is 4000 mg from all sources in 24 hours.
Or acetaminophen (TYLENOL) suppository 650 mgJump to med 650 mg, Rectal, EVERY 6 HOURS PRN, Starting on Sat07/03/23 at 1750, Until Discontinued, Pain Mild (1-3), Fever, For temp greater than 100.4 F (38 C)
Administer if oral route cannot be used.
Group 2: dextrose bolus 10% 125 mLJump to med 125 mL, IntraVENous, at 937.5 mL/hr, Administer over 8 Minutes, PRN, Other, Blood glucose 40 - 69 mg/dL and patient NOT ALERT or NPO, Starting on Sat07/03/23 at 1750
Repeat blood glucose in 15 minutes. If blood glucose remains LESS THAN 70 mg/dL, repeat treatment and recheck blood glucose in 15 minutes x 2. If using glycemic management system, dose as instructed per system. If blood glucose remains LESS THAN 70 mg/dL after 2 intravenous boluses start dextrose 10% at 100 mL/hour and notify provider.
Or dextrose bolus 10% 250 mLJump to med 250 mL, IntraVENous, at 937.5 mL/hr, Administer over 16 Minutes, PRN, Other, Blood glucose LESS THAN 40 mg/dL and patient NOT ALERT or NPO, Starting on Sat07/03/23 at 1750
Repeat blood glucose in 15 minutes. If blood glucose remains LESS THAN 70 mg/dL, repeat treatment and recheck blood glucose in 15 minutes x 2. If using glycemic management system, dose as instructed per system. If blood glucose remains LESS THAN 70 mg/dL after 2 intravenous boluses start dextrose 10% at 100 mL/hour and notify provider.
Group 3: ondansetron (ZOFRAN-ODT) disintegrating tablet 4 mgJump to med 4 mg, Oral, EVERY 8 HOURS PRN, Starting on Sat07/03/23 at 1750, Until Discontinued, Nausea, Vomiting Or ondansetron (ZOFRAN) injection 4 mgJump to med 4 mg, IntraVENous, EVERY 6 HOURS PRN, Starting on Sat07/03/23 at 1750, Until Discontinued, Nausea, Vomiting
Administer if oral route cannot be used.
Care Teams (unrecognized sec tion and content) Personnel Name: ELAINEDEMETRIO SARA CHRISTINE Address: [facility] [address] Coding Machine Operator Relationship Specialty Start Date End Date Sara LesterDO [address] [place] [address] PCP - General 03/10/15 Coding Machine Operator Relationship Specialty Start Date End Date Sara Lester [address] [place] [address] PCP - General 03/10/15 Coding Machine Operator Relationship Specialty Start Date End Date Sara Lester [address] [place] [address] PCP - General 03/10/15 Coding Machine Operator Relationship Specialty Start Date End Date Sara Lester [address] [place] [address] PCP - General 03/10/15 Coding Machine Operator Relationship Specialty Start Date End Date Sara Lester [address] [place] [address] PCP - General 03/10/15 Coding Machine Operator Relationship Specialty Start Date End Date Sara Lester [address] [place] [address] PCP - General 03/10/15 Coding Machine Operator Relationship Specialty Start Date End Date Sara Lester [address] [place] [address] PCP - General 03/10/15 Coding Machine Operator Relationship Specialty Start Date End Date Sara Lester DO [address] [place] [id number] PCP - General 03/10/15 Coding Machine Operator Relationship Specialty Start Date End Date Sara Lester DO [address] [place] [id number] PCP - General 03/10/15 (unrecognized sect ion and content) No Status Records FoundNo Status Records FoundNo Status Records FoundNo Status Records Found INFORMATION SOURCE (unrecogn ized section and content) DATE CREATED AUTHOR 12/13/2021 [facility] DATE CREATED AUTHOR AUTHOR'S ORGANIZ ATION 07/10/2023 [facility] DATE CREATED AUTHOR AUTHOR'S ORGANIZ ATION 07/11/2023 [facility] DATE CREATED AUTHOR AUTHOR'S ORGANIZ ATION 08/20/2023 [facility] FOR RECORDS PERTAINING TO PATIENTS WHO ARE OR HAVE BEEN ENROLLED IN A CHEMICAL DEPENDENCY/SUBSTANCEABUSE PROGRAM, SOME INFORMATION MAY BE OMITTED. This clinical summary was aggregated from multiple sources. Caution should be exercised in using it in the provision of clinical care. This summary normalizes information from multiple sources, and as a consequence, information in this document may materially change the coding, format and clinical context of patient data. In addition, data may be omitted in some cases. CLINICAL DECISIONS SHOULD BE BASED ON THE PRIMARY CLINICAL RECORDS. [facility]. provides no warranty or guarantee of the accuracy or completeness of information in this document.
== END 2023-08-21 09:01 | disposition home or self-care (01) ==
PROVIDERS: PCP Student in an Organized Health Care Education/Training Program; Visit Provider Podiatrist Foot & Ankle Surgery
DX: R09.89 Other specified symptoms and signs involving the circulatory and respiratory systems (principal)
CPT/HCPCS: 93923

== ENCOUNTER 2023-08-21 10:39 | Outpatient (OUT) | payer MEDICARE, MEDICAID, SELFPAY | END 2023-08-21 10:40 | disposition home or self-care (01) | LOC: WC 10:39 | PROVIDERS: PCP Student in an Organized Health Care Education/Training Program; Visit Provider Podiatrist Foot & Ankle Surgery | DX: R09.89 Other specified symptoms and signs involving the circulatory and respiratory systems (principal); E11.621 Type 2 diabetes mellitus with foot ulcer; L97.428 Non-pressure chronic ulcer of left heel and midfoot with other specified severity; L97.418 Non-pressure chronic ulcer of right heel and midfoot with other specified severity; S90.821A Blister (nonthermal), right foot, initial encounter | CPT/HCPCS: 29445; 93923 ==

== ENCOUNTER 2023-08-27 13:48 | Outpatient (OUT) | payer MEDICARE, MEDICAID, SELFPAY | END 2023-08-27 13:49 | disposition home or self-care (01) | LOC: WC 13:48 | PROVIDERS: PCP Student in an Organized Health Care Education/Training Program; Visit Provider Podiatrist Foot & Ankle Surgery | DX: E11.621 Type 2 diabetes mellitus with foot ulcer (principal); L97.418 Non-pressure chronic ulcer of right heel and midfoot with other specified severity; L97.428 Non-pressure chronic ulcer of left heel and midfoot with other specified severity | CPT/HCPCS: 11042; 29445 ==

== ENCOUNTER 2023-09-03 09:14 | Outpatient (OUT) | payer MEDICARE, MEDICAID, SELFPAY | END 2023-09-03 09:15 | disposition home or self-care (01) | LOC: WC 09:14 | PROVIDERS: PCP Student in an Organized Health Care Education/Training Program; Visit Provider Podiatrist Foot & Ankle Surgery | DX: E11.621 Type 2 diabetes mellitus with foot ulcer (principal); L97.412 Non-pressure chronic ulcer of right heel and midfoot with fat layer exposed; L97.418 Non-pressure chronic ulcer of right heel and midfoot with other specified severity; L97.428 Non-pressure chronic ulcer of left heel and midfoot with other specified severity | CPT/HCPCS: 11042; 29445 ==

== ENCOUNTER 2023-09-10 13:31 | Outpatient (OUT) | payer MEDICARE, MEDICAID, SELFPAY | END 2023-09-10 13:32 | disposition home or self-care (01) | LOC: WC 13:31 | PROVIDERS: PCP Student in an Organized Health Care Education/Training Program; Visit Provider Podiatrist Foot & Ankle Surgery | DX: E11.621 Type 2 diabetes mellitus with foot ulcer (principal); L97.428 Non-pressure chronic ulcer of left heel and midfoot with other specified severity; L97.418 Non-pressure chronic ulcer of right heel and midfoot with other specified severity; L97.412 Non-pressure chronic ulcer of right heel and midfoot with fat layer exposed | CPT/HCPCS: 11042; 29445 ==

== ENCOUNTER 2023-09-18 13:41 | Outpatient (OUT) | payer MEDICARE, MEDICAID, SELFPAY | END 2023-09-18 13:42 | disposition home or self-care (01) | LOC: WC 13:41 | PROVIDERS: PCP Student in an Organized Health Care Education/Training Program; Visit Provider Podiatrist Foot & Ankle Surgery | DX: E11.621 Type 2 diabetes mellitus with foot ulcer (principal); L97.428 Non-pressure chronic ulcer of left heel and midfoot with other specified severity; L97.418 Non-pressure chronic ulcer of right heel and midfoot with other specified severity; L97.412 Non-pressure chronic ulcer of right heel and midfoot with fat layer exposed | CPT/HCPCS: 29445; A6213 ==

== ENCOUNTER 2023-09-23 15:23 | Outpatient (OUT) | payer MEDICARE, MEDICAID, SELFPAY | END 2023-09-23 15:24 | disposition home or self-care (01) | LOC: WC 15:23 | PROVIDERS: PCP Student in an Organized Health Care Education/Training Program; Visit Provider Physician Assistant | DX: E11.621 Type 2 diabetes mellitus with foot ulcer (principal); L97.428 Non-pressure chronic ulcer of left heel and midfoot with other specified severity; L97.412 Non-pressure chronic ulcer of right heel and midfoot with fat layer exposed | CPT/HCPCS: 11043 ==

== ENCOUNTER 2023-10-21 10:00 | Outpatient (OUT) | payer MEDICARE, MEDICAID, SELFPAY ==
--- OUTSIDE RECORDS SUMMARY | 2023-10-22 10:39 | XMS_ITS | CCD ---
[facility] Care Team Providers Care Geodetic Surveyor Name Role Phone Sara Lester Primary Care Provider [phone] SARA LESTER Primary Care Physician Sara Lester DO Primary Care Provider TITO MOREJON Attending Unavailable SARA LESTER Primary Care Unavailable Sara Lester DO Primary Care Provider Sara Lester DO Primary Care Provider [phone] FESTUS PEACE Attending Unavailabl e FESTUS PEACE [...] Unavailable Dolce, Zenon R Attending Unavailable Dolce, Zneon R Attending Unavailable Dolce, Zenon R Attending Unavailable Dolce, Zenon R Attending Unavailable Dolce, Zenon R Attending Unavailable Dolce, Zenon R Attending Unavailable Dolce, Zenon R Attending Unavailable Dolce, Zenon R Attending Unavailable Dolce, Zenon R Attending Unavailable Dolce, Zenon R Attending Unavailable Dolce, Zenon R Attending Unavailable Dolce, Zenon R Attending Unavailable Akkina, Elder Admitting Unavailable Akkina, Elder Attending Unavailable Akkina, Elder Referring Unavailable Dolce, Zenon R Admitting Unavailable Dolce, Zenon R Attending Unavailable Moussestrella, Perlamad Admitting Unavailable MoKwaku hopkinsd Attending Unavailable Bill Ochoa Attending Unavailable Akkina, Elder Attending Unavailable Akkina, Elder Admitting Unavailable MD Jose Rafael Deng Admitting Unavailable MD Jose Rafael Deng Attending Unavailable MD Jose Rafael Deng Referring Unavailable YONLEY, SARA L Attending Unavailable YONLEY, [...] Admitting Unavailable BACK, OMID Attending Unavailable FESTUS EPACE Consulting Unavailabl e BACK, OMID Consulting Unavailable BACK, OMID Admitting Unavailable BACK, OMID Attending Unavailable YONLEY, SARA L Primary Care Unavailable BACK, OMID Consulting Unavailable YONLEY, SARA L Primary Care Unavailable MAXIM GUTIERREZ Attending Unavailable YONLEY, SARA L Attending Unavailable YONLEY, SARA L Referring Unavailable YONLEY, SARA L Primary Care Unavailable YONLEY, SARA L Referring Unavailable YONLEY, SARA L Primary Care Unavailable Medications Current Medications Medication Drug Class(es) Dates Sig (Normalized) Sig (Original) Acetaminophen (3 sources) Start: 07-03-2023 acetaminophen (TYLENOL) tablet 650 mg Start: 06-26-2022 acetaminophen (TYLENOL) tablet 650 mg Start: 03-20-2020 acetaminophen (TYLENOL) tablet 650 mg acetaminophen 325 mg / HYDROcodone bitartrate 5 mg oral tablet (20 sources) Opioid Agonist Start: 05-16-2020 HYDROcodone-ac etaminophen (NORCO) 5-325 MG per tablet 1 tablet Start: 11-24-2019 Tyler 325 mg-5 mg oral tablet 1 tab(s), Oral, q6hr for pain, 6 tab(s), Refill(s) 0 Start Date: 11/24/19 Status: Ordered Advair Discus 100 mcg-50 mcg Powder (20 sources) Start: 01-19-2012 take 1 puff(s) by inhalation twice daily Advair Discus 100 mcg-50 mcg Powder 1 puff(s), Inhalation, BID, Refill(s) 0 Start Date: 01/19/12 Status: Ordered [id number] 200 actuat albuterol 0.09 mg/actuat metered dose inhaler (15 sources) beta2-Adrenergi c Agonist Start: 07-01-2023 take [...] Breath 1 Inhaler 0 09/23/2018 Active albuterol 0.833 mg/ml / ipratropium bromide 0.167 mg/ml inhalation solution (20 sources) Anticholinergic, beta2-Adrenergic Agonist Start: 04-04-2022 take 3 mL by inhalation every four hours as needed ipratropium-albuterol (DUONEB) 0.5-2.5 (3) MG/3ML SOLN nebulizer solution Indications: Chronic obstructive pulmonary disease with acute exacerbation (HCC) Inhale 3 mLs into the lungs every 4 hours as needed for Shortness of Breath 360 mL 0 04/04/2022 Active Start: 09-23-2018 take 3 mL by inhalat ion every four hours as needed ipratropium-albuterol (DUONEB) 0.5-2.5 (3) MG/3ML SOLN nebulizer solution Inhale 3 mLs into the lungs every 4 hours as needed for Shortness of Breath 360 mL 0 10/21/2018 Active albuterol sulfate HFA 108 (90 Base) MCG/ACT inhaler (6 sources) Start: 12-17-2019 take 2 puff(s) by inhalation every four hours as needed for wheezing albuterol sulfate HFA 108 (90 Base) MCG/ACT inhaler INHALE 2 PUFFS EVERY 4 HOURS NEEDED FOR WHEEZING 18 g 5 12/17/2019 Active amitriptyline hydrochloride 25 mg oral tablet (20 sources) Tricyclic Antidepressant Start: 10-02-2022 take 1 tablet by mouth once daily amitriptyline (ELAVIL) 25 MG tablet TAKE 1 TABLET BY MOUTH EVERY NIGHT 90 tablet 1 04/15/2023 Active Start: 09-25-2021 take 1 tablet by yadira [...] mouth nightly 30 tablet 0 09/23/2018 Active amoxicillin 500 mg oral capsule (1 source) Penicillin-class Antibacterial Start: 07-05-2023 End: 07-15-2023 take 1 capsule by mouth three times daily amoxicillin (AMOXIL) 500 MG capsule Take 1 capsule by mouth 3 times daily for 10 days 30 capsule 0 07/05/2023 07/15/2023 Active aspirin 81 mg delayed release oral tablet (16 sources) Platelet Aggregation Inhibitor, Nonsteroidal Anti-inflammatory Drug Start: 01-06-2023 take 1 tablet by mouth once daily aspirin 81 MG EC tablet Take 1 tablet by mouth daily 90 tablet 1 01/06/2023 Active Start: 03-20-2020 take 81 mg by mouth once daily 81 mg, Oral, DAILY, First dose on 03/20/20 at 0900 take 1 tablet by mouth once miko y aspirin 81 MG tablet Take 81 mg by mouth daily 0 Active atorvastatin 40 mg oral tablet (20 sources) HMG-CoA Reductase Inhibitor Start: 10-02-2022 take 1 tablet by mouth once daily atorvastatin (LIPITOR) 40 MG tablet Take 1 tablet by mouth daily 90 tablet 1 05/21/2023 Active Start: 04-30-2022 take 1 tablet by yadira [...] mouth daily 30 tablet 0 09/23/2018 Active becaplermin 0.0001 mg/mg topical gel (3 [...] week(s), # 20 cap(s), Refills(s) 0, Pharmacy: [facility] #[id number], 175.3, cm, 08/09/22 15:05:00 EDT, Height/Length Dosing, 96, kg, 08/09/22 15:05:00 EDT, Weight Dosing Start Date: 08/11/22 Stop Date: 08/25/22 Status: Ordered Blood Glucose Calibration LIQD (3 sources) Start: 03-19-2023 Blood Glucose Calibration LIQD [...] Monitoring Suppl (TRUE METRIX METER) w/Device KIT (20 sources) Start: 01-20-2019 Blood Glucose Monitoring Suppl [...] times daily 1 Inhaler 0 09/23/2018 Active 24 hr buPROPion hydrochloride 150 mg extended release oral tablet (20 sources) Aminoketone Start: 10-02-2022 take 1 tablet by mouth once daily in the morning buPROPion (WELLBUTRIN XL) 150 MG extended release tablet Take 1 tablet by mouth every morning 90 tablet 1 05/21/2023 Active Start: 04-30-2022 take 1 tablet by yadira [...] every morning 30 tablet 5 11/15/2020 Active calcium chloride 0.0014 meq/ml / potassium [...] Start: 12-13-2020 take 1 capsule by mo [facility] four times daily cephALEXin (KEFLEX) 500 MG capsule Take 1 capsule by mouth 4 times daily 40 capsule 0 12/13/2020 Active Start: 11-30-2020 take 1 capsule by mo [facility] four times daily cephALEXin (KEFLEX) 500 MG capsule Take 1 capsule by mouth 4 times daily 40 capsule 0 11/30/2020 Active cholecalciferol 0.025 mg oral tablet (20 sources) Vitamin D Start: 05-21-2023 take 1 tablet by mouth once daily vitamin D (VITAMIN D3) 25 MCG (1000 UT) TABS tablet Take 1 tablet by mouth daily 90 tablet 3 05/21/2023 Active Start: 08-11-2022 take 1 tablet by yadira th once daily cholecalciferol 1000 intl units (25 mcg) oral tablet 25 mcg = 1 tab(s), Oral, Daily, # 30 tab(s), Refills(s) 0, Pharmacy: [facility] #[id number], 175.3, cm, 08/09/22 15:05:00 EDT, Height/Length Dosing, 96, kg, 08/09/22 15:05:00 EDT, Weight Dosing Start Date: 08/11/22 Status: Ordered Start: 08-11-2022 take 1 tablet by yadira once daily cholecalciferol 1000 intl units (25 mcg) oral tablet 25 mcg = 1 tab(s), Oral, Daily, # 30 tab(s), Refills(s) 0, Pharmacy: [facility] #37, 175.3, cm, 08/09/22 15:05:00 EDT, Height/Length Dosing, 96, kg, 08/09/22 15:05:00 EDT, Weight Dosing Start Date: 08/11/22 Status: Ordered clindamycin 300 mg oral capsule (3 sources) Lincosamide Antibacterial Start: 06-21-2022 End: 06-30-2022 take 1 capsule by mouth three times daily clindamycin (CLEOCIN) 300 MG capsule Take 1 capsule by mouth 3 times daily for 7 days 21 capsule 0 06/21/2022 06/30/2022 Discontinued (Stop Taking at Discharge) Start: 06-21-2022 End: 06-21-2022 clindamycin (CLEOCIN) capsul e 300 mg Continuous Blood Gluc Primer Assembler (DEXCOM G6 ESL TUTOR) EDDIE (2 sources) Start: 12-13-2020 Continuous Blood Gluc Primer Assembler (DEXCOM G6 ESL TUTOR) EDDIE Indications: Uncontrolled type 2 diabetes mellitus with peripheral neuropathy (HCC) , MCFP current use of insulin (HCC) Use to monitor glucose continuously. Replace yearly. 1 each 1 12/13/2020 Active Continuous Blood Gluc Sensor (DEXCOM G6 SENSOR) MISC (2 sources) Start: 12-13-2020 Continuous Blood Gluc Sensor (DEXCOM G6 SENSOR) MISC Indications: Uncontrolled type 2 diabetes mellitus with peripheral neuropathy (HCC) , emt intermediate current use of insulin (HCC) Use to monitor glucose continuously. Replace every 30 days 3 each 3 12/13/2020 Active Continuous Blood Gluc Transmit (DEXCOM G6 TRANSMITTER) [facility] [place]2 sources[place] Start: 12-13-2020 Continuous Blood Gluc Transmit (DEXCOM G6 TRANSMITTER) [facility] [place]ications: Uncontrolled type 2 diabetes mellitus with peripheral neuropathy (HCC) , emt intermediate current use of insulin (HCC) Use to monitor glucose continuously. Replace every 3 mos. 1 each 3 12/13/2020 Active Continuous Glucose Sensor (FREESTYLE TYRELL 3 SENSOR) [facility] [place] (1 source) Start: 08-30-2023 Continuous Glucose Sensor (FREESTYLE TYRELL 3 SENSOR) [facility] [place] Indications: Type 2 diabetes mellitus with diabetic polyneuropathy, with long-term current use of insulin (HCC) Replace sensor every 14 days for continuous glucose monitoring 6 each 4 08/30/2023 Active cyclobenzaprine hydrochloride 5 mg oral tablet (20 sources) Muscle Relaxant Start: 08-14-2023 take 1 tablet by mouth twice daily as needed for muscle spasms cyclobenzaprine (FLEXERIL) 5 MG tablet Take 1 tablet by mouth 2 times daily as needed for Muscle spasms 60 tablet 2 08/14/2023 Active Start: 07-03-2023 take 5 mg by mouth t wice daily as needed 5 mg, Oral, 2 TIMES DAILY PRN, Starting on Sat07/03/23 at 1750, Until Discontinued, Muscle spasms Start: 05-21-2023 take 1 tablet by yadira twice daily as needed for muscle spasms [...] Refills(s) 0 Start Date: 01/19/12 Status: Ordered 12 hr dextromethorphan hydrobromide 60 mg / guaiFENesin 1200 mg extended release oral tablet (1 source) Uncompetitive V-mnivok-E-aspartate Receptor Antagonist, Sigma-1 Agonist Start: 04-18-2021 take 1 tablet by mouth every twelve hours as needed for cough Dextromethorphan-guaiFENesin 60-1200 MG TB12 Take 1 tablet by [...] a week 2 mL 5 05/21/2023 Active Dulaglutide (TRULICITY) 4.5 MG/0.5ML SOPN (1 source) Start: 08-27-2023 Dulaglutide (TRULICITY) 4.5 MG/0.5ML SOPN Inject 4.5 mg into the skin once a week 2 mL 2 08/27/2023 Active empagliflozin 10 mg oral tablet (2 sources) Sodium-Glucose Cotransporter 2 Inhibitor Start: 06-20-2023 take [...] TID, # 90 tab(s), Refills(s) 0, Pharmacy: [facility] #37, 175.3, cm, 08/09/22 15:05:00 EDT, Height/Length [...] notify provider. Start: 03-20-2020 15 g, Oral, [place] N, Low blood sugar, Starting 03/20/20 at [...] week(s), # 28 tab(s), Refills(s) 0, Pharmacy: [facility] #37, 175.3, cm, 08/09/22 15:05:00 EDT, Height/Length [...] Refill(s) 0 Start Date: 01/19/12 Status: Ordered 3 ml insulin aspart, human 100 unt/ml pen injector (13 sources) Insulin Analog Start: 05-21-2023 insulin aspart [...] ml insulin degludec 100 unt/ml pen injector (20 sources) Insulin Analog Start: 07-10-2023 TRESIBA FLEXTO UCH 100 UNIT/ML SOPN Inject 80 Units into the skin daily 15 mL 0 07/10/2023 Active Start: 06-25-2023 TRESIBA FLEXTO UCH 100 UNIT/ML [...] Active insulin glargine 100 unt/ml injectable solution (16 sources) Insulin Analog Start: 07-03-2023 insulin glargi ne (LANTUS) injection vial 56 Units Start: 08-12-2022 inject 20 [IU] by colon bcutaneous injection at bedtime insulin glargine 100 units/mL SubQ Ana 10 mL 20 unit(s), SubCutaneous, Bedtime, # 15 mL, Refills(s) 0, Pharmacy: [facility] #37, 175.3, cm, 08/09/22 15:05:00 EDT, Height/Length [...] Bedtime, # 15 mL, Refills(s) 0, Pharmacy: [facility] #37, 175.3, cm, 08/09/22 15:05:00 EDT, Height/Length [...] units, # 15 mL, Refills(s) 0, Pharmacy: [facility] #37, 175.3, cm, 08/09/22 15:05:00 EDT, Height/Length [...] if B... Start Date: 08/11/22 Status: Ordered T-fkfmxubcbtbe-I1-B12 (METANX) 3-90.314-2-35 MG CAPS capsule (19 sources) Start: 03-26-2020 take 1 capsule by mouth once daily, then take 3-90.314 capsules by mouth Z-ylqexoqjlyzv-Z4-B12 (METANX) 3-90.314-2-35 MG CAPS capsule Take 1 capsule by mouth daily 30 capsule 1 03/26/2020 Active S-mvqqejgriqkb-U3-B12 3-35-2 mg (METANX) capsule (1 source) Start: 03-25-2020 R-uwjiowgagqbw-G2-B12 3-35-2 mg (METANX) capsule lactobacillus rhamnosus gg [id number] unt oral capsule (20 sources) Start: 03-26-2020 take 1 capsule by mouth twice daily at mealtime lactobacillus (CULTURELLE) capsule Take 1 capsule by mouth 2 times daily (with meals) 60 capsule 1 03/26/2020 Active Start: 03-24-2020 lactobacillus (CULTURELLE) capsule 1 capsule levoFLOXacin 500 mg oral tablet (6 sources) Quinolone Antimicrobial Start: 10-08-2023 End: 10-18-2023 take 1 tablet by mouth once daily levoFLOXacin (LEVAQUIN) 500 MG tablet Take 1 tablet by mouth daily for 10 days 10 tablet 0 10/08/2023 10/18/2023 Active Start: 06-30-2022 End: 07-10-2022 take 1 tablet [...] BID, # 60 tab(s), Refills(s) 0, Pharmacy: [facility] #37, 175.3, cm, 08/09/22 15:05:00 EDT, Height/Length Dosing, 96, kg, 08/09/22 15:05:00 EDT, Weight Dosing Start Date: 08/11/22 Status: Ordered Start: 08-11-2022 take 1 tablet by yadira th at bedtime metformin 500 mg ER Tab 500 mg = 1 tab(s), Oral, Bedtime, # 30 tab(s), Refills(s) 0, Pharmacy: [facility] #37, 175.3, cm, 08/09/22 15:05:00 EDT, Height/Length [...] Daily, # 15 tab(s), Refills(s) 0, Pharmacy: [facility] #37, 175.3, cm, 08/09/22 15:05:00 EDT, Height/Length Dosing, 96, kg, 08/09/22 15:05:00 EDT, Weight Dosing Start Date: 08/12/22 Status: Ordered Misc. Devices (WALKER WHEELS) MISC (3 sources) Start: 03-26-2020 Misc. Devices (WALKER WHEELS) MISC Indications: Osteomyelitis of right foot, unspecified type (HCC) , Cellulitis of right foot 1 each by Does not apply route once for 1 dose 1 each 0 03/26/2020 Active Multiple Vitamin (MULTIVITAMIN) TABS tablet (5 sources) Start: 06-30-2022 take 1 tablet by [...] Start: 08-17-2019 take 1 tablet by yadira th twice daily pramipexole (MIRAPEX) 0.5 MG tablet TAKE 1 TABLET BY MOUTH TWICE DAILY 180 tablet 1 08/17/2019 Active Start: 01-20-2019 take 1 tablet by yadira th twice daily pramipexole (MIRAPEX) 0.5 MG tablet TAKE 1 TABLET BY MOUTH TWICE DAILY 180 tablet 1 01/20/2019 Active Start: 09-23-2018 take 1 tablet by yadira th twice daily pramipexole (MIRAPEX) 0.5 MG tablet TAKE 1 TABLET BY MOUTH TWICE DAILY 60 tablet 0 09/23/2018 Active pregabalin 100 mg oral capsule (20 sources) Start: 08-27-2023 End: 02-26-2024 take 1 capsule by mouth in the morning, then take 2 capsules by mouth at bedtime pregabalin (LYRICA) 100 MG capsule Indications: Type 2 diabetes mellitus with diabetic polyneuropathy, with long-term current use of insulin (HCC) TAKE 1 CAPSULE BY MOUTH IN THE MORNING and in the afternoon, then TAKE 2 CAPSULES 1 to 2 (TWO) hours before bedtime 120 capsule 5 08/27/2023 02/26/2024 Active Start: 03-19-2023 End: 12-31-2023 take 1 capsule [...] 12/31/2023 Active Start: 11-17-2021 End: 10-28-2022 take 1 capsule by mouth three times daily, then take 1 capsule by mouth three times daily pregabalin 75 mg Cap 1, Oral, TID, TAKE 1 CAPSULE BY MOUTH THREE TIMES DAILY Start Date: 10/02/22 Status: Ordered Start: 04-13-2020 End: 10-11-2021 take 1 capsule [...] DAILY 90 capsule 0 09/23/2018 10/23/2018 Active Promethazine (1 source) Phenothiazine Start: 03-20-2020 promethazine ( PHENERGAN) tablet 12.5 mg repaglinide 1 mg oral tablet (20 sources) Glinide Start: 08-11-2022 repaglinide 1 mg Tab 1 mg = 1 tab(s), Oral, TIDAC, # 90 tab(s), Refills(s) 0, Pharmacy: [facility] #[id number], 175.3, cm, 08/09/22 15:05:00 EDT, Height/Length Dosing, 96, kg, 08/09/22 15:05:00 EDT, Weight Dosing Start Date: 08/11/22 Status: Ordered Respiratory Therapy Supplies (NEBULIZER/TUBING/MOUTHPIE CE) KIT (20 sources) Start: 08-27-2023 Respiratory Th erapy Supplies (NEBULIZER/TUBING/MOUTHPI ERASMO) KIT Adult mask for nebulizer 1 kit 0 08/27/2023 Active Start: 04-04-2022 Respiratory Th erapy Supplies (NEBULIZER/TUBING/MOUTHPIECE) KIT 1 kit by Does not apply route daily as needed (SOB) Adult mask please 1 kit 0 04/04/2022 Active Start: 10-23-2018 Respiratory Th erapy Supplies (NEBULIZER/TUBING/MOUTHPIECE) KIT Indications: Chronic obstructive pulmonary disease with acute exacerbation (HCC) 1 kit by Does not apply route every 4 hours as needed (SOB) Adult sized mask please 1 kit 0 10/23/2018 Active rOPINIRole 4 mg oral tablet (20 sources) Nonergot Dopamine Agonist Start: 08-27-2023 take 1 tablet by mouth once daily rOPINIRole (REQUIP) 4 MG tablet Take 1 tablet by mouth nightly 30 tablet 5 08/27/2023 Active Start: 07-03-2023 take 3 mg by mouth once daily 3 mg, Oral, NIGHTLY, First dose on Sat07/03/23 at 2100, Until Discontinued Start: 10-02-2022 take 3 tablets by mo uth once daily ropinirole 1 mg Tab 3 mg = 3 tab(s), Oral, Bedtime, TAKE 3 TABLETS BY MOUTH NIGHTLY Start Date: 10/02/22 Status: Ordered Start: 06-26-2022 take 3 mg by mouth [...] Active Start: 11-15-2020 take 3 tablets by mo uth once daily rOPINIRole (REQUIP) 1 MG tablet Take 3 tablets by mouth nightly 90 tablet 5 11/15/2020 Active sildenafil 20 mg oral tablet (18 [...] Refills(s) 0 Start Date: 01/19/12 Status: Ordered tiotropium 0.018 mg inhalation powder (9 sources) Anticholinergic Start: 05-21-2023 take 1 capsule [...] 1 puff(s) by inhalation once daily Umeclidinium [place] (INCRUSE ELLIPTA) 62.5 MCG/INH AEPB 1 puff inhaled daily 90 each 1 01/20/2019 Active Start: 09-23-2018 take 1 puff(s) by in halation once daily Umeclidinium [place] (INCRUSE ELLIPTA) 62.5 MCG/INH AEPB 1 puff [...] take 1 tablet by mouth once daily vitamin B-12 (CYANOCOBALAMIN) 1000 MCG tablet Take 1 tablet by mouth daily 90 tablet 3 11/16/2022 Active Start: 08-11-2022 take 1 tablet by yadira th once daily cyanocobalamin 1000 mcg Tab 1,000 mcg = 1 tab(s), Oral, Daily, # 30 tab(s), Refills(s) 0, Pharmacy: [facility] #37, 175.3, cm, 08/09/22 15:05:00 EDT, Height/Length Dosing, 96, kg, 08/09/22 15:05:00 EDT, Weight Dosing Start Date: 08/11/22 Status: Ordered Completed/Discontinued Medications Medication Drug Class(es) Dates Sig (Normalized) Sig (Original) amoxicillin 875 mg / clavulanate 125 mg oral tablet (5 sources) Penicillin-class Antibacterial Start: 09-03-2023 End: 10-08-2023 take 1 tablet by mouth twice daily amoxicillin-clavul anate (AUGMENTIN) 875-125 MG per tablet TAKE 1 TABLET BY MOUTH TWICE DAILY for 14 days 0 09/03/2023 10/08/2023 Discontinued (LIST CLEANUP) Start: 06-21-2022 End: 07-01-2022 take 1 tablet [...] days 20 tablet 0 04/18/2021 04/28/2021 Active ampicillin-sulbactam (UNASYN) 3,000 mg in sodium chloride 0.9 % 100 mL IVPB (mini-bag) (1 source) Start: 06-21-2022 End: 06-21-2022 ampicillin-sulbactam (UNASYN) 3,000 mg in sodium chloride 0.9 % 100 mL IVPB (mini-bag) cefepime (MAXIPIME) 2,000 mg in sterile water 20 mL IV syringe (1 source) Start: 06-26-2022 End: 06-27-2022 cefepime (MAXIPIME) 2,000 mg in sterile water 20 mL IV syringe DULoxetine 30 mg delayed release oral capsule [...] 60 mg, Oral, DAILY, First dose on 06/26/22 at 1830, Until Discontinued Do not crush [...] 60 mg, Oral, DAILY, First dose on 03/20/20 at 0900 Do not crush or break. May add contents of capsule to apple juice or apple sauce, but not chocolate. Start: 04-21-2019 take 1 capsule by mo uth once [...] in 15 minutes x2 and notify provider. sodium hypochlorite 2.5 mg/ml topical solution (3 sources) Start: 10-17-2022 End: 10-08-2023 HYSEPT 0.25 % SOLN Apply once daily for infected wound as directed for 14 days 0 10/17/2022 10/08/2023 Discontinued (LIST CLEANUP) insulin lispro 100 unt/ml injectable solution (14 sources) Insulin Analog Start: 07-03-2023 0-4 Units, Sub CUTAneous, NIGHTLY, First dose on Sat07/03/23 at 2100, Until Discontinued If continuous tube feedings/TPN/NPO, give correction dose based on result, no reduction in dose. If eating or bolus tube feeding: Correctiv e Bedtime Algorithm Glucose: Dose: 70-299 No Insulin [...] units, # 15 mL, Refills(s) 0, Pharmacy: [facility] #[id number], 175.3, cm, 08/09/22 15:05:00 EDT, Height/Length [...] surgery 1 09/23/2018 11/30/2020 Discontinued (LIST CLEANUP) E-ejehmpoctadm-M8-B12 3-35-2 mg (METANX) capsule (Patient Supplied) (2 sources) Start: 07-03-2023 take 1 capsule by mouth once daily 1 capsule, Oral, DAILY, First dose on Sat07/03/23 at 1815, Until Discontinued Start: 06-26-2022 take 1 capsule by mo uth once daily 1 capsule, Oral, DAILY, First dose on Sat06/26/22 at 1830, Until Discontinued multivitamin 1 tablet (2 sources) Start: 07-03-2023 take 1 tablet by mouth once daily 1 tablet, Oral, DAILY, First dose on Sat07/03/23 at 1815, Until Discontinued Start: 06-29-2022 multivitamin 1 tablet mupirocin 0.02 mg/mg topical ointment (1 source) RNA Synthetase Inhibitor Antibacterial Start: 07-09-2023 End: 10-08-2023 mupirocin (BACTROBAN) 2 % ointment naproxen 500 mg oral tablet (20 sources) [...] at 0830, Until Discontinued polyethylene glycol 3350 51209 mg powder for oral solution (3 sources) Osmotic Laxative Start: 07-03-2023 17 g, Oral, DAILY PRN, Starting on Sat07/03/23 at 1750, Until Discontinued, Constipation First line therapy for constipation Start: 06-26-2022 17 g, Oral, DA MAREN PRN, Starting on Sat06/26/22 at 1820, Until Discontinued, Constipation First line therapy for constipation Start: 03-20-2020 17 g, Oral, DA MAREN PRN, Constipation, Starting Sat03/20/20 at 0358 First line therapy for constipation polymyxin b 47057 unt/ml / trimethoprim 1 mg/ml ophthalmic solution (9 sources) Dihydrofolate Reductase Inhibitor Antibacterial, Polymyxin-class Antibacterial Start: 09-23-2018 End: 11-30-2020 take 1 drop(s) into the eye(s) four times daily trimethoprim-polymyxin b (POLYTRIM) 51478-9.1 UNIT/ML-% ophthalmic solution INSTILL 1 DROP IN [...] - - start the day of surgery 09/23/2018 11/30/2020 Discontinued (LIST CLEANUP) 5 ml sodium chloride 9 mg/ml injection (10 sources) Start: 07-03-2023 take 1 dose intravenously twice daily 5-40 mL, IntraVENous, EVERY 12 HOURS SCHEDULED (2 times per day), First dose on Sat07/03/23 at 2100, Until Discontinued For Line Patency: Peripheral IV = 5 mL; Midline or Central Line = 10 mL/lumen.&nbs p; If following IV push medication, administer flush at same rate as the IV push. Flush volume is determined by type of infusion therapy being given. &nbsp ;For non-viscous solutions use: Periphe ral IV = 5 mL Midline or Central Line = 10 mL/lumen &nb sp;For viscous solutions (i.e. blood components, parenteral nutrition, contrast media, or after obtaining blood sample) use: Periphe ral IV = 10 mL Midline or Central [...] IV line use, Starting 03/20/20 at 0358 sulfamethoxazole 800 mg / trimethoprim 160 mg oral tablet (2 sources) Dihydrofolate Reductase Inhibitor Antibacterial, Sulfonamide Antimicrobial Start: 09-03-2023 End: 10-08-2023 take 1 tablet by mouth twice daily sulfamethoxazole-trimethoprim (BACTRIM DS;SEPTRA DS) 800-160 MG per tablet TAKE 1 TABLET BY MOUTH TWICE DAILY for 14 days 0 09/03/2023 10/08/2023 Discontinued (LIST CLEANUP) Start: 11-30-2020 End: 12-10-2020 take 1 tablet by mouth twice daily sulfamethoxazole-trimethoprim (BACTRIM D S) 800-160 MG per tablet Take 1 tablet by mouth 2 times daily for 10 days 20 tablet 0 11/30/2020 12/10/2020 Active vancomycin 750 mg injection (1 source) Glycopeptide [...] Problem Date Documented Da te Episodic/Chronic Acute bronchitis (1 source) Subacute bronchitis; Translations: [Acute bronchitis, unspecified] Episodic Chronic obstructive pulmonary disease and bronchiectasis (20 sources) Chronic obstructive lung disease; Translations: [Mixed simple and mucopurulent chronic bronchitis] Onset: 6 Resolved: 1 05-13-2015 Chronic Chronic ulcer of skin (8 sources) Chronic ulcer of foot; Translations: [Non-pressure chronic ulcer of other part of unspecified foot with unspecified severity] Onset: 3 Resolved: 4 Chronic Deficiency and other anemia (20 sources) Anemia; Translations: [Anemia, unspecified] Onset: 3 Episodic Deficiency and other anemia (1 source) Anemia, unspecified; Translations: [Anemia, unspecified] Onset: 4 Episodic Diabetes mellitus with complications (20 sources) Diabetic polyneuropathy; Translations: [Type II diabetes mellitus uncontrolled] Onset: 5 02-22-2015 Chronic Diabetes mellitus without complication (2 sources) [...] [Bilateral photokeratitis of eyes] Onset: 3 Episodic Malaise and fatigue (1 source) Weakness; Translations: [Weakness] Onset: 4 Episodic Mood disorders (20 sources) Moderate major depression, single episode; Translations: [Major depressive disorder, single episode, moderate] Onset: 5 02-22-2015 Chronic Other aftercare (1 source) Long-term current use of oral hypoglycemic medication; Translations: [emt intermediate (current) use of oral hypoglycemic drugs] Episodic Other aftercare (1 source) emt intermediate (current) use of insulin; Translations: [emt intermediate (current) use of insulin] Onset: 4 Episodic [...] and foot] Chronic Other non-traumatic joint disorders (8 sources) Charcot's arthropathy; Translations: [Charcot's joint, right ankle and foot] Onset: 3 Chronic Pneumonia (except that caused by tuberculosis or sexually transmitted disease) (3 sources) Pneumonia; Translations: [Pneumonia, unspecified organism] Onset: 3 [...] Problem Classification Problem Date Documented Date Episodic/Chronic Acute and unspecified renal failure (3 sources) Acute renal failure syndrome; Translations: [Acute kidney failure, unspecified] Onset: 08-09-2022 Episodic Cardiac dysrhythmias (20 sources) Atrial fibrillation with rapid ventricular response; Translations: [Unspecified atrial fibrillation] Onset: 05-26-2016 Resolved: 09-23-2018 09-23-2018 Chronic Diabetes mellitus without complication (20 sources) Diabetes mellitus; Translations: [Type 2 diabetes mellitus without complications] Onset: 10-11-2011 Resolved: 04-17-2020 10-11-2011 Chronic Infective arthritis and osteomyelitis (except that caused by tuberculosis or sexually transmitted disease) (7 sources) Osteomyelitis of forefoot; Translations: [Osteomyelitis, unspecified] [...] Onset: 03-20-2020 Resolved: 04-17-2020 04-17-2020 Episodic Unclassified (3 sources) Onset: 03-19-2023 03-19-2023 Results Test Name Value Interpretation Reference Range Facility Glucose,Whole Bloodon 2023 Glucose [Mass/Vol] 108 mg/dL High 65-99 [facility] Glucose [Mass/Vol] 208 mg/dL High 65-99 [facility] Glucose [Mass/Vol] 191 mg/dL High 65-[address] [place] [address] Glucose [Mass/Vol] 192 mg/dL High 65-99 [facility] CBC with Diffon 10-17-2023 Abs. Basophil 0.03 k/uL Normal 0.00-0.20 [facility] Comment on above: Performed By: #### U AX #### [facility] [address] [place] [address] Lead Handler: Anibal Marquis MD Abs.Imm.Granulocyte 0.04 k/uL Normal 0.00-0.30 [facility] Comment on above: Performed By: #### U AX #### [facility] [address] [place] [address] Lead Handler: Anibal Marquis MD Abs.Neutrophil (Seg) 7.76 k/uL High 2.1-6.5 [facility] Comment on above: Performed By: #### U AX #### [facility] [address] [place] [address] Lead Handler: Anibal Marquis MD Basophils/100 WBC (Bld) 0 % Normal 0-2 [facility] Comment on above: Performed By: #### U AX #### [facility] [address] [place] [address] Lead Handler: Anibal Marquis MD Eosinophils (Bld) [#/Vol] 0.12 10*3/uL Normal 0.00-0.40 [facility] Comment on above: Performed By: #### U AX #### [facility] [address] [place] [id number] Lead Handler: Anibal Marquis MD Eosinophils/100 WBC (Bld) 1 % Normal 0-5 [facility] Comment on above: Performed By: #### U AX #### [facility] [address] [place], [place] [id number] Lead Handler: Anibal Marquis MD Erythrocyte distribution width (RBC) [Ratio] 13.6 % Normal 12.1-15.2 [facility] Comment on above: Performed By: #### U AX #### [facility] [address] [place], [place] [id number] Lead Handler: Anibal Marquis MD Hematocrit (Bld) [Volume fraction] 28.1 % Low 41.0-53.0 [facility] Comment on above: Performed By: #### U AX #### [facility] [address] [place] [address] Lead Handler: Anibal Marquis MD Hemoglobin (Bld) [Mass/Vol] 8.9 g/dL Low 13.5-17.5 [facility] Comment on above: Performed By: #### U AX #### [facility] [address] [place] [address] Lead Handler: Anibal Marquis MD Immature granulocytes/100 WBC (Bld) 0 % Normal 0-5 [facility] Comment on above: Performed By: #### U AX #### [facility] [address] [place], [place] [id number] Lead Handler: Anibal Marquis MD Lymphocytes (Bld) [#/Vol] 1.85 10*3/uL Normal 1.00-4.80 [facility] Comment on above: Performed By: #### U AX #### [facility] [address] [place], [place] [id number] Lead Handler: Anibal Marquis MD Lymphocytes/100 WBC (Bld) 18 % Normal 13-44 [facility] Comment on above: Performed By: #### U AX #### [facility] [address] [place] [address] Lead Handler: Anibal Marquis MD MCH (RBC) [Entitic mass] 28.0 pg Normal 26.0-34.0 [facility] Comment on above: Performed By: #### U AX #### [facility] [address] [place] [id number] Lead Handler: Anibal Marquis MD MCHC (RBC) [Mass/Vol] 31.7 g/dL Normal 31.0-37.0 [facility] Comment on above: Performed By: #### U AX #### [facility] [address] [place] [address] Lead Handler: Anibal Marquis MD MCV (RBC) [Entitic vol] 88.4 fL Normal 80.0-100.0 [facility] Comment on above: Performed By: #### U AX #### [facility] [address] [place] [address] Lead Handler: Anibal Marquis MD Monocytes (Bld) [#/Vol] 0.52 10*3/uL Normal 0.00-1.00 [facility] Comment on above: Performed By: #### U AX #### [facility] [address] [place] [id number] Lead Handler: Anibal Marquis MD Monocytes/100 WBC (Bld) 5 % Normal 5-9 [facility] Comment on above: Performed By: #### U AX #### [facility] [address] [place] [address] Lead Handler: Anibal Marquis MD Neutrophil (Seg) 75 % Normal 39-75 [facility] Comment on above: Performed By: #### U AX #### [facility] [address] [place] [address] Lead Handler: Anibal Marquis MD Platelet mean volume (Bld) [Entitic vol] 8.8 fL Normal 6.0-12.0 [facility] Comment on above: Performed By: #### U AX #### [facility] [address] [place] [address] Lead Handler: Anibal Marquis MD Platelets (Bld) [#/Vol] 528 10*3/uL High 140-450 [facility] Comment on above: Performed By: #### U AX #### [facility] [address] [place], [place] [id number] Lead Handler: Anibal Marquis MD RBC (Bld) [#/Vol] 3.18 10*6/uL Low 4.50-5.90 [facility] Comment on above: Performed By: #### U AX #### [facility] [address] [place] [address] Lead Handler: Anibal Marquis MD WBC (Bld) [#/Vol] 10.3 10*3/uL Normal 3.5-11.0 [facility] Comment on above: Performed By: #### U AX #### [facility] [address] [place] [address] Lead Handler: Anibal Marquis MD Comp Metabolic Pr/rfx MGon 0 10-17-2023 Albumin [Mass/Vol] 3.0 g/dL Low 3.5-5.2 [facility] Comment on above: Performed By: #### U AX #### [facility] [address] [place] [address] Lead Handler: Anibal Marquis MD Alkaline Phos 211 U/L High 40-129 [facility] Comment on above: Performed By: #### U AX #### [facility] [address] [place] [address] Lead Handler: Anibal Marquis MD ALT [Catalytic activity/Vol] 16 U/L Normal 5-41 [facility] Comment on above: Performed By: #### U AX #### [facility] [address] [place], [place] [id number] Lead Handler: Anibal Marquis MD Anion gap [Moles/Vol] 13 mmol/L Normal 9-17 [facility] Comment on above: Performed By: #### U AX #### [facility] [address] [place], [place] [id number] Lead Handler: Anibal Marquis MD AST [Catalytic activity/Vol] 17 U/L Normal <40 [facility] Comment on above: Performed By: #### U AX #### [facility] [address] [place], [place] [id number] Lead Handler: Anibal Marquis MD Bilirubin [Mass/Vol] 0.3 mg/dL Normal 0.3-1.2 [facility] Comment on above: Performed By: #### U AX #### [facility] [address] [place], [place] [id number] Lead Handler: Anibal Marquis MD BUN/CRE Ratio 18 Normal 9-20 [facility] Comment on above: Performed By: #### U AX #### [facility] [address] [place], [place] [id number] Lead Handler: Anibal Marquis MD Calcium [Mass/Vol] 8.9 mg/dL Normal 8.6-10.4 [facility] Comment on above: Performed By: #### U AX #### [facility] [address] [place] [address] Lead Handler: Anibal Marquis MD Chloride [Moles/Vol] 99 mmol/L Normal 98-107 [facility] Comment on above: Performed By: #### U AX #### [facility] [address] [place] [address] Lead Handler: Anibal Marquis MD CO2 [Moles/Vol] 22 mmol/L Normal 20-31 [facility] Comment on above: Performed By: #### U AX #### [facility] [address] [place] [address] Lead Handler: Anibal Marquis MD Creatinine [Mass/Vol] 1.2 mg/dL Normal 0.7-1.2 [facility] Comment on above: Performed By: #### U AX #### [facility] [address] [place] [address] Lead Handler: Anibal Marquis MD GFR/1.73 sq M.predicted among non-blacks MDRD (S/P/Bld) [Vol rate/Area] 68 mL/min/{1.73_m2} Normal >60 [facility] Comment on above: Result Comment: These results [...] affects renal tubular secretion. Performed By: #### U AX #### [facility] [address] [place] [address] Lead Handler: Anibal Marquis MD Glucose [Mass/Vol] 211 mg/dL High 70-99 [facility] Comment on above: Performed By: #### U AX #### [facility] [address] [place] [address] Lead Handler: Anibal Marquis MD Potassium [Moles/Vol] 5.0 mmol/L Normal 3.7-5.3 [facility] Comment on above: Performed By: #### U AX #### [facility] [address] [place] [address] Lead Handler: Anibal Marquis MD Protein [Mass/Vol] 7.8 g/dL Normal 6.4-8.3 [facility] Comment on above: Performed By: #### U AX #### [facility] [address] [place] [address] Lead Handler: Anibal Marquis MD Sodium [Moles/Vol] 134 mmol/L Low 135-144 [facility] Comment on above: Performed By: #### U AX #### [facility] [address] [place] [address] Lead Handler: Anibal Marquis MD Urea nitrogen [Mass/Vol] 21 mg/dL Normal 8-23 [facility] Comment on above: Performed By: #### U AX #### [facility] [address] [place] [address] Lead Handler: Anibal Marquis MD Glucose,Whole Bloodon 2023 Glucose [Mass/Vol] 304 mg/dL High 65-99 [facility] Glucose [Mass/Vol] 118 mg/dL High 65-99 [facility] Glucose [Mass/Vol] 119 mg/dL High -[address] [place] [address] Glucose [Mass/Vol] 71 mg/dL Normal -[address] [place] [address] Glucose [Mass/Vol] 274 mg/dL High -[address] [place] [address] Hemoglobin A1Con 10-17-2023 Glucose [Mass/Vol] 243 mg/dL Normal [facility] Comment on above: Result Comment: The ADA and AACC recommend providing the estimated average glucose result to permit better patient understanding of their HBA1c result. Performed By: #### U AX #### [facility] [address] [place] [address] Lead Handler: Anibal Marquis MD HbA1c (Bld) [Mass fraction] 10.1 % High 4.0-6.0 [facility] Comment on above: Performed By: #### U AX #### [facility] [address] [place] [address] Lead Handler: Anibal Marquis MD UA w/Reflex Cultureon 2023 Bilirubin, SemiQt,Ur Negative Normal NEG [facility] Comment on above: Performed By: #### U AX #### [facility] [address] [place], [place] [id number] Lead Handler: Anibal Marquis MD Blood, Urine Negative Normal NEG [facility] Comment on above: Performed By: #### U AX #### [facility] [address] [place], [place] 2198190 Lead Handler: Anibal Marquis MD Clarity (U) Clear Normal CLEAR [facility] Comment on above: Performed By: #### U AX #### [facility] [address] [place], [place] 1860490 Lead Handler: Anibal Marquis MD Color (U) Yellow Normal YEL [facility] Comment on above: Performed By: #### U AX #### [facility] [address] [place], [place] [id number] Lead Handler: Anibal Marquis MD Comment Normal [facility] Comment on above: Performed By: #### U AX #### [facility] [address] [place], [place] 1518690 Lead Handler: Anibal Marquis MD Glucose Ql (U) 1000 mg/dL Abnormal NEG [facility] Comment on above: Performed By: #### U AX #### [facility] [address] [place], [place] 0337190 Lead Handler: Anibal Marquis MD Ketones Ql (U) Negative Normal NEG [facility] Comment on above: Performed By: #### U AX #### [facility] [address] [place], [place] 60860[address] Lead Handler: Anibal Marquis MD Leukocyte esterase Test strip Ql (U) Negative Normal NEG [facility] Comment on above: Performed By: #### U AX #### [facility] [address] [place], [place] 5646390 Lead Handler: Anibal Marquis MD Nitrite,Ur Negative Normal NEG [facility] Comment on above: Performed By: #### U AX #### [facility] [address] [place], [place] 0043790 Lead Handler: Anibal Marquis MD PH,Ur 5.0 Normal 5.0-8.0 [facility] Comment on above: Performed By: #### U AX #### [facility] [address] [place], [place] [id number] Lead Handler: Anibal Marquis MD Protein Ql (U) Negative Normal NEG [facility] Comment on above: Performed By: #### U AX #### [facility] [address] [place] [address] Lead Handler: Anibal Marquis MD Spec. [place],Ur 1.010 Normal 1.005-1.030 [facility] Comment on above: Performed By: #### U AX #### [facility] [address] [place] [address] Lead Handler: Anibal Marquis MD Urobilinogen,Ur Normal Normal 0.0-1.0 [facility] Comment on above: Performed By: #### U AX #### [facility] [address] [place], [place] [id number] Lead Handler: Anibal Marquis MD Cult, Bloodon 10-14-2023 Cult, Blood Specimen Description .BLOOD Special Requests 10ML RAC Culture NO GROWTH 6 DAYS Report Status FINAL 10/14/2023 Normal [facility] Comment on above: Performed By: #### F LESLEY FE #### [address] [address] Lead Handler: Tai Albarran MD #### BEATA ROLON #### [facility] [address] [place], [place] 6862890 Lead Handler: Anibal Marquis MD Cult,Bloodon 10-14-2023 Cult,Blood Specimen Description .BLOOD Special Requests 10ML LAC Culture NO GROWTH 6 DAYS Report Status FINAL 10/14/2023 Normal [facility] Comment on above: Performed By: #### F LESLEY, FE #### [facility] [address] [place], [place] 2138408 Lead Handler: Tai Albarran MD #### CP, CDP #### [facility] [address] [place], [place] [address]48[address] Lead Handler: Anibal Marquis MD Basic Metabolic Profon 10-10 Anion gap [Moles/Vol] 14 mmol/L Normal 9-17 [facility] Comment on above: Performed By: #### C DP, BMP ####[facility] [address] [place] [address] Lab Director: Anibal Marquis MD#### GLYHGB ####[facility] [address] [place] [address] Lab Director: Tai Albarran MD BUN/CRE Ratio 13 Normal - [facility] Comment on above: Performed By: #### C DP, BMP ####[facility] [address] [place] [address] Lab Director: Anibal Marquis MD#### GLYHGB ####[facility] [address] [place] [address] Lab Director: Tai Albarran MD Calcium [Mass/Vol] 8.9 mg/dL Normal 8.6-10.4 [facility] Comment on above: Performed By: #### C DP, BMP ####[facility] [address] [place] [address] Lab Director: Anibal Marquis MD#### GLYHGB ####[facility] [address] [place], [place] 2076408 Lab Director: Tai Albarran MD Chloride [Moles/Vol] 102 mmol/L Normal 98-107 [facility] Comment on above: Performed By: #### C DP, BMP ####[facility] [address] [place], [place] 0191090 Lab Director: Anibal Marquis MD#### GLYHGB ####[facility] [place] [address] Lab Director: Tai Albarran MD CO2 [Moles/Vol] 23 mmol/L Normal 20-31 [facility] Comment on above: Performed By: #### C DP, BMP ####[facility] [address] [place], [place] 76167[address] Lab Director: Anibal Marquis MD#### GLYHGB ####[facility] [place] [address] Lab Director: Tai Albarran MD Creatinine [Mass/Vol] 1.5 mg/dL High 0.7-1.2 [facility] Comment on above: Performed By: #### C DP, BMP ####[facility] [address] [place], [place] 6957490 Lab Director: Anibal Marquis MD#### GLYHGB ####[facility] [place] [address] Lab Director: Tai Albarran MD GFR/1.73 sq M.predicted among non-blacks MDRD (S/P/Bld) [Vol rate/Area] 52 mL/min/{1.73_m2} Low >60 [facility] Comment on above: Result Comment: These results [...] secretion. Performed By: #### C DP, BMP ####[facility] [address]km[address] [place] [address] Lab Director: Anibal Marquis MD#### GLYHGB ####[facility] [place] [address] Lab Director: Tai Albarran MD Glucose [Mass/Vol] 265 mg/dL High 70-99 [facility] Comment on above: Performed By: #### C ROSY BMP ####[facility] [address] [place] [address] Lab Director: Anibal Marqusi MD#### GLYHGB ####[address] [place] [place] [address] Lab Director: Tai Albarran MD Potassium [Moles/Vol] 4.2 mmol/L Normal 3.7-5.3 [facility] Comment on above: Performed By: #### C ROSY, BMP ####[facility] [address]307 [place] [address] Lab Director: Anibal Marquis MD#### GLYHGB ####[address] [place] [address] Lab Director: Tai Albarran MD Sodium [Moles/Vol] 139 mmol/L Normal 135-144 [facility] Comment on above: Performed By: #### C ROSY, BMP ####[facility] [address] [place], [place] [phone] Director: Anibal Marquis MD#### GLYHGB ####[address] [place] [address] Lab Director: Tai Albarran MD Urea nitrogen [Mass/Vol] 20 mg/dL Normal 8-23 [facility] Comment on above: Performed By: #### C DP, BMP ####[facility] [address] [place], [place] [address])[phone] Director: Anibal Marquis MD#### GLYHGB ####[address] [address])[phone] Director: Tai Albarran MD CBC with Diffon 10-11-2023 Abs. Basophil 0.02 k/uL Normal 0.00-0.20 [facility] Comment on above: Performed By: #### C DP, BMP ####[facility] [address] [place] [address]([facility])[phone] Director: Anibal Marquis MD#### GLYHGB ####[place], [place] [address])[phone] Director: Tai Albarran MD Abs.Imm.Granulocyte 0.02 k/uL Normal 0.00-0.30 [facility] Comment on above: Performed By: #### C DP, BMP ####[facility] [address] [place], [place] [address])[phone] Director: Anibal Marquis MD#### GLYHGB ####[place], [place] [address])[phone] Director: Tai Albarran MD Abs.Neutrophil (Seg) 5.82 k/uL Normal 2.1-6.5 [facility] Comment on above: Performed By: #### C DP, BMP ####[facility] [address] [place], [place] [address])[phone] Director: Anibal Marquis MD#### GLYHGB ####[place], [place] [address])[phone] Director: Tai Albarran MD Basophils/100 WBC (Bld) 0 % Normal 0-2 [facility] Comment on above: Performed By: #### C DP, BMP ####[facility] [address] [place] [address]([facility])[phone] Director: Anibal Marquis MD#### GLYHGB ####[address] [place] [address] Lab Director: Tai Albarran MD Eosinophils (Bld) [#/Vol] 0.07 10*3/uL Normal 0.00-0.40 [facility] Comment on above: Performed By: #### C DP, BMP ####[facility] [address] [place] [address]27[address] Lab Director: Anibal Marquis MD#### GLYHGB ####[address] 0395[address] Lab Director: Tai Albarran MD Eosinophils/100 WBC (Bld) 1 % Normal 0-5 [facility] Comment on above: Performed By: #### C DP, BMP ####[facility] [address] [place], [place] 7963790 Lab Director: Anibal Marquis MD#### GLYHGB ####[address] [place] [address] Lab Director: Tai Albarran MD Erythrocyte distribution width (RBC) [Ratio] 13.8 % Normal 12.1-15.2 [facility] Comment on above: Performed By: #### C DP, BMP ####[facility] [address] [place] [address]27[address] Lab Director: Anibal Marquis MD#### GLYHGB ####[address] [place] [address] Lab Director: Tai Albarran MD Hematocrit (Bld) [Volume fraction] 28.3 % Low 41.0-53.0 [facility] Comment on above: Performed By: #### C DP, BMP ####[facility] [address] [place], [place] 4369290 Lab Director: Anibal Marquis MD#### GLYHGB ####[address] [place] [address] Lab Director: Tai Albarran MD Hemoglobin (Bld) [Mass/Vol] 9.2 g/dL Low 13.5-17.5 [facility] Comment on above: Performed By: #### C DP, BMP ####[facility] [address] [place], [place] 5649590 Lab Director: Anibal Marquis MD#### GLYHGB ####[address] [address] Lab Director: Tai Albarran MD Immature granulocytes/100 WBC (Bld) 0 % Normal 0-5 [facility] Comment on above: Performed By: #### C DP, BMP ####[facility] [address] [place], [place] 6006090 Lab Director: Anibal Marquis MD#### GLYHGB ####[address] [place] [address] Lab Director: Tai Albarran MD Lymphocytes (Bld) [#/Vol] 1.19 10*3/uL Normal 1.00-4.80 [facility] Comment on above: Performed By: #### C DP, BMP ####[facility] [address] [place], [place] 7856290 Lab Director: Anibal Marquis MD#### GLYHGB ####[address] [place], [place] [phone] Director: Tai Albarran MD Lymphocytes/100 WBC (Bld) 15 % Normal 13-44 [facility] Comment on above: Performed By: #### C DP, BMP ####[facility] [address] [place], [place] 2962190 Lab Director: Anibal Marquis MD#### GLYHGB ####[address] [place], [place] 8394908 Lab Director: Tai Albarran MD MCH (RBC) [Entitic mass] 29.2 pg Normal 26.0-34.0 [facility] Comment on above: Performed By: #### C DP, BMP ####[facility] [address] [place] [address]27[address] Lab Director: Anibal Marquis MD#### GLYHGB ####[address] [phone] Lab Director: Tai Albarran MD MCHC (RBC) [Mass/Vol] 32.5 g/dL Normal 31.0-37.0 [facility] Comment on above: Performed By: #### C DP, BMP ####[facility] [address] [place] [address]27[address] Lab Director: Anibal Marquis MD#### GLYHGB ####[address] [address] Lab Director: Tai Albarran MD MCV (RBC) [Entitic vol] 89.8 fL Normal 80.0-100.0 [facility] Comment on above: Performed By: #### C DP, BMP ####[facility] [id number] [place] [id number] Lab Director: Anibal Marquis MD#### GLYHGB ####[address] [place] [address] Lab Director: Tai Albarran MD Monocytes (Bld) [#/Vol] 0.67 10*3/uL Normal 0.00-1.00 [facility] Comment on above: Performed By: #### C DP, BMP ####[facility] Ugo7008 [place], [place] [id number] Lab Director: Anibal Marquis MD#### GLYHGB ####[facility] [place] [address] Lab Director: Tai Albarran MD Monocytes/100 WBC (Bld) 9 % Normal 5-9 [facility] Comment on above: Performed By: #### C DP, BMP ####[facility] Qim5868 [place], [place] [id number] Lab Director: Anibal Marquis MD#### GLYHGB ####[address] [place] [address] Lab Director: Tai Albarran MD Neutrophil (Seg) 75 % Normal 39-75 [facility] Comment on above: Performed By: #### C DP, BMP ####[facility] Dtl1505 [place] [address] Lab Director: Anibal Marquis MD#### GLYHGB ####[address] [address] Lab Director: Tai Albarran MD Platelet mean volume (Bld) [Entitic vol] 9.4 fL Normal 6.0-12.0 [facility] Comment on above: Performed By: #### C DP, BMP ####[facility] Nbv1820 [place] [address] Lab Director: Anibal Marquis MD#### GLYHGB ####[address] [place], [place] [phone] Director: Tai Albarran MD Platelets (Bld) [#/Vol] 276 10*3/uL Normal 140-450 [facility] Comment on above: Performed By: #### C DP, BMP ####[facility] Ajj6089 [place], [place] [phone] Director: Anibal Marquis MD#### GLYHGB ####[facility] [place], [place] [phone] Director: Tai Albarran MD RBC (Bld) [#/Vol] 3.15 10*6/uL Low 4.50-5.90 [facility] Comment on above: Performed By: #### C DP, BMP ####[facility] Bae5664 [place], [place] [phone] Director: Anibal Marquis MD#### GLYHGB ####[address] [place], [place] [phone] Director: Tai Albarran MD WBC (Bld) [#/Vol] 7.8 10*3/uL Normal 3.5-11.0 [facility] Comment on above: Performed By: #### C DP, BMP ####[facility] Iir7361 [place], [place] [phone] Director: Anibal Marquis MD#### GLYHGB ####[facility] [place], [place] [phone] Director: Tai Albarran MD Hemoglobin A1Con 10-11-2023 Glucose [Mass/Vol] 243 mg/dL Normal [facility] Comment on above: Result Comment: The ADA and AACC recommend providing the estimated average glucose result to permit better patient understanding of their HBA1c result. Performed By: #### C DP, BMP ####[facility] Nkx1470 [place], [place] [phone] Director: Anibal Marquis MD#### GLYHGB ####[facility] [place], [place] [phone] Director: Tai Albarran MD HbA1c (Bld) [Mass fraction] 10.1 % High 4.0-6.0 [facility] Comment on above: Performed By: #### C SHA GALLEGOS ####[facility] [address]fa[address] [place] [address] lab Director: Anibal Marquis MD#### GLYHGB ####[facility] [address] [place], [place] [phone] lab Director: Tai Albarran MD CBC with Auto Differentialon 10-08-2023 Basophils (Bld) [#/Vol] 0.02 10*3/uL [facility] Basophils/100 WBC (Bld) 0 % 0 - 2 % B [facility] Eosinophils (Bld) [#/Vol] 0.01 10*3/uL [facility] Eosinophils/100 WBC (Bld) 0 % 0 - 5 % [facility] Erythrocyte distribution width (RBC) [Ratio] 13.5 % 12.1 - 15.2 % [facility] Hematocrit (Bld) [Volume fraction] 28.0 % Low 41.0 - 53.0 % [facility] Hemoglobin (Bld) [Mass/Vol] 9.0 g/dL Low 13.5 - 17.5 g/dL [facility] Immature granulocytes (Bld) [#/Vol] 0.03 10*3/uL [facility] Immature granulocytes/100 WBC (Bld) 0 % 0 - 5 % [facility] Interpretation and review of laboratory results Abnormal [facility] Lymphocytes/100 WBC (Bld) 8 % Low 13 - 44 % [facility] Lymphocytes/100 WBC (Bld) 0.73 % Low [facility] MCH (RBC) [Entitic mass] 28.8 pg 26. 0 - 34.0 pg [facility] MCHC (RBC) [Mass/Vol] 32.1 g/dL 31.0 - 37.0 g/dL [facility] MCV (RBC) [Entitic vol] 89.7 fL 80.0 - 100.0 fL [facility] Monocytes/100 WBC (Bld) 6 % 5 - 9 % B [facility] Monocytes/100 WBC (Bld) 0.51 % B [facility] Neutrophils/100 WBC (Bld) 86 % High 39 - 75 % [facility] Platelet mean volume (Bld) [Entitic vol] 9.3 fL 6.0 - 12.0 fL [facility] Platelets (Bld) [#/Vol] 225 10*3/uL [facility] RBC (Bld) [#/Vol] 3.12 10*6/uL Low 4.50 - 5.9 0 m/uL [facility] Segmented neutrophils/100 WBC (Bld) 7.87 % High [facility] WBC other (Bld) [#/Vol] 9.2 B ON [facility] CBC with Diffon 10-08-2023 Abs. Basophil 0.02 k/uL Normal 0.00-0.20 [facility] Comment on above: Performed By: #### C DP, CP, LACTIC ####[facility] Flu[address] [place], [place] [address])[phone] Director: Anibal Marquis MD Abs.Imm.Granulocyte 0.03 k/uL Normal 0.00-0.30 [facility] Comment on above: Performed By: #### C DP, CP, LACTIC ####[facility] Nvb5778 [place] [address] Lab Director: Anibal Marquis MD Abs.Neutrophil (Seg) 7.87 k/uL High 2.1-6.5 [facility] Comment on above: Performed By: #### C DP, CP, LACTIC ####[facility] Riv[address] [place], [place] [address])[phone] Director: Anibal Marquis MD Basophils/100 WBC (Bld) 0 % Normal 0-2 [facility] Comment on above: Performed By: #### C DP, CP, LACTIC ####[facility] Lid1315 [place] [address] Lab Director: Anibal Marquis MD Eosinophils (Bld) [#/Vol] 0.01 10*3/uL Normal 0.00-0.40 [facility] Comment on above: Performed By: #### C DP, CP, LACTIC ####[facility] [address] [place] [id number] Lab Director: Anibal Marquis MD Eosinophils/100 WBC (Bld) 0 % Normal 0-5 [facility] Comment on above: Performed By: #### C DP, CP, LACTIC ####[facility] Ozr4623 [place] [address] Lab Director: Anibal Marquis MD Erythrocyte distribution width (RBC) [Ratio] 13.5 % Normal 12.1-15.2 [facility] Comment on above: Performed By: #### C DP, CP, LACTIC ####[facility] Ygb7767 [place] [address] Lab Director: Anibal Marquis MD Hematocrit (Bld) [Volume fraction] 28.0 % Low 41.0-53.0 [facility] Comment on above: Performed By: #### C DP, CP, LACTIC ####[facility] Cqd[address] [place] [phone] Lab Director: Anibal Marquis MD Hemoglobin (Bld) [Mass/Vol] 9.0 g/dL Low 13.5-17.5 [facility] Comment on above: Performed By: #### C DP, CP, LACTIC ####[facility] Fnf[address] [place] [phone] Lab Director: Anibal Marquis MD Immature granulocytes/100 WBC (Bld) 0 % Normal 0-5 [facility] Comment on above: Performed By: #### C DP, CP, LACTIC ####[facility] Mug1003 [facility], [facility] Lab Director: Anibal Marquis MD Lymphocytes (Bld) [#/Vol] 0.73 10*3/uL Low 1.00-4.80 [facility] Comment on above: Performed By: #### C DP, CP, LACTIC ####[facility] Jkc1330 [place] [address] Lab Director: Anibal Marquis MD Lymphocytes/100 WBC (Bld) 8 % Low 13-44 [facility] Comment on above: Performed By: #### C DP, CP, LACTIC ####[facility] Gwz4266 [place] [address] Lab Director: Anibal Marquis MD MCH (RBC) [Entitic mass] 28.8 pg Normal 26.0-34.0 [facility] Comment on above: Performed By: #### C DP, CP, LACTIC ####[facility] Pml9411 [place], [place] [address])[phone] Director: Anibal Marquis MD MCHC (RBC) [Mass/Vol] 32.1 g/dL Normal 31.0-37.0 [facility] Comment on above: Performed By: #### C DP, CP, LACTIC ####[facility] Vdx4002 [place], [place] [address])[phone] Director: Anibal Marquis MD MCV (RBC) [Entitic vol] 89.7 fL Normal 80.0-100.0 [facility] Comment on above: Performed By: #### C DP, CP, LACTIC ####[facility] Nkz[address] [place] [address] Lab Director: Anibal Marquis MD Monocytes (Bld) [#/Vol] 0.51 10*3/uL Normal 0.00-1.00 [facility] Comment on above: Performed By: #### C DP, CP, LACTIC ####[facility] [address] [place] [address] Lab Director: Anibal Marquis MD Monocytes/100 WBC (Bld) 6 % Normal 5-9 [facility] Comment on above: Performed By: #### C DP, CP, LACTIC ####[facility] Gyr8175 [facility] [place] [address] Lab Director: Anibal Marquis MD Neutrophil (Seg) 86 % High 39-75 [facility] Comment on above: Performed By: #### C DP, CP, LACTIC ####[facility] Aip6161 [facility] [phone] Director: Anibal Marquis MD Platelet mean volume (Bld) [Entitic vol] 9.3 fL Normal 6.0-12.0 [facility] Comment on above: Performed By: #### C DP, CP, LACTIC ####[facility] Ths6505 [facility] [place] [address] Lab Director: Anibal Marquis MD Platelets (Bld) [#/Vol] 225 10*3/uL Normal 140-450 [facility] Comment on above: Performed By: #### C DP, CP, LACTIC ####[facility] Lfn6098 [facility] [place] [address] Lab Director: Anibal Marquis MD RBC (Bld) [#/Vol] 3.12 10*6/uL Low 4.50-5.90 [facility] Comment on above: Performed By: #### C DP, CP, LACTIC ####[facility] Tyh9047 [facility] [place] [address] Lab Director: Anibal Marquis MD WBC (Bld) [#/Vol] 9.2 10*3/uL Normal 3.5-11.0 [facility] Comment on above: Performed By: #### C DP, CP, LACTIC ####[facility] [address] [facility] [place] [address] lab Director: nAibal Marquis MD [facility] 10-08-2023 Albumin [Mass/Vol] 3.4 g/dL Low 3.5 - 5.2 g/dL [facility] ALP [Catalytic activity/Vol] 119 U/L 40 - 129 U/L [facility] ALT [Catalytic activity/Vol] 8 U/L 5 - 41 U/L [facility] Anion gap [Moles/Vol] 15 mmol/L 9 - 17 mmol/L [facility] AST [Catalytic activity/Vol] 15 U/L NINF - 40 U/L [facility] Bilirubin [Mass/Vol] 1.1 mg/dL 0.3 - 1 .2 mg/dL [facility] Calcium [Mass/Vol] 8.8 mg/dL 8.6 - 10. 4 mg/dL [facility] Chloride [Moles/Vol] 98 mmol/L 98 - 10 7 mmol/L [facility] CO2 [Moles/Vol] 20 mmol/L 20 - 31 mmol/L [facility] Creatinine [Mass/Vol] 1.7 mg/dL High 0.7 - 1.2 mg/dL [facility] Est, Glom Filt Rate 45 Low - PINF [facility] Comment on above: These results are [...] that affects renal tubular secretion. Glucose [Mass/Vol] 250 mg/dL High 70 - 99 mg/dL [facility] Interpretation and review of laboratory results Abnormal [facility] Potassium [Moles/Vol] 3.9 mmol/L 3.7 - 5.3 mmol/L [facility] Protein [Mass/Vol] 7.3 g/dL 6.4 - 8.3 g/dL [facility] Sodium [Moles/Vol] 133 mmol/L Low 135 - 144 mmol/L [facility] Urea nitrogen [Mass/Vol] 23 mg/dL 8 - 23 mg/dL [facility] Urea nitrogen/Creatinine [Mass ratio] 14 mg/mg 9 - 20 [facility] Comp Metabolic Profon 2023 Albumin [Mass/Vol] 3.4 g/dL Low 3.5-5.2 [facility] Comment on above: Performed By: #### U AX #### [facility] Lab [address] [place], [place] [id number] Lead Handler: Anibal Marquis MD Alkaline Phos 119 U/L Normal 40-129 [facility] Comment on above: Performed By: #### U AX #### [facility] Lab [address] [place] [phone] Lead Handler: Anibal Marquis MD ALT [Catalytic activity/Vol] 8 U/L Normal 5-41 [facility] Comment on above: Performed By: #### U AX #### [facility] [address] [place], [place] [phone] Lead Handler: Anibal Marquis MD Anion gap [Moles/Vol] 15 mmol/L Normal 9-17 [facility] Comment on above: Performed By: #### U AX #### [facility] [address] [place] [phone] Lead Handler: Anibal Marquis MD AST [Catalytic activity/Vol] 15 U/L Normal <40 [facility] Comment on above: Performed By: #### U AX #### [facility] [address] [place] [address] Lead Handler: Anibal Marquis MD Bilirubin [Mass/Vol] 1.1 mg/dL Normal 0.3-1.2 [facility] Comment on above: Performed By: #### U AX #### [facility] [address] [place], [place] [phone] Lead Handler: Anibal Marquis MD BUN/CRE Ratio 14 Normal 9-20 [facility] Comment on above: Performed By: #### U AX #### [facility] [address] [place], [place] [phone] Lead Handler: Anibal Marquis MD Calcium [Mass/Vol] 8.8 mg/dL Normal 8.6-10.4 [facility] Comment on above: Performed By: #### U AX #### [facility] [address] [place], [place] [phone] Lead Handler: Anibal Marquis MD Chloride [Moles/Vol] 98 mmol/L Normal 98-107 [facility] Comment on above: Performed By: #### U AX #### [facility] [address] [place], [place] [phone] Lead Handler: Anibal Marquis MD CO2 [Moles/Vol] 20 mmol/L Normal 20-31 [facility] Comment on above: Performed By: #### U AX #### [facility] [address] [place], [place] [phone] Lead Handler: Anibal Maruqis MD Creatinine [Mass/Vol] 1.7 mg/dL High 0.7-1.2 [facility] Comment on above: Performed By: #### U AX #### [facility] [address] [place], [place] [phone] Lead Handler: Anibal Marquis MD GFR/1.73 sq M.predicted among non-blacks MDRD (S/P/Bld) [Vol rate/Area] 45 mL/min/{1.73_m2} Low >60 [facility] Comment on above: Result Comment: These results [...] affects renal tubular secretion. Performed By: #### U AX #### [facility] [address] [place], [place] [phone] Lead Handler: Anibal Marquis MD Glucose [Mass/Vol] 250 mg/dL High 70-99 [facility] Comment on above: Performed By: #### U AX #### [facility] [address] [place], [place] [phone] Lead Handler: Anibal Marquis MD Potassium [Moles/Vol] 3.9 mmol/L Normal 3.7-5.3 [facility] Comment on above: Performed By: #### U AX #### [facility] [address] [place], [place] [phone] Lead Handler: Anibal Marquis MD Protein [Mass/Vol] 7.3 g/dL Normal 6.4-8.3 [facility] Comment on above: Performed By: #### U AX #### [facility] [address] [place], [place] [phone] Lead Handler: Anibal Marquis MD Sodium [Moles/Vol] 133 mmol/L Low 135-144 [facility] Comment on above: Performed By: #### U AX #### [facility] [address] [place], [place] [phone] Lead Handler: Anibal Marquis MD Urea nitrogen [Mass/Vol] 23 mg/dL Normal 8-23 [facility] Comment on above: Performed By: #### U AX #### [facility] [address] [place], [place] [phone] Lead Handler: Anibal Marquis MD Lactic Acidon 10-08-2023 Lactate (BldV) [Moles/Vol] 2.0 mmol/L 0.5 - 2.2 mmol/L [facility] Lactate [Moles/Vol] 2.0 mmol/L Normal 0.5-2.2 [facility] Comment on above: Performed By: #### U AX #### [facility] [address] [place] [address] Lead Handler: Anibal Marquis MD Portable XR Chest AP single viewon 10-08-2023 FINDINGS/IMPRESSION: 1. Bibasilar airspace opacities suspicious for pneumonia, new. 2. Heart size normal. 3. No effusion. [facility] RIS CONSOLIDATED EXAM: XR CHEST PORTABLE HISTORY: Fever COMPARISON: 04/18/2021 [facility] CONSOLIDATED Primo Neely Jr., MD - 10/08/2023 EXAM: XR CHEST PORTABLE HISTORY: Fever COMPARISON: 04/18/2021 IMPRESSION: FINDINGS/IMPRESSION: 1. Bibasilar airspace opacities suspicious for pneumonia, new. 2. Heart size normal. 3. No effusion. [facility] Radiology Study observation (narrative) [facility] Portable XR Chest AP single viewOrdered By: Primo Neely on 10-08-2023 [facility] Work Phone: XR CHEST PORTABLEon 10-08-19 XR CHEST PORTABLE EXAM: XR CHEST PORTABLE HISTORY: Fever COMPARISON: 04/18/2021 IMPRESSION: FINDINGS/IMPRESSION: 1. Bibasilar airspace opacities suspicious for pneumonia, new. 2. Heart size normal. 3. No effusion. Interpreted by: Primo Neely Jr., MD Signed by: Primo Neely Jr., MD 10/08/23 Final result Normal [facility] XR FOOT LEFT (MIN 3 VIEWS)on 10-08-2023 XR FOOT LEFT (MIN 3 VIEWS) EXAM: XR FOOT LEFT (MIN 3 VIEWS) HISTORY: Fever, ulceration to foot, evaluate for osteomyelitis COMPARISON: [place], 07/23/2023. IMPRESSION: FINDINGS/IMPRESSION: 1. Rocker-bottom foot with marked Charcot changes throughout the midfoot. 2. Plantar ulcer over the midfoot without osteomyelitis. 3. Diffuse soft tissue swelling. 4. Prior amputation great toe. Interpreted by: Primo Neely Jr., MD Signed by: Primo Neely Jr., MD 10/08/23 Final result Normal [facility] XR Foot - left 3 Viewson FINDINGS/IMPRESSION: 1. Rocker-bottom foot with marked Charcot changes throughout the midfoot. 2. Plantar ulcer over the midfoot without osteomyelitis. 3. Diffuse soft tissue swelling. 4. Prior amputation great toe. [facility] RIS CONSOLIDATED EXAM: XR FOOT LEFT (MIN 3 VIEWS) HISTORY: Fever, ulceration to foot, evaluate for osteomyelitis COMPARISON: [place], 07/23/2023. [facility] CONSOLID[facility] Primo Neely Jr., MD - 10/08/2023 EXAM: XR FOOT LEFT (MIN 3 VIEWS) HISTORY: Fever, ulceration to foot, evaluate for osteomyelitis COMPARISON: [place], 07/23/2023. IMPRESSION: FINDINGS/IMPRESSION: 1. Rocker-bottom foot with marked Charcot changes throughout the midfoot. 2. Plantar ulcer over the midfoot without osteomyelitis. 3. Diffuse soft tissue swelling. 4. Prior amputation great toe. [facility] Radiology Study observation (narrative) [facility] Operative Reporton Operative Report Operative Report SURGERY DATE: 09/30/2023 PREOPERATIVE DIAGNOSIS: Bilateral lower extremity critical limb ischemia with nonhealing wounds POSTOPERATIVE DIAGNOSIS: Bilateral lower extremity critical limb ischemia with nonhealing wounds OPERATION: 1. Ultrasound-guided access with closure of the right common femoral artery 2. Placement of catheter in the abdominal aorta, aortogram, pelvic angiogram 3. Selective left lower extremity angiogram and placement of catheter in the left common femoral artery and superficial femoral artery 4. Nonselective right lower extremity angiogram ANESTHESIA: Conscious sedation done under my supervision total of 12 minutes INDICATIONS: This is a 63-year-old gentleman with nonhealing wounds in both lower extremities. He has diabetes and we did noninvasive testing last year. It was normal, so because there is nonhealing we discussed the false negative. We took him for an angiogram and intervention. PROCEDURE: The patient was taken back to the Catheterization Laboratory and placed in the supine position. Appropriate cardiopulmonary monitors were set. Conscious sedation was induced. Under ultrasound guidance the right common femoral artery was accessed using Seldinger maneuver. The catheter was placed in the abdominal aorta. Aortogram and pelvic angiogram were done. Then I went up and over and did a selective left lower extremity angiogram. Then through the sheath from the right side we did a nonselective right lower extremity angiogram. The left was selective. The right was nonselective. The patient had no evidence of occlusive disease all the way down to the ankle. He has evidence of small-vessel disease in the foot. Access site was closed using Mynx. The patient tolerated the procedure very well. No complications. Jose Rafael Deng M.D. ca Dictated: 09/30/2023 [id number] Transcribed: 09/30/2023 [facility] Comment on above: Result Comment: Elec tronically Signed By: Ish MCGILL, Jose Rafael Parks\.br\Date and Time Signed: 10/07/23 10:31 EDT Inpatient Clinical Summaryon 09-30-2023 Inpatient Clinical Summary Inpatient Clinical Summary [place] [id number] Clinical Summary Person Information: Name: JILLIAN LITTLE Age: 63 Years : 1960 Sex: Male PCP: SARA LESTER DO Marital Status: Race: White Ethnicity: Non- or Language: Sudanese Visit Id: Visit Reason: I70.262 Speciality: Acuity: Enc Type: Ambulatory/Same Day Surgery Med Service: Surgery Arrival: 09/30/2023 10:22:46 Discharge: Dispo Type: Address: [address] [place] [address] [id number] Provider Notes: Diagnosis: Problems Active Diabetic foot ulcer HLD (hyperlipidemia) Anemia diabetes HTN (hypertension) Hyperlipidemia Chronic GERD Smoking Status: Former Smoker Functional Status: Sensory Deficits: History of Falls: Within last three months Mobility Assistance Prior to Admission: Independent ADLs: Independent Current Level of Assistance for Self-Care/Mobility: Cognitive Status: Allergies No Known Allergies Measurements: Height: 175 cm Weight: 85 kg Blood Pressure: Not Valued / Not Valued BMI: 27.76 kg/m2 Procedures Fluoroscopic angiogram of artery of extremity with contrast (09/30/2023) Immunizations No Immunizations Documented This Visit Final Med List: acetaminophen-hydroc odone (Tyler 325 mg-5 mg oral tablet) 1 Tablets By Mouth every 6 hours as needed for pain. Refills: 0. amitriptyline (amitriptyline 25 mg Tab) 1 Tablets By Mouth once a day (at bedtime). TAKE 1 TABLET BY MOUTH NIGHTLY.. aspirin (aspirin 81 mg Chew Tab) 1 Tablets By Mouth every day. atorvastatin (atorvastatin 40 mg Tab) 1 Tablets [...] per day is 56 units. Refills: 0. metoprolol (metoprolol 25 mg ER [...] bedtime. TAKE 3 TABLETS BY MOUTH NIGHTLY. sitagliptin (Januvia 100 mg Tab) 1 Tablets By Mouth every day. Care Team Members: Attending Physician: Jose Rafael Deng MD Consulting Physician: Referring Physician: Jose Rafael Deng MD Follow up: With: Address: When: Jose Rafael Deng [address] [place] [address] [facility] (1) 10/28/2023 10:45 AM Comments: Keep scheduled appointment Patient Education Information: CV - Cardiovascular Discharge Instructions (Custom) [facility] Inpatient Patient Summaryon 09-30-2023 Inpatient Patient Summary Inpatient Patient Summary [place] [id number] Patient Discharge Instructions PERSON INFORMATION Name: JILLIAN LITTLE Date of : 1960 Current Date: 09/30/2023 15:13:31 PHYSICIANS Admitting Physician: Jose Rafael Deng MD Primary Care Physician: SARA LESTER DO PCP Comment: Discharge Diagnosis: Condition at Discharge: Stable JILLIAN LITTLE has been given the following list of follow-up instructions, prescriptions, and patient education materials: PATIENT FOLLOW-UP INFORMATION Diet: Discharge Activity: Discharge Restrictions: No driving for 24 hrs, Do not operate machinery or tools, Do not make important decisions for 24 hours, Do not drink alcoholic beverages for 24 hours Wound Care Instructions: Remove dressing as instructed Remove Your Dressing In Days Call Your Doctor For: IF UNABLE TO CONTACT YOUR PHYSICIAN AND YOU FEEL IT IS AN EMERGENCY, GO TO THE NEAREST EMERGENCY ROOM OR CALL 911 Home Treatment: Devices/Equipment: Special Services: Additional Instructions: Primary Care Physician to provide the following pending test results: None Follow up: With: Address: When: [place] [address] [facility] (1) 10/28/2023 10:45 AM Comments: Keep scheduled appointment In the event that this physician does not participate in your insurance network, please consult with your insurance company to find a nearby participating provider. Comment: KATHARINA Posadas WESLEY E, have received the attached patient education materials/instructio ns and have verbalized understanding: Patient Signature Date Clinican/Nurse Signature Date HERE ARE THE MEDICATION CHANGES THAT OCCURRED DURING YOUR HOSPITAL STAY Medications to Continue with No Changes Other Medications acetaminophen-hydroc odone (Tyler 325 mg-5 mg oral tablet) 1 Tablets By Mouth every 6 hours as needed for pain. Refills: 0. Last Dose: Next Dose: amitriptyline (amitriptyline 25 mg Tab) 1 Tablets By Mouth once a day (at bedtime). TAKE 1 TABLET BY MOUTH NIGHTLY.. Last Dose: Next Dose: aspirin (aspirin 81 mg Chew Tab) 1 Tablets By Mouth every day. Last Dose: Next Dose: atorvastatin (atorvastatin 40 [...] per day is 56 units. Refills: 0. Last Dose: Next Dose: metoprolol (metoprolol 25 mg ER Tab) 0.5 Tablets (more content not included)... Normal [facility] Immunofixation, Urineon 09-08 Interpretation Immunofixation (U) [Interp] Comment Invalid Interpretation Code [facility] Comment on above: Result Comment: No m onoclonality detected. Performed at: [address] [id number] PhD Marlo Bowser Performed By: #### 3 [id number] #### [facility] Laboratory [address] [place] [address] C3on 09-19-2023 Complement C3 [Mass/Vol] 181 mg/dL High 82-167 [facility] Comment on above: Result Comment: Perf ormed at: [address] [id number] PhD Marlo Bowser Performed By: #### 2 [id number] #### [facility] [address] [place] [address] C4on 09-19-2023 Complement C4 [Mass/Vol] 50 mg/dL High 12-38 [facility] Comment on above: Result Comment: Perf ormed at: [address] [id number] PhD Marlo Bowser Performed By: #### 2 [id number] #### [facility] [address] [place] [address] Free K+L Lt Chains,Qn,Son Immunoglobulin light chains.kappa.free (S) [Mass/Vol] 31.7 mg/L High 3.3-19.4 [facility] Comment on above: Performed By: #### 2 [id number] #### [facility] [address] [place] [address] Immunoglobulin light chains.kappa.free/Immuno globulin light chains.lambda.free (S) [Mass ratio] 1.17 Invalid Interpretation Code 0.26-1.65 [facility] Comment on above: Result Comment: Perf ormed at: [facility] [id number] PhD Marlo Bowser Performed By: #### 2 [id number] #### [facility] [address] [place] [address] Immunoglobulin light chains.lambda.free [Mass/Vol] 27.2 mg/L High 5.7-26.3 [facility] Comment on above: Performed By: #### 2 [id number] #### [facility] [address] [place] [address] Immunofixation Serumon 09-18 IgA [Mass/Vol] 647 mg/dL High 61-437 [facility] Comment on above: Performed By: #### 1 [id number] #### [facility] [address] [place] [address] IgG [Mass/Vol] 1098 mg/dL Invalid Interpretation Code 603-1613 [facility] Comment on above: Performed By: #### 1 [id number] #### [facility] [address] [place] [address] IgM [Mass/Vol] 112 mg/dL Invalid Interpretation Code 20172 [facility] Comment on above: Result Comment: Perf ormed at: [facility] [address] [place], [place] [id number] PhD Marlo Bowser Performed By: #### 1 [id number] #### [facility] [address] [place] [address] Protein Fractions [Interp] Comment Invalid Interpretation Code [facility] Comment on above: Result Comment: No m onoclonality detected. Performed By: #### 1 [id number] #### [facility] [address] [place] [address] PTH Intacton 09-19-2023 Parathyrin.intact [Mass/Vol] 24 pg/mL Invalid Interpretation Code 1565 [facility] Comment on above: Result Comment: Perf ormed at: [facility] [address] [id number] PhD Marlo Bowser Performed By: #### 1 [id number] #### [facility] [address] [place] [address] CHEMISTRYOrdered By: SYSTEM SYSTEM on 09-18-2023 25-hydroxyvitamin D3 [Mass/Vol] 36.2 ng/mL Normal 30.0 - 100.0 ng/mL Remisol Chem Albumin [Mass/Vol] 4.3 g/dL Normal 3.3 - 5.0 gm/dL Remisol Chem Anion gap [Moles/Vol] 14 mmol/L Normal 6 - 16 mEq/L Remisol Chem Calcium [Mass/Vol] 9.7 mg/dL Normal 8.9 - 11. 1 mg/dL [facility] Chem Chloride [Moles/Vol] 102 mmol/L Normal 101 - 1 11 mmol/L [facility] Chem CO2 [Moles/Vol] 26 mmol/L Normal 21 - 31 mmol/L [facility] Chem Creatinine [Mass/Vol] 1.4 mg/dL High 0.5 - 1.3 mg/dL Rem[facility] Chem eGFR 57 mL/min/1.73 m2 Low >=59mL/min / 1.73 m2 [facility] Chem Glucose [Mass/Vol] 321 mg/dL High 55 - 199 mg/dL Remisol Chem Phosphate [Mass/Vol] 4.0 mg/dL Normal 1.9 - 4 .6 mg/dL [facility] Chem Potassium [Moles/Vol] 5.1 mmol/L Normal 3.5 - 5.3 mmol/L [facility] Chem Sodium [Moles/Vol] 137 mmol/L Normal 135 - 145 mmol/L [facility] Chem Urea nitrogen [Mass/Vol] 17 mg/dL Normal 5 - 21 mg/dL [facility] Chem Urea nitrogen/Creatinine [Mass ratio] 12 mg/mg Normal 10 - 20 Remisol Chem Protein/Creatinine (U) [Ratio] 12.10 mg/gm Cr Normal 0.00 - 200.00 mg/gm Cr Remisol Chem Ur Total Protein 5.7 mg/dL Invalid Interpretation Code Remisol Chem HEMATOLOGYOrdered By: SYSTEM SYSTEM on 09-18-2023 Hematocrit (Bld) [Volume fraction] 35.3 % Low 37.7 - 49.0 % Remisol Heme Hemoglobin (Bld) [Mass/Vol] 12.0 g/dL Low 13.5 - 17.5 gm/dL Remisol Heme No Panel InformationOrdered By: SYSTEM SYSTEM on 09-18-2023 U Creatinine 47.2 mg/dL Invalid Interpretation Code Remisol Chem Renal Panelon 09-18-2023 Albumin [Mass/Vol] 4.3 g/dL Normal 3.3-5.0 [facility] Comment on above: Performed By: #### 1 [id number] #### [facility] [address] [place] [address] Anion gap [Moles/Vol] 14 mmol/L Normal 6-16 [facility] Comment on above: Performed By: #### 1 [id number] #### [facility] [address] [place] [address] Calcium [Mass/Vol] 9.7 mg/dL Normal 8.9-11.1 [facility] Comment on above: Performed By: #### 1 [id number] #### [facility] [address] [place] [address] Chloride [Moles/Vol] 102 mmol/L Normal 101-111 [facility] Comment on above: Performed By: #### 1 [id number] #### [facility] [address] [place] [address] CO2 [Moles/Vol] 26 mmol/L Normal 21-31 [facility] Comment on above: Performed By: #### 1 [id number] #### [facility] [address] [place] [address] Creatinine [Mass/Vol] 1.4 mg/dL High 0.5-1.3 [facility] Comment on above: Performed By: #### 1 [id number] #### [facility] [address] [place] [address] Glucose [Mass/Vol] 321 mg/dL High 55-199 [facility] Comment on above: Performed By: #### 1 [id number] #### [facility] [address] [place] [address] Phosphate [Mass/Vol] 4.0 mg/dL Normal 1.9-4.6 [facility] Comment on above: Performed By: #### 1 [id number] #### [facility] [address] [place] [address] Potassium [Moles/Vol] 5.1 mmol/L Normal 3.5-5.3 [facility] Comment on above: Performed By: #### 1 [id number] #### [facility] [address] [place] [address] Sodium [Moles/Vol] 137 mmol/L Normal 135-145 [facility] Comment on above: Performed By: #### 1 [id number] #### [facility] [address] [place] [address] Urea nitrogen [Mass/Vol] 17 mg/dL Normal 5-21 [facility] Comment on above: Performed By: #### 1 [id number] #### [facility] [address] [place] [address] Urea nitrogen/Creatinine [Mass ratio] 12 No Units Normal 10-20 [facility] Comment on above: Performed By: #### 1 [id number] #### [facility] [address] [place] [address] U Protein/Creat Ratioon 07- 0-2024 Protein/Creatinine (U) [Ratio] 12.10 mg/gm Cr Normal .00-200.00 [facility] Comment on above: Performed By: #### 1 [id number] #### [facility] [address] [place] [address] U Creatinine 47.2 mg/dL Invalid Interpretation Code [facility] Comment on above: Performed By: #### 1 [id number] #### [facility] [address] [place] [address] Performed By: #### 2 [id number] #### [facility] [address] [place] [address] Ur Total Protein 5.7 mg/dL Invalid Interpretation Code [facility] Comment on above: Performed By: #### 1 [id number] #### [facility] [address] [place] [address] URINALYSISOrdered By: [employer] SYSTEM on 09-18-2023 Bilirubin Ql (U) Negative Normal Negativemg/ dL FT UA Auto SS Clarity (U) Clear (09/18/23 11:08 AM) Normal Clear FT UA Auto SS Color (U) Colorless 1 *ABN* (09/18/23 11:08 AM) Invalid Interpretation Code Yellow [facility] UA Auto SS Comment on above: Interpretive Data: M icroscopic readings are only performed on those samples that meet specific criteria set forth by [facility]. Glucose Ql (U) 4+ mg/dL Invalid Interpretation Code Negativemg/ dL FT UA Auto SS Hemoglobin Auto test strip (U) [Mass/Vol] Negative Normal Negativemg/ dL [facility] UA Auto SS Ketones Auto test strip Ql (U) Negative Normal Negativemg/ dL [facility] UA Auto SS Leukocyte esterase Auto test strip Ql (U) Negative Normal NegativeLeu /uL [facility] UA Auto SS Nitrite Auto test strip Ql (U) Negative Normal Negativemg/ dL FT UA Auto SS pH (U) 5.5 *NA* (09/18/23 11:08 AM) Invalid Interpretation Code 5.0 - 9.0 [facility] UA Auto SS Protein Ql (U) Negative Normal Negativemg/ dL [facility] UA Auto SS Specific gravity (U) [Rel density] 1.030 *NA* (09/18/23 11:08 AM) Invalid Interpretation Code 1.005 - 1.030 [facility] UA Auto SS Urobilinogen (U) [Mass/Vol] Negative Normal Negativemg/ dL FT UA Auto SS URINALYSISOrdered By: Alpesh Santa on 09-18-2023 UA Spec Desc Clean Catch (09/18/23 11:08 AM) Normal FT UA Auto SS Vitamin D 25 Hydroxyon 09-17 25-hydroxyvitamin D3 [Mass/Vol] 36.2 ng/mL Normal 30.0-100.0 [facility] Comment on above: Performed By: #### 5 [id number] #### [facility] [address] [place] [address] eGFRon 09-18-2023 eGFR 57 mL/min/1.73 m2 Low >=[address] [facility] Comment on above: Order Comment: Order added by Discern Expert. Performed By: #### 1 [id number] #### [facility] [address] [place] [address] Coding Summary.on 08-28-2023 Coding Summary. SIKUWczn37LBa5jIo+PG hlYWQ+SK4CLSMpT28duF KgrV4pG3NUEFyYAsvwVK WTUWaIDuHxwhDrXN6czJ NjZXJu IC8+VX4kEDFyVskklAOw a1Q5hRS2F12mfq6yQFpy fKU9URUgEeMfbklod4hd cOk2YFgdEqkgRcBx INCemZ97LUL0dC69Ll34 hTYivEZgs8zxjSa1XhBu TXNmBQW9kIyyBWaja1Dt HNLiT87gvOWhj0T5 IGNvbGxhcHNlOyBlbXB0 pI3eVFlaxqcgn8ywmpnj Kyi3le81lQWhn4X7iSF9 O1HxrkC5WJMxdNMq KmzjyTHZsD5jkdchb5pq qehnAtPuYOPkREq5ICl2 CBOrsYanAvHnPZ90VXQ1 WMIcaiFjI8QdXONy kBnyCyO7y0H1Li7TX7KX UejzR4NQDNYDBYcltDX+ GF61qw74V9LrWdrlCph1 QZKlPBR1hMC0zY9p DWYnHWzsw7T1uWF9V9Iw pcFdqe6yj1qoRDSxKIoy A68vjQHjy2B3NGUudRN7 CUMmuAsqDhMaoP09 Oyc+TYAarGhru0VkZsjt p4tyn6nhsMy1QrizCRNu zaNjxRxnPYZ6r2XxOs1t JQUmlGJ2aBI3fA9u PiEuDgX0MKtpU878NeLm uLYiArehN11wO8WolXP+ ZXFaAwk9CLTgxPdkLM2y X5RkRYIiuvgbxWZi sTcrWA7wNYOnbonaDIJy iH2qYVPxN2a4BdVvEfA6 EUrvL8NlKQPrmfxmIn55 dR9yYiVmSpB4PXbw Z3VzdyS5TFDcwZVdGHqf RZX3L27yk2Z3ZYTqMQBu IXM5wXU0fW4svMewhtnx bGVmdDsgdmVydGlj JVgrDNteB457UHPbtPll PkNvZGluZyBEYXRlOiAg MDYvMTkvMjAyNDwvdGQ+ QQEjTOO2bUsjTXVi hNDbPMsdYx5ybZfkcCiu KW2rDCXykhthLWHbbO6c DGByrHTuaQhyZH8nJFPi znmdx670NnIwSND2 NLJavKHpC5VjnK6rVcOh PRXgPUGfR5IoxCSgRHjy S809PXxtKeE7ZEBzfbJy H3ZlNKLdxFyuSuM5 t5V6Dw9Cg6EgsnxfL7Rx aXHeRgYaNxltDCs5N0Fk PjwvdHI+PP58VETwBB58 HGb9VIE3xTmdEHul IFUsW8WikA5dYiCeXTTs ZGRkOyc+PHRhYmxlIHdp ZHRoPScxMDAlJyBzdHls YT4fEz1fUKCkSQNe yYwpjVDnFbDtf6enKJGu NCdoCW0bnRslT6JxpXA9 UHFmk9u4Lq11P81eV4Ha dXA+SCJtgXV5fKP8 kS7uBaSyJcQ4PCdgR677 AaSwcHXvNvszi5brz4is eRq1IkK9RYWdqjNswAor MJB3e2RlGv34V44h IHdpZHRoPSIxNSUiIHZh fSngds4mhO2oMe2+PGNv yAO6kMX6mH7lScUfGvM0 ZYsgG459FdSpsHLa Qyrys5mfv6ajuDq1DfHx NIEtdpLlrLxtGFF4q9Xt Nf07P6SaeAjuf2IpJqb3 do77yBBis0B9sZW7 F2VlNHCddvpmzWCfaCev TM7xITPdmemyHQXjwN3r QBHaI5f0OtJtRdT0KGaf P3MiloA2XGGrePQf BFYquESMsN5eanqlb4pm onnzPoYpPPCjELc6MVu9 LBKwpIvkCgGzNIU1WqX2 PAS7dBOuzV2qcWmi jmtycL8nFjc+LJD5wZOf hCFGXM3bBrlkuEV+PHRk LHP6oWrfQTowSNTafV7b CJDeY7n1LtBtVyB7 WDpdW2KcjcE1VUMljAVm VXGapUEHsC4soryhc1ks cvyzGmGhXGZgQUr2UWx4 LWFsaWduOiBsZWZ0 DnN1UEN1uPQizZ2bqWms bozxmA2vJvg+QmlydGgg CAB2MRl9B2NwKux4JKCu cZdoUA2tkJQoVQfm Tz0jwXefyEktAZ9pENDu ghgpl698LbPoc2hzIFCx tURnBAefLSY6X32es2P3 KJPcMGTkJAU0sGR4 rS4akTxobuozjCIukUyv lrMqbJwqGCfmPBxqH039 EZJgbPcjOrRuREf0E3Ah Zbd4EDIjmEivRK1h lLNpPRcyQg3ejPphaKlc EE2fZRHuzakkf379UmXy e0xxAOFmuKSeYInzAMC9 C26qr5F1FECzYYDu NJE4zIQ0kX1maZiuopnz bGVmdDsgdmVydGljYWwt GHyqA433YTBbgOylZtXf uOc9C0GgEft0NNYz cYqzBA1zlZXaBAybIl3w yQkwxWwbTU9vQJYbianr a509LoFma3lnQTGzcBRp UOoiQVU1F97lg6I0 TSEfNRXkSHM3nQG8yF0k bGlnbjogbGVmdDsgdmVy jIjjKVilLPyzR838ZGEg cDsnPlBhdGllbnQg DUwdNQf6Y9RxXwevuLT+ HW81UMQpWD92dSRjgRIw q1vloNy2SqIiUZCrQUW0 aMosLQmiw2LfRLRt I39lmLQos2E4FZCoqXpu hOAmNwDjhSE6kG9gFAaq tixeq2lpxnaqJoccb6wj kt01xA61I88oSMzo ZHRoPSIzMCUiIHZhbGln tw9igK5eEs9+PGNvbCB3 mVG4jZ1bSRGuUuB9CZbc U573NfDqbNMdDftb z6phf8xfiKd1DaC3PLEf xkZeaEolRBY1x6QsTr96 L10lXWnvDOMzFYAaQDRq WYUdtHuctc7jcS3u Ii8+JZAyhEE3bHL0mE1t AmNbCsG2CYzgW604FrTi eFMxPjphI15sO3QayBW+ QOKzYjx3EWWcrOus UB8kuYBgYZdoGv7pDBK0 QkAqZlClSYsrZ0OyPBXr gwyexgsorDW5OLDhJLTu dH40Qz9ozCmuRQTm vOQMvJ8uzcpzs6ipllsu VgYbQFWyAWa6SBf3OFIl uAliFvBvECR4UoV3EJL2 tTAmcP7rfDmuwlqo eR4qZ7AnQASodzaqCk35 zW9rKlJtChW2MZxtKcb+ L9hFBlDdZZoTY2fXJSDL TP14WM65rKUfw7U8 oRP7U3OlGVDoxhpcstcb oCW7EZPaJMAhzR81gNPy KHsyYj1mn0S4h244CGAf ONVcoJ03Eg7zgFdb PRBaeGBUiU0bomxpo6mf tbakPfRfHLYaWWw6JGv6 CRBzhFeeClXoESG5GkO3 OGU6qYGmfX4lvSmu azmfoR1rFjd+MTAvMzEv ZIq9ZYmcaKP+PHRkIHN0 yIrdDAveMQGzpN3sPYGd J1m8ApOhBcO2VEei D1SxCOFvfchhTl22pS1b AbDpUkJ5IIswY3KukvK2 VCCgsEOwBUtlLPM9Q80j l2C7HYQsYLFqZDJ9 kBS4dH2wyYfhgwpweOUb dDsgdmVydGljYWwtYWxp M118AKBzvNzhIeVsZBih OISjZW45HL66xMYa h9P8wLK5B0HdGAEchsxc rvgthZW4JYWfEHRhaY33 aGVeRAtwOc1ul3Z1a639 JTNqYYOjdP78Ya0z uZjzKFBfxHARxC0dejkp r6jaocaxQuIpDHIkROl3 CYi0YDPkzVniDpCxZZW1 KwU2OVO7wWJnkC8q zOkgkmogiQ3aYqk+TWFs ZTwvdGQ+IGYnUXB6yLfh RViwTISjnK3kOBReQ7b6 LcJwEiW2RTmpZ9Gq YMIqdhniVa30vT9dUbYq MqB3EJszK5IjmnM5ITPz gXMhHOkhWHO0F98iw1I5 UAPcJRBbBDQ9qQS0 tC3woZdwzadlnRNjpIlc rkJcgEtmOBrxPGytT874 WXRkmApeYa49oCAdyXit drL0B0UkZhjewOV+ II33OFDrLW76tYWciRNy k4szgFv6AnGrHTHkRFR8 aYobTEqvt9RcFDHbO11o eFMjd8M9NAQrsNzg uBTsMlJqwZJ0mP7wUImr idodg6tzchdoNzhts8tu xo14lR64B13iBVngMJOf PSIzMCUiIHZhbGln hj6odC7mRu1+PGNvbCB3 iEZ0nC2gBkWgKuY0MCja M414ZiFwkYFhViuec5jp z0xenQp5OqVwQOIg hvNeiSshSBB6u2YbOo82 Z20vDPmpJRYhMJFqDPBb HGMdtYhzoi3gyF4qKm6+ PI4iq4lrqx66mH87 dHI+CWAqAMJ6tIzbSXqk VYJxjA8qXBphLdL0OTMl RrLqkA88hZRpPAfxZx0m wIalqYltJL9vCTCj sskvb005XpTst7goTLQj mSEtKOiwQQQ0G55wx4O6 XHVnGRTxQZO9kMW0bY1p bGlnbjogbGVmdDsg zpHapPlxQAbbXIksR493 JTKflGbsIgQyoFGjF2vm ylIPLK6tVkqbaGI+PHRk SPQ5oLmmXFomNVFc pO3tAZGgQ3d9LaLmBzD3 XUpdG3KzusO6FDRulLSm GXDyuCSIeR7nvgngk1ul cjogIzAwMDAwMDt0 JCh4JVPfxFgtYdRcEZA2 ZgI9NVH7pBJmbT8tzIzd uxnamA1pPni+RklOOjwv dGQ+FNLpQSP2qOqr CWvzNNCsmL5xBHImU8p6 RpJxOpZ3FFjbK1GtgaL5 JBCbcGPnOTCrrNGAiN2n mpbzm3noqrojLdKw IQCfVOd6ANw3YKQpxQpj OoKbKYW7MvD4UDH9tJWo oW0gaEwqmvmclU6cYxf+ TVJOOjwvdGQ+PHRk PZD7hOyjKEjyLLTehB2x ILByO2q4JvJxHwQ1DVdk N0YdzgX8TMKzpEXsKNMo vIQDeQ4dermlk1pr mkoqZvQhPXLiGBw3BUb7 YJGjhWxhMsAcMOW0LiF5 HVO3mIDyaS1epThfogie rI5rQhb+PVC3WKW0 CM19XR96T8YsBwswcOLm bGU+PHRhYmxlIHdpZHRo TNasBGEcHcNpvBmuJS5a Iw0jSDWnTNOzqYvl dEYjQuLfm7fpN (more content not included)... Normal [facility] US Renalon 08-23-2023 US Renal Exam Date/Time: 08/20/2023 08:18 EDT Reason for Exam: I13.10 Report IMPRESSION: No hydronephrosis. EXAMINATION: US Renal HISTORY: Chronic kidney disease. TECHNIQUE: Sonography of the kidneys was performed. Images were obtained and stored in a permanent archive. Unless otherwise stated, incidental findings identified in this report do not require routine follow-up imaging. COMPARISON: None RESULT: Right Kidney: -Renal length: 9.9 cm cm -Parenchyma: Normal parenchymal echogenicity. Normal parenchymal thickness. -Collecting system: No hydronephrosis. -Calculus: No echogenic, shadowing calculus. -Lesion: None. Left Kidney: -Renal length: 10.2 cm cm -Parenchyma: Normal parenchymal echogenicity. Normal parenchymal thickness. -Collecting system: No hydronephrosis. -Calculus: No echogenic, shadowing calculus. -Lesion: None. Bladder: Not evaluated. Ordering Provider: Elder Denson FINAL REPORT Dictated: 08/23/2023 12:12 pm Wellington Grider MD Signed (Electronic Signature): 08/23/2023 12:12 pm Signed by: Wellington Grider MD Transcribed by: ROSY Technologist: ARTEMIO Normal [facility] Consent for Treatmenton 08-09 Consent for Treatment [id number] #1.00TIFF [facility] Physician Orderon 07-31-2023 Physician Order [id number] #1.00TIFF [facility] Cult, Bloodon 07-09-2023 Cult, Blood Specimen Description .BLOOD Special Requests 20ML LAC Culture NO GROWTH 6 DAYS Report Status FINAL 07/09/2023 [facility] Comment on above: Performed By: #### B CUL2 ####[facility] [id number] [place] [address] lab Director: Anibal Marquis MD Cult,Bloodon 07-09-2023 Cult,Blood Specimen Description .BLOOD Special Requests 10ML RFA Culture NO GROWTH 6 DAYS Report Status FINAL 07/09/2023 [facility] Comment on above: Performed By: #### B C ####[facility] [id number] [place] [address] lab Director: Anibal Marquis MD Cult,Woundon 07-06-2023 Cult,Wound Specimen Description .FOOT Direct Exam [...] Tetracycline <=1 SUSCEPTIBLE Trimethoprim/Sulfa <=10 SUSCEPTIBLE Susceptible [facility] Comment on above: Performed By: #### W DC ####[address] [id number] lab Director: Tai Albarran [facility] [id number] [place] [address] lab Director: Anibal Marquis MD Cult,Woundon 07-05-2023 Cult,Wound Specimen Description .FOOT Direct Exam [...] Tetracycline <=1 SUSCEPTIBLE Trimethoprim/Sulfa <=10 SUSCEPTIBLE Susceptible [facility] Comment on above: Performed By: #### W DC ####[facility] [id number] [place] [address] Lab Director: Tai Albarran [facility] [id number] [place] [address] Lab Director: Anibal Marquis MD Culture, Woundon 07-05-2023 Interpretation and review of laboratory results Abnormal [facility] Microorganism identified Cx Nom (Unsp spec) STAPHYLOCOCCUS AUREUS HEAVY GROWTH This isolate is methicillin susceptible. Abnormal [facility] Microorganism or agent identified Nom (Unsp spec) NO NEUTROPHILS [facility] Microorganism or agent identified Nom (Unsp spec) NO ORGANISMS SEEN [facility] Specimen Description .FOOT [facility] Glucose, Whole Bloodon 07-04 Glucose [Mass/Vol] 114 mg/dL High 65 - 99 mg/dL [facility] Interpretation and review of laboratory results Abnormal [facility] Glucose [Mass/Vol] 209 mg/dL High 65 - 99 mg/dL [facility] Interpretation and review of laboratory results Abnormal [facility] Glucose,Whole Bloodon 2023 Glucose [Mass/Vol] 114 mg/dL High 65-99 [facility] Glucose [Mass/Vol] 209 mg/dL High 65-99 [facility] Basic Metab w/rfx MGon 07-03 Anion gap [Moles/Vol] 12 mmol/L Normal 9-17 [facility] Comment on above: Performed By: #### F LESLEY, FE #### [facility] [address] [place] [address] Lead Handler: Tai Albarran MD #### CP, CDP #### [facility] [address] [place], [place] [id number] Lead Handler: Anibal Marquis MD BUN/CRE Ratio 9 Normal 9-20 [facility] Comment on above: Performed By: #### F LESLEY, FE #### [facility] [address] [place] [address] Lead Handler: Tai Albarran MD #### CP, CDP #### [facility] [address] [place], [place] [id number] Lead Handler: Anibal Marquis MD Calcium [Mass/Vol] 8.9 mg/dL Normal 8.6-10.4 [facility] Comment on above: Performed By: #### F LESLEY, FE #### [facility] [address] [place] [address] Lead Handler: Tai Albarran MD #### CP, CDP #### [facility] [address] [place] [address] Lead Handler: Anibal Marquis MD Chloride [Moles/Vol] 103 mmol/L Normal 98-107 [facility] Comment on above: Performed By: #### F LESLEY, FE #### [facility] [address] [place] [address] Lead Handler: Tai Albarran MD #### CP, CDP #### [facility] [address] [place] [address] Lead Handler: Anibal Marquis MD CO2 [Moles/Vol] 22 mmol/L Normal 20-31 [facility] Comment on above: Performed By: #### F LESLEY, FE #### [facility] [address] [place] [address] Lead Handler: Tai Albarran MD #### CP, CDP #### [facility] [address] [place] [address] Lead Handler: Anibal Marquis MD Creatinine [Mass/Vol] 1.2 mg/dL Normal 0.7-1.2 [facility] Comment on above: Performed By: #### F LESLEY, FE #### [address] [address] Lead Handler: Tai Albarran MD #### CP, CDP #### [facility] [address] [place], [place] [id number] Lead Handler: Anibal Marquis MD GFR/1.73 sq M.predicted among non-blacks MDRD (S/P/Bld) [Vol rate/Area] 68 mL/min/{1.73_m2} Normal >60 [facility] Comment on above: Result Comment: These results [...] affects renal tubular secretion. Performed By: #### F LESLEY FE #### [facility] [address] [place] [address] Lead Handler: Tai Albarran MD #### CP, CDP #### [facility] [address] [place], [place] [id number] Lead Handler: Anibal Marquis MD Glucose [Mass/Vol] 236 mg/dL High 70-99 [facility] Comment on above: Performed By: #### Ashlee SUTTON FE #### [address] [address] Lead Handler: Tai Albarran MD #### CP, CDP #### [facility] [address] [place], [place] [id number] Lead Handler: Anibal Marquis MD Potassium [Moles/Vol] 4.4 mmol/L Normal 3.7-5.3 [facility] Comment on above: Performed By: #### F LESLEY, FE #### [facility] [address] [place] [address] [id number] Lead Handler: Tai Albarran MD #### CP, CDP #### [facility] [address] [place], [place] [phone] Lead Handler: Anibal Marquis MD Sodium [Moles/Vol] 137 mmol/L Normal 135-144 [facility] Comment on above: Performed By: #### F LESLEY, FE #### [address] [id number] Lead Handler: Tai Albarran MD #### CP, CDP #### [facility] [address] [place], [place] [phone] Lead Handler: Anibal Marquis MD Urea nitrogen [Mass/Vol] 11 mg/dL Normal 8-23 [facility] Comment on above: Performed By: #### F LESLEY, FE #### [address] [phone] Lead Handler: Tai Albarran MD #### CP, CDP #### [facility] [address] [place], [place] [phone] Lead Handler: Anibal Marquis MD Basic Metabolic Panel w/ Ref belle to MGon 07-04-2023 Anion gap [Moles/Vol] 12 mmol/L 9 - 17 mmol/L [facility] Calcium [Mass/Vol] 8.9 mg/dL 8.6 - 10. 4 mg/dL [facility] Chloride [Moles/Vol] 103 mmol/L 98 - 10 7 mmol/L [facility] CO2 [Moles/Vol] 22 mmol/L 20 - 31 mmol/L [facility] Creatinine [Mass/Vol] 1.2 mg/dL 0.7 - 1.2 mg/dL [facility] GFR/1.73 sq M.predicted MDRD (S/P/Bld) [Vol rate/Area] 68 mL/min/{1.73_m2} - PINF [facility] Comment on above: These results are [...] 236 mg/dL High 70 - 99 mg/dL [facility] Interpretation and review of laboratory results Abnormal [facility] Potassium [Moles/Vol] 4.4 mmol/L 3.7 - 5.3 mmol/L [facility] Sodium [Moles/Vol] 137 mmol/L 135 - 144 mmol/L [facility] Urea nitrogen [Mass/Vol] 11 mg/dL 8 - 23 mg/dL [facility] Urea nitrogen/Creatinine [Mass ratio] 9 mg/mg 9 - 20 [facility] CBC with Auto Differentialon 07-04-2023 Basophils (Bld) [#/Vol] 0.03 10*3/uL [facility] Basophils/100 WBC (Bld) 1 % 0 - 2 % [facility] Eosinophils (Bld) [#/Vol] 0.18 10*3/uL [facility] Eosinophils/100 WBC (Bld) 3 % 0 - 5 % [facility] Erythrocyte distribution width (RBC) [Ratio] 13.8 % 12.1 - 15.2 % [facility] Hematocrit (Bld) [Volume fraction] 30.2 % Low 41.0 - 53.0 % [facility] Hemoglobin (Bld) [Mass/Vol] 10.3 g/dL Low 13.5 - 17.5 g/dL [facility] Immature granulocytes (Bld) [#/Vol] 0.01 10*3/uL [facility] Immature granulocytes/100 WBC (Bld) 0 % 0 - 5 % [facility] Interpretation and review of laboratory results Abnormal [facility] Lymphocytes/100 WBC (Bld) 37 % 13 - 44 % [facility] Lymphocytes/100 WBC (Bld) 2.14 % [facility] MCH (RBC) [Entitic mass] 31.8 pg 26. 0 - 34.0 pg [facility] MCHC (RBC) [Mass/Vol] 34.1 g/dL 31.0 - 37.0 g/dL [facility] MCV (RBC) [Entitic vol] 93.2 fL 80.0 - 100.0 fL [facility] Monocytes/100 WBC (Bld) 7 % 5 - 9 % [facility] Monocytes/100 WBC (Bld) 0.38 % [facility] Neutrophils/100 WBC (Bld) 52 % 39 - 75 % [facility] Platelet mean volume (Bld) [Entitic vol] 9.6 fL 6.0 - 12.0 fL [facility] Platelets (Bld) [#/Vol] 194 10*3/uL [facility] RBC (Bld) [#/Vol] 3.24 10*6/uL Low 4.50 - 5.9 0 m/uL [facility] Segmented neutrophils/100 WBC (Bld) 3.09 % [facility] WBC other (Bld) [#/Vol] 5.8 B ON [facility] CBC with Diffon 07-04-2023 Abs. Basophil 0.03 k/uL Normal 0.00-0.20 [facility] Comment on above: Performed By: #### F LINDSAY SUTTON #### [facility] [facility] [place], [place] [id number] Lead Handler: Tai Albarran MD #### CP, BEATA #### [facility] [address] [place] [address] Lead Handler: Anibal Marquis MD Abs.Imm.Granulocyte 0.01 k/uL Normal 0.00-0.30 [facility] Comment on above: Performed By: #### Ashlee SUTOTN FE #### [address] [phone] Lead Handler: Tai Albarran MD #### CP, CDP #### [facility] [address] [place] [phone] Lead Handler: Anibal Marquis MD Abs.Neutrophil (Seg) 3.09 k/uL Normal 2.1-6.5 [facility] Comment on above: Performed By: #### Ashlee SUTTON FE #### [address] [id number] Lead Handler: Tai Albarran MD #### CP, CDP #### [facility] [address] [place] [phone] Lead Handler: Anibal Marquis MD Basophils/100 WBC (Bld) 1 % Normal 0-2 [facility] Comment on above: Performed By: #### F LESLEY FE #### [address] [phone] Lead Handler: Tai Albarran MD #### CP, CDP #### [facility] [address] [place] [phone] Lead Handler: Anibal Marquis MD Eosinophils (Bld) [#/Vol] 0.18 10*3/uL Normal 0.00-0.40 [facility] Comment on above: Performed By: #### F LESLEY FE #### [address] [phone] Lead Handler: Tai Albarran MD #### CP, CDP #### [facility] [address] [place], [place] [phone] Lead Handler: Anibal Marquis MD Eosinophils/100 WBC (Bld) 3 % Normal 0-5 [facility] Comment on above: Performed By: #### LINDSAY MCCOY #### [address] [phone] Lead Handler: Tai Albarran MD #### CP, CDP #### [facility] [address] [place], [place] [phone] Lead Handler: Anibal Marquis MD Erythrocyte distribution width (RBC) [Ratio] 13.8 % Normal 12.1-15.2 [facility] Comment on above: Performed By: #### LINDSAY MCCOY #### [address] [phone] Lead Handler: Tai Albarran MD #### CP, CDP #### [facility] [address] [place], [place] [phone] Lead Handler: Anibal Marquis MD Hematocrit (Bld) [Volume fraction] 30.2 % Low 41.0-53.0 [facility] Comment on above: Performed By: #### LINDSAY MCCOY #### [address] [phone] Lead Handler: Tai Albarran MD #### CP, CDP #### [facility] [address] [place], [place] [phone] Lead Handler: Anibal Marquis MD Hemoglobin (Bld) [Mass/Vol] 10.3 g/dL Low 13.5-17.5 [facility] Comment on above: Performed By: #### LINDSAY MCCOY #### [address] [phone] Lead Handler: Tai Albarran MD #### CP, CDP #### [facility] [address] [place] [address] Lead Handler: Anibal Marquis MD Immature granulocytes/100 WBC (Bld) 0 % Normal 0-5 [facility] Comment on above: Performed By: #### Ashlee SUTTON FE #### [address] [phone] Lead Handler: Tai Albarran MD #### CP, CDP #### [facility] [address] [place], [place] [phone] Lead Handler: Anibal Marquis MD Lymphocytes (Bld) [#/Vol] 2.14 10*3/uL Normal 1.00-4.80 [facility] Comment on above: Performed By: #### Ashlee SUTTON FE #### [address] [phone] Lead Handler: Tai Albarran MD #### CP, CDP #### [facility] [address] [place], [place] [phone] Lead Handler: Anibal Marquis MD Lymphocytes/100 WBC (Bld) 37 % Normal 13-44 [facility] Comment on above: Performed By: #### Ashlee SUTTON FE #### [address] [address] Lead Handler: Tai Albarran MD #### CP, CDP #### [facility] [address] [place], [place] [phone] Lead Handler: Anibal Marquis MD MCH (RBC) [Entitic mass] 31.8 pg Normal 26.0-34.0 [facility] Comment on above: Performed By: #### Ashlee SUTTON FE #### [address] [phone] Lead Handler: Tai Albarran MD #### CP, CDP #### [facility] [address] [place], [place] [phone] Lead Handler: Anibal Marquis MD MCHC (RBC) [Mass/Vol] 34.1 g/dL Normal 31.0-37.0 [facility] Comment on above: Performed By: #### LINDSAY MCCOY #### [address] [phone] Lead Handler: Tai Albarran MD #### CP, CDP #### [facility] [address] [place] [address] Lead Handler: Anibal Marquis MD MCV (RBC) [Entitic vol] 93.2 fL Normal 80.0-100.0 [facility] Comment on above: Performed By: #### LINDSAY MCCOY #### [address] [phone] Lead Handler: Tai Albarran MD #### CP, CDP #### [facility] [address] [place] [address] Lead Handler: Anibal Marquis MD Monocytes (Bld) [#/Vol] 0.38 10*3/uL Normal 0.00-1.00 [facility] Comment on above: Performed By: #### LINDSAY MCCOY #### [address] [phone] Lead Handler: Tai Albarran MD #### CP, CDP #### [facility] [address] [place] [address] Lead Handler: Anibal Marquis MD Monocytes/100 WBC (Bld) 7 % Normal 5-9 [facility] Comment on above: Performed By: #### Ashlee SUTTON FE #### [address] [id number] Lead Handler: Tai Albarran MD #### CP, CDP #### [facility] [address] [place] [address] Lead Handler: Anibal Marquis MD Neutrophil (Seg) 52 % Normal 39-75 [facility] Comment on above: Performed By: #### F LESLEY FE #### [place] [address]232 [place], [place] [phone] Lead Handler: Tai Albarran MD #### CP, CDP #### [facility] [address] [place] [address] Lead Handler: Anibal Marquis MD Platelet mean volume (Bld) [Entitic vol] 9.6 fL Normal 6.0-12.0 [facility] Comment on above: Performed By: #### Ashlee SUTTON FE #### [address] [phone] Lead Handler: Tai Albarran MD #### CP, CDP #### [facility] [address] [place] [address] Lead Handler: Anibal Marquis MD Platelets (Bld) [#/Vol] 194 10*3/uL Normal 140-450 [facility] Comment on above: Performed By: #### Ashlee SUTTON FE #### [address] [phone] Lead Handler: Tai Albarran MD #### CP, CDP #### [facility] [address] [place] [address] Lead Handler: Anibal Marquis MD RBC (Bld) [#/Vol] 3.24 10*6/uL Low 4.50-5.90 [facility] Comment on above: Performed By: #### Ashlee SUTTON FE #### [address] [phone] Lead Handler: Tai Albarran MD #### CP, CDP #### [facility] [address] [place] [address] Lead Handler: Anibal Marquis MD WBC (Bld) [#/Vol] 5.8 10*3/uL Normal 3.5-11.0 [facility] Comment on above: Performed By: #### F LINDSAY SUTTON #### [facility] [address] [place] [address] Lead Handler: Tai Albarran MD #### CP, CDP #### [facility] [address] [place] [address] Lead Handler: Anibal Marquis MD Glucose, Whole Bloodon 07-03 Glucose [Mass/Vol] 241 mg/dL High 65 - 99 mg/dL [facility] Interpretation and review of laboratory results Abnormal [facility] Glucose [Mass/Vol] 241 mg/dL High 65 - 99 mg/dL [facility] Interpretation and review of laboratory results Abnormal [facility] Glucose [Mass/Vol] 73 mg/dL 65 - 99 mg/dL [facility] Glucose [Mass/Vol] 171 mg/dL High 65 - 99 mg/dL [facility] Interpretation and review of laboratory results Abnormal [facility] Glucose,Whole Bloodon 2023 Glucose [Mass/Vol] 241 mg/dL High 65-99 [facility] Glucose [Mass/Vol] 241 mg/dL High -99 [facility] Glucose [Mass/Vol] 73 mg/dL Normal -99 [facility] Glucose [Mass/Vol] 171 mg/dL High -99 [facility] Hemoglobin A1Con 07-04-2023 Glucose [Mass/Vol] 258 mg/dL Normal [facility] Comment on above: Result Comment: The ADA and AACC recommend providing the estimated average glucose result to permit better patient understanding of their HBA1c result. Performed By: #### F LINDSAY SUTTON #### [facility] [address] [place], [place] [phone] Lead Handler: Tai Albarran MD #### CP, CDP #### [facility] [address] [place], [place] [phone] Lead Handler: Anibal Marquis MD HbA1c (Bld) [Mass fraction] 10.6 % High 4.0-6.0 [facility] Comment on above: Performed By: #### F LESLEY, LINDSAY #### [facility] [address] [place], [place] [phone] Lead Handler: Tai Albarran MD #### CP, CDP #### [facility] [address] [place] [address] Lead Handler: Anibal Marquis MD Hemoglobin A1con 07-04-2023 Average glucose Estimated from glycated hemoglobin (Bld) [Mass/Vol] 258 mg/dL [facility] Comment on above: The ADA and AACC rec ommend providing the estimated average glucose result to permit better patient understanding of their HBA1c result. HbA1c (Bld) [Mass fraction] 10.6 % High 4.0 - 6.0 % [facility] Interpretation and review of laboratory results Abnormal [facility] CBC with Auto Differentialon 07-03-2023 Basophils (Bld) [#/Vol] 0.03 10*3/uL [facility] Basophils/100 WBC (Bld) 1 % 0 - 2 % B [facility] Eosinophils (Bld) [#/Vol] 0.13 10*3/uL [facility] Eosinophils/100 WBC (Bld) 2 % 0 - 5 % [facility] Erythrocyte distribution width (RBC) [Ratio] 13.6 % 12.1 - 15.2 % [facility] Hematocrit (Bld) [Volume fraction] 32.2 % Low 41.0 - 53.0 % [facility] Hemoglobin (Bld) [Mass/Vol] 10.8 g/dL Low 13.5 - 17.5 g/dL [facility] Immature granulocytes (Bld) [#/Vol] 0.02 10*3/uL [facility] Immature granulocytes/100 WBC (Bld) 0 % 0 - 5 % [facility] Interpretation and review of laboratory results Abnormal [facility] Lymphocytes/100 WBC (Bld) 26 % 13 - 44 % [facility] Lymphocytes/100 WBC (Bld) 1.57 % [facility] MCH (RBC) [Entitic mass] 30.6 pg 26. 0 - 34.0 pg [facility] MCHC (RBC) [Mass/Vol] 33.5 g/dL 31.0 - 37.0 g/dL [facility] MCV (RBC) [Entitic vol] 91.2 fL 80.0 - 100.0 fL [facility] Monocytes/100 WBC (Bld) 6 % 5 - 9 % [facility] Monocytes/100 WBC (Bld) 0.35 % [facility] Neutrophils/100 WBC (Bld) 65 % 39 - 75 % [facility] Platelet mean volume (Bld) [Entitic vol] 9.9 fL 6.0 - 12.0 fL [facility] Platelets (Bld) [#/Vol] 203 10*3/uL [facility] RBC (Bld) [#/Vol] 3.53 10*6/uL Low 4.50 - 5.9 0 m/uL [facility] Segmented neutrophils/100 WBC (Bld) 3.88 % [facility] WBC other (Bld) [#/Vol] 6.0 B ON [facility] CBC with Diffon 07-03-2023 Abs. Basophil 0.03 k/uL Normal 0.00-0.20 [facility] Comment on above: Performed By: #### C P, CDP ####[facility] [id number] [place], [place] [id number] Lab Director: Anibal Marquis MD Abs.Imm.Granulocyte 0.02 k/uL Normal 0.00-0.30 [facility] Comment on above: Performed By: #### C P, CDP ####[facility] [address] [place], [place] [phone] Lab Director: Anibal Marquis MD Abs.Neutrophil (Seg) 3.88 k/uL Normal 2.1-6.5 [facility] Comment on above: Performed By: #### C P, CDP ####[facility] [id number] [place] [address] Lab Director: Anibal Marquis MD Basophils/100 WBC (Bld) 1 % Normal 0-2 [facility] Comment on above: Performed By: #### C P, CDP ####[facility] W[address] [place] [address] Lab Director: Anibal Marquis MD Eosinophils (Bld) [#/Vol] 0.13 10*3/uL Normal 0.00-0.40 [facility] Comment on above: Performed By: #### C P, CDP ####[facility] [address] [place] [address] Lab Director: Anibal Marquis MD Eosinophils/100 WBC (Bld) 2 % Normal 0-5 [facility] Comment on above: Performed By: #### C P, CDP ####[facility] Gep[address] [facility] Hospital[facility], [place] [phone] Lab Director: Anibal Marquis MD Erythrocyte distribution width (RBC) [Ratio] 13.6 % Normal 12.1-15.2 [facility] Comment on above: Performed By: #### C P, CDP ####[facility] [id number] [place] [address] Lab Director: Anibal Maqruis MD Hematocrit (Bld) [Volume fraction] 32.2 % Low 41.0-53.0 [facility] Comment on above: Performed By: #### C P, CDP ####[facility] [id number] [place], [place] [id number] Lab Director: Anibal Marquis MD Hemoglobin (Bld) [Mass/Vol] 10.8 g/dL Low 13.5-17.5 [facility] Comment on above: Performed By: #### C P, CDP ####[facility] [id number] [place] [address] Lab Director: Anibal Marquis MD Immature granulocytes/100 WBC (Bld) 0 % Normal 0-5 [facility] Comment on above: Performed By: #### C P, CDP ####[facility] [address] [place] [address] Lab Director: Anibal Marquis MD Lymphocytes (Bld) [#/Vol] 1.57 10*3/uL Normal 1.00-4.80 [facility] Comment on above: Performed By: #### C P, CDP ####[facility] [address] [place] [address] lab Director: Anibal Marquis MD Lymphocytes/100 WBC (Bld) 26 % Normal 13-44 [facility] Comment on above: Performed By: #### C P, CDP ####[facility] [address] [place] [address] Lab Director: Anibal Marquis MD MCH (RBC) [Entitic mass] 30.6 pg Normal 26.0-34.0 [facility] Comment on above: Performed By: #### C P, CDP ####[facility] [address] [place] [address] Lab Director: Anibal Marquis MD MCHC (RBC) [Mass/Vol] 33.5 g/dL Normal 31.0-37.0 [facility] Comment on above: Performed By: #### C P, CDP ####[facility] [address] [place] [address] Lab Director: Anibal Marquis MD MCV (RBC) [Entitic vol] 91.2 fL Normal 80.0-100.0 [facility] Comment on above: Performed By: #### C P, CDP ####[facility] [address] [place] [address] Lab Director: Anibal Marquis MD Monocytes (Bld) [#/Vol] 0.35 10*3/uL Normal 0.00-1.00 [facility] Comment on above: Performed By: #### C P, CDP ####[facility] [address] [place] [phone] Director: Anbial Marquis MD Monocytes/100 WBC (Bld) 6 % Normal 5-9 [facility] Comment on above: Performed By: #### C P, CDP ####[facility] [address] [place], [place] [phone] Director: Anibal Marquis MD Neutrophil (Seg) 65 % Normal 39-75 [facility] Comment on above: Performed By: #### C P, CDP ####[facility] [address]qr[address] [facility] [place], [place] [phone] Director: Anibal Marquis MD Platelet mean volume (Bld) [Entitic vol] 9.9 fL Normal 6.0-12.0 [facility] Comment on above: Performed By: #### C P, CDP ####[facility] [id number] [facility] [place]W[facility] [address] Lab Director: Anibal Marquis MD Platelets (Bld) [#/Vol] 203 10*3/uL Normal 140-450 [facility] Comment on above: Performed By: #### C P, CDP ####[facility] [id number] [facility] [place] [address] Lab Director: Anibal Marquis MD RBC (Bld) [#/Vol] 3.53 10*6/uL Low 4.50-5.90 [facility] Comment on above: Performed By: #### C P, CDP ####[facility] [address] [place] [address] lab Director: Anibal Marquis MD WBC (Bld) [#/Vol] 6.0 10*3/uL Normal 3.5-11.0 [facility] Comment on above: Performed By: #### C P, CDP ####[facility] [address] [place] [address] lab Director: Anibal Marquis MD [facility] Albumin [Mass/Vol] 4.2 g/dL 3.5 - 5.2 g/dL [facility] ALP [Catalytic activity/Vol] 138 U/L High 40 - 129 U/L [facility] ALT [Catalytic activity/Vol] 15 U/L 5 - 41 U/L [facility] Anion gap [Moles/Vol] 13 mmol/L 9 - 17 mmol/L [facility] AST [Catalytic activity/Vol] 16 U/L NINF - 40 U/L [facility] Bilirubin [Mass/Vol] 0.8 mg/dL 0.3 - 1 .2 mg/dL [facility] Calcium [Mass/Vol] 9.3 mg/dL 8.6 - 10. 4 mg/dL [facility] Chloride [Moles/Vol] 100 mmol/L 98 - 10 7 mmol/L [facility] CO2 [Moles/Vol] 25 mmol/L 20 - 31 mmol/L [facility] Creatinine [Mass/Vol] 1.2 mg/dL 0.7 - 1.2 mg/dL [facility] GFR/1.73 sq M.predicted MDRD (S/P/Bld) [Vol rate/Area] 68 mL/min/{1.73_m2} - PINF [facility] Comment on above: These results are [...] Critically high 70 - 9 9 mg/dL [facility] Interpretation and review of laboratory results Abnormal [facility] Potassium [Moles/Vol] 4.8 mmol/L 3.7 - 5.3 mmol/L [facility] Protein [Mass/Vol] 7.3 g/dL 6.4 - 8.3 g/dL [facility] Sodium [Moles/Vol] 138 mmol/L 135 - 144 mmol/L [facility] Urea nitrogen [Mass/Vol] 11 mg/dL 8 - 23 mg/dL [facility] Urea nitrogen/Creatinine [Mass ratio] 9 mg/mg 9 - 20 [facility] Comp Metabolic Profon 2023 Albumin [Mass/Vol] 4.2 g/dL Normal 3.5-5.2 [facility] Comment on above: Performed By: #### C P, CDP ####[facility] Clw[address] [place] [address] Lab Director: Anibal Marquis MD Alkaline Phos 138 U/L High 40-129 [facility] Comment on above: Performed By: #### C P, CDP ####[facility] [id number] [place] [address] Lab Director: Anibal Marquis MD ALT [Catalytic activity/Vol] 15 U/L Normal 5-41 [facility] Comment on above: Performed By: #### C P, CDP ####[facility] [id number] [place] [place] [address] Lab Director: Anibal Marquis MD Anion gap [Moles/Vol] 13 mmol/L Normal 9-17 [facility] Comment on above: Performed By: #### C P, CDP ####[facility] [address] [place] [address] Lab Director: Anibal Marquis MD AST [Catalytic activity/Vol] 16 U/L Normal <40 [facility] Comment on above: Performed By: #### C P, CDP ####[facility] [address] [place] [address] lab Director: Anibal Marquis MD Bilirubin [Mass/Vol] 0.8 mg/dL Normal 0.3-1.2 [facility] Comment on above: Performed By: #### C P, CDP ####[facility] [address] [place] [address] lab Director: Anibal Marquis MD BUN/CRE Ratio 9 Normal 9-20 [facility] Comment on above: Performed By: #### C P, CDP ####[facility] [address] [place] [address] Lab Director: Anibal Marquis MD Calcium [Mass/Vol] 9.3 mg/dL Normal 8.6-10.4 [facility] Comment on above: Performed By: #### C P, CDP ####[facility] [id number] [place] [address] Lab Director: Anibal Marquis MD Chloride [Moles/Vol] 100 mmol/L Normal 98-107 [facility] Comment on above: Performed By: #### C P, CDP ####[facility] [id number] [place] [address] Lab Director: Anibal Marquis MD CO2 [Moles/Vol] 25 mmol/L Normal 20-31 [facility] Comment on above: Performed By: #### C P, CDP ####[facility] Ysm[address] [place] [address] Lab Director: Anibal Marquis MD Creatinine [Mass/Vol] 1.2 mg/dL Normal 0.7-1.2 [facility] Comment on above: Performed By: #### C P, CDP ####[facility] [address] [place] [address] Lab Director: Anibal Marquis MD GFR/1.73 sq M.predicted among non-blacks MDRD (S/P/Bld) [Vol rate/Area] 68 mL/min/{1.73_m2} Normal >60 [facility] Comment on above: Result Comment: These results [...] renal tubular secretion. Performed By: #### C P, CDP ####[facility] [id number] [place] [address] Lab Director: Anibal Marquis MD Glucose [Mass/Vol] 459 mg/dL Critically high 70-99 [facility] Comment on above: Performed By: #### C P, CDP ####[facility] [id number] [place] [address] Lab Director: Anibal Marquis MD Potassium [Moles/Vol] 4.8 mmol/L Normal 3.7-5.3 [facility] Comment on above: Performed By: #### C P, CDP ####[facility] [id number] [place] [address] Lab Director: Anibal Marquis MD Protein [Mass/Vol] 7.3 g/dL Normal 6.4-8.3 [facility] Comment on above: Performed By: #### C P, CDP ####[facility] [id number] [place] [address] Lab Director: Anibal Marquis MD Sodium [Moles/Vol] 138 mmol/L Normal 135-144 [facility] Comment on above: Performed By: #### C P, CDP ####[facility] [id number] [place] [address] Lab Director: Anibal Marquis MD Urea nitrogen [Mass/Vol] 11 mg/dL Normal 8-23 [facility] Comment on above: Performed By: #### C P, CDP ####[facility] [id number] [place] [address] lab Director: Anibal Marquis MD Glucose, Whole Bloodon 07-02 Glucose [Mass/Vol] 157 mg/dL High 65 - 99 mg/dL [facility] Interpretation and review of laboratory results Abnormal [facility] Glucose,Whole Bloodon 2023 Glucose [Mass/Vol] 157 mg/dL High 65-99 [facility] Lactic Acidon 07-03-2023 Lactate (BldV) [Moles/Vol] 2.2 mmol/L 0.5 - 2.2 mmol/L [facility] Lactate [Moles/Vol] 2.2 mmol/L Normal 0.5-2.2 [facility] Comment on above: Performed By: #### L ACTIC #### [facility] [address] [place] [address] Lead Handler: Anibal Marquis MD XR FOOT LEFT (MIN 3 VIEWS)on 07-03-2023 [...] Timoteo Monroy MD 07/03/23 Final result Normal [facility] XR Foot - left 3 Viewson [...] likely osteomyelitis of the ankle as well. [facility] CONSOLIDATED IMAGES REVIEWED: XR FOOT LEFT (MIN 3 VIEWS) COMPARISON: 06/26/2022. CLINICAL INDICATION: new wound on arch of foot (not there yesterday), Hx DM w/ neuropathy and CMT disease, r/o FB or air [facility]SOL[facility] Tiomteo Monroy MD - 07/03/2023 IMAGES REVIEWED: XR [...] likely osteomyelitis of the ankle as well. [facility] Radiology Study observation (narrative) [facility] XR Foot - left 3 ViewsOrdere d By: Timoteo Monroy on 07-03-2023 [facility] Work Phone: US Kidneyon 06-06-2023 Normal study. [facility] CONSOLIDATED EXAM: US RENAL COMPLETE. HISTORY: HALEY (acute kidney injury) ([facility]). COMPARISON: CT abdomen and pelvis 12/04/2021 FINDINGS: [...] 459 mL with 40 mL postvoid residual. [facility] CON[facility] Primo Neely Jr., MD - 06/06/2023 [...] 40 mL postvoid residual. IMPRESSION: Normal study. [facility] Radiology Study observation (narrative) [facility] US KidneyOrdered By: Primo Neely on 06-06-2023 [facility] Work Phone: US RENAL COMPLETEon 06-06-19 [...] Neely Jr., MD 06/06/23 Final result Normal [facility] CBC with Diffon 05-21-2023 Abs. Basophil 0.03 k/uL Normal 0.00-0.20 [facility] Comment on above: Performed By: #### F LINDSAY SUTTON #### [facility] [employer] [address] [place] [address] Lead Handler: Tai Albarran MD #### CPBEATA #### [facility] [address] [place] [address] Lead Handler: Anibal Marquis MD Abs.Imm.Granulocyte 0.01 k/uL Normal 0.00-0.30 [facility] Comment on above: Performed By: #### F LESLEY, FE #### [facility] [address] [place], [place] [id number] Lead Handler: Tai Albarran MD #### CP, CDP #### [facility] [address] [place], [place] [id number] Lead Handler: Anibal Marquis MD Abs.Neutrophil (Seg) 2.97 k/uL Normal 2.1-6.5 [facility] Comment on above: Performed By: #### F LESLEY, FE #### [address] [place], [place] 6239408 Lead Handler: Tai Albarran MD #### CP, CDP #### [facility] [address] [place] [address] Lead Handler: Anibal Marquis MD Basophils/100 WBC (Bld) 1 % Normal 0-2 [facility] Comment on above: Performed By: #### F LESLEY, FE #### [facility] [address] [place], [place] 5735808 Lead Handler: Tai Albarran MD #### CP, CDP #### [facility] [address] [place], [place] 9345490 Lead Handler: Anibal Marquis MD Eosinophils (Bld) [#/Vol] 0.17 10*3/uL Normal 0.00-0.40 [facility] Comment on above: Performed By: #### F LESLEY, FE #### [facility] [address] [place], [place] 4454708 Lead Handler: Tai Albarran MD #### CP, CDP #### [facility] [address] [place], [place] 7015890 Lead Handler: Anibal Marquis MD Eosinophils/100 WBC (Bld) 3 % Normal 0-5 [facility] Comment on above: Performed By: #### F LESLEY, FE #### [facility] [address] [place], [place] 5564708 Lead Handler: Tai Albarran MD #### CP, CDP #### [facility] [address] [place], [place] 8625290 Lead Handler: Anibal Marquis MD Erythrocyte distribution width (RBC) [Ratio] 13.0 % Normal 12.1-15.2 [facility] Comment on above: Performed By: #### F LESLEY, FE #### [facility] [address] [place], [place] 5986508 Lead Handler: Tai Albarran MD #### CP, CDP #### [facility] [address] [place], [place] 1028990 Lead Handler: Anibal Marquis MD Hematocrit (Bld) [Volume fraction] 34.1 % Low 41.0-53.0 [facility] Comment on above: Performed By: #### F LESLEY, FE #### [facility] [address] [place], [place] 8921908 Lead Handler: Tai Albarran MD #### CP, CDP #### [facility] [address] [place], [place] 7115590 Lead Handler: Anibal Marquis MD Hemoglobin (Bld) [Mass/Vol] 11.3 g/dL Low 13.5-17.5 [facility] Comment on above: Performed By: #### F LESLEY, FE #### [facility] [address] [place], [place] 8400408 Lead Handler: Tai Albarran MD #### CP, CDP #### [facility] [address] [place], [place] [id number] Lead Handler: Anibal Marquis MD Immature granulocytes/100 WBC (Bld) 0 % Normal 0-5 [facility] Comment on above: Performed By: #### F LESLEY, FE #### [address] [place], [place] 0110008 Lead Handler: Tai Albarran MD #### CP, CDP #### [facility] [address] [place], [place] 2164690 Lead Handler: Anibal Marquis MD Lymphocytes (Bld) [#/Vol] 1.72 10*3/uL Normal 1.00-4.80 [facility] Comment on above: Performed By: #### F LESLEY, FE #### [address] [id number] Lead Handler: Tai Albarran MD #### CP, CDP #### [facility] [address] [place] [address] Lead Handler: Anibal Marquis MD Lymphocytes/100 WBC (Bld) 33 % Normal 13-44 [facility] Comment on above: Performed By: #### F LESLEY, FE #### [address] 1798508 Lead Handler: Tai Albarran MD #### CP, CDP #### [facility] [address] [place] [address] Lead Handler: Anibal Marquis MD MCH (RBC) [Entitic mass] 30.5 pg Normal 26.0-34.0 [facility] Comment on above: Performed By: #### F LESLEY, FE #### [address] 5807808 Lead Handler: Tai Albarran MD #### CP, CDP #### [facility] [address] [place], [place] [id number] Lead Handler: Anibal Marquis MD MCHC (RBC) [Mass/Vol] 33.1 g/dL Normal 31.0-37.0 [facility] Comment on above: Performed By: #### F LESLEY, FE #### [address] [place] [address] Lead Handler: Tai Albarran MD #### CP, CDP #### [facility] [address] [place], [place] [id number] Lead Handler: Anibal Marquis MD MCV (RBC) [Entitic vol] 92.2 fL Normal 80.0-100.0 [facility] Comment on above: Performed By: #### F LESLEY, FE #### [address] [address] Lead Handler: Tai Albarran MD #### CP, CDP #### [facility] [address] [place], [place] 3784990 Lead Handler: Anibal Marquis MD Monocytes (Bld) [#/Vol] 0.36 10*3/uL Normal 0.00-1.00 [facility] Comment on above: Performed By: #### Ashlee SUTTON, FE #### [address] [address] Lead Handler: Tai Albarran MD #### CP, CDP #### [facility] [address] [place], [place] 5479590 Lead Handler: Anibal Marquis MD Monocytes/100 WBC (Bld) 7 % Normal 5-9 [facility] Comment on above: Performed By: #### F LESLEY, FE #### [address] [address] Lead Handler: Tai Albarran MD #### CP, CDP #### [facility] [address] [place] [address] Lead Handler: Anibal Marquis MD Neutrophil (Seg) 56 % Normal 39-75 [facility] Comment on above: Performed By: #### F LESLEY, FE #### [address], [place] 3235708 Lead Handler: Tai Albarran MD #### CP, CDP #### [facility] [address] [place], [place] 8911090 Lead Handler: Anibal Marquis MD Platelet mean volume (Bld) [Entitic vol] 9.4 fL Normal 6.0-12.0 [facility] Comment on above: Performed By: #### F LESLEY, FE #### [facility] [address] [place], [place] 5066908 Lead Handler: Tai Albarran MD #### CP, CDP #### [facility] [address] [place] [address] Lead Handler: Anibal Marquis MD Platelets (Bld) [#/Vol] 197 10*3/uL Normal 140-450 [facility] Comment on above: Performed By: #### Ashlee SUTTON FE #### [facility] [address] [place] [address] Lead Handler: Tai Albarran MD #### CP, CDP #### [facility] [address] [place], [place] 4356990 Lead Handler: Anibal Marquis MD RBC (Bld) [#/Vol] 3.70 10*6/uL Low 4.50-5.90 [facility] Comment on above: Performed By: #### Ashlee SUTTON, FE #### [facility] [address] [place], [place] 1748508 Lead Handler: Tai Albarran MD #### CP, CDP #### [facility] [address] [place] [address] Lead Handler: Anibal Marquis MD WBC (Bld) [#/Vol] 5.3 10*3/uL Normal 3.5-11.0 [facility] Comment on above: Performed By: #### Ashlee SUTTON FE #### [facility] [address] [place] [address] Lead Handler: Tai Albarran MD #### CP, CDP #### [facility] [address] [place] [address] Lead Handler: Anibal Marquis MD Comp Metabolic Profon 2023 Albumin [Mass/Vol] 4.1 g/dL Normal 3.5-5.2 [facility] Comment on above: Performed By: #### F LESLEY, FE #### [address] [address] Lead Handler: Tai Albarran MD #### CP, CDP #### [facility] [address] [place] [address] Lead Handler: Anibal Marquis MD Alkaline Phos 112 U/L Normal 40-129 [facility] Comment on above: Performed By: #### Ashlee SUTTON FE #### [address] [address] Lead Handler: Tai Albarran MD #### CP, CDP #### [facility] [address] [place] [address] Lead Handler: Anibal Marquis MD ALT [Catalytic activity/Vol] 14 U/L Normal 5-41 [facility] Comment on above: Performed By: #### Ashlee SUTTON, FE #### [facility] [address] [place] [address] Lead Handler: Tai Albarran MD #### CP, CDP #### [facility] [address] [place] [address] Lead Handler: Anibal Marquis MD Anion gap [Moles/Vol] 15 mmol/L Normal 9-17 [facility] Comment on above: Performed By: #### Ashlee SUTTON FE #### [address] 0337908 Lead Handler: Tai Albarran MD #### CP, CDP #### [facility] [address] [place], [place] 7745190 Lead Handler: Anibal Marquis MD AST [Catalytic activity/Vol] 16 U/L Normal <40 [facility] Comment on above: Performed By: #### F LESLEY, FE #### [address] [address] Lead Handler: Tai Albarran MD #### CP, CDP #### [facility] [address] [place], [place] 3490490 Lead Handler: Anibal Marquis MD Bilirubin [Mass/Vol] 0.7 mg/dL Normal 0.3-1.2 [facility] Comment on above: Performed By: #### F LESLEY, FE #### [address] 2574208 Lead Handler: Tai Albarran MD #### CP, CDP #### [facility] [address] [place], [place] 8959590 Lead Handler: Anibal Marquis MD BUN/CRE Ratio 13 Normal 9-20 [facility] Comment on above: Performed By: #### F LESLEY, FE #### [address] [address] Lead Handler: Tai Albarran MD #### CP, CDP #### [facility] [address] [place], [place] 1351490 Lead Handler: Anibal Marquis MD Calcium [Mass/Vol] 9.4 mg/dL Normal 8.6-10.4 [facility] Comment on above: Performed By: #### F LESLEY, FE #### [address] [address] Lead Handler: Tai Albarran MD #### CP, CDP #### [facility] [address] [place], [place] 9473990 Lead Handler: Anibal Marquis MD Chloride [Moles/Vol] 104 mmol/L Normal 98-107 [facility] Comment on above: Performed By: #### F LESLEY, FE #### [facility] [address] [place], [place] 8534708 Lead Handler: Tai Albarran MD #### CP, CDP #### [facility] [address] [place], [place] 1471590 Lead Handler: Anibal Marquis MD CO2 [Moles/Vol] 22 mmol/L Normal 20-31 [facility] Comment on above: Performed By: #### F LESLEY, FE #### [address] [place], [place] 1459408 Lead Handler: Tai Albarran MD #### CP, CDP #### [facility] [address] [place], [place] 2808290 Lead Handler: Anibal Marquis MD Creatinine [Mass/Vol] 2.1 mg/dL High 0.7-1.2 [facility] Comment on above: Performed By: #### F LESLEY, FE #### [facility] [address] [place], [place] 0055408 Lead Handler: Tai Albarran MD #### CP, CDP #### [facility] [address] [place], [place] 4616790 Lead Handler: Anibal Marquis MD GFR/1.73 sq M.predicted among non-blacks MDRD (S/P/Bld) [Vol rate/Area] 35 mL/min/{1.73_m2} Low >60 [facility] Comment on above: Result Comment: These results [...] affects renal tubular secretion. Performed By: #### LINDSAY MCCOY #### [address] [id number] Lead Handler: Tai Albarran MD #### CP, CDP #### [facility] [address] [place], [place] 5325290 Lead Handler: Anibal Marquis MD Glucose [Mass/Vol] 247 mg/dL High 70-99 [facility] Comment on above: Performed By: #### LINDSAY MCCOY #### [address] [address] Lead Handler: Tai Albarran MD #### CP, CDP #### [facility] [address] [place], [place] 2212090 Lead Handler: Anibal Marquis MD Potassium [Moles/Vol] 4.8 mmol/L Normal 3.7-5.3 [facility] Comment on above: Performed By: #### LINDSAY MCCOY #### [address] [address] Lead Handler: Tai Albarran MD #### CP, CDP #### [facility] [address] [place], [place] 2081390 Lead Handler: Anibal Marquis MD Protein [Mass/Vol] 7.0 g/dL Normal 6.4-8.3 [facility] Comment on above: Performed By: #### LINDSAY MCCOY #### [address] 7804308 Lead Handler: Tai Albarran MD #### CP, CDP #### [facility] [address] [place], [place] 4281590 Lead Handler: Anibal Marquis MD Sodium [Moles/Vol] 141 mmol/L Normal 135-144 [facility] Comment on above: Performed By: #### F LESLEY, FE #### [address] [place] [address] Lead Handler: Tai Albarran MD #### CP, CDP #### [facility] [address] [place], [place] 5612190 Lead Handler: Anibal Marquis MD Urea nitrogen [Mass/Vol] 28 mg/dL High 8-23 [facility] Comment on above: Performed By: #### F LESLEY, FE #### [address] [address] Lead Handler: Tai Albarran MD #### CP, CDP #### [facility] [address] [place], [place] 8426290 Lead Handler: Anibal Marquis MD Ferritinon 05-21-2023 Ferritin [Mass/Vol] 192 ng/mL Normal 30-400 [facility] Comment on above: Result Comment: No r eference range established for this age/gender. Performed By: #### F LESLEY, FE #### [address] [address] Lead Handler: Tai Albarran MD #### CP, CDP #### [facility] [address] [place], [place] 8009590 Lead Handler: Anibal Marquis MD Ironon 05-21-2023 Iron [Mass/Vol] 71 ug/dL Normal 61-157 [facility] Comment on above: Performed By: #### F LESLEY, FE #### [address] [id number] Lead Handler: Tai Albarran MD #### CP, CDP #### [facility] [address] [place], [place] 5844290 Lead Handler: Anibal Marquis MD Insurance Correspondence Off iceon 02-21-2023 Insurance Correspondence Office [phone] [id number] 69#1.00TIFF Normal [facility] Nursing Assessment - Woundon 02-19-2023 Nursing Assessment - Wound [id number] 51#1.00TIFF Normal [facility] Nursing Assessment - Woundon 02-15-2023 Nursing Assessment - Wound [id number] 8#1.00TIFF Normal [facility] Ironon 02-14-2023 Iron [Mass/Vol] 70 ug/dL Normal 59-158 [facility] Comment on above: Performed By: #### LINDSAY MCCOY #### [place] 6942908 Lead Handler: Tai Albarran MD #### CP, CDP #### [facility] [address] [place] [id number] Lead Handler: Anibal Marquis MD CBC with Diffon 02-13-2023 Abs. Basophil 0.03 k/uL Normal 0.00-0.20 [facility] Comment on above: Performed By: #### LINDSAY MCCOY #### [place] 6942908 Lead Handler: Tai Albarran MD #### CP, CDP #### [facility] [address] [place] 4561990 Lead Handler: Anibal Marquis MD Abs.Imm.Granulocyte 0.02 k/uL Normal 0.00-0.30 [facility] Comment on above: Performed By: #### LINDSAY MCCOY #### [place] 6942908 Lead Handler: aTi Albarran MD #### CP, CDP #### [facility] [address] [place], [place] 2360690 Lead Handler: Anibal Marquis MD Abs.Neutrophil (Seg) 3.55 k/uL Normal 2.1-6.5 [facility] Comment on above: Performed By: #### F LESLEY FE #### [address] [phone] Lead Handler: Tai Albarran MD #### CP, CDP #### [facility] [address] [place], [place] 3557090 Lead Handler: Anibal Marquis MD Basophils/100 WBC (Bld) 1 % Normal 0-2 [facility] Comment on above: Performed By: #### Ashlee SUTTON FE #### [address] 2311808 Lead Handler: Tai Albarran MD #### CP, CDP #### [facility] [address] [place], [place] 4090290 Lead Handler: Anibal Marquis MD Eosinophils (Bld) [#/Vol] 0.15 10*3/uL Normal 0.00-0.40 [facility] Comment on above: Performed By: #### Ashlee SUTTON FE #### [address] [id number] Lead Handler: Tai Albarran MD #### CP, CDP #### [facility] [address] [place], [place] 8174290 Lead Handler: Anibal Marquis MD Eosinophils/100 WBC (Bld) 3 % Normal 0-5 [facility] Comment on above: Performed By: #### F LESLEY, FE #### [address] [id number] Lead Handler: Tai Albarran MD #### CP, CDP #### [facility] [address] [place], [place] 8873890 Lead Handler: Anibal Marquis MD Erythrocyte distribution width (RBC) [Ratio] 13.7 % Normal 12.1-15.2 [facility] Comment on above: Performed By: #### Ashlee SUTTON FE #### [address] [id number] Lead Handler: Tai Albarran MD #### CP, CDP #### [facility] [address] [place], [place] 4760190 Lead Handler: Anibal Marquis MD Hematocrit (Bld) [Volume fraction] 34.3 % Low 41.0-53.0 [facility] Comment on above: Performed By: #### LINDSAY MCCOY #### [address] 1928808 Lead Handler: Tai Albarran MD #### CP, CDP #### [facility] [address] [place], [place] 7480890 Lead Handler: Anibal Marquis MD Hemoglobin (Bld) [Mass/Vol] 11.4 g/dL Low 13.5-17.5 [facility] Comment on above: Performed By: #### Ashlee SUTTON FE #### [address] 0679608 Lead Handler: Tai Albarran MD #### CP, CDP #### [facility] [address] [place], [place] 2985690 Lead Handler: Anibal Marquis MD Immature granulocytes/100 WBC (Bld) 0 % Normal 0-5 [facility] Comment on above: Performed By: #### Ashlee SUTTON FE #### [address] [id number] Lead Handler: Tai Albarran MD #### CP, CDP #### [facility] [address] [place], [place] 4992490 Lead Handler: Anibal Marquis MD Lymphocytes (Bld) [#/Vol] 1.65 10*3/uL Normal 1.00-4.80 [facility] Comment on above: Performed By: #### Ashlee SUTTON FE #### [address] [id number] Lead Handler: Tai Albarran MD #### CP, CDP #### [facility] [address] [place], [place] 9537690 Lead Handler: Anibal Marquis MD Lymphocytes/100 WBC (Bld) 29 % Normal 13-44 [facility] Comment on above: Performed By: #### LINDSAY MCCOY #### [address] [id number] Lead Handler: Tai Albarran MD #### CP, CDP #### [facility] [address] [place] [address] Lead Handler: nAibal Marquis MD MCH (RBC) [Entitic mass] 29.4 pg Normal 26.0-34.0 [facility] Comment on above: Performed By: #### LINDSAY MCCOY #### [address] [id number] Lead Handler: Tai Albarran MD #### CP, CDP #### [facility] [address] [place] [address] Lead Handler: Anibal Marquis MD MCHC (RBC) [Mass/Vol] 33.2 g/dL Normal 31.0-37.0 [facility] Comment on above: Performed By: #### Ashlee SUTTON FE #### [address] [id number] Lead Handler: Tai Albarran MD #### CP, CDP #### [facility] [address] [place] [address] Lead Handler: Anibal Marquis MD MCV (RBC) [Entitic vol] 88.4 fL Normal 80.0-100.0 [facility] Comment on above: Performed By: #### Ashlee SUTTON FE #### [address] [id number] Lead Handler: Tai Albraran MD #### CP, CDP #### [facility] [address] [place], [place] 6867190 Lead Handler: Anibal Marquis MD Monocytes (Bld) [#/Vol] 0.38 10*3/uL Normal 0.00-1.00 [facility] Comment on above: Performed By: #### Ashlee SUTTON FE #### [address] [id number] Lead Handler: Tai lAbarran MD #### CP, CDP #### [facility] [address] [place], [place] 6981890 Lead Handler: Anibal Marquis MD Monocytes/100 WBC (Bld) 7 % Normal 5-9 [facility] Comment on above: Performed By: #### Ashlee SUTTON FE #### [address] [address] Lead Handler: Tai Albarran MD #### CP, CDP #### [facility] [address] [place], [place] 9157890 Lead Handler: Anibal Marquis MD Neutrophil (Seg) 62 % Normal 39-75 [facility] Comment on above: Performed By: #### Ashlee SUTTON FE #### [address] [address] Lead Handler: Tai Albarran MD #### CP, CDP #### [facility] [address] [place], [place] 3371290 Lead Handler: Anibal Marquis MD Platelet mean volume (Bld) [Entitic vol] 9.4 fL Normal 6.0-12.0 [facility] Comment on above: Performed By: #### F LESLEY FE #### [facility] [address] [place], [place] 1717508 Lead Handler: Tai Albarran MD #### CP, CDP #### [facility] [address] [place], [place] 5092390 Lead Handler: Anibal Marquis MD Platelets (Bld) [#/Vol] 235 10*3/uL Normal 140-450 [facility] Comment on above: Performed By: #### F LESLEY FE #### [address] [id number] Lead Handler: Tai Albarran MD #### CP, CDP #### [facility] [address] [place] [address] Lead Handler: Anibal Marquis MD RBC (Bld) [#/Vol] 3.88 10*6/uL Low 4.50-5.90 [facility] Comment on above: Performed By: #### Ashlee SUTTON FE #### [address] [id number] Lead Handler: Tai Albarran MD #### CP, CDP #### [facility] [address] [place] [address] Lead Handler: Anibal Marquis MD WBC (Bld) [#/Vol] 5.8 10*3/uL Normal 3.5-11.0 [facility] Comment on above: Performed By: #### Ashlee SUTTON FE #### [address] [id number] Lead Handler: Tai Albarran MD #### CP, CDP #### [facility] [address] [place] [address] Lead Handler: Anibal Marquis MD Comp Metabolic Profon 2022 Albumin [Mass/Vol] 4.3 g/dL Normal 3.5-5.2 [facility] Comment on above: Performed By: #### F LESLEY, FE #### [facility] [address] [place] [address] Lead Handler: Tai Albarran MD #### CP, CDP #### [facility] [address] [place] [address] Lead Handler: Anibal Marquis MD Alkaline Phos 179 U/L High 40-129 [facility] Comment on above: Performed By: #### F LESLEY, FE #### [address] [address] Lead Handler: Tai Albarran MD #### CP, CDP #### [facility] [address] [place], [place] [id number] Lead Handler: Anibal Marquis MD ALT [Catalytic activity/Vol] 8 U/L Normal 5-41 [facility] Comment on above: Performed By: #### F LESLEY FE #### [address] [address] Lead Handler: Tai Albarran MD #### CP, CDP #### [facility] [address] [place], [place] [id number] Lead Handler: Anibal Marquis MD Anion gap [Moles/Vol] 11 mmol/L Normal 9-17 [facility] Comment on above: Performed By: #### F LESLEY, FE #### [address] [address] Lead Handler: Tai Albarran MD #### CP, CDP #### [facility] [address] [place], [place] [phone] Lead Handler: Anibal Marquis MD AST [Catalytic activity/Vol] 9 U/L Normal <40 [facility] Comment on above: Performed By: #### F LESLEY, FE #### [facility] [address] [place] [address] Lead Handler: Tai Albarran MD #### CP, CDP #### [facility] [address] [place] [address] Lead Handler: Anibal Marquis MD Bilirubin [Mass/Vol] 0.5 mg/dL Normal 0.3-1.2 [facility] Comment on above: Performed By: #### F LESLEY, FE #### [facility] [address] [place] [address] [phone] Lead Handler: Tai Albarran MD #### CP, CDP #### [facility] [address] [place], [place] [id number] Lead Handler: Anibal Marquis MD BUN/CRE Ratio 14 Normal 9-20 [facility] Comment on above: Performed By: #### F LESLEY, FE #### [address] [address] Lead Handler: Tai Albarran MD #### CP, CDP #### [facility] [address] [place] [address] Lead Handler: Anibal Marquis MD Calcium [Mass/Vol] 9.7 mg/dL Normal 8.6-10.4 [facility] Comment on above: Performed By: #### F LESLEY, FE #### [facility] [address] [place] [address] Lead Handler: Tai Albarran MD #### CP, CDP #### [facility] [address] [place] [address] Lead Handler: Anibal Marquis MD Chloride [Moles/Vol] 96 mmol/L Low 98-107 [facility] Comment on above: Performed By: #### F LESLEY, FE #### [address] [place], [place] [phone] Lead Handler: Tai Albarran MD #### CP, CDP #### [facility] [address] [place], [place] [phone] Lead Handler: Anibal Marquis MD CO2 [Moles/Vol] 26 mmol/L Normal 20-31 [facility] Comment on above: Performed By: #### F LESLEY, FE #### [facility] [address] [place] [address] Lead Handler: Tai Albarran MD #### CP, CDP #### [facility] [address] [place], [place] [phone] Lead Handler: Anibal Marquis MD Creatinine [Mass/Vol] 1.2 mg/dL Normal 0.7-1.2 [facility] Comment on above: Performed By: #### F LESLEY, FE #### [address] [id number] Lead Handler: Tai Albarran MD #### CP, CDP #### [facility] [address] [place], [place] [phone] Lead Handler: Anibal Marquis MD GFR/1.73 sq M.predicted among non-blacks MDRD (S/P/Bld) [Vol rate/Area] mL/min/{1.73_m2} Normal >60 [facility] Comment on above: Result Comment: These [...] affects renal tubular secretion. Performed By: #### F LESLEY, FE #### [address] [phone] Lead Handler: Tai Albarran MD #### CP, CDP #### [facility] [address] [place], [place] [phone] Lead Handler: Anibal Marquis MD Glucose [Mass/Vol] 334 mg/dL High 70-99 [facility] Comment on above: Performed By: #### F LESLEY, FE #### [facility] [address] [place], [place] [phone] Lead Handler: Tai Albarran MD #### CP, CDP #### [facility] [address] [place], [place] [phone] Lead Handler: Anibal Marquis MD Potassium [Moles/Vol] 4.4 mmol/L Normal 3.7-5.3 [facility] Comment on above: Performed By: #### F LESLEY, FE #### [address] [phone] Lead Handler: Tai Albarran MD #### CP, CDP #### [facility] [address] [place], [place] 7370890 Lead Handler: Anibal Marquis MD Protein [Mass/Vol] 7.7 g/dL Normal 6.4-8.3 [facility] Comment on above: Performed By: #### F LESLEY, FE #### [facility] [address] [place] [address] Lead Handler: Tai Albarran MD #### CP, CDP #### [facility] [address] [place], [place] 9147890 Lead Handler: Anibal Marquis MD Sodium [Moles/Vol] 133 mmol/L Low 135-144 [facility] Comment on above: Performed By: #### F LESLEY, FE #### [facility] [address] [place] [address] Lead Handler: Tai Albarran MD #### CP, CDP #### [facility] [address] [place], [place] [phone] Lead Handler: Anibal Marquis MD Urea nitrogen [Mass/Vol] 17 mg/dL Normal 8-23 [facility] Comment on above: Performed By: #### F LESLEY FE #### [address] [place], [place] 3206908 Lead Handler: Tai Albarran MD #### CP, CDP #### [facility] [address] [place], [place] [phone] Lead Handler: Anibal Marquis MD Lipid Profileon 02-13-2023 Cholesterol [Mass/Vol] 136 mg/dL Normal 0-199 [facility] Comment on above: Result Comment: Cholesterol Guidelines: <200 Desirable 200-240 Borderline >240 Undesirable Performed By: #### F LINDSAY SUTTON #### [address] [phone] Lead Handler: Tai Albarran MD #### CP, CDP #### [facility] [address] [place], [place] [phone] Lead Handler: Anibal Marquis MD Cholesterol in HDL [Mass/Vol] 36 mg/dL Low >40 [facility] Comment on above: Result Comment: HDL Guidelines: <40 Undesirable 40-59 Borderline >59 Desirable Performed By: #### F LESLEY FE #### [address] [phone] Lead Handler: Tai Albarran MD #### CP, CDP #### [facility] [address] [place], [place] 5082190 Lead Handler: Anibal Marquis MD Cholesterol in LDL [Mass/Vol] 51 mg/dL Normal 0-100 [facility] Comment on above: Result Comment: LDL Guidelines: <100 Desirable 100-129 Near to/above Desirable 130-159 Borderline >159 Undesirable Direct (measured) LDL and calculated LDL are not interchangeable tests. Performed By: #### F LESLEY FE #### [facility] [address] [place] [address] Lead Handler: Tai Albarran MD #### CP, CDP #### [facility] [address] [place] [address] Lead Handler: Anibal Marquis MD Cholesterol in VLDL [Mass/Vol] 49 mg/dL Normal [facility] Comment on above: Performed By: #### F LESLEY FE #### [address] [address] Lead Handler: Tai Albarran MD #### CP, CDP #### [facility] [address] [place], [place] 7423290 Lead Handler: Anibal Marquis MD Cholesterol.total/Choles terol in HDL [Mass ratio] 4.0 {ratio} Normal [facility] Comment on above: Performed By: #### F LESLEY FE #### [facility] [address] [place] [address] Lead Handler: Tai Albarran MD #### CP, CDP #### [facility] [address] [place] [address] Lead Handler: Anibal Marquis MD Triglyceride [Mass/Vol] 245 mg/dL High 0-149 [facility] Comment on above: Result Comment: Triglyceride Guidelines: <150 Desirable 150-199 Borderline 200-499 High >499 Very high Based on AHA Guidelines for fasting triglyceride, December 2011. Performed By: #### F LESLEY FE #### [address] [place] [address] Lead Handler: Tai Albarran MD #### CP, CDP #### [facility] [address] [place], [place] 8696090 Lead Handler: Anibal Marquis MD Magnesiumon 02-13-2023 Magnesium [Mass/Vol] 2.1 mg/dL Normal 1.6-2.6 [facility] Comment on above: Performed By: #### LINDSAY MCCOY #### [facility] [address] [place] [address] Lead Handler: Tai Albarran MD #### CP, CDP #### [facility] [address] [place] [address] Lead Handler: Anibal Marquis MD Osmolality, Urineon 02-14-20 23 Osmolality - Urine 634 mOsm/kg Normal 80-1300 [facility] Comment on above: Performed By: #### U OSMO ####[facility] [place] [address] Lab Director: Tai Albarran MD#### UAMIC ####[facility] [id number] [place], [place] 2414890 Lab Director: Anibal Marquis MD PSA, Screeningon 02-13-2023 Prostatic Spec. Ag 0.40 ng/mL Normal <4.1 [facility] Comment on above: Result Comment: The Tha ECLIA assay is used. Results obtained with different assay methods cannot be used interchangeably. Performed By: #### LINDSAY MCCOY #### [facility] [address] [place] [address] Lead Handler: Tai Albarran MD #### CP, CDP #### [facility] [address] [place], [place] [phone] Lead Handler: Anibal Marquis MD TSH w/reflex to FT4on 2022 Thyroid Stim. Horm. 1.66 uIU/mL Normal 0.30-5.00 [facility] Comment on above: Performed By: #### LINDSAY MCCOY #### [facility] [address] [place] [address] Lead Handler: Tai Albarran MD #### CP, CDP #### [facility] [address] [place] [address] Lead Handler: Anibal Marquis MD Urinalysis w/ Microon 2022 ----- Normal [facility] Comment on above: Performed By: #### U OSMO ####[address] [place] [address] Lab Director: Tai Albarran MD#### UAMIC ####[facility] [id number] [place] [address] Lab Director: Anibal Marquis MD Bilirubin, SemiQt,Ur Negative Normal NEG [facility] Comment on above: Performed By: #### U OSMO ####[address] [place] [address] Lab Director: Tai Albarran MD#### UAMIC ####[facility] [id number] [place] [address] Lab Director: Anibal Marquis MD Blood, Urine TRACE Abnormal NEG [facility] Comment on above: Performed By: #### U OSMO ####[address] [place] [address] Lab Director: Tai Albarran MD#### UAMIC ####[facility] [id number] [place] [address] Lab Director: Anibal Marquis MD Clarity (U) Clear Normal CLEAR [facility] Comment on above: Performed By: #### U OSMO ####[address] [place] [address] Lab Director: Tai Albarran MD#### UAMIC ####[facility] [id number] [place] [address] Lab Director: Anibal Marquis MD Color (U) Yellow Normal YEL [facility] Comment on above: Performed By: #### U OSMO ####[address] [place] [address] Lab Director: Tai Albarran MD#### UAMIC ####[facility] [id number] [facility] [place] [address] Lab Director: Anibal Marquis MD Comment Normal [facility] Comment on above: Performed By: #### U OSMO ####[address] [place] [address] Lab Director: Tai Albarran MD#### UAMIC ####[facility] [id number] [place] [address] Lab Director: Anibal Marquis MD Epithelial cells LM Ql (Urine sed) 0 TO 2 Normal [facility] Comment on above: Performed By: #### U OSMO ####[address] [address] Lab Director: Tai Albarran MD#### UAMIC ####[facility] [id number] [facility] [place] [address] Lab Director: Anibal Marquis MD Glucose Ql (U) 1000 mg/dL Abnormal NEG [facility] Comment on above: Performed By: #### U OSMO ####[address] [place] [address] Lab Director: Tai Albarran MD#### UAMIC ####[facility] [id number] [facility] [place] [address] Lab Director: Anibal Marquis MD Ketones Ql (U) Negative Normal NEG [facility] Comment on above: Performed By: #### U OSMO ####[address] [place] [address] Lab Director: Tai Albarran MD#### UAMIC ####[facility] [id number] [place] [address] lab Director: Anibal Marquis MD Leukocyte esterase Test strip Ql (U) Negative Normal NEG [facility] Comment on above: Performed By: #### U OSMO ####[address] [address] Lab Director: Tai Albarran MD#### UAMIC ####[facility] [id number] [place] [address] Lab Director: Anibal Marquis MD Nitrite,Ur Negative Normal NEG [facility] Comment on above: Performed By: #### U OSMO ####[address] [address] Lab Director: Tai Albarran MD#### UAMIC ####[facility] [id number] [place], [place] [phone] Director: Anibal Marquis MD PH,Ur 6.0 Normal 5.0-8.0 [facility] Comment on above: Performed By: #### U OSMO ####[address] [address] Lab Director: Tai Albarran MD#### UAMIC ####[facility] [id number] [place] [address] Lab Director: Anibal Marquis MD Protein Ql (U) Negative Normal NEG [facility] Comment on above: Performed By: #### U OSMO ####[address] [address] Lab Director: Tai Albarran MD#### UAMIC ####[facility] [id number] [place], [place] [phone] Director: Anibal Marquis MD Spec. [place],Ur 1.020 Normal 1.005-1.030 [facility] Comment on above: Performed By: #### U OSMO ####[facility] [place], [place] [phone] Director: Tai Albarran MD#### UAMIC ####[facility] [address] [place], [place] [phone] Director: Anibal Marquis MD Urine RBC's 0 TO 2 Normal 0-2 [facility] Comment on above: Performed By: #### U OSMO ####[address] [phone] Director: Tai Albarran MD#### UAMIC ####[facility] Bqm[address]21 [place] [address] Lab Director: Anibal Marquis MD Urine WBC's NONE SEEN Normal 0 [facility] Comment on above: Performed By: #### U OSMO ####[address] [phone] Director: Tai Albarran MD#### UAMIC ####[facility] [id number] [place] [address] Lab Director: Anibal Marquis MD Urobilinogen,Ur Normal Normal 0.0-1.0 [facility] Comment on above: Performed By: #### U OSMO ####[address] [phone] Director: Tai Albarran MD#### UAMIC ####[facility] [id number] [place] [address] Lab Director: Anibal Marquis MD Basic Metabolic Profon 01-17 Anion gap [Moles/Vol] 13 mmol/L Normal 9-17 [facility] Comment on above: Performed By: #### F LESLEY FE #### [facility] [address] [place] [address] Lead Handler: Tai Albarran MD #### CP, CDP #### [facility] [address] [place], [place] [phone] Lead Handler: Anibal Marquis MD BUN/CRE Ratio 9 Normal 9-20 [facility] Comment on above: Performed By: #### F LESLEY, FE #### [facility] [address] [place], [place] 7751608 Lead Handler: Tai Albarran MD #### CP, CDP #### [facility] [address] [place], [place] 0587190 Lead Handler: Anibal Marquis MD Calcium [Mass/Vol] 9.0 mg/dL Normal 8.6-10.4 [facility] Comment on above: Performed By: #### F LESLEY, FE #### [address] [id number] Lead Handler: Tai Albarran MD #### CP, CDP #### [facility] [address] [place], [place] 8556090 Lead Handler: Anibal Marquis MD Chloride [Moles/Vol] 96 mmol/L Low 98-107 [facility] Comment on above: Performed By: #### F LESLEY, FE #### [facility] [address] [place] [address] [phone] Lead Handler: Tai Albarran MD #### CP, CDP #### [facility] [address] [place], [place] [phone] Lead Handler: Anibal Marquis MD CO2 [Moles/Vol] 24 mmol/L Normal 20-31 [facility] Comment on above: Performed By: #### F LESLEY, FE #### [facility] [address] [place] [address] Lead Handler: Tai Albarran MD #### CP, CDP #### [facility] [address] [place], [place] [phone] Lead Handler: Anibal Marquis MD Creatinine [Mass/Vol] 1.7 mg/dL High 0.7-1.2 [facility] Comment on above: Performed By: #### F LINDSAY SUTTON #### [facility] [address] [place] [address] Lead Handler: Tai Albarran MD #### CP, CDP #### [facility] [address] [place], [place] [phone] Lead Handler: Anibal Marquis MD GFR/1.73 sq M.predicted among non-blacks MDRD (S/P/Bld) [Vol rate/Area] 45 mL/min/{1.73_m2} Low >60 [facility] Comment on above: Result Comment: These results [...] affects renal tubular secretion. Performed By: #### F LINDSAY SUTTON #### [address] [address] Lead Handler: Tai Albarran MD #### CP, CDP #### [facility] [address] [place] [address] Lead Handler: Anibal Marquis MD Glucose [Mass/Vol] 213 mg/dL High 70-99 [facility] Comment on above: Performed By: #### F LINDSAY SUTTON #### [address] [address] Lead Handler: Tai Albarran MD #### CP, CDP #### [facility] [address] [place], [place] [phone] Lead Handler: Anibal Marquis MD Potassium [Moles/Vol] 4.3 mmol/L Normal 3.7-5.3 [facility] Comment on above: Performed By: #### LINDSAY MCCOY #### [address] [phone] Lead Handler: Tai Albarran MD #### CP, CDP #### [facility] [address] [place] [address] Lead Handler: Anibal Marquis MD Sodium [Moles/Vol] 133 mmol/L Low 135-144 [facility] Comment on above: Performed By: #### LINDSAY MCCOY #### [address] [phone] Lead Handler: Tai Albarran MD #### CP, CDP #### [facility] [address] [place] [address] ( Lead Handler: Anibal Marquis MD Urea nitrogen [Mass/Vol] 15 mg/dL Normal 8-23 [facility] Comment on above: Performed By: #### LINDSAY MCCOY #### [address] [phone] Lead Handler: Tai Albarran MD #### CP, CDP #### [facility] [address] [place] [phone] Lead Handler: Anibal Marquis MD CBC with Diffon 01-17-2023 Abs. Basophil 0.05 k/uL Normal 0.00-0.20 [facility] Comment on above: Performed By: #### LINDSAY MCCOY #### [address] 1947308 Lead Handler: Tai Albarran MD #### CP, CDP #### [facility] [address] [place] [address] Lead Handler: Anibal Marquis MD Abs.Imm.Granulocyte 0.01 k/uL Normal 0.00-0.30 [facility] Comment on above: Performed By: #### Ashlee SUTTON FE #### [address] [place], [place] [phone] Lead Handler: Tai Albarran MD #### CP, CDP #### [facility] [address] [place], [place] [phone] Lead Handler: Anibal Marquis MD Abs.Neutrophil (Seg) 4.64 k/uL Normal 2.1-6.5 [facility] Comment on above: Performed By: #### F LESLEY FE #### [address] [phone] Lead Handler: Tai Albarran MD #### CP, CDP #### [facility] [address] [place] [address] Lead Handler: Anibal Marquis MD Basophils/100 WBC (Bld) 1 % Normal 0-2 [facility] Comment on above: Performed By: #### Ashlee SUTTON FE #### [address] [phone] Lead Handler: Tai Albarran MD #### CP, CDP #### [facility] [address] [place] [address] Lead Handler: Anibal Marquis MD Eosinophils (Bld) [#/Vol] 0.22 10*3/uL Normal 0.00-0.40 [facility] Comment on above: Performed By: #### Ashlee SUTTON FE #### [address] [phone] Lead Handler: Tai Albarran MD #### CP, CDP #### [facility] [address] [place], [place] [phone] Lead Handler: Anibal Marquis MD Eosinophils/100 WBC (Bld) 3 % Normal 0-5 [facility] Comment on above: Performed By: #### F LESLEY, FE #### [facility] [address] [place] [address] Lead Handler: Tai Albarran MD #### CP, CDP #### [facility] [address] [place], [place] [phone] Lead Handler: Anibal Marquis MD Erythrocyte distribution width (RBC) [Ratio] 13.3 % Normal 12.1-15.2 [facility] Comment on above: Performed By: #### F LESLEY, FE #### [facility] [address] [place], [place] [phone] Lead Handler: Tai Albarran MD #### CP, CDP #### [facility] [address] [place], [place] [phone] Lead Handler: Anibal Marquis MD Hematocrit (Bld) [Volume fraction] 28.9 % Low 41.0-53.0 [facility] Comment on above: Performed By: #### F LESLEY, FE #### [facility] [address] [place], [place] [phone] Lead Handler: Tai Albarran MD #### CP, CDP #### [facility] [address] [place], [place] [phone] Lead Handler: Anibal Marquis MD Hemoglobin (Bld) [Mass/Vol] 9.5 g/dL Low 13.5-17.5 [facility] Comment on above: Performed By: #### F LESLEY, FE #### [facility] [address] [place], [place] [phone] Lead Handler: Tai Albarran MD #### CP, CDP #### [facility] [address] [place], [place] 5208390 Lead Handler: Anibal Marquis MD Immature granulocytes/100 WBC (Bld) 0 % Normal 0-5 [facility] Comment on above: Performed By: #### F LESLEY, FE #### [facility] [address] [place], [place] 9572408 Lead Handler: Tai Albarran MD #### CP, CDP #### [facility] [address] [place], [place] [phone] Lead Handler: Anibal Marquis MD Lymphocytes (Bld) [#/Vol] 2.45 10*3/uL Normal 1.00-4.80 [facility] Comment on above: Performed By: #### F LESLEY, FE #### [facility] [address] [place], [place] 7869808 Lead Handler: Tai Albarran MD #### CP, CDP #### [facility] [address] [place] [address] Lead Handler: Anibal Marquis MD Lymphocytes/100 WBC (Bld) 31 % Normal 13-44 [facility] Comment on above: Performed By: #### F LESLEY, FE #### [facility] [address] [place], [place] 7041008 Lead Handler: Tai Albarran MD #### CP, CDP #### [facility] [address] [place], [place] [phone] Lead Handler: Anibal Marquis MD MCH (RBC) [Entitic mass] 29.6 pg Normal 26.0-34.0 [facility] Comment on above: Performed By: #### F LESLEY, FE #### [facility] [address] [place], [place] [phone] Lead Handler: Tai Albarran MD #### CP, CDP #### [facility] [address] [place], [place] [phone] Lead Handler: Anibal Marquis MD MCHC (RBC) [Mass/Vol] 32.9 g/dL Normal 31.0-37.0 [facility] Comment on above: Performed By: #### F LESLEY, FE #### [facility] [address] [place] [address] Lead Handler: Tai Albarran MD #### CP, CDP #### [facility] [address] [place] [address] Lead Handler: Anibal Marquis MD MCV (RBC) [Entitic vol] 90.0 fL Normal 80.0-100.0 [facility] Comment on above: Performed By: #### F LESLEY, FE #### [address] [address] Lead Handler: Tai Albarran MD #### CP, CDP #### [facility] [address] [place], [place] [phone] Lead Handler: Anibal Marquis MD Monocytes (Bld) [#/Vol] 0.53 10*3/uL Normal 0.00-1.00 [facility] Comment on above: Performed By: #### F LESLEY, FE #### [address] [address] Lead Handler: Tai Albarran MD #### CP, CDP #### [facility] [address] [place], [place] [phone] Lead Handler: Anibal Marquis MD Monocytes/100 WBC (Bld) 7 % Normal 5-9 [facility] Comment on above: Performed By: #### F LESLEY, FE #### [address] [address] Lead Handler: Tai Albarran MD #### CP, CDP #### [facility] [address] [place], [place] [phone] Lead Handler: Anibal Marquis MD Neutrophil (Seg) 59 % Normal 39-75 [facility] Comment on above: Performed By: #### F LESLEY, FE #### [facility] [address] [place] [address] Lead Handler: Tai Albarran MD #### CP, CDP #### [facility] [address] [place], [place] [phone] Lead Handler: Anibal Marquis MD Platelet mean volume (Bld) [Entitic vol] 8.9 fL Normal 6.0-12.0 [facility] Comment on above: Performed By: #### F LESLEY, FE #### [facility] [address] [place] [address] Lead Handler: Tai Albarran MD #### CP, CDP #### [facility] [address] [place], [place] [phone] Lead Handler: Anibal Marquis MD Platelets (Bld) [#/Vol] 222 10*3/uL Normal 140-450 [facility] Comment on above: Performed By: #### F LESLEY, FE #### [facility] [address] [place] [address] Lead Handler: Tai Albarran MD #### CP, CDP #### [facility] [address] [place], [place] [id number] Lead Handler: Anibal Marquis MD RBC (Bld) [#/Vol] 3.21 10*6/uL Low 4.50-5.90 [facility] Comment on above: Performed By: #### F LESLEY, FE #### [facility] [address] [place] [address] Lead Handler: Tai Albarran MD #### CP, CDP #### [facility] [address] [place], [place] [id number] Lead Handler: Anibal Marquis MD WBC (Bld) [#/Vol] 7.9 10*3/uL Normal 3.5-11.0 [facility] Comment on above: Performed By: #### F LESLEY, FE #### [facility] [address] [place] [address] Lead Handler: Tai Albarran MD #### CP, BEATA #### [facility] [address] [place] [address] Lead Handler: Anibal Marquis MD MRI BRAIN W WO [...] Mona Rodriguez DO 01/17/23 Final result Normal [facility] Nursing Note - Woundon 01-09 Nursing Note - Wound [id number] 1 [id number] 1#2.00TIFF [facility] Progress Note - Woundon 12-09 Progress Note - Wound [id number] 31 [id number] 1#2.00TIFF [facility] Consent for Treatmenton 12-09 Consent for Treatment [id number] 31 [id number] #1.00TIFF [facility] Nursing Assessment - Woundon 12-26-2022 Nursing Assessment - Wound [id number] 9#1.00TIFF [facility] Physician Orderon 12-26-2022 Physician Order [id number] 3#1.00TIFF [facility] CBC with Diffon 12-20-2022 Abs. Basophil 0.02 k/uL Normal 0.00-0.20 [facility] Comment on above: Performed By: #### U AX #### [facility] [address] [place] [address] Lead Handler: Anibal Marquis MD Abs.Imm.Granulocyte 0.01 k/uL Normal 0.00-0.30 [facility] Comment on above: Performed By: #### U AX #### [facility] [address] [place] [address] Lead Handler: Anibal Marquis MD Abs.Neutrophil (Seg) 5.01 k/uL Normal 2.1-6.5 [facility] Comment on above: Performed By: #### U AX #### [facility] [address] [place] [address] Lead Handler: Anibal Marquis MD Basophils/100 WBC (Bld) 0 % Normal 0-2 [facility] Comment on above: Performed By: #### U AX #### [facility] [address] [place] [address] Lead Handler: Anibal Marquis MD Eosinophils (Bld) [#/Vol] 0.19 10*3/uL Normal 0.00-0.40 [facility] Comment on above: Performed By: #### U AX #### [facility] [address] [place] [address] Lead Handler: Anibal Marquis MD Eosinophils/100 WBC (Bld) 3 % Normal 0-5 [facility] Comment on above: Performed By: #### U AX #### [facility] [address] [place] [address] Lead Handler: Anibal Marquis MD Erythrocyte distribution width (RBC) [Ratio] 13.5 % Normal 12.1-15.2 [facility] Comment on above: Performed By: #### U AX #### [facility] [address] [place] [address] Lead Handler: Anibal Marquis MD Hematocrit (Bld) [Volume fraction] 31.7 % Low 41.0-53.0 [facility] Comment on above: Performed By: #### U AX #### [facility] [address] [place], [place] 0856[address] Lead Handler: Anibal Marquis MD Hemoglobin (Bld) [Mass/Vol] 10.6 g/dL Low 13.5-17.5 [facility] Comment on above: Performed By: #### U AX #### [facility] [address] [place] [address] Lead Handler: Anibal Marquis MD Immature granulocytes/100 WBC (Bld) 0 % Normal 0-5 [facility] Comment on above: Performed By: #### U AX #### [facility] [address] [place] [address] Lead Handler: Anibal Marquis MD Lymphocytes (Bld) [#/Vol] 1.42 10*3/uL Normal 1.00-4.80 [facility] Comment on above: Performed By: #### U AX #### [facility] [address] [place] [address] Lead Handler: Anibal Marquis MD Lymphocytes/100 WBC (Bld) 20 % Normal 13-44 [facility] Comment on above: Performed By: #### U AX #### [facility] [address] [place] [address] Lead Handler: Anibal Marquis MD MCH (RBC) [Entitic mass] 29.9 pg Normal 26.0-34.0 [facility] Comment on above: Performed By: #### U AX #### [facility] [address] [place] [address] Lead Handler: Anibal Marquis MD MCHC (RBC) [Mass/Vol] 33.4 g/dL Normal 31.0-37.0 [facility] Comment on above: Performed By: #### U AX #### [facility] [address] [place] [address] Lead Handler: Anibal Marquis MD MCV (RBC) [Entitic vol] 89.5 fL Normal 80.0-100.0 [facility] Comment on above: Performed By: #### U AX #### [facility] [address] [place] [address] Lead Handler: Anibal Marquis MD Monocytes (Bld) [#/Vol] 0.47 10*3/uL Normal 0.00-1.00 [facility] Comment on above: Performed By: #### U AX #### [facility] [address] [place] [address] Lead Handler: Anibal Marquis MD Monocytes/100 WBC (Bld) 7 % Normal 5-9 [facility] Comment on above: Performed By: #### U AX #### [facility] [address] [place] [address] Lead Handler: Anibal Marquis MD Neutrophil (Seg) 70 % Normal 39-75 [facility] Comment on above: Performed By: #### U AX #### [facility] [address] [place] [address] Lead Handler: Anibal Marquis MD Platelet mean volume (Bld) [Entitic vol] 9.2 fL Normal 6.0-12.0 [facility] Comment on above: Performed By: #### U AX #### [facility] [address] [place] [address] Lead Handler: Anibal Marquis MD Platelets (Bld) [#/Vol] 266 10*3/uL Normal 140-450 [facility] Comment on above: Performed By: #### U AX #### [facility] [address] [place] [address] Lead Handler: Anibal Marquis MD RBC (Bld) [#/Vol] 3.54 10*6/uL Low 4.50-5.90 [facility] Comment on above: Performed By: #### U AX #### [facility] [address] [place], [place] [id number] Lead Handler: Anibal Marquis MD WBC (Bld) [#/Vol] 7.1 10*3/uL Normal 3.5-11.0 [facility] Comment on above: Performed By: #### U AX #### [facility] [address] [place], [place] [id number] Lead Handler: Anibal Marquis MD Comp Metabolic Profon 2022 Albumin [Mass/Vol] 3.7 g/dL Normal 3.5-5.2 [facility] Comment on above: Performed By: #### U AX #### [facility] [address] [place], [place] [address]38[address] Lead Handler: Anibal Marquis MD Alkaline Phos 171 U/L High 40-129 [facility] Comment on above: Performed By: #### U AX #### [facility] [address] [place], [place] [id number] Lead Handler: Anibal Marquis MD ALT [Catalytic activity/Vol] 12 U/L Normal 5-41 [facility] Comment on above: Performed By: #### U AX #### [facility] [address] [place], [place] 0[address]12[address] Lead Handler: Anibal Marquis MD Anion gap [Moles/Vol] 12 mmol/L Normal 9-17 [facility] Comment on above: Performed By: #### U AX #### [facility] [address] [place], [place] 38750[address] Lead Handler: Anibal Marquis MD AST [Catalytic activity/Vol] 14 U/L Normal <40 [facility] Comment on above: Performed By: #### U AX #### [facility] [address] [place], [place] 59[address] Lead Handler: Anibal Marquis MD Bilirubin [Mass/Vol] 0.7 mg/dL Normal 0.3-1.2 [facility] Comment on above: Performed By: #### U AX #### [facility] [address] [place], [place] 8896690 Lead Handler: Anibal Marquis MD BUN/CRE Ratio 16 Normal 9-20 [facility] Comment on above: Performed By: #### U AX #### [facility] [address] [place], [place] 5027[address] Lead Handler: Anibal Marquis MD Calcium [Mass/Vol] 9.8 mg/dL Normal 8.6-10.4 [facility] Comment on above: Performed By: #### U AX #### [facility] [address] [place], [place] [address] Lead Handler: Anibal Marquis MD Chloride [Moles/Vol] 94 mmol/L Low 98-107 [facility] Comment on above: Performed By: #### U AX #### [facility] [address] [place], [place] 0546890 Lead Handler: Anibal Marquis MD CO2 [Moles/Vol] 25 mmol/L Normal 20-31 [facility] Comment on above: Performed By: #### U AX #### [facility] [address] [place], [place] 05845[address] Lead Handler: Anibal Marquis MD Creatinine [Mass/Vol] 1.5 mg/dL High 0.7-1.2 [facility] Comment on above: Performed By: #### U AX #### [facility] [address] [place], [place] 00513[address] Lead Handler: Anibal Marquis MD GFR/1.73 sq M.predicted among non-blacks MDRD (S/P/Bld) [Vol rate/Area] 53 mL/min/{1.73_m2} Low >60 [facility] Comment on above: Result Comment: These results [...] affects renal tubular secretion. Performed By: #### U AX #### [facility] [address] [place], [place] 4375[address] Lead Handler: Anibal Marquis MD Glucose [Mass/Vol] 334 mg/dL High 70-99 [facility] Comment on above: Performed By: #### U AX #### [facility] [address] [place], [place] [address] Lead Handler: Anibal Marquis MD Potassium [Moles/Vol] 4.3 mmol/L Normal 3.7-5.3 [facility] Comment on above: Performed By: #### U AX #### [facility] [address] [place], [place] [address]479890 Lead Handler: Anibal Marquis MD Protein [Mass/Vol] 7.7 g/dL Normal 6.4-8.3 [facility] Comment on above: Performed By: #### U AX #### [facility] [address] [place], [place] [address]197[address] Lead Handler: Anibal Marquis MD Sodium [Moles/Vol] 131 mmol/L Low 135-144 [facility] Comment on above: Performed By: #### U AX #### [facility] [address] [place], [place] 2[address]690 Lead Handler: Anibal Marquis MD Urea nitrogen [Mass/Vol] 24 mg/dL High 8-23 [facility] Comment on above: Performed By: #### U AX #### [facility] [address] [place] [address] Lead Handler: Anibal Marquis MD Sedimentation Rateon 023 Sedimentation Rate 70 mm/Hr High 0-20 [facility] Comment on above: Performed By: #### U AX #### [facility] [address] [place] [address] Lead Handler: Anibal Marquis MD Physician Orderon 12-13-2022 Physician Order [id number] 2#1.00CD:127 [facility] Procedure - Woundon 12-14-19 Procedure - Wound [id number] 9#1.00CD:127 [facility] Consent for Treatmenton Consent for Treatment [id number] 31 [id number] #1.00CD:127 [facility] Multi-Wound Charton 12-12-19 Multi-Wound Chart [id number] 2#1.00CD:127 [facility] Nursing Assessment - Woundon 12-11-2022 Nursing Assessment - Wound [id number] 9#1.00CD:127 [facility] Nursing Note - Woundon 12-11 Nursing Note - Wound [id number] 1 [id number] 4#1.00CD:127 [facility] Consent for Treatmenton 11-10 Consent for Treatment [id number] 30 [id number] #1.00CD:127 [facility] Multi-Wound Charton 12-06-19 Multi-Wound Chart [id number] 1#1.00CD:127 [facility] Nursing Assessment - Woundon 12-05-2022 Nursing Assessment - Wound [id number] 4#1.00CD:127 [facility] Nursing Note - Woundon 12-05 Nursing Note - Wound [id number] 0 [id number] 4#1.00CD:127 [facility] Physician Orderon 12-05-2022 Physician Order [id number] 3#1.00CD:127 [facility] Procedure - Woundon 12-06-19 Procedure - Wound [id number] 1#1.00CD:127 [facility] Progress Note - Woundon 11-10 Progress Note - Wound [id number] 30 [id number] 6#1.00CD:127 [facility] HBOon 11-29-2022 HBO [id number] 8#3.00CD:127 [facility] Physician Orderon 11-29-2022 Physician Order [id number] 7#1.00CD:127 [facility] Consent for Treatmenton 11-10 Consent for Treatment [id number] 30 [id number] #1.00CD:127 [facility] Multi-Wound Charton 11-29-19 Multi-Wound Chart [id number] 4#1.00CD:127 [facility] Nursing Assessment - Woundon 11-28-2022 Nursing Assessment - Wound [id number] 5#1.00CD:127 [facility] Nursing Note - Woundon 11-28 Nursing Note - Wound [id number] 0 [id number] 4#1.00CD:127 Normal [facility] Physician Orderon 11-28-2022 Physician Order [id number] 8#1.00CD:127 Normal [facility] Procedure - Woundon 11-29-19 Procedure - Wound [id number] 5#1.00CD:127 Normal [facility] Progress Note - Woundon 11-10 Progress Note - Wound [id number] 30 [id number] 5#1.00CD:127 Normal [facility] CHEMISTRYOrdered By: Lab ROP User on 11-26-2022 Glucose [Mass/Vol] 115 mg/dL High 55 - 99 mg/dL [facility] POC Subsection Comment on above: Result Comment: Oliva hanane Meter POC Username Shona Clark Invalid Interpretation Code [facility] POC Subsection Sodium [Moles/Vol] 692225349992 mmol/L Invalid Interpretation Code [facility] POC Subsection Sodium [Moles/Vol] 063547389 mmol/L Invalid Interpretation Code [facility] POC Subsection Glucose [Mass/Vol] 152 mg/dL High 55 - 99 mg/dL [facility] POC Subsection Comment on above: Result Comment: Oliva hanane Meter POC Username Shona Clark Invalid Interpretation Code [facility] POC Subsection Sodium [Moles/Vol] 769134143663 mmol/L Invalid Interpretation Code [facility] POC Subsection Sodium [Moles/Vol] 678919074 mmol/L Invalid Interpretation Code [facility] POC Subsection Capillary Glucose POCon 11-09 Glucose [Mass/Vol] 115 mg/dL High 55-99 [facility] Comment on above: Result Comment: Oliva hanane Meter Performed By: #### 2 [id number] ####[facility] [address] [place] [address] Glucose [Mass/Vol] 152 mg/dL High 55-99 [facility] Comment on above: Result Comment: Oliva hanane Meter Performed By: #### 2 [id number] #### [facility] [address] [place] [address] Nursing Note - Woundon 11-26 Nursing Note - Wound [id number] 0 [id number] 1#2.00CD:127 [facility] CHEMISTRYOrdered By: Lab ROP User on 11-21-2022 Glucose [Mass/Vol] 307 mg/dL High 55 - 99 mg/dL [facility] POC Subsection Comment on above: Result Comment: Oliva hanane Meter POC Username Shona Clark Invalid Interpretation Code [facility] POC Subsection Sodium [Moles/Vol] 220066447586 mmol/L Invalid Interpretation Code [facility] POC Subsection Sodium [Moles/Vol] 472897646 mmol/L Invalid Interpretation Code [facility] POC Subsection Capillary Glucose POCon 11-09 Glucose [Mass/Vol] 307 mg/dL High 55-99 [facility] Comment on above: Result Comment: Oliva hanane Meter Performed By: #### 2 [id number] #### [facility] [address] [place] [address] Consent for Treatmenton 11-09 Consent for Treatment [id number] 30 [id number] #1.00CD:127 [facility] Correspondence - Woundon Correspondence - Wound [id number] 309 [id number] 8#1.00CD:127 [facility] Multi-Wound Charton 11-22-19 23 Multi-Wound Chart [id number] 7#1.00CD:127 [facility] Nursing Assessment - Woundon 11-21-2022 Nursing Assessment - Wound [id number] 0#1.00CD:127 [facility] Nursing Note - Woundon 11-21 Nursing Note - Wound [id number] 0 [id number] 9#1.00CD:127 [facility] Nursing Note - Wound [id number] 0 [id number] 6#1.00CD:127 Normal [facility] Physician Orderon 11-21-2022 Physician Order [id number] 2#1.00CD:127 Normal [facility] Physician Order [id number] 5#1.00CD:127 Normal [facility] Physician Order [id number] 0#1.00CD:127 Normal [facility] Procedure - Woundon 11-22-19 Procedure - Wound [id number] 9#1.00CD:127 Normal [facility] Progress Note - Woundon 11-09 Progress Note - Wound [id number] 30 [id number] 2#1.00CD:127 Normal [facility] Capillary Glucose POCon 11-09 Glucose [Mass/Vol] 229 mg/dL [address] Comment on above: Result Comment: Oliva hanane Meter Performed By: #### 2 [id number] ####[facility] [address] [place] [address] Glucose [Mass/Vol] 229 mg/dL [address] Comment on above: Result Comment: Oliva hanane Meter Performed By: #### 2 [id number] #### [facility] [address] [place] [address] HBOon 11-19-2022 HBO [id number] 1#1.00CD:127 Normal [facility] Nursing Note - Woundon 11-19 Nursing Note - Wound [id number] 0 [id number] 5#1.00CD:127 Normal [facility] Nursing Note - Woundon 11-16 Nursing Note - Wound [id number] 0 [id number] 8#2.00CD:127 Normal [facility] Physician Orderon 11-16-2022 Physician Order [id number] 5#1.00CD:127 Normal [facility] Capillary Glucose POCon Glucose [Mass/Vol] 395 mg/dL High 55-99 [facility] Comment on above: Result Comment: Oliva hanane Meter Performed By: #### 2 [id number] #### [facility] [address] [place] [address] HBOon 11-15-2022 HBO [id number] 3#1.00CD:127 Normal [facility] Capillary Glucose POCon Glucose [Mass/Vol] 253 mg/dL High 55-99 [facility] Comment on above: Performed By: #### 2 [id number] #### [facility] [address] [place] [address] Glucose [Mass/Vol] 198 mg/dL High 55-99 [facility] Comment on above: Performed By: #### 2 [id number] #### [facility] [address] [place] [address] Glucose [Mass/Vol] 128 mg/dL High 55-99 [facility] Comment on above: Result Comment: Oliva hanane Meter Performed By: #### 2 [id number] #### [facility] [address] [place] [address] Glucose [Mass/Vol] 124 mg/dL High 55-99 [facility] Comment on above: Result Comment: Oliva hanane Meter Performed By: #### 2 [id number] #### [facility] [address] [place] [address] Nursing Note - Woundon 11-13 Nursing Note - Wound [id number] 0 [id number] 8#1.00CD:127 Normal [facility] Physician Orderon 11-13-2022 Physician Order [id number] 9#1.00CD:127 Normal [facility] Capillary Glucose POCon Glucose [Mass/Vol] 141 mg/dL [address] Comment on above: Performed By: #### 2 [id number] ####[facility] [address] [place] [address] Glucose [Mass/Vol] 233 mg/dL [address] Comment on above: Performed By: #### 2 [id number] ####[facility] [address] [place] [address] HBOon 11-09-2022 HBO [id number] 4#1.00CD:127 Normal [facility] HBO [id number] 5#1.00CD:127 Normal [facility] Nursing Note - Woundon 11-09 Nursing Note - Wound [id number] 0 [id number] 7#1.00CD:127 Normal [facility] Capillary Glucose POCon 10-11 Glucose [Mass/Vol] 192 mg/dL [address] Comment on above: Performed By: #### 2 [id number] #### [facility] [address] [place] [address] Glucose [Mass/Vol] 153 mg/dL [address] Comment on above: Result Comment: Oliva hanane Meter Performed By: #### 2 [id number] ####[facility] [address] [place] [address] Nursing Note - Woundon 11-08 Nursing Note - Wound [id number] 0 [id number] 4#1.00CD:127 Normal [facility] Nursing Note - Wound [id number] 0 [id number] 0#2.00CD:127 Normal [facility] Physician Orderon 11-08-2022 Physician Order [id number] 1#1.00CD:127 Normal [facility] Physician Order [id number] 5#1.00CD:127 Normal [facility] Physician Order [id number] 5#1.00CD:127 Normal [facility] Capillary Glucose POCon 10-11 Glucose [Mass/Vol] 169 mg/dL High 55-99 [facility] Comment on above: Performed By: #### 2 [id number] #### [facility] [address] [place] [address] Glucose [Mass/Vol] 145 mg/dL High 55-99 [facility] Comment on above: Performed By: #### 2 [id number] #### [facility] [address] [place] [address] HBOon 11-07-2022 HBO [id number] 6#2.00CD:127 Normal [facility] Nursing Note - Woundon 11-07 Nursing Note - Wound [id number] 0 [id number] 7#2.00CD:127 Normal [facility] Procedure - Woundon 11-08-19 Procedure - Wound [id number] 7#1.00CD:127 Normal [facility] Capillary Glucose POCon 10-10 Glucose [Mass/Vol] 190 mg/dL High 55-99 [facility] Comment on above: Result Comment: Oliva hanane Meter Performed By: #### 2 [id number] #### [facility] [address] [place] [address] Glucose [Mass/Vol] 141 mg/dL High 55-99 [facility] Comment on above: Performed By: #### 2 [id number] #### [facility] [address] [place] [address] Glucose [Mass/Vol] 111 mg/dL High 55-99 [facility] Comment on above: Performed By: #### 2 [id number] #### [facility] [address] [place] [address] HBOon 11-06-2022 HBO [id number] 4#2.00CD:127 Normal [facility] Multi-Wound Charton 11-07-19 23 Multi-Wound Chart [id number] 0#1.00CD:127 Normal [facility] Nursing Assessment - Woundon 11-06-2022 Nursing Assessment - Wound [id number] 6#1.00CD:127 Normal [facility] Nursing Note - Woundon 11-06 Nursing Note - Wound [id number] 0 [id number] 3#2.00CD:127 Normal [facility] Physician Orderon 11-06-2022 Physician Order [id number] 3#1.00CD:127 Normal [facility] Physician Order [id number] 9#1.00CD:127 Normal [facility] Capillary Glucose POCon 10-10 Glucose [Mass/Vol] 215 mg/dL High 55-[address] [place] [address] Comment on above: Performed By: #### 2 [id number] ####[facility] [address] [place] [address] Glucose [Mass/Vol] 169 mg/dL [place] [address] [place] [address] Comment on above: Performed By: #### 2 [id number] #### [facility] Laboratory [address] [place] [address] Glucose [Mass/Vol] 102 mg/dL High -99 [facility] Comment on above: Performed By: #### 2 [id number] #### [facility] Laboratory [address] [place] [address] Glucose [Mass/Vol] 98 mg/dL Normal [address] [place] [address] Comment on above: Result Comment: Repe at Test Performed By: #### 2 [id number] ####[facility] [address] [place] [address] Consent for Treatmenton 10-10 Consent for Treatment [id number] 1#1.00CD:127 Normal [facility] HBOon 11-05-2022 HBO [id number] 1#1.00CD:127 Normal [facility] Nursing Note - Woundon 11-05 Nursing Note - Wound [id number] 0 [id number] 5#1.00CD:127 Normal [facility] Capillary Glucose POCon 10-10 Glucose [Mass/Vol] 148 mg/dL High [address] [place] [address] Comment on above: Performed By: #### 2 [id number] #### [facility] Laboratory [address] [place] [address] Glucose [Mass/Vol] 265 mg/dL [address] Comment on above: Performed By: #### 2 [id number] #### [facility] Laboratory [address] [place] [address] HBOon 11-02-2022 HBO [id number] 2#1.00CD:127 Normal [facility] Nursing Note - Woundon 11-02 Nursing Note - Wound [id number] 0 [id number] 6#1.00CD:127 Normal [facility] Nursing Note - Wound [id number] 0 [id number] 4#1.00CD:127 Normal [facility] Physician Orderon 11-02-2022 Physician Order [id number] 5#1.00CD:127 Normal [facility] Physician Order [id number] 6#1.00CD:127 Normal [facility] CHEMISTRYOrdered By: SYSTEM SYSTEM on 11-01-2022 Glucose post fast [Mass/Vol] 616 mg/dL Invalid Interpretation Code 55 - 99 mg/dL [facility] Remisol Comment on above: Result Comment: Crit ical Result verified by repeat analysis\Critical Result S_GLUF:616 Called to DANIKA HERNADEZ AT WOUND [facility] by DAVON RUIZ And Read Back For Confirmation at: 11/01/2022 09:57:53 Capillary Glucose POCon 10-10 Glucose Cap >500 Abnormal 55-99 [facility] Comment on above: Performed By: #### 2 [id number] #### [facility] Laboratory [address] [place] [address] Glucose Cap >500 Abnormal 55-99 [facility] Comment on above: Result Comment: Oliva hanane Meter Performed By: #### 2 [id number] #### [facility] Laboratory [address] [place] [address] Glu Fastingon 11-01-2022 Glucose [Mass/Vol] 616 mg/dL Abnormal 55-99 [facility] Comment on above: Result Comment: Crit ical Result verified by repeat analysis\Critical Result S_GLUF:616 Called to DANIKA HERNADEZ AT WOUND [facility] by DAVON RUIZ And Read Back For Confirmation at: 11/01/2022 09:57:53 Performed By: #### 2 [id number] #### [facility] Laboratory [address] [place] [address] Consent for Procedure/Surger yon 10-31-2022 Consent for Procedure/Surgery [id number] #1.00CD:127 Normal [facility] Consent for Treatmenton 10-10 Consent for Treatment [id number] 30 [id number] #1.00CD:127 Normal [facility] Correspondence - Woundon Correspondence - Wound [id number] 080 [id number] #1.00CD:127 [facility] Nursing Note - Woundon 10-31 Nursing Note - Wound [id number] 0 [id number] 0#1.00CD:127 [facility] Physician Orderon 10-31-2022 Physician Order [id number] 8#1.00CD:127 [facility] Consent for Treatmenton 10-09 Consent for Treatment [id number] 30 [id number] #1.00CD:127 [facility] Correspondence - Woundon Correspondence - Wound [id number] [facility] [id number] 9#1.00CD:127 [facility] Correspondence - Wound [id number] [facility] [id number] 0#1.00CD:127 [facility] Correspondence - Wound [id number] [facility] [id number] 9#1.00CD:127 [facility] Insurance Correspondenceon 0 10-25-2022 Insurance Correspondence [id number] 4#1.00CD:127 [facility] Nursing Assessment - Woundon 10-25-2022 Nursing Assessment - Wound [id number] 4#1.00CD:127 [facility] Nursing Note - Woundon 10-25 Nursing Note - Wound [id number] 0 [id number] 0#1.00CD:127 [facility] Physician Orderon 10-25-2022 Physician Order [id number] 6#1.00CD:127 [facility] Physician Order [id number] 1#1.00CD:127 Normal [facility] Procedure - Woundon 10-26-19 Procedure - Wound [id number] 0#1.00CD:127 Normal [facility] Progress Note - Woundon 10-09 Progress Note - Wound [id number] 30 [id number] 3#1.00CD:127 Normal [facility] XR Chest 2 Viewson XR Chest [...] Godwin Brower MD Transcribed by: ROSY Technologist: CC Technical Comments Radiation Dose: Ka,r in mGy = na DAP = na Normal [facility] Insurance Correspondenceon 0 10-18-2022 Insurance Correspondence [id number] #1.00CD:127 [facility] XR Foot 3+ Views Lefton 10-09 XR [...] in mGy = na DAP = na [facility] Consent for Treatmenton Consent for Treatment [id number] 30 [id number] #1.00CD:127 [facility] Consent for Treatment [id number] 30 [id number] #1.00CD:127 [facility] Multi-Wound Charton 10-18-19 Multi-Wound Chart [id number] 9#1.00CD:127 [facility] No Panel InformationOrdered By: Emily Walton on 10-17-2022 GS Occasional Gram Positive [facility] Nursing Assessment - Woundon 10-17-2022 Nursing Assessment - Wound [id number] 2#1.00CD:127 [facility] Nursing Note - Woundon 10-17 Nursing Note - Wound [id number] 0 [id number] 3#2.00CD:127 [facility] Physician Orderon 10-17-2022 Physician Order [id number] 7#2.00CD:127 [facility] Physician Order [id number] 4#1.00CD:127 [facility] Procedure - Woundon 10-18-19 Procedure - Wound [id number] 5#1.00CD:127 [facility] Progress Note - Woundon - Progress Note - Wound [id number] 30 [id number] 0#1.00CD:127 [facility] Consent for Treatmenton -0 Consent for Treatment [id number] 30 [id number] #1.00CD:127 [facility] Multi-Wound Charton 10-16-19 Multi-Wound Chart [id number] 9#1.00CD:127 [facility] Nursing Note - Woundon 10-15 Nursing Note - Wound [id number] 0 [id number] 3#1.00CD:127 [facility] Physician Orderon 10-15-2022 Physician Order [id number] 6#1.00CD:127 [facility] Procedure - Woundon 10-16-19 Procedure - Wound [id number] 8#1.00CD:127 [facility] Consent for Procedure/Surger yon 10-10-2022 Consent for Procedure/Surgery [id number] 6#1.00CD:127 [facility] Consent for Treatmenton Consent for Treatment [id number] 30 [id number] #1.00CD:127 [facility] Multi-Wound Charton 10-11-19 Multi-Wound Chart [id number] 9#1.00CD:127 [facility] Nursing Assessment - Woundon 10-10-2022 Nursing Assessment - Wound [id number] 7#1.00CD:127 [facility] Nursing Note - Woundon 10-10 Nursing Note - Wound [id number] 0 [id number] 1#1.00CD:127 Normal [facility] Physician Orderon 10-10-2022 Physician Order [id number] 0#1.00CD:127 Normal [facility] Procedure - Woundon 10-11-19 Procedure - Wound [id number] 0#1.00CD:127 Normal [facility] Progress Note - Woundon Progress Note - Wound [id number] 30 [id number] 3#1.00CD:127 [facility] Discharge Instructionson Discharge Instructions [id number] 307 [id number] 1#1.00CD:127 [facility] Insurance Correspondence Off iceon 10-04-2022 Insurance Correspondence Office [id number] #1.00CD:127 Normal [facility] CHEMISTRYOrdered By: Carlos Hill on 10-03-2022 POC Device SN [id number] Invalid Interpretation Code [facility] POC Subsection POC User ID [id number] Invalid Interpretation Code [facility] POC Subsection POC Username AUSTIN CURRIE Invalid Interpretation Code [facility] POC Subsection Capillary Glucose POCOrdered By: Carlos Billingsley on 10-03-2022 Glucose [Mass/Vol] 222 mg/dL High 55-99 [facility] P OC Subsection Comment on above: Result Comment: Luna webb RN/MD Performed By: #### 2 [id number] #### [facility] Laboratory [address] [place] [address] Inpatient Clinical Summaryon 10-03-2022 Inpatient Clinical Summary [address] [address] Clinical Summary Person Information: Name: JILLIAN LITTLE Age: 62 Years : 1960 Sex: Male PCP: SARA LESTER DO Marital Status: Race: White Ethnicity: Non- or Language: Sudanese Visit Id: Visit Reason: LEFT FOOT WOUND Speciality: Acuity: Enc Type: Observation Med Service: Medical Arrival: 10/02/2022 09:25:11 Discharge: Dispo Type: Admitted as IP to this Hosp Address: [address] [place] [id number] Provider Notes: Diagnosis: 1:Chronic GERD; 2:HTN (hypertension); [...] This Visit Final Med List: acetaminophen-hydroc odone (Tyler 325 mg-5 mg oral tablet) 1 Tablets [...] Tablets By Mouth every day. Refills: 0. [facility] Prescription (glucometer, matching strips and lancets, insulin [...] Physician: Follow up: With: Address: When: Zenon Pamela [facility]: c/o [facility], [address] [place] [address], [facility] [place] [address] In 1 week 10/10/2022 With: Address: When: [place] [address] Business (1) Type Location Start Finish State Secured Appointment Type Secured Location 10/10/2022 9:45 AM 10/10/2022 10:30 AM Confirmed Patient Education Information: Normal [facility] Inpatient Patient Summaryon 10-03-2022 Inpatient Patient Summary JILLIAN LITTLE :1960 Visit Date:10/02/2022 Inpatient Discharge Instructions Your Care Team Admitting Physician - Anthony Mansfield MD Reason for Your Visit swelling and drainage [...] care physician. This Is Your Medications List Misc Prescription (glucometer, matching strips and lancets, insulin pen and needles, alcohol swabs) acetaminophen-hydroc odone (Tyler 325 mg-5 mg oral tablet) amitriptyline (amitriptyline [...] dressing as instructed Pharmacy Information [facility] [place] Previously Scheduled Follow-Up Appointments Saturday 9:45 AM EDT With: Zenon Santiago DPM Where: [facility] New Follow Up Appointments after Discharge Follow Up with Zenon Santiago When: 10/10/2022 09:45 AM EDT Comments: Wound clinic Where: [facility]: c/o [address] [place] [address]- Follow Up with SARA LESTER When: In 0 days Where: [address] [place] [address]- Business (1) Medications What How Much When Why Instructions Next Dose Unchanged acetaminophen-hydroc odone (Tyler 325 mg-5 mg oral tablet) 1 Tablets [...] of lis (more content not included)... Normal [facility] Inpatient Patient Summary [place] [id number] Patient Discharge Instructions PERSON INFORMATION Name: JILLIAN LITTLE Date of : 1960 Current Date: 10/03/2022 10:40:10 PHYSICIANS Admitting Physician: Shyla MCGILL, Anthony Primary Care Physician: SARA LESTER DO PCP [...] results: Follow up: With: Address: When: Zenon Santiago [facility]: c/o [facility], [address] [place] [address], [place] [address] In 1 week 10/10/2022 With: Address: When: SARA LESTER [address] [place] [address] [facility] (1) In the event that this physician does [...] with No Changes Other Medications acetaminophen-hydroc odone (Tyler 325 mg-5 mg oral tablet) 1 Tablets [...] BS between >40 (more content not included)... Normal [facility] Interdisciplinary Note - Harpreet e Manageron 10-03-2022 Interdisciplinary Note - Customer Security Clerk Pt is awake and alert in bed, previously rounded with Dr. Mansfield and aware of plan to DC home today at bedside and will transport at DC. PCP verified and insurance information reviewed and DME discussed. Declines any concerns or DC needs. Contact information provided and white board updated. Observation status reviewed, WEEKS form reviewed with pt and original provided. [facility] Comment on above: Result Comment: Elec tronically Signed By: Abe ARCHIBALD, Rachana\.br\Date and Time Signed: 10/03/22 10:22 EDT Message from Medicareon 07- Message from Medicare [id number] 07 [id number] #1.00CD:127 [facility] Physician Orderon 10-03-2022 Physician Order [id number] 6#1.00CD:127 [facility] Progress Note-Physicianon Progress Note-Physician Patient: JILLIAN LITTLE [...] list: All Problems Anemia / SNOMED CT 822259200 / Confirmed At risk for falls / SNOMED CT 488799654 / Possible Problem added when Risk for Falls Careplan was initiated. diabetes / SNOMED CT 051577141 / Confirmed Diabetic foot ulcer / SNOMED CT 6933480289 / Confirmed Chronic GERD / SNOMED CT 510972856 / Confirmed HTN (hypertension) / ICD-9-CM 401.9 / Confirmed Hyperlipidemia / SNOMED CT 75079396 / Confirmed HLD (hyperlipidemia) / SNOMED CT 17893962 / Confirmed Objective vasc: dp/pt palpable no [...] see in wound care next week Normal [facility] Comment on above: Result Comment: Elec tronically Signed By: Zenon Santiago DPM.jarek\Date and Time Signed: 10/03/22 09:21 EDT Auto Diffon 10-02-2022 Basophils/100 WBC (Bld) 1.0 % Normal 0.0-2.0 F [facility] Comment on above: Order Comment: Order Added by Discern Expert. Performed By: #### 1 [id number], 39926359, 8540114, 6063488, 61265366, 9408159, 0812822, 1027640, 0871725, 0292755 ####[facility] [address] [place] [address] Basophils/Leukocytes Auto (Bld) [Pure # fraction] 0.1 E9/L Normal 0.0-0.2 [facility] Comment on above: Order Comment: Order Added by Discern Expert. Performed By: #### 1 7207732, 01314901, 7700338, 8558741, 09124510, 1667027, 0956304, 6879296, 3950113, 6186615 ####[place] [address] [place] [address] Eosinophils/100 WBC (Bld) 3.3 % Normal 0.0-8.0 [facility] Comment on above: Order Comment: Order Added by Discern Expert. Performed By: #### 1 7893013, 19589797, 0093852, 4753453, 35801815, 3494668, 0567704, 0560890, 6714377, 6272698 ####[place] [address] [place] [address] Eosinophils/Leukocytes Auto (Bld) [Pure # fraction] 0.2 E9/L Normal 0.0-0.5 [facility] Comment on above: Order Comment: Order Added by Discern Expert. Performed By: #### 1 3913789, 86096763, 9060253, 2100050, 04601272, 0226802, 5565117, 6362171, 5256857, 4858852 ####[address] [address] Lymphocytes/100 WBC (Bld) 33.0 % Normal 14.0-50.0 [facility] Comment on above: Order Comment: Order Added by Discern Expert. Performed By: #### 1 6253975, 47922262, 7204359, 9754157, 65442043, 2619460, 7464818, 4850047, 2242377, 9640588 ####[place] [address] [place] [address] Lymphocytes/Leukocytes Auto (Bld) [Pure # fraction] 1.9 E9/L Normal 1.0-4.0 [facility] Comment on above: Order Comment: Order Added by Discern Expert. Performed By: #### 1 6327941, 82789236, 6336888, 6785225, 81802842, 8831254, 7669754, 9919316, 1798779, 1563934 ####[facility] [address] [place] [address] Monocytes/100 WBC (Bld) 6.4 % Normal 4.0-14.0 [facility] Comment on above: Order Comment: Order Added by Discern Expert. Performed By: #### 1 0338573, 94211801, 5965056, 5710750, 52800370, 5927105, 8531470, 5487206, 4817682, 7099097 ####[place] [address] [place] [address] Monocytes/Leukocytes Auto (Bld) [Pure # fraction] 0.4 E9/L Normal 0.2-1.0 [facility] Comment on above: Order Comment: Order Added by Discern Expert. Performed By: #### 1 3337802, 03172658, 4288327, 1350525, 53100733, 2865988, 5245612, 3578173, 7409689, 5680766 ####[place] [address] [place] [address] Neutrophils/100 WBC (Bld) 56.3 % Normal 36.0-75.0 [facility] Comment on above: Order Comment: Order Added by Discern Expert. Performed By: #### 1 1142323, 85792890, 8668351, 2915336, 14188575, 5392373, 2003176, 8281146, 6542116, 4270958 ####[place] [address] [place] [address] Neutrophils/Leukocytes Auto (Bld) [Pure # fraction] 3.2 E9/L Normal 2.0-7.5 [facility] Comment on above: Order Comment: Order Added by Discern Expert. Performed By: #### 1 7197328, 94286947, 0638376, 9796832, 93532449, 1088330, 8093552, 4875871, 4084273, 7183816 ####[place] [address] [place] [address] CBC w/ Auto Diffon 3 Erythrocyte distribution width (RBC) [Ratio] 15.3 % High 10.9-14.2 [facility] Comment on above: Performed By: #### 1 9622655, 17138554, 8438416, 9850595, 07247780, 4306514, 3319212, 9473136, 0354651, 6705998 ####[facility] [address] [place] [address] Hematocrit (Bld) [Volume fraction] 37.2 % Low 37.7-49.0 [facility] Comment on above: Performed By: #### 1 3741677, 13414444, 1316176, 8868461, 92879272, 6385480, 2985424, 2393847, 6684640, 3161357 ####[facility] [address] [place] [address] Hemoglobin (Bld) [Mass/Vol] 12.6 g/dL Low 13.5-17.5 [facility] Comment on above: Performed By: #### 1 1940868, 53015919, 0416593, 8204669, 97515230, 6973295, 8959331, 1719939, 6225955, 8767428 ####[facility] [address] [place] [address] MCH (RBC) [Entitic mass] 30.1 pg Normal 27.0-34.0 [facility] Comment on above: Performed By: #### 1 5304039, 95625865, 6086406, 3896451, 16931697, 2658337, 8683006, 5540877, 9120447, 1808070 ####[facility] [address] [place] [address] MCHC (RBC) [Mass/Vol] 34.0 g/dL Normal 31.4-36.0 [facility] Comment on above: Performed By: #### 1 7407942, 73672825, 9132063, 8280587, 08515517, 3501293, 8612286, 6444025, 6641609, 9812241 ####[facility] [address] [place] [address] MCV (RBC) [Entitic vol] 88.5 fL Normal 80.0-100.0 F [facility] Comment on above: Performed By: #### 1 9993538, 32438305, 2997593, 6967526, 71299253, 5720868, 4824285, 0913177, 3924223, 5269850 ####[facility] [address] [place] [address] Platelet mean volume (Bld) [Entitic vol] 7.7 fL Normal 6.4-10.8 [facility] Comment on above: Performed By: #### 1 0117710, 13367774, 7020259, 8016775, 91560575, 5269497, 5802740, 1734976, 0638091, 4689694 ####[facility] [address] [place] [address] Platelets (Bld) [#/Vol] 268.0 E9/L Normal 150.0-500.0 [facility] Comment on above: Performed By: #### 1 2016553, 14064434, 8471195, 8413233, 17571154, 6674781, 7673929, 4170087, 6831313, 1241332 ####[facility] [address] [place] [address] RBC (Bld) [#/Vol] 4.2 E12/L Low 4.3-5.9 [facility] Comment on above: Performed By: #### 1 7520775, 72811853, 2526499, 5288253, 24442624, 5974822, 5862978, 4474659, 9276593, 2742002 ####[facility] [address] [place] [address] WBC corrected for nucl RBC Auto (Bld) [#/Vol] 5.7 E9/L Normal 4.0-11.0 [facility] Comment on above: Performed By: #### 1 5649177, 64859395, 2122220, 0510369, 66928350, 9278585, 3825642, 3624099, 7335646, 0848631 ####[facility] [address] [place] [address]257 CHEMISTRYOrdered By: Lab ROP User on 10-02-2022 Glucose [Mass/Vol] 305 mg/dL High 55 - 99 mg/dL [facility] POC Subsection Comment on above: Result Comment: Luna webb RN/ POC Device SN [id number] Invalid Interpretation Code [facility] POC Subsection POC User ID [id number] Invalid Interpretation Code [facility] POC Subsection POC Username NOLANDELEONORA Garay Invalid Interpretation Code [facility] POC Subsection Glucose [Mass/Vol] 277 mg/dL High 55 - 99 mg/dL [facility] POC Subsection Comment on above: Result Comment: Luna webb RN/ POC Device SN [id number] Invalid Interpretation Code [facility] POC Subsection POC User ID [id number] Invalid Interpretation Code [facility] POC Subsection POC [...] 10-02-2022 Albumin [Mass/Vol] 4.1 g/dL Normal 3.3-5.0 [facility] Comment on above: Performed By: #### 1 [id number], 72445466, 7364547, 2731268, 79762673, 9260678, 2073851, 4688413, 0783960, 6080745 ####Linder [address] [address] Albumin/Globulin (S) [Mass conc ratio] 1.0 Low 1.1-2.2 [facility] Comment on above: Performed By: #### 1 0426629, 12322724, 6760541, 4559534, 40320426, 2533008, 6780307, 2422594, 2269410, 9425168 ####[address] [place] [address] ALP [Catalytic activity/Vol] 127 Int._Unit/L High 21-98 [facility] Comment on above: Performed By: #### 1 5823275, 70992219, 3498238, 8868972, 20656392, 1376317, 1415755, 6508028, 1947967, 4778516 ####[address] [address] ALT No additional P-5'-P [Catalytic activity/Vol] 23 Int._Unit/L Normal 6-46 [facility] Comment on above: Performed By: #### 1 0771207, 31999684, 5633736, 1994117, 50092144, 4657253, 1579072, 8803746, 2048557, 6157575 ####[address] [address] AST [Catalytic activity/Vol] 25 Int._Unit/L Normal 5-43 [facility] Comment on above: Performed By: #### 1 6084122, 89630187, 4822135, 7242014, 14537439, 2951186, 2966241, 1255327, 2601611, 3641773 ####[address] [place] [address] Bilirubin [Mass/Vol] 0.7 mg/dL Normal 0.0-1.1 [facility] Comment on above: Performed By: #### 1 8466259, 11080232, 8049045, 3119136, 21124586, 0310294, 0188592, 6747840, 4974065, 2772106 ####Linder [facility] [address] [place] [address] Creatinine [Mass/Vol] 1.2 mg/dL Normal 0.5-1.3 [facility] Comment on above: Performed By: #### 1 6396499, 86360485, 2651669, 2973142, 78615516, 1572313, 8994556, 4264666, 9812278, 2828033 ####[facility] [address] [place] [address] Globulin (S) [Mass/Vol] 4.1 g/dL High 1.4-4.0 [facility] Comment on above: Performed By: #### 1 6043537, 40560098, 6225189, 6492544, 34122871, 1857515, 8983255, 7904381, 4942554, 1137834 ####[facility] [address] [place] [address] Protein [Mass/Vol] 8.2 g/dL High 6.0-7.8 [facility] Comment on above: Performed By: #### 1 1678777, 80106079, 4813902, 5456177, 14347032, 6146469, 9834862, 1926304, 0689074, 3705712 ####[facility] [address] [place] [address] Urea nitrogen [Mass/Vol] 14 mg/dL Normal 5-21 [facility] Comment on above: Performed By: #### 1 7583724, 46346480, 7924536, 0431188, 47647189, 1854135, 8618804, 3767039, 5012904, 9092555 ####[facility] [address] [place] [address] Urea nitrogen/Creatinine [Mass ratio] 12 No Units Normal 10-20 [facility] Comment on above: Performed By: #### 1 0202502, 64679958, 7002005, 4346054, 16430631, 6507488, 9762397, 9697871, 0395037, 6313446 ####[facility] [address] [place] [address] Anion gap [Moles/Vol] 15 mmol/L Normal 6-16 [facility] Comment on above: Performed By: #### 1 6165950, 46769439, 1875517, 9191547, 62880005, 6738081, 5386231, 6348123, 4329772, 0417760 ####[facility] [address] [place] [address] Calcium [Mass/Vol] 9.3 mg/dL Normal 8.9-11.1 [facility] Comment on above: Performed By: #### 1 9738636, 35755083, 7754670, 5803106, 03442113, 2685327, 4479990, 9880854, 7531506, 5523891 ####[facility] [address] [place] [address] Chloride [Moles/Vol] 99 mmol/L Low 101-[address] [facility] Comment on above: Performed By: #### 1 5807249, 04607431, 3109332, 6458549, 30145240, 4400779, 0998793, 4340051, 6095237, 1895149 ####[facility] [address] [place] [address] CO2 [Moles/Vol] 25 mmol/L Normal 21-31 [facility] Comment on above: Performed By: #### 1 3846611, 24842082, 3874341, 5342858, 27266675, 8183121, 8059085, 1526625, 6658307, 8311353 ####[facility] [address] [place] [address] Glucose [Mass/Vol] 326 mg/dL High 55-199 [facility] Comment on above: Result Comment: If t his glucose result represents a fasting glucose, interpretation should refer to the following reference range: 55-99 mg/dL Performed By: #### 1 5244649, 10662305, 9801224, 7152990, 60233021, 4037261, 4274319, 9009210, 5470464, 6825389 ####[facility] [address] [place] [address] Potassium [Moles/Vol] 3.8 mmol/L Normal 3.5-5.3 [facility] Comment on above: Performed By: #### 1 3517807, 61841349, 4582097, 3132496, 07316927, 7298200, 2312891, 3898281, 4344636, 2925605 ####[facility] [address] [place] [address] Sodium [Moles/Vol] 135 mmol/L Normal 135-145 [facility] Comment on above: Performed By: #### 1 3109475, 64078086, 7494191, 0321836, 77241107, 0400863, 5135191, 0432298, 2796935, 7100546 ####[facility] [address] [place] [address] COAGULATIONOrdered By: Telma Harrison on 10-02-2022 aPTT Coag (PPP) [Time] 31.1 s Normal 25.1 - 36.5 second(s) [facility] Auto Coag INR Coag (PPP) [Relative time] 0.9 {INR} Invalid Interpretation Code [facility] Auto Coag PT Coag (PPP) [Time] 10.3 s Normal 9.4 - 1 2.5 second(s) [facility] Auto Coag Capillary Glucose POCon 09-09 Glucose [Mass/Vol] 305 mg/dL [facility] 55- [facility] Comment on above: Result Comment: Luna GILBERT Performed By: #### 2 [id number] ####[facility] [address] [place] [address] Glucose [Mass/Vol] 277 mg/dL [facility] Comment on above: Result Comment: Luna GILBERT Performed By: #### 2 [id number] #### [facility] [address] [place] [address] Glucose [Mass/Vol] 289 mg/dL [facility] Comment on above: Result Comment: Luna webb RN/ Performed By: #### 2 [id number] #### [facility] [address] [place] [address] Consent for Treatmenton 09-09 Consent for Treatment [id number] 30 [id number] #1.00CD:127 Normal [facility] Consent for Treatment [id number] 30 [id number] #1.00CD:127 Normal [facility] Consultation Noteon 10-03-19 Consultation Note Patient: [...] Take 10 units of lispro if B... Tyler 325 mg-5 mg oral tablet: 1 tab(s), Oral, q6hr for pain, 6 tab(s), Refill(s) 0 cholecalciferol 1000 intl units (25 mcg) oral tablet: 25 mcg = 1 tab(s), Oral, Daily, # 30 tab(s), Refills(s) 0, Pharmacy: [facility], 175.3, cm, 08/09/22 15:05:00 EDT, Height/Length Dosing, 96, kg, 08/09/22 15:05:00 EDT, Weight Dosing cyanocobalamin 1000 mcg Tab: 1,000 mcg = 1 tab(s), Oral, Daily, # 30 tab(s), Refills(s) 0, Pharmacy: [facility], 175.3, cm, 08/09/22 15:05:00 EDT, Height/Length Dosing, 96, kg, 08/09/22 15:05:00 EDT, Weight Dosing ferrous sulfate 325 mg Tab: 325 mg = 1 tab(s), Oral, TID, # 90 tab(s), Refills(s) 0, Pharmacy: [facility], 175.3, cm, 08/09/22 15:05:00 EDT, Height/Length Dosing, 96, kg, 08/09/22 15:05:00 EDT, Weight Dosing glimepiride 4 mg Tab: 4 mg = 1 tab(s), Oral, BID, # 60 tab(s), Refills(s) 0, Pharmacy: [facility], 175.3, cm, 08/09/22 15:05:00 EDT, Height/Length Dosing, 96, kg, 08/09/22 15:05:00 EDT, Weight Dosing glucometer, matching strips and lancets, insulin pen and needles, alcohol swabs: glucometer, matching strips and lancets, insulin pen and needles, alcohol swabs, 30 day supply, Print Requisition, Supply insulin glargine 100 units/mL SubQ Ana 10 mL: 20 unit(s), SubCutaneous, Bedtime, # 15 mL, Refills(s) 0, Pharmacy: [facility], 175.3, cm, 08/09/22 15:05:00 EDT, Height/Length Dosing, 96, kg, 08/09/22 15:05:00 EDT, Weight Dosing metformin 500 mg ER Tab: 500 mg = 1 tab(s), Oral, Bedtime, # 30 tab(s), Refills(s) 0, Pharmacy: [facility], 175.3, cm, 08/09/22 15:05:00 EDT, Height/Length Dosing, 96, kg, 08/09/22 15:05:00 EDT, Weight Dosing metformin 750 mg ER Tab: 750 mg = 1 tab(s), Oral, BID, # 60 tab(s), Refills(s) 0, Pharmacy: [facility], 175.3, cm, 08/09/22 15:05:00 EDT, Height/Length Dosing, 96, kg, 08/09/22 15:05:00 EDT, Weight Dosing metoprolol 25 mg ER Tab: 12.5 mg = 0.5 tab(s), Oral, Daily, # 15 tab(s), Refills(s) 0, Pharmacy: [facility], 175.3, cm, 08/09/22 15:05:00 EDT, Height/Length Dosing, 96, kg, 08/09/22 15:05:00 EDT, Weight Dosing repaglinide 1 mg Tab: 1 mg = 1 tab(s), Oral, TIDAC, # 90 tab(s), Refills(s) 0, Pharmacy: [facility], 175.3, cm, 08/09/22 15:05:00 EDT, Height/Length [...] 0 amitript (more content not included)... Normal [facility] Comment on above: Result Comment: Elec tronically Signed By: Maxim Santiago DPM.br\Date and Time Signed: 10/02/22 14:05 EDT ED Clinical Summaryon 2022 ED Clinical Summary [place] [id number] ED Clinical Summary Person Information Name: JILLIAN LITTLE/[facility] Age: 62 Years : 1960 Sex: Male Language: Sudanese PCP: SARA LESTER DO Marital Status: MRN: [id number] Visit Id: Visit Reason: LEFT FOOT WOUND Speciality: Acuity: 2 Enc Type: Observation Med Service: Emergency Arrival: 10/02/2022 09:25:11 Discharge: LOS: 000 03:02 Checkin: 10/02/2022 09:25:11 Checkout: 10/02/2022 12:27:57 Dispo Type: Admitted as IP to this [facility] EVENTS: Event Name Event Status Request Date/Time [...] 10/02/2022 12:27:57 10/02/2022 12:27:57 10/02/2022 12:27:57 ADDRESS: [address] [place] [id number] PHYS DOC NOTES: MEDICAL INFORMATION: Prescriptions Given: Medications to Continue with No Changes Other Medications acetaminophen-hydroc odone (Tyler 325 mg-5 mg oral tablet) 1 Tablets [...] per day (more content not included)... Normal [facility] ED Note-Physicianon 10-03-19 ED Note-Physician Basic [...] Given Sodi (more content not included)... Normal [facility] Comment on above: Result Comment: Elec tronically Signed By: Bill Presley DO\.br\Date and Time Signed: 10/02/22 10:33 EDT ED Patient Education Noteon 10-02-2022 ED Patient Education Note Normal [facility] ED Patient Summaryon 023 ED Patient Summary [place] [id number] Patient Discharge Instructions Person Information Name: JILLIAN LITTLE Age: 62 Years Arrival Date: 10/02/2022 09:25:11 Discharge Diagnosis: 1:Chronic GERD; 2:HTN (hypertension); 3:diabetes; 4:HLD (hyperlipidemia); 5:Diabetic foot ulcer; 6:Hyperlipidemia; Non-pressure chronic ulcer of other part of unspecified foot with unspecified severity Primary Care Physician: SARA LESTER DO Provider Information Primary Provider: Bill Presley DO Advanced Population Health Manager:None The exam and treatment you received in the Emergency Department were for an urgent problem and are not intended as complete care. It is important that you follow up with a doctor, nurse practitioner, or physician?s bookkeeping assistant for ongoing care. If your symptoms become worse or you do not improve as expected and you are unable to reach your usual health care provider, you should return to the Emergency Department. We are available 24 hours a day. JILLIAN LITTLE has been given the following [...] opioids can be used to help relieve grfqhigo-oz-cdeijk pain and are often prescribed following a [...] be struggling with addiction, tell your health point of care technician and ask for guidance or call [facility] National Helpline at 1-086-667-HELP. maría Dent (more content not included)... Normal [facility] Ferritinon 10-02-2022 Ferritin [Mass/Vol] 163 ng/mL Normal 24-336 [facility] Comment on above: Result Comment: NORM ALS MEN <30 YRS 16-132 ng/mL MEN >30 YRS 8-338 ng/mL WOMEN (PREMEN) 6-104 ng/mL WOMEN (POSTMEN) 12-210 ng/mL Performed By: #### 2 [id number] #### [facility] [address] [place] [address] HEMATOLOGYOrdered By: SYSTEM SYSTEM on 10-02-2022 Basophils/100 WBC (Bld) 1.0 % Normal 0.0 - 2.0 % [facility] [...] 7.7 fL Normal 6.4 - 10.8 fL FT HemeAutoSS Platelets (Bld) [#/Vol] 268.0 E9/L Normal 150. 0 - 500.0 E9/L FT HemeAutoSS RBC (Bld) [#/Vol] 4.2 E12/L Low 4.3 - 5.9 E12/L FT HemeAutoSS WBC corrected for nucl RBC Auto (Bld) [#/Vol] 5.7 E9/L Normal 4.0 - 11.0 E9/L [facility] HemeAutoSS Ironon 10-02-2022 Iron [Mass/Vol] 92 microgram/dL Normal 35-153 [facility] Comment on above: Performed By: #### 2 [id number] #### [facility] [address] [place] [address] Lactic AcidOrdered By: [email or web address] SYSTEM on 10-02-2022 Lactate [Mass/Vol] 2.3 mmol/L High 0.5-2.2 [facility] R emisol Comment on above: Order Comment: Order added by EKS Rule. (FT_LACTIC_ACID_REFLEX) Adds reflex Lactic Acid 4 hours after initial if result is greater than or equal to 2.0. Performed By: #### 2 [id number] #### [facility] [address] [place] [address] Lactic Acidon 10-02-2022 Lactate [Mass/Vol] 2.5 mmol/L High 0.5-2.2 [facility] Comment on above: Performed By: #### 1 5936710, 28596674, 9606234, 5716614, 97711002, 2295224, 9886685, 7236699, 9895949, 2135245 ####[facility] [address] [place] [address] Monitor Recordon 10-02-2022 Monitor Record [id number] 4#1.00CD:127 Normal [facility] Multi-Wound Charton 10-03-19 Multi-Wound Chart [id number] 4#1.00CD:127 Normal [facility] No Panel InformationOrdered By: ANGPROCESSSERVER MICROBIOLOGY on 10-02-2022 Blood Culture Charcoal No growth at 1 da y. Final to follow at 7 days. [facility] Blood Culture Charcoal No growth at 1 da y. Final to follow at 7 days. [facility] Nursing Note - Woundon 10-02 Nursing Note - Wound [id number] 0 [id number] 2#1.00CD:127 Normal [facility] PT & PTTon 10-02-2022 aPTT Coag (PPP) [Time] 31.1 second(s) Normal 25.1-36.5 [facility] Comment on above: Result Comment: Para [...] the same coagulation reagent and instrumentation as [facility]. Currently there are no coagulation studies available worldwide for children to 14 days, and no normal ranges. Heparin therapeutic range (represented by Anti-Factor Xa activity of 0.2 - 0.4 U/mL) corresponds to PTT of 56.6 - 109.0 sec. Performed By: #### 2 [id number] #### [facility] [address] [place] [address] INR Coag (PPP) [Relative time] 0.9 {INR} Invalid Interpretation Code [facility] Comment on above: Result Comment: INR results are specifically intended to assess patients stabilized on long-term Anticoagulation therapy suggested INR?s ?Less Intensive Anticoagulation? 2.0 ? 3.0 Conventional Range 3.0 ? 4.5 Performed By: #### 2 [id number] #### [facility] [address] [place] [address] PT Coag (PPP) [Time] 10.3 second(s) Normal 9.4-12.5 [facility] Comment on above: Result Comment: 15 [...] the same coagulation reagent and instrumentation as [facility]. Currently there are no coagulation studies available worldwide for children to 14 days, and no normal ranges. Performed By: #### 2 [id number] #### [facility] [address] [place] [address] Progress Note-Nurseon 2022 Progress Note-Nurse Only one liter of NS given per Dr Sakina Maxwell [facility] TIBC Calculatedon 10-02-2022 Iron binding capacity [Mass/Vol] 327 microgram/dL Normal 250-400 [facility] Comment on above: Performed By: #### 2 [id number] #### [facility] [address] [place] [address] Transferrin [Mass/Vol] 234 mg/dL Normal 200-370 [facility] Comment on above: Performed By: #### 2 [id number] #### [facility] [address] [place] [address] Troponinon 10-02-2022 Troponin I.cardiac [Mass/Vol] 5.20 pg/mL Low 15.90-38.40 [facility] Comment on above: Result Comment: The 95% CI (Confidence Interval) PPV (Positive Predictive Value) for myocardial infarction in females is 38 pg/mL, in males 51 pg/mL. The results should be used in conjunction with clinical conditions of myocardial infarction. (Access High Sensitivity Troponin I Instructions For Use, [place], October 2017) Performed By: #### 2 [id number] #### [facility] [address] [place] [address] US PVR Lower EXT Complete Bi laton [...] MD Transcribed by: ROSY Technologist: HW Normal [facility] XR Foot 3+ Views Lefton 09-09 [...] pm EDT, Song Loya MD, DISAGREE Normal [facility] eGFRon 10-02-2022 GFR/1.73 sq M.predicted among non-blacks MDRD (S/P/Bld) [Vol rate/Area] 69 mL/min/1.73 m2 Normal >=59 [facility] Comment on above: Order Comment: Order added by Discern Expert. Result Comment: Ict Business Analyst sarah kidney disease could be indicated at eGFR's of less than 60 mL/min/1.73m2. Kidney failure is indicated at less than 15 mL/min/1.73m2. Performed By: #### 1 [id number], 14211914, 6173750, 5430641, 75603838, 9735918, 9341954, 0550043, 9202036, 0185233 ####[facility] [address] [place] [address] Consent for Treatmenton 09-08 Consent for Treatment [id number] 30 [id number] #1.00CD:127 Normal [facility] Multi-Wound Charton 09-27-19 Multi-Wound Chart [id number] 7#1.00CD:127 Normal [facility] Nursing Assessment - Woundon 09-26-2022 Nursing Assessment - Wound [id number] 3#1.00CD:127 [facility] Nursing Note - Woundon 09-26 Nursing Note - Wound [id number] 0 [id number] 5#1.00CD:127 [facility] Physician Orderon 09-26-2022 Physician Order [id number] 9#1.00CD:127 [facility] Physician Order [id number] 9#1.00CD:127 [facility] Procedure - Woundon 09-27-19 Procedure - Wound [id number] 1#1.00CD:127 [facility] Progress Note - Woundon 09-08 Progress Note - Wound [id number] 30 [id number] 3#1.00CD:127 [facility] Consent for Treatmenton 09-08 Consent for Treatment [id number] 30 [id number] #1.00CD:127 [facility] Multi-Wound Charton 09-25-19 Multi-Wound Chart [id number] 6#1.00CD:127 [facility] Nursing Note - Woundon 09-24 Nursing Note - Wound [id number] 0 [id number] 1#2.00CD:127 [facility] Procedure - Woundon 09-25-19 Procedure - Wound [id number] 0#1.00CD:127 [facility] Consent for Treatmenton 09-08 Consent for Treatment [id number] 30 [id number] #1.00CD:127 Normal [facility] Multi-Wound Charton 09-22-19 Multi-Wound Chart [id number] 4#1.00CD:127 [facility] Nursing Note - Woundon 09-21 Nursing Note - Wound [id number] 0 [id number] 1#1.00CD:127 [facility] Physician Orderon 09-21-2022 Physician Order [id number] 8#1.00CD:127 [facility] Procedure - Woundon 09-22-19 Procedure - Wound [id number] 4#1.00CD:127 [facility] Progress Note - Woundon 09-08 Progress Note - Wound [id number] 30 [id number] 1#2.00CD:127 [facility] Consent for Procedure/Surger yon 09-19-2022 Consent for Procedure/Surgery [id number] 2#1.00CD:127 [facility] Consent for Treatmenton 09-08 Consent for Treatment [id number] 30 [id number] #1.00CD:127 [facility] Correspondence - Woundon Correspondence - Wound [id number] 307 [id number] 6#1.00CD:127 [facility] Correspondence - Wound [id number] 307 [id number] 2#1.00CD:127 [facility] Multi-Wound Charton 09-20-19 Multi-Wound Chart [id number] 6#1.00CD:127 [facility] Nursing Assessment - Woundon 09-19-2022 Nursing Assessment - Wound [id number] 3#1.00CD:127 [facility] Nursing Note - Woundon 09-19 Nursing Note - Wound [id number] 0 [id number] 4#1.00CD:127 [facility] Physician Orderon 09-19-2022 Physician Order [id number] 5#1.00CD:127 [facility] Procedure - Woundon 09-20-19 Procedure - Wound [id number] 9#2.00CD:127 [facility] Physician Orderon 09-18-2022 Physician Order [id number] 7#1.00CD:127 [facility] Consent for Treatmenton 09-08 Consent for Treatment [id number] 30 [id number] #1.00CD:127 [facility] Multi-Wound Charton 09-18-19 Multi-Wound Chart [id number] 5#1.00CD:127 [facility] Nursing Note - Woundon 09-17 Nursing Note - Wound [id number] 0 [id number] 2#1.00CD:127 [facility] Procedure - Woundon 09-18-19 Procedure - Wound [id number] 2#1.00CD:127 [facility] Multi-Wound Charton 09-15-19 Multi-Wound Chart [id number] 1#1.00CD:127 [facility] Nursing Note - Woundon 09-14 Nursing Note - Wound [id number] 0 [id number] 0#1.00CD:127 [facility] Physician Orderon 09-14-2022 Physician Order [id number] 1#1.00CD:127 [facility] Physician Order [id number] 1#1.00CD:127 [facility] Physician Order [id number] 0#1.00CD:127 [facility] Procedure - Woundon 09-15-19 Procedure - Wound [id number] 3#1.00CD:127 [facility] Progress Note - Woundon Progress Note - Wound [id number] 30 [id number] #2.00CD:127 [facility] Nursing Note - Woundon 09-13 Nursing Note - Wound [id number] 0 [id number] 8#1.00CD:127 [facility] Multi-Wound Charton 09-11-19 Multi-Wound Chart [id number] 4#1.00CD:127 [facility] Procedure - Woundon 09-11-19 Procedure - Wound [id number] 7#1.00CD:127 [facility] Consent for Treatmenton 08-11 Consent for Treatment [id number] #1.00CD:127 [facility] Multi-Wound Charton 09-08-19 Multi-Wound Chart [id number] #1.00CD:127 [facility] Nursing Note - Woundon 06-30 -2023 Nursing Note - Wound [id number] 0 [id number] #1.00CD:127 [facility] Procedure - Woundon 09-08-19 Procedure - Wound [id number] #1.00CD:127 [facility] Consent for Procedure/Surger yon 09-05-2022 Consent for Procedure/Surgery [id number] 0#1.00CD:127 [facility] Consent for Treatmenton 08-10 Consent for Treatment [id number] 30 [id number] #1.00CD:127 [facility] Multi-Wound Charton 09-06-19 Multi-Wound Chart [id number] #1.00CD:127 [facility] Nursing Assessment - Woundon 09-05-2022 Nursing Assessment - Wound [id number] #1.00CD:127 [facility] Nursing Note - Woundon 09-05 Nursing Note - Wound [id number] 0 [id number] #2.00CD:127 [facility] Physician Orderon 09-05-2022 Physician Order [id number] #1.00CD:127 [facility] Physician Order [id number] #1.00CD:127 [facility] Procedure - Woundon 09-06-19 Procedure - Wound [id number] #1.00CD:127 [facility] Consent for Treatmenton 08-10 Consent for Treatment [id number] 30 [id number] #1.00CD:127 [facility] Multi-Wound Charton 09-04-19 Multi-Wound Chart [id number] 9#1.00CD:127 [facility] Nursing Note - Woundon 09-03 Nursing Note - Wound [id number] 0 [id number] 3#1.00CD:127 [facility] Procedure - Woundon 09-04-19 Procedure - Wound [id number] 9#1.00CD:127 [facility] Consent for Treatmenton 08-10 Consent for Treatment [id number] 30 [id number] #1.00CD:127 [facility] Multi-Wound Charton 09-01-19 Multi-Wound Chart [id number] 5#1.00CD:127 [facility] Nursing Note - Woundon 08-31 Nursing Note - Wound [id number] 0 [id number] 8#1.00CD:127 [facility] Physician Orderon 08-31-2022 Physician Order [id number] 6#1.00CD:127 [facility] Procedure - Woundon 09-01-19 Procedure - Wound [id number] 2#1.00CD:127 [facility] CHEMISTRYOrdered By: Lab ROP User on 08-14-2022 Glucose [Mass/Vol] 106 mg/dL High 55 - 99 mg/dL [facility] POC Subsection Comment on above: Result Comment: Luna webb RN/ POC Device SN [id number] Invalid Interpretation Code [facility] POC Subsection POC User ID [id number] Invalid Interpretation Code [facility] POC Subsection POC Username GUSTAVO EVERETT Invalid Interpretation Code [facility] POC Subsection CHEMISTRYOrdered By: Carlos ALCANTARA User on 08-13-2022 Glucose [Mass/Vol] 121 mg/dL High 55 - 99 mg/dL [facility] POC Subsection POC Device SN [id number] Invalid Interpretation Code FT POC Subsection POC User ID [id number] Invalid Interpretation Code [facility] POC Subsection POC Username MICAELA ORTIZ Invalid Interpretation Code [facility] POC Subsection Glucose [Mass/Vol] 79 mg/dL Normal 55 - 99 mg/dL [facility] POC Subsection Comment on above: Result Comment: Luna webb RN/ POC Device SN [id number] Invalid Interpretation Code [facility] POC Subsection POC User ID [id number] Invalid Interpretation Code [facility] POC Subsection POC Username ADELE JAN Invalid Interpretation Code [facility] POC Subsection CHEMISTRYOrdered By: SYSTEM SYSTEM on [...] 0.9 mg/dL Normal 0.5 - 1.3 mg/dL [facility] Remisol GFR/1.73 sq M.predicted among non-blacks MDRD (S/P/Bld) [Vol rate/Area] 97 mL/min/1.73 m2 Normal >=59mL/min/ 1.73 m2 [facility] Chem S Glucose [Mass/Vol] 140 mg/dL Normal 55 - 199 mg/dL FT Remisol Potassium [Moles/Vol] 4.2 mmol/L Normal 3.5 - 5.3 mmol/L [facility] Remisol Procalcitonin 3.18 ng/mL High 0.00 - 0.50 ng/mL [facility] Sodium [Moles/Vol] 138 mmol/L Normal 135 - 145 mmol/L [facility] Urea nitrogen [Mass/Vol] 9 mg/dL Normal 5 - 21 mg/dL [facility] Urea nitrogen/Creatinine [Mass ratio] 10 mg/mg Normal 10 - 20 [facility] COAGULATIONOrdered By: Telma Velez on 08-12-2022 Fibrin D-dimer FEU (PPP) [Mass/Vol] 3745 ng/mL FEU Invalid Interpretation Code 215 - 500 ng/mL FEU [facility] Auto Coag Comment on above: Result Comment: Resu lts Called To 2N/Jony Anayron By BC And Read Back For Confirmation [...] 8.4 g/dL Low 13.5 - 17.5 gm/dL [facility] HemeAutoSS MCH (RBC) [Entitic mass] 29.9 pg [...] (Sput) 2+ Normal upper respiratory virgen isolated [facility] No Panel InformationOrdered By: Emily Walton on 08-12-2022 GS 2+ White Blood Cells 1+ epithelial cells 2+ Yeast Occasional Gram Positive Cocci Occasional Gram Positive Rods [facility] Reference Laboratory Testing Ordered By: Harrison Espinosa on 08-12-2022 Cortisol [Mass/Vol] 14.9 ug/dL Invalid Interpretation Code 6.2-19.4mcg /dL [facility] SendOutsSS Comment on above: Result Comment: Seferino carlos Note: The reference interval and flagging for this test is for an AM collection. If this is a PM collection please use: Cortisol PM: 2.3-11.9 Performed at: [facility] [address] [id number] PhD Marlo Bowser CHEMISTRYOrdered By: SYSTEM SYSTEM [...] 69 mL/min/1.73 m2 Normal >=59mL/min/ 1.73 m2 [facility] Chem S Glucose [Mass/Vol] 342 mg/dL High 55 - 199 mg/dL [facility] Remisol Potassium [Moles/Vol] 4.2 mmol/L Normal 3.5 - 5.3 mmol/L [facility] Remisol Procalcitonin 6.43 ng/mL High 0.00 - 0.50 ng/mL [facility] Sodium [Moles/Vol] 137 mmol/L Normal 135 - 145 mmol/L [facility] Urea nitrogen [Mass/Vol] 14 mg/dL Normal 5 - 21 mg/dL [facility] Remisol Urea nitrogen/Creatinine [Mass ratio] 12 mg/mg [...] 6.8 E9/L Normal 2.0 - 7.5 E9/L [facility] HemeAutoSS HEMATOLOGYOrdered By: Gutierrez Guzmán on 08-10-2022 Erythrocyte distribution width (RBC) [Ratio] 14.7 % High 10.9 - 14.2 % [facility] HemeAutoSS Hematocrit (Bld) [Volume fraction] 27.1 % [...] 7.4 fL Normal 6.4 - 10.8 fL [facility] HemeAutoSS Platelets (Bld) [#/Vol] 224.0 E9/L Normal 150. 0 - 500.0 E9/L [facility] HemeAutoSS RBC (Bld) [#/Vol] 3.0 E12/L Low 4.3 - 5.9 E12/L [facility] HemeAutoSS WBC corrected for nucl RBC Auto (Bld) [#/Vol] 8.9 E9/L Normal 4.0 - 11.0 E9/L [facility] HemeAutoSS Laboratory - Microbiology an d Antimicrobial susceptibilityOrdered By: Fadia Cyr on 08-10-2022 MRSA DNA NAKIA+probe Ql (Unsp spec) MRSA Negative. [facility] MICRO OTHER TESTSOrdered By: Kati Castillo on 08-10-2022 Occult Bld Stl Negative (08/10/22 1:00 PM) Normal Negative FT Man Sero CHEMISTRYOrdered By: [employer] SYSTEM on 08-09-2022 Troponin I.cardiac [Mass/Vol] 6.30 [...] 10.50 pg/mL Low 15.90 - 38.40 pg/mL [facility] Remisol TSH Qn 0.77 m[IU]/L Normal 0.34 - 5.60 mcIU/mL [facility] Remisol CHEMISTRYOrdered By: Gutierrez can on 08-09-2022 HbA1c (Bld) [Mass fraction] 13.4 % High <=5.9% [facility] ChemAutoSS CHEMISTRYOrdered By: Jules Mas on 08-09-2022 Natriuretic peptide B (Bld) [Mass/Vol] 17 pg/mL Normal 5 - 80 pg/mL [facility] HemeManSS COAGULATIONOrdered By: Di Walton on 08-09-2022 aPTT Coag (PPP) [Time] 16.6 s Low 25.1 - 36.5 second(s) [facility] Auto Coag INR Coag (PPP) [Relative time] 1.1 {INR} Invalid Interpretation Code [facility] Auto Coag PT Coag (PPP) [Time] 12.2 s Normal 9.4 - 1 2.5 second(s) [facility] Auto Coag FT Blood GasesOrdered By: Alfredo Olmos on 08-09-2022 a/A Ratio Art 50.70 % Normal >=0.80% FT Resp A uto SS AaDO2 Art 50.2 mm[Hg] High 5.0 - 15.0 mmHg FT Resp Auto SS Allens Test Positive (08/09/22 4:10 PM) Normal [facility] Resp Auto SS Base Excess Arterial -0.7 mmol/L Low >=2.8mmol/L [facility] Resp Auto SS cCa2+ Art 4.76 mg/dL Normal 4.40 - 5.30 mg/dL [facility] Resp Auto SS cCl- Art 98.0 mmol/L Low 101.0 - 111.0 mmol/L [facility] Resp Auto SS cGlu Art 441 mg/dL High 55 - 99 mg/dL [facility] Resp Auto SS cK+ Art 4.4 mmol/L Normal 3.5 - 5.3 mmol/L [facility] Resp Auto SS cLac Art 2.0 mmol/L Normal 0.5 - 2.2 mmol/L [facility] Auto SS jowl trimmer+ Art 134.0 mmol/L Low 135.0 - 145.0 mmol/L [facility] Resp Auto SS Drawn by [facility] Invalid Interpretation Code [facility] Resp Auto SS FCOHb Art 1.9 % Normal 1.5 - 4.9 % [facility] Resp Aut o SS FIO2 BG 21 Invalid Interpretation Code [facility] Resp Auto SS FMetHb Art 0.2 % Normal 0.0 - 1.9 % [facility] Resp Aut o SS FO2Hb Art 86.5 % Low 93.0 - 100.0 % [facility] Resp Auto SS HCO3 (Bld) [Moles/Vol] 23.7 mmol/L Normal 22.0 - 26.0 mmol/L [facility] Resp Auto SS Hemoglobin (Bld) [Mass/Vol] 9.8 g/dL Low 12.0 - 17.0 gm/dL [facility] Resp Auto SS P CO2 Arterial 38.8 mm[Hg] Normal 35.0 - 45.0 mmHg [facility] Resp Auto SS P O2 Arterial 51.7 mm[Hg] Low 80.0 - 100.0 mmHg [facility] Resp Auto SS pH Arterial 7.400 Normal 7.350 - 7.450 [facility] Resp Auto SS Sample Site R Radial (08/09/22 4:10 PM) Normal [facility] Resp Auto SS Sample Type Arterial Draw (08/09/22 4:10 PM) Normal [facility] Resp Auto SS No Panel InformationOrdered By: [facility] MICROBIOLOGY on 08-09-2022 Blood Culture Charcoal No growth at 5 da ys. Final to follow at 7 days. [facility] Blood Culture Charcoal No growth at 5 da ys. Final to follow at 7 days. [facility] Basic Metabolic Panel w/ Ref belle to MGon 06-30-2022 Anion gap [Moles/Vol] 8 mmol/L Low 9 - 17 mmol/L [facility] Calcium [Mass/Vol] 9.3 mg/dL 8.6 - 10. 4 mg/dL [facility] Chloride [Moles/Vol] 102 mmol/L 98 - 10 7 mmol/L [facility] CO2 [Moles/Vol] 27 mmol/L 20 - 31 mmol/L [facility] Creatinine [Mass/Vol] 1.09 mg/dL 0.70 - 1.20 mg/dL [facility] GFR/1.73 sq M.predicted MDRD (S/P/Bld) [Vol rate/Area] - PINF [facility] Comment on above: These results are [...] 224 mg/dL High 70 - 99 mg/dL [facility] Interpretation and review of laboratory results Abnormal [facility] Potassium [Moles/Vol] 4.5 mmol/L 3.7 - 5.3 mmol/L [facility] Sodium [Moles/Vol] 137 mmol/L 135 - 144 mmol/L [facility] Urea nitrogen [Mass/Vol] 14 mg/dL 8 - 23 mg/dL [facility] Urea nitrogen/Creatinine (Bld) [Mass ratio] 13 9 - 20 [facility] Glucose, Whole Bloodon 06-30 Glucose [Mass/Vol] 189 mg/dL High 65 - 99 mg/dL [facility] Interpretation and review of laboratory results Abnormal [facility] Basic Metabolic Panel w/ Ref belle to MGon 06-29-2022 Anion gap [Moles/Vol] 8 mmol/L Low 9 - 17 mmol/L [facility] Calcium [Mass/Vol] 9.1 mg/dL 8.6 - 10. 4 mg/dL [facility] Chloride [Moles/Vol] 105 mmol/L 98 - 10 7 mmol/L [facility] CO2 [Moles/Vol] 27 mmol/L 20 - 31 mmol/L [facility] Creatinine [Mass/Vol] 1.05 mg/dL 0.70 - 1.20 mg/dL [facility] GFR/1.73 sq M.predicted MDRD (S/P/Bld) [Vol rate/Area] - PINF [facility] Comment on above: These results are [...] 220 mg/dL High 70 - 99 mg/dL [facility] Interpretation and review of laboratory results Abnormal [facility] Potassium [Moles/Vol] 4.3 mmol/L 3.7 - 5.3 mmol/L [facility] Sodium [Moles/Vol] 140 mmol/L 135 - 144 mmol/L [facility] Urea nitrogen [Mass/Vol] 14 mg/dL 8 - 23 mg/dL [facility] Urea nitrogen/Creatinine (Bld) [Mass ratio] 13 9 - 20 [facility] Culture, Wound Aerobic Onlyo n 06-29-2022 Interpretation and review of laboratory results Abnormal [facility] Microorganism identified Cx Nom (Unsp spec) SERRATIA MARCESCENS MODERATE GROWTH Abnormal [facility] Microorganism identified Cx Nom (Unsp spec) NORMAL SKIN VIRGEN [facility] Microorganism or agent identified Nom (Unsp spec) MODERATE NEUTROPHILS Abnormal [facility] Microorganism or agent identified Nom (Unsp spec) MIXED BACTERIAL MORPHOTYPES SEEN ON GRAM STAIN. Abnormal [facility] Specimen Description .FOOT [facility] Glucose, Whole Bloodon 06-29 Glucose [Mass/Vol] 270 mg/dL High 65 - 99 mg/dL [facility] Interpretation and review of laboratory results Abnormal [facility] Glucose [Mass/Vol] 258 mg/dL High 65 - 99 mg/dL [facility] Interpretation and review of laboratory results Abnormal [facility] Glucose [Mass/Vol] 171 mg/dL High 65 - 99 mg/dL [facility] Interpretation and review of laboratory results Abnormal [facility] Glucose [Mass/Vol] 165 mg/dL High 65 - 99 mg/dL [facility] Interpretation and review of laboratory results Abnormal [facility] Vancomycin Level, Randomon 0 06-29-2022 Vancomycin Random Date last dose 06.28.22 [facility] Vancomycin Random Dose amount 1250 [facility] Vancomycin Random Time last dose 2232 [facility]isort Vancomycin Rm 13.5 ug/mL [facility] Comment on above: Higher trough serum vancomycin concentrations of 15-20 ug/mL are recommended for complicated infections such as bacteremia, endocarditis, osteomyelitis, meningitis, and hospital acquired pneumonia. [facility] Basic Metabolic Panel w/ Ref belle to MGon 06-28-2022 Anion gap [Moles/Vol] 9 mmol/L 9 - 17 mmol/L [facility] Calcium [Mass/Vol] 8.5 mg/dL Low 8.6 - 10. 4 mg/dL [facility] Chloride [Moles/Vol] 103 mmol/L 98 - 10 7 mmol/L [facility] CO2 [Moles/Vol] 25 mmol/L 20 - 31 mmol/L [facility] Creatinine [Mass/Vol] 1.09 mg/dL 0.70 - 1.20 mg/dL [facility] GFR/1.73 sq M.predicted MDRD (S/P/Bld) [Vol rate/Area] - PINF [facility] Comment on above: These results are [...] 320 mg/dL High 70 - 99 mg/dL [facility] Interpretation and review of laboratory results Abnormal [facility] Potassium [Moles/Vol] 4.5 mmol/L 3.7 - 5.3 mmol/L [facility] Sodium [Moles/Vol] 137 mmol/L 135 - 144 mmol/L [facility] Urea nitrogen [Mass/Vol] 15 mg/dL 8 - 23 mg/dL [facility] Urea nitrogen/Creatinine (Bld) [Mass ratio] 14 9 - 20 [facility] Glucose, Whole Bloodon 06-28 Glucose [Mass/Vol] 375 mg/dL High 65 - 99 mg/dL [facility] Interpretation and review of laboratory results Abnormal [facility] Glucose [Mass/Vol] 331 mg/dL High 65 - 99 mg/dL [facility] Interpretation and review of laboratory results Abnormal [facility] Glucose [Mass/Vol] 209 mg/dL High 65 - 99 mg/dL [facility] Interpretation and review of laboratory results Abnormal [facility] Glucose [Mass/Vol] 306 mg/dL High 65 - 99 mg/dL [facility] Interpretation and review of laboratory results Abnormal [facility] Vancomycin Level, Randomon 0 06-28-2022 Vancomycin Random Date last dose 06.28.22 [facility] Vancomycin Random Dose amount 1250 [facility] Vancomycin Random Time last dose 415 [facility] Vancomycin Rm 25.9 ug/mL [facility] Comment on above: Higher trough serum vancomycin concentrations of 15-20 ug/mL are recommended for complicated infections such as bacteremia, endocarditis, osteomyelitis, meningitis, and hospital acquired pneumonia. [facility] Basic Metabolic Panel w/ Ref belle to MGon 06-27-2022 Anion gap [Moles/Vol] 10 mmol/L 9 - 17 mmol/L [facility] Calcium [Mass/Vol] 8.7 mg/dL 8.6 - 10. 4 mg/dL [facility] Chloride [Moles/Vol] 102 mmol/L 98 - 10 7 mmol/L [facility] CO2 [Moles/Vol] 25 mmol/L 20 - 31 mmol/L [facility] Creatinine [Mass/Vol] 1.31 mg/dL High 0.70 - 1.20 mg/dL [facility] GFR/1.73 sq M.predicted MDRD (S/P/Bld) [Vol rate/Area] - PINF [facility] Comment on above: These results are [...] 290 mg/dL High 70 - 99 mg/dL [facility] Interpretation and review of laboratory results Abnormal [facility] Potassium [Moles/Vol] 4.5 mmol/L 3.7 - 5.3 mmol/L [facility] Sodium [Moles/Vol] 137 mmol/L 135 - 144 mmol/L [facility] Urea nitrogen [Mass/Vol] 14 mg/dL 8 - 23 mg/dL [facility] Urea nitrogen/Creatinine (Bld) [Mass ratio] 11 9 - 20 [facility] CBC with Auto Differentialon 06-27-2022 Absolute Eos # 0.20 [facility] Absolute Lymph # 2.00 [facility] Absolute [place] # 0.50 [facility] Basophils (Bld) [#/Vol] 0.00 10*3/uL [facility] Basophils/100 WBC (Bld) 0 % 0 - 2 % B ON [facility] Differential Type YES [facility] Eosinophils/100 WBC (Bld) 3 % 0 - 5 % [facility] Hematocrit (Bld) [Volume fraction] 31.0 % Low 41 - 53 % [facility] Hemoglobin (Bld) [Mass/Vol] 10.4 g/dL Low 13.5 - 17.5 g/dL [facility] Interpretation and review of laboratory results Abnormal [facility] Lymphocytes/100 WBC (Bld) 34 % 13 - 44 % [facility] MCH (RBC) [Entitic mass] 30.6 pg 26 - 34 pg [facility] MCHC (RBC) [Mass/Vol] 33.7 g/dL 31 - 3 7 g/dL [facility] MCV (RBC) [Entitic vol] 91.0 fL 80 - 100 fL [facility] Monocytes/100 WBC (Bld) 8 % 5 - 9 % B ON [facility] Platelet distribution width (Bld) [Ratio] 13.9 % 12.1 - 15.2 % [facility] Platelets (Bld) [#/Vol] 334 10*3/uL [facility] RBC (Bld) [#/Vol] 3.40 10*6/uL Low 4.5 - 5.9 m/uL [facility] Segmented neutrophils/100 WBC (Bld) 55 % 39 - 75 % [facility] Segs Absolute 3.30 [facility] WBC (Bld) [#/Vol] 6.0 10*3/uL [facility] Glucose, Whole Bloodon 06-27 Glucose [Mass/Vol] 211 mg/dL High 65 - 99 mg/dL [facility] Interpretation and review of laboratory results Abnormal [facility] Glucose [Mass/Vol] 184 mg/dL High 65 - 99 mg/dL [facility] Interpretation and review of laboratory results Abnormal [facility] Glucose [Mass/Vol] 217 mg/dL High 65 - 99 mg/dL [facility] Interpretation and review of laboratory results Abnormal [facility] Glucose [Mass/Vol] 289 mg/dL High 65 - 99 mg/dL [facility] Interpretation and review of laboratory results Abnormal [facility] C-Reactive Proteinon 023 CRP High sensitivity method [Mass/Vol] 151.6 mg/L High 0.0 - 5.0 mg/L [facility] CBC with Auto Differentialon 06-26-2022 Absolute Eos # 0.10 [facility] Absolute Lymph # 1.50 [facility] Absolute [place] # 0.70 [facility] Basophils (Bld) [#/Vol] 0.00 10*3/uL [facility] Basophils/100 WBC (Bld) 0 % 0 - 2 % B ON [facility] Differential Type YES [facility] Eosinophils/100 WBC (Bld) 1 % 0 - 5 % [facility] Hematocrit (Bld) [Volume fraction] 31.9 % Low 41 - 53 % [facility] Hemoglobin (Bld) [Mass/Vol] 10.7 g/dL Low 13.5 - 17.5 g/dL [facility] Interpretation and review of laboratory results Abnormal [facility] Lymphocytes/100 WBC (Bld) 17 % 13 - 44 % [facility] MCH (RBC) [Entitic mass] 30.5 pg 26 - 34 pg [facility] MCHC (RBC) [Mass/Vol] 33.5 g/dL 31 - 3 7 g/dL [facility] MCV (RBC) [Entitic vol] 91.3 fL 80 - 100 fL [facility] Monocytes/100 WBC (Bld) 8 % 5 - 9 % B ON [facility] Platelet distribution width (Bld) [Ratio] 13.9 % 12.1 - 15.2 % [facility] Platelets (Bld) [#/Vol] 350 10*3/uL [facility] RBC (Bld) [#/Vol] 3.49 10*6/uL Low 4.5 - 5.9 m/uL [facility] Segmented neutrophils/100 WBC (Bld) 74 % 39 - 75 % [facility] Segs Absolute 6.50 [facility] WBC (Bld) [#/Vol] 8.8 10*3/uL [facility] CMPon 06-26-2022 Albumin [Mass/Vol] 3.7 g/dL 3.5 - 5.2 g/dL [facility] ALP [Catalytic activity/Vol] 129 U/L 40 - 129 U/L [facility] ALT [Catalytic activity/Vol] 17 U/L 5 - 41 U/L [facility] Anion gap [Moles/Vol] 14 mmol/L 9 - 17 mmol/L [facility] AST [Catalytic activity/Vol] 21 U/L NINF - 40 U/L [facility] Bilirubin [Mass/Vol] 0.6 mg/dL 0.3 - 1 .2 mg/dL [facility] Calcium [Mass/Vol] 8.9 mg/dL 8.6 - 10. 4 mg/dL [facility] Chloride [Moles/Vol] 94 mmol/L Low 98 - 10 7 mmol/L [facility] CO2 [Moles/Vol] 23 mmol/L 20 - 31 mmol/L [facility] Creatinine [Mass/Vol] 1.43 mg/dL High 0.70 - 1.20 mg/dL [facility] GFR/1.73 sq M.predicted MDRD (S/P/Bld) [Vol rate/Area] 56 mL/min/{1.73_m2} Low - PINF [facility] Comment on above: These results are [...] Critically high 70 - 9 9 mg/dL [facility] Potassium [Moles/Vol] 4.4 mmol/L 3.7 - 5.3 mmol/L [facility] Protein [Mass/Vol] 7.6 g/dL 6.4 - 8.3 g/dL [facility] Sodium [Moles/Vol] 131 mmol/L Low 135 - 144 mmol/L [facility] Urea nitrogen [Mass/Vol] 15 mg/dL 8 - 23 mg/dL [facility] Urea nitrogen/Creatinine (Bld) [Mass ratio] 10 9 - 20 [facility] COVID-19, Rapidon 06-26-2022 SARS-CoV-2 (COVID-19) RdRp gene NAKIA+probe Ql (Resp) Not detected Not Detected [facility] Comment on above: Rapid NAAT: The [...] management decisions. Fact sheet for Healthcare Providers: https://www.fda.gov/media/069461/download Fact sheet for Patients: https://www.fda.gov/media/571892/download Methodology: Isothermal Nucleic Acid Amplification Specimen Description .NASOPHARYNGEAL SWAB [facility] Glucose, Whole Bloodon 06-26 Glucose [Mass/Vol] 333 mg/dL High 65 - 99 mg/dL [facility] Interpretation and review of laboratory results Abnormal [facility] Glucose [Mass/Vol] 381 mg/dL High 65 - 99 mg/dL [facility] Interpretation and review of laboratory results Abnormal [facility] No Panel Informationon 06-26 Interpretation and review of laboratory results Abnormal [facility] Sedimentation Rateon 023 ESR (Bld) [Velocity] 49 mm/h High [facility] Interpretation and review of laboratory results Abnormal [facility] XR FOOT LEFT (MIN 3 VIEWS)on 06-26-2022 FINDINGS/IMPRESSION: 1. 8 mm area rarefaction in the medial articular aspect proximal portion of the distal phalanx great toe with associated skin ulcer and soft tissue swelling is more suspicious for osteomyelitis than previously. 2. No gas in the soft tissues. [facility] EXAM: XR FOOT LEFT (MIN 3 VIEWS) HISTORY: Reason for exam:->big toe infection COMPARISON: 06/21/2022. [facility] Primo Neely Jr., MD - [...] 2. No gas in the soft tissues. [employer] Work Phone: Radiology Study observation (narrative) [employer] Work Phone: XR FOOT LEFT (MIN 3 VIEWS)Or dered By: Primo Neely on 06-26-2022 [email or web address] Work Phone: C-Reactive Proteinon 023 CRP High sensitivity method [Mass/Vol] 73.2 mg/L High 0.0 - 5.0 mg/L [facility] [employer] CBC with Auto Differentialon 06-21-2022 Absolute Eos # 0.[address] [facility] [address] [facility] Absolute Lymph # 1.40 [facility] URS [employer] Absolute [place] # 0.50 [facility] Basophils (Bld) [#/Vol] 0.10 10*3/uL [facility] [employer] Basophils/100 WBC (Bld) 1 % 0 - 2 % B ON [email or web address] Differential Type YES [facility] [employer] Eosinophils/100 WBC (Bld) 2 % 0 - 5 % [facility] [employer] Hematocrit (Bld) [Volume fraction] 33.3 % Low 41 - 53 % [facility] [employer] Hemoglobin (Bld) [Mass/Vol] 11.3 g/dL Low 13.5 - 17.5 g/dL [facility] [employer] Interpretation and review of laboratory results Abnormal [facility] Lymphocytes/100 WBC (Bld) 20 % 13 - 44 % [facility] [employer] MCH (RBC) [Entitic mass] 30.7 pg 26 - 34 pg [facility] MCHC (RBC) [Mass/Vol] 33.9 g/dL 31 - 3 7 g/dL [facility] [employer] MCV (RBC) [Entitic vol] 90.7 fL 80 - 100 fL [facility] [employer] Monocytes/100 WBC (Bld) 7 % 5 - 9 % B ON [facility] [employer] Platelet distribution width (Bld) [Ratio] 14.1 % 12.1 - 15.2 % [facility] Platelets (Bld) [#/Vol] 283 10*3/uL [facility] RBC (Bld) [#/Vol] 3.67 10*6/uL Low 4.5 - 5.9 m/uL [facility] Segmented neutrophils/100 WBC (Bld) 70 % 39 - 75 % [facility] Segs Absolute 4.70 [facility] WBC (Bld) [#/Vol] 6.8 10*3/uL [facility] CMPon 06-21-2022 Albumin [Mass/Vol] 3.9 g/dL 3.5 - 5.2 g/dL [facility] ALP [Catalytic activity/Vol] 141 U/L High 40 - 129 U/L [facility] ALT [Catalytic activity/Vol] 20 U/L 5 - 41 U/L [facility] Anion gap [Moles/Vol] 12 mmol/L 9 - 17 mmol/L [facility] AST [Catalytic activity/Vol] 21 U/L NINF - 40 U/L [facility] Bilirubin [Mass/Vol] 0.7 mg/dL 0.3 - 1 .2 mg/dL [facility] Calcium [Mass/Vol] 9.2 mg/dL 8.6 - 10. 4 mg/dL [facility] Chloride [Moles/Vol] 97 mmol/L Low 98 - 10 7 mmol/L [facility] CO2 [Moles/Vol] 26 mmol/L 20 - 31 mmol/L [facility] Creatinine [Mass/Vol] 1.2 mg/dL 0.70 - 1.20 mg/dL [facility] GFR/1.73 sq M.predicted MDRD (S/P/Bld) [Vol rate/Area] - PINF [facility] Comment on above: These results are [...] 367 mg/dL High 70 - 99 mg/dL [facility] Potassium [Moles/Vol] 4.5 mmol/L 3.7 - 5.3 mmol/L [facility] Protein [Mass/Vol] 7.4 g/dL 6.4 - 8.3 g/dL [facility] Sodium [Moles/Vol] 135 mmol/L 135 - 144 mmol/L [facility] Urea nitrogen [Mass/Vol] 11 mg/dL 8 - 23 mg/dL [facility] Urea nitrogen/Creatinine (Bld) [Mass ratio] 9 9 - 20 [facility] No Panel Informationon 06-21 Interpretation and review of laboratory results Abnormal [facility] Sedimentation Rateon 023 ESR (Bld) [Velocity] 90 mm/h High [facility] Interpretation and review of laboratory results Abnormal [facility] XR FOOT LEFT (MIN 3 [...] toe. Recommendation: Consider 7-10 day follow-up films.. [facility] EXAM: XR FOOT LEFT (MIN 3 VIEWS) HISTORY: Reason for exam:->toe infection COMPARISON: None. [facility] Primo Neely Jr., MD - [...] toe. Recommendation: Consider 7-10 day follow-up films.. [employer]ACH TORRES [employer] Phone: Radiology Study observation (narrative) [employer]ACH YE [employer] Phone: XR FOOT LEFT (MIN 3 VIEWS)Or dered By: Primo Neely on 06-21-2022 [employer] Phone: VL LOWER EXTREMITY ARTERIAL SEGMENTAL PRESSURES W PPGon 04-16-2022 Primo Neely Jr., MD - 04/17/2022 [facility] Vascular Lower Arterial Plethysmography Procedure Patient Name KATHARINA WALSH Date of Study 04/16/2022 E Date of 1960 Gender Male Age 62 year(s) Race Room Number Corporate ID # [id number] Patient MR # [id number] Adjuster RT Kendell Interpreting Physician Tank Neely Referring [...] + Post Exercise Exercise Time: 0 sec. [employer] Phone: Radiology Study observation (narrative) [employer] Phone: VL LOWER EXTREMITY ARTERIAL SEGMENTAL PRESSURES W PPGOrdered By: Primo Neely on 04-16-2022 [employer] Phone: CHEMISTRYOrdered By: Kati Castillo on 04-02-2022 HbA1c (Bld) [Mass fraction] 10.4 % High <=5.9% [facility] [employer]SS MRI LUMBAR SPINE W WO GARTH Teresa 02-20-2022 1. There is grade 1 anterolisthesis [...] enhancement of the thecal sac is seen. [facility] CONSOLIDATED [place], King Vargas MD - 02/20/2022 HISTORY: The [...] appears most severe at the L1-L2 level. ZACH TORRES [employer] Work Phone: MRI LUMBAR SPINE W WO CONTRA STOrdered By: King Antonio on 02-20-2022 ZACH TORRES [employer] Phone: MRI LUMBAR SPINE W WO CONTRA STon 02-19-2022 Radiology Study observation (narrative) ZACH YE [employer] Work Phone: CBCon 12-04-2021 ABSOLUTE BAS 0.0 10*3/uL Normal 0.0-0.2 [facility] Comment on above: Performed By: #### M G, PT, CMPF, ACBC, PTT #### Testing performed at [address] [address] ABSOLUTE EOS 0.1 10*3/uL Normal 0.0-0.7 [facility] Comment on above: Performed By: #### M G, PT, CMPF, ACBC, PTT #### Testing performed at [address] [address] ABSOLUTE NEUTROPHIL COUNT 5.2 10*3/uL Normal 1.4-6.5 [facility] Comment on above: Performed By: #### M G, PT, CMPF, ACBC, PTT #### Testing performed at [address] [address] Basophils/100 WBC (Bld) 0.6 % Normal 0.0-2.0 [facility] Comment on above: Performed By: #### M G, PT, CMPF, ACBC, PTT #### Testing performed at [address] [address] DTYPE AUTO DIFF Normal [facility] Comment on above: Performed By: #### M G, PT, CMPF, ACBC, PTT #### Testing performed at [address] [address] Eosinophils/100 WBC (Bld) 1.8 % Normal 0.0-11.0 [facility] Comment on above: Performed By: #### M G, PT, CMPF, ACBC, PTT #### Testing performed at [address] [address] Lymphocytes (Bld) [#/Vol] 1.3 10*3/uL Normal 1.2-3.4 [facility] Comment on above: Performed By: #### M G, PT, CMPF, ACBC, PTT #### Testing performed at [address] [address] Lymphocytes/100 WBC (Bld) 18.6 % Low 20.0-55.0 [facility] Comment on above: Performed By: #### M G, PT, CMPF, ACBC, PTT #### Testing performed at [address] [address] Monocytes (Bld) [#/Vol] 0.3 10*3/uL Normal 0.0-0.7 [facility] Comment on above: Performed By: #### M G, PT, CMPF, ACBC, PTT #### Testing performed at [address] [address] Monocytes/100 WBC (Bld) 4.9 % Normal 0.0-10.0 [facility] Comment on above: Performed By: #### M G, PT, CMPF, ACBC, PTT #### Testing performed at [address] [address] Neutrophils/100 WBC (Bld) 74.1 % Normal 37.0-75.0 [facility] Comment on above: Performed By: #### M G, PT, CMPF, ACBC, PTT #### Testing performed at [address] [place] [address] Erythrocyte distribution width (RBC) [Ratio] 14.1 % Normal 11.5-14.5 [facility] Comment on above: Performed By: #### M G, PT, CMPF, ACBC, PTT #### Testing performed at [address] [place] [address] Hematocrit (Bld) [Volume fraction] 36.3 % Low 42.0-52.0 [facility] Comment on above: Performed By: #### M G, PT, CMPF, ACBC, PTT #### Testing performed at [address] [address] Hemoglobin (Bld) [Mass/Vol] 12.1 g/dL Low 14.0-18.0 [facility] Comment on above: Performed By: #### M G, PT, CMPF, ACBC, PTT #### Testing performed at [address] [address] MCH (RBC) [Entitic mass] 30.3 pg Normal 26.0-35.0 [facility] Comment on above: Performed By: #### M G, PT, CMPF, ACBC, PTT #### Testing performed at [address] [address] MCHC (RBC) [Mass/Vol] 33.3 g/dL Normal 27.0-37.0 [facility] Comment on above: Performed By: #### M G, PT, CMPF, ACBC, PTT #### Testing performed at [address] [address] MCV (RBC) [Entitic vol] 91.0 fL Normal 80.0-100.0 [facility] Comment on above: Performed By: #### M G, PT, CMPF, ACBC, PTT #### Testing performed at [address] [address] Platelet mean volume (Bld) [Entitic vol] 7.3 fL Low 7.4-11.0 [facility] Comment on above: Performed By: #### M G, PT, CMPF, ACBC, PTT #### Testing performed at [address] [address] Platelets (Bld) [#/Vol] 221 10*3/uL Normal 130.0-400.0 [facility] Comment on above: Performed By: #### M G, PT, CMPF, ACBC, PTT #### Testing performed at [address] [address] RBC (Bld) [#/Vol] 3.99 10*6/uL Low 4.0-6.1 [facility] Comment on above: Performed By: #### M G, PT, CMPF, ACBC, PTT #### Testing performed at [address] [address] WBC (Bld) [#/Vol] 7.0 10*3/uL Normal 3.6-11.0 [facility] Comment on above: Performed By: #### M G, PT, CMPF, ACBC, PTT #### Testing performed at [address] [address] CMP FASTINGon 12-04-2021 A:G RATIO 1.4 RATIO Normal 1.3-2.2 [facility] Comment on above: Performed By: #### M G, PT, CMPF, ACBC, PTT #### [place] [address] ALBUMIN 4.4 G/dl Normal 3.5-5.0 [facility] Comment on above: Performed By: #### M G, PT, CMPF, ACBC, PTT #### Testing performed at [address] [address] ALP [Catalytic activity/Vol] 74 U/L Normal 38-126 [facility] Comment on above: Performed By: #### M G, PT, CMPF, ACBC, PTT #### Testing performed at [address] [address] ALT [Catalytic activity/Vol] 33 U/L Normal 17-63 [facility] Comment on above: Performed By: #### M G, PT, CMPF, ACBC, PTT #### Testing performed at [address] [address] AST [Catalytic activity/Vol] 35 U/L Normal 15-41 [facility] Comment on above: Performed By: #### M G, PT, CMPF, ACBC, PTT #### Testing performed at [address] [address] Bilirubin [Mass/Vol] 1.1 mg/dL Normal 0.2-1.2 [facility] Comment on above: Performed By: #### M G, PT, CMPF, ACBC, PTT #### Testing performed at [address] [address] Calcium [Mass/Vol] 9.4 mg/dL Normal 8.4-10.2 [facility] Comment on above: Performed By: #### M G, PT, CMPF, ACBC, PTT #### Testing performed at [address] [address] Chloride [Moles/Vol] 99 mmol/L Normal 98-107 [facility] Comment on above: Performed By: #### M G, PT, CMPF, ACBC, PTT #### Testing performed at [address] [address] CO2 [Moles/Vol] 25 mmol/L Normal 22-30 [facility] Comment on above: Performed By: #### M G, PT, CMPF, ACBC, PTT #### Testing performed at [address] [address] Creatinine [Mass/Vol] 1.44 mg/dL High 0.66-1.25 [facility] Comment on above: Performed By: #### M G, PT, CMPF, ACBC, PTT #### Testing performed at [address] [address] EST. GFR, 64 ml/min/1.73sq.m [facility] Comment on above: Performed By: #### M G, PT, CMPF, ACBC, PTT #### Testing performed at [address] [address] EST. GFR,Non 53 ml/min/1.73sq.m [facility] Comment on above: Performed By: #### M G, PT, CMPF, ACBC, PTT #### Testing performed at [address] [address] GFR Information Average GFR for 60-69 years old = 85. [facility] Comment on above: Result Comment: Ict Business Analyst sarah Kidney disease, GFR = <60. Kidney failure, GFR = <15. The GFR estimate is not adjusted for extreme body surface area or acute process, nor has it been validated for women or ethnic groups other than and . Performed By: #### M G, PT, CMPF, ACBC, PTT #### Testing performed at [address] [address] Glucose [Mass/Vol] 234 mg/dL High 70-100 [facility] Comment on above: Result Comment: NORMAL <100 mg/dL PREDIABETES 101-126 mg/dL DIABETES 126 mg/dL or higher Performed By: #### M G, PT, CMPF, ACBC, PTT #### Testing performed at [address] [address] Potassium [Moles/Vol] 4.8 mmol/L Normal 3.5-5.1 [facility] Comment on above: Performed By: #### M G, PT, CMPF, ACBC, PTT #### Testing performed at [address] [address] Protein [Mass/Vol] 7.5 g/dL Normal 6.3-8.2 [facility] Comment on above: Performed By: #### M G, PT, CMPF, ACBC, PTT #### Testing performed at [address] [address] Sodium [Moles/Vol] 137 mmol/L Normal 136-145 [facility] Comment on above: Performed By: #### M G, PT, CMPF, ACBC, PTT #### Testing performed at [address] [address] Urea nitrogen [Mass/Vol] 16 mg/dL Normal 7-20 [facility] Comment on above: Performed By: #### M G, PT, CMPF, ACBC, PTT #### Testing performed at [address] [address] [address] ABDOMEN/PELVIS WITH CONTR Iker 12-04-2021 CT [...] Diffuse fatty infiltration of the liver. Normal [facility] CT CHEST WITH CONTRASTon CT [...] or osseous fractures in the chest. Normal [facility] CT HEAD WITHOUT CONTRASTon 0 [...] hemorrhage, mass effect, or interval change. Normal [facility] CT SPINE CERVICAL WITHOUT CO [...] as detailed above. 4. Pulmonary emphysema. Normal [facility] MAGNESIUMon 12-04-2021 Magnesium [Mass/Vol] 1.4 mg/dL Low 1.6-2.3 [facility] Comment on above: Performed By: #### M G, PT, CMPF, ACBC, PTT #### Testing performed at [address] [address] PROTIMEon 12-04-2021 INR Coag (PPP) [Relative time] 0.99 {INR} Normal 0.85-1.10 [facility] Comment on above: Result Comment: 2.0-3.0 THERAPEUTIC RANGE 2.5-3.5 MECHANICAL VALVE RANGE Performed By: #### M G, PT, CMPF, ACBC, PTT #### Testing performed at [address] [address] PT Coag (PPP) [Time] 13.2 s Normal 11.8-14.4 [facility] Comment on above: Performed By: #### M G, PT, CMPF, ACBC, PTT #### Testing performed at [address] [address] PTTon 12-04-2021 aPTT Coag (Bld) [Time] 27.0 s Normal 22.4-34.7 [facility] Comment on above: Result Comment: CARDIAC AND PE/DVT THERAPUTIC RANGE 69-97 SEC VASCULAR/THREATENED LIMB THERAPUTIC RANGE 80-112 SEC Performed By: #### M G, PT, CMPF, ACBC, PTT #### Testing performed at [address] [address] TROPONIN I, HIGH SENSITIVITY on 12-04-2021 TROPONIN I, HIGH SENSITIVITY 3 pg/mL Normal 0-20 [facility] Comment on above: Result Comment: Indeterminant: >12 to 100 pg/mL female >20 to 100 pg/mL male Indicative of myocardial injury. Serial sampling is recommended, a change of greater than or equal to 20 pg/mL is indicative of acute coronary syndrome. Performed By: #### T KEIRA #### Testing performed at [address] [address] Comprehensive Metabolic Pane dayo 11-17-2021 Albumin [Mass/Vol] 4.5 g/dL 3.5 - 5.2 g/dL [facility] ALP (Bld) [Catalytic activity/Vol] 93 U/L 40 - 129 U/L [facility] ALT [Catalytic activity/Vol] 30 U/L 5 - 41 U/L [facility] Anion gap [Moles/Vol] 11 mmol/L 9 - 17 mmol/L [facility] AST [Catalytic activity/Vol] 34 U/L NINF - 40 U/L [facility] Bilirubin [Mass/Vol] 0.6 mg/dL 0.3 - 1 .2 mg/dL [facility] Calcium [Mass/Vol] 10.1 mg/dL 8.6 - 10. 4 mg/dL [facility] Chloride [Moles/Vol] 102 mmol/L 98 - 10 7 mmol/L [facility] CO2 [Moles/Vol] 26 mmol/L 20 - 31 mmol/L [facility] Creatinine [Mass/Vol] 1.27 mg/dL High 0.7 - 1.2 mg/dL [facility] Free PSA/Total PSA [Mass fraction] 7.4 g/dL 6.4 - 8.3 g/dL [facility] GFR >60 60 - PI NF mL/min [facility] GFR Non- 58 mL/min Low 60 - PINF mL/min [facility] GFR/1.73 sq M.predicted MDRD (S/P/Bld) [Vol rate/Area] [facility] Comment on above: Average GFR for 60-6 9 years old: 85 mL/min/1.73sq m Chronic Kidney Disease: <60 mL/min/1.73sq m Kidney failure: <15 mL/min/1.73sq m eGFR calculated using average adult body mass. Additional eGFR calculator available at: http://www.CollegeHumor/multiple_crcl_2012.htm Glucose [Mass/Vol] 112 mg/dL High 70 - 99 mg/dL [facility] [employer] Interpretation and review of laboratory results Abnormal [facility] Potassium [Moles/Vol] 4.3 mmol/L 3.7 - 5.3 mmol/L [facility] Sodium [Moles/Vol] 139 mmol/L 135 - 144 mmol/L [facility] [employer] Urea nitrogen (BldV) [Mass/Vol] 22 mg/dL 8 - 23 mg/dL [facility] [employer] Urea nitrogen/Creatinine (Bld) [Mass ratio] 17 9 - [address] [facility] Hemoglobin A1Con 11-17-2021 Glucose [Mass/Vol] 174 mg/dL [facility] [employer] Comment on above: The ADA and AACC rec ommend providing the estimated average glucose result to permit better patient understanding of their HBA1c result. HbA1c (Bld) [Mass fraction] 7.7 % High 4 - 6 % [facility] Interpretation and review of laboratory results Abnormal [facility] Lipid Panelon 11-17-2021 Cholesterol [Mass/Vol] 220 mg/dL High NINF - 200 mg/dL [facility] [employer] Comment on above: Cholesterol Guidelines: <200 Desirable 200-240 Borderline >240 Undesirable Cholesterol in HDL [Mass/Vol] 35 mg/dL Low 40 - PINF mg/dL [facility] Comment on above: HDL Guidelines: <40 Undesirable 40-59 Borderline >59 Desirable Cholesterol in LDL [Mass/Vol] 114 mg/dL 0 - 130 mg/dL [facility] [employer] Comment on above: LDL Guidelines: <100 Desirable 100-129 Near to/above Desirable 130-159 Borderline >159 Undesirable Direct (measured) LDL and calculated LDL are not interchangeable tests. Cholesterol.total/Choles terol in HDL [Mass ratio] 6.3 {ratio} High NINF - 5 [facility] Interpretation and review of laboratory results Abnormal [facility] Triglyceride [Mass/Vol] 356 mg/dL High NINF - 150 mg/dL [facility] Comment on above: Triglyceride Guidelines: <150 Desirable 150-199 Borderline 200-499 High >499 Very high Based on AHA Guidelines for fasting triglyceride, December 2011. [facility] Patient Fasting?on 2 Patient Fasting? YES [facility] CHEMISTRYOrdered By: Morgan pugh on 06-05-2021 HbA1c (Bld) [Mass fraction] 11.8 % High <=5.9% [facility] [employer] COVID-19, Rapidon 04-18-2021 SARS-CoV-2 (COVID-19) RNA NAKIA+probe Ql (Unsp spec) Not detected Not Detected [facility] Comment on above: Rapid NAAT: The specimen [...] management decisions. Fact sheet for Healthcare Providers: https://www.fda.gov/media/740531/download Fact sheet for Patients: https://www.fda.gov/media/647014/download Methodology: Isothermal Nucleic Acid Amplification Specimen Description .NASOPHARYNGEAL SWAB [facility] Strep Screen Group A Throato n 04-18-2021 S. pyogenes Ag IA Ql (Unsp spec) Rapid Strep A negative. A negative Rapid Group A Strep Screen result does not rule out the possibility of Group A Streptococci in the specimen. A Group A Strep DNA test is available upon request. [facility] Special Requests NOT REPORTED [facility] Specimen Description .[facility] MRI FOOT RIGHT W WO CONTRAST Ordered [...] 22 x 18 x 11 mm noted. [employer] Phone: MRI OF THE RIGHT FOOT WITH [...] 22 x 18 x 11 mm noted. [employer] Phone: Cedric, Mhpn Incoming Radiant Results From [employer] - 12/14/2020 11:20 AM EDT MRI OF [...] 22 x 18 x 11 mm noted. [employer] Phone: [employer] Phone: Basic Metabolic Panel w/ Ref belle to MGOrdered By: Festus Tolentino on 11-30-2020 Anion gap [Moles/Vol] 15 mmol/L 9 - 17 mmol/L [employer] Phone: Calcium [Mass/Vol] 9.4 mg/dL 8.6 - 10. 4 mg/dL [employer] Phone: Chloride [Moles/Vol] 91 mmol/L Low 98 - 10 7 mmol/L [employer] Phone: CO2 [Moles/Vol] 23 mmol/L 20 - 31 mmol/L [employer] Phone: Creatinine [Mass/Vol] 1.05 mg/dL 0.70 - 1.20 mg/dL [employer] Phone: GFR >60 >60 mL/min [employer] Phone: GFR Non- >60 >60 mL/min [employer] Phone: GFR/1.73 sq M.predicted MDRD (S/P/Bld) [Vol rate/Area] [employer] Phone: Comment on above: Average GFR for 50-5 9 years old: 93 mL/min/1.73sq m Chronic Kidney Disease: <60 mL/min/1.73sq m Kidney failure: <15 mL/min/1.73sq m eGFR calculated using average adult body mass. Additional eGFR calculator available at: http://www.CollegeHumor/multiple_crcl_2012.htm GFR/1.73 sq M.predicted MDRD (S/P/Bld) [Vol rate/Area] NOT REPORTED [employer] Phone: Glucose [Mass/Vol] 612 mg/dL Critically high 70 - 9 9 mg/dL [employer] Phone: Interpretation and review of laboratory results Abnormal [employer] Phone: Potassium [Moles/Vol] 4.9 mmol/L 3.7 - 5.3 mmol/L [employer] Phone: Sodium [Moles/Vol] 129 mmol/L Low 135 - 144 mmol/L [employer] Phone: Urea nitrogen (BldV) [Mass/Vol] 19 mg/dL 6 - 20 mg/dL [employer] Work Phone: Urea nitrogen/Creatinine (Bld) [Mass ratio] 18 [employer] Work Phone: [employer] Work Phone: CBC Auto DifferentialOrdered By: Festus Tolentino on 11-30-2020 Absolute Eos # 0.10 [employer] [facility] Work Phone: Absolute Immature Granulocyte NOT REPORTED [employer] Work Phone: Absolute Lymph # 1.30 [employer] [facility] Work Phone: Absolute [place] # 0.40 [employer] [facility] Work Phone: Basophils (Bld) [#/Vol] 0.00 10*3/uL [employer] Work Phone: Basophils/100 WBC (Bld) 0 % 0 - 2 % M [employer] Phone: Differential Type YES [employer] [facility] Work Phone: Eosinophils/100 WBC (Bld) 1 % 0 - 5 % [employer] Phone: Hematocrit (Bld) [Volume fraction] 36.9 % Low 41 - 53 % [employer] Phone: Hemoglobin.gastrointesti nal spec 1 Ql (Stl) 12.5 g/dL Low 13.5 - 17.5 g/dL [employer] Phone: Immature Granulocytes NOT REPORTED 0 % M [employer] Phone: Interpretation and review of laboratory results Abnormal [employer] Phone: Lymphocytes/100 WBC (Bld) 15 % 13 - 44 % [employer] Phone: MCH (RBC) [Entitic mass] 30.0 pg 26 - 34 pg [employer] Work Phone: MCHC (RBC) [Mass/Vol] 33.9 g/dL 31 - 3 7 g/dL [employer] Work Phone: MCV (RBC) [Entitic vol] 88.4 fL 80 - 100 fL [employer] Work Phone: Monocytes/100 WBC (Bld) 5 % 5 - 9 % M [facility] [employer] Work Phone: NRBC Automated NOT REPORTED per 100 WBC [employer] Work Phone: Platelet distribution width (Bld) [Ratio] 13.4 % 12.1 - 15.2 % [facility] Phone: Platelet Estimate NOT REPORTED [facility] Phone: Platelet mean volume (Bld) [Entitic vol] NOT REPORTED 6.0 - 12.0 fL [employer] Work Phone: Platelets (Bld) [#/Vol] 278 10*3/uL [employer] Phone: RBC (Bld) [#/Vol] 4.18 10*6/uL Low 4.5 - 5.9 m/uL [facility] Work Phone: RBC (Bld) [#/Vol] NOT REPORTED [facility] Phone: Segmented neutrophils/100 WBC (Bld) 79 % High 39 - 75 % [employer] Work Phone: Segs Absolute 6.80 High [employer] Work Phone: WBC (Bld) [#/Vol] 8.6 10*3/uL [employer] Work Phone: WBC (Bld) [#/Vol] NOT REPORTED [employer] Phone: [employer] Work Phone: XR FOOT RIGHT (MIN 3 VIEWS)O rdered By: Festus Tolentino on 09-22-2021 Subacute fractures consistent with neuropathic foot, 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 [employer] Phone: EXAM: XR FOOT RIGHT (MIN 3 VIEWS) HISTORY: Reason for exam:->?infection (red/warm/swollen) , DM pt w/ Hx 3+5th toe removal, per pt known 4 fx in foot from xrays taken at foot/ankle in [place], [place] COMPARISON: Right foot 03/20/2020. TECHNIQUE: 3 views right foot. FINDINGS: Healing subacute fractures with periosteal new bone formation proximal third and fourth metatarsal shafts. Healing fracture fifth metatarsal, distal third, with mild overlap of fracture fragments. On the lateral view there is fragmentation of the medial cuneiform. Diffuse soft tissue swelling. No evidence of osteomyelitis. [employer] Phone: Cedric, Mhpn Incoming Radiant Results From [facility] - 11/30/2020 5:11 PM EDT EXAM: XR FOOT RIGHT (MIN 3 VIEWS) HISTORY: Reason for exam:->?infection (red/warm/swollen) , DM pt w/ Hx 3+5th toe removal, per pt known 4 fx in foot from xrays taken at foot/ankle in [place], [place] COMPARISON: Right foot 03/20/2020. TECHNIQUE: 3 [...] with neuropathic foot, 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 [employer] Phone: [employer] Phone: Comprehensive Metabolic Pane lOrdered By: Sara Lester on 11-15-2020 Albumin [Mass/Vol] 4 g/dL 3.5 - 5.2 g/dL [employer] Phone: Albumin/Globulin Ratio NOT REPORTED [employer] Phone: ALP (Bld) [Catalytic activity/Vol] 197 U/L High 40 - 129 U/L [employer] Phone: ALT [Catalytic activity/Vol] 23 U/L 5 - 41 U/L [employer] Phone: Anion gap [Moles/Vol] 13 mmol/L 9 - 17 mmol/L [employer] Phone: AST [Catalytic activity/Vol] 21 U/L <40 [employer] Phone: Bilirubin [Mass/Vol] 0.71 mg/dL 0.30 - 1.20 mg/dL [employer] Phone: Calcium [Mass/Vol] 9.4 mg/dL 8.6 - 10. 4 mg/dL [employer] Phone: Chloride [Moles/Vol] 94 mmol/L Low 98 - 10 7 mmol/L [employer] Phone: CO2 [Moles/Vol] 23 mmol/L 20 - 31 mmol/L [employer] Phone: Creatinine [Mass/Vol] 1.03 mg/dL 0.70 - 1.20 mg/dL [employer] Phone: Free PSA/Total PSA [Mass fraction] 7.4 g/dL 6.4 - 8.3 g/dL [employer] Phone: GFR >60 >60 mL/min [employer] Phone: GFR Non- >60 >60 mL/min [employer] Phone: GFR/1.73 sq M.predicted MDRD (S/P/Bld) [Vol rate/Area] [employer] Phone: Comment on above: Average GFR for 50-5 9 years old: 93 mL/min/1.73sq m Chronic Kidney Disease: <60 mL/min/1.73sq m Kidney failure: <15 mL/min/1.73sq m eGFR calculated using average adult body mass. Additional eGFR calculator available at: http://www.CollegeHumor/multiple_crcl_2012.htm GFR/1.73 sq M.predicted MDRD (S/P/Bld) [Vol rate/Area] NOT REPORTED [employer] Phone: Glucose [Mass/Vol] 514 mg/dL Critically high 70 - 9 9 mg/dL [employer] Phone: Interpretation and review of laboratory results Abnormal [employer] Phone: Potassium [Moles/Vol] 4.6 mmol/L 3.7 - 5.3 mmol/L [employer] Phone: Sodium [Moles/Vol] 130 mmol/L Low 135 - 144 mmol/L [employer] Phone: Urea nitrogen (BldV) [Mass/Vol] 13 mg/dL 6 - 20 mg/dL [employer] Phone: Urea nitrogen/Creatinine (Bld) [Mass ratio] 13 [employer] Phone: [employer] Phone: Sedimentation RateOrdered By : Sara Lester on 11-15-2020 Interpretation and review of laboratory results Abnormal [employer] Phone: Sed Rate 58 mm High 0 - 20 mm [employer] Phone: [employer] Phone: COVID-19, Rapidon 05-16-2020 SARS-CoV-2, Rapid Not Detected Not Detected [employer] Phone: Comment on above: Rapid NAAT: The [...] management decisions. Fact sheet for Healthcare Providers: https://www.TimeBridge.gov/media/699456/download Fact sheet for Patients: https://www.TimeBridge.gov/media/209094/download Methodology: Isothermal Nucleic Acid Amplification Specimen Description .NASOPHARYNGEAL SWAB [employer] Phone: Glucose, Whole Bloodon 05-16 Glucose [Mass/Vol] 120 mg/dL High 65 - 99 mg/dL [employer] Phone: Interpretation and review of laboratory results Abnormal [employer] Phone: Basic Metabolic Panelon Anion gap [Moles/Vol] 14 mmol/L 9 - 17 mmol/L [employer] Phone: Bun/Cre Ratio 15 [employer] Work Phone: Calcium [Mass/Vol] 10.0 mg/dL 8.6 - 10. 4 mg/dL [employer] Phone: Chloride [Moles/Vol] 98 mmol/L 98 - 10 7 mmol/L [employer] Phone: CO2 [Moles/Vol] 22 mmol/L 20 - 31 mmol/L [employer] Phone: Creatinine [Mass/Vol] 1.08 mg/dL 0.7 - 1.2 mg/dL [employer] Phone: GFR >60 >60 mL/min [employer] Phone: GFR Non- >60 >60 mL/min [employer] Phone: GFR/1.73 sq M predicted among non-blacks MDRD (S/P/Bld) [Vol rate/Area] NOT REPORTED [employer] Phone: GFR/1.73 sq M predicted among non-blacks MDRD (S/P/Bld) [Vol rate/Area] [employer] Phone: Comment on above: Average GFR for 50-5 9 years old: 93 mL/min/1.73sq m Chronic Kidney Disease: <60 mL/min/1.73sq m Kidney failure: <15 mL/min/1.73sq m eGFR calculated using average adult body mass. Additional eGFR calculator available at: http://www.CollegeHumor/multiple_crcl_2012.htm Glucose [Mass/Vol] 227 mg/dL High 70 - 99 mg/dL [employer] Phone: Interpretation and review of laboratory results Abnormal [employer] Phone: Potassium [Moles/Vol] 3.5 mmol/L Low 3.7 - 5.3 mmol/L [employer] Phone: Sodium [Moles/Vol] 134 mmol/L Low 135 - 144 mmol/L [employer] Phone: Urea nitrogen [Mass/Vol] 16 mg/dL 6 - 20 mg/dL [employer] Phone: CBCon 05-13-2020 Erythrocyte distribution width (RBC) [Ratio] 12.4 % 12.1 - 15.2 % [employer] Phone: Hematocrit (Bld) [Volume fraction] 35.0 % Low 41 - 53 % [employer] Phone: Hemoglobin (Bld) [Mass/Vol] 11.9 g/dL Low 13.5 - 17.5 g/dL [employer] Phone: Interpretation and review of laboratory results Abnormal [employer] Phone: MCH (RBC) [Entitic mass] 29.2 pg 26 - 34 pg [employer] Phone: MCHC (RBC) [Mass/Vol] 34.0 g/dL 31 - 3 7 g/dL [employer] Phone: MCV (RBC) [Entitic vol] 86.0 fL 80 - 100 fL [employer] Phone: Platelet mean volume (Bld) [Entitic vol] NOT REPORTED fL [employer] Phone: Platelets (Bld) [#/Vol] 410 10*3/uL [employer] Phone: RBC (Bld) [#/Vol] 4.07 10*6/uL Low 4.5 - 5.9 m/uL [employer] Phone: WBC (Bld) [#/Vol] NOT REPORTED per 100 WBC [employer] Phone: WBC (Bld) [#/Vol] 9.4 10*3/uL [employer] Phone: Comprehensive Metabolic Pane dayo 05-13-2020 Albumin [Mass/Vol] 4.1 g/dL 3.5 - 5.2 g/dL [employer] Phone: Albumin/Globulin [Mass ratio] NOT REPORTED [employer] Phone: ALP [Catalytic activity/Vol] 129 U/L 40 - 129 U/L [employer] Phone: ALT [Catalytic activity/Vol] 22 U/L 5 - 41 U/L [employer] Phone: Anion gap [Moles/Vol] 13 mmol/L 9 - 17 mmol/L [employer] Phone: AST [Catalytic activity/Vol] 22 U/L <40 [employer] Phone: Bilirubin Ql (U) 0.37 mg/dL 0.3 - 1.2 mg/dL [employer] Phone: Bun/Cre Ratio 14 [employer] Work Phone: Calcium [Mass/Vol] 9.8 mg/dL 8.6 - 10. 4 mg/dL [employer] Phone: Chloride [Moles/Vol] 97 mmol/L Low 98 - 10 7 mmol/L [employer] Phone: CO2 [Moles/Vol] 23 mmol/L 20 - 31 mmol/L [employer] Phone: Creatinine [Mass/Vol] 1.11 mg/dL 0.7 - 1.2 mg/dL [employer] Phone: GFR >60 >60 mL/min [employer] Phone: GFR Non- >60 >60 mL/min [employer] Phone: GFR/1.73 sq M predicted among non-blacks MDRD (S/P/Bld) [Vol rate/Area] [employer] Phone: Comment on above: Average GFR for 50-5 9 years old: 93 mL/min/1.73sq m Chronic Kidney Disease: <60 mL/min/1.73sq m Kidney failure: <15 mL/min/1.73sq m eGFR calculated using average adult body mass. Additional eGFR calculator available at: http://www.CollegeHumor/multiple_crcl_2012.htm GFR/1.73 sq M predicted among non-blacks MDRD (S/P/Bld) [Vol rate/Area] NOT REPORTED [employer] Phone: Glucose [Mass/Vol] 226 mg/dL High 70 - 99 mg/dL [employer] Phone: Interpretation and review of laboratory results Abnormal [employer] Phone: Potassium [Moles/Vol] 3.5 mmol/L Low 3.7 - 5.3 mmol/L [employer] Phone: Protein [Mass/Vol] 8.2 g/dL 6.4 - 8.3 g/dL [employer] Phone: Sodium [Moles/Vol] 133 mmol/L Low 135 - 144 mmol/L [employer] Phone: Urea nitrogen [Mass/Vol] 15 mg/dL 6 - 20 mg/dL [employer] Phone: Hemoglobin A1Con 05-13-2020 Glucose [Mass/Vol] 286 mg/dL [employer] Phone: Comment on above: The ADA and AACC rec ommend providing the estimated average glucose result to permit better patient understanding of their HBA1c result. HbA1c (Bld) [Mass fraction] 11.6 % High 4 - 6 % [employer] Phone: Interpretation and review of laboratory results Abnormal [employer] Phone: Lipid Panelon 05-13-2020 Cholesterol [Mass/Vol] 137 mg/dL <200 [employer] Phone: Comment on above: Cholesterol Guidelines: <200 Desirable 200-240 Borderline >240 Undesirable Cholesterol in HDL [Mass/Vol] 32 mg/dL Low >40 [employer] Phone: Comment on above: HDL Guidelines: <40 Undesirable 40-59 Borderline >59 Desirable Cholesterol in LDL [Mass/Vol] 62 mg/dL 0 - 130 mg/dL [employer] Phone: Comment on above: LDL Guidelines: <100 Desirable 100-129 Near to/above Desirable 130-159 Borderline >159 Undesirable Direct (measured) LDL and calculated LDL are not interchangeable tests. Cholesterol in VLDL [Mass/Vol] NOT REPORTED High 1 - 30 mg/dL [employer] Phone: Cholesterol.total/Choles terol in HDL [Mass ratio] 4.3 {ratio} <5 [employer] Phone: Interpretation and review of laboratory results Abnormal [employer] Phone: Triglyceride [Mass/Vol] 215 mg/dL High <150 [facility]: Comment on above: Triglyceride Guidelines: <150 Desirable 150-199 Borderline 200-499 High >499 Very high Based on AHA Guidelines for fasting triglyceride, December 2011. Microalbumin, Uron 1 Albumin/Creatinine DL <= 20 mg/L (24H U) [Mass ratio] <12 <21 mg/L [employer] Phone: Albumin/Creatinine DL <= 20 mg/L (U) [Ratio] CANNOT BE CALCULATED <17 mcg/mg creat [employer] Phone: Creatinine [Mass/Vol] 20.6 mg/dL Low 39 - 2 59 mg/dL [employer] Phone: Interpretation and review of laboratory results Abnormal [employer] Phone: Culture, Blood 1on 1 Culture NO GROWTH 6 DAYS [place], [place] Special Requests 10 ml iv start [place], [place] Specimen Description .BLOOD [facility] Glucose, Whole Bloodon 03-26 Glucose [Mass/Vol] 254 mg/dL High 65 - 99 mg/dL [place] Interpretation and review of laboratory results Abnormal [place] Glucose [Mass/Vol] 160 mg/dL High 65 - 99 mg/dL [place] Interpretation and review of laboratory results Abnormal [place] Glucose, Whole Bloodon 03-25 Glucose [Mass/Vol] 198 mg/dL High 65 - 99 mg/dL [place] Interpretation and review of laboratory results Abnormal [place] Glucose [Mass/Vol] 321 mg/dL High 65 - 99 mg/dL [place] Interpretation and review of laboratory results Abnormal [place] Glucose [Mass/Vol] 162 mg/dL High 65 - 99 mg/dL [place] Interpretation and review of laboratory results Abnormal [place] Glucose [Mass/Vol] 181 mg/dL High 65 - 99 mg/dL [place] Interpretation and review of laboratory results Abnormal [place] Basic Metabolic Panelon 03-11 Anion gap [Moles/Vol] 10 mmol/L 9 - 17 mmol/L [place] Bun/Cre Ratio 11 [place] Calcium [Mass/Vol] 9.1 mg/dL 8.6 - 10. 4 mg/dL [place] Chloride [Moles/Vol] 100 mmol/L 98 - 10 7 mmol/L [place] CO2 [Moles/Vol] 27 mmol/L 20 - 31 mmol/L [place] Creatinine [Mass/Vol] 0.84 mg/dL 0.7 - 1.2 mg/dL [place] GFR >60 >60 mL/min [place] GFR Non- >60 >60 mL/min [place] GFR/1.73 sq M predicted among non-blacks MDRD (S/P/Bld) [Vol rate/Area] NOT REPORTED [place] GFR/1.73 sq M predicted among non-blacks MDRD (S/P/Bld) [Vol rate/Area] [place] Comment on above: Average GFR for 50-5 9 years old: 93 mL/min/1.73sq m Chronic Kidney Disease: <60 mL/min/1.73sq m Kidney failure: <15 mL/min/1.73sq m eGFR calculated using average adult body mass. Additional eGFR calculator available at: http://www.CollegeHumor/multiple_crcl_2011.htm Glucose [Mass/Vol] 222 mg/dL High 70 - 99 mg/dL [place] Interpretation and review of laboratory results Abnormal [place] Potassium [Moles/Vol] 4.0 mmol/L 3.7 - 5.3 mmol/L [place] Sodium [Moles/Vol] 137 mmol/L 135 - 144 mmol/L [place] Urea nitrogen [Mass/Vol] 9 mg/dL 6 - 20 mg/dL [place] Glucose, Whole Bloodon 03-24 Glucose [Mass/Vol] 255 mg/dL High 65 - 99 mg/dL [place] Interpretation and review of laboratory results Abnormal [place] Glucose [Mass/Vol] 262 mg/dL High 65 - 99 mg/dL [place] Interpretation and review of laboratory results Abnormal [place] Glucose [Mass/Vol] 208 mg/dL High 65 - 99 mg/dL [place] Interpretation and review of laboratory results Abnormal [place] Glucose [Mass/Vol] 184 mg/dL High 65 - 99 mg/dL [place] Interpretation and review of laboratory results Abnormal [place] Surgical Pathologyon 021 Surgical Pathology Report -- Diagnosis -- 1. 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 2. RIGHT FIFTH TOE AMPUTATION: CHRONIC ACTIVE ULCER WITH ACUTE SUPPURATIVE INFLAMMATION, BONE NECROSIS AND REACTIVE BONE CHANGES. Aida Beckford Electronically Signed Out ajb/03/24/2020 Clinical Information Pre-op Diagnosis: OSTEOMYELITIS, RIGHT 3RD [...] subjacent bone is pink-ferguson and slightly soft. 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 tm Microscopic Description 1, 2. Microscopic examination performed. SURGICAL PATHOLOGY CONSULTATION Patient Name: JILLIAN LITTLE [facility] Rec: [id number] Path Number: [id number] [facility] ANATOMIC PATHOLOGY [address] [place] [address]. [place], [place] [address] [place], [place] Basic Metabolic Panelon 03-11 Anion gap [Moles/Vol] 10 mmol/L 9 - 17 mmol/L [place] Bun/Cre Ratio 13 [place] Calcium [Mass/Vol] 9.9 mg/dL 8.6 - 10. 4 mg/dL [place] Chloride [Moles/Vol] 100 mmol/L 98 - 10 7 mmol/L [place] CO2 [Moles/Vol] 26 mmol/L 20 - 31 mmol/L [place] Creatinine [Mass/Vol] 0.9 mg/dL 0.7 - 1.2 mg/dL [place] GFR >60 >60 mL/min [place] GFR Non- >60 >60 mL/min [place] GFR/1.73 sq M predicted among non-blacks MDRD (S/P/Bld) [Vol rate/Area] [place], [place] Comment on above: Average GFR for 50-5 9 years old: 93 mL/min/1.73sq m Chronic Kidney Disease: <60 mL/min/1.73sq m Kidney failure: <15 mL/min/1.73sq m eGFR calculated using average adult body mass. Additional eGFR calculator available at: http://www.[employer]/multiple_crcl_2011.htm GFR/1.73 sq M predicted among non-blacks MDRD (S/P/Bld) [Vol rate/Area] NOT REPORTED [place] Glucose [Mass/Vol] 227 mg/dL High 70 - 99 mg/dL [place] Interpretation and review of laboratory results Abnormal [place] Potassium [Moles/Vol] 3.6 mmol/L Low 3.7 - 5.3 mmol/L [place] Sodium [Moles/Vol] 136 mmol/L 135 - 144 mmol/L [place] Urea nitrogen [Mass/Vol] 12 mg/dL 6 - 20 mg/dL [place] Culture, [place]ound[place] 03-23-2020 Culture NORMAL SKIN VIRGEN Abnormal [place] Culture STREPTOCOCCI, BETA HEMOLYTIC GROUP B LIGHT GROWTH Abnormal [place] Direct Exam NO NEUTROPHILS SEEN [place] Direct Exam NO BACTERIA SEEN [place] Interpretation and review of laboratory results Abnormal [place] Special Requests NOT REPORTED [place] Specimen Description .FOOT LEFT [place] Glucose, Whole Bloodon 03-23 Glucose [Mass/Vol] 268 mg/dL High 65 - 99 mg/dL [place] Interpretation and review of laboratory results Abnormal [place] Glucose [Mass/Vol] 273 mg/dL High 65 - 99 mg/dL [place] Interpretation and review of laboratory results Abnormal [place] Glucose [Mass/Vol] 118 mg/dL High 65 - 99 mg/dL [place] Interpretation and review of laboratory results Abnormal [place] Glucose [Mass/Vol] 173 mg/dL High 65 - 99 mg/dL [place] Interpretation and review of laboratory results Abnormal [place] Vancomycin, troughon 021 Vancomycin Tr 15 ug/mL 10 - 20 ug/mL [place] Comment on above: Higher trough serum vancomycin concentrations of 15-20 ug/mL are recommended for complicated infections such as bacteremia, endocarditis, osteomyelitis, meningitis, and hospital acquired pneumonia. Vancomycin Trough Date last dose UNKNOWN [place] Vancomycin Trough Dose amount UNKNOWN [place] Vancomycin Trough Time last dose UNKNOWN [place] Basic Metabolic Panelon 03-11 Anion gap [Moles/Vol] 7 mmol/L Low 9 - 17 mmol/L [place] Bun/Cre Ratio 12 [place] Calcium [Mass/Vol] 9.6 mg/dL 8.6 - 10. 4 mg/dL [place] Chloride [Moles/Vol] 100 mmol/L 98 - 10 7 mmol/L [place] CO2 [Moles/Vol] 29 mmol/L 20 - 31 mmol/L [place] Creatinine [Mass/Vol] 0.78 mg/dL 0.7 - 1.2 mg/dL [place] GFR >60 >60 mL/min [place] GFR Non- >60 >60 mL/min [place] GFR/1.73 sq M predicted among non-blacks MDRD (S/P/Bld) [Vol rate/Area] NOT REPORTED [place] GFR/1.73 sq M predicted among non-blacks MDRD (S/P/Bld) [Vol rate/Area] [place], [place] Comment on above: Average GFR for 50-5 9 years old: 93 mL/min/1.73sq m Chronic Kidney Disease: <60 mL/min/1.73sq m Kidney failure: <15 mL/min/1.73sq m eGFR calculated using average adult body mass. Additional eGFR calculator available at: http://www.CollegeHumor/multiple_crcl_2011.htm Glucose [Mass/Vol] 193 mg/dL High 70 - 99 mg/dL [place] Interpretation and review of laboratory results Abnormal [place] Potassium [Moles/Vol] 3.6 mmol/L Low 3.7 - 5.3 mmol/L [place] Sodium [Moles/Vol] 136 mmol/L 135 - 144 mmol/L [place] Urea nitrogen [Mass/Vol] 9 mg/dL 6 - 20 mg/dL [place] CBC Auto Differentialon 03-11 Basophils (Bld) [#/Vol] 0.00 10*3/uL [place] Basophils/100 WBC (Bld) 1 % 0 - 2 % [place] Differential Type YES [place] Eosinophils (Bld) [#/Vol] 0.10 10*3/uL [place] Eosinophils/100 WBC (Bld) 2 % 0 - 5 % [place] Erythrocyte distribution width (RBC) [Ratio] 12.9 % 12.1 - 15.2 % [place] Hematocrit (Bld) [Volume fraction] 31.0 % Low 41 - 53 % [place] Hemoglobin (Bld) [Mass/Vol] 10.5 g/dL Low 13.5 - 17.5 g/dL [place] Interpretation and review of laboratory results Abnormal [place] Lymphocytes (Bld) [#/Vol] 1.50 10*3/uL [place] Lymphocytes/100 WBC (Bld) 26 % 13 - 44 % [place] MCH (RBC) [Entitic mass] 29.5 pg 26 - 34 pg [place] MCHC (RBC) [Mass/Vol] 33.9 g/dL 31 - 3 7 g/dL [place] MCV (RBC) [Entitic vol] 86.9 fL 80 - 100 fL [place] Monocytes (Bld) [#/Vol] 0.50 10*3/uL [place] Monocytes/100 WBC (Bld) 8 % 5 - 9 % [place] Platelet mean volume (Bld) [Entitic vol] NOT REPORTED 6 - 12 fL [place] Platelets (Bld) [#/Vol] 247 10*3/uL [place] Platelets (Bld) [#/Vol] NOT REPORTED [place] RBC (Bld) [#/Vol] 3.56 10*6/uL Low 4.5 - 5.9 m/uL [place] RBC morphology finding Nom (Bld) NOT REPORTED [place] Segmented neutrophils/100 WBC (Bld) 63 % 39 - 75 % [place] Segs Absolute 3.70 [place] WBC (Bld) [#/Vol] NOT REPORTED per 100 WBC [place] WBC (Bld) [#/Vol] 5.9 10*3/uL [place] WBC Morphology NOT REPORTED [place] Culture, [place] 03-22-2020 Culture STAPHYLOCOCCUS AUREUS MODERATE GROWTH Abnormal [place] Culture STREPTOCOCCI, BETA HEMOLYTIC GROUP B HEAVY GROWTH Abnormal [place] Culture This is a mixed culture of organisms, which may represent colonization or contamination. Notify the laboratory within 7 days for further workup. Susceptibilities have not been performed. Abnormal [place] Culture MULTIPLE SPECIES OF GRAM NEGATIVE BACTERIA, NO PREDOMINANT ORGANISM ISOLATED. Abnormal [place] Direct Exam NO NEUTROPHILS SEEN [place] Direct Exam Positive Abnormal [place] Direct Exam Negative Abnormal [place] Interpretation and review of laboratory results Abnormal [place] Special Requests NOT REPORTED [place] Specimen Description .FOOT [place] Glucose, Whole Bloodon 03-22 Glucose [Mass/Vol] 200 mg/dL High 65 - 99 mg/dL [place] Interpretation and review of laboratory results Abnormal [place] Glucose [Mass/Vol] 170 mg/dL High 65 - 99 mg/dL [place] Interpretation and review of laboratory results Abnormal [place] Glucose [Mass/Vol] 196 mg/dL High 65 - 99 mg/dL [place] Interpretation and review of laboratory results Abnormal [place] Glucose [Mass/Vol] 174 mg/dL High 65 - 99 mg/dL [place] Interpretation and review of laboratory results Abnormal [place] Otheron 03-22-2020 Immature granulocytes (Bld) [#/Vol] NOT REPORTED 0 % [place] Vancomycin, troughon 021 Interpretation and review of laboratory results Abnormal [place] Vancomycin Tr 9.7 ug/mL Low 10 - 20 ug/mL [place] Comment on above: Higher trough serum vancomycin concentrations of 15-20 ug/mL are recommended for complicated infections such as bacteremia, endocarditis, osteomyelitis, meningitis, and hospital acquired pneumonia. Vancomycin Trough Date last dose 03/21/2020 [place] Vancomycin Trough Dose amount 1250 MG [place], [place] Vancomycin Trough Time last dose 1250 [place] Basic Metabolic Panel w/ Ref belle to MGon 03-21-2020 Anion gap [Moles/Vol] 8 mmol/L Low 9 - 17 mmol/L [place] Bun/Cre Ratio 9 [place] Calcium [Mass/Vol] 8.3 mg/dL Low 8.6 - 10. 4 mg/dL [place] Chloride [Moles/Vol] 100 mmol/L 98 - 10 7 mmol/L [place] CO2 [Moles/Vol] 27 mmol/L 20 - 31 mmol/L [place] Creatinine [Mass/Vol] 0.8 mg/dL 0.7 - 1.2 mg/dL [place] GFR >60 >60 mL/min [place] GFR Non- >60 >60 mL/min [place] GFR/1.73 sq M predicted among non-blacks MDRD (S/P/Bld) [Vol rate/Area] [place], [place] Comment on above: Average GFR for 50-5 9 years old: 93 mL/min/1.73sq m Chronic Kidney Disease: <60 mL/min/1.73sq m Kidney failure: <15 mL/min/1.73sq m eGFR calculated using average adult body mass. Additional eGFR calculator available at: http://www.CollegeHumor/multiple_crcl_2012.htm GFR/1.73 sq M predicted among non-blacks MDRD (S/P/Bld) [Vol rate/Area] NOT REPORTED [place] Glucose [Mass/Vol] 160 mg/dL High 70 - 99 mg/dL [place] Interpretation and review of laboratory results Abnormal [place] Potassium [Moles/Vol] 3.3 mmol/L Low 3.7 - 5.3 mmol/L [place] Sodium [Moles/Vol] 135 mmol/L 135 - 144 mmol/L [place] Urea nitrogen [Mass/Vol] 7 mg/dL 6 - 20 mg/dL [place] CBC auto differentialon 03-11 Basophils (Bld) [#/Vol] 0.00 10*3/uL [place] Basophils/100 WBC (Bld) 0 % 0 - 2 % [place] Differential Type YES [place] Eosinophils (Bld) [#/Vol] 0.10 10*3/uL [place] Eosinophils/100 WBC (Bld) 1 % 0 - 5 % [place] Erythrocyte distribution width (RBC) [Ratio] 13.0 % 12.1 - 15.2 % [place] Hematocrit (Bld) [Volume fraction] 30.6 % Low 41 - 53 % [place] Hemoglobin (Bld) [Mass/Vol] 10.3 g/dL Low 13.5 - 17.5 g/dL [place] Interpretation and review of laboratory results Abnormal [place] Lymphocytes (Bld) [#/Vol] 1.70 10*3/uL [place] Lymphocytes/100 WBC (Bld) 22 % 13 - 44 % [place] MCH (RBC) [Entitic mass] 29.3 pg 26 - 34 pg [place] MCHC (RBC) [Mass/Vol] 33.6 g/dL 31 - 3 7 g/dL [place] MCV (RBC) [Entitic vol] 87.2 fL 80 - 100 fL [place] Monocytes (Bld) [#/Vol] 0.60 10*3/uL [place] Monocytes/100 WBC (Bld) 8 % 5 - 9 % [place] Platelet mean volume (Bld) [Entitic vol] NOT REPORTED 6 - 12 fL [place] Platelets (Bld) [#/Vol] NOT REPORTED [place] Platelets (Bld) [#/Vol] 221 10*3/uL [place] RBC (Bld) [#/Vol] 3.51 10*6/uL Low 4.5 - 5.9 m/uL [place] RBC morphology finding Nom (Bld) NOT REPORTED [place] Segmented neutrophils/100 WBC (Bld) 69 % 39 - 75 % [place] Segs Absolute 5.20 [place] WBC (Bld) [#/Vol] 7.5 10*3/uL [place] WBC (Bld) [#/Vol] NOT REPORTED per 100 WBC [place] WBC Morphology NOT REPORTED [place] Glucose, Whole Bloodon 03-21 Glucose [Mass/Vol] 150 mg/dL High 65 - 99 mg/dL [place] Interpretation and review of laboratory results Abnormal [place] Glucose [Mass/Vol] 202 mg/dL High 65 - 99 mg/dL [place] Interpretation and review of laboratory results Abnormal [place] Glucose [Mass/Vol] 153 mg/dL High 65 - 99 mg/dL [place] Interpretation and review of laboratory results Abnormal [place] Glucose [Mass/Vol] 155 mg/dL High 65 - 99 mg/dL [place] Interpretation and review of laboratory results Abnormal [place] Hemoglobin A1con 03-21-2020 Glucose [Mass/Vol] 355 mg/dL [place] Comment on above: The ADA and AACC rec ommend providing the estimated average glucose result to permit better patient understanding of their HBA1c result. HbA1c (Bld) [Mass fraction] 14.0 % High 4 - 6 % [place] Interpretation and review of laboratory results Abnormal [place] MRI FOOT RIGHT W WO CONTRAST [...] of superimposed infectious myositis cannot be excluded. [facility], [place] CLINICAL HISTORY: Diabetic right foot ulcer, plantar [...] time dictation on 03/21/2020, at 1:00 PM [facility] [place], [place] Cedric, Mhpn Incoming Radiant Results From [facility] - 03/21/2020 1:02 PM EST CLINICAL HISTORY: [...] of superimposed infectious myositis cannot be excluded. [place] Magnesiumon 03-21-2020 Magnesium [Mass/Vol] 1.6 mg/dL 1.6 - 2 .6 mg/dL [place] Otheron 03-21-2020 Immature granulocytes (Bld) [#/Vol] NOT REPORTED [place] CBC Auto Differentialon 03-11 Basophils (Bld) [#/Vol] 0.10 10*3/uL [place] Basophils/100 WBC (Bld) 1 % 0 - 2 % [place] Differential Type YES [place] Eosinophils (Bld) [#/Vol] 0.00 10*3/uL [place] Eosinophils/100 WBC (Bld) 0 % 0 - 5 % [place] Erythrocyte distribution width (RBC) [Ratio] 13.6 % 12.1 - 15.2 % [place] Hematocrit (Bld) [Volume fraction] 35.4 % Low 41 - 53 % [place] Hemoglobin (Bld) [Mass/Vol] 11.8 g/dL Low 13.5 - 17.5 g/dL [place] Interpretation and review of laboratory results Abnormal [place] Lymphocytes (Bld) [#/Vol] 1.40 10*3/uL [place] Lymphocytes/100 WBC (Bld) 13 % 13 - 44 % [place] MCH (RBC) [Entitic mass] 29.3 pg 26 - 34 pg [place] MCHC (RBC) [Mass/Vol] 33.4 g/dL 31 - 3 7 g/dL [place] MCV (RBC) [Entitic vol] 87.6 fL 80 - 100 fL [place] Monocytes (Bld) [#/Vol] 0.70 10*3/uL [place] Monocytes/100 WBC (Bld) 6 % 5 - 9 % [place] Platelet mean volume (Bld) [Entitic vol] NOT REPORTED 6 - 12 fL [place] Platelets (Bld) [#/Vol] 253 10*3/uL [place] Platelets (Bld) [#/Vol] NOT REPORTED [place] RBC (Bld) [#/Vol] 4.04 10*6/uL Low 4.5 - 5.9 m/uL [place] RBC morphology finding Nom (Bld) NOT REPORTED [place] Segmented neutrophils/100 WBC (Bld) 80 % High 39 - 75 % [place] Segs Absolute 9.20 High [place] WBC (Bld) [#/Vol] 11.5 10*3/uL [place] WBC (Bld) [#/Vol] NOT REPORTED per 100 WBC [place] WBC Morphology NOT REPORTED [place] COVID-19on 03-20-2020 SARS-CoV-2, Rapid Not Detected Not Detected [place] Comment on above: Rapid NAAT: The [...] management decisions. Fact sheet for Healthcare Providers: https://www.fda.gov/media/901962/download Fact sheet for Patients: https://www.fda.gov/media/798553/download Methodology: Isothermal Nucleic Acid Amplification Source .THROAT [place] Comprehensive Metabolic Pane dayo 03-20-2020 Albumin [Mass/Vol] 3.8 g/dL 3.5 - 5.2 g/dL [place] Albumin/Globulin [Mass ratio] NOT REPORTED [place] ALP [Catalytic activity/Vol] 121 U/L 40 - 129 U/L [place] ALT [Catalytic activity/Vol] 11 U/L 5 - 41 U/L [place] Anion gap [Moles/Vol] 10 mmol/L 9 - 17 mmol/L [place] AST [Catalytic activity/Vol] 13 U/L <40 [place] Bilirubin Ql (U) 1.33 mg/dL High 0.3 - 1.2 mg/dL [place] Bun/Cre Ratio 11 [place] Calcium [Mass/Vol] 8.9 mg/dL 8.6 - 10. 4 mg/dL [place] Chloride [Moles/Vol] 97 mmol/L Low 98 - 10 7 mmol/L [place] CO2 [Moles/Vol] 27 mmol/L 20 - 31 mmol/L [place] Creatinine [Mass/Vol] 0.94 mg/dL 0.7 - 1.2 mg/dL [place] GFR >60 >60 mL/min [place] GFR Non- >60 >60 mL/min [place] GFR/1.73 sq M predicted among non-blacks MDRD (S/P/Bld) [Vol rate/Area] [place] Comment on above: Average GFR for 50-5 9 years old: 93 mL/min/1.73sq m Chronic Kidney Disease: <60 mL/min/1.73sq m Kidney failure: <15 mL/min/1.73sq m eGFR calculated using average adult body mass. Additional eGFR calculator available at: http://www.[employer]/multiple_crcl_2012.htm GFR/1.73 sq M predicted among non-blacks MDRD (S/P/Bld) [Vol rate/Area] NOT REPORTED [place] Glucose [Mass/Vol] 244 mg/dL High 70 - 99 mg/dL [place] Interpretation and review of laboratory results Abnormal [place] Potassium [Moles/Vol] 3.6 mmol/L Low 3.7 - 5.3 mmol/L [place] Protein [Mass/Vol] 7.1 g/dL 6.4 - 8.3 g/dL [place] Sodium [Moles/Vol] 134 mmol/L Low 135 - 144 mmol/L [place] Urea nitrogen [Mass/Vol] 10 mg/dL 6 - 20 mg/dL [place] Glucose, Whole Bloodon 03-20 Glucose [Mass/Vol] 203 mg/dL High 65 - 99 mg/dL [place] Interpretation and review of laboratory results Abnormal [place] Glucose [Mass/Vol] 178 mg/dL High 65 - 99 mg/dL [place] Interpretation and review of laboratory results Abnormal [place] Glucose [Mass/Vol] 217 mg/dL High 65 - 99 mg/dL [place] Interpretation and review of laboratory results Abnormal [place] Glucose [Mass/Vol] 187 mg/dL High 65 - 99 mg/dL [place] Interpretation and review of laboratory results Abnormal [place] Glucose [Mass/Vol] 209 mg/dL High 65 - 99 mg/dL [place] Interpretation and review of laboratory results Abnormal [place] Lactic Acidon 03-20-2020 Lactate [Moles/Vol] 2 mmol/L 0.5 - 2. 2 mmol/L [place] Otheron 03-20-2020 SARS-CoV-2 [place] Immature granulocytes (Bld) [#/Vol] NOT REPORTED 0 % [place] XR FOOT RIGHT (MIN 3 VIEWS)o n 03-20-2020 1. No osseous abnormality is noted. 2. There is mild diffuse soft tissue swelling. [place] Cedric, Mhpn Incoming Radiant Results From [facility] - 03/20/2020 1:10 AM EST RIGHT FOOT [...] There is mild diffuse soft tissue swelling. [place] RIGHT FOOT 3 VIEWS HISTORY: Large open wound plantar aspect right foot COMPARISON: 02/21/2017 FINDINGS: The osseous structures are adequately mineralized. No fracture, dislocation, or other acute osseous abnormality is noted. There is no conventional radiographic evidence of osteomyelitis. There is mild diffuse soft tissue swelling about the metatarsals. [place] Comprehensive Metabolic Pane lOrdered By: Sara Lester on 03-12-2019 Albumin [Mass/Vol] 4.9 g/dL 3.5 - 5.2 g/dL [facility] [employer] Work Phone: Albumin/Globulin Ratio NOT REPORTED [facility]: ALP [Catalytic activity/Vol] 84 U/L 40 - 129 U/L [facility] Work Phone: ALT [Catalytic activity/Vol] 22 U/L 5 - 41 U/L [employer] Phone: Anion gap [Moles/Vol] 15 mmol/L 9 - 17 mmol/L [employer] Phone: AST [Catalytic activity/Vol] 28 U/L <40 [employer] Phone: Bilirubin [Mass/Vol] 1.02 mg/dL 0.3 - 1 .2 mg/dL [employer] Phone: Bun/Cre Ratio 13 [employer] Phone: Calcium [Mass/Vol] 10.8 mg/dL High 8.6 - 10. 4 mg/dL [employer] Phone: Chloride [Moles/Vol] 101 mmol/L 98 - 10 7 mmol/L [employer] Phone: CO2 [Moles/Vol] 24 mmol/L 20 - 31 mmol/L [employer] Phone: Creatinine [Mass/Vol] 0.94 mg/dL 0.7 - 1.2 mg/dL [employer] Phone: GFR >60 >60 mL/min [employer] Phone: GFR Comment [employer] Phone: Comment on above: Average GFR for 50-5 9 years old: 93 mL/min/1.73sq m Chronic Kidney Disease: <60 mL/min/1.73sq m Kidney failure: <15 mL/min/1.73sq m eGFR calculated using average adult body mass. Additional eGFR calculator available at: http://www.[employer]/multiple_crcl_2012.htm GFR Non- >60 >60 mL/min [employer] Phone: GFR Staging NOT REPORTED [employer] Phone: Glucose [Mass/Vol] 61 mg/dL Low 70 - 99 mg/dL [employer] Phone: Interpretation and review of laboratory results Abnormal [employer] Phone: Potassium [Moles/Vol] 4.0 mmol/L 3.7 - 5.3 mmol/L [employer] Phone: Protein [Mass/Vol] 7.8 g/dL 6.4 - 8.3 g/dL [employer] Phone: Sodium [Moles/Vol] 140 mmol/L 135 - 144 mmol/L [employer] Phone: Urea nitrogen [Mass/Vol] 12 mg/dL 6 - 20 mg/dL [employer] Phone: Hemoglobin [id number] By: Fox Lester on 03-12-2019 Glucose [Mass/Vol] 203 mg/dL [employer] Phone: Comment on above: The ADA and AACC rec ommend providing the estimated average glucose result to permit better patient understanding of their HBA1c result. HbA1c (Bld) [Mass fraction] 8.7 % High 4.8 - 5.9 % [employer] Phone: Interpretation and review of laboratory results Abnormal [employer] Phone: Lipid PanelOrdered By: Lilia Lester on 03-12-2019 Cholesterol [Mass/Vol] 109 mg/dL <200 [employer] Phone: Comment on above: Cholesterol Guidelines: <200 Desirable 200-240 Borderline >240 Undesirable Cholesterol in HDL [Mass/Vol] 58 mg/dL >40 [employer] Phone: Comment on above: HDL Guidelines: <40 Undesirable 40-59 Borderline >59 Desirable Cholesterol in LDL [Mass/Vol] 32 mg/dL 0 - 130 mg/dL [employer] Phone: Comment on above: LDL Guidelines: <100 Desirable 100-129 Near to/above Desirable 130-159 Borderline >159 Undesirable Direct (measured) LDL and calculated LDL are not interchangeable tests. Cholesterol.total/Choles terol in HDL [Mass ratio] 1.9 {ratio} <5 [employer] Phone: Triglyceride [Mass/Vol] 93 mg/dL <150 [facility]: Comment on above: Triglyceride Guidelines: <150 Desirable 150-199 Borderline 200-499 High >499 Very high Based on AHA Guidelines for fasting triglyceride, December 2011. VLDL NOT REPORTED 1 - 30 mg/dL [facility]: Patient Fasting?Ordered By: Sara Lester on 03-12-2019 Patient Fasting? yes [employer] Phone: Comprehensive Metabolic Pane dayo 10-20-2018 Albumin [Mass/Vol] 4.1 g/dL 3.5 - 5.2 g/dL [place] Albumin/Globulin [Mass ratio] NOT REPORTED [place] ALP [Catalytic activity/Vol] 98 U/L 40 - 129 U/L [place] ALT [Catalytic activity/Vol] 9 U/L 5 - 41 U/L [place] Anion gap [Moles/Vol] 13 mmol/L 9 - 17 mmol/L [place] AST [Catalytic activity/Vol] 12 U/L <40 [place] Bilirubin Ql (U) 0.74 mg/dL 0.3 - 1.2 mg/dL [place] Bun/Cre Ratio 8 Low [place] Calcium [Mass/Vol] 9.5 mg/dL 8.6 - 10. 4 mg/dL [place] Chloride [Moles/Vol] 98 mmol/L 98 - 10 7 mmol/L [place] CO2 [Moles/Vol] 25 mmol/L 20 - 31 mmol/L [place] Creatinine [Mass/Vol] 0.75 mg/dL 0.7 - 1.2 mg/dL [place] GFR >60 >60 mL/min [place] GFR Non- >60 >60 mL/min [place] GFR/1.73 sq M predicted among non-blacks MDRD (S/P/Bld) [Vol rate/Area] [place] Comment on above: Average GFR for 50-5 9 years old: 93 mL/min/1.73sq m Chronic Kidney Disease: <60 mL/min/1.73sq m Kidney failure: <15 mL/min/1.73sq m eGFR calculated using average adult body mass. Additional eGFR calculator available at: http://www.[employer]/multiple_crcl_2012.htm GFR/1.73 sq M predicted among non-blacks MDRD (S/P/Bld) [Vol rate/Area] NOT REPORTED [place] Glucose [Mass/Vol] 440 mg/dL Critically high 70 - 9 9 mg/dL [place] Interpretation and review of laboratory results Abnormal [place] Potassium [Moles/Vol] 3.3 mmol/L Low 3.7 - 5.3 mmol/L [place] Protein [Mass/Vol] 7.4 g/dL 6.4 - 8.3 g/dL [place] Sodium [Moles/Vol] 136 mmol/L 135 - 144 mmol/L [place] Urea nitrogen [Mass/Vol] 6 mg/dL 6 - 20 mg/dL [place] Hemoglobin A1Con 10-20-2018 Glucose [Mass/Vol] 303 mg/dL [place] Comment on above: The ADA and AACC rec ommend providing the estimated average glucose result to permit better patient understanding of their HBA1c result. HbA1c (Bld) [Mass fraction] 12.2 % High 4.8 - 5.9 % [place] Interpretation and review of laboratory results Abnormal [place] Microalbumin / Creatinine Ur ine Ratioon 10-20-2018 Albumin/Creatinine DL <= 20 mg/L (24H U) [Mass ratio] <12 <21 mg/L [place] Albumin/Creatinine DL <= 20 mg/L (U) [Ratio] CANNOT BE CALCULATED <17 mcg/mg creat [place] Creatinine, Ur 47.6 mg/dL 39 - 259 mg/dL [place] Vital Signs Date Time Vital Sign Value Performing Clinician Charles jean-baptiste 10-08-2023 16:15-0400 Diastolic blood pressure 63 mm[Hg] Maxim Gutierrez Work Phone: [email or web address] 10-08-2023 16:15-0400 Heart rate 110 /min Maxim Gutierrez Work Phone: [email or web address] 10-08-2023 16:15-0400 Respiratory rate 15 /min Maxim Gutierrez Work Phone: [email or web address] 10-08-2023 16:15-0400 Systolic blood pressure 103 mm[Hg] Maxim Gutierrez Work Phone: [facility] [employer] 10-08-2023 16:14-0400 SaO2% (BldA) [Mass fraction] 93 % Maxim Gutierrez DO Work Phone: [email or web address] 10-08-2023 13:52-0400 Body height 175.3 cm Maxim Gutierrez Work Phone: [facility] [employer] 10-08-2023 13:52-0400 Body mass index (BMI) [Ratio] 26.58 kg/m2 Maxim Gutierrez Work Phone: [email or web address] 10-08-2023 13:52-0400 Body temperature 99.9 [degF] Maxim Gutierrez DO Work Phone: [email or web address] 10-08-2023 13:52-0400 Body weight 81.65 kg Maxim Gutierrez Work Phone: [email or web address] 07-05-2023 11:16-0400 Body height 175.3 cm Festus Tolentino MD Work Phone: [email or web address] 07-05-2023 08:57-0400 SaO2% (BldA) [Mass fraction] 98 % Festus Tolentino MD Work Phone: [facility] [employer] 07-05-2023 07:40-0400 Body temperature 98.1 [degF] Festus Tolentino MD Work Phone: [facility] 07-05-2023 07:40-0400 Diastolic blood pressure 67 mm[Hg] Festus Tolentino MD Work Phone: [facility] 07-05-2023 07:40-0400 Heart rate 88 /min Festus Tolentino MD Work Phone: [facility] 07-05-2023 07:40-0400 Respiratory rate 16 /min Festus Tolentino MD Work Phone: [facility] 07-05-2023 07:40-0400 Systolic blood pressure 110 mm[Hg] Festus Tolentino MD Work Phone: [facility] 07-05-2023 06:00-0400 Body mass index (BMI) [Ratio] 28.26 kg/m2 Festus Tolentino MD Work Phone: [facility] 07-05-2023 06:00-0400 Body weight 86.8 kg Festus Tolentino MD Work Phone: [facility] 10-03-2022 14:03-0400 Hourly Rounding [facility] 10-03-2022 14:03-0400 Promise to Return [facility] 10-03-2022 14:00-0400 Blood Pressure Location [facility] 10-03-2022 14:00-0400 Body temperature 98.06 [degF] [facility] 10-03-2022 14:00-0400 Diastolic blood pressure 70 mm[Hg] [facility] 10-03-2022 14:00-0400 Heart rate 88 /min [facility] 10-03-2022 14:00-0400 Hourly Rounding [facility] 10-03-2022 14:00-0400 Respiratory rate 17 /min [facility] 10-03-2022 14:00-0400 SaO2% (BldA) [Mass fraction] 97 % [facility] 10-03-2022 14:00-0400 Systolic blood pressure 118 mm[Hg] [facility] 10-03-2022 13:27-0400 Promise to Return [facility] 10-03-2022 12:27-0400 Promise to Return [facility] 10-03-2022 08:00-0400 Diastolic blood pressure 72 mm[Hg] [facility] 10-03-2022 08:00-0400 Heart rate 89 /min [facility] 10-03-2022 08:00-0400 SaO2% (BldA) [Mass fraction] 94 % [facility] 10-03-2022 08:00-0400 Systolic blood pressure 113 mm[Hg] [facility] 10-02-2022 20:00-0400 Respiratory rate 16 /min [facility] 10-02-2022 19:24-0400 Heart rate 96 /min [facility] 10-02-2022 19:24-0400 SaO2% (BldA) [Mass fraction] 96 % [facility] 10-02-2022 19:24-0400 Diastolic blood pressure 73 mm[Hg] [facility] 10-02-2022 19:24-0400 Mean blood pressure 89 mm[Hg] [facility] 10-02-2022 19:24-0400 Systolic blood pressure 121 mm[Hg] [facility] 10-02-2022 19:23-0400 Body temperature 98.24 [degF] [facility] 10-02-2022 16:30-0400 Body temperature 97.88 [degF] [facility] 10-02-2022 16:30-0400 Mean blood pressure 81 mm[Hg] [facility] 10-02-2022 16:00-0400 Blood Pressure [facility] 10-02-2022 14:22-0400 Mean blood pressure 91 mm[Hg] [facility] 10-02-2022 14:21-0400 Body temperature 97.88 [degF] [facility] 10-02-2022 12:00-0400 Mean blood pressure 94 mm[Hg] [facility] 10-02-2022 11:54-0400 gluc 289 mg/dL yang [facility] 10-02-2022 11:54-0400 Mean blood pressure 102 mm[Hg] [facility] 10-02-2022 11:54-0400 Respiratory rate 20 /min [facility] 10-02-2022 11:29-0400 Body temperature 97.88 [degF] [facility] 10-02-2022 11:29-0400 Heart rate 103 /min [facility] 10-02-2022 10:25-0400 Mean blood pressure 79 mm[Hg] [facility] 10-02-2022 09:30-0400 Heart rate 120 /min [facility] 08-14-2022 10:07-0400 Diastolic blood pressure 69 mm[Hg] Bonifacio Blayne [facility] 08-14-2022 10:07-0400 Heart rate 108 /min Bonifacio Blayne [facility] 08-14-2022 10:07-0400 Systolic blood pressure 120 mm[Hg] Bonifacio Blayne [facility] 08-14-2022 10:03-0400 Hourly Rounding Bonifacio Blayne [facility] 08-14-2022 10:03-0400 Promise to Return Bonifacio Blayne [facility] 08-14-2022 09:15-0400 Hourly Rounding Bonifacio Blayne [facility] 08-14-2022 09:15-0400 Promise to Return Bonifacio Blayne [facility] 08-14-2022 08:37-0400 gluc 106 mg/dL Bonifacio Blayne [facility] 08-14-2022 08:37-0400 Hourly Rounding Bonifacio Blayne [facility] 08-14-2022 08:37-0400 Promise to Return Bonifacio Blayne [facility] 08-14-2022 08:06-0400 Heart rate 104 /min Bonifacio Blayne [facility] 08-14-2022 08:06-0400 SaO2% (BldA) [Mass fraction] 91 % Bonifacio Blayne [facility] 08-14-2022 08:04-0400 Diastolic blood pressure 69 mm[Hg] Bonifacio Blayne [facility] 08-14-2022 08:04-0400 Mean blood pressure 86 mm[Hg] Bonifacio Blayne [facility] 08-14-2022 08:04-0400 Systolic blood pressure 120 mm[Hg] Bonifacio Blayne [facility] 08-14-2022 08:04-0400 Body temperature 98.6 [degF] Bonifacio Blayne [facility] 08-14-2022 08:00-0400 gluc 98 mg/dL Bonifacio Blayne [facility] 08-14-2022 07:52-0400 Heart rate 100 /min Bonifacio Blayne [facility] 08-14-2022 07:52-0400 Respiratory rate 18 /min Bonifacio Blayne [facility] 08-14-2022 07:47-0400 Heart rate 98 /min Bonifacio Blayne [facility] 08-14-2022 07:47-0400 Respiratory rate 18 /min Bonifacio Blayne [facility] 08-14-2022 00:25-0400 Body temperature 97.88 [degF] Bonifacio Blayne [facility] 08-14-2022 00:25-0400 Diastolic blood pressure 62 mm[Hg] Bonifacio Blayne [facility] 08-14-2022 00:25-0400 Respiratory rate 16 /min Bonifacio Blayne [facility] 08-14-2022 00:25-0400 SaO2% (BldA) [Mass fraction] 97 % Bonifacio Blayne [facility] 08-14-2022 00:25-0400 Systolic blood pressure 110 mm[Hg] Bonifacio Blayne [facility] 08-13-2022 19:58-0400 SaO2% (BldA) [Mass fraction] 97 % Bonifacio Blayne [facility] 08-13-2022 17:04-0400 gluc 79 mg/dL Bonifacio Blayne [facility] 08-13-2022 16:40-0400 Body temperature 98.42 [degF] Bonifacio Blayne [facility] 08-13-2022 16:40-0400 Mean blood pressure 93 mm[Hg] Bonifacio Blayne [facility] 08-13-2022 11:24-0400 Mean blood pressure 98 mm[Hg] Bonifacio Blayne [facility] 08-13-2022 08:57-0400 Heart rate 111 /min Bonifacio Blayne [facility] 08-13-2022 01:41-0400 Mean blood pressure 93 mm[Hg] Bonifacio Blayne [facility] 08-12-2022 10:05-0400 Heart rate 110 /min Bonifacio Blayne [facility] 08-12-2022 00:00-0400 Blood Pressure Location Bonifacio Blayne [facility] 08-12-2022 00:00-0400 Body temperature 98.42 [degF] Bonifacio Blayne [facility] 08-12-2022 00:00-0400 Mean blood pressure 89 mm[Hg] Bonifacio Blayne [facility] 08-11-2022 15:44-0400 Body temperature 96.98 [degF] Bonifacio Blayne [facility] 08-10-2022 07:00-0400 Blood Pressure Location Bonifacio Blayne [facility] 08-10-2022 05:00-0400 Mean blood pressure 80 mm[Hg] Bonifacio Blayne [facility] 08-09-2022 19:03-0400 Heart rate 99 /min Bonifacio Blayne [facility] 08-09-2022 18:33-0400 Respiratory rate 19 /min Bonifacio Blayne [facility] 08-09-2022 18:00-0400 Respiratory rate 20 /min Bonifacio Cisneros [facility] 08-09-2022 17:30-0400 Respiratory rate 22 /min Bonifacio Cisneros [facility] 08-09-2022 16:10-0400 SaO2% (BldA) [Mass fraction] 88.3 % Bonifacio Cisneros [facility] 08-09-2022 15:00-0400 Heart rate 125 /min Bonifacio Cisneros [facility] 06-30-2022 09:07-0400 Heart rate 98 /min Cass Harrison MD Work Phone: [employer] 06-30-2022 09:07-0400 Respiratory rate 18 /min Cass Harrison MD Work Phone: [employer] 06-30-2022 09:07-0400 SaO2% (BldA) [Mass fraction] 97 % Cass Harrison MD Work Phone: [employer] 06-30-2022 08:20-0400 Body temperature 98.2 [degF] Cass Harrison MD Work Phone: [email or web address] 06-30-2022 08:20-0400 Diastolic blood pressure 66 mm[Hg] Cass Harrison MD Work Phone: [email or web address] 06-30-2022 08:20-0400 Systolic blood pressure 112 mm[Hg] Cass Harrison MD Work Phone: [employer] 06-30-2022 06:00-0400 Body mass index (BMI) [Ratio] 31.19 kg/m2 Cass Harrison MD Work Phone: [employer] 06-30-2022 06:00-0400 Body weight 95.8 kg Cass Harrison MD Work Phone: [employer] 06-27-2022 10:12-0400 Body height 175.3 cm Cass Harrison MD Work Phone: [employer] 06-21-2022 13:50-0400 Diastolic blood pressure 78 mm[Hg] Cass Harrison MD Work Phone: [employer] 06-21-2022 13:50-0400 Heart rate 94 /min Cass Harrison MD Work Phone: [employer] 06-21-2022 13:50-0400 Respiratory rate 18 /min Cass Harrison MD Work Phone: [employer] 06-21-2022 13:50-0400 SaO2% (BldA) [Mass fraction] 95 % Cass Harrison MD Work Phone: [employer] 06-21-2022 13:50-0400 Systolic blood pressure 113 mm[Hg] Cass Harrison MD Work Phone: [employer] 06-21-2022 11:12-0400 Body height 175.3 cm Cass Harrison MD Work Phone: [employer] 06-21-2022 11:12-0400 Body mass index (BMI) [Ratio] 31.04 kg/m2 Cass Harrison MD Work Phone: [facility] 06-21-2022 11:12-0400 Body temperature 98.1 [degF] Cass Harrison MD Work Phone: [facility] 06-21-2022 11:12-0400 Body weight 95.35 kg Cass Harrison MD Work Phone: [facility] 04-18-2021 21:04-0500 Body height 175.3 cm Festus Tolentino MD Work Phone: [facility] 04-18-2021 21:04-0500 Body mass index (BMI) [Ratio] 28.06 kg/m2 Festus Tolentino MD Work Phone: [facility] 04-18-2021 21:04-0500 Body temperature 98.6 [degF] Festus Tolentino MD Work Phone: [facility] 04-18-2021 21:04-0500 Body weight 86.18 kg Festus Tolentino MD Work Phone: [facility] 04-18-2021 21:04-0500 Diastolic blood pressure 73 mm[Hg] Festus Tolentino MD Work Phone: [facility] 04-18-2021 21:04-0500 Heart rate 124 /min Festus Tolentino MD Work Phone: [facility] 04-18-2021 21:04-0500 Respiratory rate 20 /min Festus Tolentino MD Work Phone: [facility] 04-18-2021 21:04-0500 SaO2% (BldA) [Mass fraction] 99 % Festus Tolentino MD Work Phone: [facility] 04-18-2021 21:04-0500 Systolic blood pressure 117 mm[Hg] Festus Tolentino MD Work Phone: [facility] 11-30-2020 16:28-0400 Body temperature 97.5 [degF] Festus Tolentino MD Work Phone: [facility] Work Phone: 11-30-2020 16:22-0400 Body height 175.3 cm Festus Tolentino MD Work Phone: [facility] Work Phone: 11-30-2020 16:22-0400 Body mass index (BMI) [Ratio] 28.31 kg/m2 Festus Tolentino MD Work Phone: [facility] Work Phone: 11-30-2020 16:22-0400 Body weight 86.95 kg Festus Tolentino MD Work Phone: [facility] Work Phone: 11-30-2020 16:22-0400 Diastolic blood pressure 61 mm[Hg] Festus Tolentino MD Work Phone: [facility] Work Phone: 11-30-2020 16:22-0400 Heart rate 119 /min Festus Tolentino MD Work Phone: [facility] Work Phone: 11-30-2020 16:22-0400 Respiratory rate 18 /min Festus Tolentino MD Work Phone: [facility] Work Phone: 11-30-2020 16:22-0400 SaO2% (BldA) [Mass fraction] 97 % Festus Tolentino MD Work Phone: [facility] Work Phone: 11-30-2020 16:22-0400 Systolic blood pressure 116 mm[Hg] Festus Tolentino MD Work Phone: [facility] Work Phone: 05-16-2020 09:04-0500 BP Diastolic 85 mm[Hg] [facility] Work Phone: 05-16-2020 09:04-0500 BP Systolic 140 mm[Hg] [facility] Work Phone: 05-16-2020 09:04-0500 Pulse (Heart Rate) 93 /min [facility] Work Phone: 05-16-2020 09:04-0500 Pulse Oximetry 98 % [facility] Work Phone: 05-16-2020 09:04-0500 Respiratory Rate 20 /min [facility] Work Phone: 05-16-2020 08:28-0500 Body Temperature 97.9 [degF] [facility] Work Phone: 05-16-2020 06:41-0500 BMI (Body Mass Index) 30.85 kg/m2 [facility] Work Phone: 05-16-2020 06:41-0500 Body weight 94.76 kg [facility] 05-16-2020 06:41-0500 Height [facility].3 cm [facility] Work Phone: 03-26-2020 09:40-0500 Pulse Oximetry 96 % [place] 03-26-2020 07:45-0500 Body Temperature 97.5 [degF] [place], [place] 03-26-2020 07:45-0500 BP Diastolic 69 mm[Hg] [place] 03-26-2020 07:45-0500 BP Systolic 110 mm[Hg] [place] 03-26-2020 07:45-0500 Pulse (Heart Rate) 88 /min [place], [place] 03-26-2020 07:45-0500 Respiratory Rate 16 /min [place] 03-26-2020 06:00-0500 BMI (Body Mass Index) 29 kg/m2 [place] 03-26-2020 06:00-0500 Body weight 91.67 kg [place] 03-23-2020 06:15-0500 Height 177.8 cm [place] Encounters Encounter Date Encounter Type Care Provider Facility Start: 10-17-2023 End: 10-18-2023 ambulatory OMID BACK [facility] Start: 10-11-2023 End: 10-11-2023 ambulatory SARA Schaefer [facility] Start: 10-08-2023 End: 10-08-2023 Emergency department patient visit Maxim Gutierrez DO Work Phone: [facility] ED Comment on above: Community acquired b ilateral lower lobe pneumonia (Primary Dx) Start: 09-30-2023 End: 09-30-2023 ambulatory MD Jose Rafael Deng Facility:[facility] Start: 09-18-2023 End: 09-18-2023 ambulatory Elder Akkina Facility:[facility] Start: 09-18-2023 End: 09-18-2023 Patient encounter procedure Elder Akkina [facility] Start: 08-20-2023 End: 08-20-2023 ambulatory Elder Akkina Facility:[facility] Start: 08-20-2023 End: 08-20-2023 Patient encounter procedure Elder Akkina [facility] Start: 07-09-2023 End: 07-09-2023 ambulatory FESTUS PEACE Not Available Start: 07-04-2023 End: 07-04-2023 ambulatory FESTUS PEACE Not Available Start: 07-03-2023 End: 07-05-2023 Evaluation and management of inpatient Festus Tolentino MD Work Phone: [facility] Comment on above: Diabetic ulcer of le midfoot associated with type 2 diabetes mellitus, unspecified ulcer stage (HCC) (Primary Dx); Foot ulcer, left, limited to breakdown of skin (HCC) Start: 06-06-2023 End: 06-08-2023 ambulatory [facility] Start: 06-06-2023 End: 06-08-2023 Subsequent hospital visit by physician Sara Lester DO Work Phone: [facility] Ultrasound Comment on above: HALEY (acute kidney in jury) ([facility]) Start: 05-21-2023 End: 05-21-2023 [facility] Start: 02-13-2023 End: 02-13-2023 [facility] Start: 01-17-2023 End: 01-19-2023 [facility] Start: 12-26-2022 End: 12-26-2022 ambulatory Zenon R Dolce Facility:[facility] Start: 12-20-2022 End: 12-20-2022 ambulatory SARA Silvano [facility] Start: 12-11-2022 End: 12-11-2022 ambulatory Zenon R Dolce Facility:[facility] Start: 12-11-2022 End: 12-11-2022 Patient encounter procedure Zenon R Dolce [facility] Start: 12-05-2022 End: 12-05-2022 ambulatory Zenon R Dolce Facility:[facility] Start: 11-28-2022 End: 11-28-2022 ambulatory Zenon R Dolce Facility:[facility] Start: 11-28-2022 End: 11-28-2022 Patient encounter procedure Zenon R Dolce [facility] Start: 11-21-2022 End: 11-21-2022 ambulatory Zenon R Dolce Facility:[facility] Start: 11-21-2022 End: 11-21-2022 Patient encounter procedure Zenon R Dolce [facility] Start: 11-06-2022 End: 11-06-2022 ambulatory Zenon R Dolce Facility:[facility] Start: 11-06-2022 End: 11-06-2022 Patient encounter procedure Zenon R Dolce [facility] Start: 11-01-2022 End: 02-24-2023 ambulatory Bill Ochoa Facility:[facility] Start: 11-01-2022 End: 02-24-2023 Recurring Bill Ochoa [facility] Start: 10-31-2022 End: 10-31-2022 ambulatory Zenon R Dolce Facility:[facility] Start: 10-31-2022 End: 10-31-2022 Patient encounter procedure Zenon R Dolce [facility] Start: 10-25-2022 End: 10-25-2022 ambulatory Bill Ochoa Facility:[facility] Start: 10-25-2022 End: 10-25-2022 Patient encounter procedure Bill Ochoa [facility] Start: 10-17-2022 End: 10-17-2022 ambulatory Zenon R Dolce Facility:[facility] Start: 10-17-2022 End: 10-17-2022 Patient encounter procedure Zenon R Dolce [facility] Start: 10-15-2022 End: 10-15-2022 ambulatory Zenon R Dolce Facility:[facility] Start: 10-15-2022 End: 10-15-2022 Patient encounter procedure Zenon R Dolce [facility] Start: 10-10-2022 End: 10-10-2022 ambulatory Zenon R Dolce Facility:[facility] Start: 10-10-2022 End: 10-10-2022 Patient encounter procedure Zenon R Dolce [facility] Start: 10-02-2022 End: 10-03-2022 Observation Perlayang Blumgraceestrella [facility] Start: 10-02-2022 End: 10-03-2022 ambulatory Anthony Mansfield Facility:[facility] Start: 09-26-2022 End: 09-26-2022 ambulatory Zenon R Dolce Facility:[facility] Start: 09-26-2022 End: 09-26-2022 Patient encounter procedure Zenon R Dolce [facility] Start: 09-24-2022 End: 09-24-2022 ambulatory Zenon R Dolce Facility:[facility] Start: 09-24-2022 End: 09-24-2022 Patient encounter procedure Zenon R Dolce [facility] Start: 09-21-2022 End: 09-21-2022 ambulatory Zenon R Dolce Facility:[facility] Start: 09-21-2022 End: 09-21-2022 Patient encounter procedure Zenon R Wilmerce [facility] Start: 09-19-2022 End: 09-19-2022 ambulatory Zenon R Dolce Facility:[facility] Start: 09-19-2022 End: 09-19-2022 Patient encounter procedure Zenon R Wilmerce [facility] Start: 09-17-2022 End: 09-17-2022 ambulatory Zenon R Dolce Facility:[facility] Start: 09-17-2022 End: 09-17-2022 Patient encounter procedure Zenon R Wil[place] [facility] Start: 09-14-2022 End: 09-15-2022 ambulatory Zenon R Dolce Facility:[facility] Start: 09-14-2022 End: 09-15-2022 Pre-admission assessment Zenon R Wilmerce [facility] Start: 09-12-2022 End: 09-12-2022 ambulatory Zenon R Dolce Facility:[facility] Start: 09-12-2022 End: 09-13-2022 Pre-admission assessment Zenon R Wilmerce [facility] Start: 09-10-2022 End: 09-10-2022 ambulatory Zenon R Dolce Facility:[facility] Start: 09-10-2022 End: 09-11-2022 Pre-admission assessment Zenon R Dolce [facility] Start: 09-07-2022 End: 09-07-2022 ambulatory Zenon R Dolce Facility:[facility] Start: 09-07-2022 End: 09-07-2022 Patient encounter procedure Zenon R Dolce [facility] Start: 09-05-2022 End: 09-05-2022 ambulatory Zenon R Dolce Facility:[facility] Start: 09-03-2022 End: 09-03-2022 ambulatory Zenon Santiago Facility:[facility] Start: 09-03-2022 End: 09-03-2022 Patient encounter procedure Zenon Santiago [facility] Start: 08-31-2022 End: 08-31-2022 ambulatory Zenon Santiago Facility:[facility] Start: 08-31-2022 End: 08-31-2022 Patient encounter procedure Zenon Santiago [facility] Start: 08-29-2022 End: 08-29-2022 Patient encounter procedure Zenon Santaigo [facility] Start: 08-27-2022 End: 08-27-2022 Patient encounter procedure Zenon Santiago [facility] Start: 08-24-2022 End: 08-24-2022 Patient encounter procedure Zenon Santiago [facility] Start: 08-20-2022 End: 08-20-2022 Patient encounter procedure Zenon Santiago [facility] Start: 08-15-2022 End: 08-15-2022 Patient encounter procedure Zenon Santiago [facility] Start: 08-09-2022 End: 08-14-2022 Evaluation and management of inpatient Bonifacio Cisneros [facility] Start: 07-05-2022 End: 07-05-2022 Lab Drop off Zenon Santiago [facility] Start: 06-30-2022 End: 06-30-2022 Subsequent hospital visit by physician Sara Lester DO Work Phone: [facility] Start: 06-26-2022 End: 06-30-2022 Evaluation and management of inpatient Cass Harrison MD Work Phone: [facility] Comment on above: Osteomyelitis of gre at toe (HCC) (Primary Dx); Cellulitis of foot; Hyperglycemia Start: 06-21-2022 End: 06-21-2022 Emergency department patient visit Cass Harrison MD Work Phone: [facility] ED Comment on above: Abscess or celluliti s of toe, left (Primary Dx); Wound infection Start: 06-11-2022 End: 06-11-2022 Patient encounter procedure Bill Ochoa [facility] Start: 06-06-2022 End: 06-06-2022 Patient encounter procedure Zenon Santiago [facility] Start: 05-23-2022 End: 05-23-2022 Patient encounter procedure Zenon Santiago [facility] Start: 05-02-2022 End: 05-02-2022 Patient encounter procedure Zenon Santiago [facility] Start: 04-30-2022 End: 04-30-2022 Patient encounter procedure Zenon Santiago [facility] Start: 04-16-2022 End: 04-18-2022 [facility]: Decreased pulse Start: 04-04-2022 End: 04-04-2022 Patient encounter procedure Zenon Santiago [facility] Start: 04-02-2022 End: 04-02-2022 Patient encounter procedure Zenon Santiago [facility] Start: 03-28-2022 End: 03-28-2022 Patient encounter procedure Zenon Santiago [facility] Start: 02-19-2022 End: 02-21-2022 Subsequent hospital visit by physician [facility] MRI Comment on above: Full incontinence of feces; Chronic midline low back pain without sciatica Start: 12-04-2021 End: 12-04-2021 Emergency department patient visit TITO Nain [facility] Start: 11-29-2021 End: 11-29-2021 Patient encounter procedure Zenon Santiago [facility] Start: 11-17-2021 End: 11-17-2021 Subsequent hospital visit by physician Sara Lester DO Work Phone: [facility] Laboratory Comment on above: Type 2 diabetes evonne itus with diabetic polyneuropathy, with long-term current use of insulin ([facility]) Start: 11-01-2021 End: 11-01-2021 Patient encounter procedure Zenon Santiago [facility] Start: 10-18-2021 End: 10-18-2021 Patient encounter procedure Zenon Santiago [facility] Start: 10-11-2021 End: 10-11-2021 Patient encounter procedure Zenon Santiago [facility] Start: 10-04-2021 End: 10-04-2021 Patient encounter procedure Zenon Santiago [facility] Start: 09-27-2021 End: 09-27-2021 Patient encounter procedure Zenon Santiago [facility] Start: 09-20-2021 End: 09-20-2021 Patient encounter procedure Zenon Santiago [facility] Start: 09-18-2021 End: 09-18-2021 Patient encounter procedure Zenon Santiago [facility] Start: 09-12-2021 End: 09-20-2021 [facility] Start: 09-12-2021 End: 09-12-2021 Patient encounter procedure Maxim Santiago [facility] Start: 09-06-2021 End: 09-06-2021 Patient encounter procedure Zenon Santiago [facility] Start: 08-30-2021 End: 08-30-2021 Patient encounter procedure Zenon Santiago [facility] Start: 08-14-2021 End: 08-14-2021 Patient encounter procedure Zenon Santiago [facility] Start: 07-31-2021 End: 07-31-2021 Patient encounter procedure Zenon Santiago [facility] Start: 07-17-2021 End: 07-17-2021 Patient encounter procedure Zenon Santiago [facility] Start: 07-03-2021 End: 07-11-2021 Pre-admission assessment Zenon Santiago [facility] Start: 07-03-2021 End: 07-03-2021 Patient encounter procedure Zenon Santiago [facility] Start: 06-19-2021 End: 06-27-2021 Pre-admission assessment Zenon Santiago [facility] Start: 06-19-2021 End: 06-19-2021 Patient encounter procedure Zenon Santiago [facility] Start: 06-12-2021 End: 09-10-2021 Recurring SARA LESTER [facility] Start: 06-12-2021 End: 09-10-2021 Special examination status SARAKRISTOPHER LESTER [facility] Start: 06-05-2021 End: 06-05-2021 Patient encounter procedure Zenon Santiago [facility] Start: 04-18-2021 End: 04-18-2021 Emergency department patient visit Festus Tolentino MD Work Phone: [facility] ED Comment on above: Subacute bronchitis (Primary Dx); Lab test negative for COVID-19 virus Start: 12-14-2020 End: 12-16-2020 Subsequent hospital visit by physician Bong [facility] MRI Comment on above: Charcot's joint of r ight foot; Cellulitis of right foot; Diabetic neuropathic arthropathy (HCC) Start: 11-30-2020 End: 11-30-2020 Emergency department patient visit Festus Tolentino MD Work Phone: [facility] ED Comment on above: Cellulitis of right foot (Primary Dx); Type 2 diabetes mellitus with hyperglycemia, with long-term current use of insulin (HCC) Start: 11-15-2020 End: 11-15-2020 Subsequent hospital visit by physician Sara Lester DO Work Phone: [facility] Comment on above: Paronychia of great [...] management of inpatient Hugo Butler Work Phone: [facility] Comment on above: Osteomyelitis of rig ht foot, unspecified type (HCC) (Primary Dx); Cellulitis of right foot Start: 03-12-2019 End: 03-12-2019 Subsequent hospital visit by physician Sara Lester DO Work Phone: [facility] Comment on above: Type 2 diabetes evonne itus with diabetic polyneuropathy, with long-term current use of insulin ([facility]) Start: 10-20-2018 End: 10-20-2018 Subsequent hospital visit by physician Sara Lester [facility] Comment on above: Diabetic polyneuropa thy associated with type 2 diabetes mellitus ([facility]) Procedures Date Procedure Procedure Detail Performing Clinician Start: 10-08-2023 Radex foot complete minimum 3 views Maxim Gutierrez DO Work Phone: Start: 10-08-2023 Radiologic exam ches t single view Maxim Gutierrez DO Work Phone: Start: 10-08-2023 Comprehensive metabo lic panel Maxim Gutierrez DO Work Phone: Start: 07-05-2023 Gluc bld gluc [...] retroperitoneal r eal time w/image complete Sara Silvano Jose Rafaelveenademetrio DO Work Phone: Start: 06-30-2022 Ecg routine [...] panel Cass Harrison MD Work Phone: Start: 04-13-2023 Radex foot complete minimum 3 views Cass Harrison MD Work Phone: Start: 04-16-2022 Non-invasive physiol ogic study extremity 3 levls Sara Lester DO Work Phone: Start: 02-19-2022 Mri spinal canal lum bar w/o & w/contr matrl Sara Lester DO Work Phone: Start: 11-17-2021 Comprehensive metabo lic panel Sara Lester DO Work Phone: Start: 11-17-2021 Lipid panel [...] Peace Work Phone: Start: 05-16-2020 COVID-19, RAPID Jeffrey Dimas Work Phone: Start: 05-13-2020 Ecg routine [...] d ev cleared fda spec home use [employer] Work Phone: Start: 03-26-2020 Gluc bld gluc mntr d ev cleared fda spec home use [employer] Work Phone: Start: 03-25-2020 Gluc bld gluc mntr d ev cleared fda spec home use [employer] Work Phone: Start: 03-25-2020 Gluc bld gluc mntr d ev cleared fda spec home use [employer] Work Phone: Start: 03-25-2020 Gluc bld gluc mntr d ev cleared fda spec home use [employer] Work Phone: Start: 03-25-2020 Gluc bld gluc mntr d ev cleared fda spec home use [employer] Work Phone: Start: 03-24-2020 Gluc bld gluc mntr d ev cleared fda spec home use [employer] Work Phone: Start: 03-24-2020 Gluc bld gluc mntr d ev cleared fda spec home use [employer] Work Phone: Start: 03-24-2020 Gluc bld gluc mntr d ev cleared fda spec home use [employer] Work Phone: Start: 03-24-2020 Gluc bld gluc mntr d ev cleared fda spec home use [employer] Work Phone: Start: 03-24-2020 Basic metabolic pane l calcium total Festus Peace Work Phone: Start: 03-23-2020 Gluc bld gluc mntr d ev cleared fda spec home use [employer] Work Phone: Start: 03-23-2020 Level iv surg pathol ogy gross&microscopic exam Festus Peace Work Phone: Start: 03-23-2020 Drug screen quantita tive vancomycin Festus Peace Work Phone: Start: 03-23-2020 Gluc bld gluc mntr d ev cleared fda spec home use [employer] Work Phone: Start: 03-23-2020 Cul prsmptv pthgnc o rganism scrn w/[place] estimj Festus Peace Work Phone: Start: 03-23-2020 End: 03-23-2020 Amputation of toe Festus Peace Work Phone: Start: 03-23-2020 End: 03-23-2020 Gluc bld gluc mntr dev cleared fda spec home use [employer] Work Phone: Start: 03-23-2020 Basic metabolic pane l calcium total [employer] Work Phone: Start: 03-22-2020 Gluc bld gluc mntr d ev cleared fda spec home use [employer] Work Phone: Start: 03-22-2020 Gluc bld gluc mntr d ev cleared fda spec home use [facility] Work Phone: Start: 03-22-2020 Gluc bld gluc mntr d ev [facility]: Start: 03-22-2020 Gluc bld gluc mntr d ev cleared fda spec home [facility]: Start: 03-22-2020 Basic metabolic pane l calcium total [facility] Work Phone: Start: 03-22-2020 Blood count complete auto&auto difrntl wbc [facility] Work Phone: Start: 03-21-2020 Drug screen quantita tive vancomycin [facility] Work Phone: Start: 03-21-2020 Gluc bld gluc mntr d ev cleared fda spec home [facility]: Start: 03-21-2020 Gluc bld gluc mntr d ev cleared fda spec home [facility]: Start: 03-21-2020 Mri lower extrem oth /thn jt w/o & w/contr matr Festus Peace Work Phone: Start: 03-21-2020 Cul bact xcpt urine blood/stool aerobic isol Festus Peace Work Phone: Start: 03-21-2020 End: 03-21-2020 Gluc bld gluc mntr dev cleared fda spec [facility] Work Phone: Start: 03-21-2020 Assay of magnesium Bill y Back Work Phone: Start: 03-21-2020 BASIC METABOLIC PANE L W/ REFLEX TO MG FOR LOW K Omdi Back Work Phone: Start: 03-21-2020 Blood count [...] Back Work Phone: Start: 03-20-2020 COVID-19 Hugo Gee Vivi oneillisraelvivi Work Phone: Start: 03-20-2020 Radex foot complete minimum 3 views Hugo Butler Work Phone: Start: 03-20-2020 Blood count complete auto&auto difrntl wbc Hugo Butler Work Phone: Start: 03-20-2020 Comprehensive metabo lic panel Hugo Butler Work Phone: Start: 03-20-2020 Cul bact xcpt urine blood/stool aerobic isol Hugo Butler Work Phone: Start: 03-20-2020 CULTURE, BLOOD 1 Hugo Butler Work Phone: Start: 03-20-2020 Lactate [Moles/Vol] Marshall jaimee Butler Work Phone: Start: 03-20-2020 Hemoglobin glycosylated a1c Omid Back Work Phone: Start: 03-12-2019 Comprehensive metabo lic panel Sara Lester DO Work Phone: Start: 03-12-2019 Lipid panel Sara Lester DO Work Phone: Start: 03-12-2019 PATIENT FASTING? Mae Lester DO Work Phone: Start: 10-20-2018 Comprehensive metabo lic panel Sara Lester Work Phone: Start: 10-20-2018 Hemoglobin glycosylated a1c Sara Lester Work Phone: Start: 10-20-2018 Urine albumin quantitative Sara Lester Work Phone: hernia repair X 3 Zenon Dol ce Lasik left eye Zenon Santiago Plan of Treatment Date Care Activity Detail Author Start: 08-05-2028 DTaP/Tdap/Td vaccine (3 - Td or Tdap) DTaP/Tdap/Td vaccine (3 - Td or Tdap) [facility] Start: 08-05-2028 DTaP/Tdap/Td vaccine (3 - Td) DTaP/Tdap/Td vaccine (3 - Td) [place], [place] Start: 2026 Pneumococcal 0-64 ye ars Vaccine (2 of 2 - PPSV23) Pneumococcal 0-64 years Vaccine (2 of 2 - PPSV23) [facility] Start: 2026 Pneumococcal 0-64 ye ars Vaccine (3 - PPSV23 if available, else PCV20) Pneumococcal 0-64 years Vaccine (3 - PPSV23 if available, else PCV20) [facility] Start: 2026 Pneumococcal 0-64 ye ars Vaccine (3 - PPSV23 or PCV20) Pneumococcal 0-64 years Vaccine (3 - PPSV23 or PCV20) [facility] Start: 2026 Pneumococcal 0-64 ye ars Vaccine (3 of 3 - PPSV23 or PCV20) Pneumococcal 0-64 years Vaccine (3 of 3 - PPSV23 or PCV20) [facility] Start: 10-07-2024 GFR test (Diabetes, CKD 3-4, OR last GFR 15-59) GFR test (Diabetes, CKD 3-4, OR last GFR 15-59) [facility] Start: 07-03-2024 GFR test (Diabetes, CKD 3-4, OR last GFR 15-59) GFR test (Diabetes, CKD 3-4, OR last GFR 15-59) [facility] Start: 05-20-2024 Diabetic foot examination Diabetic f oot exam [facility] Start: 05-20-2024 GFR test (Diabetes, CKD 3-4, OR last GFR 15-59) GFR test (Diabetes, CKD 3-4, OR last GFR 15-59) [facility] Start: 05-20-2024 Urine screening for protein Diabetic Alb to Cr ratio (uACR) test [facility] Start: 03-19-2024 Depression Monitoring Depression Mon itoring [facility] [facility] Start: 02-14-2024 Lipid panel Lipids [facility] Start: 10-11-2023 End: 10-11-2023 Patient encounter procedure 10/11/2023 8:40 AM EDT [facility] [address] [place] [address] Sara Lester DO [address] [place] [address] 1 mos - DM [facility] Comment on above: 1 mos - DM Start: 10-10-2023 Influenza vaccination Flu vaccine (# 1) [facility] Start: 10-02-2023 Hemoglobin A1c measurement A1C test (Diabetic or Prediabetic) [facility] Start: 08-27-2023 End: 08-27-2023 Patient encounter procedure 08/27/2023 9:00 AM EDT Office Visit [facility] [place] [address] [facility] [place] [address] Sara Lester DO [address] [place] [address] 3 mon check DM [facility] [place] Comment on above: 3 mon check DM Start: 08-21-2023 Hemoglobin A1c measurement A1C test (Diabetic or Prediabetic) [facility] Start: 07-09-2023 End: 07-09-2023 Patient encounter procedure 07/09/2023 10:00 AM EDT [facility] [address] [place] [address] Sara Lester, DO [address] [place] [address] discharged 07/06/23 [facility] [place] Comment on above: discharged 07/06/23 Start: 07-01-2023 GFR test (Diabetes, CKD 3-4, OR last GFR 15-59) GFR test (Diabetes, CKD 3-4, OR last GFR 15-59) [facility] Start: 06-22-2023 GFR test (Diabetes, CKD 3-4, OR last GFR 15-59) GFR test (Diabetes, CKD 3-4, OR last GFR 15-59) [facility] Start: 04-10-2023 Depression Monitoring Depression Mon itoring [facility] Start: 04-10-2023 Diabetic foot examination Diabetic f oot exam [facility] Start: 02-09-2023 GFR test (Diabetes, CKD 3-4, OR last GFR 15-59) GFR test (Diabetes, CKD 3-4, OR last GFR 15-59) [facility] Start: 11-17-2022 Hemoglobin A1c measurement A1C test (Diabetic or Prediabetic) [facility] Start: 11-17-2022 Lipid panel Lipids [facility] Start: 07-04-2022 End: 07-04-2022 Patient encounter procedure 07/04/2022 Office Visit Family Medicine Sara Lester DO [address] [place] [address] [facility] Start: 07-02-2022 End: 07-02-2022 Patient encounter procedure 07/02/2022 Office Visit Family Sara Estes DO [address] [place] [address] [facility] Start: 07-01-2022 Hemoglobin A1c measurement A1C test (Diabetic or Prediabetic) [facility] Start: 04-21-2022 Depression Monitoring Depression Mon itoring [facility] [employer] Start: 11-30-2021 Creatinine measurement Creatinine mo [facility] [employer] Start: 11-30-2021 Potassium monitoring Potassium monit [facility] Start: 11-15-2021 Creatinine measurement Creatinine mo [facility] [employer] Work Phone: Start: 11-15-2021 Potassium monitoring Potassium monit [facility] [employer] Work Phone: Start: 11-09-2021 Influenza vaccination Flu vaccine (# 1) [facility] Start: 07-19-2021 Hemoglobin A1c measurement A1C test (Diabetic or Prediabetic) [facility] Start: 07-01-2021 Diabetic foot examination Diabetic f oot exam [facility] [employer] Start: 05-13-2021 Creatinine measurement Creatinine mo [facility] [employer] Work Phone: Start: 05-13-2021 Diabetic microalbumi kristopher test Diabetic microalbuminuria test [facility] [employer] Work Phone: Start: 05-13-2021 Lipid panel [facility] Start: 05-13-2021 Potassium monitoring Potassium monit [facility] [employer] Work Phone: Start: 05-13-2021 Urine screening for protein [facility] [employer] Start: 05-05-2021 Screening for malign ant neoplasm of colon [facility] Start: 03-24-2021 Creatinine measurement Creatinine mo [place] Start: 03-24-2021 Potassium monitoring Potassium monit [place], [place] Start: 02-21-2021 End: 02-21-2021 Patient encounter procedure 02/21/2021 Office Visit Family Medicine Sara Lester, DO [address] [place] [address] [facility] [place] Start: 02-14-2021 Hemoglobin A1c measurement A1C test (Diabetic or Prediabetic) [facility] Start: 2021 Respiratory Syncytia l Virus (RSV) or age 60 yrs+ (1 - 1-dose 60+ series) Respiratory Syncytial Virus (RSV) or age 60 yrs+ (1 - 1-dose 60+ series) [facility] Start: 12-13-2020 End: 12-13-2020 Patient encounter procedure 12/13/2020 Office Visit Family Medicine Sara Lester DO [address] [place] [phone] [facility] Start: 11-09-2020 Influenza [facility] (# [facility] Start: 08-13-2020 HbA1c (Bld) [Mass fraction] A1C test (Diabetic or Prediabetic) [employer] Phone: Start: 08-13-2020 Hemoglobin A1c measurement A1C test (Diabetic or Prediabetic) [facility] Start: 07-11-2020 End: 07-11-2020 Office Visit 07/11/2020 Office Visit Family Medicine Sara Lester DO [address] [place] [address] [facility] Start: 06-18-2020 HbA1c (Bld) [Mass fraction] A1C test (Diabetic or Prediabetic) [facility] Start: 05-24-2020 End: 05-24-2020 Office Visit 05/24/2020 Office Visit Family Sara Estes DO [address] [place] [address] [facility] Start: 05-16-2020 End: 05-16-2020 Hospital Encounter [facility] [place] Comment on above: I AND D OF RIGHT FIF TH METATARSAL AND EXCESION OF BONE RIGHT FIFTH METATARSAL Start: 05-16-2020 End: 05-16-2020 Appointment 05/16/2020 Appointment Pre-Admission Testing [facility] PRE ADMIT Start: 03-12-2020 A1C test (Diabetic o r Prediabetic) A1C test (Diabetic or Prediabetic) [facility] Start: 03-12-2020 Creatinine monitoring Creatinine mon [employer] [facility] [employer] Phone: Start: 03-12-2020 Lipid panel Lipid screen [place] Start: 03-12-2020 Lipid screen Lipid screen [facility] [employer] Phone: Start: 03-12-2020 [address] Potassium monit [facility] [employer] Phone: Start: 02-22-2020 Shingles Vaccine (2 of 2) Shingles V accine (2 of 2) [place], [place] Start: 01-21-2020 3 comp foot exam completed [facility] Start: 01-21-2020 Diabetic foot examination Diabetic f oot exam [place] Start: 10-22-2019 Colon Cancer Screen FIT/FOBT Colon Cancer Screen FIT/FOBT [facility] [employer] Phone: Start: 10-22-2019 Screening for malign ant neoplasm of colon Colon Cancer Screen FIT/FOBT [place] Start: 10-21-2019 Diabetic microalbumi kristopher test Diabetic microalbuminuria test [facility] [employer] Phone: Start: 09-06-2019 Diabetic retinal exam Diabetic retin al exam [facility] [employer] Start: 09-06-2019 Glaucoma screening Diabetic retinal exam [facility]RES [facility] [employer] Start: 04-22-2019 End: 04-22-2019 Patient encounter procedure 04/22/2019 Office Visit Family Medicine Sara Lester, DO [address] [place] [address] [facility] [place] Start: 12-03-2018 Creatinine monitoring Creatinine mon [place] Start: 12-03-2018 Lipid screen Lipid screen [place], [place] Start: 12-03-2018 Potassium monitoring Potassium monit [place] Start: 11-09-2018 Influenza vaccination Flu vaccine (# 1) [place] Start: 10-21-2018 End: 10-21-2018 Office Visit 10/21/2018 Office Visit Family Medicine Sara Lester, DO [address] [place] [address] [facility] [place] Start: 06-21-2018 [object Object] Diabetic foot exam [place] Start: 06-21-2018 Diabetic microalbumi kristopher test Diabetic microalbuminuria test [place] Start: 03-04-2018 A1C test (Diabetic o r Prediabetic) A1C test (Diabetic or Prediabetic) [place] Start: 10-16-2017 Colon Cancer Screen FIT/FOBT Colon Cancer Screen FIT/FOBT [place] Start: 09-25-[address] lung screening Low dose CT lung screening [place] Start: 09-25-2017 Screening for malign ant neoplasm of lung Low dose CT lung screening [facility] Start: 2011 Shingles Vaccine (1 of 2) Shingles V accine (1 of 2) [place] Start: 2006 Screening for malign ant neoplasm of colon [facility] Start: 01-09-1980 Hepatitis B Vaccine (1 of 3 - Risk 3-dose series) Hepatitis B Vaccine (1 of 3 - Risk 3-dose series) [place] Start: 1973 COVID-19 Vaccine (1) COVID-19 Vaccin e (1) [facility] Work Phone: Start: 1973 Depression Monitoring Depression [facility] Start: 1967 Pneumococcal 0-64 ye ars Vaccine (1 of 1 - PPSV23) Pneumococcal 0-64 years Vaccine (1 of 1 - PPSV23) [place] Start: 1966 COVID-19 Vaccine (1) COVID-19 Vaccin e (1) [facility] Start: 1961 COVID-19 Vaccine (#1) COVID-19 Vacci ne (#1) [facility] End: 07-02-2022 Basic Metabolic Panel w/ Reflex to MG Basic Metabolic Panel w/ Reflex to MG Lab Routine Daily for 5 Days starting 06/28/2022 until 07/02/2022, 3 completed [employer] Work Phone: Comment on above: Daily for 5 Days sta rting 06/28/2022 until 07/02/2022, 3 completed Blood Culture 1 Blood Culture 1 Microbiology STAT 07/03/2023 4:55 PM EDT [employer] End: 10-08-2023 Blood Culture 1 [employer] Comment on above: One Time for 1 Occur rences starting 10/08/2023 until 10/08/2023 Culture, Anaerobic a nd Aerobic [facility]- [place], [place] Comment on above: Release Upon Orderin g for 1 Occurrences starting 05/16/2020 Culture, Blood 1 Culture, Blood 1 Microbiology Routine 06/26/2022 2:26 PM EDT [employer] Work Phone: Culture, Blood 2 Culture, Blood 2 Microbiology Stat [employer] Label print 06/26/2022 2:15 PM EDT [employer] Work Phone: Culture, Blood 2 Culture, Blood 2 Microbiology Stat [employer] Label print 07/03/2023 5:00 PM EDT [employer] End: 10-08-2023 Culture, Blood 2 [employer] Comment on above: One Time for 1 Occur rences starting 10/08/2023 until 10/08/2023 Culture, Wound Culture, Wound Microbiology [employer] Label Print 07/04/2023 9:18 AM EDT [employer] EKG 12 lead EKG 12 lead ECG Routine 05/13/2020 8:51 AM EST [employer] Work Phone: EKG 12 Lead EKG 12 Lead ECG Routine 06/30/2022 10:05 AM EDT [employer] Work Phone: Glucose [Mass/volume ] in Serum or Plasma [employer] Work Phone: Comment on above: 4X Daily (AC & HS) u ntil discontinued starting 06/26/2022 As Needed until disc ontinued starting 06/26/2022 Glucose [Mass/volume ] in Serum or Plasma [facility] [employer] Comment on above: 4X Daily (AC & HS) u ntil discontinued starting 07/03/2023 As Needed until disc ontinued starting 07/03/2023 End: 11-15-2020 Hemoglobin A1c/Hemoglobin.total in Blood Hemoglobin A1C Lab Routine Diabetic polyneuropathy associated with type 2 diabetes mellitus (HCC) 1 Occurrences starting 11/15/2020 until 11/15/2020 [employer] Phone: Comment on above: 1 Occurrences starti ng 11/15/2020 until 11/15/2020 Hemoglobin A1c/Hemoglobin.total in Blood Hemoglobin A1C Lab Routine Diabetic polyneuropathy associated with type 2 diabetes mellitus (HCC) 11/15/2020 2:01 PM EDT [employer] Phone: Oxygen therapy [Mini mum Data Set] Initiate Oxygen Therapy Protocol Respiratory Care Routine Daily until discontinued starting 03/20/2020 [facility]: Daily until disconti nued starting 03/20/2020 Oxygen therapy [Mini mum Data Set] Initiate Oxygen Therapy Protocol Respiratory Care Routine As Needed until discontinued starting 06/26/2022 [facility] [employer] Phone: Comment on above: As Needed until disc ontinued starting 06/26/2022 Oxygen therapy [Mini mum Data Set] Initiate Oxygen Therapy Protocol Respiratory Care Routine As Needed until discontinued starting 07/03/2023 [facility] [employer] Comment on above: As Needed until disc ontinued starting 07/03/2023 POCT glucose [facility] Comment on above: 4X Daily (AC & HS) u ntil discontinued starting 03/20/2020 As Needed until disc ontinued starting 03/20/2020 [facility] Comment on above: Release Upon Orderin g for 1 Occurrences starting 05/16/2020 Release Upon Orderin g for 1 Occurrences starting 03/23/2020 End: 04-18-2021 XR CHEST PORTABLE [employer] Phone: Comment on above: Once for 1 Occurrenc es starting 04/18/2021 until 04/18/2021 Immunizations Immunization Date Immunization Notes Care Provider Andrew fletcher 01-03-2023 Influenza, injectabl e, Madin Teresa Canine Kidney, preservative free, quadrivalent Sara Yonley DO Work Phone: [facility] [employer] 01-15-2022 influenza, injectabl e, quadrivalent, preservative free [facility] [employer] Work Phone: 12-15-2020 influenza, injectabl e, quadrivalent, preservative free Sara Yonley DO Work Phone: [facility] [employer] Work Phone: 12-15-2020 pneumococcal conjuga te vaccine, 13 valent Sara Yonley DO Work Phone: [facility] [employer] Work Phone: 05-25-2020 zoster vaccine recombinant [facility] [employer] Work Phone: 12-28-2019 influenza virus vacc ine, unspecified formulation Sara Yonley DO Work Phone: [facility] [employer] Work Phone: 12-28-2019 influenza, injectabl e, quadrivalent, contains preservative [facility] 12-28-2019 zoster vaccine recombinant [place], [place] 01-20-2019 influenza, injectabl e, quadrivalent, preservative free Sara Yonley DO Work Phone: [facility] [employer] Phone: 01-20-2019 pneumococcal polysaccharide vaccine, 23 valent Sara [facility]ley DO [facility] Phone: 08-05-2018 tetanus toxoid, redu kavon diphtheria toxoid, and acellular pertussis vaccine, adsorbed [facility] 12-06-2016 tetanus toxoid, redu kavon diphtheria toxoid, and acellular pertussis vaccine, adsorbed Sara Yonley [facility] 11-19-2016 influenza, injectabl e, quadrivalent, contains preservative Sara [employer] Payers Date Payer Category Payer Medicare [id number] 2022 Medicare [id number] 2022 Private Health Insurance [id number] 2022 Private Health Insurance [id number] 2022 Medicare [id number] 2018 Unknown [employer] xxxxxxxxxxxx 2018-Present [phone] [facility] [address] [place] [address] xxxxxxxxxxxx [id number] .[id number] 2016 Unknown [id number] 1.2.840.505665.1.13.239.2 .7.3.529340.315 1961 Unknown [id number] 2.16.840.1.211406.3.579.2 .983 1961 Unknown [id number] 2.16.840.1.225492.3.579.2 .1259 1961 Unknown [id number] 2.16.840.1.390470.3.579.2 .1259 1961 Unknown [id number] 2.16.840.1.979506.3.579.2 .727 1961 Unknown [id number] 2.16.840.1.451170.3.579.2 .727 1961 Unknown [id number] 2.16.840.1.213437.3.579.2 .727 1961 Unknown [id number] 2.16.840.1.710463.3.579.2 .727 1961 Unknown [id number] 2.16.840.1.130030.3.579.2 .727 1961 Unknown [id number] 2.16.840.1.733939.3.579.2 .727 1961 Unknown [id number] 2.16.840.1.697620.3.579.2 .727 1961 Unknown [id number] 2.16.840.1.289140.3.579.2 .72 1961 Unknown [id number] 2.16.840.1.773011.3.579.2 .72 1961 Unknown [id number] 2.16.840.1.520991.3.579.2 .72 1961 Unknown [id number] 2.16.840.1.577341.3.579.2 .72 1961 Unknown [id number] 2.16.840.1.900205.3.579.2 .72 1961 Unknown [id number] 2.16.840.1.361406.3.579.2 .72 1961 Unknown [id number] 2.16.840.1.424660.3.579.2 .72 1961 Unknown [id number] 2.16.840.1.734693.3.579.2 .727 1961 Unknown [id number] 2.16.840.1.421635.3.579.2 .72 1961 Unknown [id number] 2.16.840.1.468595.3.579.2 .727 1961 Unknown [id number] 2.16.840.1.539317.3.579.2 .72 1961 Unknown [id number] 2.16.840.1.071599.3.579.2 .727 1961 Unknown [id number] 2.16.840.1.196614.3.579.2 .727 1961 Unknown [id number] 2.16.840.1.145254.3.579.2 .727 1961 Unknown [id number] 2.16.840.1.918472.3.579.2 .727 1961 Unknown [id number] 2.16.840.1.841538.3.579.2 .727 1961 Unknown [id number] 2.16.840.1.142050.3.579.2 .727 1961 Unknown [id number] 2.16.840.1.744182.3.579.2 .727 1961 Unknown [id number] 2.16.840.1.540502.3.579.2 .727 1961 Unknown [id number] 2.16.840.1.738401.3.579.2 .727 1961 Unknown [id number] 2.16.840.1.751021.3.579.2 .727 1961 Unknown [id number] 2.16.840.1.130815.3.579.2 .727 1961 Unknown [id number] 2.16.840.1.878106.3.579.2 .174 1961 Unknown [id number] 2.16.840.1.330048.3.579.2 .174 1961 Unknown [id number] 2.16.840.1.175481.3.579.2 .174 1961 Unknown [id number] 2.16.840.1.582271.3.579.2 .174 1961 Unknown [id number] 2.16.840.1.429492.3.579.2 .174 1961 Unknown [id number] 2.16.840.1.073584.3.579.2 .174 1961 Unknown [id number] 2.16.840.1.592816.3.579.2 .174 1961 Unknown [id number] 2.16.840.1.590101.3.579.2 .174 1961 Unknown [id number] 2.16.840.1.260771.3.579.2 .174 1961 Unknown [id number] 2.16.840.1.959856.3.579.2 .174 1961 Unknown [id number] 2.16.840.1.939641.3.579.2 .174 1961 Unknown [id number] 2.16.840.1.246620.3.579.2 .174 Social History Date Type Detail Facility Start: 08-05-2018 End: 03-19-2023 Tobacco smoking status NHIS Former smoker [place], [place] Comment on above: pt states he quit in 2007 Start: 10-11-1967 End: 10-11-2007 History of tobacco use Current smoker [place] Start: 10-11-1967 End: 10-11-2007 History of tobacco use Cigarette Smoker [place] Start: 08-05-2018 End: 07-03-2023 Cigarettes smoked current (pack per day) - Reported [facility] [employer] Start: 08-05-2018 End: 07-03-2023 Alcohol intake No [place], [place] Start: 1960 Sex Assigned At Not on file [place] Start: 04-12-2020 End: 03-19-2023 Tobacco use and exposure [facility] [place] Start: 04-12-2020 End: 10-08-2023 Alcohol intake Current non-drinker of alcohol (finding) [employer] Phone: Start: 04-12-2020 End: 04-21-2021 History SDOH Financial 5 [employer] Phone: Start: 04-12-2020 End: 04-21-2021 History SDOH Food Worry 1 [facility] Work Phone: Start: 06-11-2022 End: 06-26-2022 Exposure to SARS-CoV-2 (event) Not sure [facility] Start: 06-21-2022 End: 06-26-2022 History SDOH Alcohol Std Drinks 0 [employer] Work Phone: How often to you hav e a drink containing alcohol? Never [employer] How many standard dr inks containing alcohol do you have on a typical day? Patient does not drink [facility] (I/We) worried wheth er (my/our) food would run out before (I/we) got money to buy more. Never true [facility] At any time in the p ast 12 months, were you homeless or living in penitentiary [including now]? No [employer] Medical Equipment Procedure Code Equipment Code Equipment Origin al Text Equipment Identifier Dates Use to test suga r TID and as needed. [id number] Start: 12-03-2017 use to inject la ntus and victoza daily [id number] Start: 06-17-2017 Dispense to matc h true metrix [id number] Start: 06-18-2016 Use to test suga r BID [id number] Start: 04-13-2020 Use to inject tw ice daily [id number] Start: 04-13-2020 1 each by Does n ot apply route 3 times daily [id number] Start: 01-20-2019 use to inject la ntus and victoza daily [id number] Start: 01-27-2019 Use to test suga r BID [id number] Start: 11-15-2020 use to inject TW ICE DAILY [id number] Start: 07-14-2020 glucometer, matc kaitlin strips and [...] Start: 08-11-2022 Use to test mandi MCCLELLAN [id number] Start: 02-13-2023 glucometer, matc kaitlin strips and lancets, insulin pen and needles, alcohol swabs, 30 day supply, Print Requisition, Supply Start: 08-11-2022 glucometer, matc kaitlin strips and lancets, insulin pen and needles, alcohol swabs, 30 day supply, Print Requisition, Supply Start: 08-11-2022 Functional Status Date Assessment Result Facility 10-02-2022 Functional Status No [facility] 10-02-2022 Functional Status [facility] 08-09-2022 Functional Status No [facility] Clinical Notes 04-16-2022 to 10-08-2023 Discharge InstructionsAttachmentsJanice Matias RN - 07/05/2023 12:[address], LD - 07/05/2023 11:15 AM EDTFRhea Mack LSW - 07/05/2023 11:06 AM EDTDischarge Instructions Note Date & Type Note Facility 10-08-2023 Hospital Discharge instructions Maxim Gutierrez DO - 10/08/2023 3:06 PM EDT Antibiotic as prescribed. Call your family doctor in the morning for follow-up appointment. Tylenol as needed for fever symptoms. Return to ER for intractable fever or chills or if you develop any shortness of breath or other concerning symptoms. The following attachments cannot be sent through Care Everywhere.Pneumonia (Sudanese)documented in this encounter [facility] 09-30-2023 Note Progress Note-Physic tracy Procedure Airway Assessment: Class I: Visualization of the soft palate, fauces, uvula, anterior and posterior pillars Airway Abnormalities: none ASA Classification: ASA 3: A patient with severe systemic disease Risks/Benefits of IV Sedation: Have been explained IV Sedation Plan: Patient agrees to IV sedation plan_ Assessment/Plan Ordered: hydrALAZINE, 10 mg = 0.5 mL, Injection, IV Push, q2hr PRN Other (see comment), Routine, Start date 09/30/23 14:56:00 EDT, Give for blood pressure of: SBP greater than 140 OR DBP greater than 90 if unable to give Lopressor. Bedrest Cardiac Monitoring Communication Order Communication Order Discharge When Patient Meets Criteria Evaluate Need For Continued Telemetry Head of Bed Intake and Output Keep Limb Straight Neurological Assessment Notify Provider Notify Provider Notify Provider Notify Provider Vital Signs Oxygen - Wean Oxygen Saturation Saline Lock Removal Saline Lock When Drinking Well Site Check Site Check Site Check Up ad Solange Vital Signs Vital Signs Vital Signs [facility] Comment on above: Result Comment: Elec tronically Signed By: Ish MCGILL, Jose Rafael Parks\.br\Date and Time Signed: 09/30/23 15:57 EDT 09-30-2023 Note Patient Education - Text [place], [place] CARDIOVASCULAR DISCHARGE INSTRUCTIONS Diet: ? Resume pre-procedure diet. ? Increase water intake the next 2 days to flush dye out of the body. Activity: If groin access: ? Limit activity today. Do not operate a vehicle, machinery or power tools. ? NO LIFTING OVER 10 POUNDS (a gallon of milk weighs 8 pounds) for 3 days. ? Limit climbing stairs, bending, squatting and stooping for 3 days. ? May resume driving in 24 hours. ? No sexual activity for 1 week. ? Let pain/discomfort guide your activity. If you are having pain, stop. Return to the Emergency Room if you have trouble breathing, walking or nausea. Medications: ? Resume pre-procedure medication, unless otherwise directed. ? Hold the following medications for 48 hours post procedure: Actoplus Met Glucophage Glucophage XR Glucovance Avandamet Fortamet Apo-metformin Glycon Ulises-metformin Glumetza Janumet Metaglip Riomet Glycomet *Minimal pain, soreness and/or discomfort is expected. *You may take OTC non-steroidal anti-inflammatory to manage discomfort, unless contraindicated. If pain is not controlled with the above medications, contact your physician. Site Care: ? Do not remove dressing for 24 hours unless it becomes saturated, then replace. ? Keep site clean and dry; inspect site daily. ? Do not use any lotions, powders, or ointments at the groin or wrist site for 1 week. ? May shower 24 hours after the procedure. Clean site with soap and water. Pat dry and apply band aid. No tub baths, swimming or hot tubs for 3 days Post Procedure: ? Soreness and tenderness to the site can last up to one week. ? Bruising may occur to site. ? A responsible adult should be with you for the first 24 hours after you arrive home. ? Keep follow-up appointment. ? No smoking for 24 hours as it increases the risk of developing blood clots. ? If you are interested in smoking cessation, contact [facility] at [phone], ext. [phone]. ? In the event you are unable to reach your physician, please call [facility] at [phone] and the cotton picking machine operator will assist you. Seek Immediate Medical Care for: ? Bleeding: Apply continuous pressure to the site and Call 911. ? Should the arm or leg become cold, numb, blue or white call your physician immediately. ? Signs of infection are redness, warmth, swelling, increased tenderness, colored drainage, fever or chills ? Chest pain ? [facility] 09-18-2023 Evaluation + Plan note Diagnostic Tests PendingPTH Intact 09/18/23C3 Complement 09/18/23C4 Complement 09/18/23Immunofixation Serum 09/18/23Immunofixation, Urine 09/18/23Free K+L Lt Chains,Qn,S 09/18/23 [facility] 07-05-2023 History of Present illness Narrative IV removed without incident, diffuse pink area above IV site. Instructed patient to monitor area for s/s of infection, and to call if s/s appear. Discharge instructions reviewed with and provided to patient at bedside. Verbalized understanding of follow up appointments, NWB status, walker and prescription last picker, wound care, diet, activity, medications and reasons [...] Accumulation: Mild Extremities (+ 2 BLE edema) Semiconductor Development Technician Strength: Not Performed Nutrition Assessment: Increased nutrient [...] Measures: Height: 175.3 cm (5' 9 ) [place] Body Weight (IBW): 160 lbs (73 kg) [...] Used for Energy Requirements: Current Energy (kcal/day): 9127-5717 (25-28/kg) Weight Used for Protein Requirements: [place] Protein (g/day): 102-117g (1.4-1.6g/kg) Method Used for [...] diabetes education STELLA SOARES RD, LD Contact: [phone] Order for front wheeled walker sent to [facility] this a.m. per Patient request for choice of Pharmacy. Spoke with Chinyere at [facility] who states that Walker in stock and they should have insurance approval later today so Patient can last picker at discharge. Knee scooter not covered by insurance as it is considered a convenience item. Spoke with [facility] in [place] where Patient can rent one for $50/month. [...] 1 Dose, 1 Dose, Inhalation, Q4H PRN B-kzqrlznevsaq-J7-B12 3-35-2 mg (METANX) capsule (Patient Supplied), 1 [...] insulin lispro 40 Units SubCUTAneous TID WC Q-xznbyunrswkd-Q7-B12 1 capsule Oral Daily lactobacillus 1 capsule [...] II according to Podiatry. Wound culture with Staph. Walsh was started on IV Zosyn and Doxycycline [...] (HCC) Omid Carias MD, MD Rounding Hospitalist 2020- Patient is alert and oriented to time, [...] following this hospitalization. [place] with his significant other. Patient has a knee scooter, cane, home oxygen and a shower chair to use at home as needed. Patient reports no current use of outside resources or services. Patient ordinarily drives himself and provides for his own transportation needs. 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 History of anxiety and depression and Diabetes [...] friend second. Patient considering implementing Advanced Directives. PLATE FINISHER to monitor and assist with further discharge [...] this time. documented in this encounter [facility] 07-05-2023 Hospital Discharge instructions Janice Matias RN [...] Sara Lester DO in 1 week. Janice Matias RN - 07/05/2023 10:20 AM EDT tool shaper setup operator prescription and walker from [facility]. Non-weight bearing to left foot- use wheeled walker, or knee scooter if you choose to rent one. Call to schedule follow up appointment with your waterproofer, Dr. Alvarenga. Daily dressing change to left foot and leg. Apply betadine followed with dry, sterile dressing. Janice Matias RN - 07/05/2023 10:15 AM EDT Maintain non-weight bearing status to left foot using front wheeled walker, or knee scooter, if you choose to rent one. Stella Soares RD, LD - 07/05/2023 11:29 AM EDT Good nutrition [...] most local grocery stores, pharmacies, and chain [employer]-stores. If you have any questions about your [...] needs. Consider comprehensive outpatient diabetes education. Call tSella (dietitian) with any questions: [phone] The following attachments cannot be sent through Care Everywhere.Charcot Foot (Sudanese)amoxicillin (Sudanese)Diabetes and Wound Care: Video (Sudanese)Care for a Skin Wound: Video (Sudanese)Diabetes Diet Meal Planning: General Info (Sudanese)documented in this encounter [facility] 10-19-2022 Note Microbiology PROCEDURE: Wound Culture [R1] SOURCE: Wound BODY SITE: Foot L COLLECTED DATE/TIME: 10/17/2022 12:20 EDT RECEIVED DATE/TIME: 10/17/2022 15:25 EDT START DATE/TIME: 10/17/2022 15:25 EDT FREE TEXT SOURCE: deep tissue culture left foot ulcer Zenon Santiago DPM, DPM, Zenon Altamirano FINAL REPORTS Final Report [...] Locations R1: This test was performed at: [facility], [address] [place] [address], [id number] , , [facility] Comment on above: Performed By: #### [id number] ####[facility] [id number] [place] [address] 10-09-2022 Note Microbiology PROCEDURE: Blood Culture Charcoal [R1] SOURCE: Blood BODY SITE: Arm L COLLECTED DATE/TIME: 10/02/2022 09:49 EDT RECEIVED DATE/TIME: 10/02/2022 10:05 EDT START DATE/TIME: 10/02/2022 10:05 EDT FREE TEXT SOURCE: left forearm Sakina CHRISTINE, Bill Freeman DO FINAL REPORTS Final Report [] Verified Date/Time: 10/09/2022 17:01 EDT No growth at 7 days. Performing Locations R1: This [facility] performed at: [facility], [address] [place] [address], [id number] [place] [address], [facility] Comment on above: Performed By: #### [id number] ####[id number] [place] [address] 10-09-2022 Note Microbiology PROCEDURE: Blood Culture Charcoal SOURCE: Blood BODY SITE: Arm R COLLECTED DATE/TIME: 10/02/2022 09:39 EDT RECEIVED DATE/TIME: 10/02/2022 10:03 EDT START DATE/TIME: 10/02/2022 10:03 EDT FREE TEXT SOURCE: IV start/right forearm Sakina CHRISTINE, Bill Freeman DO FINAL REPORTS Final Report [] Verified Date/Time: 10/09/2022 16:59 EDT No growth at 7 days. Performing Locations R1: This test was performed at: [facility], [address] [place] [address], [address] [place] [address], [facility] Comment on above: Performed By: #### 1 [id number] ####[id number] [place] [address] 10-03-2022 Hospital Discharge instructions Patient Education 10/03/2022 14:38:10 Diabetes Mellitus and Foot Care Diabetes Mellitus and Foot Care Foot care is an important part of your health, especially when you have diabetes. Diabetes may cause you to have problems because of poor blood flow (circulation) to your feet and legs, which can cause your skin to: Become thinner and sizing machine and drier operator. Break more easily. Heal more slowly. Peel [...] provider immediately. Where to find more information [place] [employer]: www.diabetes.org Association of Diabetes Care [...] provider. Document Revised: 09/15/2020 Document Reviewed: 09/15/2020 [employer] Patient Education 2022 [employer]. 10/03/2022 14:37:56 Diabetes Mellitus and Foot Care Diabetes Mellitus and Foot Care Foot care is an important part of your health, especially when you have diabetes. Diabetes may cause you to have problems because of poor blood flow (circulation) to your feet and legs, which can cause your skin to: Become thinner and sizing machine and drier operator. Break more easily. Heal more slowly. Peel [...] provider immediately. Where to find more information [place] [employer] Association: www.diabetes.org Association of Diabetes Care [...] provider. Document Revised: 09/15/2020 Document Reviewed: 09/15/2020 [employer] Patient Education 2022 [employer]. Follow Up Care 10/02/2022 09:25:48 With:Zenon Santiago Address: [facility]: c/o [address] [facility] [place] [address]- When:10/10/2022 09:45:00 Comments:Wound clinic With:SARA LESTER Address: [address] [place] [address]- Business (1) When: Unknown [facility] 10-03-2022 Evaluation + Plan note Extrac [...] Tab, 12.5 mg= 0.5 tab(s), Oral, Daily Tyler 325 mg-5 mg oral tablet, 1 tab(s), [...] 10/10/2022 T [facility]: c/o [address] [place] [address]- Additional Instructions: SARA LESTER In 0 days [address] [place] [address]- [facility] (1) Additional Instructions: Extracted from: Title:SOAP Note: [...] Extracted from: Title:Admission H & P Author:Shyla MCGILL, [facility] Date:10/02/22 type 2 diabetes, hypertensio n, vitamin [...] CLINIC Appointment Type: Follow Up Visit (FT) [facility]07-26-2023 NoteAdmission and Discharge Information Admitting Physician - Shyla MCGILL, Anthony Admitting Diagnoses: Discharge Diagnoses 1. Chronic GERD, [...] 56.3 % Lymph Auto - 33.0 % [place] Auto - 6.4 % Eos Auto - 3.3 % Basophil Auto - 1.0 % Neutro Absolute - 3.2 E9/L Lymph Absolute - 1.9 E9/L [place] Absolute - 0.4 E9/L Eos Absolute - 0.2 E9/L Basophil Absolute - 0.1 E9/L Capillary Glucose POC (10/03/2022) Glucose Cap - 222 mg/dL POC Device SN - [id number] POC User ID - [id number] POC Username - AUSTIN CURRIE CMP (10/02/2022) [...] Tab, 12.5 mg= 0.5 tab(s), Oral, Daily Tyler 325 mg-5 mg oral tablet, 1 tab(s), Oral, q6hr, PRN (more content not included)...[facility] Hospital[facility] on [facility]:Result Comment: Electronically Signed By: Shyla MCGILL, Anthony\.br\Date and Time Signed: 10/03/22 10:41 [id number] NoteChief Complaint Snet from wound clinnic for [...] 09:49:00) Lymph Auto: 33 % (10/02/22 09:49:00) [place] Auto: 6.4 % (10/02/22 09:49:00) Eos Auto: 3.3 % (10/02/22 09:49:00) Basophil Auto: 1 % (10/02/22 09:49:00) Neutro Absolute: 3.2 E9/L (10/02/22 09:49:00) Lymph Absolute: 1.9 E9/L (10/02/22 09:49:00) [place] Absolute: 0.4 E9/L (10/02/22 09:49:00) Eos Absolute: [...] mg/dL High (10/02/22 11:53:00) POC Device SN: [id number] (10/02/22 11:53:00) POC User ID: [id number] (10/02/22 11:53:00) POC Username: POC Username (10/02/22 [...] atorvastatin 40 mg Tab, (more content not included)...[facility] HospitalComment on above:Result Comment: Electronically Signed By: Shyla MCGILL, mad\.br\Date and Time Signed: 10/02/22 12:08 [id number] Evaluation + Plan noteExtracted from: Title:Discharge Note Author:Martin JOHNSON MD Date: 08/14/22 Discharge To, Anticipated II - [...] Tab-ER, 600 mg= 1 tab(s), Oral, BID Tyler 325 mg-5 mg oral tablet, 1 tab(s), [...] 08/21/2022 10:00 AM EDT [address] [place] [address]- Additional Instructions: [facility]: [place]- [phone] 08/15/2022 11:45 AM EDT Additional Instructions: Appointment [...] Tab-ER, 600 mg= 1 tab(s), Oral, BID Tyler 325 mg-5 mg oral tablet, 1 tab(s), [...] DO 08/21/2022 10:00 AM EDT [address] [place] [address]- Additional Instructions: [facility]: [place]- [phone] 08/15/2022 11:45 AM EDT Additional Instructions: Appointment [...] made to ensure accuracy, however, inadvertently computerized special education teaching assistant mistakes may be present. Dr. Bonifacio Persaud [facility] Hospitalist Extracted from: Title:ED Note Author:Mino Daniels [...] Date:08/15/2022 11:45:00 AM Scheduled Provider:Zenon Santiago DPM Location:FT.WOUND CLINIC Appointment Type:WC Follow Up Visit (FT) [facility]06-03-2023 Hospital Discharge instructions Patient Education 08/11/2022 [...] these instructions at home: General instructions Take mylq-evu-avsxczv and prescription medicines only as told by [...] alert jewelry. Where to find more information [place] Diabetes Association: www.diabetes.org Contact a health care [...] provider. Document Revised: 12/09/2020 Document Reviewed: 12/09/2020 [employer] Patient Education 2022 [employer]. 08/11/2022 10:05:28 Blood Glucose Monitoring, Adult Blood [...] or if there is an frankie for [employer]. Most glucose meters store a record of [...] mayhave. Where to find more information The [place] Diabetes Association: www.diabetes.org The Association of Diabetes [...] provider. Document Revised: 11/23/2020 Document Reviewed: 11/23/2020 [employer] Patient Education 2022 [employer]. 08/11/2022 10:05:26 Community-Acquired Pneumonia, Adult Community-Acquired Pneumonia, [...] Follow these instructions at home: Medicines Take yhkk-kcq-anisqru and prescription medicines only as told by [...] and water are not available, use hand manager respiratory. Contact a health care provider if you [...] provider. Document Revised: 12/08/2019 Document Reviewed: 12/08/2019 [employer] Patient Education 2022 [employer]. 08/10/2022 12:00:39 Diet - Basic Carbohydrate Counting [...] hot dog bun (1 ounce) 3/4 cup fwjno-fu-dny cereal 1/2 cup cooked cereal 1 cup [...] Care 08/09/2022 14:57:30 With:SARA LESTER DO Address: [address] [place] [address]- When:08/21/2022 10:00:00 With:[facility] [phone] Address:Unknown When:08/15/2022 11:45:00 Comments:Appointment has already been scheduledKeep scheduled appointment [facility]04-22-2023 Hospital course Narrative* Kiet Farah MD - 06/30/2022 7:55 AM EDT Images from the original note were not included. Hospitalist Discharge Summary Patient: Jillian Little Date of : 1960 Acct: [id number] Primary Care Physician: Sara Lester DO Admit [...] MOUTH EVERY DAY IN THE MORNING. Drug [facility] Unifine Pentips 31G X 5 MM Misc Generic drug: Insulin Pen Needle use to inject TWICE DAILY DULoxetine 60 MG extended release capsule Commonly known as: CYMBALTA TAKE 1 CAPSULE BY MOUTH EVERY DAY. ipratropium-albuterol 0.5-2.5 (3) MG/3ML Soln nebulizer solution Commonly known as: DUONEB Inhale 3 mLs into the lungs every 4 hours as needed for Shortness of Breath F-joyobagumuql-A8-B12 3-90.314-2-35 MG Caps capsule Take 1 capsule [...] Your Medications These medications were sent to [facility] # - [place], [place] - [address] [place] [address] - [phone] - F [phone] [place] [phone] doxycycline hyclate 100 MG capsule levoFLOXacin 500 MG tablet multivitamin Tabs tablet Diet: ADULT DIET; Regular; 4 carb choices (60 gm/meal) ADULT ORAL NUTRITION SUPPLEMENT; Breakfast, Dinner; Wound Healing Oral Supplement ADULT ORAL NUTRITION SUPPLEMENT; Lunch; Diabetic Oral Supplement Activity: Up ad solange (Patient can move independently) Follow-up: in 1-2 weeks with Sara Lester DO, follow-up with your waterproofer Dr. Santiago coming Saturday Consultants: Podiatry Dr. [...] drainage. Patient has been following up with [facility] wound clinic and waterproofer Dr. Santiago for chronic diabetic ulcer. Despite treatments he developed worsening of the infection. He reports minimal pain in his foot due to underlying severe neuropathy. He had noassociated fevers or chills. He came to the emergency room on 06/21 for worsening infection of the left great toe. Was treated with IV Unasyn and discharged home with Augmentin and Cleocin. Apparentlyhis waterproofer was on vacation and he was unable [...] IV antibiotics and follow-up outpatient with his waterproofer Dr. Santiago. Patient's wound culture came back positive for mixed bacterial morphotypes andSerratia marcescens moderate growth. Patient will be discharged with Levaquin and doxycycline course. He is to follow-up with his waterproofer Dr. Santiago and has an appointment on Sunday 07/02. He is encouraged to be more compliant with his insulin therapy. Disposition: home Condition: Stable Time Spent: 34 minutes Discharging Hospitalist [facility] [employer] Work Phone: 1(214) 280-807404-21-2023 History of Present illness Narrative* Stella Soares RD, LD - 06/29/2022 9:39 AM EDT Nutrition Note Pt declined offer of CC diabetic diet education. Contact: [phone] * Briana Rust RCP - 06/29/2022 9:34 AM EDT Cage/Vault Supervisor explained to patient the Dr. Santiago office [...] RN - 06/29/2022 9:27 AM EDT Called [facility]Wound [facility] and spoke with Karlos to clarify pt f/u appt with Dr. Santiago. Only appt pt hasis on July 03 @ 3:45pm. * DIANA Harris - 06/29/2022 9:25 AM EDT Acknowledge pt potential discharge to home tomorrow. Pt with all needed DME at home and girlfriend to assist with dressing changes until follow up with [facility] Wound Care Clinic. Yulisa ORTIZ 06/29/2022 * Stella Soares RD, ANNE MARIE - 06/29/2022 9:00 AM EDT Comprehensive Nutrition [...] Fluid Accumulation: Mild Extremities (+ 1 BLE) Semiconductor Development Technician Strength: Not Performed Nutrition Assessment: Continued increased [...] aid DM. Pt to see wound doctorat [facility] Saturday, possible R great toe amputation per [...] Anthropometric Measures: Height: 5' 9 (175.3 cm) [place] Body Weight (IBW): 160 lbs (73 kg) [...] Used for Energy Requirements: Current Energy (kcal/day): 7090-0499 (20-23/kg) Weight Used for Protein Requirements: [place] Protein (g/day): 95-117g (1.3-1.6g/kg) Method Used for Fluid Requirements: 1 ml/kcal Fluid (ml/day): 2,200 ml Recent Labs 06/27/22 1151 06/27/22 1659 06/27/22202306/28/22 0746 06/28/22 1155 06/28/22 1718 06/28/22205806/29/22 0745 POCGLU 217* 184* 211* 306* 209* [...] diet STELLA SOARES RD, ANNE MARIE Contact: [phone] * Kiet Farah MD - 06/29/2022 8:32 [...] Oral QAM DULoxetine 60 mg Oral Daily S-dpevtrytnmpb-B9-B12 1 capsule Oral Daily lactobacillus 1 capsule [...] discharge with further recommendation to follow-up with [facility] wound clinic and his waterproofer Dr. Santiago 2. Diabetes mellitus type 2, [...] Farah MD, MD Rounding Hospitalist * Festus Peace, DPM - 06/29/2022 8:16 AM EDT Podiatry [...] 3 mL, 1 vial, Inhalation, Q4H PRN V-umhxbgahrphv-W7-B12 3-35-2 mg (METANX) capsule (Patient Supplied), 1 [...] and plan d/c in AM- [facility] betadine [facility]sg and oral AB. Gram negcoverage needed(cipro) and probable Staph A or Epi with resistance likely(linezolid vs clinda if C&S not final) suggested, depending on C&S result. Spoke tp Dr Zenon Santiago at [facility] and agreed to accept his return and resume care with probable gr toe amp.- Appt Mon AM * Dariusz [place] [facility] - 06/28/2022 10:50 AM EDT [...] consult. Pharmacy will continue to follow. Dariusz [place] PharmD 06/28/2022 10:49 AM * Iwonadestiney Mahajanrosario - 06/28/2022 9:42 AM EDT [facility] Date: 06/28/2022 Physical Therapy Daily Note [...] arrival to room. Agrees to work with [employer]LL [employer]. Walking boot is applied prior to session [...] weight bearing LLE to safely enter/exit home-MET Automatic Vulcanizing Operator Goals Iwonadestiney Mahajanrosario Therapy License Number: ROLL [employer]ER Date: 06/28/2022 * Kiet Farah MD - [...] Oral QAM DULoxetine 60 mg Oral Daily N-pumsydgtncdt-I8-B12 1 capsule Oral Daily lactobacillus 1 capsule [...] # 1.50 1.0 - 4.8 k/uL Absolute [place] # 0.70 0.0 - 1.0 k/uL Absolute [...] # 2.00 1.0 - 4.8 k/uL Absolute [place] # 0.50 0.0 - 1.0 k/uL Absolute [...] discharge with further recommendation to follow-up with [facility] wound clinic and his waterproofer Dr. Santiago 2. Diabetes mellitus type 2, [...] DIANA Harris - 06/27/2022 10:22 AM EDT biofuels plant manager and SW met with pt to complete assessment during quality rounds this morning. Pt isalert and oriented and pleasant with assessment. Pt is a 62 year old male admitted for osteomyelitis of great toe of left foot. Pt lives with his girlfriend in their home in [place]. Pt has a nebulizer, walker, cane, glucometer, [...] at discharge with follow up to his waterproofer at [facility] wound care clinic. Ptidentifies no discharge needs or concerns. Pt states that his girlfriend can assist with any dressing changes that are needed. SW will follow and remain available as needed. Yulisa SOLITARIOW 06/27/2022 * Stella Soares RD, LD - [...] Fluid Accumulation: Mild Extremities (+ 1 BLE) Semiconductor Development Technician Strength: Not Performed Nutrition Assessment: Increased nutrient [...] Anthropometric Measures: Height: 5' 9 (175.3 cm) [place] Body Weight (IBW): 160 lbs (73 kg) [...] Used for Energy Requirements: Current Energy (kcal/day): 8013-0729 (20-23/kg) Weight Used for Protein Requirements: [place] Protein (g/day): 95-117g (1.3-1.6g/kg) Method Used for [...] 04/02/2022 12:00 AM Recent Labs 06/26/22 1629 06/26/22 2032 06/27/22 0734 POCGLU 381* 333* 289* Lab Results [...] Supplement STELLA SOARES RD, ANNE MARIE Contact: [phone] * August French [facility] - 06/26/2022 7:07 PM EDT [facility] Pharmacokinetic Monitoring Service - Vancomycin Jillian [...] Thank you for the consult, August French [facility] 06/26/2022 7:04 PM * Adrienne Cooper RN [...] medications when able. documented in this encounterBON Wrapp Phone: 1(139) 227-566402-06-2023 Note [facility] Vascular Lower Arterial Plethysmography Procedure Patient Name KATHARINA WALSH Date of Study 04/16/2022 E Date of 1960 Gender Male Age 62 year(s) Race Room Number Corporate ID # [id number] Patient MR # [id number] Adjuster RT [place] Interpreting Physician Tank Neely Referring Referring Physician Sara Lester Nurse Practitioner Procedure Type of Study: Extremities Arteries: Lower Arterial Plethysmography, PVR Lower with PPG. Indications for Study:Diminished pulses. Patient Status:Routine. 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 Near normal waveforms. Signature Findings: Right Impression: Left Impression: Right STEW [...] Provider: Location:.PHYSICAL [place] Appointment Type:PT FCE () [facility] Future Appointments Appointment Date:06/26/2021 09:45:00 AM Scheduled Provider: Location:FT.WOUND CLINIC Appointment Type:WC Assessment (FT) Appointment Date:07/03/2021 10:30:00 AM Scheduled Provider:Zenon Santiago DPM Location:FT.WOUND CLINIC Appointment Type:WC [facility] Future Appointments Appointment Date:07/03/2021 10:30:00 AM Scheduled Provider:Zenon Santiago DPM Location:FT.WOUND CLINIC Appointment Type:WC [facility] (FT[facility] Future Appointments Appointment Date:07/10/2021 01:00:00 PM Scheduled Provider: Location:FT.WOUND CLINIC Appointment Type:WC Assessment (FT) Appointment Date:07/17/2021 09:45:00 AM Scheduled Provider:Zenon Santiago DPM Location:FT.WOUND CLINIC Appointment Type:WC [facility] Future Appointments Appointment Date:07/17/2021 09:45:00 AM Scheduled Provider:Zenon Santiago DPM Location:FT.WOUND CLINIC Appointment Type:WC [facility] (FT[facility] Future Appointments Appointment Date:07/31/2021 09:45:00 AM Scheduled Provider:Zenon Santiago DPM Location:FT.WOUND CLINIC Appointment Type:WC [facility] (FT[facility] Future Appointments Appointment Date:08/14/2021 09:45:00 AM Scheduled Provider:Zenon Santiago DPM Location:FT.WOUND CLINIC Appointment Type:WC [facility]FT[facility] Future Appointments Appointment Date:08/30/2021 10:00:00 AM Scheduled Provider:Zenon Santiago DPM Location:FT.WOUND CLINIC Appointment Type:WC [facility] (FT[facility] Future Appointments Appointment Date:09/06/2021 11:00:00 AM Scheduled Provider:Zenon Santiago DPM [facility] Appointment Type:WC [facility] Future App[facility]ments Appointment Date:09/12/2021 03:30:00 PM Scheduled Provider:Maxim Santiago DPM [facility] Appointment Type:WC [facility] ([facility] Future Appointments Appointment Date:09/18/2021 10:00:00 AM Scheduled Provider:Zenon Santiago DPM [facility] Appointment Type:WC Follow Up Visit (FT) Appointment Date:09/20/2021 10:15:00 AM Scheduled Provider:Zenon Santiago DPM [facility] Appointment Type:WC [facility] Future Appointments Appointment Date:09/20/2021 10:15:00 AM Scheduled Provider:Zenon Santiago DPM [facility] Appointment Type:WC [facility] ([facility] Future Appointments Appointment Date:09/27/2021 11:15:00 AM Scheduled Provider:Zenon Santiago DPM [facility] Appointment Type:WC [facility] ([facility] Future Appointments Appointment Date:10/04/2021 11:45:00 AM Scheduled Provider:Zenon Santiago DPM [facility] Appointment Type:WC [facility] (FT[facility] Future Appointments Appointment Date:10/11/2021 02:30:00 PM Scheduled Provider: [facility] Appointment Type:WC Assessment (FT) Appointment Date:10/18/2021 09:30:00 AM Scheduled Provider:Zenon Santiago DPM [facility] Appointment Type:WC [facility] Future App[facility]ments Appointment Date:10/18/2021 09:30:00 AM Scheduled Provider:Zenon Santiago DPM [facility] Appointment Type:WC [facility] ([facility] Future Appointments Appointment Date:10/25/2021 09:30:00 AM Scheduled Provider:Zenon Santiago DPM [facility] Appointment Type:WC [facility] (FT[facility] Future Appointments Appointment Date:11/08/2021 09:15:00 AM Scheduled Provider:Zenon Santiago DPM [facility] Appointment Type:WC [facility] (FT[facility] Future Appointments Appointment Date:04/04/2022 09:45:00 AM Scheduled Provider:Zenon Santiago DPM [facility] Appointment Type:WC [facility] (FT[facility] Future Appointments Appointment Date:04/18/2022 10:45:00 AM Scheduled Provider:Zenon Santiago DPM [facility] Appointment Type:WC [facility] ([facility] Future Appointments Appointment Date:05/02/2022 09:45:00 AM Scheduled Provider:Zenon Santiago DPM [facility] Appointment Type:WC [facility] (FT[facility] Future Appointments Appointment Date:05/16/2022 09:15:00 AM Scheduled Provider:Zenon Santiago DPM [facility] Appointment Type:WC [facility] (FT[facility] Future Appointments Appointment Date:06/06/2022 10:15:00 AM Scheduled Provider:Zneon Santiago DPM [facility] Appointment Type:WC [facility] (FT[facility] Future Appointments Appointment Date:06/12/2022 11:30:00 AM Scheduled Provider: [facility] Appointment Type:WC Assessment (FT) Appointment Date:06/19/2022 11:30:00 AM Scheduled Provider: [facility] Appointment Type:WC Assessment (FT) Appointment Date:06/27/2022 11:00:00 AM Scheduled Provider:Zenon Santiago DPM [facility] Appointment Type:WC [facility] (FT[facility] Future Appointments Appointment Date:06/27/2022 11:00:00 AM Scheduled Provider:Zenon Santiago DPM [facility] Appointment Type:WC [facility] (FT[facility] Future Appointments Appointment Date:08/20/2022 09:00:00 AM Scheduled Provider: [facility] Appointment Type:WC Assessment (FT) Appointment Date:08/22/2022 01:30:00 PM Scheduled Provider: [facility] Appointment Type:WC Assessment (FT) Appointment Date:08/24/2022 09:30:00 AM Scheduled Provider: [facility] Appointment Type:WC Assessment (FT) [facility] Future Appointments Appointment Date:08/22/2022 01:30:00 PM Scheduled Provider: [facility] Appointment Type:WC Assessment (FT) Appointment Date:08/24/2022 09:30:00 AM Scheduled Provider: [facility] Appointment Type:WC Assessment (FT) [facility] Future Appointments Appointment Date:08/27/2022 08:00:00 AM Scheduled Provider: [facility] Appointment Type:WC Assessment (FT) Appointment Date:08/29/2022 10:30:00 AM Scheduled Provider:Zenon Santiago DPM [facility] Appointment Type:WC Follow Up Visit (FT) Appointment Date:08/31/2022 08:30:00 AM Scheduled Provider: [facility] Appointment Type:WC Assessment (FT) [facility] Future Appointments Appointment Date:08/29/2022 10:30:00 AM Scheduled Provider:Zenon Santiago DPM [facility] Appointment Type:WC Follow Up Visit (FT) Appointment Date:08/31/2022 08:30:00 AM Scheduled Provider: [facility] Appointment Type:WC Assessment (FT) [facility] Future Appointments Appointment Date:08/31/2022 08:30:00 AM Scheduled Provider: [facility] Appointment Type:WC Assessment (FT) Appointment Date:09/05/2022 11:45:00 AM Scheduled Provider:Zenon Santiago DPM [facility] Appointment Type:WC [facility] (FT[facility] Future Appointments Appointment Date:09/03/2022 01:30:00 PM Scheduled Provider: [facility] Appointment Type:WC Assessment (FT) Appointment Date:09/05/2022 11:45:00 AM Scheduled Provider:Zenon Santiago DPM [facility] Appointment Type:WC Follow Up Visit (FT) Appointment Date:09/07/2022 08:30:00 AM Scheduled Provider: [facility] Appointment Type:WC Assessment (FT) [facility] Future Appointments Appointment Date:09/05/2022 11:45:00 AM Scheduled Provider:Zenon Santiago DPM [facility] Appointment Type:WC Follow Up Visit (FT) Appointment Date:09/07/2022 08:30:00 AM Scheduled Provider: [facility] Appointment Type:WC Assessment (FT) [facility] Future Appointments Appointment Date:09/10/2022 09:00:00 AM Scheduled Provider: [facility] Appointment Type:WC Assessment (FT) Appointment Date:09/12/2022 09:30:00 AM Scheduled Provider: [facility] Appointment Type:WC Assessment (FT) Appointment Date:09/14/2022 09:00:00 AM Scheduled Provider: [facility] Appointment Type:WC Assessment (FT) Appointment Date:09/19/2022 12:00:00 PM Scheduled Provider:Zenon Santiago DPM [facility] Appointment Type:WC [facility] Up Visit (FT[facility] Future Appointments Appointment Date:09/12/2022 09:30:00 AM Scheduled Provider: [facility] Appointment Type:WC Assessment (FT) Appointment Date:09/14/2022 09:00:00 AM Scheduled Provider: [facility] Appointment Type:WC Assessment (FT) Appointment Date:09/19/2022 12:00:00 PM Scheduled Provider:Zenon Santiago DPM [facility] App[facility]ment Type:WC [facility] Future App[facility]ments Appointment Date:09/14/2022 09:00:00 AM Scheduled Provider: [facility] Appointment Type:WC Assessment (FT) Appointment Date:09/19/2022 12:00:00 PM Scheduled Provider:Zenon Santiago DPM [facility] Appointment Type:WC [facility] Future Appointments Appointment Date:09/19/2022 12:00:00 PM Scheduled Provider:Zenon Santiago DPM [facility] Appointment Type:WC Follow Up Visit (FT) [facility] + Plan note Future Appointments Appointment Date:09/21/2022 09:00:00 AM Scheduled Provider: [facility] Appointment Type:WC Assessment (FT) Appointment Date:09/24/2022 11:00:00 AM Scheduled Provider: [facility] Appointment Type:WC Assessment (FT) Appointment Date:09/26/2022 09:15:00 AM Scheduled Provider:Zenon Santiago DPM [facility] Appointment Type:WC Follow Up Visit (FT) [facility] + Plan note Future Appointments Appointment Date:09/24/2022 11:00:00 AM Scheduled Provider: [facility] Appointment Type:WC Assessment (FT) Appointment Date:09/26/2022 09:15:00 AM Scheduled Provider:Zenon Santiago DPM [facility] Appointment Type:WC Follow Up Visit (FT) Appointment Date:09/28/2022 09:00:00 AM Scheduled Provider: [facility] Appointment Type:WC [facility]FT[facility] Future Appointments Appointment Date:09/26/2022 09:15:00 AM Scheduled Provider:Zenon Santiago DPM [facility] Appointment Type:WC Follow Up Visit (FT) Appointment Date:09/28/2022 09:00:00 AM Scheduled Provider: [facility] Appointment Type:WC Assessment (FT[facility] App[facility]ments Appointment Date:10/02/2022 09:00:00 AM Scheduled Provider: [facility] Appointment Type:WC Assessment (FT) Appointment Date:10/10/2022 09:45:00 AM Scheduled Provider:Zenno Santiago DPM [facility] Appointment Type:WC [facility] (FT[facility] Future Appointments Appointment Date:10/15/2022 11:15:00 AM Scheduled Provider: [facility] Appointment Type:WC Assessment (FT) [facility] Future Appointments Appointment Date:10/17/2022 11:45:00 AM Scheduled Provider:Zenon Santiago DPM [facility] Appointment Type:WC Follow Up Visit (FT[facility] Future Appointments Appointment Date:10/19/2022 09:00:00 AM Scheduled Provider: [facility] Appointment Type:WC Assessment (FT) Appointment Date:10/25/2022 09:30:00 AM Scheduled Provider:Bill Ochoa MD [facility] Appointment Type:WC HBO Eval (FT) Appointment Date:10/31/2022 08:45:00 AM Scheduled Provider:Zenon Santiago DPM [facility] Appointment Type:WC [facility] ([facility] Future Appointments Appointment Date:10/31/2022 08:45:00 AM Scheduled Provider:Zenon Santiago DPM [facility] Appointment Type:WC [facility] (FT[facility] Future Appointments Appointment Date:11/01/2022 08:00:00 AM Scheduled Provider: [facility] Appointment Type:WC HBO (FT) Appointment Date:11/02/2022 08:00:00 AM Scheduled Provider: [facility] Appointment Type:WC HBO (FT) Appointment Date:11/05/2022 08:00:00 AM Scheduled Provider: [facility] Appointment Type:WC HBO (FT) Appointment Date:11/06/2022 08:00:00 AM Scheduled Provider: [facility] Appointment Type:WC HBO (FT) Appointment Date:11/07/2022 10:45:00 AM Scheduled Provider:Zenon Santiago DPM [facility] Appointment Type:WC Follow Up Visit (FT) Appointment Date:11/07/2022 11:15:00 AM Scheduled Provider: [facility] Appointment Type:WC Assessment (FT) Appointment Date:11/07/2022 11:30:00 AM Scheduled Provider: [facility] Appointment Type:WC HBO (FT) Appointment Date:11/08/2022 11:30:00 AM Scheduled Provider: [facility] Appointment Type:WC HBO (FT) Appointment Date:11/09/2022 08:00:00 AM Scheduled Provider: [facility] Appointment Type:WC HBO (FT) Appointment Date:11/14/2022 11:30:00 AM Scheduled Provider:Zenon Santiago DPM [facility] Appointment Type:WC Follow Up Visit (FT) Appointment Date:11/29/2022 11:45:00 AM Scheduled Provider:Bill Ochoa MD [facility] Appointment Type: HBO Re[facility]Eval (FT[facility] Future Appointments Appointment Date:11/07/2022 11:30:00 AM Scheduled Provider: [facility] Appointment Type:WC HBO (FT) Appointment Date:11/08/2022 11:30:00 AM Scheduled Provider: [facility] Appointment Type:WC HBO (FT) Appointment Date:11/09/2022 08:00:00 AM Scheduled Provider: [facility] Appointment Type:WC HBO (FT) Appointment Date:11/14/2022 11:30:00 AM Scheduled Provider:Zenon Santiago DPM [facility] Appointment Type:WC Follow Up Visit (FT) Appointment Date:11/29/2022 11:45:00 AM Scheduled Provider:Bill Ochoa MD [facility] Appointment Type:WC HBO Re[facility]Eval (FT[facility] Future Appointments Appointment Date:11/26/2022 01:30:00 PM Scheduled Provider: [facility] Appointment Type:WC HBO (FT) Appointment Date:11/27/2022 08:30:00 AM Scheduled Provider: [facility] Appointment Type:WC HBO (FT) Appointment Date:11/28/2022 11:15:00 AM Scheduled Provider:Zenon Santiago DPM [facility] Appointment Type:WC Follow Up Visit (FT) Appointment Date:11/28/2022 11:30:00 AM Scheduled Provider: [facility] Appointment Type:WC HBO (FT) Appointment Date:11/29/2022 11:45:00 AM Scheduled Provider:Bill Ochoa MD [facility] Appointment Type:WC HBO Re-Eval (FT) Appointment Date:11/29/2022 01:30:00 PM Scheduled Provider: [facility] Appointment Type:WC HBO (FT) Appointment Date:11/30/2022 08:30:00 AM Scheduled Provider: [facility] Appointment Type:WC HBO (FT[facility] Future Appointments Appointment Date:12/05/2022 07:45:00 AM Scheduled Provider:Zenon Santiago DPM [facility] Appointment Type:WC Follow Up [facility] (FT[facility] Future Appointments Appointment Date:12/19/2022 11:00:00 AM Scheduled Provider:Zenon Santiago DPM [facility] Appointment Type:WC [facility] (FT[facility] Diagnosis Paronychia of great toe of left foot Onychia and paronychia of toe Diabetic polyneuropathy associated with type 2 diabetes mellitus (HCC) documented in this encounter [employer] Phone: evaluation note* Diagnosis Cellulitis of right foot- Primary Cellulitis and abscess of foot, except toes Type 2 diabetes mellitus with hyperglycemia, with long-term current use of insulin (HCC) documented in this encounter [employer] Phone: evaluation note* Diagnosis Charcot's joint of right foot Cellulitis of right foot Cellulitis and abscess of foot, except toes Diabetic neuropathic arthropathy (HCC) Type II or unspecified type diabetes mellitus with neurological manifestations, not stated as uncontrolled documented in this encounter [employer] Phone: evaluation note* Diagnosis Subacute bronchitis- Primary Acute bronchitis Lab test negative for COVID-19 virus documented in this encounter [employer] Phone: evaluation note* Diagnosis Type 2 diabetes mellitus with diabetic polyneuropathy, with long-term current use of insulin ([facility]) documented in this encounter [employer] Phone: evaluation note* Diagnosis Type 2 diabetes mellitus with diabetic polyneuropathy, with long-term current use of insulin ([facility]) documented in this encounter [employer] Phone: evaluation note* Diagnosis Full incontinence of feces Chronic midline low back pain without sciatica documented in this encounter [employer] Phone: evaluation note* Diagnosis Decreased pulse Other symptoms involving cardiovascular system documented in this encounter [employer] Phone: evaluation note* Diagnosis Abscess or cellulitis of toe, left- Primary Wound infection Posttraumatic wound infection not elsewhere classified documented in this encounter [employer] Phone: evaluation note* Diagnosis Osteomyelitis of great toe of left foot (HCC)- Primary Osteomyelitis of great toe ([facility]) Cellulitis of foot Cellulitis and abscess of foot, except toes Hyperglycemia Other abnormal glucose documented in this encounter [employer] Phone: evalcuplmq note* Diagnosis HALEY (acute kidney injury) (HCC) Acute kidney failure, unspecified documented in this encounter [employer] note* Diagnosis Foot ulcer, left, limited to breakdown of skin ([facility])- Primary Diabetic ulcer of left midfoot associated with type 2 diabetes mellitus, unspecified ulcer stage (HCC) Foot ulcer, left, limited to breakdown of skin ([facility]) documented in this encounter [employer] note* Diagnosis Community acquired bilateral lower lobe pneumonia- Primary documented in this encounter [facility] course Narrative No data available for this section [facility]* Attachments The following attachments cannot be sent through Care Everywhere. * Cellulitis (Sudanese) * Hyperglycemia: General Info (Sudanese) documented in this [facility]* Attachments The following attachments cannot be sent through Care Everywhere. * Bronchitis (Sudanese) * COPD: Prevent Lung Infections: General Info (Sudanese) documented in this [facility]: [facility] Discharge instructions No data available for this section [facility]* Attachments The following attachments cannot be sent through Care Everywhere. * Abscess: Skin (Sudanese) [facility] Phone: [facility] Discharge instructions* Attachments The following attachments cannot be sent through Care Everywhere. * Steroid-Induced Diabetes Mellitus: General Info (Sudanese) * Cellulitis (Sudanese) * Diabetes and Wound Care: Video (Sudanese) documented in this [facility]My[facility] Phone: progress note No data available for this section [facility] Diagnosis Diabetic polyneuropathy associated with type 2 diabetes mellitus (HCC) Diagnosis Diabetic polyneuropathy associated with type 2 diabetes mellitus (HCC) Diagnosis Osteomyelitis of right foot, unspecified type (HCC)- Primary Cellulitis of right foot Cellulitis and abscess of foot, except toes Cellulitis of foot Cellulitis and abscess of foot, except toes Advance Directives No Advanced Directives Records FoundDocuments on File Type Date Recorded Patient Rail Specialist Expl anation Advance Directives and Living Will Power of Medical Radiation Dosimetrist Latest Code Status on File Code Status Date Activated Date Inactivated Comments Full Code 05/26/2016 8:43 AM 05/30/2016 3:51 PM Documents on File Type Date Recorded Patient Rail Specialist Expl anation ACP-Advance Directive ACP-Power of Medical Radiation Dosimetrist Latest Code Status on File Code Status Date Activated Date Inactivated Comments Full Code 03/20/2020 3:58 AM 03/26/2020 4:22 PM Full Code 05/26/2016 8:43 AM 05/30/2016 3:51 PM Healthcare Agents on File Name Relationship Healthcare Agent [facility] Communication Merline Swan Other Primary Decision Maker Healthcare Agents on File Name Relationship Healthcare Agent Relationshi p Communication Merline Swan Other Primary Decision Maker Healthcare Agents on File Name Relationship Healthcare Agent Relationshi p Communication Merline Swan Other Primary Decision Maker Documents on File Type Date Recorded Patient Rail Specialist Expl anation ACP-Advance Directive ACP-Power of Medical Radiation Dosimetrist Latest Code Status on File Code Status [...] Maker Andre Little Child Primary Decision Maker Latest Code Status on File Code Status Date Activated Date Inactivated Comments Full Code 07/03/2023 5:50 PM 07/05/2023 2:57 PM Healthcare Agents on File Name Relationship Healthcare Agent Itzel Young Secondary Decision Maker Andre Naranjo Primary Decision Maker Discharge Instructions * Instructions* [...] foot.- knee scooter at all times. Office [phone] Dr. Peace documented in this encounter* Instructions* [...] be sent through Care Everywhere. * Cellulitis (Sudanese) documented in this encounter History of Present Illness * Eleonora Marin RN - 05/16/2020 9:28 AM EST Discharge Criteria [...] and will pick it up then, RN medical supervisor notified. * Pamela Garcia RN - 03/26/2020 12:50 PM EST Wound care education provided to girlfriendMerline. Wound care completed, irrigated with normal saline, paint affected areas with iodine, covered with gauze and kerlix, wrapped with earl wrap. Discharge instructions given to patient and patient's girlfriendMerline with special attention to medications and follow [...] states maybe later on this evening. * uYlisa Ruiz LSW - 03/25/2020 1:11 PM EST [...] with girlfriend. Yulisa ORTIZ 03/25/2020 * Festus Peace, MARIA R - 03/25/2020 11:48 AM EST Podiatry Progress [...] vancomycin (VANCOCIN) 1 g injection, , , [id number] 3-35-2 mg (METANX) capsule, 1 capsule, Oral, [...] focus on B strep,S Aureus- sensitivity pending May d/c to home tomorrow after Vanco dose, NWB Oral AB and qd -Qod betadine drsg depending on drainage. No Packing Will send Rx for Metanx and waiting on sensitivty for choice of dual agent oral therapy for likely Strep/Staph Pamela Stone RN - 03/25/2020 8:30 AM JENARO Peace at bedside, wound care completed by Dr. Peace, new orders received on wound care, Dr. Peace would like to see patient in next week appointment made for 03/31/2020, potential discharge tomorrow after lunch. * Keit Farah MD - 03/25/2020 7:42 AM EST Hospitalist Progress Note 03/25/2020 7:42 AM Subjective: Admit Date: 03/19/2020 PCP: Sara Lester, Interval History: The patient states that he [...] need for IV antibiotics and [facility] * Kiet Farah MD - 03/24/2020 [...] (Comment) Estimated Daily Nutrient Needs: Energy (kcal): 5048-5637(18-23); Weight Used for Energy Requirements: Current Protein (g): 98-113(1.3-1.5); Weight Used for Protein Requirements: [place] Fluid (ml/day): 2100+; Weight Used for Fluid [...] LABALBU 3.8 03/20/2020 Recent Labs 03/21/20 1655 03/21/208 03/22/20 0719 03/22/20 1126 03/22/20 1702 03/22/20 2037 03/23/20 0750 03/23/20 1142 POCGLU 202* 150* 174* 196* 170* 200* 173* 118* Nutrition Monitoring and Evaluation: Behavioral-Environmental Outcomes: Knowledge or Skill Food/Nutrient Intake Outcomes: Food and Nutrient Intake, Supplement Intake Physical Signs/Symptoms Outcomes: Biochemical Data, Skin, Weight Discharge Planning: Continue current diet, Continue Oral Nutrition Supplement Contact: [id number] * Anton Duran RN - 03/23/2020 10:28 [...] Diet NPO, After Midnight Medications: Scheduled Meds: [May] vancomycin 1,500 mg Intravenous Q12H [May] insulin glargine 90 Units Subcutaneous QAM AC [MAY Hold] lisinopril 10 mg Oral Daily And [MAY Hold] hydroCHLOROthiazide 12.5 mg Oral Daily [May] amitriptyline 25 mg Oral Nightly [MAY Hold] aspirin 81 mg Oral Daily [MAY Hold] atorvastatin 40 mg Oral Daily [MAY Hold] DULoxetine 60 mg Oral Daily [MAY Hold] metFORMIN 1,000 mg Oral BID WC [MAY Hold] pantoprazole 40 mg Oral QAM AC [May] pramipexole 0.5 mg Oral BID [MAY Hold] [...] OR [MAY Hold] acetaminophen, [MAY Hold] glucose, [MAR Hold] dextrose, [MAY Hold] glucagon (rDNA), [MAR Hold] dextrose, [MAY Hold] traMADol Objective: Vitals: [...] 90 Units, 90 Units, Subcutaneous, QAM AC [May] lisinopril (PRINIVIL;ZESTRIL) tablet 10 mg, 10 mg, [...] 40 mg, 40 mg, Oral, QAM AC [May] pramipexole (MIRAPEX) tablet 0.5 mg, 0.5 mg, Oral, BID [MAY Hold] pregabalin (LYRICA) capsule 75 mg, 75 mg, Oral, TID [MAY Hold] budesonide-formoterol (SYMBICORT) 160-4.5 MCG/ACT inhaler 2 puff, 2 puff, Inhalation, BID [May] sodium chloride flush 0.9 % injection 10 mL, 10 mL, Intravenous, 2 times per day [MAY Hold] sodium chloride flush 0.9 % injection 10 mL, 10 mL, Intravenous, PRN [MAY Hold] enoxaparin (LOVENOX) injection 40 mg, 40 mg, [...] 650 mg, 650 mg, Rectal, Q6H PRN [MAY Hold] piperacillin-tazobactam (ZOSYN) 3.375 g in dextrose 5 % 50 mL IVPB extended infusion (mini-bag), 3.375 g, Intravenous, Q8H [MAY Hold] glucose (GLUTOSE) 40 % oral gel 15 g, 15 g, Oral, PRN [MAY Hold] dextrose 50 % IV solution, 12.5 g, Intravenous, PRN [MAY Hold] glucagon (rDNA) injection 1 mg, 1 mg, Intramuscular, PRN [MAY Hold] dextrose 5 % solution, 100 mL/hr, [...] discussed healthy eating and basic carbohydrate counting. [facility] dietitian was in to see him yesterday. [...] around 9 am tomorrow morning with Dr. Peace. Consent signed and placed in chart. * Festus Pecae DPM - 03/22/2020 10:44 AM EST Podiatry [...] History: Mr. Little states he is doing well, has no [...] is 29.43 kg/m . CBC: Recent Labs 03/20/205 03/21/20 0550 03/22/20 0550 WBC 11.5* 7.5 5.9 HGB 11.8* 10.3* 10.5* PLT 253 221 247 BMP: Recent Labs 03/20/205 03/21/20 0550 03/22/20 0550 NA 134* 135 [...] moderate staph aureus. Patient was evaluated by waterproofer Dr. Peace, had bedside debridement. Had MRI [...] podiatry evaluation Rounding Hospitalist * Wellington Cohen, [facility] - 03/22/2020 1:06 AM EST Pharmacy Vancomycin Consult Vancomycin Day: 3 Current Dosin mg every 12 hours Temp max: 98.7 Recent Labs 03/20/205 03/21/20 0550 BUN 10 7 Recent Labs [...] will continue to monitor patient. Wellington Cohen [facility] 03/22/2020 1:06 AM * Rubens Wheeler RN - 03/21/2020 10:54 PM EST Dressing to right foot completed at this time. Dressing had small amount of serosanguinous drainage. Pt tolerated well. * Yulisa Ruiz LSW - 03/21/2020 2:20 PM EST KEIRA met with pt to complete assessment during quality rounds with biofuels plant manager. Pt is alert and oriented and pleasant throughout assessment. Pt is a 60 year old male admitted for foot cellulitis. Pt lives with his girl friend in their home in [place]. Pt has a nebulizer to use at [...] continue to follow and remain available. Yulisa SOLITARIOW 03/21/2020 Matt Rios RN - 03/21/2020 12:36 PM EST Quality [...] a living will or durable power of energy attorney for healthcare? denies If yes do we have a copy on file? n/a Do you or your family have any questions or concerns we haven't already discussed? Denies Lives with girlfriend. 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 Yulisa ORTIZ and food writer present for rounding. * Shona Chaney RN - 03/21/2020 8:[address] Peace in , debridement of wound performed by him. Culture taken, sent to lab. Pt tolerates well. 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 [...] loss Fluid Accumulation: 1 - Mild Extremities Semiconductor Development Technician Strength: Not Performed Estimated Daily Nutrient Needs: Energy (kcal): 6516-2058(18-23); Weight Used for Energy Requirements: Current Protein (g): 98-113(1.3-1.5); Weight Used for Protein Requirements: [place] Fluid (ml/day): 2100+; Method Used for Fluid [...] states right around 203# now is stable) [place] Body Weight: 166 lbs; % [place] Body Weight 123 % BMI: 29.3 Adjusted [...] Discharge Planning: Too soon to determine Contact: [id number] * Kiet Farah MD - 03/21/2020 6:52 [...] is 29.3 kg/m . CBC: Recent Labs 03/20/20 0045 03/21/20 0550 WBC 11.5* 7.5 HGB 11.8* 10.3* PLT 253 221 BMP: Recent Labs 03/20/20 0045 03/21/20 0550 NA 134* 135 K 3.6* 3.3* CL 97* 100 CO2 27 27 BUN 10 7 CREATININE 0.94 0.80 GLUCOSE 244* 160* Hepatic: Recent Labs 03/20/20 0045 AST 13 [...] IV vancomycin and Zosyn, awaiting consultation by waterproofer . May need debridement. Also may need [...] assessed. Clear drainage noted. * Bill Leavitt [facility] - 03/20/2020 4:23 AM EST [...] Jillian Little Date of : 1960 Acct: [id number] Primary Care Physician: Sara Lester DO Admit [...] 8. Depression 9. Diabetic neuropathy Discharge Medications: Daniel Littleley [place] Home Medication Instructions JAYDEN:[id number] Printed on:03/26/20 3927 Medication Information albuterol sulfate HFA 108 (90 [...] start 2 (TWO) days prior to surgery A-quezpctzjnar-H6-B12 (METANX) 3-90.314-2-35 MG CAPS capsule Take 1 [...] MOUTH TWICE DAILY WITH MEALS Nebulizers (COMPRESSOR/NEBULIZER) MISC Use for breathing tx every 4 hours [...] into the skin DAILY trimethoprim-polymyxin b (POLYTRIM) 40940-8.1 UNIT/ML-% ophthalmic solution INSTILL 1 DROP IN THE RIGHT EYE FOUR TIMES DAILY - - start 1 (ONE) day prior to surgery Umeclidinium [place] (INCRUSE ELLIPTA) 62.5 MCG/INH AEPB 1 puff inhaled daily VICTOZA 18 MG/3ML SOPN SC injection INJECT 1.8 mg under the skin once DAILY Diet: DIET CARB CONTROL; Dietary Nutrition Supplements: Diabetic Oral Supplement Dietary Nutrition Supplements: Wound Healing Oral Supplement Activity: As tolerates Follow-up: in 1 week with Sara Lester DO, follow-up with next week Consultants: Wrapper Rewinder , Dr. Peace Diagnostic Test: CBC: No [...] with his insulin and diabetes medications. His ghpcpfpwcpJ3g is 14%. Discussed with the patient potential [...] Procedures MRI FOOT RIGHT W WO CONTRAST Payton Lesterica L, DO [address] [address] Specialty Diagnoses / Procedures Referred By Contac t Referred To Contact Radiology Diagnoses Full incontinence of feces Chronic midline low back pain without sciatica Procedures MRI LUMBAR SPINE W WO CONTRAST Payton Lesterica L, DO [address] [place] [address] Referral ID Status Reason Start Date Expiration Date V isits Requested Visits Authorized [id number] Pending Review 02/19/2022 02/09/2023 1 1 Specialty Diagnoses / Procedures Referred By Contac t Referred To Contact Radiology Diagnoses Decreased pulse Procedures VL LOWER EXTREMITY ARTERIAL SEGMENTAL PRESSURES W PPG Payton Lesterica L, DO [address] [place] [address] Referral ID Status Reason Start Date Expiration Date Visits Re quested Visits Authorized [id number] Closed 04/10/2022 04/10/2023 1 1 Summary Purpose Family History No Family History Records Found No data available for this section No data available for this section No Family History Records Found No data available for this section No Family History Records Found No data available for this section No Family History Records FoundNo Family History Records FoundNo Family History Records FoundNo Family History Records FoundNo Family History Records FoundNo Family History Records FoundNo Family History Records FoundNo Family History Records FoundNo Family History Records FoundNo Family History Records FoundNo Family History Records FoundNo Family History Records Found Additional Source Comments Reason for Visit (unrecogniz ed section and content) Status Reason Specialty Diagnoses / Procedures Referred By Contact Referred To Contact Diagnoses Non-pressure chronic ulcer of right heel and midfoot with necrosis of muscle Type 2 diabetes mellitus with diabetic polyneuropathy L97.413, E11.42 Procedures [place] DEEP DISSEC FOOT INFEC,1 [place] PART EXCIS 5TH METATARSAL HEAD I AND D OF RIGHT FIFTH METATARSAL AND EXCESION OF BONE RIGHT FIFTH METATARSAL EXCERSION OF THE BONE RIGHT 5TH METATARSAL Festus Peace, DPM [address] [facility], [place] [address] [facility] Reason Comments Foot Injury relates stepped on r ailroad spike 2-3 weeks ago and has infection Status Reason Specialty Diagnoses / Procedures Referre d By Contact Referred To Contact Diagnoses Cellulitis of foot Back, MD Omid [address] [place] [address] [facility] Reason Comments Leg Swelling Pt has increased swe lling to right foot. Status Reason Specialty Diagnoses / Procedures Referre d By Contact Referred To Contact Closed Radiology Diagnoses Charcot's joint of right foot Cellulitis of right foot Diabetic neuropathic arthropathy (HCC) Procedures MRI FOOT RIGHT W WO CONTRAST Sara Lester L, DO [address] [place] [address] Reason Comments Pharyngitis Pt c/o sore throat x 1 week. Specialty Diagnoses / Procedures Referred By Contac t Referred To Contact Radiology Diagnoses Full incontinence of feces Chronic midline low back pain without sciatica Procedures MRI LUMBAR SPINE W WO CONTRAST Sara Lester L, DO [address] [place] [address] Referral ID Status Reason Start Date Expiration Date V isits Requested Visits Authorized [id number] Pending Review 02/19/2022 02/09/2023 1 1 Specialty Diagnoses / Procedures Referred By Contac t Referred To Contact Radiology Diagnoses Decreased pulse Procedures VL LOWER EXTREMITY ARTERIAL SEGMENTAL PRESSURES W PPG Sara Lester L, DO [address] [place] [address] Referral ID Status Reason Start Date Expiration Date Visits Re quested Visits Authorized [id number] Closed 04/10/2022 04/10/2023 1 1 Reason Comments Toe Pain Left great toe pain I think its getting infected patient is seeing wound care in [place] Reason Comments Foot Pain Foot pain/ infection x14 days My foot doctor is still on vacation Specialty Diagnoses / Procedures Referred By Dorothea t Referred To Contact Diagnoses Cellulitis of foot Hyperglycemia Osteomyelitis of great toe of left foot (HCC) Osteomyelitis of great toe (HCC) Kiet Farah MD [address] [place] [id number] [facility] [address] [place] [address] Referral ID Status Reason Start Date Expiration Date Visits Re quested Visits Authorized [id number] 1 1 Specialty Diagnoses / Procedures Referred By Dorothea baron Referred To Contact Radiology Diagnoses HALEY (acute kidney injury) ([facility]) Procedures US RENAL COMPLETE US RETROPERITONEAL COMPLETE Sara Lester, DO [address] [place] [address] Referral ID Status Reason Start Date Expiration Date Visits Re quested Visits Authorized [id number] Open 05/22/2023 05/21/2024 1 1 Reason Comments Foot Injury Left foot injury x1 day I woke up this morning with a sore on my foot Specialty Diagnoses / Procedures Referred By Dorothea t Referred To Contact Diagnoses Foot ulcer, left, limited to breakdown of skin (HCC) Omid Carias MD [address] [place] [address] [facility] [address] [place] [address] Referral ID Status Reason Start Date Expiration Date Visits Re quested Visits Authorized [id number] 1 1 Reason Comments Fever Pt reports headache, diarrhea, emesis, weakness, and fever for about one week Ordered Prescriptions (unrec ognized section and content) Prescription Sig Dispensed Refills Start Date End Da te Misc. Devices (WALKER [employer]ELS) MISCIndications:Osteomye litis of right foot, unspecified type (HCC),Cellulitis of right foot 1 each by Does not apply route once for 1 dose 1 each 0 03/26/2020 O-piibpujntpgz-H1-B12 (METANX) 3-90.314-2-35 MG CAPS capsule Take 1 [...] 10 days 30 capsule 0 07/05/2023 07/15/2023 Prescription Sig Dispensed Refills Start Date End Da te levoFLOXacin (LEVAQUIN) 500 MG tablet Take 1 tablet by mouth daily for 10 days 10 tablet 0 10/08/2023 10/18/2023 Scheduled Active and Recently Administ ered Medications [...] For 1 dose, Send home with pt 2238 (Not Given - Pr ovider: Micaela Cohen RN - Reason: Other - Comment: sent home with pt) Scheduled Medication Order 06/19/2022 06/20/2022 06/21/2022 ampicillin-sulbactam (UNASYN) 3,000 mg in sodium chloride 0.9 % 100 mL IVPB (mini-bag) (COMPLETED) 3,000 mg, IntraVENous, ONCE, 1 dose, On Elenita 06/21/22 at 1300, Antimicrobial Indications: Skin and Soft Tissue Infection 1313 (New Bag - Prov ider: Anjel Olivia RN)1346 (Stopped - Provider: Paulina Keys RN) clindamycin (CLEOCIN) capsule 300 mg (COMPLETED) 300 mg, Oral, ONCE, 1 dose, On Elenita 06/21/22 at 1300, Antimicrobial Indications: Skin and Soft Tissue Infection 1307 (Given - Provid er: Anjel Olivia RN) ketorolac (TORADOL) injection 15 mg (COMPLETED) 15 mg, IntraVENous, ONCE, 1 dose, On Elenita 06/21/22 at 1300 1307 (Given - Provid er: Anjel Olivia RN) Scheduled Medication Order 06/28/2022 06/29/2022 06/30/2022 amitriptyline (ELAVIL) tablet 25 mg 25 mg, Oral, NIGHTLY, First dose on Sat06/26/22 at 2100, Until Discontinued 214 (Given - Provider: Susan Read RN) 215 (Given - Provider: Matt Velasquez RN) 2100 (Due) atorvastatin (LIPITOR) tablet 40 mg 40 mg, Oral, DAILY, First dose on Sat06/26/22 at 1830, Until Discontinued 08 (Given - Provider: Rosi Brooke RN) 08 (Given - Provider: Audrey Lau RN) 0826 (Given - Provider: Misty Carranza, RN) buPROPion (WELLBUTRIN XL) extended release tablet 150 mg 150 mg, Oral, EVERY MORNING, First dose on Sat06/27/22 at 0900, Until Discontinued, Do not crush or break. 0823 (Given - Provider: Rosi Brooke RN) 08 (Given - Provider: Audrey Lau, DRAGAN) 0826 (Given - Provider: Misty Carranza, DRAGAN) cefepime (MAXIPIME) 2,000 mg in sodium chloride 0.9 % 50 mL IVPB (mini-bag) 2,000 mg, IntraVENous, at 12.5 mL/hr, Administer over 240 Minutes, EVERY 8 HOURS SCHEDULED (3 times per day), First dose on Sat06/27/22 at 1200, For 7 days 0006 (Rate/Dose Verify - Provider: Josh Matthew RN)0113 (Stopped - Provider: Johs Matthew RN)0113 (Stopped - Provider: Josh Matthew RN)0214 (Stopped - Provider: Josh Matthew RN)0632 (New Bag - Provider: Josh Matthew RN)0632 (Rate/Dose Verify - Provider: Josh Matthew RN)0647 (Rate/Dose Verify - Provider: Josh Matthew RN)0908 (Stopped - Provider: Rosi Brooke RN)1033 (Stopped - Provider: Rosi Brooke RN)1350 (New Bag - Provider: Paulina Keys, RN)1718 (Stopped - Provider: Susan Read, DRAGAN)1727 (Stopped - Provider: Anton Duran, DRAGAN)2235 (New Bag - Provider: Susan Read RN) 0215 (Stopped - Provider: Susan Read RN)0215 (Stopped - Provider: Susan Read RN)0235 (Stopped - Provider: Susan Read RN)0637 (New Bag - Provider: Susan Read RN)0938 (Stopped - Provider: Audrey Lau, DRAGAN)1358 (New Bag - Provider: Audrey Lau RN)1740 (Stopped - Provider: Audrey Lau RN)2158 (New Bag - Provider: Matt Velasquez, DRAGAN) 0158 (Stopped - Provider: Matt Velasquez, DRAGAN)0625 (New Bag - Provider: Josh Matthew RN)0917 (Stopped - Provider: Misty Carranza, DRAGAN)1400 (Due)2200 (Due) dulaglutide (TRULICITY) SC injection 1.5 [...] RN) 0826 (Given - Provider: Misty Carranza, DRAGAN) enoxaparin (LOVENOX) injection 40 mg 40 mg, SubCUTAneous, DAILY, First dose on Sat06/26/22 at 1830, Until Discontinued, Indication of Use: Prophylaxis-DVT/PE, Administer by deep subCUTAneous injection with pt lying down. Alternate injection sites on abdominal wall. Do not rub site after injection. Check with provider prior to any invasive procedure. 0822 (Given - Provider: Rosi Brooke RN) 0811 (Given - Provider: Audrey Lau RN) 0825 (Given - Provider: Misty Carranza, RN) insulin [...] RN) 08 (Given - Provider: Audrey Lau RN)2201 (Given - Provider: Matt Velasquez RN) 0832 (Given - Provider: Misty Carranza, DRAGAN)2100 (Due) insulin lispro (HUMALOG) injection vial 0-16 [...] - Comment: [phone] (Given - Provider: Anton Duran RN) 0747 (Not Given - Provider: Audrey Lau [...] Over 349 4 Units and notify physician 2108 (Not Given - Provider: Susan Read RN [...] Audrey Lau RN)1201 (Given - Provider: Audrey Lau RN)1652 (Given - Provider: Audrey Lau RN) 0832 (Given - Provider: Misty Carranza RN)1200 (Due)1700 (Due) insulin lispro (HUMALOG) injection vial 15 Units (COMPLETED) 15 Units, SubCUTAneous, ONCE, 1 dose, On Sat06/28/22 at 2130 2141 (Given - Provider: Susan eRad RN) H-oycwhgrqneoi-O4-B12 3-35-2 mg (METANX) capsule (Patient Supplied) 1 [...] into cool food or drink until dissolved. 08 (Given - Provider: Rosi Brooke RN)2051 (Not Given - Provider: Susan Read RN - Reason: Other - Comment: due at 1700. not given by previous shift) 08 (Given - Provider: Audrey Lau RN)161 (Given - Provider: Audrey Lau RN) 08 (Given - Provider: Misty Carranza RN)170 (Due) metFORMIN (GLUCOPHAGE) tablet 1,000 mg 1,000 mg, Oral, 2 TIMES DAILY WITH MEALS, First dose on Sat06/26/22 at 1830, Until Discontinued 822 (Given - Provider: Rosi Brooke RN)2140 (Given - Provider: Susan Read RN - Comment: not given by previous shift @ 1700) 08 (Given - Provider: Audrey Lau RN)161 (Given - Provider: Audrey Lau RN) 08 (Given - Provider: Misty Carranza RN)170 (Due) mometasone-formoterol (DULERA) 200-5 MCG/ACT inhaler 2 [...] Lau RN) 08 (Given - Provider: Misty Carranza RN) pantoprazole (PROTONIX) tablet 40 mg 40 mg, Oral, DAILY BEFORE BREAKFAST, First dose on Sat06/27/22 at 0700, Until Discontinued, Do not crush or break. Substituted for Omeprazole (PRILOSEC). 0630 (Given - Provider: Josh Matthew, DRAGAN) 0623 (Given - Provider: Susan Read, DRAGAN) 0621 (Given - Provider: Josh Matthew RN) pregabalin (LYRICA) capsule 75 mg 75 mg, Oral, 3 TIMES DAILY, First dose on Sat06/26/22 at 2100, Until Discontinued 08 (Given - Provider: Rosi Brooke RN)134 (Given - Provider: Paulina Keys RN)2141 (Given - Provider: Susan Read RN) 08 (Given - Provider: Audrey Lau, DRAGAN)140 (Given - Provider: Audrey Lau, DRAGAN)2152 (Given - Provider: Matt Velasquez, DRAGAN) 08 (Given - Provider: Misty Carranza RN)1400 (Due)2099 (Due) rOPINIRole (REQUIP) tablet 3 mg 3 mg, Oral, NIGHTLY, First dose on Sat06/26/22 at 2100, Until Discontinued 2141 (Given - Provider: Susan Read RN) 2152 (Given - Provider: Matt Velasquez RN) 2099 (Due) sodium chloride flush 0.9 [...] Misty Carranza RN - Reason: IV Fluid Infusing)2100 (Due) vancomycin (VANCOCIN) 1,250 mg in sodium chloride 0.9 % 250 mL IVPB (CANCELED) 1,250 mg (13.3 mg/kg), IntraVENous, at 166.7 mL/hr, Administer over 90 Minutes, EVERY 18 HOURS, First dose on Sat06/27/22 at 0800, Please check ICU refrigerator for patient specific bag 0240 (New Bag - Provider: Josh Matthew RN)0410 (Stopped - Provider: Josh Matthew RN)2023 (New Bag - Provider: Susan Read RN)2152 (Rate/Dose Verify - Provider: Susan Read RN)2152 (Rate/Dose Verify - Provider: Susan Read RN)2232 (Stopped - Provider: Susan Read RN) 0918 [...] bag 1108 (New Bag - Provider: Audrey Lau RN)1251 (Stopped - Provider: Audrey Lua RN)2358 (New Bag - Provider: Matt Velasquez RN) 0321 (Stopped - Provider: Matt Velasquez RN)1100 (Due)2300 (Due) vancomycin (VANCOCIN) intermittent dosing [...] of order. 0113 (Stopped - Provider: Josh Matthew, RN)0214 (Stopped - Provider: Josh Matthew, RN)0631 (New Bag - Provider: Josh Matthew RN)0647 (Rate/Dose Verify - Provider: Josh Matthew, RN)0908 (Stopped - Provider: Rosi Brooke, RN)1349 (New Bag - Provider: Paulina Keys, DRAGAN)1718 (Stopped - Provider: Susan Read, DRAGAN) 1357 (New Bag - Provider: Audrey Lau, DRAGAN) 0624 (New Bag - Provider: Josh Matthew, DRAGAN)0920 (Stopped - Provider: Misty Carranza RN) acetaminophen [...] Until Discontinued, Do not crush or break. 175 (Not Given - Provider: Adrienne Cooper RN - Reason: Patient took at home) 08 (Given - Provider: Adrienne Cooper RN) 08 (Given - Provider: Janice Matias, DRAGAN) atorvastatin (LIPITOR) tablet 40 mg 40 mg, Oral, DAILY, First dose on Sat07/03/23 at 1815, Until Discontinued 1754 (Not Given - Provider: Adrienne Cooper RN - Reason: Patient took at home) 08 (Given - Provider: Adrienne Cooper RN) 08 (Given - Provider: Janice Matias RN) buPROPion (WELLBUTRIN XL) extended release tablet 150 mg 150 mg, Oral, EVERY MORNING, First dose on Elenita 07/04/23 at 0900, Until Discontinued, Do not crush or break. 08 (Given - Provider: Adrienne Cooper RN) 822 (Given - Provider: Janice Matias RN) doxycycline (VIBRAMYCIN) 100 mg in sodium chloride 0.9 % 100 mL IVPB 100 mg, IntraVENous, EVERY 12 HOURS, 14 doses, First dose on Elenita 07/04/23 at 1230, Last dose on Elenita 07/11/23 at 0030, Antimicrobial Indications: Skin and Soft Tissue Infection, Skin duration of therapy: 7 days, Suspected Organism(s): MRSA 1335 (New Bag - Provider: Adrienne Cooper RN)1435 (Stopped - Provider: Adrienne Cooper RN)2351 (New Bag - Provider: Maria Esther Amado RN) 0105 (Stopped - Provider: Maria Esther Amado RN)1214 (Not Given - Provider: Janice Matias RN - Reason: Loss of IV access) DULoxetine (CYMBALTA) extended release capsule 60 mg 60 mg, Oral, DAILY, First dose on Sat07/03/23 at 1815, Until Discontinued, Do not crush or break. May add contents of capsule to apple juice or apple sauce, but not chocolate. 175 (Not Given - Provider: Adrienne Cooper RN - Reason: Patient took at home) 0809 (Given - Provider: Adrienne Cooper RN) 08 (Given - Provider: Janice Matias, DRAGAN) enoxaparin (LOVENOX) injection 40 mg 40 mg, SubCUTAneous, DAILY, First dose on Sat07/03/23 at 1815, Until Discontinued, Indication of Use: Prophylaxis-DVT/PE, Administer by deep subCUTAneous injection with pt lying down. Alternate injection sites on abdominal wall. Do not rub site after injection. Check with provider prior to any invasive procedure. 1812 (Given - Provider: Adrienne Cooper RN) 08 (Given - Provider: Adrienne Cooper RN) 08 (Given - Provider: Janice Matias, DRAGAN) glipiZIDE [...] 08 (Given - Provider: Janice Matias RN) insulin lispro (HUMALOG) injection vial 0-4 Units 0-4 Units, SubCUTAneous, NIGHTLY, First dose on Sat07/03/23 at 2100, Until Discontinued, If continuous tube feedings/TPN/NPO, give correction dose based on result, no reduction in dose. If eating or bolus tube feeding: Corrective Bedtime Algorithm Glucose: Dose: 70-299 No Insulin 300-349 4 Units Over 349 4 Units and notify physician 2227 (Not Given - Provider: Maria Esther Amado RN - Reason: Order parameters not met - Comment: FSBS 157.) 2157 (Not Given - Provider: Maria Esther Amado RN - Reason: Order parameters not met - Comment: FSBS 241.) 2100 (Due) insulin lispro (HUMALOG) injection vial 0-8 Units 0-8 Units, SubCUTAneous, 3 TIMES DAILY WITH MEALS, First dose on Sat07/03/23 at 1815, Until Discontinued, Medium Dose Corrective Algorithm Glucose: Dose: 70-199 No Insulin 200-249 2 Units 250-299 4 Units 300-349 6 Units Over 349 8 Units and notify physician 1802 (Not Given - Provider: Adrienne Cooper RN [...] Until Discontinued, Substituted for Insulin aspart (NOVOLOG). 1802 (Not Given - Provider: Adrienne Cooper RN [...] parameters not met - Comment: 114)1700 (Due) ipratropium (ATROVENT) 0.02 % nebulizer solution [...] given at 10AM not due at this time.)2037 (Given - Provider: Emelina Jin RCP) 0857 (Given - Provider: Briana Rust RCP)1300 (Due - Provider: Sho Everett RCP)2100 (Due - Provider: Sho Everett RCP) F-byzwosklrexg-B8-B12 3-35-2 mg (METANX) capsule (Patient Supplied) 1 capsule, Oral, DAILY, First dose on Sat07/03/23 at 1815, Until Discontinued 1803 (Not Given - Provider: Adrienne Cooper RN [...] into cool food or drink until dissolved. 1813 (Given - Provider: Adrienne Cooper RN) 0809 (Given - Provider: Adrienne Cooper RN)1730 (Given - Provider: Adrienne Cooper RN) 0823 (Given - Provider: Janice Matias RN)1700 (Due) mometasone-formoterol (DULERA) 200-5 MCG/ACT inhaler 2 puff 2 puff, Inhalation, 2 TIMES DAILY RESP, First dose on Sat07/03/23 at 2000, Until Discontinued, Substituted for Budesonide-Formoterol (SYMBICORT). 2046 (Given - Provider: Emelina Jin RCP) 0953 (Given - Provider: Sho Everett RCP)2037 (Given - Provider: Emelina Jin RCP) 09 (Given - Provider: Briana Rust RCP)2100 (Due - Provider: Sho Everett RCP) multivitamin 1 tablet 1 tablet, Oral, DAILY, First dose on Sat07/03/23 at 1815, Until Discontinued 175 (Not Given - Provider: Adrienne Cooper RN - Reason: Patient took at home) 08 (Given - Provider: Adrienne Cooper RN) 08 (Given - Provider: Janice Matias RN) pantoprazole (PROTONIX) tablet 40 mg 40 mg, Oral, 2 TIMES DAILY BEFORE MEALS, First dose on Elenita 07/04/23 at 0700, Until Discontinued, Do not crush [...] Infection, Skin duration of therapy: 7 days 181 (New Bag - Provider: Adrienne Cooper RN)220 (Stopped - Provider: Maria Esther Amado RN)2207 [...] Amado RN)0700 (Stopped - Provider: Janice Matias, RN)1015 (Not Given - Provider: Janice Matias RN - Reason: Loss of IV access)1815 (Due) povidone-iodine (BETADINE) 10 % external solution Topical, 2 TIMES DAILY, First dose on Sat07/04/23 at 0930, Foot and leg with DSD, 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 wet-dry 1047 (Given - Provider: Adrienne Cooper RN)210 (Given - Provider: Maria Esther Amado RN) 0827 (Given - Provider: Janice Matias RN)2099 (Due) pregabalin (LYRICA) capsule 75 mg 75 mg, Oral, 3 TIMES DAILY, First dose on Sat07/03/23 at 2100, Until Discontinued 2041 (Given - Provider: Maria Esther Amado RN) 0809 (Given - Provider: Adrienne Cooper RN)1334 (Given - Provider: Adrienne Cooper RN)210 (Given - Provider: Maria Esther Amado RN) 0823 (Given - Provider: Janice Matias RN)1400 (Due)2099 [...] Amado RN) 08 (Given - Provider: Janice Matias, DRAGAN)2100 (Due) vitamin B-12 (CYANOCOBALAMIN) tablet 1,000 mcg [...] or less into rate field of order. 1816 (New Bag - Provider: Adrienne Cooper RN)2211 (Stopped - Provider: Maria Esther Amado RN) 227 (Restarted - Provider: Maria Esther Amado RN)1047 (New Bag - Provider: Adrienne Cooper RN)2108 (Stopped - Provider: Maria Esther Amado RN)2110 (New Bag - Provider: Maria Esther Amado RN)2350 (Stopped - Provider: Maria Esther Amado RN) 025 (Restarted - Provider: Maria Esther Amado RN) [...] spasms 2041 (Given - Provider: Maria Esther mAado RN) 2101 (Given - Provider: Maria Esther [...]
Care Teams (unrecognized sec tion and content) Geodetic Surveyor Relationship Specialty Start Date End Date Sara Lester, DO [address] [place] [address] PCP - General 03/10/15 Geodetic Surveyor Relationship Specialty Start Date End Date Sara Lester, DO [address] [place] [address] PCP - General 03/10/15 Geodetic Surveyor Relationship Specialty Start Date End Date Sara Lester, DO [address] [place] [address] PCP - General 03/10/15 Geodetic Surveyor Relationship Specialty Start Date End Date Sara Lester DO [address] [place] [address] [facility] 03/10/15 Geodetic Surveyor Relationship Specialty Start Date End Date Sara Lester DO [address] [place] [address] [facility] 03/10/15 Geodetic Surveyor Relationship Specialty Start Date End Date Sara Lestre DO [address] [address] [facility] 03/10/15 Geodetic Surveyor Relationship Specialty Start Date End Date Sara Lester DO [address] [place] [address] [facility] 03/10/15 Geodetic Surveyor Relationship Specialty Start Date End Date Sara Lester DO [address] [place] [address] [facility] 03/10/15 Geodetic Surveyor Relationship Specialty Start Date End Date Sara Lester DO [address] [place] [address] [facility] 03/10/15 Geodetic Surveyor Relationship Specialty Start Date End Date Sara Lester DO [address] [place] [address] [facility] 03/10/15 (unrecognized sect ion and content) No Status Records FoundNo Status Records FoundNo Status Records FoundNo Status Records FoundNo Status Records FoundNo Status Records FoundNo Status Records FoundNo Status Records FoundNo Status Records FoundNo Status Records FoundNo Status Records FoundNo Status Records FoundNo Status Records FoundNo Status Records FoundNo Status Records Found INFORMATION SOURCE (unrecogn ized section and content) DATE CREATED AUTHOR 12/13/2021 [facility] DATE CREATED AUTHOR AUTHOR'S ORGANIZ ATION 07/11/2023 [facility] DATE CREATED AUTHOR AUTHOR'S ORGANIZ ATION 08/30/2023 [facility] DATE CREATED AUTHOR AUTHOR'S ORGANIZ ATION 09/24/[address] [facility] DATE CREATED AUTHOR AUTHOR'S ORGANIZ ATION 09/25/[address] [facility] DATE CREATED AUTHOR AUTHOR'S ORGANIZ ATION 09/26/[address] [facility] DATE CREATED AUTHOR AUTHOR'S ORGANIZ ATION 10/08/2023 [facility] DATE CREATED AUTHOR AUTHOR'S ORGANIZ ATION 10/22/2023 Caitlin coreas FOR RECORDS PERTAINING TO PATIENTS WHO ARE [...] BE BASED ON THE PRIMARY CLINICAL RECORDS. [employer] provides no warranty or guarantee of the accuracy or completeness of information in this document.
== END 2023-10-21 10:01 | disposition home or self-care (01) ==
LOC: WC 10-22 10:30
PROVIDERS: PCP Student in an Organized Health Care Education/Training Program; Visit Provider Physician Assistant
DX: E11.621 Type 2 diabetes mellitus with foot ulcer (principal); L97.412 Non-pressure chronic ulcer of right heel and midfoot with fat layer exposed; L97.428 Non-pressure chronic ulcer of left heel and midfoot with other specified severity; M14.672 Charcot's joint, left ankle and foot
CPT/HCPCS: 11043; 29445

== ENCOUNTER 2023-10-29 16:02 | Outpatient (OUT) | payer MEDICARE, MEDICAID, SELFPAY | END 2023-10-29 16:03 | disposition home or self-care (01) | LOC: WC 16:02 | PROVIDERS: PCP Student in an Organized Health Care Education/Training Program; Visit Provider Physician Assistant | DX: E11.621 Type 2 diabetes mellitus with foot ulcer (principal); L97.428 Non-pressure chronic ulcer of left heel and midfoot with other specified severity; L97.412 Non-pressure chronic ulcer of right heel and midfoot with fat layer exposed; L97.418 Non-pressure chronic ulcer of right heel and midfoot with other specified severity | CPT/HCPCS: 29445 ==

== ENCOUNTER 2023-11-08 11:56 | Outpatient (OUT) | payer MEDICARE, MEDICAID, SELFPAY | END 2023-11-08 11:57 | disposition home or self-care (01) | LOC: WC 11:56 | PROVIDERS: PCP Student in an Organized Health Care Education/Training Program; Visit Provider Podiatrist Foot & Ankle Surgery | DX: E11.621 Type 2 diabetes mellitus with foot ulcer (principal); L97.428 Non-pressure chronic ulcer of left heel and midfoot with other specified severity; L97.412 Non-pressure chronic ulcer of right heel and midfoot with fat layer exposed; L97.418 Non-pressure chronic ulcer of right heel and midfoot with other specified severity | CPT/HCPCS: 11042 ==